=== PATIENT | female | born 1965 | race Caucasian/White ===

== ENCOUNTER 2017-05-11 14:37 | Emergency (ER) | payer OTHER ==
[~2017-05-11] VITALS: Ht 165.1 cm; Wt 56.2 kg
[~2017-05-11 14:37] MED LIST: 100CC Multi-Ad1 EACH; ACET250 PO; ACET325 PO; ACETAZOLAMIDE PO; ALBU3IS INH; ALBU90I INH; ALBU90OI INH; ALBU90OI6 INH; ALBU90OI61 INH; ALBUIS IH; AMOCLA875 PO; AMOX500 PO; ASCO500 PT; AZIT250 PO; BIOTIN-D1 GM PO; BISA10S PR; BUDE.5 NEB; BUDE6HFA; BUDE6HFA INH; BUME2 PO; Bupropion Xl150 MG PO; CALCA400CH PO; CEPH500 PO; CHLORHEXIDINE FL1 ML; CHLORHEXIDINE FL1 ML MC; CHOL10002; CHOL10002 PO; CIPR500 PO; CODGUAEL PO; CULTURELLE1 EACH PT; CYCL10 PO; Cubicin500 MG/VIA IV; DELTASONE20 MG PO; DIAZ5 PO; DOCU100 PO; DOXY100 PO; DULERA 100 MCG/13 GM IH; DULERA 200 MCG/13 GM INH; DULO30 PO; Desyrel50 MG PO; ENOX30I SC; EPOE4000I SC; ETHA400 PO; Esgic Tablet1 EACH PO; FAMO20 PO; FENT25TP TOP; FENT50TP TOP; FLUSAL5005 IH; FURO20 PO; Floxin10 ML; GUAI600T33 PO; HYDACE10B PO; HYDACE5 PO; HYDMOR4 PO; HYDR-86; HYDR-86 PO; HYDR1TAB94; HYDR1TAB94 PO; Heparin 5,5000 U/0.5 IJ; Heparin 5,5000 U/0.5 SC; Hydrocodone-Ap1 EA26 PO; IBUP600 PO; INSLIS75I; Ipratr-Albuterol3 ML INH; Itraconazole100 MG PO; K-Dur 20 meq T20 MEQ PO; K-Dur10 MEQ; LACT10SY PO; LAVAP17G PO; LEVA.63IS INH; LEVFLO250; LEVFLO250 PO; LEVO750 PO; LEVOFLOXACIN750 MG PO; LIDO5TP TOP; LORA.5 PO; MECL12.5 PO; MELO7.5 PO; MEROPENEM1000 MG IV; METO10 PO; METPRE4DP PO; MIRT15 PO; Maxalt Mlt5 MG PO; Micro-K10 MEQ PT; Mirtazapine7.5 MG PO; NICO21TP; NICO21TP TD; Nebcin40 MG/ML; Nebcin40 MG/ML IV; Norco 5-325 Ta1 EACH PO; OMEP20ER PO; ONDA4 PO; OSTERA TABLET1 EACH PO; OXYACE5T PO; OXYC5 PO; Omeprazole20 M1; PANT20 PO; PARO20 PO; POTCHL10ER PO; POTCHL20ER PO; PRED10 PO; PRED20 PO; PRED5 PO; PREG100 PO; PREG50 PO; PREVPAC PO; PROC5 PO; PROM25 PO; Percocet 5-3251 EACH PO; Potassium Chlo10 ME1 PO; Prednisone10 MG PO; Prednisone20 MG PO; Pseudoephedrine30 MG PO; QUET25 PT; RIFA300 PO; ROBITUSSIN COU118 M1 PO; ROFL500T PO; Ropinirole HC0.25 MG PO; Ropinirole HCl0.5 MG PO; Ropinirole HCl1 MG PO; SENN187 PO; SERT100 PO; SODCHL.65S; SPIR25 PO; SPIRIVA; SUMA25 PO; Spironolactone25 MG PO; TETR250 PO; TIOT18 IH; TIOT18 INH; TOBRAMYCIN; TOBRAMYCIN IV; TRAZ50 PO; Tazicef1 G1 IV; VALS80 PO; VANCO-0.9%750 MG/150 IV; VANCOMYCIN750 MG/250 IV; VARE1 PO; VITAMIN D-32000 UNIT PO; Ventolin Soln3 ML INH; Vitamin D2000 UNIT PO; ZINC15 PT; ZINC220 PO; ZOLP10 PO; Zosyn 4.54.5 GM/100 IV; [UNRECOGNIZED DRUG - OTHER]
[2017-05-11] MEDS ORDERED: ASCO500 PO (15:09)
[2017-05-11] MEDS ORDERED: ACYC200 PO (15:10)
[2017-05-11] MEDS ORDERED: BUSP5 PO (15:11)
[2017-05-11] MEDS ORDERED: ROPI.25 PO (15:11)
[2017-05-11] MEDS ORDERED: ACET500 PO (15:13)
[2017-05-11] MEDS ORDERED: PREG100 PO (15:13)
[2017-05-11] MEDS ORDERED: MIRT15ST MM (15:14)
[2017-05-11] MEDS ORDERED: GUAI600T33 PO (15:15)
[2017-05-11 15:32] LABS: Base Excess Venous 8.7 mmol/L; Bicarbonate Venous 30.8 mmol/L (24.0-30.0); PCO2 Venous 59.4 mmHg (38-42); PO2 Venous 175 mmHg (38-42); pH Blood Venous 7.37 (7.34-7.37)
[2017-05-11 15:46] LABS: BASOPHILS ABSOLUTE AUTO 0.03 K/mm3 (0.00-0.23); BASOPHILS PERCENT AUTO 0 % (0-2); EOSINOPHILS ABSOLUTE AUTO 0.09 K/mm3 (0.00-0.68); EOSINOPHILS PERCENT AUTO 1 % (0-6); Hematocrit 38.4 % (33.0-51.0); Hemoglobin 11.3 g/dL (11.5-16.0); IMMATURE GRAN ABSOLUTE AUTO 0.02 K/mm3 (0.00-0.10); IMMATURE GRAN PERCENT AUTO 0 % (0-1); LYMPHOCYTES ABSOLUTE AUTO 0.69 K/mm3 (0.84-5.20); LYMPHOCYTES PERCENT AUTO 6 % (21-46); MONOCYTES ABSOLUTE AUTO 0.46 K/mm3 (0.16-1.47); MONOCYTES PERCENT AUTO 4 % (4-13); Mean Corpuscular HGB 25.4 pg (26.0-34.0); Mean Corpuscular HGB Conc 29.4 g/dL (31.5-36.5); Mean Corpuscular Volume 86 fL (80-100); Mean Platelet Volume 10.1 fL (9.1-12.4); NEUTROPHILS ABSOLUTE AUTO 10.95 K/mm3 (1.96-9.15); NEUTROPHILS PERCENT AUTO 90 % (41-73); Platelet Count 248 K/mm3 (150-400); RDW Coefficient Variation 16.4 % (11.7-14.2); RDW Standard Deviation 52.7 fL (35.1-46.3); Red Blood Cell Count 4.45 M/mm3 (3.80-5.20); White Blood Cell Count 12.24 K/mm3 (4.00-11.30)
[2017-05-11 15:48] LABS: Influenza A Negative (NEGATIVE); Influenza B Negative (NEGATIVE)
[2017-05-11 16:00] LABS: Alanine Aminotransfer (ALT/SGP 13 U/L (12-78); Albumin, Blood 3.1 g/dL (3.4-5.0); Albumin/Globulin Ratio 0.6 (0.8-1.8); Alk Phos 172 U/L (50-136); Anion Gap 5 mmol/L (6-16); Aspartate Aminotrans (AST/SGOT 11 U/L (12-37); Bilirubin, Total 0.5 mg/dL (0.1-1.0); Blood Urea Nitrogen 16 mg/dL (8-24); Bun/Creatinine Ratio 19.4 (12.0-20.0); CO2, Blood 33 mmol/L (21-32); Calcium, Blood 9.7 mg/dL (8.5-10.1); Chloride, Blood 103 mmol/L (98-108); Creatinine, Blood 0.83 mg/dL (0.40-1.00); Glomerular Filtration Rate >60 (60-); Glucose, Blood 123 mg/dL (70-99); Potassium, Blood 3.9 mmol/L (3.5-5.5); Sodium, Blood 141 mmol/L (136-145); Total Protein, Blood 8.1 g/dL (6.4-8.2)
[2017-05-11] MEDS ORDERED: Cleocin HCl300 MG PO (17:46)
[2017-05-11] MEDS ORDERED: LEVO750 PO (17:46)
[2018-03-14] MEDS ORDERED: TRAZ150T57 (17:48)
[2018-03-14] MEDS ORDERED: Zanaflex2 M1 PO (17:48)
[2018-03-14] MEDS ORDERED: PANT40 PO (17:48)
[2018-03-14] MEDS ORDERED: IRON150C PO (17:49)
[2018-03-14] MEDS ORDERED: Vitamin C100 M1 PO (17:49)
[2018-03-14] MEDS ORDERED: STIOLTO RESPIMAT4 GM INH (20:40)
[2018-03-17] MEDS ORDERED: PRED10 PO (10:36)
== END 2017-05-11 18:45 | disposition home or self-care (01) ==
LOC: ER 14:37
PROVIDERS: Physician Assistant
DX: J18.9 Pneumonia, unspecified organism (principal); Z79.899 Other long term (current) drug therapy; Z79.52 Long term (current) use of systemic steroids; F41.9 Anxiety disorder, unspecified; I10 Essential (primary) hypertension; J44.9 Chronic obstructive pulmonary disease, unspecified; Z87.891 Personal history of nicotine dependence
CPT/HCPCS: 31720; 36415; 71046; 80053; 82803; 83605; 83880; 84484; 85025; 87040; 87804; 93005; 93010; 94640; 96365; 96375; 99284; J1170; J2405

== ENCOUNTER 2017-05-24 14:51 | Emergency (ER) | payer OTHER ==
[~2017-05-24] VITALS: Ht 165.1 cm; Wt 56.2 kg
[~2017-05-24 14:51] MED LIST changes: +ACET500 PO; +ACYC200 PO; +ASCO500 PO; +BUSP5 PO; +Cleocin HCl300 MG PO; +MIRT15ST MM; +ROPI.25 PO
[2017-05-24 16:35] LABS: BASOPHILS ABSOLUTE AUTO 0.07 K/mm3 (0.00-0.23); BASOPHILS PERCENT AUTO 1 % (0-2); EOSINOPHILS ABSOLUTE AUTO 0.17 K/mm3 (0.00-0.68); EOSINOPHILS PERCENT AUTO 2 % (0-6); Hemoglobin 11.6 g/dL (11.5-16.0); IMMATURE GRAN ABSOLUTE AUTO 0.04 K/mm3 (0.00-0.10); IMMATURE GRAN PERCENT AUTO 0 % (0-1); LYMPHOCYTES ABSOLUTE AUTO 0.93 K/mm3 (0.84-5.20); LYMPHOCYTES PERCENT AUTO 9 % (21-46); MONOCYTES ABSOLUTE AUTO 0.27 K/mm3 (0.16-1.47); MONOCYTES PERCENT AUTO 3 % (4-13); Mean Corpuscular HGB 25.2 pg (26.0-34.0); Mean Corpuscular Volume 87 fL (80-100); NEUTROPHILS ABSOLUTE AUTO 8.69 K/mm3 (1.96-9.15); NEUTROPHILS PERCENT AUTO 85 % (41-73); Platelet Count 249 K/mm3 (150-400); RDW Coefficient Variation 16.8 % (11.7-14.2); RDW Standard Deviation 53.5 fL (35.1-46.3); White Blood Cell Count 10.17 K/mm3 (4.00-11.30)
[2017-05-24 16:45] LABS: Alanine Aminotransfer (ALT/SGP 15 U/L (12-78); Albumin, Blood 3.2 g/dL (3.4-5.0); Albumin/Globulin Ratio 0.8 (0.8-1.8); Alk Phos 142 U/L (50-136); Anion Gap 2 mmol/L (6-16); Aspartate Aminotrans (AST/SGOT 15 U/L (12-37); Bilirubin, Total 0.2 mg/dL (0.1-1.0); Blood Urea Nitrogen 18 mg/dL (8-24); Bun/Creatinine Ratio 21.8 (12.0-20.0); CO2, Blood 40 mmol/L (21-32); Calcium, Blood 8.9 mg/dL (8.5-10.1); Chloride, Blood 99 mmol/L (98-108); Creatinine, Blood 0.83 mg/dL (0.40-1.00); Globulin, Blood 4.2 g/dL (2.2-4.0); Glomerular Filtration Rate >60 (60-); Glucose, Blood 132 mg/dL (70-99); Potassium, Blood 3.5 mmol/L (3.5-5.5); Sodium, Blood 141 mmol/L (136-145); Total Protein, Blood 7.4 g/dL (6.4-8.2)
[2017-05-24 16:57] LABS: Source, Urine Clean Catch
[2017-05-24 17:02] LABS: Bilirubin, Urine Neg (Neg); Blood, Urine 1+ (Neg); Glucose Qualitative, Urine Neg (Neg); Ketones, Urine Neg (Neg); Leukocyte Esterase, Urine Neg (Neg); Nitrite, Urine Neg (Neg); Protein, Urine Neg (Neg); Specific Gravity, Urine 1.015 (1.003-1.022); Urobilinogen, Urine NORM (Normal)
[2017-05-24 17:07] LABS: Appearance, Urine Clear (Clear); Color, Urine Yellow (P-Yellow)
[2017-05-24 17:08] LABS: Bacteria Rare /hpf; Squamous Epithelial Cells Few /hpf (Few); White Blood Cells, Urine 0-2 /hpf (0-5)
[2017-05-25] MEDS ORDERED: Prednisone20 MG PO (23:47)
[2018-03-14] MEDS ORDERED: PANT40 PO (17:48)
[2018-03-14] MEDS ORDERED: Zanaflex2 M1 PO (17:48)
[2018-03-14] MEDS ORDERED: TRAZ150T57 (17:48)
[2018-03-14] MEDS ORDERED: Vitamin C100 M1 PO (17:49)
[2018-03-14] MEDS ORDERED: IRON150C PO (17:49)
[2018-03-14] MEDS ORDERED: STIOLTO RESPIMAT4 GM INH (20:40)
[2018-03-17] MEDS ORDERED: PRED10 PO (10:36)
== END 2017-05-24 18:22 | disposition home or self-care (01) ==
LOC: ER 14:51
PROVIDERS: Physician Assistant
DX: J44.9 Chronic obstructive pulmonary disease, unspecified (principal); F41.9 Anxiety disorder, unspecified; I10 Essential (primary) hypertension; Z79.899 Other long term (current) drug therapy; Z79.52 Long term (current) use of systemic steroids; Z79.2 Long term (current) use of antibiotics; Z87.891 Personal history of nicotine dependence
CPT/HCPCS: 36415; 71046; 80053; 81001; 85025; 94640; 96361; 96374; 96375; 99283; J1170; J2405; J7030

== ENCOUNTER 2017-05-25 21:14 | Emergency (ER) | payer OTHER ==
[~2017-05-25] VITALS: Ht 175.3 cm; Wt 54.4 kg
[2017-05-25 21:45] LABS: BASOPHILS ABSOLUTE AUTO 0.07 K/mm3 (0.00-0.23); BASOPHILS PERCENT AUTO 1 % (0-2); EOSINOPHILS ABSOLUTE AUTO 0.14 K/mm3 (0.00-0.68); EOSINOPHILS PERCENT AUTO 1 % (0-6); Hematocrit 40.5 % (33.0-51.0); Hemoglobin 11.4 g/dL (11.5-16.0); IMMATURE GRAN ABSOLUTE AUTO 0.04 K/mm3 (0.00-0.10); IMMATURE GRAN PERCENT AUTO 0 % (0-1); LYMPHOCYTES ABSOLUTE AUTO 1.82 K/mm3 (0.84-5.20); LYMPHOCYTES PERCENT AUTO 17 % (21-46); MONOCYTES ABSOLUTE AUTO 0.39 K/mm3 (0.16-1.47); MONOCYTES PERCENT AUTO 4 % (4-13); Mean Corpuscular HGB 25.4 pg (26.0-34.0); Mean Corpuscular HGB Conc 28.1 g/dL (31.5-36.5); NEUTROPHILS ABSOLUTE AUTO 8.07 K/mm3 (1.96-9.15); NEUTROPHILS PERCENT AUTO 77 % (41-73); Platelet Count 246 K/mm3 (150-400); RDW Coefficient Variation 16.6 % (11.7-14.2); RDW Standard Deviation 54.9 fL (35.1-46.3); Red Blood Cell Count 4.49 M/mm3 (3.80-5.20); White Blood Cell Count 10.53 K/mm3 (4.00-11.30)
[2017-05-25 21:46] LABS: Mean Corpuscular Volume 90 fL (80-100)
[2017-05-25 22:03] LABS: Alanine Aminotransfer (ALT/SGP 17 U/L (12-78); Albumin, Blood 3.3 g/dL (3.4-5.0); Albumin/Globulin Ratio 0.8 (0.8-1.8); Alk Phos 157 U/L (50-136); Anion Gap 4 mmol/L (6-16); Aspartate Aminotrans (AST/SGOT 18 U/L (12-37); Bilirubin, Total 0.2 mg/dL (0.1-1.0); Blood Urea Nitrogen 13 mg/dL (8-24); Bun/Creatinine Ratio 18.1 (12.0-20.0); CO2, Blood 35 mmol/L (21-32); Calcium, Blood 8.9 mg/dL (8.5-10.1); Chloride, Blood 105 mmol/L (98-108); Creatinine, Blood 0.72 mg/dL (0.40-1.00); Globulin, Blood 4.2 g/dL (2.2-4.0); Glomerular Filtration Rate >60 (60-); Glucose, Blood 114 mg/dL (70-99); Potassium, Blood 3.6 mmol/L (3.5-5.5); Sodium, Blood 144 mmol/L (136-145); Total Protein, Blood 7.5 g/dL (6.4-8.2); Troponin I <0.015 ng/mL (0.000-0.040)
[2017-05-25] MEDS ORDERED: Prednisone20 MG PO (23:47)
[2018-03-14] MEDS ORDERED: TRAZ150T57 (17:48)
[2018-03-14] MEDS ORDERED: Zanaflex2 M1 PO (17:48)
[2018-03-14] MEDS ORDERED: PANT40 PO (17:48)
[2018-03-14] MEDS ORDERED: Vitamin C100 M1 PO (17:49)
[2018-03-14] MEDS ORDERED: IRON150C PO (17:49)
[2018-03-14] MEDS ORDERED: STIOLTO RESPIMAT4 GM INH (20:40)
[2018-03-17] MEDS ORDERED: PRED10 PO (10:36)
== END 2017-05-26 01:06 | disposition home or self-care (01) ==
LOC: ER 21:14
PROVIDERS: Emergency Medicine
DX: J44.1 Chronic obstructive pulmonary disease with (acute) exacerbation (principal); Z79.899 Other long term (current) drug therapy; Z79.52 Long term (current) use of systemic steroids; Z86.711 Personal history of pulmonary embolism; Z90.89 Acquired absence of other organs; Z87.891 Personal history of nicotine dependence
CPT/HCPCS: 31720; 36415; 71045; 80053; 84484; 85025; 85379; 93005; 93010; 94002; 94644; 96374; 96375; 99284; J1170; J1885

== ENCOUNTER 2017-08-26 00:22 | Day surgery (SDC) | payer OTHER ==
[~2017-08-26 00:22] MED LIST changes: +ACET500; -ACET500 PO; -SERT100 PO; +SERT100 PT
== END 2017-08-26 14:56 | disposition home or self-care (01) ==
LOC: ATC 00:22
DX: J15.1 Pneumonia due to Pseudomonas (principal); Z87.891 Personal history of nicotine dependence; J44.9 Chronic obstructive pulmonary disease, unspecified; J01.00 Acute maxillary sinusitis, unspecified; M79.1 Myalgia
CPT/HCPCS: 96365; J1642; J3260

== ENCOUNTER → 2017-08-29 | Outpatient (CLI) | payer OTHER ==
[2017-08-29 15:10] LABS: Alanine Aminotransfer (ALT/SGP 17 U/L (12-78); Albumin, Blood 3.2 g/dL (3.4-5.0); Albumin/Globulin Ratio 0.7 (0.8-1.8); Alk Phos 125 U/L (50-136); Aspartate Aminotrans (AST/SGOT 16 U/L (12-37); Bilirubin, Total 0.4 mg/dL (0.1-1.0); Blood Urea Nitrogen 11 mg/dL (8-24); Bun/Creatinine Ratio 12.1 (12.0-20.0); Calcium, Blood 8.8 mg/dL (8.5-10.1); Chloride, Blood 90 mmol/L (98-108); Creatinine, Blood 0.91 mg/dL (0.40-1.00); Globulin, Blood 4.4 g/dL (2.2-4.0); Glomerular Filtration Rate >60 (60-); Glucose, Blood 100 mg/dL (70-99); Potassium, Blood 3.2 mmol/L (3.5-5.5); Tobramycin, Random 3.9 ug/mL; Total Protein, Blood 7.6 g/dL (6.4-8.2)
[2017-08-29 15:13] LABS: Anion Gap Unable to Calculate mmol/L (6-16)
[2017-08-29 15:18] LABS: Sodium, Blood 138 mmol/L (136-145)
[2017-08-29 15:24] LABS: CO2, Blood >45 mmol/L (21-32)
== END ==
LOC: LAB HH 14:45
PROVIDERS: Registered Nurse
DX: J44.1 Chronic obstructive pulmonary disease with (acute) exacerbation (principal); J15.1 Pneumonia due to Pseudomonas
CPT/HCPCS: 80053; 80200

== ENCOUNTER 2017-09-13 13:04 | Inpatient (IN) | payer OTHER ==
[~2017-09-13] VITALS: Ht 165.1 cm; Wt 59.8 kg
[~2017-09-13 13:04] MED LIST changes: -ACET500; +ACET500 PO; +SERT100 PO; -SERT100 PT
[2017-09-13 14:32] LABS: BASOPHILS ABSOLUTE AUTO 0.04 K/mm3 (0.00-0.23); BASOPHILS PERCENT AUTO 0 % (0-2); EOSINOPHILS ABSOLUTE AUTO 0.12 K/mm3 (0.00-0.68); EOSINOPHILS PERCENT AUTO 1 % (0-6); Hematocrit 39.3 % (33.0-51.0); Hemoglobin 11.8 g/dL (11.5-16.0); IMMATURE GRAN ABSOLUTE AUTO 0.03 K/mm3 (0.00-0.10); IMMATURE GRAN PERCENT AUTO 0 % (0-1); LYMPHOCYTES ABSOLUTE AUTO 0.65 K/mm3 (0.84-5.20); LYMPHOCYTES PERCENT AUTO 5 % (21-46); MONOCYTES ABSOLUTE AUTO 0.49 K/mm3 (0.16-1.47); MONOCYTES PERCENT AUTO 4 % (4-13); Mean Corpuscular Volume 90 fL (80-100); NEUTROPHILS ABSOLUTE AUTO 11.98 K/mm3 (1.96-9.15); NEUTROPHILS PERCENT AUTO 90 % (41-73); Platelet Count 241 K/mm3 (150-400); RDW Coefficient Variation 15.4 % (11.7-14.2); RDW Standard Deviation 51.4 fL (35.1-46.3); Red Blood Cell Count 4.37 M/mm3 (3.80-5.20); White Blood Cell Count 13.31 K/mm3 (4.00-11.30)
[2017-09-13 14:59] LABS: Alanine Aminotransfer (ALT/SGP 13 U/L (12-78); Albumin, Blood 3.1 g/dL (3.4-5.0); Albumin/Globulin Ratio 0.8 (0.8-1.8); Alk Phos 117 U/L (50-136); Anion Gap 3 mmol/L (6-16); Aspartate Aminotrans (AST/SGOT 13 U/L (12-37); Bilirubin, Total 0.3 mg/dL (0.1-1.0); Blood Urea Nitrogen 13 mg/dL (8-24); Bun/Creatinine Ratio 16.1 (12.0-20.0); CO2, Blood 38 mmol/L (21-32); Calcium, Blood 8.5 mg/dL (8.5-10.1); Chloride, Blood 98 mmol/L (98-108); Creatinine, Blood 0.81 mg/dL (0.40-1.00); Glomerular Filtration Rate >60 (60-); Glucose, Blood 117 mg/dL (70-99); Potassium, Blood 3.7 mmol/L (3.5-5.5); Sodium, Blood 139 mmol/L (136-145); Total Protein, Blood 7.1 g/dL (6.4-8.2)
[2017-09-14 04:09] LABS: BASOPHILS PERCENT AUTO 0 % (0-2); EOSINOPHILS PERCENT AUTO 0 % (0-6); Hematocrit 35.9 % (33.0-51.0); Hemoglobin 10.7 g/dL (11.5-16.0); IMMATURE GRAN ABSOLUTE AUTO 0.02 K/mm3 (0.00-0.10); IMMATURE GRAN PERCENT AUTO 0 % (0-1); LYMPHOCYTES PERCENT AUTO 5 % (21-46); MONOCYTES ABSOLUTE AUTO 0.03 K/mm3 (0.16-1.47); MONOCYTES PERCENT AUTO 1 % (4-13); Mean Corpuscular HGB 26.6 pg (26.0-34.0); Mean Corpuscular HGB Conc 29.8 g/dL (31.5-36.5); Mean Corpuscular Volume 89 fL (80-100); NEUTROPHILS ABSOLUTE AUTO 6.24 K/mm3 (1.96-9.15); NEUTROPHILS PERCENT AUTO 95 % (41-73); Platelet Count 198 K/mm3 (150-400); RDW Coefficient Variation 14.9 % (11.7-14.2); RDW Standard Deviation 48.2 fL (35.1-46.3); Red Blood Cell Count 4.03 M/mm3 (3.80-5.20); White Blood Cell Count 6.59 K/mm3 (4.00-11.30)
[2017-09-14 04:40] LABS: Alanine Aminotransfer (ALT/SGP 13 U/L (12-78); Albumin, Blood 2.6 g/dL (3.4-5.0); Albumin/Globulin Ratio 0.6 (0.8-1.8); Alk Phos 98 U/L (50-136); Anion Gap 5 mmol/L (6-16); Aspartate Aminotrans (AST/SGOT 11 U/L (12-37); Bilirubin, Total 0.4 mg/dL (0.1-1.0); Blood Urea Nitrogen 16 mg/dL (8-24); Bun/Creatinine Ratio 22.2 (12.0-20.0); CO2, Blood 35 mmol/L (21-32); Calcium, Blood 7.9 mg/dL (8.5-10.1); Chloride, Blood 101 mmol/L (98-108); Creatinine, Blood 0.72 mg/dL (0.40-1.00); Globulin, Blood 4.2 g/dL (2.2-4.0); Glomerular Filtration Rate >60 (60-); Glucose, Blood 135 mg/dL (70-99); Potassium, Blood 3.9 mmol/L (3.5-5.5); Sodium, Blood 141 mmol/L (136-145); Total Protein, Blood 6.8 g/dL (6.4-8.2)
[2017-09-14 05:33] LABS: PCO2 Arterial 72.4 mmHg (35-45); pH Blood Arterial 7.32 (7.35-7.45)
[2017-09-15 05:06] LABS: BASOPHILS ABSOLUTE AUTO 0.01 K/mm3 (0.00-0.23); BASOPHILS PERCENT AUTO 0 % (0-2); EOSINOPHILS PERCENT AUTO 0 % (0-6); Hematocrit 34.1 % (33.0-51.0); Hemoglobin 10.3 g/dL (11.5-16.0); IMMATURE GRAN ABSOLUTE AUTO 0.03 K/mm3 (0.00-0.10); IMMATURE GRAN PERCENT AUTO 0 % (0-1); LYMPHOCYTES ABSOLUTE AUTO 0.36 K/mm3 (0.84-5.20); LYMPHOCYTES PERCENT AUTO 4 % (21-46); MONOCYTES ABSOLUTE AUTO 0.13 K/mm3 (0.16-1.47); MONOCYTES PERCENT AUTO 1 % (4-13); Mean Corpuscular HGB 26.3 pg (26.0-34.0); Mean Corpuscular HGB Conc 30.2 g/dL (31.5-36.5); Mean Corpuscular Volume 87 fL (80-100); Mean Platelet Volume 11.3 fL (9.1-12.4); NEUTROPHILS ABSOLUTE AUTO 9.28 K/mm3 (1.96-9.15); NEUTROPHILS PERCENT AUTO 95 % (41-73); Platelet Count 212 K/mm3 (150-400); RDW Coefficient Variation 15.5 % (11.7-14.2); RDW Standard Deviation 48.7 fL (35.1-46.3); Red Blood Cell Count 3.92 M/mm3 (3.80-5.20); White Blood Cell Count 9.81 K/mm3 (4.00-11.30)
[2017-09-15 05:24] LABS: Albumin, Blood 2.5 g/dL (3.4-5.0); Anion Gap 6 mmol/L (6-16); Blood Urea Nitrogen 18 mg/dL (8-24); CO2, Blood 34 mmol/L (21-32); Calcium, Blood 7.8 mg/dL (8.5-10.1); Chloride, Blood 104 mmol/L (98-108); Glomerular Filtration Rate >60 (60-); Glucose, Blood 114 mg/dL (70-99); Phosphorus, Blood 1.4 mg/dL (2.5-4.9); Potassium, Blood 3.3 mmol/L (3.5-5.5); Sodium, Blood 144 mmol/L (136-145)
[2017-09-15 08:33] LABS: Influenza A Negative (NEGATIVE); Influenza B Negative (NEGATIVE)
[2017-09-16 05:38] LABS: BASOPHILS ABSOLUTE AUTO 0.01 K/mm3 (0.00-0.23); BASOPHILS PERCENT AUTO 0 % (0-2); EOSINOPHILS PERCENT AUTO 0 % (0-6); Hematocrit 33.9 % (33.0-51.0); Hemoglobin 10.2 g/dL (11.5-16.0); IMMATURE GRAN ABSOLUTE AUTO 0.06 K/mm3 (0.00-0.10); IMMATURE GRAN PERCENT AUTO 1 % (0-1); LYMPHOCYTES ABSOLUTE AUTO 0.59 K/mm3 (0.84-5.20); LYMPHOCYTES PERCENT AUTO 5 % (21-46); MONOCYTES ABSOLUTE AUTO 0.46 K/mm3 (0.16-1.47); MONOCYTES PERCENT AUTO 4 % (4-13); Mean Corpuscular HGB 26.8 pg (26.0-34.0); Mean Corpuscular HGB Conc 30.1 g/dL (31.5-36.5); Mean Corpuscular Volume 89 fL (80-100); Mean Platelet Volume 10.6 fL (9.1-12.4); NEUTROPHILS ABSOLUTE AUTO 10.59 K/mm3 (1.96-9.15); NEUTROPHILS PERCENT AUTO 91 % (41-73); Platelet Count 237 K/mm3 (150-400); RDW Standard Deviation 52.3 fL (35.1-46.3); White Blood Cell Count 11.71 K/mm3 (4.00-11.30)
[2017-09-16 05:58] LABS: Albumin, Blood 2.3 g/dL (3.4-5.0); Anion Gap 4 mmol/L (6-16); Blood Urea Nitrogen 22 mg/dL (8-24); CO2, Blood 33 mmol/L (21-32); Calcium, Blood 7.7 mg/dL (8.5-10.1); Chloride, Blood 109 mmol/L (98-108); Glomerular Filtration Rate >60 (60-); Glucose, Blood 101 mg/dL (70-99); Phosphorus, Blood 1.6 mg/dL (2.5-4.9); Potassium, Blood 3.5 mmol/L (3.5-5.5); Sodium, Blood 146 mmol/L (136-145)
[2017-09-16] MEDS ORDERED: ALBU2.5V5 NEB (12:28)
[2017-09-16] MEDS ORDERED: LEVO750 PO (12:29)
[2017-09-16] MEDS ORDERED: Tazicef1 G1 IV (12:30)
[2017-09-16] MEDS ORDERED: DELTASONE20 MG PO (12:32)
[2017-09-16 20:13] LABS: M PNEUMONIAE IGG ABS 333 U/mL (0-99); M PNEUMONIAE IGM ABS <770 U/mL (0-769)
== END 2017-09-16 13:19 | disposition home or self-care (01) | DRG 177 ==
LOC: ER 13:04 → PCU 16:24
PROVIDERS: Emergency Medicine; Family Medicine; Internal Medicine Critical Care Medicine
DX: J15.1 Pneumonia due to Pseudomonas (principal); J96.21 Acute and chronic respiratory failure with hypoxia; J96.22 Acute and chronic respiratory failure with hypercapnia; J44.0 Chronic obstructive pulmonary disease with (acute) lower respiratory infection; J44.1 Chronic obstructive pulmonary disease with (acute) exacerbation; J15.6 Pneumonia due to other Gram-negative bacteria; Z86.711 Personal history of pulmonary embolism; Z79.01 Long term (current) use of anticoagulants; F41.8 Other specified anxiety disorders; D63.8 Anemia in other chronic diseases classified elsewhere; G89.4 Chronic pain syndrome; K21.9 Gastro-esophageal reflux disease without esophagitis; E87.6 Hypokalemia; E83.39 Other disorders of phosphorus metabolism; Y95 Nosocomial condition
CPT/HCPCS: 31502; 31720; 36415; 36600; 71046; 80053; 80069; 82803; 83605; 85025; 86738; 87040; 87070; 87077; 87186; 87205; 87449; 87804; 94640; 94644; 94762; 96365; 96367; 96375; 99285; C1751; J1650; J1956; J2020; J2060; J2543; J2930; J3010; J7030; J7060

== ENCOUNTER 2017-09-23 11:11 | Day surgery (SDC) | payer OTHER ==
[~2017-09-23] VITALS: Ht 165.1 cm; Wt 57.6 kg
[~2017-09-23 11:11] MED LIST changes: +ALBU2.5V5 NEB
== END 2017-09-23 22:56 | disposition home or self-care (01) ==
LOC: ORSCMMR 11:11 → ORSCSDS 15:15 → ORSCMMR 22:56
DX: R10.9 Unspecified abdominal pain (principal); K62.1 Rectal polyp; D12.2 Benign neoplasm of ascending colon; D12.0 Benign neoplasm of cecum; K64.8 Other hemorrhoids; J44.9 Chronic obstructive pulmonary disease, unspecified; Z87.891 Personal history of nicotine dependence; Z79.899 Other long term (current) drug therapy
CPT/HCPCS: 88305; 88342; J2250; J7120

== ENCOUNTER 2017-10-02 21:05 | Inpatient (IN) | payer OTHER ==
[~2017-10-02] VITALS: Ht 165.1 cm; Wt 60.8 kg
[2017-10-02 21:32] LABS: PCO2 Arterial 70.5 mmHg (35-45); pH Blood Arterial 7.33 (7.35-7.45)
[2017-10-02 21:33] LABS: BASOPHILS ABSOLUTE AUTO 0.06 K/mm3 (0.00-0.23); BASOPHILS PERCENT AUTO 1 % (0-2); EOSINOPHILS ABSOLUTE AUTO 0.12 K/mm3 (0.00-0.68); EOSINOPHILS PERCENT AUTO 1 % (0-6); Hematocrit 39.4 % (33.0-51.0); Hemoglobin 11.5 g/dL (11.5-16.0); IMMATURE GRAN ABSOLUTE AUTO 0.03 K/mm3 (0.00-0.10); IMMATURE GRAN PERCENT AUTO 0 % (0-1); LYMPHOCYTES ABSOLUTE AUTO 1.27 K/mm3 (0.84-5.20); LYMPHOCYTES PERCENT AUTO 11 % (21-46); MONOCYTES ABSOLUTE AUTO 0.55 K/mm3 (0.16-1.47); MONOCYTES PERCENT AUTO 5 % (4-13); Mean Corpuscular HGB 26.8 pg (26.0-34.0); Mean Corpuscular HGB Conc 29.2 g/dL (31.5-36.5); Mean Corpuscular Volume 92 fL (80-100); Mean Platelet Volume 11.3 fL (9.1-12.4); NEUTROPHILS ABSOLUTE AUTO 9.33 K/mm3 (1.96-9.15); NEUTROPHILS PERCENT AUTO 82 % (41-73); Platelet Count 198 K/mm3 (150-400); RDW Coefficient Variation 16.4 % (11.7-14.2); RDW Standard Deviation 54.9 fL (35.1-46.3); Red Blood Cell Count 4.29 M/mm3 (3.80-5.20); White Blood Cell Count 11.36 K/mm3 (4.00-11.30)
[2017-10-02 21:47] LABS: Alanine Aminotransfer (ALT/SGP 20 U/L (12-78); Albumin/Globulin Ratio 0.8 (0.8-1.8); Alk Phos 90 U/L (50-136); Anion Gap 3 mmol/L (6-16); Aspartate Aminotrans (AST/SGOT 15 U/L (12-37); Bilirubin, Total 0.3 mg/dL (0.1-1.0); Blood Urea Nitrogen 13 mg/dL (8-24); CO2, Blood 37 mmol/L (21-32); Calcium, Blood 8.2 mg/dL (8.5-10.1); Chloride, Blood 103 mmol/L (98-108); Creatinine, Blood 0.69 mg/dL (0.40-1.00); Globulin, Blood 3.9 g/dL (2.2-4.0); Glomerular Filtration Rate >60 (60-); Glucose, Blood 95 mg/dL (70-99); Potassium, Blood 4.3 mmol/L (3.5-5.5); Sodium, Blood 143 mmol/L (136-145); Total Protein, Blood 6.9 g/dL (6.4-8.2); Troponin I <0.015 ng/mL (0.000-0.040)
[2017-10-02] MEDS ORDERED: OXYC5 PO (22:33)
[2017-10-03 01:35] LABS: Bilirubin, Urine Neg (Neg); Blood, Urine 1+ (Neg); Glucose Qualitative, Urine Neg (Neg); Ketones, Urine Neg (Neg); Leukocyte Esterase, Urine Neg (Neg); Nitrite, Urine Neg (Neg); Protein, Urine 2+ (Neg); Source, Urine Clean Catch; Specific Gravity, Urine 1.005 (1.003-1.022); Urobilinogen, Urine NORM (Normal)
[2017-10-03 01:37] LABS: Appearance, Urine Clear (Clear); Color, Urine Pale Yellow (P-Yellow)
[2017-10-03 01:47] LABS: U Amphetamine Screen Not Detected; U Barbituate Screen Not Detected; U Benzodiazapine Screen Not Detected; U Buprenorphine Screen Not Detected; U Cannabinoids Screen Not Detected; U Cocaine Screen Not Detected; U Methadone Screen Not Detected; U Methamphetamine Screen Not Detected; U Opiates Screen Not Detected; U Oxycodone Screen DETECTED; U Phencyclidine Screen Not Detected; U Propoxyphene Screen Not Detected
[2017-10-03 01:49] LABS: Bacteria Not Seen /hpf; Mucus Light (0-Heavy); Red Blood Cells, Urine 0-2 /hpf (0-2); Squamous Epithelial Cells Few /hpf (Few); White Blood Cells, Urine Rare /hpf (0-5)
[2017-10-03 03:03] LABS: Hematocrit 34.4 % (33.0-51.0); Hemoglobin 10.1 g/dL (11.5-16.0); Mean Corpuscular HGB 26.6 pg (26.0-34.0); Mean Corpuscular HGB Conc 29.4 g/dL (31.5-36.5); Mean Corpuscular Volume 91 fL (80-100); Mean Platelet Volume 11.1 fL (9.1-12.4); Platelet Count 172 K/mm3 (150-400); RDW Coefficient Variation 16.4 % (11.7-14.2); RDW Standard Deviation 54.4 fL (35.1-46.3); White Blood Cell Count 9.49 K/mm3 (4.00-11.30)
[2017-10-03 03:17] LABS: Alanine Aminotransfer (ALT/SGP 20 U/L (12-78); Albumin, Blood 2.4 g/dL (3.4-5.0); Albumin/Globulin Ratio 0.7 (0.8-1.8); Alk Phos 73 U/L (50-136); Anion Gap 5 mmol/L (6-16); Aspartate Aminotrans (AST/SGOT 17 U/L (12-37); Bilirubin, Total 0.4 mg/dL (0.1-1.0); Blood Urea Nitrogen 13 mg/dL (8-24); Bun/Creatinine Ratio 21.1 (12.0-20.0); CO2, Blood 32 mmol/L (21-32); Calcium, Blood 7.2 mg/dL (8.5-10.1); Chloride, Blood 106 mmol/L (98-108); Creatinine, Blood 0.62 mg/dL (0.40-1.00); Globulin, Blood 3.3 g/dL (2.2-4.0); Glomerular Filtration Rate >60 (60-); Glucose, Blood 95 mg/dL (70-99); Potassium, Blood 4.3 mmol/L (3.5-5.5); Sodium, Blood 143 mmol/L (136-145); Total Protein, Blood 5.7 g/dL (6.4-8.2)
[2017-10-03 05:03] LABS: PCO2 Arterial 65.3 mmHg (35-45); PO2 Arterial 63.6 mmHg (80-100); pH Blood Arterial 7.31 (7.35-7.45)
[2017-10-03] MEDS ORDERED: BACL10 PO (08:00)
[2017-10-03 18:54] LABS: Tobramycin, Random 1.3 ug/mL
[2017-10-04 04:41] LABS: BASOPHILS ABSOLUTE AUTO 0.01 K/mm3 (0.00-0.23); BASOPHILS PERCENT AUTO 0 % (0-2); EOSINOPHILS PERCENT AUTO 0 % (0-6); Hematocrit 33.4 % (33.0-51.0); Hemoglobin 10.2 g/dL (11.5-16.0); IMMATURE GRAN ABSOLUTE AUTO 0.04 K/mm3 (0.00-0.10); IMMATURE GRAN PERCENT AUTO 1 % (0-1); LYMPHOCYTES ABSOLUTE AUTO 0.26 K/mm3 (0.84-5.20); LYMPHOCYTES PERCENT AUTO 3 % (21-46); MONOCYTES ABSOLUTE AUTO 0.07 K/mm3 (0.16-1.47); MONOCYTES PERCENT AUTO 1 % (4-13); Mean Corpuscular HGB 27.1 pg (26.0-34.0); Mean Corpuscular HGB Conc 30.5 g/dL (31.5-36.5); Mean Corpuscular Volume 89 fL (80-100); NEUTROPHILS ABSOLUTE AUTO 7.88 K/mm3 (1.96-9.15); NEUTROPHILS PERCENT AUTO 96 % (41-73); Platelet Count 172 K/mm3 (150-400); RDW Coefficient Variation 16.7 % (11.7-14.2); RDW Standard Deviation 54.1 fL (35.1-46.3); Red Blood Cell Count 3.76 M/mm3 (3.80-5.20); White Blood Cell Count 8.26 K/mm3 (4.00-11.30)
[2017-10-04 04:59] LABS: Albumin, Blood 2.5 g/dL (3.4-5.0); Anion Gap 6 mmol/L (6-16); Blood Urea Nitrogen 19 mg/dL (8-24); Bun/Creatinine Ratio 31.5 (12.0-20.0); CO2, Blood 30 mmol/L (21-32); Calcium, Blood 7.4 mg/dL (8.5-10.1); Chloride, Blood 109 mmol/L (98-108); Glomerular Filtration Rate >60 (60-); Glucose, Blood 110 mg/dL (70-99); Phosphorus, Blood 1.5 mg/dL (2.5-4.9); Potassium, Blood 4.2 mmol/L (3.5-5.5); Sodium, Blood 145 mmol/L (136-145)
[2017-10-04 05:45] LABS: PO2 Arterial 70.1 mmHg (80-100)
[2017-10-04 05:46] LABS: PCO2 Arterial 52.1 mmHg (35-45); pH Blood Arterial 7.36 (7.35-7.45)
== END 2017-10-04 17:01 | disposition home or self-care (01) | DRG 189 ==
LOC: ER 21:05 → ICUW 22:47 → PCU 22:47 → ICUE 22:47 → ICUW 23:36 → ICUE 23:37 → PCU 23:40 → ICUE 10-03 13:14 → PCU 10-03 16:46
PROVIDERS: Emergency Medicine; Family Medicine; Internal Medicine
DX: J96.21 Acute and chronic respiratory failure with hypoxia (principal); S72.012A Unspecified intracapsular fracture of left femur, initial encounter for closed fracture; G92 Toxic encephalopathy; J44.1 Chronic obstructive pulmonary disease with (acute) exacerbation; J96.22 Acute and chronic respiratory failure with hypercapnia; Z99.81 Dependence on supplemental oxygen; T42.8X5A Adverse effect of antiparkinsonism drugs and other central muscle-tone depressants, initial encounter; G89.4 Chronic pain syndrome; D63.8 Anemia in other chronic diseases classified elsewhere; I10 Essential (primary) hypertension; F32.9 Major depressive disorder, single episode, unspecified
CPT/HCPCS: 31720; 36415; 36600; 70450; 71045; 73502; 74177; 80053; 80069; 80200; 81001; 82803; 83605; 83880; 84145; 84484; 85025; 85027; 87070; 87077; 87186; 87205; 93005; 93010; 94640; 94762; 96365; 96375; 99285; J1100; J1642; J1650; J1956; J2310; J2543; J2930; J3010; J3260; J3370; J7030; J7050; J7060; Q9967

== ENCOUNTER 2017-11-02 19:50 | Inpatient (IN) | payer OTHER ==
[~2017-11-02] VITALS: Ht 157.5 cm; Wt 65.2 kg
[~2017-11-02 19:50] MED LIST changes: +BACL10 PO
[2017-11-02 20:32] LABS: BASOPHILS ABSOLUTE AUTO 0.06 K/mm3 (0.00-0.23); BASOPHILS PERCENT AUTO 0 % (0-2); EOSINOPHILS ABSOLUTE AUTO 0.06 K/mm3 (0.00-0.68); EOSINOPHILS PERCENT AUTO 0 % (0-6); IMMATURE GRAN ABSOLUTE AUTO 0.05 K/mm3 (0.00-0.10); IMMATURE GRAN PERCENT AUTO 0 % (0-1); LYMPHOCYTES ABSOLUTE AUTO 1.53 K/mm3 (0.84-5.20); LYMPHOCYTES PERCENT AUTO 8 % (21-46); MONOCYTES ABSOLUTE AUTO 0.92 K/mm3 (0.16-1.47); MONOCYTES PERCENT AUTO 5 % (4-13); Mean Corpuscular HGB 26.3 pg (26.0-34.0); Mean Corpuscular HGB Conc 29.7 g/dL (31.5-36.5); Mean Corpuscular Volume 89 fL (80-100); Mean Platelet Volume 11.8 fL (9.1-12.4); NEUTROPHILS ABSOLUTE AUTO 16.17 K/mm3 (1.96-9.15); NEUTROPHILS PERCENT AUTO 86 % (41-73); Platelet Count 298 K/mm3 (150-400); RDW Coefficient Variation 16.3 % (11.7-14.2); Red Blood Cell Count 4.18 M/mm3 (3.80-5.20); White Blood Cell Count 18.79 K/mm3 (4.00-11.30)
[2017-11-02] MEDS ORDERED: Micro-K10 MEQ PO (20:32)
[2017-11-02] MEDS ORDERED: STIOLTO RESPIMAT4 GM INH (20:33)
[2017-11-02] MEDS ORDERED: FURO20 PO (20:34)
[2017-11-02] MEDS ORDERED: MIRT15 PO (20:34)
[2017-11-02] MEDS ORDERED: ONDA4ODT MM (20:35)
[2017-11-02] MEDS ORDERED: OXYC5 PO (20:35)
[2017-11-02] MEDS ORDERED: ROPI1 PO (20:36)
[2017-11-02] MEDS ORDERED: ANTACID CALCIU215 MG PO (20:37)
[2017-11-02] MEDS ORDERED: PREG75 PO (20:37)
[2017-11-02] MEDS ORDERED: ACET500 PO (20:38)
[2017-11-02] MEDS ORDERED: Ipratr-Albuterol3 ML INH (20:39)
[2017-11-02] MEDS ORDERED: SERT100 PO (20:39)
[2017-11-02] MEDS ORDERED: PRED5 PO (20:40)
[2017-11-02] MEDS ORDERED: Omeprazole20 M1 PO (20:40)
[2017-11-02] MEDS ORDERED: BUSP5 PO (20:40)
[2017-11-02] MEDS ORDERED: LEVA.63IS INH (20:41)
[2017-11-02 20:43] LABS: Alanine Aminotransfer (ALT/SGP 15 U/L (12-78); Albumin, Blood 2.3 g/dL (3.4-5.0); Albumin/Globulin Ratio 0.5 (0.8-1.8); Alk Phos 100 U/L (50-136); Anion Gap 2 mmol/L (6-16); Aspartate Aminotrans (AST/SGOT 15 U/L (12-37); Bilirubin, Total 0.2 mg/dL (0.1-1.0); Blood Urea Nitrogen 13 mg/dL (8-24); Bun/Creatinine Ratio 15.9 (12.0-20.0); CO2, Blood 44 mmol/L (21-32); Chloride, Blood 95 mmol/L (98-108); Creatinine, Blood 0.82 mg/dL (0.40-1.00); Globulin, Blood 5.1 g/dL (2.2-4.0); Glomerular Filtration Rate >60 (60-); Glucose, Blood 105 mg/dL (70-99); Potassium, Blood 4.5 mmol/L (3.5-5.5); Sodium, Blood 141 mmol/L (136-145); Total Protein, Blood 7.4 g/dL (6.4-8.2)
[2017-11-02 20:53] LABS: PCO2 Arterial 104 mmHg (35-45); PO2 Arterial 108 mmHg (80-100); pH Blood Arterial 7.27 (7.35-7.45)
[2017-11-02 22:04] LABS: Magnesium, Blood 1.9 mg/dL (1.6-2.4); Phosphorus, Blood 2.7 mg/dL (2.5-4.9); Troponin I <0.015 ng/mL (0.000-0.040)
[2017-11-02 23:35] LABS: Source, Urine Catheter
[2017-11-02 23:44] LABS: Bilirubin, Urine Neg (Neg); Blood, Urine Neg (Neg); Glucose Qualitative, Urine Neg (Neg); Ketones, Urine Neg (Neg); Leukocyte Esterase, Urine Neg (Neg); Nitrite, Urine Neg (Neg); Protein, Urine 1+ (Neg); Urobilinogen, Urine NORM (Normal)
[2017-11-02 23:58] LABS: Appearance, Urine Hazy (Clear); Color, Urine Yellow (P-Yellow)
[2017-11-02 23:59] LABS: Amorphous Light (0-Heavy); Bacteria Rare /hpf; Mucus Mod (0-Heavy); Red Blood Cells, Urine 0-2 /hpf (0-2); Squamous Epithelial Cells Rare /hpf (Few); White Blood Cells, Urine 0-2 /hpf (0-5)
[2017-11-03] MEDS ORDERED: NIAC500 PO
[2017-11-03 02:21] LABS: PCO2 Arterial 76.2 mmHg (35-45); PO2 Arterial 56.2 mmHg (80-100); pH Blood Arterial 7.35 (7.35-7.45)
[2017-11-03 04:13] LABS: BASOPHILS ABSOLUTE AUTO 0.03 K/mm3 (0.00-0.23); BASOPHILS PERCENT AUTO 0 % (0-2); EOSINOPHILS PERCENT AUTO 0 % (0-6); Hematocrit 32.6 % (33.0-51.0); Hemoglobin 9.5 g/dL (11.5-16.0); IMMATURE GRAN ABSOLUTE AUTO 0.07 K/mm3 (0.00-0.10); IMMATURE GRAN PERCENT AUTO 1 % (0-1); LYMPHOCYTES ABSOLUTE AUTO 0.41 K/mm3 (0.84-5.20); LYMPHOCYTES PERCENT AUTO 3 % (21-46); MONOCYTES PERCENT AUTO 1 % (4-13); Mean Corpuscular HGB 26.4 pg (26.0-34.0); Mean Corpuscular HGB Conc 29.1 g/dL (31.5-36.5); Mean Corpuscular Volume 91 fL (80-100); Mean Platelet Volume 11.1 fL (9.1-12.4); NEUTROPHILS ABSOLUTE AUTO 14.92 K/mm3 (1.96-9.15); NEUTROPHILS PERCENT AUTO 96 % (41-73); Platelet Count 251 K/mm3 (150-400); RDW Coefficient Variation 16.2 % (11.7-14.2); RDW Standard Deviation 54.7 fL (35.1-46.3); White Blood Cell Count 15.53 K/mm3 (4.00-11.30)
[2017-11-03 04:32] LABS: Anion Gap 5 mmol/L (6-16); Blood Urea Nitrogen 16 mg/dL (8-24); Bun/Creatinine Ratio 19.3 (12.0-20.0); CO2, Blood 38 mmol/L (21-32); Chloride, Blood 98 mmol/L (98-108); Creatinine, Blood 0.83 mg/dL (0.40-1.00); Glomerular Filtration Rate >60 (60-); Glucose, Blood 131 mg/dL (70-99); Potassium, Blood 4.8 mmol/L (3.5-5.5); Sodium, Blood 141 mmol/L (136-145)
[2017-11-04 04:08] LABS: BASOPHILS ABSOLUTE AUTO 0.01 K/mm3 (0.00-0.23); BASOPHILS PERCENT AUTO 0 % (0-2); EOSINOPHILS PERCENT AUTO 0 % (0-6); Hematocrit 28.7 % (33.0-51.0); Hemoglobin 8.6 g/dL (11.5-16.0); IMMATURE GRAN ABSOLUTE AUTO 0.06 K/mm3 (0.00-0.10); IMMATURE GRAN PERCENT AUTO 1 % (0-1); LYMPHOCYTES ABSOLUTE AUTO 0.47 K/mm3 (0.84-5.20); LYMPHOCYTES PERCENT AUTO 5 % (21-46); MONOCYTES PERCENT AUTO 1 % (4-13); Mean Corpuscular HGB 26.4 pg (26.0-34.0); Mean Platelet Volume 11.4 fL (9.1-12.4); NEUTROPHILS ABSOLUTE AUTO 9.43 K/mm3 (1.96-9.15); NEUTROPHILS PERCENT AUTO 94 % (41-73); Platelet Count 252 K/mm3 (150-400); RDW Coefficient Variation 16.5 % (11.7-14.2); RDW Standard Deviation 53.4 fL (35.1-46.3); Red Blood Cell Count 3.26 M/mm3 (3.80-5.20); White Blood Cell Count 10.07 K/mm3 (4.00-11.30)
[2017-11-04 04:09] LABS: Mean Corpuscular Volume 88 fL (80-100)
[2017-11-04 04:23] LABS: Anion Gap 6 mmol/L (6-16); Blood Urea Nitrogen 18 mg/dL (8-24); Bun/Creatinine Ratio 29.4 (12.0-20.0); CO2, Blood 32 mmol/L (21-32); Calcium, Blood 6.6 mg/dL (8.5-10.1); Chloride, Blood 104 mmol/L (98-108); Creatinine, Blood 0.61 mg/dL (0.40-1.00); Glomerular Filtration Rate >60 (60-); Glucose, Blood 136 mg/dL (70-99); Potassium, Blood 3.7 mmol/L (3.5-5.5); Sodium, Blood 142 mmol/L (136-145)
[2017-11-04 10:45] LABS: Creatinine, Blood 0.64 mg/dL (0.40-1.00); Vancomycin, Trough 22.3 ug/mL (5.0-10.0)
[2017-11-05 05:15] LABS: Anion Gap 7 mmol/L (6-16); Blood Urea Nitrogen 18 mg/dL (8-24); Bun/Creatinine Ratio 31.5 (12.0-20.0); CO2, Blood 28 mmol/L (21-32); Calcium, Blood 6.7 mg/dL (8.5-10.1); Chloride, Blood 110 mmol/L (98-108); Creatinine, Blood 0.57 mg/dL (0.40-1.00); Glomerular Filtration Rate >60 (60-); Glucose, Blood 115 mg/dL (70-99); Potassium, Blood 4.6 mmol/L (3.5-5.5); Sodium, Blood 145 mmol/L (136-145)
[2017-11-05 05:34] LABS: BASOPHILS ABSOLUTE AUTO 0.01 K/mm3 (0.00-0.23); BASOPHILS PERCENT AUTO 0 % (0-2); EOSINOPHILS PERCENT AUTO 0 % (0-6); IMMATURE GRAN ABSOLUTE AUTO 0.03 K/mm3 (0.00-0.10); IMMATURE GRAN PERCENT AUTO 0 % (0-1); LYMPHOCYTES ABSOLUTE AUTO 0.47 K/mm3 (0.84-5.20); LYMPHOCYTES PERCENT AUTO 6 % (21-46); MONOCYTES ABSOLUTE AUTO 0.11 K/mm3 (0.16-1.47); MONOCYTES PERCENT AUTO 1 % (4-13); Mean Corpuscular HGB 26.7 pg (26.0-34.0); Mean Corpuscular Volume 86 fL (80-100); Mean Platelet Volume 11.2 fL (9.1-12.4); NEUTROPHILS ABSOLUTE AUTO 7.79 K/mm3 (1.96-9.15); NEUTROPHILS PERCENT AUTO 93 % (41-73); Platelet Count 261 K/mm3 (150-400); RDW Coefficient Variation 17.2 % (11.7-14.2); RDW Standard Deviation 54.4 fL (35.1-46.3); Red Blood Cell Count 3.37 M/mm3 (3.80-5.20); White Blood Cell Count 8.41 K/mm3 (4.00-11.30)
[2017-11-05 07:36] LABS: PCO2 Arterial 45.7 mmHg (35-45); PO2 Arterial 89.6 mmHg (80-100); pH Blood Arterial 7.41 (7.35-7.45)
[2017-11-06 00:57] LABS: BASOPHILS PERCENT AUTO 0 % (0-2); EOSINOPHILS PERCENT AUTO 0 % (0-6); Hematocrit 30.6 % (33.0-51.0); Hemoglobin 9.4 g/dL (11.5-16.0); IMMATURE GRAN ABSOLUTE AUTO 0.03 K/mm3 (0.00-0.10); IMMATURE GRAN PERCENT AUTO 0 % (0-1); LYMPHOCYTES ABSOLUTE AUTO 0.55 K/mm3 (0.84-5.20); LYMPHOCYTES PERCENT AUTO 5 % (21-46); MONOCYTES ABSOLUTE AUTO 0.32 K/mm3 (0.16-1.47); MONOCYTES PERCENT AUTO 3 % (4-13); Mean Corpuscular HGB 26.3 pg (26.0-34.0); Mean Corpuscular HGB Conc 30.7 g/dL (31.5-36.5); Mean Corpuscular Volume 86 fL (80-100); Mean Platelet Volume 11.2 fL (9.1-12.4); NEUTROPHILS ABSOLUTE AUTO 9.43 K/mm3 (1.96-9.15); NEUTROPHILS PERCENT AUTO 91 % (41-73); Platelet Count 290 K/mm3 (150-400); RDW Coefficient Variation 17.5 % (11.7-14.2); RDW Standard Deviation 54.4 fL (35.1-46.3); Red Blood Cell Count 3.57 M/mm3 (3.80-5.20); White Blood Cell Count 10.33 K/mm3 (4.00-11.30)
[2017-11-06 01:13] LABS: Anion Gap 6 mmol/L (6-16); Blood Urea Nitrogen 22 mg/dL (8-24); Bun/Creatinine Ratio 38.1 (12.0-20.0); CO2, Blood 29 mmol/L (21-32); Calcium, Blood 6.8 mg/dL (8.5-10.1); Chloride, Blood 112 mmol/L (98-108); Creatinine, Blood 0.58 mg/dL (0.40-1.00); Glomerular Filtration Rate >60 (60-); Glucose, Blood 114 mg/dL (70-99); Potassium, Blood 3.6 mmol/L (3.5-5.5); Sodium, Blood 147 mmol/L (136-145)
[2017-11-06 01:15] LABS: Vancomycin, Trough 13.6 ug/mL (5.0-10.0)
[2017-11-08 05:55] LABS: Anion Gap 4 mmol/L (6-16); Blood Urea Nitrogen 18 mg/dL (8-24); Bun/Creatinine Ratio 27.4 (12.0-20.0); CO2, Blood 30 mmol/L (21-32); Chloride, Blood 111 mmol/L (98-108); Creatinine, Blood 0.66 mg/dL (0.40-1.00); Glomerular Filtration Rate >60 (60-); Glucose, Blood 94 mg/dL (70-99); Potassium, Blood 4.2 mmol/L (3.5-5.5); Sodium, Blood 145 mmol/L (136-145)
[2017-11-08] MEDS ORDERED: GUAI600T33 PO (13:22)
[2017-11-08] MEDS ORDERED: AZTREONAM2 GM IV (13:24)
[2017-11-08] MEDS ORDERED: TOBRAMYCIN300 MG/5 M INH (13:26)
== END 2017-11-08 14:00 | disposition home or self-care (01) | DRG 870 ==
LOC: ER 19:50 → ICUE 21:54 → PCU 21:54 → ICUW 21:54 → ICUE 22:50 → PCU 11-04 14:59
PROVIDERS: Emergency Medicine; Internal Medicine; Internal Medicine Critical Care Medicine; Nurse Practitioner Acute Care
PROC: 5A1955Z Respiratory Ventilation, Greater than 96 Consecutive Hours (ICD-10-PCS; principal; 2017-11-02)
DX: A41.52 Sepsis due to Pseudomonas (principal); J18.9 Pneumonia, unspecified organism; J96.21 Acute and chronic respiratory failure with hypoxia; J96.22 Acute and chronic respiratory failure with hypercapnia; Z99.11 Dependence on respirator [ventilator] status; J44.1 Chronic obstructive pulmonary disease with (acute) exacerbation; J44.0 Chronic obstructive pulmonary disease with (acute) lower respiratory infection; E87.0 Hyperosmolality and hypernatremia; Z51.5 Encounter for palliative care; Z87.891 Personal history of nicotine dependence; Z93.0 Tracheostomy status; Z99.81 Dependence on supplemental oxygen; G89.4 Chronic pain syndrome; G25.81 Restless legs syndrome; I10 Essential (primary) hypertension; Y95 Nosocomial condition; M81.0 Age-related osteoporosis without current pathological fracture; D63.8 Anemia in other chronic diseases classified elsewhere; F41.8 Other specified anxiety disorders; I95.9 Hypotension, unspecified; Z16.24 Resistance to multiple antibiotics
CPT/HCPCS: 31502; 31720; 36415; 36600; 51702; 71045; 71046; 80048; 80053; 80202; 81001; 82565; 82803; 83605; 83735; 84100; 84484; 85025; 87040; 87070; 87077; 87086; 87186; 87205; 93005; 93010; 94002; 94003; 94640; 94664; 94760; 94762; 96374; 96375; 98960; 99285-25; J0696; J1642; J1650; J2185; J2405; J2543; J2920; J2930; J3010; J3370; J7030

== ENCOUNTER 2017-12-21 00:49 | Day surgery (SDC) | payer OTHER ==
[~2017-12-21 00:49] MED LIST changes: +ANTACID CALCIU215 MG PO; +AZTREONAM2 GM IV; +Micro-K10 MEQ PO; +NIAC500 PO; +ONDA4ODT MM; +Omeprazole20 M1 PO; +PREG75 PO; +ROPI1 PO; +STIOLTO RESPIMAT4 GM INH; +TOBRAMYCIN300 MG/5 M INH
== END 2017-12-21 14:43 | disposition home or self-care (01) ==
LOC: ATC 00:49
DX: Z45.2 Encounter for adjustment and management of vascular access device (principal); J96.92 Respiratory failure, unspecified with hypercapnia; Z93.0 Tracheostomy status; Z87.891 Personal history of nicotine dependence
CPT/HCPCS: 96523; J1642

== ENCOUNTER 2018-01-11 10:02 | Day surgery (SDC) | payer OTHER ==
[~2018-01-11] VITALS: Ht 165.1 cm; Wt 59.0 kg
== END 2018-01-11 22:44 | disposition home or self-care (01) ==
LOC: ORSCMMR 10:02 → ORSCSDS 12:00 → ORSCMMR 22:44
PROVIDERS: Internal Medicine Gastroenterology
PROC: 0DBL8ZX Excision of Transverse Colon, Via Natural or Artificial Opening Endoscopic, Diagnostic (ICD-10-PCS; principal; 2018-01-11 11:15)
PROC: 0DBN8ZX Excision of Sigmoid Colon, Via Natural or Artificial Opening Endoscopic, Diagnostic (ICD-10-PCS; principal; 2018-01-11 11:15)
PROC: 0DBK8ZX Excision of Ascending Colon, Via Natural or Artificial Opening Endoscopic, Diagnostic (ICD-10-PCS; principal; 2018-01-11 11:15)
DX: R10.84 Generalized abdominal pain (principal); D12.2 Benign neoplasm of ascending colon; D12.3 Benign neoplasm of transverse colon; K63.5 Polyp of colon; K64.1 Second degree hemorrhoids; J44.9 Chronic obstructive pulmonary disease, unspecified; I10 Essential (primary) hypertension; K21.9 Gastro-esophageal reflux disease without esophagitis; Z99.81 Dependence on supplemental oxygen; Z79.899 Other long term (current) drug therapy
CPT/HCPCS: 87081; 88305; J7120

== ENCOUNTER 2018-01-13 14:33 | Inpatient (IN) | payer OTHER ==
[~2018-01-13] VITALS: Ht 165.1 cm; Wt 64.5 kg
[2018-01-13 16:26] LABS: BASOPHILS ABSOLUTE AUTO 0.04 K/mm3 (0.00-0.23); BASOPHILS PERCENT AUTO 0 % (0-2); EOSINOPHILS ABSOLUTE AUTO 0.12 K/mm3 (0.00-0.68); EOSINOPHILS PERCENT AUTO 1 % (0-6); Hematocrit 36.3 % (33.0-51.0); Hemoglobin 10.5 g/dL (11.5-16.0); IMMATURE GRAN ABSOLUTE AUTO 0.03 K/mm3 (0.00-0.10); IMMATURE GRAN PERCENT AUTO 0 % (0-1); LYMPHOCYTES ABSOLUTE AUTO 0.35 K/mm3 (0.84-5.20); LYMPHOCYTES PERCENT AUTO 3 % (21-46); MONOCYTES ABSOLUTE AUTO 0.28 K/mm3 (0.16-1.47); MONOCYTES PERCENT AUTO 2 % (4-13); Mean Corpuscular HGB Conc 28.9 g/dL (31.5-36.5); Mean Platelet Volume 10.7 fL (9.1-12.4); NEUTROPHILS ABSOLUTE AUTO 11.21 K/mm3 (1.96-9.15); NEUTROPHILS PERCENT AUTO 93 % (41-73); Platelet Count 184 K/mm3 (150-400); RDW Coefficient Variation 15.3 % (11.7-14.2); RDW Standard Deviation 54.9 fL (35.1-46.3); Red Blood Cell Count 3.75 M/mm3 (3.80-5.20); White Blood Cell Count 12.03 K/mm3 (4.00-11.30)
[2018-01-13 16:29] LABS: Base Excess Venous 10.3 mmol/L; Bicarbonate Venous 31.6 mmol/L (24.0-30.0); PCO2 Venous 83.7 mmHg (38-42); PO2 Venous 70.6 mmHg (38-42); pH Blood Venous 7.26 (7.34-7.37)
[2018-01-13 16:30] LABS: Alanine Aminotransfer (ALT/SGP 18 U/L (12-78); Albumin, Blood 2.7 g/dL (3.4-5.0); Albumin/Globulin Ratio 0.7 (0.8-1.8); Alk Phos 79 U/L (50-136); Anion Gap 2 mmol/L (6-16); Aspartate Aminotrans (AST/SGOT 12 U/L (12-37); Bilirubin, Total 0.2 mg/dL (0.1-1.0); Blood Urea Nitrogen 9 mg/dL (8-24); Bun/Creatinine Ratio 10.6 (12.0-20.0); CO2, Blood 38 mmol/L (21-32); Calcium, Blood 8.4 mg/dL (8.5-10.1); Chloride, Blood 105 mmol/L (98-108); Creatinine, Blood 0.85 mg/dL (0.40-1.00); Globulin, Blood 4.1 g/dL (2.2-4.0); Glomerular Filtration Rate >60 (60-); Glucose, Blood 136 mg/dL (70-99); Potassium, Blood 4.2 mmol/L (3.5-5.5); Sodium, Blood 145 mmol/L (136-145); Total Protein, Blood 6.8 g/dL (6.4-8.2)
[2018-01-13 16:34] LABS: Mean Corpuscular Volume 97 fL (80-100)
[2018-01-14 05:58] LABS: BASOPHILS ABSOLUTE AUTO 0.03 K/mm3 (0.00-0.23); BASOPHILS PERCENT AUTO 0 % (0-2); EOSINOPHILS ABSOLUTE AUTO 0.28 K/mm3 (0.00-0.68); EOSINOPHILS PERCENT AUTO 2 % (0-6); Hematocrit 37.9 % (33.0-51.0); IMMATURE GRAN ABSOLUTE AUTO 0.07 K/mm3 (0.00-0.10); IMMATURE GRAN PERCENT AUTO 1 % (0-1); LYMPHOCYTES ABSOLUTE AUTO 1.11 K/mm3 (0.84-5.20); LYMPHOCYTES PERCENT AUTO 9 % (21-46); MONOCYTES ABSOLUTE AUTO 0.82 K/mm3 (0.16-1.47); MONOCYTES PERCENT AUTO 7 % (4-13); Mean Corpuscular HGB 27.5 pg (26.0-34.0); Mean Corpuscular Volume 95 fL (80-100); Mean Platelet Volume 10.7 fL (9.1-12.4); NEUTROPHILS ABSOLUTE AUTO 9.94 K/mm3 (1.96-9.15); NEUTROPHILS PERCENT AUTO 81 % (41-73); Platelet Count 165 K/mm3 (150-400); RDW Coefficient Variation 15.1 % (11.7-14.2); White Blood Cell Count 12.25 K/mm3 (4.00-11.30)
[2018-01-14 06:13] LABS: Anion Gap 4 mmol/L (6-16); Blood Urea Nitrogen 9 mg/dL (8-24); Bun/Creatinine Ratio 12.3 (12.0-20.0); CO2, Blood 32 mmol/L (21-32); Chloride, Blood 107 mmol/L (98-108); Creatinine, Blood 0.73 mg/dL (0.40-1.00); Glomerular Filtration Rate >60 (60-); Glucose, Blood 80 mg/dL (70-99); Potassium, Blood 3.7 mmol/L (3.5-5.5); Sodium, Blood 143 mmol/L (136-145)
[2018-01-14 10:30] LABS: Vancomycin, Trough 10.2 ug/mL (5.0-10.0)
[2018-01-16 05:09] LABS: BASOPHILS ABSOLUTE AUTO 0.04 K/mm3 (0.00-0.23); BASOPHILS PERCENT AUTO 1 % (0-2); EOSINOPHILS ABSOLUTE AUTO 0.25 K/mm3 (0.00-0.68); EOSINOPHILS PERCENT AUTO 3 % (0-6); Hematocrit 31.3 % (33.0-51.0); Hemoglobin 9.4 g/dL (11.5-16.0); IMMATURE GRAN ABSOLUTE AUTO 0.02 K/mm3 (0.00-0.10); IMMATURE GRAN PERCENT AUTO 0 % (0-1); LYMPHOCYTES ABSOLUTE AUTO 1.09 K/mm3 (0.84-5.20); LYMPHOCYTES PERCENT AUTO 14 % (21-46); MONOCYTES ABSOLUTE AUTO 0.47 K/mm3 (0.16-1.47); MONOCYTES PERCENT AUTO 6 % (4-13); Mean Corpuscular HGB 27.8 pg (26.0-34.0); Mean Corpuscular Volume 93 fL (80-100); Mean Platelet Volume 10.9 fL (9.1-12.4); NEUTROPHILS ABSOLUTE AUTO 5.71 K/mm3 (1.96-9.15); NEUTROPHILS PERCENT AUTO 75 % (41-73); Platelet Count 171 K/mm3 (150-400); RDW Coefficient Variation 15.2 % (11.7-14.2); RDW Standard Deviation 51.5 fL (35.1-46.3); Red Blood Cell Count 3.38 M/mm3 (3.80-5.20); White Blood Cell Count 7.58 K/mm3 (4.00-11.30)
[2018-01-16 05:24] LABS: Vancomycin, Trough 19.4 ug/mL (5.0-10.0)
[2018-01-16 05:27] LABS: Albumin, Blood 2.2 g/dL (3.4-5.0); Anion Gap 6 mmol/L (6-16); Blood Urea Nitrogen 8 mg/dL (8-24); Bun/Creatinine Ratio 11.3 (12.0-20.0); CO2, Blood 35 mmol/L (21-32); Calcium, Blood 7.6 mg/dL (8.5-10.1); Chloride, Blood 106 mmol/L (98-108); Creatinine, Blood 0.71 mg/dL (0.40-1.00); Glomerular Filtration Rate >60 (60-); Glucose, Blood 81 mg/dL (70-99); Phosphorus, Blood 1.1 mg/dL (2.5-4.9); Potassium, Blood 3.1 mmol/L (3.5-5.5); Sodium, Blood 147 mmol/L (136-145)
[2018-01-17 04:53] LABS: BASOPHILS ABSOLUTE AUTO 0.02 K/mm3 (0.00-0.23); BASOPHILS PERCENT AUTO 0 % (0-2); EOSINOPHILS ABSOLUTE AUTO 0.27 K/mm3 (0.00-0.68); EOSINOPHILS PERCENT AUTO 5 % (0-6); Hematocrit 30.8 % (33.0-51.0); Hemoglobin 9.1 g/dL (11.5-16.0); IMMATURE GRAN ABSOLUTE AUTO 0.01 K/mm3 (0.00-0.10); IMMATURE GRAN PERCENT AUTO 0 % (0-1); LYMPHOCYTES ABSOLUTE AUTO 1.07 K/mm3 (0.84-5.20); LYMPHOCYTES PERCENT AUTO 21 % (21-46); MONOCYTES ABSOLUTE AUTO 0.35 K/mm3 (0.16-1.47); MONOCYTES PERCENT AUTO 7 % (4-13); Mean Corpuscular HGB 27.6 pg (26.0-34.0); Mean Corpuscular HGB Conc 29.5 g/dL (31.5-36.5); Mean Corpuscular Volume 93 fL (80-100); Mean Platelet Volume 11.1 fL (9.1-12.4); NEUTROPHILS ABSOLUTE AUTO 3.49 K/mm3 (1.96-9.15); NEUTROPHILS PERCENT AUTO 67 % (41-73); Platelet Count 176 K/mm3 (150-400); RDW Coefficient Variation 15.3 % (11.7-14.2); RDW Standard Deviation 52.8 fL (35.1-46.3); White Blood Cell Count 5.21 K/mm3 (4.00-11.30)
[2018-01-17 05:21] LABS: Anion Gap 4 mmol/L (6-16); Blood Urea Nitrogen 8 mg/dL (8-24); Bun/Creatinine Ratio 10.7 (12.0-20.0); CO2, Blood 37 mmol/L (21-32); Calcium, Blood 7.3 mg/dL (8.5-10.1); Chloride, Blood 106 mmol/L (98-108); Creatinine, Blood 0.75 mg/dL (0.40-1.00); Glomerular Filtration Rate >60 (60-); Glucose, Blood 137 mg/dL (70-99); Potassium, Blood 3.1 mmol/L (3.5-5.5); Sodium, Blood 147 mmol/L (136-145)
[2018-01-18 05:19] LABS: BASOPHILS ABSOLUTE AUTO 0.02 K/mm3 (0.00-0.23); BASOPHILS PERCENT AUTO 0 % (0-2); EOSINOPHILS ABSOLUTE AUTO 0.14 K/mm3 (0.00-0.68); EOSINOPHILS PERCENT AUTO 2 % (0-6); Hematocrit 29.4 % (33.0-51.0); Hemoglobin 8.8 g/dL (11.5-16.0); IMMATURE GRAN ABSOLUTE AUTO 0.02 K/mm3 (0.00-0.10); IMMATURE GRAN PERCENT AUTO 0 % (0-1); LYMPHOCYTES ABSOLUTE AUTO 1.25 K/mm3 (0.84-5.20); LYMPHOCYTES PERCENT AUTO 18 % (21-46); MONOCYTES ABSOLUTE AUTO 0.48 K/mm3 (0.16-1.47); MONOCYTES PERCENT AUTO 7 % (4-13); Mean Corpuscular HGB 27.7 pg (26.0-34.0); Mean Corpuscular HGB Conc 29.9 g/dL (31.5-36.5); Mean Corpuscular Volume 93 fL (80-100); Mean Platelet Volume 10.8 fL (9.1-12.4); NEUTROPHILS ABSOLUTE AUTO 4.91 K/mm3 (1.96-9.15); NEUTROPHILS PERCENT AUTO 72 % (41-73); Platelet Count 209 K/mm3 (150-400); RDW Coefficient Variation 15.3 % (11.7-14.2); RDW Standard Deviation 52.2 fL (35.1-46.3); Red Blood Cell Count 3.18 M/mm3 (3.80-5.20); White Blood Cell Count 6.82 K/mm3 (4.00-11.30)
[2018-01-18 05:54] LABS: Anion Gap 4 mmol/L (6-16); Blood Urea Nitrogen 12 mg/dL (8-24); Bun/Creatinine Ratio 15.2 (12.0-20.0); CO2, Blood 37 mmol/L (21-32); Calcium, Blood 7.6 mg/dL (8.5-10.1); Chloride, Blood 103 mmol/L (98-108); Creatinine, Blood 0.79 mg/dL (0.40-1.00); Glomerular Filtration Rate >60 (60-); Glucose, Blood 105 mg/dL (70-99); Potassium, Blood 3.9 mmol/L (3.5-5.5); Sodium, Blood 144 mmol/L (136-145)
[2018-01-18] MEDS ORDERED: Culturelle1 CAP PO (12:26)
[2018-01-18] MEDS ORDERED: VANCOMYCIN750 MG/250 IV (12:28)
[2018-01-18] MEDS ORDERED: Bactrim Ds Tab1 EACH PO (12:32)
== END 2018-01-18 16:07 | disposition home or self-care (01) | DRG 207 ==
LOC: ER 14:33 → PCU 16:19
PROVIDERS: Emergency Medicine; Internal Medicine; Surgery
PROC: 0HBAXZZ Excision of Inguinal Skin, External Approach (ICD-10-PCS; 2018-01-17)
PROC: 5A1955Z Respiratory Ventilation, Greater than 96 Consecutive Hours (ICD-10-PCS; principal; 2018-01-17 12:45)
DX: J15.212 Pneumonia due to Methicillin resistant Staphylococcus aureus (principal); J96.21 Acute and chronic respiratory failure with hypoxia; L03.314 Cellulitis of groin; Z99.11 Dependence on respirator [ventilator] status; J44.0 Chronic obstructive pulmonary disease with (acute) lower respiratory infection; L02.219 Cutaneous abscess of trunk, unspecified; Z86.711 Personal history of pulmonary embolism; Z87.891 Personal history of nicotine dependence; M81.0 Age-related osteoporosis without current pathological fracture; J32.9 Chronic sinusitis, unspecified; K59.00 Constipation, unspecified; L73.9 Follicular disorder, unspecified; E87.6 Hypokalemia; D63.8 Anemia in other chronic diseases classified elsewhere; Z85.41 Personal history of malignant neoplasm of cervix uteri; R26.89 Other abnormalities of gait and mobility; Z16.24 Resistance to multiple antibiotics
CPT/HCPCS: 31720; 36415; 71045; 71046; 80048; 80053; 80069; 80202; 82803; 83605; 85025; 87040; 87070; 87075; 87077; 87147; 87186; 87205; 93005; 93010; 94640; 94762; 96361; 96374; 96375; 99284-25; C1751; J0690; J1100; J1170; J1650; J2185; J2250; J2370; J2405; J2765; J3010; J3370; J7030; J7060; J7120

== ENCOUNTER 2018-01-20 00:16 | Day surgery (SDC) | payer OTHER ==
[~2018-01-20 00:16] MED LIST changes: +Bactrim Ds Tab1 EACH PO; +Culturelle1 CAP PO
== END 2018-01-20 22:51 | disposition home or self-care (01) ==
LOC: ATC 00:16
DX: Z45.2 Encounter for adjustment and management of vascular access device (principal); Z93.0 Tracheostomy status; J43.9 Emphysema, unspecified; J96.92 Respiratory failure, unspecified with hypercapnia

== ENCOUNTER 2018-04-10 18:19 | Inpatient (IN) | payer OTHER ==
[~2018-04-10] VITALS: Ht 165.1 cm; Wt 65.0 kg
[~2018-04-10 18:19] MED LIST changes: +IRON150C PO; +PANT40 PO; +TRAZ150T57; +Vitamin C100 M1 PO; +Zanaflex2 M1 PO
[2018-04-10 19:00] LABS: BASOPHILS ABSOLUTE AUTO 0.04 K/mm3 (0.00-0.23); BASOPHILS PERCENT AUTO 0 % (0-2); EOSINOPHILS ABSOLUTE AUTO 0.04 K/mm3 (0.00-0.68); EOSINOPHILS PERCENT AUTO 0 % (0-6); Hemoglobin 11.9 g/dL (11.5-16.0); IMMATURE GRAN ABSOLUTE AUTO 0.09 K/mm3 (0.00-0.10); IMMATURE GRAN PERCENT AUTO 1 % (0-1); LYMPHOCYTES ABSOLUTE AUTO 0.44 K/mm3 (0.84-5.20); LYMPHOCYTES PERCENT AUTO 2 % (21-46); MONOCYTES ABSOLUTE AUTO 0.44 K/mm3 (0.16-1.47); MONOCYTES PERCENT AUTO 2 % (4-13); Mean Corpuscular HGB 28.1 pg (26.0-34.0); Mean Corpuscular Volume 97 fL (80-100); Mean Platelet Volume 11.5 fL (9.1-12.4); NEUTROPHILS ABSOLUTE AUTO 17.33 K/mm3 (1.96-9.15); NEUTROPHILS PERCENT AUTO 94 % (41-73); Platelet Count 222 K/mm3 (150-400); RDW Coefficient Variation 15.4 % (11.7-14.2); RDW Standard Deviation 55.2 fL (35.1-46.3); Red Blood Cell Count 4.24 M/mm3 (3.80-5.20); White Blood Cell Count 18.38 K/mm3 (4.00-11.30)
[2018-04-10 19:13] LABS: Alanine Aminotransfer (ALT/SGP 14 U/L (12-78); Albumin, Blood 2.5 g/dL (3.4-5.0); Albumin/Globulin Ratio 0.5 (0.8-1.8); Alk Phos 85 U/L (50-136); Anion Gap 5 mmol/L (6-16); Aspartate Aminotrans (AST/SGOT 12 U/L (12-37); Bilirubin, Total 0.2 mg/dL (0.1-1.0); Blood Urea Nitrogen 25 mg/dL (8-24); Bun/Creatinine Ratio 28.2 (12.0-20.0); CO2, Blood 36 mmol/L (21-32); Calcium, Blood 8.9 mg/dL (8.5-10.1); Chloride, Blood 98 mmol/L (98-108); Creatinine, Blood 0.89 mg/dL (0.40-1.00); Globulin, Blood 4.7 g/dL (2.2-4.0); Glomerular Filtration Rate >60 (60-); Glucose, Blood 203 mg/dL (70-99); Potassium, Blood 4.1 mmol/L (3.5-5.5); Sodium, Blood 139 mmol/L (136-145); Total Protein, Blood 7.2 g/dL (6.4-8.2)
[2018-04-10] MEDS ORDERED: ONDA4ODT MM (19:33)
[2018-04-10] MEDS ORDERED: PREG75 PO (19:33)
[2018-04-10] MEDS ORDERED: MIRT15 PO (19:34)
[2018-04-10] MEDS ORDERED: ANTACID CALCIU215 MG PO (19:34)
[2018-04-10] MEDS ORDERED: BUSP5 PO (19:35)
[2018-04-10] MEDS ORDERED: ROPI.25 PO (19:35)
[2018-04-10] MEDS ORDERED: SERT100 PO (19:35)
[2018-04-10] MEDS ORDERED: Omeprazole20 M1 PO (19:35)
[2018-04-10] MEDS ORDERED: Mucus Relief400 MG PO (19:36)
[2018-04-10] MEDS ORDERED: ASCO500 PO (19:36)
[2018-04-10] MEDS ORDERED: PRED10 PO (19:36)
[2018-04-10] MEDS ORDERED: CENTRUM SILVER1 EAC2 PO (19:37)
[2018-04-10] MEDS ORDERED: Iron Chews15 MG PO (19:38)
[2018-04-10] MEDS ORDERED: OXYC5 PO (19:38)
[2018-04-10] MEDS ORDERED: NIACINAMIDE500 MG PO (19:38)
[2018-04-10] MEDS ORDERED: Zanaflex2 M1 PO (19:39)
[2018-04-10] MEDS ORDERED: PANT40 PO (19:39)
[2018-04-10] MEDS ORDERED: TRAZ150T57 PO (19:39)
[2018-04-10] MEDS ORDERED: Ipratropium Bro30 ML UD (19:40)
[2018-04-10] MEDS ORDERED: LEVA.63IS INH (19:40)
[2018-04-10] MEDS ORDERED: Culturelle1 CAP PO (19:40)
[2018-04-10] MEDS ORDERED: ALBU90OI61 INH (19:41)
[2018-04-10] MEDS ORDERED: STIOLTO RESPIMAT4 GM UD (19:41)
[2018-04-10] MEDS ORDERED: FURO40 PO (19:42)
[2018-04-10] MEDS ORDERED: POTCHL10ER PO (19:42)
[2018-04-10 20:21] LABS: Base Excess Venous 13.6 mmol/L; Bicarbonate Venous 35.3 mmol/L (24.0-30.0); PCO2 Venous 53.4 mmHg (38-42); PO2 Venous 46.4 mmHg (38-42); pH Blood Venous 7.46 (7.34-7.37)
[2018-04-11 03:55] LABS: Hematocrit 33.5 % (33.0-51.0); Hemoglobin 9.9 g/dL (11.5-16.0); Mean Corpuscular HGB 27.3 pg (26.0-34.0); Mean Corpuscular HGB Conc 29.6 g/dL (31.5-36.5); Mean Platelet Volume 11.7 fL (9.1-12.4); Platelet Count 210 K/mm3 (150-400); RDW Coefficient Variation 15.7 % (11.7-14.2); RDW Standard Deviation 53.2 fL (35.1-46.3); Red Blood Cell Count 3.62 M/mm3 (3.80-5.20); White Blood Cell Count 17.44 K/mm3 (4.00-11.30)
[2018-04-11 03:56] LABS: Mean Corpuscular Volume 93 fL (80-100)
[2018-04-11 04:14] LABS: Alanine Aminotransfer (ALT/SGP 13 U/L (12-78); Albumin/Globulin Ratio 0.5 (0.8-1.8); Alk Phos 73 U/L (50-136); Anion Gap 5 mmol/L (6-16); Aspartate Aminotrans (AST/SGOT 6 U/L (12-37); Bilirubin, Total 0.5 mg/dL (0.1-1.0); Blood Urea Nitrogen 30 mg/dL (8-24); Bun/Creatinine Ratio 32.2 (12.0-20.0); CO2, Blood 32 mmol/L (21-32); Calcium, Blood 7.9 mg/dL (8.5-10.1); Chloride, Blood 102 mmol/L (98-108); Creatinine, Blood 0.93 mg/dL (0.40-1.00); Globulin, Blood 4.3 g/dL (2.2-4.0); Glomerular Filtration Rate >60 (60-); Glucose, Blood 154 mg/dL (70-99); Potassium, Blood 4.3 mmol/L (3.5-5.5); Sodium, Blood 139 mmol/L (136-145); Total Protein, Blood 6.3 g/dL (6.4-8.2)
[2018-04-11 08:07] LABS: Adenovirus Not Detected (NOT DETECT); Bordetella pertussis Not Detected (NOT DETECT); Chlamydophila pneumoniae Not Detected (NOT DETECT); Coronavirus 229E Not Detected (NOT DETECT); Coronavirus HKU1 Not Detected (NOT DETECT); Coronavirus NL63 Not Detected (NOT DETECT); Coronavirus OC43 Not Detected (NOT DETECT); Human Metapneumovirus Not Detected (NOT DETECT); Human Rhinovirus/Enterovirus Not Detected (NOT DETECT); Influenza A/2009-H1 Not Detected (NOT DETECT); Influenza A/H1 Not Detected (NOT DETECT); Influenza A/H3 Not Detected (NOT DETECT); Influenza B Not Detected (NOT DETECT); Mycoplasma pneumoniae Not Detected (NOT DETECT); Parainfluenza Virus 1 Not Detected (NOT DETECT); Parainfluenza Virus 2 Not Detected (NOT DETECT); Parainfluenza Virus 3 Not Detected (NOT DETECT); Parainfluenza Virus 4 Not Detected (NOT DETECT); Respiratory Syncytial Virus Not Detected (NOT DETECT)
[2018-04-11 08:24] LABS: pH Blood Arterial 7.31 (7.35-7.45)
[2018-04-11 08:25] LABS: PCO2 Arterial 73.7 mmHg (35-45)
[2018-04-11 09:30] LABS: Influenza A Not Detected (NOT DETECT)
[2018-04-11 16:33] LABS: Tobramycin, Random 3.4 ug/mL
[2018-04-12 03:21] LABS: BASOPHILS ABSOLUTE AUTO 0.02 K/mm3 (0.00-0.23); BASOPHILS PERCENT AUTO 0 % (0-2); EOSINOPHILS ABSOLUTE AUTO 0.06 K/mm3 (0.00-0.68); EOSINOPHILS PERCENT AUTO 1 % (0-6); Hematocrit 30.5 % (33.0-51.0); Hemoglobin 8.9 g/dL (11.5-16.0); IMMATURE GRAN ABSOLUTE AUTO 0.06 K/mm3 (0.00-0.10); IMMATURE GRAN PERCENT AUTO 1 % (0-1); LYMPHOCYTES ABSOLUTE AUTO 0.97 K/mm3 (0.84-5.20); LYMPHOCYTES PERCENT AUTO 9 % (21-46); MONOCYTES PERCENT AUTO 4 % (4-13); Mean Corpuscular HGB 27.6 pg (26.0-34.0); Mean Corpuscular HGB Conc 29.2 g/dL (31.5-36.5); Mean Corpuscular Volume 94 fL (80-100); Mean Platelet Volume 11.5 fL (9.1-12.4); NEUTROPHILS ABSOLUTE AUTO 9.05 K/mm3 (1.96-9.15); NEUTROPHILS PERCENT AUTO 86 % (41-73); Platelet Count 198 K/mm3 (150-400); RDW Coefficient Variation 16.1 % (11.7-14.2); RDW Standard Deviation 56.4 fL (35.1-46.3); Red Blood Cell Count 3.23 M/mm3 (3.80-5.20); White Blood Cell Count 10.56 K/mm3 (4.00-11.30)
[2018-04-12 03:41] LABS: Alanine Aminotransfer (ALT/SGP 12 U/L (12-78); Albumin, Blood 1.8 g/dL (3.4-5.0); Albumin/Globulin Ratio 0.5 (0.8-1.8); Alk Phos 75 U/L (50-136); Anion Gap 7 mmol/L (6-16); Aspartate Aminotrans (AST/SGOT 9 U/L (12-37); Bilirubin, Total 0.2 mg/dL (0.1-1.0); Blood Urea Nitrogen 27 mg/dL (8-24); Bun/Creatinine Ratio 33.1 (12.0-20.0); CO2, Blood 28 mmol/L (21-32); Calcium, Blood 7.1 mg/dL (8.5-10.1); Chloride, Blood 110 mmol/L (98-108); Creatinine, Blood 0.82 mg/dL (0.40-1.00); Globulin, Blood 3.6 g/dL (2.2-4.0); Glomerular Filtration Rate >60 (60-); Glucose, Blood 73 mg/dL (70-99); Potassium, Blood 3.8 mmol/L (3.5-5.5); Sodium, Blood 145 mmol/L (136-145); Tobramycin, Random 1.2 ug/mL; Total Protein, Blood 5.4 g/dL (6.4-8.2)
[2018-04-12 05:43] LABS: PCO2 Arterial 62.6 mmHg (35-45); PO2 Arterial 76.5 mmHg (80-100); pH Blood Arterial 7.31 (7.35-7.45)
[2018-04-12 08:53] LABS: Vancomycin, Trough 17.3 ug/mL (5.0-10.0)
[2018-04-13 03:27] LABS: BASOPHILS ABSOLUTE AUTO 0.01 K/mm3 (0.00-0.23); BASOPHILS PERCENT AUTO 0 % (0-2); EOSINOPHILS PERCENT AUTO 0 % (0-6); Hematocrit 31.7 % (33.0-51.0); Hemoglobin 9.3 g/dL (11.5-16.0); IMMATURE GRAN ABSOLUTE AUTO 0.07 K/mm3 (0.00-0.10); IMMATURE GRAN PERCENT AUTO 1 % (0-1); LYMPHOCYTES PERCENT AUTO 2 % (21-46); MONOCYTES ABSOLUTE AUTO 0.02 K/mm3 (0.16-1.47); MONOCYTES PERCENT AUTO 0 % (4-13); Mean Corpuscular HGB 27.8 pg (26.0-34.0); Mean Corpuscular HGB Conc 29.3 g/dL (31.5-36.5); Mean Corpuscular Volume 95 fL (80-100); Mean Platelet Volume 11.5 fL (9.1-12.4); NEUTROPHILS ABSOLUTE AUTO 12.13 K/mm3 (1.96-9.15); NEUTROPHILS PERCENT AUTO 98 % (41-73); Platelet Count 235 K/mm3 (150-400); RDW Coefficient Variation 16.4 % (11.7-14.2); RDW Standard Deviation 57.1 fL (35.1-46.3); Red Blood Cell Count 3.34 M/mm3 (3.80-5.20); White Blood Cell Count 12.43 K/mm3 (4.00-11.30)
[2018-04-13 03:49] LABS: Anion Gap 7 mmol/L (6-16); Blood Urea Nitrogen 21 mg/dL (8-24); Bun/Creatinine Ratio 28.4 (12.0-20.0); CO2, Blood 28 mmol/L (21-32); Calcium, Blood 7.2 mg/dL (8.5-10.1); Chloride, Blood 108 mmol/L (98-108); Creatinine, Blood 0.74 mg/dL (0.40-1.00); Glomerular Filtration Rate >60 (60-); Glucose, Blood 197 mg/dL (70-99); Phosphorus, Blood 1.8 mg/dL (2.5-4.9); Potassium, Blood 4.3 mmol/L (3.5-5.5); Sodium, Blood 143 mmol/L (136-145)
[2018-04-13 05:03] LABS: PCO2 Arterial 46.6 mmHg (35-45); PO2 Arterial 73.3 mmHg (80-100); pH Blood Arterial 7.42 (7.35-7.45)
[2018-04-13 23:29] LABS: Tobramycin, Trough 0.4 ug/mL (0.0-1.9)
[2018-04-14 03:35] LABS: BASOPHILS ABSOLUTE AUTO 0.01 K/mm3 (0.00-0.23); BASOPHILS PERCENT AUTO 0 % (0-2); EOSINOPHILS PERCENT AUTO 0 % (0-6); Hematocrit 31.4 % (33.0-51.0); Hemoglobin 9.3 g/dL (11.5-16.0); IMMATURE GRAN ABSOLUTE AUTO 0.07 K/mm3 (0.00-0.10); IMMATURE GRAN PERCENT AUTO 1 % (0-1); LYMPHOCYTES ABSOLUTE AUTO 0.33 K/mm3 (0.84-5.20); LYMPHOCYTES PERCENT AUTO 3 % (21-46); MONOCYTES ABSOLUTE AUTO 0.11 K/mm3 (0.16-1.47); MONOCYTES PERCENT AUTO 1 % (4-13); Mean Corpuscular HGB 27.3 pg (26.0-34.0); Mean Corpuscular HGB Conc 29.6 g/dL (31.5-36.5); Mean Platelet Volume 11.5 fL (9.1-12.4); NEUTROPHILS PERCENT AUTO 95 % (41-73); Platelet Count 219 K/mm3 (150-400); RDW Coefficient Variation 16.4 % (11.7-14.2); RDW Standard Deviation 56.1 fL (35.1-46.3); Red Blood Cell Count 3.41 M/mm3 (3.80-5.20); White Blood Cell Count 11.52 K/mm3 (4.00-11.30)
[2018-04-14 03:38] LABS: Mean Corpuscular Volume 92 fL (80-100)
[2018-04-14 03:52] LABS: Albumin, Blood 1.9 g/dL (3.4-5.0); Anion Gap 6 mmol/L (6-16); Blood Urea Nitrogen 16 mg/dL (8-24); Bun/Creatinine Ratio 23.5 (12.0-20.0); CO2, Blood 30 mmol/L (21-32); Calcium, Blood 7.4 mg/dL (8.5-10.1); Chloride, Blood 109 mmol/L (98-108); Creatinine, Blood 0.68 mg/dL (0.40-1.00); Glomerular Filtration Rate >60 (60-); Glucose, Blood 186 mg/dL (70-99); Magnesium, Blood 2.2 mg/dL (1.6-2.4); Phosphorus, Blood 2.1 mg/dL (2.5-4.9); Potassium, Blood 4.8 mmol/L (3.5-5.5); Sodium, Blood 145 mmol/L (136-145)
[2018-04-14 08:28] LABS: Vancomycin, Trough 21.9 ug/mL (5.0-10.0)
[2018-04-15 04:06] LABS: BASOPHILS ABSOLUTE AUTO 0.01 K/mm3 (0.00-0.23); BASOPHILS PERCENT AUTO 0 % (0-2); EOSINOPHILS ABSOLUTE AUTO 0.01 K/mm3 (0.00-0.68); EOSINOPHILS PERCENT AUTO 0 % (0-6); Hematocrit 31.2 % (33.0-51.0); Hemoglobin 9.3 g/dL (11.5-16.0); IMMATURE GRAN ABSOLUTE AUTO 0.24 K/mm3 (0.00-0.10); IMMATURE GRAN PERCENT AUTO 2 % (0-1); LYMPHOCYTES ABSOLUTE AUTO 0.47 K/mm3 (0.84-5.20); LYMPHOCYTES PERCENT AUTO 5 % (21-46); MONOCYTES ABSOLUTE AUTO 0.17 K/mm3 (0.16-1.47); MONOCYTES PERCENT AUTO 2 % (4-13); Mean Corpuscular HGB 27.5 pg (26.0-34.0); Mean Corpuscular HGB Conc 29.8 g/dL (31.5-36.5); Mean Corpuscular Volume 92 fL (80-100); Mean Platelet Volume 11.7 fL (9.1-12.4); NEUTROPHILS ABSOLUTE AUTO 8.91 K/mm3 (1.96-9.15); NEUTROPHILS PERCENT AUTO 91 % (41-73); Platelet Count 211 K/mm3 (150-400); RDW Standard Deviation 57.5 fL (35.1-46.3); Red Blood Cell Count 3.38 M/mm3 (3.80-5.20); White Blood Cell Count 9.81 K/mm3 (4.00-11.30)
[2018-04-15 04:23] LABS: Albumin, Blood 1.9 g/dL (3.4-5.0); Anion Gap 6 mmol/L (6-16); Blood Urea Nitrogen 16 mg/dL (8-24); CO2, Blood 31 mmol/L (21-32); Calcium, Blood 8.1 mg/dL (8.5-10.1); Chloride, Blood 108 mmol/L (98-108); Creatinine, Blood 0.67 mg/dL (0.40-1.00); Glomerular Filtration Rate >60 (60-); Glucose, Blood 154 mg/dL (70-99); Phosphorus, Blood 2.9 mg/dL (2.5-4.9); Potassium, Blood 5.4 mmol/L (3.5-5.5); Sodium, Blood 145 mmol/L (136-145)
[2018-04-16 03:58] LABS: BASOPHILS ABSOLUTE AUTO 0.02 K/mm3 (0.00-0.23); BASOPHILS PERCENT AUTO 0 % (0-2); EOSINOPHILS ABSOLUTE AUTO 0.06 K/mm3 (0.00-0.68); EOSINOPHILS PERCENT AUTO 1 % (0-6); Hematocrit 33.5 % (33.0-51.0); Hemoglobin 10.2 g/dL (11.5-16.0); IMMATURE GRAN ABSOLUTE AUTO 0.44 K/mm3 (0.00-0.10); IMMATURE GRAN PERCENT AUTO 4 % (0-1); LYMPHOCYTES PERCENT AUTO 5 % (21-46); MONOCYTES ABSOLUTE AUTO 0.25 K/mm3 (0.16-1.47); MONOCYTES PERCENT AUTO 2 % (4-13); Mean Corpuscular HGB 28.5 pg (26.0-34.0); Mean Corpuscular HGB Conc 30.4 g/dL (31.5-36.5); Mean Corpuscular Volume 94 fL (80-100); Mean Platelet Volume 11.6 fL (9.1-12.4); NEUTROPHILS ABSOLUTE AUTO 9.85 K/mm3 (1.96-9.15); NEUTROPHILS PERCENT AUTO 88 % (41-73); Platelet Count 230 K/mm3 (150-400); RDW Standard Deviation 58.3 fL (35.1-46.3); Red Blood Cell Count 3.58 M/mm3 (3.80-5.20); White Blood Cell Count 11.22 K/mm3 (4.00-11.30)
[2018-04-16 04:14] LABS: Anion Gap 5 mmol/L (6-16); Blood Urea Nitrogen 22 mg/dL (8-24); Bun/Creatinine Ratio 30.4 (12.0-20.0); CO2, Blood 32 mmol/L (21-32); Calcium, Blood 8.3 mg/dL (8.5-10.1); Chloride, Blood 105 mmol/L (98-108); Creatinine, Blood 0.72 mg/dL (0.40-1.00); Glomerular Filtration Rate >60 (60-); Glucose, Blood 151 mg/dL (70-99); Magnesium, Blood 2.1 mg/dL (1.6-2.4); Phosphorus, Blood 3.3 mg/dL (2.5-4.9); Potassium, Blood 5.4 mmol/L (3.5-5.5); Sodium, Blood 142 mmol/L (136-145)
[2018-04-16 04:57] LABS: PCO2 Arterial 53.1 mmHg (35-45); PO2 Arterial 75.5 mmHg (80-100)
[2018-04-17 04:00] LABS: BASOPHILS ABSOLUTE AUTO 0.01 K/mm3 (0.00-0.23); BASOPHILS PERCENT AUTO 0 % (0-2); EOSINOPHILS ABSOLUTE AUTO 0.06 K/mm3 (0.00-0.68); EOSINOPHILS PERCENT AUTO 1 % (0-6); Hematocrit 32.5 % (33.0-51.0); Hemoglobin 9.7 g/dL (11.5-16.0); IMMATURE GRAN ABSOLUTE AUTO 0.38 K/mm3 (0.00-0.10); IMMATURE GRAN PERCENT AUTO 4 % (0-1); LYMPHOCYTES ABSOLUTE AUTO 1.04 K/mm3 (0.84-5.20); LYMPHOCYTES PERCENT AUTO 10 % (21-46); MONOCYTES ABSOLUTE AUTO 0.27 K/mm3 (0.16-1.47); MONOCYTES PERCENT AUTO 3 % (4-13); Mean Corpuscular HGB Conc 29.8 g/dL (31.5-36.5); Mean Corpuscular Volume 94 fL (80-100); Mean Platelet Volume 10.7 fL (9.1-12.4); NEUTROPHILS PERCENT AUTO 83 % (41-73); Platelet Count 223 K/mm3 (150-400); RDW Coefficient Variation 16.9 % (11.7-14.2); RDW Standard Deviation 57.1 fL (35.1-46.3); Red Blood Cell Count 3.47 M/mm3 (3.80-5.20); White Blood Cell Count 10.46 K/mm3 (4.00-11.30)
[2018-04-17 04:17] LABS: Anion Gap 4 mmol/L (6-16); Blood Urea Nitrogen 23 mg/dL (8-24); Bun/Creatinine Ratio 26.9 (12.0-20.0); CO2, Blood 35 mmol/L (21-32); Chloride, Blood 103 mmol/L (98-108); Creatinine, Blood 0.86 mg/dL (0.40-1.00); Glomerular Filtration Rate >60 (60-); Glucose, Blood 108 mg/dL (70-99); Phosphorus, Blood 3.2 mg/dL (2.5-4.9); Potassium, Blood 4.7 mmol/L (3.5-5.5); Sodium, Blood 142 mmol/L (136-145)
[2018-04-17 21:55] LABS: PCO2 Arterial 68.6 mmHg (35-45); PO2 Arterial 61.6 mmHg (80-100); pH Blood Arterial 7.34 (7.35-7.45)
[2018-04-18 03:38] LABS: BASOPHILS ABSOLUTE AUTO 0.02 K/mm3 (0.00-0.23); BASOPHILS PERCENT AUTO 0 % (0-2); EOSINOPHILS ABSOLUTE AUTO 0.18 K/mm3 (0.00-0.68); EOSINOPHILS PERCENT AUTO 2 % (0-6); Hematocrit 31.3 % (33.0-51.0); Hemoglobin 9.3 g/dL (11.5-16.0); IMMATURE GRAN ABSOLUTE AUTO 0.33 K/mm3 (0.00-0.10); IMMATURE GRAN PERCENT AUTO 3 % (0-1); LYMPHOCYTES ABSOLUTE AUTO 1.21 K/mm3 (0.84-5.20); LYMPHOCYTES PERCENT AUTO 12 % (21-46); MONOCYTES PERCENT AUTO 4 % (4-13); Mean Corpuscular HGB 28.4 pg (26.0-34.0); Mean Corpuscular HGB Conc 29.7 g/dL (31.5-36.5); Mean Corpuscular Volume 95 fL (80-100); NEUTROPHILS ABSOLUTE AUTO 8.36 K/mm3 (1.96-9.15); NEUTROPHILS PERCENT AUTO 80 % (41-73); Platelet Count 213 K/mm3 (150-400); RDW Coefficient Variation 16.7 % (11.7-14.2); RDW Standard Deviation 58.3 fL (35.1-46.3); Red Blood Cell Count 3.28 M/mm3 (3.80-5.20)
[2018-04-18 04:01] LABS: Alanine Aminotransfer (ALT/SGP 7 U/L (12-78); Albumin, Blood 2.1 g/dL (3.4-5.0); Albumin/Globulin Ratio 0.6 (0.8-1.8); Alk Phos 67 U/L (50-136); Anion Gap 5 mmol/L (6-16); Aspartate Aminotrans (AST/SGOT 9 U/L (12-37); Bilirubin, Total 0.2 mg/dL (0.1-1.0); Blood Urea Nitrogen 23 mg/dL (8-24); Bun/Creatinine Ratio 27.1 (12.0-20.0); CO2, Blood 35 mmol/L (21-32); Calcium, Blood 7.8 mg/dL (8.5-10.1); Chloride, Blood 103 mmol/L (98-108); Creatinine, Blood 0.85 mg/dL (0.40-1.00); Globulin, Blood 3.5 g/dL (2.2-4.0); Glomerular Filtration Rate >60 (60-); Glucose, Blood 96 mg/dL (70-99); Magnesium, Blood 1.9 mg/dL (1.6-2.4); Phosphorus, Blood 3.3 mg/dL (2.5-4.9); Potassium, Blood 4.1 mmol/L (3.5-5.5); Sodium, Blood 143 mmol/L (136-145); Total Protein, Blood 5.6 g/dL (6.4-8.2)
[2018-04-18 04:38] LABS: Base Excess Venous 12.4 mmol/L; Bicarbonate Venous 33.8 mmol/L (24.0-30.0); PCO2 Venous 66.9 mmHg (38-42); PO2 Venous 37.3 mmHg (38-42); pH Blood Venous 7.36 (7.34-7.37)
[2018-04-19 04:10] LABS: BASOPHILS ABSOLUTE AUTO 0.03 K/mm3 (0.00-0.23); BASOPHILS PERCENT AUTO 0 % (0-2); EOSINOPHILS ABSOLUTE AUTO 0.24 K/mm3 (0.00-0.68); EOSINOPHILS PERCENT AUTO 2 % (0-6); Hematocrit 30.5 % (33.0-51.0); IMMATURE GRAN ABSOLUTE AUTO 0.17 K/mm3 (0.00-0.10); IMMATURE GRAN PERCENT AUTO 2 % (0-1); LYMPHOCYTES ABSOLUTE AUTO 1.54 K/mm3 (0.84-5.20); LYMPHOCYTES PERCENT AUTO 14 % (21-46); MONOCYTES ABSOLUTE AUTO 0.34 K/mm3 (0.16-1.47); MONOCYTES PERCENT AUTO 3 % (4-13); Mean Corpuscular HGB Conc 29.5 g/dL (31.5-36.5); Mean Corpuscular Volume 95 fL (80-100); Mean Platelet Volume 11.1 fL (9.1-12.4); NEUTROPHILS ABSOLUTE AUTO 8.48 K/mm3 (1.96-9.15); NEUTROPHILS PERCENT AUTO 79 % (41-73); Platelet Count 220 K/mm3 (150-400); RDW Coefficient Variation 16.6 % (11.7-14.2); RDW Standard Deviation 56.9 fL (35.1-46.3); Red Blood Cell Count 3.21 M/mm3 (3.80-5.20)
[2018-04-19 04:31] LABS: Alanine Aminotransfer (ALT/SGP <6 U/L (12-78); Albumin, Blood 2.3 g/dL (3.4-5.0); Albumin/Globulin Ratio 0.6 (0.8-1.8); Alk Phos 70 U/L (50-136); Anion Gap 7 mmol/L (6-16); Aspartate Aminotrans (AST/SGOT 8 U/L (12-37); Bilirubin, Total 0.2 mg/dL (0.1-1.0); Blood Urea Nitrogen 18 mg/dL (8-24); Bun/Creatinine Ratio 19.4 (12.0-20.0); CO2, Blood 37 mmol/L (21-32); Calcium, Blood 7.8 mg/dL (8.5-10.1); Chloride, Blood 98 mmol/L (98-108); Creatinine, Blood 0.93 mg/dL (0.40-1.00); Globulin, Blood 3.7 g/dL (2.2-4.0); Glomerular Filtration Rate >60 (60-); Glucose, Blood 90 mg/dL (70-99); Potassium, Blood 3.3 mmol/L (3.5-5.5); Sodium, Blood 142 mmol/L (136-145)
[2018-04-20 04:30] LABS: BASOPHILS ABSOLUTE AUTO 0.04 K/mm3 (0.00-0.23); BASOPHILS PERCENT AUTO 0 % (0-2); EOSINOPHILS ABSOLUTE AUTO 0.21 K/mm3 (0.00-0.68); EOSINOPHILS PERCENT AUTO 2 % (0-6); Hematocrit 29.4 % (33.0-51.0); Hemoglobin 8.8 g/dL (11.5-16.0); IMMATURE GRAN ABSOLUTE AUTO 0.19 K/mm3 (0.00-0.10); IMMATURE GRAN PERCENT AUTO 2 % (0-1); LYMPHOCYTES ABSOLUTE AUTO 1.61 K/mm3 (0.84-5.20); LYMPHOCYTES PERCENT AUTO 16 % (21-46); MONOCYTES ABSOLUTE AUTO 0.34 K/mm3 (0.16-1.47); MONOCYTES PERCENT AUTO 4 % (4-13); Mean Corpuscular HGB 28.7 pg (26.0-34.0); Mean Corpuscular HGB Conc 29.9 g/dL (31.5-36.5); Mean Corpuscular Volume 96 fL (80-100); Mean Platelet Volume 11.4 fL (9.1-12.4); NEUTROPHILS PERCENT AUTO 76 % (41-73); Platelet Count 215 K/mm3 (150-400); RDW Coefficient Variation 16.7 % (11.7-14.2); RDW Standard Deviation 58.3 fL (35.1-46.3); Red Blood Cell Count 3.07 M/mm3 (3.80-5.20); White Blood Cell Count 9.79 K/mm3 (4.00-11.30)
[2018-04-20 04:46] LABS: Anion Gap 7 mmol/L (6-16); Blood Urea Nitrogen 15 mg/dL (8-24); Bun/Creatinine Ratio 19.3 (12.0-20.0); CO2, Blood 34 mmol/L (21-32); Calcium, Blood 7.6 mg/dL (8.5-10.1); Chloride, Blood 98 mmol/L (98-108); Creatinine, Blood 0.78 mg/dL (0.40-1.00); Glomerular Filtration Rate >60 (60-); Glucose, Blood 121 mg/dL (70-99); Sodium, Blood 139 mmol/L (136-145)
== END 2018-04-20 14:36 | disposition home or self-care (01) | DRG 870 ==
LOC: ER 18:19 → ICUW 21:24 → ICUE 21:24 → EDBEDREQSVC 21:46 → EDBEDREQ 21:46 → EDBEDREQTM 21:46 → ICUE 22:07
PROVIDERS: Emergency Medicine; Family Medicine; Hospitalist; Internal Medicine; Internal Medicine Critical Care Medicine; Internal Medicine Pulmonary Disease; Pharmacist
PROC: 5A1955Z Respiratory Ventilation, Greater than 96 Consecutive Hours (ICD-10-PCS; principal; 2018-04-10)
DX: A40.3 Sepsis due to Streptococcus pneumoniae (principal); J96.21 Acute and chronic respiratory failure with hypoxia; G93.41 Metabolic encephalopathy; J13 Pneumonia due to Streptococcus pneumoniae; J96.22 Acute and chronic respiratory failure with hypercapnia; J44.1 Chronic obstructive pulmonary disease with (acute) exacerbation; J44.0 Chronic obstructive pulmonary disease with (acute) lower respiratory infection; Z87.891 Personal history of nicotine dependence; F41.8 Other specified anxiety disorders; M81.0 Age-related osteoporosis without current pathological fracture; G89.29 Other chronic pain; D63.8 Anemia in other chronic diseases classified elsewhere; Z93.0 Tracheostomy status; I10 Essential (primary) hypertension
CPT/HCPCS: 31720; 36415; 36569; 36600; 51702; 71045; 80048; 80053; 80069; 80200; 80202; 82803; 82947; 83605; 83735; 84100; 85025; 85027; 87040; 87070; 87077; 87186; 87205; 87449; 87486; 87581; 87633; 87798; 92610; 93005; 93010; 94002; 94003; 94640; 96365; 96367; 97110; 97163; 97166; 97530; 99285-25; C1751; C1894; C9113; G8978; G8979; G8987; G8988; G8996; G8997; G8998; J0278; J0690; J0713; J1650; J1940; J2060; J2185; J2920; J3010; J3260; J3370; J3480; J7030; J7040; J7050; J7060; J7120

== ENCOUNTER 2018-05-16 00:13 | Day surgery (SDC) | payer OTHER ==
[~2018-05-16 00:13] MED LIST changes: +CENTRUM SILVER1 EAC2 PO; +FURO40 PO; +Ipratropium Bro30 ML UD; +Iron Chews15 MG PO; +Mucus Relief400 MG PO; +NIACINAMIDE500 MG PO; +STIOLTO RESPIMAT4 GM UD; +TRAZ150T57 PO
== END 2018-05-16 14:45 | disposition home or self-care (01) ==
LOC: ATC 00:13
DX: Z78.9 Other specified health status (principal)
CPT/HCPCS: 96523; J1642

== ENCOUNTER 2018-05-21 04:11 | Inpatient (IN) | payer OTHER ==
[~2018-05-21] VITALS: Ht 165.1 cm; Wt 61.9 kg
[2018-05-21 04:20] LABS: PCO2 Arterial 87.8 mmHg (35-45); PO2 Arterial 72.9 mmHg (80-100); pH Blood Arterial 7.21 (7.35-7.45)
[2018-05-21 04:42] LABS: BASOPHILS ABSOLUTE AUTO 0.08 K/mm3 (0.00-0.23); BASOPHILS PERCENT AUTO 1 % (0-2); EOSINOPHILS ABSOLUTE AUTO 0.21 K/mm3 (0.00-0.68); EOSINOPHILS PERCENT AUTO 2 % (0-6); Hemoglobin 11.2 g/dL (11.5-16.0); IMMATURE GRAN ABSOLUTE AUTO 0.04 K/mm3 (0.00-0.10); IMMATURE GRAN PERCENT AUTO 0 % (0-1); LYMPHOCYTES PERCENT AUTO 20 % (21-46); MONOCYTES ABSOLUTE AUTO 0.54 K/mm3 (0.16-1.47); MONOCYTES PERCENT AUTO 5 % (4-13); Mean Corpuscular HGB 27.9 pg (26.0-34.0); Mean Corpuscular HGB Conc 28.7 g/dL (31.5-36.5); Mean Corpuscular Volume 97 fL (80-100); Mean Platelet Volume 11.2 fL (9.1-12.4); NEUTROPHILS ABSOLUTE AUTO 7.35 K/mm3 (1.96-9.15); NEUTROPHILS PERCENT AUTO 72 % (41-73); Platelet Count 261 K/mm3 (150-400); RDW Coefficient Variation 15.8 % (11.7-14.2); RDW Standard Deviation 56.6 fL (35.1-46.3); Red Blood Cell Count 4.01 M/mm3 (3.80-5.20); White Blood Cell Count 10.22 K/mm3 (4.00-11.30)
[2018-05-21 04:57] LABS: Alanine Aminotransfer (ALT/SGP 12 U/L (12-78); Albumin/Globulin Ratio 0.6 (0.8-1.8); Alk Phos 105 U/L (50-136); Anion Gap 4 mmol/L (6-16); Aspartate Aminotrans (AST/SGOT 19 U/L (12-37); Bilirubin, Total 0.2 mg/dL (0.1-1.0); Blood Urea Nitrogen 12 mg/dL (8-24); CO2, Blood 34 mmol/L (21-32); Calcium, Blood 9.2 mg/dL (8.5-10.1); Chloride, Blood 103 mmol/L (98-108); Creatinine, Blood 0.75 mg/dL (0.40-1.00); Globulin, Blood 4.8 g/dL (2.2-4.0); Glomerular Filtration Rate >60 (60-); Glucose, Blood 105 mg/dL (70-99); International Normalized Ratio 0.97; Potassium, Blood 4.3 mmol/L (3.5-5.5); Sodium, Blood 141 mmol/L (136-145); Total Protein, Blood 7.8 g/dL (6.4-8.2)
[2018-05-21 05:06] LABS: Influenza A Negative (NEGATIVE); Influenza B Negative (NEGATIVE)
[2018-05-21] MEDS ORDERED: PANT40 PO (05:16)
[2018-05-21] MEDS ORDERED: Atrovent Inha12.9 GM INH ×2 (05:17→10:38)
[2018-05-21] MEDS ORDERED: STIOLTO RESPIMAT4 GM UD (05:18)
[2018-05-21] MEDS ORDERED: PRED10 PO (05:23)
[2018-05-21] MEDS ORDERED: STIOLTO RESPIMAT4 GM INH (10:24)
[2018-05-21] MEDS ORDERED: PREG75 PO (10:33)
[2018-05-21 10:40] LABS: PCO2 Arterial 43.4 mmHg (35-45); PO2 Arterial 57.8 mmHg (80-100); pH Blood Arterial 7.42 (7.35-7.45)
--- NOTE | 2018-05-21 11:32 | NUR ---
0915-RECEIVED THIS PT FROM ER WITH CHIEF COMPLAINT OF FEVER AND DIFFICULTY BREATHING. PT IS SOMEWHAT DROWSY BUT OPENS EYES TO VOICE. ANSWERING QUESTIONS APPROPRIATELY. FOLLOWING DIRECTIONS. PT WAS MEDICATED WITH ATIVAN IN THE ER PRIOR TO COMING TO THE UNIT. INFORMED PT THAT URINE SAMPLE IS NEEDED FOR [facility]. 1755-DR. CHANEL WAS NOTIFIED REGARDING PT'S ADMIT.
--- NOTE | 2018-05-21 13:23 | NUR ---
REC'D REPORT FROM LYMY AND NOW RE-ASSUMING CARE OF PT.
--- NOTE | 2018-05-21 15:40 | NUR ---
PT UPDATE: PT IS MORE ALERT THAN PRIOR ASSESSMENT, HOWEVER, REMAINS SOMEWHAT DROWSY. PT REPORTS HEADACHE PAIN. PT NOT QUITE DUE FOR FENTANYL AND PT DECLINES WANTING TYLENOL. PT WITH INCREASED PEAK PRESSURES AT THIS TIME. PT CONTINUES TO HAVE THICK SPUTUM OUT. RT AT BEDSIDE TO MANAGE VENT AND ASSESS AIRWAY. PT DECLINED CPT AT THIS TIME R/T HEADACHE. WILL ATTEMPT AGAIN AFTER NEXT PAIN MEDICATION ADMINISTRATION.
--- NOTE | 2018-05-21 19:00 | NUR ---
SHIFT SUMMARY: PT MORE ALERT THAN IN COMPARISON TO EARLIER THIS SHIFT. ORIENTED AND ABLE TO ANSWER QUESTIONS APPROPRIATELY AND FOLLOW COMMANDS. PT'S BIGGEST C/O IS OF A PERSISTENT DAS THAT WAS NOT RELIEVED WITH FENTANYL IV. PT ABLE TO REPOSITION SELF IN BED AND WILL CALL IF SHE NEEDS ASSIST. PT'S DAD REMAINS AT BEDSIDE AND ASSISTS PT WITH NEEDS. LUNGS REMAIN CLEAR IN UPPER LOBES BUT DIMINISHED IN RML/RLL/LLL, WITH WHEEZES HEARD IN BILATERAL BASES. VENT SETTINGS UNCHANGED T/O SHIFT AND 02 SATS REMAIN >90%. PT'S HOME VENT AT BEDSIDE. HR SR WITH CONTROLLED RATE. LR @ 125ML/HR. NO VOID THIS SHIFT AND REPORTED THAT OFF TO PIERCE RAM WHOM IS ASSUMING CARE OF THIS PT. NO BM THIS SHIFT. -FULL CODE -CONTACT/DROPLET ISOLATION -MONITOR/TX PAIN PER ORDERS.
--- NOTE | 2018-05-21 19:15 | NUR ---
ASSUMED PT CARE PT RESTING IN BED WITH FATHER AT BEDSIDE. VENT SETTINGS : AC 18; TV 500; PEEP 5; FIO2 30%. LR INFUSING AT 125MLS/HR. PT IS ALERT AND ORIENTED; ABLE TO COMMUNICATE NEEDS. PT C/O MIGRAINE HEADACHE THAT HAS BEEN OFF AND ON FOR ABOUT A WEEK; MEDICATED WITH PRN FENTANYL 25MCG AND 2.5MG OXYCODONE, WHICH HAVE GIVEN NO RELIEF. REPORTING OFF RN STATED THAT PT IS NPO STATUS, BUT HAS MEDS SCHEDULED TO BE GIVEN PO WITH NO PEG TUBE IN PLACE. THEREFORE, HOSPITALIST TO BE CALLED TO CLARIFY MED ADMINISTRATION. PT IS COMFORTABLE AT THIS TIME; LIGHTS DIMMED TO HELP WITH HEADACHE.
--- NOTE | 2018-05-21 19:30 | NUR ---
DR. JOHNSON CALLED TO CLARIFY MEDICATION ADMINSTRATION PT IS NPO STATUS WITH NO PLAN FOR SURGERY TO RIGHT FOOT SECONDARY TO FX. PT HAS A FENESTRATED TRACH AND NORMALLY TAKES MEDS WHOLE PO AT HOME. DR. JOHNSON OKAY'D MEDS TO BE GIVEN PO PT TOLERATES. ALSO INFORMED DR. JOHNSON REGARDING MIGRAINE WITH NO RELIEF FROM FENTANYL OR OXYCODONE.
--- NOTE | 2018-05-21 20:00 | NUR ---
NO VOID IT WAS REPORTED TO THIS RN THAT PT WAS A NO VOID DURING DAY SHIFT. WHEN PT WAS ASKED IF SHE NEEDED TO USE THE RESTROOM SHE STATED SHE WAS AFRAID TO GET OUT OF BED BECAUSE IT WOULD "HURT TOO BAD". WHEN BEDPAN WAS OFFERED PT STATED SHE WAS TOO ANXIOUS AND COULDN'T BREATHE. PT WAS EDUCATED ABOUT RISKS OF NOT VOIDING. NONETHELESS, PT WAS ALSO GIVEN HER SCHEDULED MEDICATIONS, WHICH INCLUDED ANTI-ANXIETY MEDICATIONS. INFORMED PT THAT SHE COULD HAVE AN HOUR TO TRY AND RELAX AFTER THE ADMINSTRATION OF MEDICATIONS AND THEN WE WOULD NEED TO USE THE BEDPAN.
[2018-05-22 04:26] LABS: BASOPHILS ABSOLUTE AUTO 0.01 K/mm3 (0.00-0.23); BASOPHILS PERCENT AUTO 0 % (0-2); EOSINOPHILS PERCENT AUTO 0 % (0-6); Hematocrit 30.3 % (33.0-51.0); IMMATURE GRAN ABSOLUTE AUTO 0.04 K/mm3 (0.00-0.10); IMMATURE GRAN PERCENT AUTO 0 % (0-1); LYMPHOCYTES ABSOLUTE AUTO 0.39 K/mm3 (0.84-5.20); LYMPHOCYTES PERCENT AUTO 3 % (21-46); MONOCYTES ABSOLUTE AUTO 0.08 K/mm3 (0.16-1.47); MONOCYTES PERCENT AUTO 1 % (4-13); Mean Corpuscular HGB 27.6 pg (26.0-34.0); Mean Corpuscular HGB Conc 29.7 g/dL (31.5-36.5); Mean Platelet Volume 11.2 fL (9.1-12.4); NEUTROPHILS ABSOLUTE AUTO 12.57 K/mm3 (1.96-9.15); NEUTROPHILS PERCENT AUTO 96 % (41-73); Platelet Count 193 K/mm3 (150-400); RDW Coefficient Variation 16.1 % (11.7-14.2); RDW Standard Deviation 54.4 fL (35.1-46.3); Red Blood Cell Count 3.26 M/mm3 (3.80-5.20); White Blood Cell Count 13.09 K/mm3 (4.00-11.30)
[2018-05-22 04:33] LABS: Mean Corpuscular Volume 93 fL (80-100)
[2018-05-22 04:43] LABS: Anion Gap 10 mmol/L (6-16); Blood Urea Nitrogen 16 mg/dL (8-24); Bun/Creatinine Ratio 22.8 (12.0-20.0); CO2, Blood 27 mmol/L (21-32); Chloride, Blood 102 mmol/L (98-108); Glomerular Filtration Rate >60 (60-); Glucose, Blood 112 mg/dL (70-99); Potassium, Blood 4.1 mmol/L (3.5-5.5); Sodium, Blood 139 mmol/L (136-145)
[2018-05-22 04:45] LABS: PCO2 Arterial 40.1 mmHg (35-45); pH Blood Arterial 7.47 (7.35-7.45)
--- NOTE | 2018-05-22 06:31 | NUR ---
END OF SHIFT SUMMARY PT HAS REMAINED ON HOSPITAL VENT WITH SETTINGS: AC 18; TV 500; PEEP 5; FIO2 30%. PT IS ALERT AND ORIENTED; ABLE TO FOLLOW COMMANDS. MEDICATIONS ADMINSTERED PO AND PT TOLERATED WELL. FREQUENT REQUESTS FOR PRN PAIN MEDICATION; MEDICATED WITH TYLENOL X1; FENTANYL 25MCG X3; AND OYCODONE 2.5MG X1; PT CLAIMS ALL ARE UNEFFECTIVE AND NEEDS DOSE INCREASED. INFORMED PT THAT AT THE BEGINNING OF SHIFT; DR. CHANEL WAS TALKED TO ABOUT HER PAIN AND ANXIETY; NO NEW ORDERS WERE GIVEN. PT WOULD LIKE TO SPEAK WITH INTENSIVEST TODAY REGARDING PAIN. PT NEEDED FREQUENT SUCTIONING T/O NIGHT; COPIOUS AMOUNTS OF THICK, PURULENT, YELLOW/EMERSON SECRETIONS SUCTIONED. PT VOIDED X2 USING BEDPAN. PT C/O FREQUENT ANXIETY D/T THE INABILITY TO BREATHE; EDUCATED PT ON BODY POSITIONING AND ENCOURAGED MORE FLUID INTAKE TO HELP THIN SECRETIONS; PT IS ALSO TAKING MUCINEX AND PT WAS EDUCATED REGARDING THE EFFECTS OF MUCINEX. PT APPEARS COMFORTABLE AT THIS TIME; FINALLY SLEEPING. DECLINED REPOSITIONING T/O NIGHT. PREFERS TO SLEEP ON HER LEFT SIDE. DR. CHANEL ENTERED ORDERS THAT PT IS OKAY TO HAVE MECHANICAL SOFT DIET, BUT CUFF NEEDS DEFLATED DURING MEALS AND REINFLATED AFTER MEALS. NONETHELESS, DR. CHANEL STATED PT COULD GO BACK ON HOME VENT PENDING ABG RESULTS THIS AM.
--- NOTE | 2018-05-22 07:30 | NUR ---
ASSUMED CARE ASSUMED CARE OF PATIENT. PATIENT CURRENTLY ON OUR VENT. PATIENT AWAKE AND INTERACTING IN BEDSIDE REPORT. CONTINUES TO VERBALIZE CONCERNS ABOUT NOT FEELING LIKE SHE IS BREATHING AT TIMES. CONTINUES TO HAVE PAIN IN R FOOT. PLAN TO CONTINUE TO MONITOR RESPITORY STATUS, WILL ATTEMPT TRIAL ON HOME VENT. WILL CONTINUE TO MEDICATE FOR PAIN. WILL ENCOURAGE PATIENT TO AMBULATE PER DR FITZGERALD ORDERS. WILL OBTAIN ORTHO BOOT PER ORDERS. WILL NOTIFY PHYSICIANS OF ANY CHANGES.
--- NOTE | 2018-05-22 10:58 | NUR ---
PATIENT VERY RESTLESS THIS AM. HAVING TROUBLES VOIDING IN BEDPAN. FEELING LIKE SHE IS NOT BREATHING. PATIENT REQUESTING PAIN MEDS AND SOMETHING FOR ANXIETY. PATIENT MEDICATED FOR PAIN. VENT SETTINGS CHANGED AND PATIENT STATES MORE COMFORTABLE. PATIENT ASSISTED UP TO BEDSIDE COMMODE AND WAS ABLE TO VOID. PATIENT ABLE TO TRANSFER WITH HEEL TOUCH AND WALKER TO COMMODE. VISITORS IN ROOM. BED BATH GIVEN WHILE UP TO COMMODE.
--- NOTE | 2018-05-22 17:06 | NUR ---
Permission to access Patient gave this student nurse permission to access chart and care for her
--- NOTE | 2018-05-22 17:41 | NUR ---
SUMMARY PATIENT CONTINUES TO BE ON OUR VENT. PATIENT UP TO COMMODE MULTIPLE TIMES TODAY WITH MINIMAL ASSIST WITH TRANSFER. PATIENT CONTINUES TO HAVE PAIN IN R FOOT. SWELLING OF R FOOT CONTINUES TO BE PRESENT. ORTHO SHOE ON. PATIENT CONTINUES TO HAVE CHRONIC GENERAL PAIN. NO DESIRE TO EAT TODAY BUT STATES THAT SHE WILL EAT TOMORROW. WILL GIVE REPORT TO ONCOMING SHIFT WHEN AVAILABLE.
--- NOTE | 2018-05-22 20:36 | NUR ---
ASSUMING CARE RECEIVED PT REPORT FROM PIERCE KESSLER. PT IS ALERT AND ORIENTED AT THE TIME OF SHIFT REPORT. PT IN ON VENT VIA TRACH AT THIS TIME. PT VENT IS CURRENTLY ON SIMV SETTING AT 12, TV 500, FIO2 30% , AND PEEP 5. PT IS MAINTAINING SPO2 IN THE MID TO HIGH 90'S AT THIS TIME. PT HAS A RT FOOT FX, RELATED TO KICKING A BEDSIDE COMMODE AT HOME PER REPORT. PT HAS A POST OP SHOE FOR RT FOOT THAT IS APPLIED FOR TRANSFERS. PT IS ABLE TO ASSIST WITH TRANSFERS AND IS ABLE TO REPOSITION SELF IN BED WITHOUT DIFFICULTY. PT IS RECEIVING LR 125ML/HR AT THIS TIME. PT HAS AN IV IN THE RT WRIST AND RT AC. ASSUMING CARE OF PT AT THE TIME OF SHIFT REPORT. WILL CONTINUE TO MONITOR PT.
--- NOTE | 2018-05-23 06:29 | NUR ---
SHIFT SUMMARY NOTE PT HAS REMAINED ALERT AND ORIENTED THROUGH THE [facility] WHILE AWAKE. PT REMAINS VENTED VIA TRACH. PT VENT SETTINGS HAVE REMAINED UNCHANGED THROUGH THE NIGHT. PT SPO2 HAS MAINTAINED IN THE MID TO HIGH 90'S WITHOUT ANY NOTED DESATURATIONS. PT HAS REQUESTED FREQUENT PAIN MEDICATIONS THROUGH THE NIGHT, AND REQUESTED XANAX. REFER TO EMAR FOR MEDICATION ADMINISTRATION DETAILS. PT REMAINS ON LR AT 125ML/HR. PT HAS REMAINED ABLE TO REPOSITION SELF IN BED WITHOUT ASSISTANCE. PT HAS BEEN ABLE TO TRANSFER WITH MINIMAL ASSISTANCE WITH ORTHO BOOT IN PLACE. PT HAS BEEN UP FREQUENTLY THROUGH THE NIGHT TO USE BEDSIDE COMMODE. PT HAS VOIDED CLEAR LIGHT YELLOW URINE THROUGH THE NIGHT. WILL REPORT OFF TO ONCOMING DAY SHIFT NURSE.
--- NOTE | 2018-05-23 08:00 | NUR ---
INITIAL ASSESSMENT PATIENT RESTING QUIETLY UPON ENTERING ROOM. PATIENT GIVEN PRN PAIN MEDICATION SHORT TIME AGO FOR COMPLAINT OF PAIN IN R FOOT THAT IS FRACTURED. PATIENT INTUBATED INTO TRACH. PATIENT ALERT AND ORIENTED X 4, ANXIOUS AT TIMES. PATIENT STATES THAT NEW PRN ORDER FOR XANAX IS HELPING WITH ANXIETY. PATIENT FOLLOWING DIRECTIONS. PATIENT REPOSITIONING SELF IN BED AND IS 1 PERSON TRANSFER TO [facility] BOOT IN PLACE TO R FOOT. PATIENT ON SIMV 12, PS 10, PEEP 5, 30% FIO2. LUNGS ARE DIMINISHED AND WHEEZY THROUGHOUT. PATIENT HAS OCCASIONAL COUGH- SMALL AMOUNT OF THICK, YELLOW SPUTUM BEING SUCTIONED THROUGH TRACH. PATIENT IN NSR, HR 60S TO 90S. BP STABLE. STOOL LOOSE AND SOFT THIS AM. WNL. PATIENT HAS SCATTERED BRUISES AND SCARS T/O BODY. ABRASION NOTED TO R ANKLE. R FOOT SWOLLEN. LR INFUSING AT 125 MLS/ HOUR. BED LOW, CALL LIGHT IN REACH. WILL CONTINUE TO MONITOR PATIENT FREQUENTLY THROUGHOUT SHIFT.
--- NOTE | 2018-05-23 10:45 | NUR ---
CALLED AND SPOKE TO [facility] INFORMING THEM THAT DR. CULVER WOULD LIKE FOR THEM TO COME IN AND CHANGE THE PATIENT'S HOME VENTILATOR TO THE SAME SETTINGS THE HOSPITAL VENTILATOR. ORDER ALSO FAXED TO THEM. SELVIN STATED SOMEONE WOULD BE IN THIS AFTERNOON TO CHANGE SETTINGS.
--- NOTE | 2018-05-23 12:11 | NUR ---
PATIENT ASSISTED TO BSC. PATIENT TOLERATED WELL. PATIENT BACK IN BED WITH NO COMPLAINTS. PATIENT AFEBRILE. PATIENT VITAL SIGNS STABLE. NO ACUTE CHANGES TO NOTE ON AT THIS TIME. BED LOW, CALL LIGHT IN REACH. WILL CONTINUE TO MONITOR.
--- NOTE | 2018-05-23 16:16 | NUR ---
[facility] CAME IN AND CHANGED HOME VENTILATOR SETTINGS TO ORDERED VENT SETTINGS OF SIMV 12, PS 10, PEEP 5, 30% FIO2. RT IN WITH PATIENT AND PATIENT'S FATHER TO CHANGE PATIENT OVER FROM HOSPITAL VENT TO HOME VENT.
--- NOTE | 2018-05-23 16:40 | NUR ---
PATIENT SITTING ON SIDE OF BED. FATHER IN ROOM VISITING. PATIENT REMAINS ON HOSPITAL VENT AT THIS TIME. RT TO CALL [facility] TO CHANGE SOME OF THE BACK UP SETTINGS THAT WERE NOT CORRECTED. PATIENT REMAINS IN SR, HR IN THE 80S. BP STABLE. PATIENT GIVEN PRN PAIN MEDICATION FOR COMPLAINT OF PAIN IN R FRACTURED FOOT. PATIENT REFUSES BED BATH AND ORAL CARE AT THIS TIME. WILL CONTINUE TO MONITOR.
--- NOTE | 2018-05-23 18:03 | NUR ---
SHIFT SUMMARY PATIENT NAPPED ON AND OFF THROUGHOUT SHIFT. PATIENT REMAINED ALERT AND ORIENTED X 4. PATIENT COOPERATIVE, ANXIOUS AT TIMES. PATIENT WEAK BUT ABLE TO REPOSITION SELF IN BED AND TRANSFER TO [facility] WITH ASSIST OF ONE PERSON AND BOOT CAST TO R FRACTURED FOOT. PATIENT REMAINED AFEBRILE. PATIENT GIVEN PRN ANXIOLYTIC AND PRN PAIN MEDICATIONS THROUGHOUT SHIFT REQUESTED. PATIENT SWITCHED OVER FROM HOSPITAL VENT TO HOME VENT. [facility] CAME IN AND ADJUSTED SETTINGS WITH ICU RT PRESENT. PATIENT REMAINS ON SIMV 12, PS 10, PEEP 5, 30% FIO2. LUNGS REMAIN DIMINISHED AND WHEEZY THROUGHOUT. TRACH SITE REMAINS WNL. PATIENT HAS OCCASIONAL COUGH WITH SMALL AMOUNT OF THICK, YELLOW SPUTUM BEING SUCTIONED FROM TRACH TUBE. PATIENT HAS REMAINED IN SR TO ST, HR 60S TO LOW 100S. BP REMAINED STABLE. PATIENT HAVING LIQUID STOOL TODAY. PATIENT HAS POOR APPETITE- ALL PATIENT ATE TODAY WAS 1 BANANA AND 1 TACO. WNL. NO CHANGE TO SKIN. LR INFUSING AT 75 MLS/ HOUR. PATIENT REFUSED BED BATH AND ORAL CARE TODAY. FATHER IN AND OUT THROUGHOUT DAY. PATIENT HAS NO COMPLAINTS AT THIS TIME. BED LOW, CALL LIGHT IN REACH. WILL CONTINUE TO MONITOR FREQUENTLY UNTIL REPORT GIVEN TO ONCOMING GEOGRAPHIC INFORMATION SYSTEM SURVEYOR NURSE SHORTLY.
--- NOTE | 2018-05-23 19:50 | NUR ---
ASSUMED CARE BEDSIDE REPORT RECIEVED. PT IS SITTING UP AT THE SIDE OF THE BED. PT WITH TRACH AND HOME VENT AT THIS TIME. SETTINGS SIMV 12, TV 500, PS 10, PEEP 5, 3L O2 BLEED IN. PT IS ALERT, ORIENTED, AND MOUTHS WORDS TO COMMUNICATE. LR INFUSING AT 75 ML/HR. VITAL SIGNS STABLE. PT REQUESTING SOUP AT THIS TIME. PT WITH RIGHT FOOT FRACTURES, RIGHT FOOT SWOLLEN AND BRUISED. WILL CONTINUE TO MONITOR.
[2018-05-24 04:14] LABS: BASOPHILS ABSOLUTE AUTO 0.02 K/mm3 (0.00-0.23); BASOPHILS PERCENT AUTO 0 % (0-2); EOSINOPHILS ABSOLUTE AUTO 0.07 K/mm3 (0.00-0.68); EOSINOPHILS PERCENT AUTO 1 % (0-6); Hematocrit 30.7 % (33.0-51.0); Hemoglobin 9.3 g/dL (11.5-16.0); IMMATURE GRAN ABSOLUTE AUTO 0.03 K/mm3 (0.00-0.10); IMMATURE GRAN PERCENT AUTO 0 % (0-1); LYMPHOCYTES ABSOLUTE AUTO 1.38 K/mm3 (0.84-5.20); LYMPHOCYTES PERCENT AUTO 16 % (21-46); MONOCYTES ABSOLUTE AUTO 0.54 K/mm3 (0.16-1.47); MONOCYTES PERCENT AUTO 6 % (4-13); Mean Corpuscular HGB 28.1 pg (26.0-34.0); Mean Corpuscular HGB Conc 30.3 g/dL (31.5-36.5); Mean Corpuscular Volume 93 fL (80-100); Mean Platelet Volume 11.7 fL (9.1-12.4); NEUTROPHILS ABSOLUTE AUTO 6.81 K/mm3 (1.96-9.15); NEUTROPHILS PERCENT AUTO 77 % (41-73); Platelet Count 146 K/mm3 (150-400); RDW Coefficient Variation 17.2 % (11.7-14.2); RDW Standard Deviation 58.1 fL (35.1-46.3); Red Blood Cell Count 3.31 M/mm3 (3.80-5.20); White Blood Cell Count 8.85 K/mm3 (4.00-11.30)
[2018-05-24 04:59] LABS: Albumin, Blood 2.2 g/dL (3.4-5.0); Anion Gap 7 mmol/L (6-16); Blood Urea Nitrogen 11 mg/dL (8-24); Bun/Creatinine Ratio 15.7 (12.0-20.0); CO2, Blood 29 mmol/L (21-32); Calcium, Blood 7.8 mg/dL (8.5-10.1); Chloride, Blood 108 mmol/L (98-108); Glomerular Filtration Rate >60 (60-); Glucose, Blood 85 mg/dL (70-99); Phosphorus, Blood 1.7 mg/dL (2.5-4.9); Potassium, Blood 3.7 mmol/L (3.5-5.5); Sodium, Blood 144 mmol/L (136-145)
--- NOTE | 2018-05-24 06:00 | NUR ---
SHIFT SUMMARY NO ACUTE CHANGES THIS SHIFT. PT REMAINED ON HOME VENT THROUGHOUT THE NIGHT. PT WITH THICK YELLOW SECRETIONS WITH TRACH SUCTION. PT SLEPT THROUGHOUT MOST OF THE SHIFT. WHEN AWAKE PT IS ALERT AND ORIENTED. PT MED WITH FENTANYL PRN FOR PAIN TO RIGHT FOOT. RIGHT FOOT REMAINS SWOLLEN AND BRUISED. PT TRANSFERED TO BSC WELL WITH BOOT ON RIGHT FOOT. PT TOLERATING PO FLUIDS WELL. WITH WITH GOOD URINARY OUTPUT THIS SHIFT. LR REMAINS AT 75 ML/HR. VITAL SIGNS HAVE REMAINED STABLE. WILL CONTINUE TO MONITOR AND REPORT OFF TO ONCOMING RN.
--- NOTE | 2018-05-24 07:16 | NUR ---
Recieved report from Tomás PELAYO. Patient sleeping on left side and on her home vent and sats mid 90%'s. Will allow her to sleep. HR in the 60-70's and systolic 118 with MAP >65. Father has not arrived as of yet..
--- NOTE | 2018-05-24 09:47 | NUR ---
Patient awakened and was able to communicate clearly and requested to be suctioned. She states she was not very hungry and want breakfast left on table and she will try later. She continues on her home vent setting now for almost 24 hours and has sats 99% currently with systolic 128 and HR 68, and tolerating well. She has thick creamy umanzor secretion small amount through trach. She has 20ga IV RFA dressing intact and site WNL and is infusing LR at 75ml/hr.
--- NOTE | 2018-05-24 11:20 | NUR ---
Patient continues to rest. She was up to bedside cammode with minimal assist, just with equipment and transfered very well with pivot transfer. Sats continue to be good her home vent and is currently 99%, VSS. Medicated for pain earlier and states feeling slightly better. Father has not been by as of yet. She has been doing her own trach suctioning, still small amounts of creamy light umanzor secreations. She tolerated her PO meds well with water.
--- NOTE | 2018-05-24 13:59 | NUR ---
Patient medicated for pain prior to going home. Pulled both IV's intact, suctioned her, and RT reduced cuff 1cc air. She got dress without assist and PCT's got in Wheelchair and RT going out to escort to car. She recieved written discharge instructions and knodded that she understood information. She was a little anxious when leaving and needed to suction and RT modified hose to help her. It took few more minuts and breathing tratment and wheeled her to car and waited for her to be settled in car and they stated they were ok.
== END 2018-05-24 14:39 | disposition home or self-care (01) | DRG 871 ==
LOC: ER 04:11 → ICUW 06:05 → ICUE 06:05
PROVIDERS: Emergency Medicine; Internal Medicine Critical Care Medicine; ADMIT Family Medicine
DX: A41.9 Sepsis, unspecified organism (principal); J96.22 Acute and chronic respiratory failure with hypercapnia; J44.1 Chronic obstructive pulmonary disease with (acute) exacerbation; I50.22 Chronic systolic (congestive) heart failure; R65.20 Severe sepsis without septic shock; Z99.81 Dependence on supplemental oxygen; G89.29 Other chronic pain; D63.8 Anemia in other chronic diseases classified elsewhere; Z93.0 Tracheostomy status; I10 Essential (primary) hypertension; I11.0 Hypertensive heart disease with heart failure; R53.81 Other malaise; S92.311A Displaced fracture of first metatarsal bone, right foot, initial encounter for closed fracture; S92.321A Displaced fracture of second metatarsal bone, right foot, initial encounter for closed fracture; S92.331A Displaced fracture of third metatarsal bone, right foot, initial encounter for closed fracture; X58.XXXA Exposure to other specified factors, initial encounter; I95.9 Hypotension, unspecified; K21.9 Gastro-esophageal reflux disease without esophagitis
CPT/HCPCS: 31720; 36415; 36600; 71045; 73620; 80048; 80053; 80069; 82803; 83605; 84145; 85025; 85610; 85730; 87040; 87070; 87077; 87147; 87186; 87205; 87804; 93005; 93010; 94002; 94003; 94640; 94667; 94668; 96361; 96365; 96367; 96375; 99285-25; J1650; J2060; J2405; J2543; J2930; J3010; J3260; J3370; J7120

== ENCOUNTER 2018-06-16 00:12 | Day surgery (SDC) | payer OTHER ==
[~2018-06-16 00:12] MED LIST changes: +Atrovent Inha12.9 GM INH
== END 2018-06-16 13:15 | disposition home or self-care (01) ==
LOC: ATC 00:12
DX: Z78.9 Other specified health status (principal); Z87.891 Personal history of nicotine dependence
CPT/HCPCS: 36591; J1642

== ENCOUNTER 2018-07-30 03:34 | Inpatient (IN) | payer OTHER ==
[~2018-07-30] VITALS: Ht 165.1 cm; Wt 73.0 kg
[2018-07-30 03:52] LABS: BASOPHILS ABSOLUTE AUTO 0.04 K/mm3 (0.00-0.23); BASOPHILS PERCENT AUTO 0 % (0-2); EOSINOPHILS ABSOLUTE AUTO 0.24 K/mm3 (0.00-0.68); EOSINOPHILS PERCENT AUTO 2 % (0-6); Hematocrit 41.4 % (33.0-51.0); Hemoglobin 11.7 g/dL (11.5-16.0); IMMATURE GRAN ABSOLUTE AUTO 0.02 K/mm3 (0.00-0.10); IMMATURE GRAN PERCENT AUTO 0 % (0-1); LYMPHOCYTES PERCENT AUTO 18 % (21-46); MONOCYTES ABSOLUTE AUTO 0.57 K/mm3 (0.16-1.47); MONOCYTES PERCENT AUTO 6 % (4-13); Mean Corpuscular HGB 28.1 pg (26.0-34.0); Mean Corpuscular HGB Conc 28.3 g/dL (31.5-36.5); Mean Corpuscular Volume 100 fL (80-100); Mean Platelet Volume 10.9 fL (9.1-12.4); NEUTROPHILS ABSOLUTE AUTO 7.24 K/mm3 (1.96-9.15); NEUTROPHILS PERCENT AUTO 73 % (41-73); Platelet Count 224 K/mm3 (150-400); RDW Coefficient Variation 14.9 % (11.7-14.2); RDW Standard Deviation 54.9 fL (35.1-46.3); Red Blood Cell Count 4.16 M/mm3 (3.80-5.20); White Blood Cell Count 9.91 K/mm3 (4.00-11.30)
[2018-07-30 03:57] LABS: PCO2 Arterial 99.4 mmHg (35-45); PO2 Arterial 53.1 mmHg (80-100); pH Blood Arterial 7.26 (7.35-7.45)
[2018-07-30] MEDS ORDERED: TUMS500 MG PO (04:02)
[2018-07-30] MEDS ORDERED: FOLI1 PO (04:05)
[2018-07-30] MEDS ORDERED: ASCO500 PO (04:06)
[2018-07-30] MEDS ORDERED: NIAC500 PO (04:09)
[2018-07-30] MEDS ORDERED: BACL10 PO (04:09)
[2018-07-30 04:11] LABS: Alanine Aminotransfer (ALT/SGP 15 U/L (12-78); Albumin, Blood 3.4 g/dL (3.4-5.0); Albumin/Globulin Ratio 0.8 (0.8-1.8); Alk Phos 96 U/L (50-136); Anion Gap 3 mmol/L (6-16); Aspartate Aminotrans (AST/SGOT 13 U/L (12-37); Bilirubin, Total 0.2 mg/dL (0.1-1.0); Blood Urea Nitrogen 14 mg/dL (8-24); Bun/Creatinine Ratio 12.8 (12.0-20.0); CO2, Blood 41 mmol/L (21-32); Calcium, Blood 9.3 mg/dL (8.5-10.1); Chloride, Blood 100 mmol/L (98-108); Creatinine, Blood 1.09 mg/dL (0.40-1.00); Globulin, Blood 4.3 g/dL (2.2-4.0); Glomerular Filtration Rate 56 (60-); Glucose, Blood 99 mg/dL (70-99); Magnesium, Blood 2.4 mg/dL (1.6-2.4); Sodium, Blood 144 mmol/L (136-145); Total Protein, Blood 7.7 g/dL (6.4-8.2); Troponin I <0.015 ng/mL (0.000-0.040)
[2018-07-30] MEDS ORDERED: CENTRUM ADULTS1 EACH PO (04:12)
[2018-07-30] MEDS ORDERED: CHOL10002 PO (04:17)
[2018-07-30 05:21] LABS: PO2 Arterial 93.1 mmHg (80-100); pH Blood Arterial 7.32 (7.35-7.45)
[2018-07-30 05:23] LABS: PCO2 Arterial 86.8 mmHg (35-45)
--- NOTE | 2018-07-30 05:52 | NUR ---
PT REPORT RECEIVED VIA TELEPHONE WITH OFFGOING NURSE, ROSANA PELAYO. WAITING FOR PT TRANSFER FROM ED TO ICU AT THIS TIME.
--- NOTE | 2018-07-30 06:39 | NUR ---
PT TRANSFER / ASSUMING CARE PT TRANSFERRED FROM ED TO ICU AT 0603 THIS AM. PT ANXIOUS, RESPONDS TO VERBAL STIMULI, SPONT OPEN EYES, FOLLOWING COMMANDS, NOT NODDING HEAD Y/N TO QUESTIONS, DEC LOC. PT LINTON. WEAKNESS NOTED. PT TURNS SELF IN BED. LUNGS SLIGHTLY COARSE. PT TRANSFERRED ON HOME VENT. VENT SETTINGS: AC 12, TV 500, PEEP 5, 4L UPON ARRIVAL TO ICU. TITRATE OXYGEN TO 8L NC D/T OXY SAT <90%. CURRENTLY OXY SAT >90%. RR 20'S. SPUTUM SAMPLE SENT. SX VIA TRACH: LARGE AMOUNTS OF THICK YELLOW SECRETIONS. CHRONIC TRACH AND VENT AT HOME. AFEBRILE. NSR TO ST. HYPERTENSIVE UPON TRANSFER TO ICU. INCREASED HR AND BP NOTED WITH ANXIETY. CURRENTLY BP STABLE - SEE VS FS. PIV X1. SECOND PIV IN LEFT HAND D/C D/T NOT PATENT. PIERCE RAM ATTEMPTING TO INSERT SECOND PIV AT THIS TIME. SCD'S APPLIED. PT'S FATHER, DEWYE, JUST WALKED INTO ICU AT THIS TIME. 1L NS BOLUS INFUSING AT THIS TIME. CALL LIGHT WITHIN PT REACH. WILL CONT TO MONITOR PT AND WILL PROVIDE BEDSIDE REPORT TO ONCOMING NURSE THIS AM.
--- NOTE | 2018-07-30 07:39 | NUR ---
Recieved report from Trini PELAYO. Patient supine in bed with HOB. She arouses very little and with pain and opens eye occassionally to voice. She is on her home vent with setting AC 12, TV 500, peep 5, was at 8L blled in and RT just turned down to 3L as at home and she is tolerating well. She has 20ga RH and is infusing bolus from ER. She was hypotensive in the 90's systolic and once in t he 80 and MAP has been >62. She has bilateral SCD's in place. Father has arrived and is at bedside. Table Machine Operator consult call in by Trini PELAYO.
--- NOTE | 2018-07-30 09:53 | NUR ---
Patient being placed on hospital vent. Dr Savage has been by to see patient and will let Dr Garcia see patient first. Sent influenza swab in on patient. she is starting to open eyes better. Still holding PO meds until more awake. Systolic 90-100 and HR 60-70's and sats 90-100 on current settings.
[2018-07-30 10:07] LABS: Influenza A Negative (NEGATIVE); Influenza B Negative (NEGATIVE)
--- NOTE | 2018-07-30 11:10 | NUR ---
Hospital vent settings are AC18, TV 460, Fio2 40%, PEEP 5.0 and sast mid 90%'s. Dr Resendiz by to see her and ordered bolus and then will look at maintanance fluids and VBG. She awakens and then falls back to sleep. Family at bedside. systolic 80's with MAP >65.
[2018-07-30 11:21] LABS: Base Excess Venous 15.3 mmol/L; Bicarbonate Venous 37.2 mmol/L (24.0-30.0); PO2 Venous 62.6 mmHg (38-42); pH Blood Venous 7.47 (7.34-7.37)
--- NOTE | 2018-07-30 13:13 | NUR ---
Patient finished bolus and will start another one, it was not success. Started on Levophed after accesseing mediprt right chest with 1.0 inch morocho neddle. Levophed at 5mcg/hr. Systolic was 68 when starting Levophed and is currently 128, HR 50's. She was able to take her PO bills slowly with cranberry juice and tolerated well, Father still at bedside
--- NOTE | 2018-07-30 15:19 | NUR ---
Patient has been resting. After 3rd bolus, i was able to decrease Levophed to 2mcg and systolic low 100's, HR 50-60's Occassional thick secretions after she coughs. No other significant changes with patient.
--- NOTE | 2018-07-30 17:30 | NUR ---
Patient has been resting in bed. She remains on Levophed 2mcg and systolics >120. Trach care done and she still has thick secretions when you can get her to cough. It takes quiet abit to arouse her and the she is wide awake. VSS. No changes on vent settings and she sats mid 90%'s. She had over 2000 ml in and her attends is dry.
--- NOTE | 2018-07-30 19:16 | NUR ---
father not at bedside review of this admissionwith nursing will review labs and pulmonary plan of care for patient.
--- NOTE | 2018-07-30 21:27 | NUR ---
PATIENT RESTING QUIETLY, AWAKENS TO VERBAL STIMULI. TRACH MIDLINE WITH DRESSING CD&I. VENT SET AT AC18 TV 460 PEEP 5 FIO2 30% LUNG SOUNDS CLEAR AFTER STRONG COUGH WITH THICK WHITE SPUTUM. LEVOPHED TITRATED TO 1 MCG, DOCTOR YARI PROVIDING NEW ORDERS AND NS STARTED 125/HR FOR 1 LITER AND WILL ATTEMPT TO GET LEVOPHED OFF. ZENDEJAS PLACED TO KEEP CLOSE EYE ON I&O DUE TO OCCASIONAL INCONTINENCE.
[2018-07-31 01:17] LABS: Source, Urine Catheter
[2018-07-31 01:19] LABS: Bilirubin, Urine Neg (Neg); Blood, Urine Neg (Neg); Glucose Qualitative, Urine Neg (Neg); Ketones, Urine Neg (Neg); Leukocyte Esterase, Urine 1+ (Neg); Nitrite, Urine Neg (Neg); Protein, Urine Neg (Neg); Specific Gravity, Urine 1.005 (1.003-1.022); Urobilinogen, Urine NORM (Normal)
[2018-07-31 01:25] LABS: Appearance, Urine Clear (Clear); Color, Urine Yellow (P-Yellow)
[2018-07-31 01:26] LABS: Bacteria Mod /hpf; Red Blood Cells, Urine 0-2 /hpf (0-2); Squamous Epithelial Cells Not Seen /hpf (Few); White Blood Cells, Urine 0-2 /hpf (0-5)
[2018-07-31 04:44] LABS: Base Excess Venous 8.7 mmol/L; Bicarbonate Venous 31.3 mmol/L (24.0-30.0); PCO2 Venous 49.2 mmHg (38-42); PO2 Venous 51.6 mmHg (38-42); pH Blood Venous 7.43 (7.34-7.37)
[2018-07-31 04:51] LABS: BASOPHILS ABSOLUTE AUTO 0.01 K/mm3 (0.00-0.23); BASOPHILS PERCENT AUTO 0 % (0-2); EOSINOPHILS PERCENT AUTO 0 % (0-6); Hematocrit 32.8 % (33.0-51.0); Hemoglobin 9.7 g/dL (11.5-16.0); IMMATURE GRAN ABSOLUTE AUTO 0.03 K/mm3 (0.00-0.10); IMMATURE GRAN PERCENT AUTO 0 % (0-1); LYMPHOCYTES ABSOLUTE AUTO 0.57 K/mm3 (0.84-5.20); LYMPHOCYTES PERCENT AUTO 6 % (21-46); MONOCYTES PERCENT AUTO 1 % (4-13); Mean Corpuscular HGB 27.6 pg (26.0-34.0); Mean Corpuscular HGB Conc 29.6 g/dL (31.5-36.5); Mean Platelet Volume 11.3 fL (9.1-12.4); NEUTROPHILS PERCENT AUTO 92 % (41-73); Platelet Count 187 K/mm3 (150-400); RDW Coefficient Variation 15.4 % (11.7-14.2); RDW Standard Deviation 52.5 fL (35.1-46.3); Red Blood Cell Count 3.51 M/mm3 (3.80-5.20); White Blood Cell Count 9.11 K/mm3 (4.00-11.30)
[2018-07-31 04:52] LABS: Mean Corpuscular Volume 93 fL (80-100)
[2018-07-31 05:11] LABS: Alanine Aminotransfer (ALT/SGP 9 U/L (12-78); Albumin, Blood 2.5 g/dL (3.4-5.0); Albumin/Globulin Ratio 0.7 (0.8-1.8); Alk Phos 75 U/L (50-136); Anion Gap 5 mmol/L (6-16); Aspartate Aminotrans (AST/SGOT 6 U/L (12-37); Bilirubin, Total 0.3 mg/dL (0.1-1.0); Blood Urea Nitrogen 21 mg/dL (8-24); Bun/Creatinine Ratio 30.5 (12.0-20.0); CO2, Blood 32 mmol/L (21-32); Calcium, Blood 8.2 mg/dL (8.5-10.1); Chloride, Blood 109 mmol/L (98-108); Creatinine, Blood 0.69 mg/dL (0.40-1.00); Globulin, Blood 3.4 g/dL (2.2-4.0); Glomerular Filtration Rate >60 (60-); Glucose, Blood 134 mg/dL (70-99); Magnesium, Blood 2.1 mg/dL (1.6-2.4); Potassium, Blood 4.1 mmol/L (3.5-5.5); Sodium, Blood 146 mmol/L (136-145); Total Protein, Blood 5.9 g/dL (6.4-8.2); Vancomycin, Trough 11.9 ug/mL (5.0-10.0)
--- NOTE | 2018-07-31 07:02 | NUR ---
PATIENT SLEEPING OFF AND ON T/O NIGHT. REPOSITIONING SELF IN BED FOR COMFORT. TRACH MIDLINE WITH VENT AT AC18, TV460, PEEP5, FIO2 35% BIOX 88-94% PATIENT ABLE TO TAKE PO WITHOUT DIFFICULTY. ONLY TAKING SIPS WITH HER PILLS. LEVOPHED DRIP OFF SEE FLOW SHEET FOR TITRATIONS.
--- NOTE | 2018-07-31 07:47 | NUR ---
Both IV's dressings intact and flushed and SL. She has newly placed taylor draining to gravitysmall amount yellow urine. She is able to communuicate her needs. She was medicated prior to this shift with 25 mcg Fentanyl. She MAEW. She has bilateral SCD's in place. She remains off levophed from klast night and systolic 119 and HR 80's. She stated that she wanted to wait a little while before taking am meds.
--- NOTE | 2018-07-31 07:53 | NUR ---
Recieved report from Alma Rosa PELAYO. Patient laying in bed on left side with HOB at 30 degrees. She has Shiley 6.0 XL distal trach and will be changed tomorrow. Her vent settings are AC18, TV 460, FiO2 35% and PEEP 5.0 with stats 97%. She has mediport right upper chest accessed, dressing intacft and site WNL's and is infusing NS TKO and vanco. She also has 20ga IV in RH and another 20ga IV in CIARA both dressings intact and sites WNL's and were flushed and SL'd. She has newly placed taylor last night draining to gravity small amounts of yeloow urine. She is able to communicate her needs. She was medicated just prior to my shift and is resting currently. She has bilateral SCD's in place. She remains off levophed since last night and systolic 119 and HR 80's. She has stated that she wants to wait on taking her am meds until later.
--- NOTE | 2018-07-31 10:34 | NUR ---
Patient awake and dad has arrived. Repositioned patient and set up breakfast and she tolerated am meds one at a time. Turned hr down to 30% and she asked to have cuff deflated and doing well. She called me back in as she stated she was plugged up. I levaged her trach and suctioned several times still not working. Called RT and they levaged some more and then bagged for a little bit. Placed on nasal cannula teporarily at 6L. recieved 1mg Ativan order from Dr Burgos and now she has been placed back on hospital vent at original am settings and is getting more relaxed, sats 93%. Keeping close monitor.
--- NOTE | 2018-07-31 11:50 | NUR ---
Patient has been resting and ativan has worked well. her RR down 16-18 and sats 97% . Dr Burgos was just in room and no new orders. Father went home to get new circuit for home vent and they will want to transition her back to her vent. Her systolic 126 and HR 80-90's.
--- NOTE | 2018-07-31 11:54 | NUR ---
Dr Burgos has placed on spontaneous at 1142 02/10
--- NOTE | 2018-07-31 19:30 | NUR ---
PATIENT AWAKE EATING A SMALL AMT OF HER DINNER. TRACH MIDLINE WITH HOME VENT IN PLACE WITH OXYGEN AT 10L/ BLEED IN, OXYGEN TITRATED TO 8L. SUCTIONING MOD AMT THICK WHITE SPUTUM. PATIENT VERBALIZED THAT SHE IS FEELING BLOATED, ABD ROUND AND SOFT, HAD A LARGE BM EARLIER TODAY. PATIENT C/O BACK AND NECK PAIN AND REQUESTING A "PAIN SHOT". PATIENT MEDICATED WITH ATIVAN PO AND FENTANYL FOR ANXIETY AND PAIN. PATIENT ABLE TO ASSIST WITH REPOSITIONING UP IN BED AND IS ABLE TO REPOSITION SELF IN BED FOR COMFORT.
--- NOTE | 2018-07-31 19:46 | NUR ---
ASSUMED CARE OF PT AT 1200. PT SLEPT MOST OF SHIFT. PT'S FATHER AT BEDSIDE OFF AND ON T/O SHIFT. PT WAS MEDICATED FOR PAIN 8 TO BACK AND NECK WITH FENT 50MCG X1. PT STATED THE PAIN MED HELPED. PT PLACED ON HOME VENT PER ORDERS BY RT AT 1430. HOME VENT SETTINGS:SIMV, RATE 12, TV 500, W 3L O2 BLEED IN. PT ASSISTED LATER UP TO COMMODE/SBA. PT HAD EXPRESSED INCREASED ANXIETY WITH EXERTION AND ASKED THAT SHE WEAR N/C ALONG WITH HOME VENT. PT PASSED XLARGE SOFT FORMED BM. PT ASSISTED BACK TO BED, DECLINED OFFER TO SIT UP IN CHAIR. PT DECLINED LUNCH WELL BUT ASKED TO EAT DINNER. DR SOLIS CALLED; PT REQUESTED PRN MED FOR ANXIETY. NEW ORDER FOR PO ATIVAN.
[2018-08-01 05:15] LABS: BASOPHILS ABSOLUTE AUTO 0.01 K/mm3 (0.00-0.23); BASOPHILS PERCENT AUTO 0 % (0-2); EOSINOPHILS PERCENT AUTO 0 % (0-6); Hematocrit 36.4 % (33.0-51.0); Hemoglobin 10.6 g/dL (11.5-16.0); IMMATURE GRAN ABSOLUTE AUTO 0.04 K/mm3 (0.00-0.10); IMMATURE GRAN PERCENT AUTO 0 % (0-1); LYMPHOCYTES PERCENT AUTO 5 % (21-46); MONOCYTES ABSOLUTE AUTO 0.14 K/mm3 (0.16-1.47); MONOCYTES PERCENT AUTO 1 % (4-13); Mean Corpuscular HGB Conc 29.1 g/dL (31.5-36.5); Mean Corpuscular Volume 96 fL (80-100); Mean Platelet Volume 11.2 fL (9.1-12.4); NEUTROPHILS ABSOLUTE AUTO 9.75 K/mm3 (1.96-9.15); NEUTROPHILS PERCENT AUTO 93 % (41-73); Platelet Count 191 K/mm3 (150-400); RDW Coefficient Variation 15.9 % (11.7-14.2); RDW Standard Deviation 56.1 fL (35.1-46.3); Red Blood Cell Count 3.78 M/mm3 (3.80-5.20); White Blood Cell Count 10.44 K/mm3 (4.00-11.30)
[2018-08-01 05:32] LABS: Anion Gap 2 mmol/L (6-16); Blood Urea Nitrogen 22 mg/dL (8-24); Bun/Creatinine Ratio 27.6 (12.0-20.0); CO2, Blood 34 mmol/L (21-32); Calcium, Blood 8.5 mg/dL (8.5-10.1); Chloride, Blood 110 mmol/L (98-108); Glomerular Filtration Rate >60 (60-); Glucose, Blood 122 mg/dL (70-99); Magnesium, Blood 2.3 mg/dL (1.6-2.4); Phosphorus, Blood 2.8 mg/dL (2.5-4.9); Potassium, Blood 4.2 mmol/L (3.5-5.5); Sodium, Blood 146 mmol/L (136-145); Vancomycin, Trough 17.1 ug/mL (5.0-10.0)
--- NOTE | 2018-08-01 06:49 | NUR ---
SUMMARY PATIENT SLEEPING OFF AND ON T/O NIGHT. REMAINS ON HOME VENT SUCTIONING SEVERAL TIMES OBTAINING THICK WHITE SPUTUM. TRACH IN PLACE AND MIDLINE. PATIENT REPOSITIONING SELF IN BED FOR COMFORT. ASKING FOR PAIN MEDICATION FREQUENTLY FOR CHRONIC BACK AND NECK PAIN. PATIENT ALSO GIVEN ATIVAN PO FOR ANXIETY. PATIENT BARBARA PO WITHOUT DIFFICULTY.
--- NOTE | 2018-08-01 11:35 | NUR ---
PT SLEEPING SOUNDLY THIS AM AT 0730. PT C/O CHRONIC PAIN TO BACK AND NECK 12/16. FENT GIVEN LATER IN AM WHEN PT WAS AWAKE AND SATS WERE STABLE. PT SATS UP IN BED LEANING TO LEFT SIDE FOR AM MEDS AND BREAKFAST. PT ENCOURAGED TO GET OOB INTO CHAIR; PT DECLINED STATING SHE IS UNABLE TO SIT IN A CHAIR D/T PAIN AND SITS IN BED AT AN ANGLE AT HOME. SATS DROPPED SLIGHTLY AFTER BREAKFAST PT WAS ASLEEP. PT HESITANT TO INFLATE CUFF, ENCOURAGED BY RT, CUFF THEN INFLATED WHICH IMPROVED SATS >93%. AROUND 1100 PT C/O ITCHING TO ARMS, NO RASH NOTED. DR SOLIS NOTIFIED; BENADRYL ORDERED. DR SOLIS IN TO SEE PT AT 1130; PT NOW PCU STATUS.
--- NOTE | 2018-08-01 15:06 | NUR ---
PT TRANSFERED TO PCU 5 WITH HOME VENT ON 3L O2 BLEED IN. LEFT HAND IV DC'D; NOT PATENT. CIARA IV PATENT AND FLUSHED. URINE EMPTIED AND CHARTED. PT GIVEN ATIVAN 1MG PO IN ATICIPATION OF INNER CANNULA CHANGE TO BE DONE BY RT SHORTLY. REPORT GIVEN TO ETTA PELAYO
--- NOTE | 2018-08-01 18:12 | NUR ---
DAIJA SAT HERSELF UP AND ATE HALF OF HER DINNER AND IS WORKING ON A [employer]. HER FATHER WAS IN TO SEE HER. SHE WAS ABLE TO SET HERSELF UP AND EAT AND TURN HERSELF OVER ON HER OTHER SIDE, SHE STATES SHE IS DOING OK. CALL LIGHT IN REACH.
--- NOTE | 2018-08-02 01:34 | NUR ---
ASSUMED CARE OF PATIENT AT APPROXIMATELY 1910 FROM ETTA Younger RN. PATIENT ALERT AND ORIENTED X4; DROWSY AT TIMES. PATIENT REPORTS PAIN IN HER LOWER BACK AND RIGHT SIDE; REPORTS SHE MAY HAVE A PINCHED NERVE; REFUSED TYLENOL; MEDICATED PER EMAR; K-PAD APPLIED; REPOSISTIONED AND WARM BLANKETS APPLIED. REPORTED PATIENT IS MAX ASSIST OUT OF BED; PATIENT STOOD AT SIDE OF BED WHILE THIS RN REMOVED EXTRA BEDDING; STEADY. PATIENT ANXIOUS AT TIMES; REQUESTED PRN AXIETY MEDICATION. PATIENT DENIES NUMBNESS, TINGLING, DIZZINESS AND NAUSEA. PATIENT ON HOME VENT TRACH; 3-4 LPM BLEED IN; INLINE SUCTION USED. PATIENT HAD CALLED TO REPORT SHE WOKE UP WITH SUCTION LINE IN HER HAND AND UNPLUGGED. MEDIPORT ACCESSED AND INFUSING NS TKO BEFORE SHIFT CHANGE. URINARY CATHETER DRAINING CLEAR YELLOW URINE. SCDS IN PLACE. PATIENT CURRENTLY SLEEPING IN BED; CALL LIGHT IN REACH; BED IN LOWEST POSISTION; BED ALARM ON; WILL CONTINUE TO MONITOR AND ASSESS UNTIL END OF SHIFT.
--- NOTE | 2018-08-02 03:15 | NUR ---
ASSUMED CARE OF PATIENT AT APPROXIMATELY 1905 FROM ETTA Younger RN. PATIENT ALERT AND ORIENTED X4; SBA TO BEDSIDE COMMODE. PATIENT REPORTS PAIN IN HER BACK, NECK AND HEAD; MEDICATED PER EMAR; REPORT PAIN MANAGED. NSR ON TELE; OXYGEN SATURATION ABOVE 90% ON 3-4LPM VIA NC OR BIPAP. PATIENT HAS BEEN ON BIPAP MOST OF THE NIGHT. PATIENT DENIES NUMBNESS, TINGLING, DIZZINESS AND NAUSEA. PATIENT ANXIOUS AT TIMES; DYSPNEA WITH AMBULATION AND AT REST AT TIMETS. 2X PIV S/L. PATIENT CURRENTLY SLEEPING IN BED; CALL LIGHT IN REACH; BED IN LOWEST POSISTION; BED ALARM ON; WILL CONTINUE TO MONITOR AND ASSESS UNTIL END OF SHIFT.
[2018-08-02 04:00] LABS: BASOPHILS PERCENT AUTO 0 % (0-2); EOSINOPHILS PERCENT AUTO 0 % (0-6); Hemoglobin 10.7 g/dL (11.5-16.0); IMMATURE GRAN ABSOLUTE AUTO 0.02 K/mm3 (0.00-0.10); IMMATURE GRAN PERCENT AUTO 0 % (0-1); LYMPHOCYTES ABSOLUTE AUTO 0.39 K/mm3 (0.84-5.20); LYMPHOCYTES PERCENT AUTO 4 % (21-46); MONOCYTES ABSOLUTE AUTO 0.15 K/mm3 (0.16-1.47); MONOCYTES PERCENT AUTO 2 % (4-13); Mean Corpuscular HGB 27.9 pg (26.0-34.0); Mean Corpuscular HGB Conc 28.9 g/dL (31.5-36.5); Mean Corpuscular Volume 97 fL (80-100); Mean Platelet Volume 11.3 fL (9.1-12.4); NEUTROPHILS PERCENT AUTO 94 % (41-73); Platelet Count 197 K/mm3 (150-400); RDW Coefficient Variation 15.7 % (11.7-14.2); RDW Standard Deviation 55.8 fL (35.1-46.3); Red Blood Cell Count 3.83 M/mm3 (3.80-5.20); White Blood Cell Count 9.26 K/mm3 (4.00-11.30)
[2018-08-02 04:18] LABS: Anion Gap 3 mmol/L (6-16); Blood Urea Nitrogen 23 mg/dL (8-24); Bun/Creatinine Ratio 27.4 (12.0-20.0); CO2, Blood 34 mmol/L (21-32); Calcium, Blood 8.3 mg/dL (8.5-10.1); Chloride, Blood 109 mmol/L (98-108); Creatinine, Blood 0.84 mg/dL (0.40-1.00); Glomerular Filtration Rate >60 (60-); Glucose, Blood 129 mg/dL (70-99); Sodium, Blood 146 mmol/L (136-145)
--- NOTE | 2018-08-02 10:02 | NUR ---
BEGINNING OF SHIFT Assumed care of pt at 0700. Bedside report recieved from Estefani PELAYO. Pt on home ventilator with 3 LPM NC. Able to vocalize needs, however can only speak 2-3 words at a time. Pt's pain control discussed with Dr Savage. This RN spoke to patient, educating her on the need to minimize IV pain medication. Pt protested. Will continue to reinforce. Pt forgetful at times, often repeating requests that have already been addressed. Bed in lowest position. Call light in reach. Pt denies need at this time.
--- NOTE | 2018-08-02 17:20 | NUR ---
SHIFT SUMMARY No acute changes t/o shift. Pt did not require suctioning by this RN this shift. Pt verbalizes concern that Niacin is causing her to get itchy. Itching resolved with one dose of benadryl. Pt verbalizes discontent about fentanyl being discontinued and pleads "Please give me one more dose". This RN reinforces that fentanyl was discontinued as pt's pain is chronic and pt stated she does not take medications for pain management at home. This RN told the pt that the pt's concerns would be discussed with Dr Savage. Call placed to Dr Savage. No new orders given. Pt updated. Will continue to monitor until care handoff and bedside report with oncoming RN.
--- NOTE | 2018-08-02 23:32 | NUR ---
PM NOTE. ASSUMED CARE OF PT APROX 1900, PT IS A&Ox4, PT WAS ADMITTED DUE TO ACUTE ON CHRONIC RESP FAILURE, PT HAS HOME VENT WITH 3L BLEED IN. PT WAS VERY AGITATED THAT THE PROVIDER HAD STOPPED THE IV FENTANYL, SHE STATED THAT "OXY DOSEN'T WORK FOR ME, IT HURTS MY FEELING THEY JUST WANT ME TO SUFFER IN PAIN." THIS RN ASKED THE PT WHAT SHE DOES AT HOME FOR THIS ISSUE, PT MENTIONED THAT HER DAD WILL GIVE HER BACK RUBS AND USE HEATING PADS, THE PT ALREADY HAD A HEATING PAD, THIS RN OFFERED AND GAVE PT A BACK RUB. TELE INTACT, NSR IN THE 80'S PER ASSEMBLER HANDBAGS, PT'S BP 134/71, TRACE EDEMA NOTED TO THE PT'S BLLE. PT'S L/S DIM T/O, PT SELF SUCTIONS HER TRACH AND MONITORS HER HOME VENT. BT PRESENT AND HYPERACTIVE, ABD IS SOFT AND NONTENDER TO PALP. CALL LIGHT IN REACH, BED IS LOCKED AND LOW WILL CONTINUE TO MONITOR.
--- NOTE | 2018-08-03 05:46 | NUR ---
SHIFT SUMMARY. NO ACUTE CHANGES NOTED THIS SHIFT. PT'S VS HAVE BEEN STABLE. PT C/O OF "UNCONTROLLED PAIN." PT HAS BEEN MEDICATED PER EMAR, PROVIDED WITH BACK RUBS MULTIPLE TIMES THIS SHIFT. PT IS ANXIOUS TO GO HOME TODAY. CALL LIGHT IN REACH, BED IS LOCKED AND LOW WILL CONTINUE TO MONITOR UNTIL REPORT IS GIVEN TO ONCOMING RN.
[2018-08-03 08:33] LABS: Vancomycin, Random 18.3 ug/mL
--- NOTE | 2018-08-03 16:48 | NUR ---
SHIFT SUMMARY Assumed care of pt at 0845. Report received from Noreen PELAYO. Pt on home ventilator. When this RN entered pt's room to give AM meds, pt became anxious and short of breath. Pt sat up in bed, mouthing "help". Pt demanded this RN increases her O2. SpO2 90-95%. Pt also requested suctioning. No secretions were produced. This RN notified RT Oralia. RT reinforces that pt's O2 saturations are acceptable. Attempts made to redirect pt and ease anxiety. Pt states she wants ativan. This RN states plan to give PO ativan. Pt mouths "No, give me the shot." This RN educates pt that only PO is ordered and IV cannot be given until an order is obtained from the provider, it would be most efficient to utilze the already ordered medication. Pt agitated. Pt then mouthed "take this off" and pointed to ventilator circiut connected to her trach. This RN refused to fulfill the pt's request, as the pt was claiming to be in respiratory distress. The pt had her father remove the ventilator circiut from her trach. Pt's SpO2 dropped to 72%, but pt's anxiety descalated. Pt's father then reattached the ventilator circuit to the pt's trach. Pt's O2 saturations recovered in less than one minute. Pt has had no additional episodes of anxiety or respiratory distress. RT Oralia has verbalized concern several times regarding pt's trach cuff being found deflated. When Dr Savage when in room to discuss plan of care with pt, pt became agitated and demanded IV fentanyl. Several attempts made by this RN and Dr Savage to educate on chronic pain management. This RN educated pt that not giving fentanyl is part of the plan for pt's imminent discharge home. Pt verbalizes understanding that fentanyl is not being given as she will not be taking it home and pt repeatedly mouths "But I'm in the hospital, so why can't I get it while I'm here." Pt had two visitors in the room at this time, neither contributed to the discussion. Will continue to closely monitor until care handoff and bedside report with oncoming RN.
--- NOTE | 2018-08-03 19:55 | NUR ---
ASSESSMENT PT SITTING UP IN BED PLAYING GAMES ON PHONE. PT MOVING SELF AROUND AND SITTING ON EDGE OF THE BED. LUNGS DECREASED THROUGHOUT ON HOME VENT AT 3 LITERS. HEART RATE REGULAR. BP STABLE. PT C/O PAIN TO NECK AND BACK. NOT TIME FOR PAIN MEDS YET. PT REQUESTED ATIVAN-GIVEN. MEDIPORT TO RIGHT CHEST WALL WITH NS AT TKO, SITE CLEAR. IV LEFT UPPER ARM SALINE LOCKED, FLUSHED WITHOUT DIFFICULTY. WAITING FOR PT TO VOID AFTER ZENDEJAS CATH DC'D.
--- NOTE | 2018-08-03 20:15 | NUR ---
HS MEDS PT SITTING ON BSC. HS MEDS GIVEN AND IV ANTIBIOTIC STARTED. PT GETTING SELF TO AND FROM BSC.
--- NOTE | 2018-08-03 21:52 | NUR ---
REPORT GIVEN TO SORIN PELAYO
--- NOTE | 2018-08-03 21:55 | NUR ---
Assumed care of pateint at approx 2150, report recieved from Chary PELAYO.
--- NOTE | 2018-08-04 05:56 | NUR ---
SHIFT SUMMARY: PATIENT COMPLIANT THIS SHIFT, TURNING SELF IN BED, VSS, NO ANXIETY OR ANGER ABOUT THE TIMING OF HER PAIN OR ANXIETY MEDICATIONS. PATIENT USING CALL LIGHT APPROPRIATLY AND USING BSC. MONITORING CLOSELY, BED LOW AND LOCKED, CALL LIGHT WITHIN REACH.
[2018-08-04 06:10] LABS: BASOPHILS ABSOLUTE AUTO 0.02 K/mm3 (0.00-0.23); BASOPHILS PERCENT AUTO 0 % (0-2); EOSINOPHILS ABSOLUTE AUTO 0.46 K/mm3 (0.00-0.68); EOSINOPHILS PERCENT AUTO 3 % (0-6); Hematocrit 39.2 % (33.0-51.0); Hemoglobin 11.2 g/dL (11.5-16.0); IMMATURE GRAN ABSOLUTE AUTO 0.03 K/mm3 (0.00-0.10); IMMATURE GRAN PERCENT AUTO 0 % (0-1); LYMPHOCYTES ABSOLUTE AUTO 1.39 K/mm3 (0.84-5.20); LYMPHOCYTES PERCENT AUTO 10 % (21-46); MONOCYTES PERCENT AUTO 6 % (4-13); Mean Corpuscular HGB Conc 28.6 g/dL (31.5-36.5); Mean Corpuscular Volume 98 fL (80-100); Mean Platelet Volume 11.2 fL (9.1-12.4); NEUTROPHILS ABSOLUTE AUTO 11.54 K/mm3 (1.96-9.15); NEUTROPHILS PERCENT AUTO 81 % (41-73); Platelet Count 181 K/mm3 (150-400); RDW Coefficient Variation 15.8 % (11.7-14.2); RDW Standard Deviation 57.2 fL (35.1-46.3); White Blood Cell Count 14.24 K/mm3 (4.00-11.30)
[2018-08-04 06:23] LABS: Anion Gap 0 mmol/L (6-16); Blood Urea Nitrogen 14 mg/dL (8-24); Bun/Creatinine Ratio 17.2 (12.0-20.0); CO2, Blood 36 mmol/L (21-32); Calcium, Blood 8.5 mg/dL (8.5-10.1); Chloride, Blood 109 mmol/L (98-108); Creatinine, Blood 0.81 mg/dL (0.40-1.00); Glomerular Filtration Rate >60 (60-); Glucose, Blood 78 mg/dL (70-99); Potassium, Blood 3.8 mmol/L (3.5-5.5); Sodium, Blood 145 mmol/L (136-145)
--- NOTE | 2018-08-04 10:17 | NUR ---
Assumed Care: Assumed care of pt at approx 0700. VSS. In no apparent sign of distress. Pt is A&Ox4. Calls appropriately and repositions self. C/o chronic back, neck and abd pain, but is not due for pain medications at this time. Pt has trach that is hooked up to home vent SIMV mode, PEEP 5 with BUR of 12. and is also wearing 3L O2 via NC. Denies any SOB or cough. C/o some mild nausea. See shift assessment for detailed assessment. Pt transfers to bedside commode independently. Pt states that she is feeling much better and is looking forward to going home today. Pt is currently resting in bed with call light within reach. Denies any further questions, complaints or requests at this time. Will continue to monitor.
--- NOTE | 2018-08-04 17:30 | NUR ---
Shift Summary: No acute changes since initial shift assessment. VSS. In no apparent sign of distress. Pt is A&Ox4. Pt signed release of responsibility form regarding pt and pt father inflating and deflating trach cuff against RT recommendations and titrating oxygen against RT and RN recommendations. Pt at one time found to have O2 saturations in the 80's and was titrating oxygen from 3L-6L and inflating/deflating/removing trach. Pt self suctions trach and refuses instruction on how to manage resp status/trach, refuses oral care and other trach care. Pt has not experienced any significant changes today. Denies any acute complaints or events t/o the shift. Called order for "high risk for readmission program" to RT Abdiaziz and per RT Abdiaziz, they will call pt at home to enroll in program. Per [place] senior program planner Zoie Ramos RN, pt will have needed abx delivered overnight, which will delay her discharge home until tomorrow morning. No acute changes on tele. Pt currently on same home vent settings w/3L bleed in. Pt currently resting in bed with call light within reach. Denies any further questions, complaints or requests at this time. Will continue to monitor until report is given to stacy PELAYO.
[2018-08-04 22:07] LABS: Vancomycin, Trough 21.1 ug/mL (5.0-10.0)
--- NOTE | 2018-08-05 06:43 | NUR ---
shift summary: no new changes with patient, still inflating and deflating cuff at will. Troponins high, amount adjusted by pharmacy. vss, call light within reach, bed low and locked
--- NOTE | 2018-08-05 07:52 | NUR ---
Assumed Care: Assumed care of pt at approx 0700. VSS. In no apparent sign of distress. Pt is A&Ox4. See shift assessment for detailed assessment. Plan is for pt to DC home today once AM ABX complete. Pt self suctions and managing trach. Pt cleansed around trach this AM and already received breathing treatment. See shift assessment for detailed assessment. Pt is feeling good about going home today. Denies oral care/AM care of bed bath this AM. Currently resting in bed with call light within reach. Denies any further questions, complaints or requests at this time. Will continue to monitor until DC.
[2018-08-05] MEDS ORDERED: FOLI1 PO (08:56)
[2018-08-05] MEDS ORDERED: LACTOBACILLUS PO (09:04)
[2018-08-05] MEDS ORDERED: MIRALAX17 GM PO (09:05)
[2018-08-05] MEDS ORDERED: CEFTAZIDIME IV (09:07)
[2018-08-05] MEDS ORDERED: VANCOMYCIN IV (09:08)
--- NOTE | 2018-08-05 15:58 | NUR ---
Shift Summary No acute changes since initial shift assessment. In no apparent sign of distress. No changes made to HM vent settings. Called prescription to [facility] in [place] and faxed change in iv vancomycin prescription to home delivery program set up with DC planning. No acute changes or events on tele. Pt denies any acute events or changes t/o the shift. Discharged via wheelchair and accompanied by VISCOSE CELLAR WORKER and father. Pt sent home with all belongings. Flushed heparin with 50 units of heparin and changed cap - sent pt home with this documentation for HH. Pt denies further questions, complaints or requests at time of discharge.
--- NOTE | 2018-08-05 16:10 | NUR ---
DC home at approx 1130.
== END 2018-08-05 12:05 | disposition home or self-care (01) | DRG 207 ==
LOC: ER 03:34 → ICUW 04:51 → PCU 08-01 14:45
PROVIDERS: Emergency Medicine; Internal Medicine; Internal Medicine Critical Care Medicine; Internal Medicine Pulmonary Disease; ADMIT Hospitalist
PROC: 5A1955Z Respiratory Ventilation, Greater than 96 Consecutive Hours (ICD-10-PCS; principal; 2018-07-30)
PROC: 3E033XZ Introduction of Vasopressor into Peripheral Vein, Percutaneous Approach (ICD-10-PCS; 2018-07-30)
DX: J15.212 Pneumonia due to Methicillin resistant Staphylococcus aureus (principal); J96.22 Acute and chronic respiratory failure with hypercapnia; G92 Toxic encephalopathy; J96.21 Acute and chronic respiratory failure with hypoxia; J44.1 Chronic obstructive pulmonary disease with (acute) exacerbation; J44.0 Chronic obstructive pulmonary disease with (acute) lower respiratory infection; Z93.0 Tracheostomy status; M81.0 Age-related osteoporosis without current pathological fracture; D63.8 Anemia in other chronic diseases classified elsewhere; I10 Essential (primary) hypertension; Z87.891 Personal history of nicotine dependence; G25.81 Restless legs syndrome; Z79.891 Long term (current) use of opiate analgesic; F41.8 Other specified anxiety disorders; G89.29 Other chronic pain; Z86.14 Personal history of Methicillin resistant Staphylococcus aureus infection; Z76.5 Malingerer [conscious simulation]
CPT/HCPCS: 31720; 36415; 36600; 51702; 71045; 80048; 80053; 80202; 81001; 82330; 82803; 83735; 83880; 84100; 84145; 84484; 85025; 87070; 87077; 87086; 87186; 87205; 87804; 93005; 93010; 94002; 94003; 94640; 94762; 96374; 99285-25; J0713; J1642; J1650; J2060; J2920; J2930; J3010; J3370; J7030; J7040; J7050; J7060; Q0163

== ENCOUNTER → 2018-08-09 | Outpatient (CLI) | payer OTHER ==
[~2018-08-09] MED LIST changes: +CEFTAZIDIME IV; +CENTRUM ADULTS1 EACH PO; +FOLI1 PO; +LACTOBACILLUS PO; +MIRALAX17 GM PO; +TUMS500 MG PO; +VANCOMYCIN IV
[2018-08-09 13:38] LABS: Hematocrit 38.9 % (33.0-51.0); Hemoglobin 10.9 g/dL (11.5-16.0); Mean Corpuscular HGB 27.3 pg (26.0-34.0); Mean Corpuscular Volume 98 fL (80-100); Mean Platelet Volume 11.9 fL (9.1-12.4); Platelet Count 228 K/mm3 (150-400); RDW Coefficient Variation 15.3 % (11.7-14.2); RDW Standard Deviation 54.9 fL (35.1-46.3); Red Blood Cell Count 3.99 M/mm3 (3.80-5.20); White Blood Cell Count 12.68 K/mm3 (4.00-11.30)
[2018-08-09 13:55] LABS: Anion Gap 2 mmol/L (6-16); Blood Urea Nitrogen 13 mg/dL (8-24); Bun/Creatinine Ratio 13.9 (12.0-20.0); CO2, Blood 43 mmol/L (21-32); Calcium, Blood 9.6 mg/dL (8.5-10.1); Chloride, Blood 99 mmol/L (98-108); Creatinine, Blood 0.93 mg/dL (0.40-1.00); Glomerular Filtration Rate >60 (60-); Glucose, Blood 106 mg/dL (70-99); Potassium, Blood 3.9 mmol/L (3.5-5.5); Sodium, Blood 144 mmol/L (136-145)
[2018-08-09 13:56] LABS: Vancomycin, Trough 15.8 ug/mL (5.0-10.0)
== END | disposition home or self-care (01) ==
LOC: LAB HH 13:22 → LAB 13:22
PROVIDERS: Family Medicine
DX: B96.5 Pseudomonas (aeruginosa) (mallei) (pseudomallei) as the cause of diseases classified elsewhere (principal)
CPT/HCPCS: 80048; 80202; 85027

== ENCOUNTER → 2018-08-14 | Outpatient (CLI) | payer OTHER ==
[2018-08-14 18:14] LABS: BASOPHILS ABSOLUTE AUTO 0.05 K/mm3 (0.00-0.23); BASOPHILS PERCENT AUTO 1 % (0-2); EOSINOPHILS ABSOLUTE AUTO 0.36 K/mm3 (0.00-0.68); EOSINOPHILS PERCENT AUTO 3 % (0-6); Hematocrit 39.1 % (33.0-51.0); IMMATURE GRAN ABSOLUTE AUTO 0.05 K/mm3 (0.00-0.10); IMMATURE GRAN PERCENT AUTO 1 % (0-1); LYMPHOCYTES ABSOLUTE AUTO 1.35 K/mm3 (0.84-5.20); LYMPHOCYTES PERCENT AUTO 13 % (21-46); MONOCYTES ABSOLUTE AUTO 0.43 K/mm3 (0.16-1.47); MONOCYTES PERCENT AUTO 4 % (4-13); Mean Corpuscular HGB 27.4 pg (26.0-34.0); Mean Corpuscular HGB Conc 28.1 g/dL (31.5-36.5); Mean Corpuscular Volume 98 fL (80-100); Mean Platelet Volume 11.2 fL (9.1-12.4); NEUTROPHILS ABSOLUTE AUTO 8.31 K/mm3 (1.96-9.15); NEUTROPHILS PERCENT AUTO 79 % (41-73); Platelet Count 193 K/mm3 (150-400); RDW Coefficient Variation 15.2 % (11.7-14.2); RDW Standard Deviation 54.6 fL (35.1-46.3); Red Blood Cell Count 4.01 M/mm3 (3.80-5.20); White Blood Cell Count 10.55 K/mm3 (4.00-11.30)
[2018-08-14 18:37] LABS: Anion Gap 1 mmol/L (6-16); Blood Urea Nitrogen 16 mg/dL (8-24); Bun/Creatinine Ratio 20.5 (12.0-20.0); CO2, Blood 42 mmol/L (21-32); Calcium, Blood 9.2 mg/dL (8.5-10.1); Chloride, Blood 97 mmol/L (98-108); Creatinine, Blood 0.78 mg/dL (0.40-1.00); Glomerular Filtration Rate >60 (60-); Glucose, Blood 106 mg/dL (70-99); Potassium, Blood 3.8 mmol/L (3.5-5.5); Sodium, Blood 140 mmol/L (136-145)
== END ==
LOC: LAB HH 17:44
PROVIDERS: Family Medicine
DX: J18.9 Pneumonia, unspecified organism (principal); Z79.2 Long term (current) use of antibiotics
CPT/HCPCS: 80048; 85025

== ENCOUNTER 2018-08-28 08:19 | Inpatient (IN) | payer OTHER ==
[~2018-08-28] VITALS: Ht 157.5 cm; Wt 70.2 kg
[2018-08-28 09:09] LABS: PCO2 Arterial 66 mmHg (35-45); PO2 Arterial 139 mmHg (80-100); pH Blood Arterial 7.37 (7.35-7.45)
[2018-08-28 09:33] LABS: BASOPHILS PERCENT AUTO 1 % (0-2); EOSINOPHILS PERCENT AUTO 2 % (0-6); Hematocrit 44.1 % (33.0-51.0); Hemoglobin 12.6 g/dL (11.5-16.0); IMMATURE GRAN ABSOLUTE AUTO 0.11 K/mm3 (0.00-0.10); IMMATURE GRAN PERCENT AUTO 1 % (0-1); LYMPHOCYTES ABSOLUTE AUTO 1.13 K/mm3 (0.84-5.20); LYMPHOCYTES PERCENT AUTO 7 % (21-46); MONOCYTES ABSOLUTE AUTO 0.92 K/mm3 (0.16-1.47); MONOCYTES PERCENT AUTO 6 % (4-13); Mean Corpuscular HGB 27.5 pg (26.0-34.0); Mean Corpuscular HGB Conc 28.6 g/dL (31.5-36.5); Mean Corpuscular Volume 96 fL (80-100); Mean Platelet Volume 10.6 fL (9.1-12.4); NEUTROPHILS ABSOLUTE AUTO 13.02 K/mm3 (1.96-9.15); NEUTROPHILS PERCENT AUTO 84 % (41-73); NRBC ABSOLUTE 0.02 K/mm3 (0.00-0.02); NRBC Auto 0.1 /100 WBC (0.0-0.2); Platelet Count 346 K/mm3 (150-400); RDW Standard Deviation 53.1 fL (35.1-46.3); Red Blood Cell Count 4.58 M/mm3 (3.80-5.20); White Blood Cell Count 15.58 K/mm3 (4.00-11.30)
[2018-08-28 09:48] LABS: Alanine Aminotransfer (ALT/SGP 13 U/L (12-78); Albumin, Blood 2.6 g/dL (3.4-5.0); Albumin/Globulin Ratio 0.6 (0.8-1.8); Alk Phos 104 U/L (50-136); Anion Gap 2 mmol/L (6-16); Aspartate Aminotrans (AST/SGOT 17 U/L (12-37); Bilirubin, Total 0.8 mg/dL (0.1-1.0); Blood Urea Nitrogen 23 mg/dL (8-24); Bun/Creatinine Ratio 25.6 (12.0-20.0); CO2, Blood 37 mmol/L (21-32); Calcium, Blood 10.3 mg/dL (8.5-10.1); Chloride, Blood 101 mmol/L (98-108); Globulin, Blood 4.4 g/dL (2.2-4.0); Glomerular Filtration Rate >60 (60-); Glucose, Blood 124 mg/dL (70-99); Sodium, Blood 140 mmol/L (136-145)
[2018-08-28 10:12] LABS: Source, Urine Catheter
[2018-08-28 10:17] LABS: Blood, Urine 1+ (Neg); Glucose Qualitative, Urine Neg (Neg); Ketones, Urine 1+ (Neg); Leukocyte Esterase, Urine 1+ (Neg); Nitrite, Urine Neg (Neg); Protein, Urine 2+ (Neg); Specific Gravity, Urine 1.025 (1.003-1.022); Urobilinogen, Urine 2+ (Normal)
[2018-08-28 10:25] LABS: Appearance, Urine Clear (Clear); Bilirubin, Urine 1+ (Neg); Color, Urine Amber (P-Yellow)
[2018-08-28 10:28] LABS: Bacteria Rare /hpf; Mucus Light (0-Heavy); Red Blood Cells, Urine 0-2 /hpf (0-2); Squamous Epithelial Cells Not Seen /hpf (Few); White Blood Cells, Urine 0-2 /hpf (0-5)
--- NOTE | 2018-08-28 12:00 | NUR ---
ARRIVAL TO ICU 1130 - PT ARRIVED TO ICU FROM ED. SHE IS AWAKE AND ORIENTED TO PERSON AND PLACE. DURING THE PROCESS OF SWITCHING PT FROM TRANSPORT VENTILATOR TO STATIONARY VENTILATOR, SHE BECAME DIFFICULT TO OXYGENATE. ATTEMPTED BAGGING PT BUT RT WAS UNSUCCESSFUL. SUCTIONED YELLOW, THICK SECRETIONS FROM TRACH AND BAGGED FOR AWHILE LONGER. PT BECAME UNRESPONSIVE AND HR DROPPED TO 40S AND SHE WAS CYANOTIC. CODE BLUE CALLED DUE TO RESPIRATORY DISTRESS. DR. SOLIS AT BEDSIDE SHORTLY AFTER, PT SUCTIONED AGAIN, AND WAS THEN ABLE TO BAG. PT COLORING RETURNED TO PINK AND HR IN 90S. TRACH THEN ATTACHED TO STATIONARY VENTILATOR AND PT AWOKE TO PAINFUL STIMULATION. DURING EPISODE, PT HAD LARGE, RUNNY BOWEL MOVEMENT. RECTAL TUBE INSERTED AND PT CLEANED, AND LINENS CHANGED. LEVOPHED GTT STARTED AFTER RESPIRATORY STABILIZED; NOW INFUSING AT 15 MCG/MIN AND WILL TITRATE DOWN. FAMILY AT BEDSIDE. WILL CONTINUE TO MONITOR. PT RECEIVED 2 LR BOLUSES IN ICU AND IS NOW RECEIVING LR MIV AT 100 ML/HR.
[2018-08-28 16:12] LABS: PCO2 Arterial 59.6 mmHg (35-45); PO2 Arterial 75.6 mmHg (80-100); pH Blood Arterial 7.37 (7.35-7.45)
--- NOTE | 2018-08-28 18:12 | NUR ---
SHIFT SUMMARY SEE NOTE FROM PT ARRIVAL TO ICU. SINCE THEN, PT HAS SLEPT ESCEPT WHEN STIMULATED. NO SEDATION. LEVOPHED GTT NOW TITRATED OFF. LR MIV INFUSING AT 100 ML/HR. MAP 80-90. FAMILY BEDSIDE. AFEBRILE. PT HAD 800 ML OUT FROM RECTAL TUBE. URINE IS ORANGE, TEA COLOR BUT FATHER STATES SHE HAS BEEN TAKING IRON SUPPLEMENTS. ORAL CARE DONE PRN AND PT TURNED Q2H AND HOB ELEVATED. NSR, HR 90S. WILL GIVE BEDSIDE, HANDOFF REPORT TO SEGUN RN.
--- NOTE | 2018-08-28 20:18 | NUR ---
ASSUMED CARE OF PT PT ON TRACH VENT SETTINGS AC 14/400/10/35% DIM LUNG SOUNDS THROUGHOUT WITH THICK YELLOW SECRETIONS SUCTIONED. PT RESPONDS MINIMALLY TO VERBAL STIMULI BUT IS RESPONSIVE TO PAINFUL STIMULUS. TEMP ZENDEJAS PATENT AND DRAINING SCANT AMOUNT OF DARK TEA COLORED URINE. RECTAL TUBE PATENT AND DRAINING. LR RUNNING AT 100 ML/HR. PT'S FATHER AND FRIEND AT BEDSIDE. SEE FULL SHIFT ASSESSMENT.
[2018-08-29 03:36] LABS: Hematocrit 38.2 % (33.0-51.0); Hemoglobin 11.3 g/dL (11.5-16.0); Mean Corpuscular HGB 27.8 pg (26.0-34.0); Mean Corpuscular HGB Conc 29.6 g/dL (31.5-36.5); Mean Corpuscular Volume 94 fL (80-100); Mean Platelet Volume 11.1 fL (9.1-12.4); Platelet Count 240 K/mm3 (150-400); RDW Coefficient Variation 15.5 % (11.7-14.2); RDW Standard Deviation 53.4 fL (35.1-46.3); Red Blood Cell Count 4.07 M/mm3 (3.80-5.20); White Blood Cell Count 14.78 K/mm3 (4.00-11.30)
[2018-08-29 03:55] LABS: Bun/Creatinine Ratio 27.6 (12.0-20.0); Calcium, Blood 9.1 mg/dL (8.5-10.1); Creatinine, Blood 1.05 mg/dL (0.40-1.00)
[2018-08-29 05:16] LABS: PCO2 Arterial 57.1 mmHg (35-45); PO2 Arterial 68.4 mmHg (80-100); pH Blood Arterial 7.39 (7.35-7.45)
--- NOTE | 2018-08-29 05:40 | NUR ---
SHIFT SUMMARY PT ALERT, ORIENTED AND FOLLOWING COMMANDS. VENT SETTINGS AC 16/400/10/35%. PT CONTINUES TO HAVE COPIOUS AMOUNTS OF THICK, YELLOW SECRETIONS. PT HAS HAD PEAK PRESSURES OF 50'S REQUIRING RT INTERVENTION FOR LAVAGE. PT ABLE TO COUGH TO ASSIST DISLODGING MUCOUS FOR ORAL OR TRACHEAL SUCTIONING. ZENDEJAS TEMP PATENT AND DRAINING DARK, TEA COLORED URINE. 300 ML URINARY OUTPUT THIS SHIFT. RECTAL TUBE PATENT AND DRAINING WATERY STOOL. 500 ML OUTPUT. TMAX 100.6, SBP 130-140'S, HR 90'S, NSR. WILL REPORT TO DAYSHIFT NURSE.
--- NOTE | 2018-08-29 07:15 | NUR ---
START OF SHIFT NOTE: RECEIVED REPORT FROM ANGEL MORIN RN, ASSUMED CARE, PATIENT APPEARS TO BE SLEEPING, AROUSES TO VOICE, OPENS EYES SPONTANEOUSLY AND ABLE TO FOLLOW SOME COMMANDS, PATIENT HAS A TRACH IN PLACE, ATTACHED TO VENTILATOR, SETTINGS ARE 16/5/400/FiO2 35 %, PATIENT HAS AN ACCESSED MEDIPORT ON RIGHT UPPER CHEST, LUNG SOUNDS ARE COARSE AND RHONCHI NOTED AT TIMES, BOWEL TONES ARE HYPOACTIVE IN ALL FOUR QUADRANTS, RECTAL TUBE IN PLACE, DRAINING BLACK WATERY STOOLS, RECEIVED DOUBLE DOSE OF MIRALAX AT HOME PER PATIENT'S FATHER, PEDAL PULSES ARE PRESENT BUT FAINT AND THREADY, PATIENT'S FATHER IN TO SEE PATIENT, RT IN TO SEE PATIENT, LR AT 100 CC/HR INFUSING, ZENDEJAS CATHETER IN PLACE DRAINING [place] COLORED URINE, SKIN SHOWS MULTIPLE SKIN TEARS THAT WERE PRESENT ON ARRIVAL, ALSO MOTTLING NOTED, CALL LIGHT IN PLACE, WILL CONTINUE TO MONITOR.
--- NOTE | 2018-08-29 08:01 | NUR ---
PATIENT RECEIVED 50 MCG OF FENTANYL FOR 9/10 ABDOMINAL PAIN, FATHER AT BEDSIDE, CALL LIGHT IN REACH, WILL CONTINUE TO MONITOR.
--- NOTE | 2018-08-29 08:47 | NUR ---
CALLED RADIOLOGY TO INQUIRE ABOUT ORDERED XRAY, PER [facility] X-RAY ELVIRA, CHEST XRAY WAS DONE AT 04;01 THIS AM.
--- NOTE | 2018-08-29 09:14 | NUR ---
PATIENT IS RESTING COMFORTABLY WITH EYES CLOSED, PATIENT'S FATHER AT BEDSIDE, WATCHING TV, CALL LIGHT IN REACH, WILL CONTINUE TO MONITOR.
--- NOTE | 2018-08-29 09:50 | NUR ---
ZENDEJAS CATHETER WAS INSERTED IN ED ON 08-28-18.
--- NOTE | 2018-08-29 10:32 | NUR ---
RT NOTIFIED, PATIENT CONTINUES TO COUGH AND MUCUS PLUG NOTED, UNABLE TO SUCTION OUT, RT IN TO SEE PATIENT.
--- NOTE | 2018-08-29 11:47 | NUR ---
DR. SOLIS IN TO SEE PATIENT, PATIENT'S FATHER HOME TO GET PATIENT'S HOME VENT, ONCE SWITCHED TO HOME VENT POSSIBLY FEED PATIENT AND SEE IF SHE WILL EAT, CONTINUES TO HAVE ABDOMINAL CRAMPS, RECEIVED ANOTHER 50 MCG OF FENTANYL FOR PAIN, BUT PATIENT WAS ADVISED THAT PAIN MEDICATION WILL CAUSE CONSTIPATION, CALL LIGHT IN REACH, WILL CONTINUE TO MONITOR.
--- NOTE | 2018-08-29 13:11 | NUR ---
PATIENT RESTING COMFORTABLY WITH EYES CLOSED AT THIS TIME, CALL LIGHT IN REACH, WILL CONTINUE TO MONITOR.
--- NOTE | 2018-08-29 17:55 | NUR ---
SHIFT SUMMARY NOTE: PATIENT IS ALERT AND ORIENTED AT THIS TIME, ABLE TO MAKE NEEDS KNOWN, USES CALL LIGHT APPROPRIATELY, ON HOME VENT AT THIS TIME, WITH HOME SETTINGS, CONTINUES TO HAVE THICK YELLOW SECRETIONS AT TIMES, WAS MEDICATED FOR ABDOMINAL PAIN MULTIPLE TIMES, AND ALSO RECEIVED 2 MG ATIVAN FOR EXTREME ANXIETY, NSR/ST, BLOOD PRESSURES IN 130'S TO 140'S, ABDOMEN MODERATELY EXTENDED, RECTAL TUBE IN PLACE DRAINING BROWN WATERY STOOL, ZENDEJAS CATHETER ALSO IN PLACE WITH INCREASED URINE OUTPUT, URINE MUCH CLEARER AND [employer] AIRCREW[employer] HELICOPTER IN APPEARANCE, FATHER AND FRIEND AT BEDSIDE, CALL LIGHT IN REACH, FOR DETAILS SEE SHIFT ASSESSMENT DOCUMENTATION AND NURSES NOTES, CALL LIGHT IN REACH, WILL CONTINUE TO MONITOR AND GIVE REPORT TO ONCOMING FIRST RESPONDER.
--- NOTE | 2018-08-29 21:25 | NUR ---
CARE ASSUMED REPORT RECEIVED, CARE ASSUMED FROM PIERCE WILSON AT 1900. PT ON HOME VENT, RESTING QUIETLY AT SHIFT CHANGE. VITALS STABLE. SEE SHIFT ASSESSMENT. SINCE ASSUMPTION OF CARE, PT ANXIOUS, STATING VIA LIP TALKING, "I CAN'T BREATH." RR ELEVATED, BP ELEVATED, HR ELEVATED, O2 SAT HIGH 80'S. PROVIDED WITH SUCTION. MEDICATED WITH FENTANYL. RESP RATE IMPROVED, 02 SAT TO LOW 90'S. PT LEFT WITH BED IN LOWEST POSITION, CALL LIGHT IN HAND. AGREES TO CALL FOR NEEDS.
[2018-08-29 23:30] LABS: Vancomycin, Trough 14.1 ug/mL (5.0-10.0)
--- NOTE | 2018-08-30 00:23 | NUR ---
ANXIETY/RESP STATUS PT ANXIOUS, RR INCREASED, HR INCREASED, BP INCREASED. 02 SAT MID 80'S. SUCTIONED, UNABLE TO VERBALLY REDIRECT. MEDICATED WITH ATIVAN, PT RELAXED SLIGHTLY BUT CONTINUES TO BE ANXIOUS WITH FIDGETING ARMS/LEGS AND INCREASED RR. WILL CONTINUE TO MONITOR/REASSESS.
[2018-08-30 03:59] LABS: BASOPHILS ABSOLUTE AUTO 0.01 K/mm3 (0.00-0.23); BASOPHILS PERCENT AUTO 0 % (0-2); EOSINOPHILS PERCENT AUTO 0 % (0-6); Hematocrit 35.9 % (33.0-51.0); Hemoglobin 10.6 g/dL (11.5-16.0); IMMATURE GRAN ABSOLUTE AUTO 0.05 K/mm3 (0.00-0.10); IMMATURE GRAN PERCENT AUTO 0 % (0-1); LYMPHOCYTES ABSOLUTE AUTO 0.49 K/mm3 (0.84-5.20); LYMPHOCYTES PERCENT AUTO 4 % (21-46); MONOCYTES ABSOLUTE AUTO 0.25 K/mm3 (0.16-1.47); MONOCYTES PERCENT AUTO 2 % (4-13); Mean Corpuscular HGB 27.3 pg (26.0-34.0); Mean Corpuscular HGB Conc 29.5 g/dL (31.5-36.5); Mean Corpuscular Volume 93 fL (80-100); Mean Platelet Volume 11.6 fL (9.1-12.4); NEUTROPHILS ABSOLUTE AUTO 11.41 K/mm3 (1.96-9.15); NEUTROPHILS PERCENT AUTO 94 % (41-73); Platelet Count 225 K/mm3 (150-400); RDW Coefficient Variation 15.9 % (11.7-14.2); RDW Standard Deviation 53.8 fL (35.1-46.3); Red Blood Cell Count 3.88 M/mm3 (3.80-5.20); White Blood Cell Count 12.21 K/mm3 (4.00-11.30)
[2018-08-30 04:17] LABS: Alanine Aminotransfer (ALT/SGP 14 U/L (12-78); Albumin/Globulin Ratio 0.5 (0.8-1.8); Alk Phos 80 U/L (50-136); Anion Gap 2 mmol/L (6-16); Aspartate Aminotrans (AST/SGOT 9 U/L (12-37); Bilirubin, Total 0.4 mg/dL (0.1-1.0); Blood Urea Nitrogen 29 mg/dL (8-24); Bun/Creatinine Ratio 33.5 (12.0-20.0); CO2, Blood 35 mmol/L (21-32); Chloride, Blood 107 mmol/L (98-108); Creatinine, Blood 0.87 mg/dL (0.40-1.00); Globulin, Blood 4.3 g/dL (2.2-4.0); Glomerular Filtration Rate >60 (60-); Glucose, Blood 111 mg/dL (70-99); Magnesium, Blood 2.6 mg/dL (1.6-2.4); Phosphorus, Blood 3.6 mg/dL (2.5-4.9); Potassium, Blood 4.3 mmol/L (3.5-5.5); Sodium, Blood 144 mmol/L (136-145); Total Protein, Blood 6.3 g/dL (6.4-8.2)
--- NOTE | 2018-08-30 06:27 | NUR ---
SUMMARY VITALS STABLE THROUGHOUT NIGHT WITH EXCEPTION OF BP/HR/RR WITH ANXIETY. MEDICATED FOR PAIN/ANXIETY, SEE EMAR. OTHERWISE PT HAS RESTED QUIETLY. PT MOST ANXIOUS WHEN ATTEMPTING ADL'S PT BECOMES SHORT OF BREATH QUICKLY. RECTAL TUBE CONTINUES TO DRAIN LIQUID STOOL, ABD TENDER INTERMITTENLY THROUGHOUT NIGHT AND APPEARS MORE DISTENDED THIS MORNING. WILL DISCUSS WITH DAY SHIFT RN FOR MD ASSESSMENT. UPON ATTEMPTING TO DO CATH CARE, CATHETER FOUND TO BE OUT OF PATIENT, BALLOON FILLED WITH ZERO ML'S UPON ASSESSMENT. PT HAS ALLOWED MINIMAL ADL'S INCLUDING ORAL CARE THROUGHOUT NIGHT. PT EDUCATED. OTHERWISE, NO CHANGES.
--- NOTE | 2018-08-30 07:15 | NUR ---
RECEIVED REPORT FROM PIERCE MORENO, AND ASSUMED CARE OF PT.
--- NOTE | 2018-08-30 07:16 | NUR ---
REPORT TO PIERCE KAMINSKI TO ASSUME CARE
--- NOTE | 2018-08-30 13:00 | NUR ---
PATIENT VERY ANXIOUS, HR 150'S, BLOOD PRESSURE ELEVATED, RR 40'S, SATS REMAINING 89-93% ON VENTILATOR SETTINGS, INCREASED OXYGEN FLOW WHEN DESAT TO 88% SUSTAINED, SATS INCREASED TO 93%. SUCTIONED, NO OUTPUT, DENIES COUGHING. MEDICATED WITH ATIVAN, EDUCATED REGARDING RELAXATION. IT TOOK PATIENT APPROXIMATELY 1 HOUR TO CALM DOWN AND RETURN TO BASELINE.
--- NOTE | 2018-08-30 13:46 | NUR ---
DR. SOLIS AT BEDSIDE FOR EVALUATION.
--- NOTE | 2018-08-30 16:31 | NUR ---
NURSING SUMMARY ALERT, ORIENTED, VERY ANXIOUIS THROUGHOUT THE DAY. WHEN ANXIOUS, BP/HR/RR INCREASE, WORKS TO INCREASE OXYGEN FLOW AND TALK WITH PT TO HELP CALM HER DOWN, GIVING ATIVAN 2 MG IV EVERY 4 HOURS, PT ASKS FOR IT MORE OFTEN. C/O ABDOMINAL PAIN, CAN HAVE FENTANYL EVERY 2 HOURS, PT ASKS FOR IT MORE OFTEN WELL. LUNGS VERY DIMINISHED THROUGHOUT, HOME VENTILATOR TO TRACH, SETTINGS 16/400/10/35%,SATS REMAIN 90% AND HIGHER, OCCASSIONALLY DROPS TO 88% DURING PERIODS OF ANXIETY. SUCTIONING PRN, SCANT WHITE SPUTUM, DRY COUGH. NSR - ST ON MONITOR, HR 80'S AND INCREASES TO 150'S DURING ANXIETY. RECTAL TUBE IN PLACE WITH LIQUID STOOL. ABDOMEN DISTENDED, SOFT, MILD TENDERNESS ON PALPATION. VOIDS PER BEDSIDE COMMODE AND HAS BEEN INCONTINENT AT TIMES. FRAGILE SKINS WITH MULTIPLED HEALED SCARS THROUGHOUT BODY. ACCESSED MEDIPORT TO RIGHT CHEST INFUSING LR AT 100 ML/HR. DROPLET AND CONTACT ISOLATION FOR MRSA IN SPUTUM AND MDRO IN SPUTUM, THROAT AND RECTUM PER HOSPITAL NOTES.
--- NOTE | 2018-08-31 05:42 | NUR ---
END OF SHIFT SUMMARY ASSUMED CARE OF PT @1900. PATIENT ALERT TO STAFF AND ORIENTED. APPEARS TO BE DRWOSY THOUGH. PATIENT FOLLOWING COMMANDS AND IS ABLE TO EXPRESS NEEDS VIA POINTING AND MOUTHING WORDS. PT ON HOME VENT INTO TRACH. TRACH CARE COMPLETED THIS SHIFT. VENT SETTINGS: AC 16, TV500, PEEP 10, FI02 35%. WHEN CALM, SATS >92%. When anxious, sats decrease and hr increases. BLEED IN O2 TO VENT INCREASED AT THESE TIMES TO COMBAT ANXIETY ATTACKS ALONG WITH ATIVAN 2MG Q2. PATIENTS ABDOMEN DISTENDED AND SLIGHTLY TENDER TO TOUCH. RECTAL TUBE IS IN PLACE. UPON SHIFT CHANGE, RECTAL TUBE NOTED TO BE OUT OF RECTUM. PT CLEANED AND TUBE REINSERTED. PT HAS BEEN INCONTINENT OF URINE 2XS THIS SHIFT. PT HAS APPEARED TO SLEEP T/O SHIFT. PT HAS RECEIVED A TOTAL OF 50MCGS FENTANYL IV. TOLERATED WELL. LR 100MLS/HR INFUSING INTO MEDIPORT. WILL CONTINUE TO MONITOR PT UNTIL SHIFT CHANGE.
--- NOTE | 2018-08-31 07:15 | NUR ---
RECEIVED REPORT FROM PIERCE DENNEY, AND ASSUMED CARE OF PT.
[2018-08-31 11:22] LABS: Vancomycin, Trough 14.7 ug/mL (5.0-10.0)
--- NOTE | 2018-08-31 18:00 | NUR ---
NURSING SUMMARY ALERT AND ORIENTED X4, VERY ANXIOUS AT TIMES, ATIVAN Q4H. C/O ABDOMINAL PAIN, ABDOMINAL XRAY DONE TODAY, STOOL FOR C-DIFF SENT TO LAB. HOME VENTILATOR VIA TRACH AT ALL TIMES, SUCTIONING SCANT WHITE SPUTUM, RR INCREASES TO 40'S WITH ANXIETY, ALONG WITH INCREASES IN BLOOD PRESSURE AND HR. ST ON MONITOR, HR 110'S, INCREASES TO 130'S - 150'S WITH ANXIETY. RECTAL TUBE IN PLACE DRAINING LIQUID STOOL, ABDOMEN DISTENDED, SOFT, TENDER TO PALPATION. VOIDS PER BEDPAN, INCONTINENT OF URINE AT TIMES, ATTENDS. FRAGILE SKIN WITH SKIN TEARS AND HEALED SCARS. MEDIPORT TO RIGHT CHEST ACCESSED AND INFUSING LR AT 100 ML/HR AND ANTIBIOTICS. FATHER AT BEDSIDE MOS OF THE DAY. ASSISTED PT OUT OF BED TODAY TO THE CHAIR, STAYED IN THE CHAIR FOR APPROX. 3 -4 HOURS AND ASSISTED BACK TO BED, MAX 2 PERSON ASSIST.
--- NOTE | 2018-09-01 04:07 | NUR ---
SHIFT SUMMARY: PATIENT ANCIETY INCREASING THIS SHIFT, PATIENT ASKING FOR ATIVAN APPROX 10-15 MINUTES AFTER RECIEVING ATIVAN. PATEINT DOES NOT WANT TO LAY DOWN, SIT UP OR BE TURNED/TOUCHED UNTIL SHE HAS HAD HER ATIVAN, PATIENT CLEANED ONLY ONCE EVERY 3-4 HOURS D/T PATIENT REFUSALS. PATIENT HR AND BP INCREASE WHENEVER PATIENT AGGITATED, PATIENT STATES SHE CANNOT BREATH WITH O2 SATURATIONS AT 92% TO 98%. AFTER ATIVAN PATIENTS VSS. CALL LIGHT WITHIN REACH, BED LOW AND LOCKED.
--- NOTE | 2018-09-01 08:28 | NUR ---
ASSUMED CARE OF PT AT APPROX 0700. VSS. PT ASLEEP AT TIME OF SHIFT CHANGE. DR IBRAHIM IN THIS AM WITH PT. RECTAL TUBE CAN DC UPON NURS JUDGMENT PER DR IBRAHIM. FENT D/C AND OXYCODONE THERAPY PO BEGAN PER DR IBRAHIM. NO FUTHER CHANGES IN PLAN OF CARE AT THIS TIME. PT PCU STATUS IN ICU 11.
--- NOTE | 2018-09-01 18:41 | NUR ---
SHIFT SUMMARY NO ACUTE CHANGES THIS SHIFT. PT WITH ANXIETY THROUGHOUT THE SHIFT. PT RESPONDS WELL TO [facility] THERAPY INITIATED AT 1600. PT RESTING COMFORTABLY THROUGHOUT AFTERNOON. INTERMITTENT INLINE SUCTION PERFORMED WITH PT RELIEF STATED. VSS. PT IN NO APPARENT SIGN OF DISTRESS. A&OX4. PT PRIMARY CONCERN THIS SHIFT IS ANXIETY. PT DID NOT EAT THIS SHIFT. BED IN LOW POSITION, CALL LIGHT IN REACH, PT CALLS APPROPRIATELY. WILL CONTINUE TO MONITOR
[2018-09-02 04:33] LABS: BASOPHILS ABSOLUTE AUTO 0.01 K/mm3 (0.00-0.23); BASOPHILS PERCENT AUTO 0 % (0-2); EOSINOPHILS ABSOLUTE AUTO 0.03 K/mm3 (0.00-0.68); EOSINOPHILS PERCENT AUTO 1 % (0-6); Hematocrit 32.6 % (33.0-51.0); Hemoglobin 9.3 g/dL (11.5-16.0); IMMATURE GRAN ABSOLUTE AUTO 0.09 K/mm3 (0.00-0.10); IMMATURE GRAN PERCENT AUTO 1 % (0-1); LYMPHOCYTES ABSOLUTE AUTO 0.95 K/mm3 (0.84-5.20); LYMPHOCYTES PERCENT AUTO 15 % (21-46); MONOCYTES ABSOLUTE AUTO 0.46 K/mm3 (0.16-1.47); MONOCYTES PERCENT AUTO 7 % (4-13); Mean Corpuscular HGB Conc 28.5 g/dL (31.5-36.5); Mean Corpuscular Volume 95 fL (80-100); Mean Platelet Volume 11.7 fL (9.1-12.4); NEUTROPHILS ABSOLUTE AUTO 4.88 K/mm3 (1.96-9.15); NEUTROPHILS PERCENT AUTO 76 % (41-73); Platelet Count 159 K/mm3 (150-400); RDW Coefficient Variation 15.2 % (11.7-14.2); RDW Standard Deviation 52.4 fL (35.1-46.3); Red Blood Cell Count 3.45 M/mm3 (3.80-5.20); White Blood Cell Count 6.42 K/mm3 (4.00-11.30)
[2018-09-02 04:56] LABS: Anion Gap 4 mmol/L (6-16); Blood Urea Nitrogen 27 mg/dL (8-24); Bun/Creatinine Ratio 37.2 (12.0-20.0); CO2, Blood 35 mmol/L (21-32); Calcium, Blood 8.6 mg/dL (8.5-10.1); Chloride, Blood 107 mmol/L (98-108); Creatinine, Blood 0.73 mg/dL (0.40-1.00); Glomerular Filtration Rate >60 (60-); Glucose, Blood 66 mg/dL (70-99); Sodium, Blood 146 mmol/L (136-145)
--- NOTE | 2018-09-02 06:38 | NUR ---
SUMMARY PT RESTING IN BED. TRACH TO HOME VENT. HAD TO TURN O2 UP TO 5L DUE TO SATING 88%. SUCTIONING MOD AMT OF THICK EMERSON SPUTUM. LS COARSE. PT MOUTHS WORDS TO MAKE NEEDS KNOWN. GAVE OXYCODONE AND ATIVAN THROUGH THE NIGHT FOR PAIN AND ANXIETY. ANXIETY SEEMED BETTER THROUGH THE NIGHT THAN WHAT WAS REPORTED DURING THE DAY. ENCOURAGED TO REPOSITION BUT PT WILL TURN SELF RIGHT BACK TO HER L SIDE. WAS INCONT OF URINE AT TIMES BUT WAS ABLE TO ASK FOR AND USE THE BEDPAN THIS AM. NO SIGN OF DISTRESS. CALL LIGHT IN REACH AND PT CAN USE IT APPROPRIATELY.
--- NOTE | 2018-09-02 08:10 | NUR ---
AM NOTE ASSUMED CARE OF PT APROX 0700. PT WAS ADMITTED DUE TO SEPSIS. HEART MONITOR INTACT, NSR IN THE 90'S. PT'S BP 147/78. PT HAS 1+ EDEMA TO HER BILAT HANDS, AND GENDERALIZED EDEMA EVERYWHERE ELSE. L/S COARSE W/RHONCHI T/O AND DIM, PT IS ON HOME VENT, ON HER HOME SETTINGS. BT PRESENT AND HYPOACTIVE, ABD IS VERY DISTENDED, FIRM AND TENDER TO PALP. PT HAS RECTAL TUBE IN DUE TO SEVERE DIARRHEA. PT HAS HAD INCONT EPISODES AND HAS ATTENDS IN PLACE. PT IS VERY DROWSY, SHE RESPONDS TO VERBAL/TOUCH STIMULI BUT IS UNABLE TO KEEP HER EYES OPEN W/O CONSTANT TOUCH/STIMULI. PT KEEPS REQUESTING PAIN MEDICATION AND/OR HER ATIVAN DURING THIS TIME. PT'S FATHER AT THE BEDSIDE THIS AM. CALL LIGHT IN REACH, BED IS LOCKED AND LOW WILL CONTINUE TO MONITOR.
--- NOTE | 2018-09-02 14:32 | NUR ---
late entry, pt seen yesterday to assist nursing with symptom management. review of home medications if they were continued, suggested pharmacy review of meds. consulted with Respitory therapy on ways to thin secretions, review monitoring I/O for good hydration. Visited with patient. palliatve care has been mostly supportive as they have wanted full treament. Spoke with patient gently about considering hospice so she can have more symptom managment as the secretions get thicker. Will review with pt's primary router setter prognosis and plan of care. Repeat admissions and more difficult symptom managment. Patient may only listen to pulmonology. Best if she makes decission as her father may have difficulty letting go also this facility has a long realtionship with this family. Pt father getting more elderly and frail need to assess his ability to care for her.
[2018-09-02 17:41] LABS: Adenovirus F 40/41 Not Detected (NOT DETECT); Astrovirus Not Detected (NOT DETECT); Campylobacter Sp Not Detected (NOT DETECT); Cryptosporidium Not Detected (NOT DETECT); Cyclospora Cayetanensis Not Detected (NOT DETECT); E. Coli O157 Not Detected (NOT DETECT); Entamoeba Histolytica Not Detected (NOT DETECT); Enteroaggregative E. coli-EAEC Not Detected (NOT DETECT); Enteropathogenic E. coli-EPEC Not Detected (NOT DETECT); Enterotoxigenic E. coli-ETEC Not Detected (NOT DETECT); Giardia Lamblia Not Detected (NOT DETECT); Norovirus GI/GII Not Detected (NOT DETECT); Plesiomonas Shigelloides Not Detected (NOT DETECT); Rotavirus A Not Detected (NOT DETECT); Salmonella Sp Not Detected (NOT DETECT); Sapovirus Not Detected (NOT DETECT); Shiga Toxin-prod E. coli-STEC Not Detected (NOT DETECT); Shigella/Enteroin E. coli-EIEC Not Detected (NOT DETECT); Vibrio Cholerae Not Detected (NOT DETECT); Vibrio Sp Not Detected (NOT DETECT); Yersinia Enterocolitica Not Detected (NOT DETECT)
--- NOTE | 2018-09-02 18:24 | NUR ---
SHIFT SUMMARY. NO ACUTE CHANGES NOTED THIS SHIFT. PT'S VS HAVE BEEN STABLE. PT DENIES ANY CHEST PAIN/PRESSURE, N/V OR ABNORMAL SOB. PT HAS BEEN ON HER HOME VENT. PT'S STOOLS WERE NEGATIVE PER GI PCR. PT HAS NOT HAD VERY MUCH STOOL OUTPUT IN THE RECTAL TUBE. PT'S APPITITE HAS INCREASED TODAY PER THE PT'S FATHER. CALL LIGHT IN REACH, BED IS LOCKED AND LOW WILL CONTINUE TO MONITOR UNTIL REPORT IS GIVEN TO ONCOMING RN.
--- NOTE | 2018-09-02 20:49 | NUR ---
PT RESTING IN BED. C/O ANXIETY. MEDICATED WITH PRN AND SCHEDULED MEDS. TRACH TO HOME VENT. DECLINES TO BE REPOSITIONED. WILL CONTINUE TO ENCOURAGE MOVEMENT. NO SIGN OF DISTRESS.
--- NOTE | 2018-09-03 06:00 | NUR ---
SUMMARY PT RESTING IN BED. TRACH TO HOME VENT. O2 WAS TITRATED DOWN TO 4L. PT CAN MOVE HERSELF IN BED BUT LIKES TO LAY ON HER L SIDE AND NOT MOVE. WHEN PLACED ON HER R SIDE SHE WILL SCOOT BACK TO L. CONSISTANTLY ASKING FOR PAIN MEDS OR ATIVAN AND IS DROWSY. SOMETIMES SHE WILL ASK FOR MEDICATION BUT IS SOUND ASLEEP BY THE TIME RN RETURNS TO THE ROOM WITH MEDS. NO ACUTE CHANGES. NO SIGN OF DISTRESS.
[2018-09-03 09:27] LABS: PCO2 Arterial 90 mmHg (35-45); PO2 Arterial 87.3 mmHg (80-100); pH Blood Arterial 7.25 (7.35-7.45)
[2018-09-03 11:17] LABS: PCO2 Arterial 55.7 mmHg (35-45); PO2 Arterial 58.6 mmHg (80-100); pH Blood Arterial 7.44 (7.35-7.45)
[2018-09-03 12:49] LABS: Vancomycin, Trough 25.4 ug/mL (5.0-10.0)
[2018-09-03 12:51] LABS: Sodium, Blood 146 mmol/L (136-145)
--- NOTE | 2018-09-03 12:51 | NUR ---
CALLED DR. GREENBERG [facility] WAS UNABLE TO DRAW LACTIC ACID, PT IS STILL HYPOTENSIVE.UNABLE TO DRAW BLOOD FROM MEDIPORT. PT'S FATHER HAS STATED THAT MEDI PORT HAS NOT BEEN DRAWING BLOOD FOR OVER A YEAR. DR. GREENBERG ORDERED TO GO AHEAD AND GIVE NS BOLUS. INFORMED HER OF PT'S HR HAD STARTED TO DROP DOWN INTO MID 50s.
[2018-09-03 12:52] LABS: Anion Gap 6 mmol/L (6-16); Blood Urea Nitrogen 22 mg/dL (8-24); Bun/Creatinine Ratio 29.7 (12.0-20.0); CO2, Blood 35 mmol/L (21-32); Calcium, Blood 8.5 mg/dL (8.5-10.1); Chloride, Blood 105 mmol/L (98-108); Creatinine, Blood 0.74 mg/dL (0.40-1.00); Glomerular Filtration Rate >60 (60-); Glucose, Blood 79 mg/dL (70-99)
[2018-09-03 13:17] LABS: BASOPHILS ABSOLUTE AUTO 0.05 K/mm3 (0.00-0.23); BASOPHILS PERCENT AUTO 0 % (0-2); EOSINOPHILS ABSOLUTE AUTO 0.17 K/mm3 (0.00-0.68); EOSINOPHILS PERCENT AUTO 1 % (0-6); Hematocrit 38.3 % (33.0-51.0); Hemoglobin 11.5 g/dL (11.5-16.0); IMMATURE GRAN ABSOLUTE AUTO 0.27 K/mm3 (0.00-0.10); IMMATURE GRAN PERCENT AUTO 1 % (0-1); LYMPHOCYTES ABSOLUTE AUTO 1.01 K/mm3 (0.84-5.20); LYMPHOCYTES PERCENT AUTO 4 % (21-46); MONOCYTES ABSOLUTE AUTO 0.98 K/mm3 (0.16-1.47); MONOCYTES PERCENT AUTO 4 % (4-13); Mean Corpuscular HGB 27.6 pg (26.0-34.0); NEUTROPHILS ABSOLUTE AUTO 22.01 K/mm3 (1.96-9.15); NEUTROPHILS PERCENT AUTO 90 % (41-73); NRBC ABSOLUTE 0.02 K/mm3 (0.00-0.02); NRBC Auto 0.1 /100 WBC (0.0-0.2); RDW Standard Deviation 50.7 fL (35.1-46.3); Red Blood Cell Count 4.17 M/mm3 (3.80-5.20); White Blood Cell Count 24.49 K/mm3 (4.00-11.30)
[2018-09-03 13:34] LABS: Mean Corpuscular Volume 92 fL (80-100); Mean Platelet Volume 11.6 fL (9.1-12.4); Platelet Count 146 K/mm3 (150-400)
[2018-09-03 14:39] LABS: PCO2 Arterial 47.4 mmHg (35-45); PO2 Arterial 110 mmHg (80-100); pH Blood Arterial 7.47 (7.35-7.45)
--- NOTE | 2018-09-03 15:55 | NUR ---
0800 PT RESTLESS AND REQUIRING CLEAN UP FROM INCONT. VOID. PT VS NOTED AND WILL FOLLOW. PT IS ON HOME VENT WITH 6L BLEED IN. PT REMAINS COARSE T.O. LR DEC TO 50ML PER DR IBRAHIM.
--- NOTE | 2018-09-03 17:36 | NUR ---
PT BP NOTED AND LEVOPHED GTT D/C FOR NOW AND WILL FOLLOW. PT HAS BEEN NAPPING THIS PM AND THUS FAR HAS HAD MINIMAL PRN MEDS NOTED. PT TIS AFEBRILE, SATS HAVE BEEN GOOD ON AC 16-500-35%-5 PEEP, AND ABG HAD IMPORVED NOTED.
--- NOTE | 2018-09-03 22:30 | NUR ---
PATIENT RESTING QUIETLY. TRACH IN PLACE AND MIDLINE WITH VENT SET AT AC 16, TV 500, PEEP 5, FIO2 35%. SUCTIONING THICK WHITE SPUTUM. PATIENT BARBARA PO WITHOUT DIFFICULTY. WHEN AWAKE C/O PAIN TO HER BACK AND ABD, MEDICATED WITH PO ROXICODONE. WHEN PATIENT SLEEPING SBP DOWN TO 70'S LEVOPHED RESTARTED. LEVOPHED NOW AT 1 MCG.
[2018-09-04 04:31] LABS: BASOPHILS ABSOLUTE AUTO 0.02 K/mm3 (0.00-0.23); BASOPHILS PERCENT AUTO 0 % (0-2); EOSINOPHILS ABSOLUTE AUTO 0.11 K/mm3 (0.00-0.68); EOSINOPHILS PERCENT AUTO 1 % (0-6); Hematocrit 32.8 % (33.0-51.0); Hemoglobin 9.8 g/dL (11.5-16.0); IMMATURE GRAN ABSOLUTE AUTO 0.14 K/mm3 (0.00-0.10); IMMATURE GRAN PERCENT AUTO 1 % (0-1); LYMPHOCYTES ABSOLUTE AUTO 1.65 K/mm3 (0.84-5.20); LYMPHOCYTES PERCENT AUTO 13 % (21-46); MONOCYTES ABSOLUTE AUTO 0.47 K/mm3 (0.16-1.47); MONOCYTES PERCENT AUTO 4 % (4-13); Mean Corpuscular HGB 26.8 pg (26.0-34.0); Mean Corpuscular HGB Conc 29.9 g/dL (31.5-36.5); Mean Corpuscular Volume 90 fL (80-100); Mean Platelet Volume 11.7 fL (9.1-12.4); NEUTROPHILS ABSOLUTE AUTO 10.57 K/mm3 (1.96-9.15); NEUTROPHILS PERCENT AUTO 82 % (41-73); Platelet Count 196 K/mm3 (150-400); Red Blood Cell Count 3.65 M/mm3 (3.80-5.20); White Blood Cell Count 12.96 K/mm3 (4.00-11.30)
[2018-09-04 04:50] LABS: Anion Gap 5 mmol/L (6-16); Blood Urea Nitrogen 18 mg/dL (8-24); Bun/Creatinine Ratio 25.5 (12.0-20.0); CO2, Blood 34 mmol/L (21-32); Calcium, Blood 7.8 mg/dL (8.5-10.1); Chloride, Blood 105 mmol/L (98-108); Creatinine, Blood 0.71 mg/dL (0.40-1.00); Glomerular Filtration Rate >60 (60-); Glucose, Blood 98 mg/dL (70-99); Sodium, Blood 144 mmol/L (136-145); Vancomycin, Random 15.3 ug/mL
--- NOTE | 2018-09-04 05:30 | NUR ---
SUMMARY PATIENT SLEEPING OFF AND ON T/O THE NIGHT NO CHANGE TO VENT TO TRACH T/O NIGHT. LEVOPHED TITRATING DOWN TO 0.5MCG, BP APPEARS TO DROP WHILE PATIENT SLEEPING. PATIENT AWAKENS TO SLIGHT STIMULI T/O NIGHT. FREQUENT REQUEST FOR PAIN MEDICATIONS DUE TO BACK PAIN.
--- NOTE | 2018-09-04 07:35 | NUR ---
RECEIVED REPORT FROM PIERCE ABBOTT, AND ASSUMED CARE OF PT.
--- NOTE | 2018-09-04 11:00 | NUR ---
NURSING SUMMARY ALERT AND ORIENTED X 4, SLEEPING OFF AND ON, WAKES EASILY TO VOICE. ANXIOUS AT TIMES, ASKS FOR ATIVAN MORE FREQUENTLY THAN IT IS AVAILABLE TO GIVE, OFTEN ASKS WITHIN 10 MINUTES OF RECEIVING ATIVAN. LUNGS COARSE THROUGHOUT, ON VENTILATOR SETTINGS 16/400/30%/5 VIA TRACH, SATS MID 90%'S. SR ON MONITOR, HR 80'S, HYPOTENSIVE, SBP 80'S AND 90'S MOST OF THE TIME, ON LEVOPHED AT 0.5 MCG/MIN. TOLERATES PO, TAKES HER PILLS WHOLE, TOLERATING REGULAR DIET, POOR APPETITE. CALLS FOR ASSISTANCE ONTO THE BEDPAN OR BEDSIDE COMMODE, HAS BEEN INCONTINENT AT TIMES, ATTENDS IN PLACE. SKIN WITH BRUISES AND SMALL HEALING SCABS THROUGHOUT. NADER POWERGLIDE AND RIGHT CHEST MEDIPORT. BOWEL SOUNDS X 4, DISTENDED, MIDLY TENDER TO PALPATION. PATIENT IS MAXIMUM 2 PERSON ASSIST WITH TRANSFERS.
--- NOTE | 2018-09-04 15:49 | NUR ---
DR. CULVER AT BEDSIDE FOR EVALUATION. WANTS TO KEEP PT ON HOSPITAL VENTILATOR FOR ANOTHER DAY.
--- NOTE | 2018-09-04 20:57 | NUR ---
PATIENT RESTING QUIETLY IN BED. TRACH IN PLACE MIDLINE WITH VENT SET AT AC 16, TV 500, PEEP 5, FIO2 30% RESP EVEN AND UNLABORED. VERBALIZED BACK PAIN, MEDICATED AT 1600 FOR PAIN BY DAY SHIFT. REPOSITIONING SELF IN BED FOR COMFORT.
[2018-09-05 04:39] LABS: BASOPHILS ABSOLUTE AUTO 0.01 K/mm3 (0.00-0.23); BASOPHILS PERCENT AUTO 0 % (0-2); EOSINOPHILS ABSOLUTE AUTO 0.25 K/mm3 (0.00-0.68); EOSINOPHILS PERCENT AUTO 3 % (0-6); Hemoglobin 8.4 g/dL (11.5-16.0); IMMATURE GRAN PERCENT AUTO 1 % (0-1); LYMPHOCYTES ABSOLUTE AUTO 1.35 K/mm3 (0.84-5.20); LYMPHOCYTES PERCENT AUTO 17 % (21-46); MONOCYTES ABSOLUTE AUTO 0.33 K/mm3 (0.16-1.47); MONOCYTES PERCENT AUTO 4 % (4-13); Mean Corpuscular HGB 27.5 pg (26.0-34.0); Mean Corpuscular Volume 92 fL (80-100); Mean Platelet Volume 12.3 fL (9.1-12.4); NEUTROPHILS ABSOLUTE AUTO 5.97 K/mm3 (1.96-9.15); NEUTROPHILS PERCENT AUTO 75 % (41-73); Platelet Count 167 K/mm3 (150-400); RDW Coefficient Variation 15.9 % (11.7-14.2); RDW Standard Deviation 52.9 fL (35.1-46.3); Red Blood Cell Count 3.05 M/mm3 (3.80-5.20); White Blood Cell Count 8.01 K/mm3 (4.00-11.30)
[2018-09-05 04:58] LABS: Anion Gap 4 mmol/L (6-16); Blood Urea Nitrogen 14 mg/dL (8-24); Bun/Creatinine Ratio 16.6 (12.0-20.0); CO2, Blood 34 mmol/L (21-32); Calcium, Blood 8.2 mg/dL (8.5-10.1); Chloride, Blood 109 mmol/L (98-108); Creatinine, Blood 0.84 mg/dL (0.40-1.00); Glomerular Filtration Rate >60 (60-); Glucose, Blood 89 mg/dL (70-99); Potassium, Blood 3.8 mmol/L (3.5-5.5); Sodium, Blood 147 mmol/L (136-145); Vancomycin, Random 16.8 ug/mL
--- NOTE | 2018-09-05 06:11 | NUR ---
SUMMARY PATIENT RESTING QUIETLY. TRACH MIDLINE, WITH VENT SET AT AC 16, TV 500, PEEP 5 FIO2 30%, SUCTIONING CLEAR TO WHITE SPUTUM. PATIENT C/O RIGHT HIP, GROIN, BACK PAIN T/O NIGHT. HEATING PAD PLACED TO AREA, AND PATIENT MEDICATED WITH PRN MEDICATIONS. LEVOPHED DRIP REMAINS OFF T/O NIGHT.
--- NOTE | 2018-09-05 07:50 | NUR ---
ASSUMED CARE: PT RESTING IN BED. ON HOSPITAL VENT AT AC 16/500/30%/5. DR IBRAHIM CAME TO SEE PT. PT ASKING FOR PAIN MEDS AND MADE AWARE WHEN THEY ARE DUE AGAIN. NO FURTHER NEEDS AT THIS TIME.
--- NOTE | 2018-09-05 13:48 | NUR ---
PT STATED THIS AM THAT SHE WANTED TO GET UP INTO CHAIR LATER TODAY. OFFERED AT THIS TIME AND PT STATED "NOT RIGHT NOW." OFFERED BATH AND LINEN CHANGE. PT AGAIN SAID "NOT RIGHT NOW." PT DID ALLOW TRACH CARE WITH NEW DRESSING APPLIED BENEATH TRACH COLLAR. DR CULVER CAME IN TO SEE PT AND ORDERED TITRATION OF FIO2 TO CHANGE PT TO HOME VENT THIS AFTERNOON. PT AWARE THAT THE PLAN IS NOT TO DC HER TODAY BUT THE GOAL IS TO GET HER BACK ON HER HOME VENT SOON. RT STATES SHE IS ON HOME SETTINGS. SETTINGS AT AC 12/500/5/65%. FATHER AT BEDSIDE. NO FURTHER NEEDS AT THIS TIME
--- NOTE | 2018-09-05 18:26 | NUR ---
SHIFT SUMMARY: PT HAS BEEN SWITCHED TO HOME VENT AND HOME VENT SETTINGS. ADMINISTERING OXYCODONE AND ATIVAN FOR COMFORT. PT VERY ANXIOUS AT TIMES. POSSIBLE DC IN NEXT FEW DAYS. FATHER AT BEDSIDE T/O SHIFT. NO ACUTE NEEDS OR CONCERNS AT THIS TIME.
[2018-09-05 19:20] LABS: PCO2 Arterial 74.2 mmHg (35-45); PO2 Arterial 69.6 mmHg (80-100); pH Blood Arterial 7.34 (7.35-7.45)
--- NOTE | 2018-09-05 20:20 | NUR ---
DOCTOR PALOMO NOTIFIED OF ABG, PLAN TO KEEP ON HOME VENT TONIGHT AT CURRENT SETTINGS AND RECHECK ABG IN AM.
--- NOTE | 2018-09-05 22:16 | NUR ---
PATIENT RESTLESS, C/O LOW ABD/ RIGHT HIP PAIN REFUSING HEATING PAD. MEDICATED FOR PAIN ORDERED. TRACH MID LINE WITH HOME VENT WITH 4L BLEED IN. SUCTIONING THIN CLEAR TO WHITE SPUTUM. PATIENT REPOSITIONING SELF IN BED FOR COMFORT. PATIENT BARBARA PO WITHOUT DIFFICULTY.
[2018-09-06 04:03] LABS: BASOPHILS ABSOLUTE AUTO 0.01 K/mm3 (0.00-0.23); BASOPHILS PERCENT AUTO 0 % (0-2); EOSINOPHILS ABSOLUTE AUTO 0.35 K/mm3 (0.00-0.68); EOSINOPHILS PERCENT AUTO 3 % (0-6); Hematocrit 36.9 % (33.0-51.0); Hemoglobin 10.5 g/dL (11.5-16.0); IMMATURE GRAN ABSOLUTE AUTO 0.15 K/mm3 (0.00-0.10); IMMATURE GRAN PERCENT AUTO 1 % (0-1); LYMPHOCYTES ABSOLUTE AUTO 1.33 K/mm3 (0.84-5.20); LYMPHOCYTES PERCENT AUTO 12 % (21-46); MONOCYTES ABSOLUTE AUTO 0.63 K/mm3 (0.16-1.47); MONOCYTES PERCENT AUTO 6 % (4-13); Mean Corpuscular HGB 27.6 pg (26.0-34.0); Mean Corpuscular HGB Conc 28.5 g/dL (31.5-36.5); Mean Platelet Volume 11.3 fL (9.1-12.4); NEUTROPHILS PERCENT AUTO 78 % (41-73); Platelet Count 236 K/mm3 (150-400); RDW Coefficient Variation 16.2 % (11.7-14.2); RDW Standard Deviation 57.8 fL (35.1-46.3); White Blood Cell Count 11.17 K/mm3 (4.00-11.30)
[2018-09-06 04:10] LABS: Mean Corpuscular Volume 97 fL (80-100)
[2018-09-06 04:21] LABS: Anion Gap 1 mmol/L (6-16); Blood Urea Nitrogen 9 mg/dL (8-24); Bun/Creatinine Ratio 11.4 (12.0-20.0); CO2, Blood 41 mmol/L (21-32); Calcium, Blood 9.1 mg/dL (8.5-10.1); Chloride, Blood 106 mmol/L (98-108); Creatinine, Blood 0.79 mg/dL (0.40-1.00); Glomerular Filtration Rate >60 (60-); Glucose, Blood 82 mg/dL (70-99); Magnesium, Blood 2.1 mg/dL (1.6-2.4); Potassium, Blood 3.9 mmol/L (3.5-5.5); Sodium, Blood 148 mmol/L (136-145)
[2018-09-06 04:43] LABS: PCO2 Arterial 86.4 mmHg (35-45); PO2 Arterial 70.6 mmHg (80-100)
--- NOTE | 2018-09-06 04:59 | NUR ---
PATIENT MORE RESTLESS AND INCREASED CONFUSION. SEE ABG RESULTS, PATIENT PLACED BACK TO HOSPITAL VENT WITH SETTINGS AT SIMV 16 TV 500 PEEP5 PS 12 FIO2 30% PER RT.
--- NOTE | 2018-09-06 05:40 | NUR ---
SUMMARY PATIENT RESTLESS T/O NIGHT. CONTINUES TO C/O PAIN TO RIGHT HIP LOW ABD AREA. APPEARS MORE CONFUSED AND FORGETFUL THIS MORNING. DUE TO ABG RESULT PATIENT PLACED BACK TO HOSPITAL VENT FROM HER HOME VENT. VENT SET AT SIMV 12, TV 500, PEEP 5, PS 12, FIO2 30%. PATIENT APPEARS MORE RELAXED WITH VENT CHANGES. POWER GLIDE TO RIGHT UPPER ARM FLUSHES EASILY, BUT ONLY ABLE TO DRAW BACK 1 CC OF BLOOD AND UNABLE TO GET ENOUGH BLOOD FOR LAB DRAW, LAB WAS ABLE TO OBTAIN SPECIMEN
--- NOTE | 2018-09-06 07:30 | NUR ---
ASSUMED CARE: PT ON HOSPITAL VENT, AC 16/500/5/35%. BLOOD PRESSURES IN 70S-80S SYSTOLIC. LEVOPHED RESTARTED AT 2 MCG/MIN. DR IBRAHIM AT BEDSIDE AND AWARE. REPOSITIONED AND ATTENDS CHANGED. NO FURTHER NEEDS AT THIS TIME.
[2018-09-06 08:49] LABS: PCO2 Arterial 59.5 mmHg (35-45); PO2 Arterial 65.6 mmHg (80-100); pH Blood Arterial 7.43 (7.35-7.45)
--- NOTE | 2018-09-06 19:00 | NUR ---
[place] of Care: Patient sleeping, easily roused via verbal stimuli. On home vent per trach, settings to SIMV 12/400, pressure support of 10 with 4L/O2 bleed in. Denies dyspnea or SOB, O2-92-94%, VSS. Request pain medication at shift change, but willing to wait for allotted time given per EMAR, sleeping when not stimulated by staff, appears comfortable. Medi-port to rt upper chest patent and intact, infusing LR at 50ml/hr. Power-glide to NADER patent and intact, SL. Voiding in bed via bedpan without difficulty. Call light in reach, makes needs known. Will continue to monitor for pain, safety, comfort.
--- NOTE | 2018-09-06 19:20 | NUR ---
SHIFT SUMMARY: RT FROM [facility] [place] WAS HERE AND SWITCHED HOME VENT AND CHANGED OUT CONNECTIONS AND CIRCUITS WELL MACHINE TO SEE IF PT TOLERATES. DR CULVER STATES ABG TOMORROW AM. PORT AND PG DRESSINGS CHANGED THIS SHIFT. PT TOLERATED CHAIR FOR A COUPLE HOURS WITH 2 ASSIST. FATHER AT BEDSIDE MOST OF SHIFT. NO FURTHER NEEDS OR CONCERNS
--- NOTE | 2018-09-07 06:02 | NUR ---
Shift Summary: Patient slept well throughout shift. No changes to home vent throughout shift, O2-92-94%, denies dyspnea/SOB. Moderate amount of thick yellow secretions from trach tube. Patient intermittently alarmed for low minute ventilation when sleeping. Remains easy to rouse, alert and oriented, calm and cooperative with staff. Unable to draw blood from med-port or power-glide IV access sites, all labs combined with 0800 Vancomycin lab value. Some low blood pressures noted, but betty to normal limits when woken up for cares. Order obtained for Levophed gtt per Dr. Holland, but medication never infused. Tolerating PO fluids and food without difficulty. Will continue to monitor until report to day shift RN.
[2018-09-07 08:04] LABS: BASOPHILS ABSOLUTE AUTO 0.01 K/mm3 (0.00-0.23); BASOPHILS PERCENT AUTO 0 % (0-2); EOSINOPHILS ABSOLUTE AUTO 0.25 K/mm3 (0.00-0.68); EOSINOPHILS PERCENT AUTO 3 % (0-6); Hematocrit 30.5 % (33.0-51.0); Hemoglobin 8.9 g/dL (11.5-16.0); IMMATURE GRAN ABSOLUTE AUTO 0.06 K/mm3 (0.00-0.10); IMMATURE GRAN PERCENT AUTO 1 % (0-1); LYMPHOCYTES ABSOLUTE AUTO 1.26 K/mm3 (0.84-5.20); LYMPHOCYTES PERCENT AUTO 14 % (21-46); MONOCYTES ABSOLUTE AUTO 0.38 K/mm3 (0.16-1.47); MONOCYTES PERCENT AUTO 4 % (4-13); Mean Corpuscular HGB 27.6 pg (26.0-34.0); Mean Corpuscular HGB Conc 29.2 g/dL (31.5-36.5); Mean Corpuscular Volume 95 fL (80-100); Mean Platelet Volume 11.1 fL (9.1-12.4); NEUTROPHILS ABSOLUTE AUTO 7.26 K/mm3 (1.96-9.15); NEUTROPHILS PERCENT AUTO 79 % (41-73); Platelet Count 192 K/mm3 (150-400); RDW Standard Deviation 55.6 fL (35.1-46.3); Red Blood Cell Count 3.22 M/mm3 (3.80-5.20); White Blood Cell Count 9.22 K/mm3 (4.00-11.30)
[2018-09-07 08:19] LABS: Anion Gap 2 mmol/L (6-16); Blood Urea Nitrogen 13 mg/dL (8-24); CO2, Blood 36 mmol/L (21-32); Calcium, Blood 8.7 mg/dL (8.5-10.1); Chloride, Blood 105 mmol/L (98-108); Creatinine, Blood 0.87 mg/dL (0.40-1.00); Glomerular Filtration Rate >60 (60-); Glucose, Blood 76 mg/dL (70-99); Potassium, Blood 3.9 mmol/L (3.5-5.5); Sodium, Blood 143 mmol/L (136-145)
[2018-09-07 08:24] LABS: Vancomycin, Trough 15.6 ug/mL (5.0-10.0)
--- NOTE | 2018-09-07 09:37 | NUR ---
PT DOZING OFF AND ON, AWAKENS TO VOICE. C/O PAIN 8/10 TO RIGHT HIP AND ABD. OXY PO GIVEN ORDERED. PT C/O OF ANXIETY AND REQUEST ATIVAN, 0.5MG GIVEN IV. LUNGS CLEAR BUT VERY DIMINISHED T/O. PT ON HOME VENT, TOLERATING WELL. SBA TO BEDSIDE COMMODE FOR VOID. VERY WEAK. GOOD APPETITE. BP STABLE, LEVOPHED WAS NOT RESTARTED LAST NIGHT. DR IBRAHIM IN TO SEE PT THIS AM. PT'S FATHER AT BEDSIDE
--- NOTE | 2018-09-07 12:25 | NUR ---
SELVIN IN TO MAKE TO FOLLOWING CHANGES TO PT'S HOME VENT: RESP RATE INCREASED FROM 12 TO 16, PS INCREASED FROM [address] IBRAHIM AND DR SOLIS STATE PT IS OKAY TO BE DC'D HOME; BUT PT NEED OUT OF HOSP IV ANTIBIOTICS. CLINICAL BUSINESS MANAGER IS WORKING ON THIS; SHE MAY NOT BE DC'D HOME UNTIL TOMORROW.
--- NOTE | 2018-09-07 13:49 | NUR ---
PT TO BE TRANSFERED TO PCU 5, REPORT GIVEN TO TOAN PELAYO.
--- NOTE | 2018-09-07 14:30 | NUR ---
pt arrived to pcu 5 via bed, report from Vania PELAYO. Fatuma is settled in bed laying on her side watching tv and having a snack. vs stable. call light in reach.
--- NOTE | 2018-09-07 18:51 | NUR ---
pt sat up a bit and ate some dinner her dad brought her, she was medicated for pain and anxiety. no acute changes this shift. call light in reach.
--- NOTE | 2018-09-08 06:00 | NUR ---
PCU NOC SHIFT SUMMARY PATIENT ALERT AND ORIENTED X4. RESP E/U AT REST ON HOME VENT. PATIENT REPORTS ONGOING CHRONIC PAIN IN HER BACK AND HIPS T/O SHIFT THE SHE IS ORDERS NARCOTICS FOR - PATIENT REPORTS THAT SHE DOES NOT TAKE NOR IS SHE PRESCRIBED NARCOTIICS AT HOME. PATIENT USES BEDSIDE COMMODE, TOLERATES MODERATELY WELL. PATIENT REMAIN IN SINUS RHYTHM T/O SHIFT WITH NO CARDIAC EVENTS. PATIENT HAS TRACHEOSTOMY WITH HOME VENT USED - INLINE SUCTION IN PLACE USED BY PATIENT AND RESPIRTORY THERAPY. PATIENT ANXIOUS AT TIMES RELIEVED WITH MEDICATIONS. NO ACUTE EVENTS NOTED. PATIENT DOING WELL AND CLOSE TO IF NOT AT BASELINE. WILL CONTINUE TO MONITOR AND GIVE REPORT TO DAYSHIFT RN; CALL LIGHT W/I REACH.
--- NOTE | 2018-09-08 08:30 | NUR ---
PT IS A LITTLE ANXIOUS, BUT RESTING COMFORTABLY, SHE IS ABLE TO STAND AND TRANSFER TO THE BSC TO USE RESTROOM. PT ABLE TO EXPRESS NEEDS APPROPRIATELY BY MOUTHING THE WORDS. PT USING HOME VENT AT THIS TIME, O2 SAT >94% THROUGHOUT MORNING. FATHER AT BEDSIDE. WILL CONTINUE TO MONITOR AND ADMINISTER MEDS ORDERED.
--- NOTE | 2018-09-08 10:17 | NUR ---
Fatuma is sleeping soundly, on her left side, respirations even and unlabored. spo2 95 % and she does not awaken to my presence in the room, nor to my scanning of her ID bracelet.
--- NOTE | 2018-09-08 14:42 | NUR ---
TRANSFER OF CARE TO PIERCE CARTER: GAVE REPORT, DISCHARGE ORDERS RECEIVED AND WILL BE PROCESSED TO D/C PATIENT.
== END 2018-09-08 18:02 | disposition home or self-care (01) | DRG 4 ==
LOC: ER 08:19 → ICUW 10:36 → PCU 09-07 14:10
PROVIDERS: Emergency Medicine; Hospitalist; Internal Medicine Critical Care Medicine; Internal Medicine Pulmonary Disease; ADMIT Internal Medicine
PROC: 5A1945Z Respiratory Ventilation, 24-96 Consecutive Hours (ICD-10-PCS; principal; 2018-08-28)
PROC: 0B113F4 Bypass Trachea to Cutaneous with Tracheostomy Device, Percutaneous Approach (ICD-10-PCS; 2018-08-28)
PROC: 3E033XZ Introduction of Vasopressor into Peripheral Vein, Percutaneous Approach (ICD-10-PCS; 2018-08-28)
DX: A41.52 Sepsis due to Pseudomonas (principal); J96.21 Acute and chronic respiratory failure with hypoxia; G93.41 Metabolic encephalopathy; J96.22 Acute and chronic respiratory failure with hypercapnia; J69.0 Pneumonitis due to inhalation of food and vomit; J44.1 Chronic obstructive pulmonary disease with (acute) exacerbation; A41.02 Sepsis due to Methicillin resistant Staphylococcus aureus; R65.20 Severe sepsis without septic shock; K52.9 Noninfective gastroenteritis and colitis, unspecified; G89.29 Other chronic pain; F41.8 Other specified anxiety disorders; D63.8 Anemia in other chronic diseases classified elsewhere; Z93.0 Tracheostomy status; Z87.891 Personal history of nicotine dependence; M81.0 Age-related osteoporosis without current pathological fracture; K59.00 Constipation, unspecified
CPT/HCPCS: 31720; 36415; 36600; 51702; 70486; 71045; 74018; 80048; 80053; 80202; 81001; 82803; 83605; 83735; 84100; 84145; 85025; 85027; 87040; 87070; 87077; 87086; 87147; 87186; 87205; 87493; 87507; 93005; 93010; 94002; 94003; 94640; 94762; 96361-59; 96365-59; 96375-59; 99285-25; C1751; C9113; J0713; J1642; J1650; J2060; J2543; J2930; J3010; J3370; J7030; J7050; J7060; J7120; J7512; P9046

== ENCOUNTER 2018-09-30 11:41 | Inpatient (IN) | payer OTHER ==
[~2018-09-30] VITALS: Ht 165.1 cm; Wt 74.7 kg
[~2018-09-30 11:41] MED LIST changes: +LACT PO; -LACTOBACILLUS PO; +MUCUS RELIEF600 MG PO; -Mucus Relief400 MG PO
[2018-09-30 12:01] LABS: BASOPHILS ABSOLUTE AUTO 0.03 K/mm3 (0.00-0.23); BASOPHILS PERCENT AUTO 0 % (0-2); EOSINOPHILS ABSOLUTE AUTO 0.16 K/mm3 (0.00-0.68); EOSINOPHILS PERCENT AUTO 2 % (0-6); Hematocrit 35.1 % (33.0-51.0); Hemoglobin 10.2 g/dL (11.5-16.0); IMMATURE GRAN ABSOLUTE AUTO 0.03 K/mm3 (0.00-0.10); IMMATURE GRAN PERCENT AUTO 0 % (0-1); LYMPHOCYTES ABSOLUTE AUTO 0.86 K/mm3 (0.84-5.20); LYMPHOCYTES PERCENT AUTO 9 % (21-46); MONOCYTES ABSOLUTE AUTO 0.75 K/mm3 (0.16-1.47); MONOCYTES PERCENT AUTO 8 % (4-13); Mean Corpuscular HGB 27.6 pg (26.0-34.0); Mean Corpuscular HGB Conc 29.1 g/dL (31.5-36.5); Mean Corpuscular Volume 95 fL (80-100); Mean Platelet Volume 11.2 fL (9.1-12.4); NEUTROPHILS ABSOLUTE AUTO 7.89 K/mm3 (1.96-9.15); NEUTROPHILS PERCENT AUTO 81 % (41-73); Platelet Count 194 K/mm3 (150-400); RDW Coefficient Variation 16.6 % (11.7-14.2); RDW Standard Deviation 58.8 fL (35.1-46.3); Red Blood Cell Count 3.69 M/mm3 (3.80-5.20); White Blood Cell Count 9.72 K/mm3 (4.00-11.30)
[2018-09-30] MEDS ORDERED: PRED5 PO (12:02)
[2018-09-30 12:16] LABS: International Normalized Ratio 0.93; Prothrombin Time Results 9.8 Sec (9.7-11.5)
[2018-09-30 12:22] LABS: Albumin/Globulin Ratio 0.7 (0.8-1.8); Bilirubin, Total 0.3 mg/dL (0.1-1.0); Bun/Creatinine Ratio 14.2 (12.0-20.0); Calcium, Blood 9.1 mg/dL (8.5-10.1); Creatinine, Blood 1.06 mg/dL (0.40-1.00); Globulin, Blood 4.1 g/dL (2.2-4.0); Potassium, Blood 3.5 mmol/L (3.5-5.5); Total Protein, Blood 7.1 g/dL (6.4-8.2)
[2018-09-30 12:48] LABS: Source, Urine Catheter
[2018-09-30 12:57] LABS: Bilirubin, Urine Neg (Neg); Blood, Urine 2+ (Neg); Glucose Qualitative, Urine Neg (Neg); Ketones, Urine Neg (Neg); Leukocyte Esterase, Urine 2+ (Neg); Nitrite, Urine Pos (Neg); Protein, Urine 1+ (Neg); Specific Gravity, Urine 1.015 (1.003-1.022); Urobilinogen, Urine NORM (Normal)
[2018-09-30 13:30] LABS: Appearance, Urine Clear (Clear); Color, Urine Yellow (P-Yellow)
[2018-09-30 13:38] LABS: Bacteria Many /hpf; Red Blood Cells, Urine 0-2 /hpf (0-2)
[2018-09-30 13:41] LABS: Squamous Epithelial Cells Rare /hpf (Few)
[2018-09-30] MEDS ORDERED: TRAZ150T57 PO (14:09)
[2018-09-30] MEDS ORDERED: SALINE WOUND W210 ML PT (14:17)
[2018-09-30 16:03] LABS: PCO2 Arterial 55.9 mmHg (35-45); PO2 Arterial 71.6 mmHg (80-100)
--- NOTE | 2018-09-30 17:30 | NUR ---
REPORT RECIEVED FROM ZOHAIB YAO RN. PT ARRIVED VIA STRETCHER. PT IS SOMULENT, AWAKENS TO VERBAL STIMULI. PT WAS SLID TO BED. EXTRA LINEN REMOVED. PT GOES BACK TO SLEEP WITHOUT STIMULI. PT REPORTS SHE IS HAVING PAIN IN HER RIGHT HIP, SHE DOESN'T STAY AWAKE LONG ENOUGH TO RATE HER PAIN. HRR. LS DIM IN THE LEFT, EXP WHEEZING IN THE RIGHT SIDE. BIOX WNL ON HOME VENT, PT HAS CHRONIC TRACH. VENT MODE SIMV, TV 500, PEEP 5, PRESSURE SUPPORT 12, BI-PAP BACK UP RATE 6. BIOX WNL WITH 6L VIA BLEED IN. BT+. ABD DISTENDED, NON-TENDER TO PALPATION. PPP. PT HAS SCATTERED CUTS ON HER UPPER AND LOWER EXTREMITIES, PTS DAD STATES IT IS FROM HER DOGS. PT IS RESTING WITH EYES CLOSED. RESP THERAPY AT BEDSIDE GETTING HUMIDIFICATION SET UP. CALL LIGHT IN REACH, WILL CONTINUE TO MONITOR.
--- NOTE | 2018-09-30 19:00 | NUR ---
REPORT GIVEN TO VICKI PELAYO. PULM CONSULT CALLED INTO [facility]. PT CONTINUES TO REST WITH EYES CLOSED. DAD AT BEDSIDE.
--- NOTE | 2018-09-30 21:07 | NUR ---
Assumed care of pt at approx 1900. Pt laying in bed with eyes closed, responds to verbal. unable to state name or date of , appears very lethargic. per day RN, lethergy is consistant with previous per assessment nurse. Pt hypotensive at 88/60, pt laying on right side at time of BP assessment, attempted to move pt to supine with little success for BP. MAP>65. o2>90% with home vent settings with 6L bleed in. No events on tele. Father at bedside with pt. Call light in reach, instructed pt on using call light, continue to reinforce. Attempted to give PO medications, pt too lethargic to take at this time. Will reassess and update. Bed in lowest and locked position. Bynum patent and draining. Pt with scattered scratches and scabs throughout all extremities, per pt's father the scratches and scabs are from pt's dog at home. See shift assessment for detailed assessment. Will continue to monitor and update as needed.
[2018-10-01 04:20] LABS: BASOPHILS ABSOLUTE AUTO 0.01 K/mm3 (0.00-0.23); BASOPHILS PERCENT AUTO 0 % (0-2); EOSINOPHILS ABSOLUTE AUTO 0.01 K/mm3 (0.00-0.68); EOSINOPHILS PERCENT AUTO 0 % (0-6); Hematocrit 30.8 % (33.0-51.0); Hemoglobin 9.4 g/dL (11.5-16.0); Mean Corpuscular HGB 27.8 pg (26.0-34.0); Mean Corpuscular HGB Conc 30.5 g/dL (31.5-36.5); Mean Platelet Volume 11.2 fL (9.1-12.4); Platelet Count 165 K/mm3 (150-400); RDW Coefficient Variation 16.3 % (11.7-14.2); RDW Standard Deviation 54.8 fL (35.1-46.3); Red Blood Cell Count 3.38 M/mm3 (3.80-5.20); White Blood Cell Count 9.33 K/mm3 (4.00-11.30)
[2018-10-01 04:28] LABS: IMMATURE GRAN ABSOLUTE AUTO 0.04 K/mm3 (0.00-0.10); IMMATURE GRAN PERCENT AUTO 0 % (0-1); LYMPHOCYTES ABSOLUTE AUTO 0.47 K/mm3 (0.84-5.20); LYMPHOCYTES PERCENT AUTO 5 % (21-46); MONOCYTES ABSOLUTE AUTO 0.06 K/mm3 (0.16-1.47); MONOCYTES PERCENT AUTO 1 % (4-13); Mean Corpuscular Volume 91 fL (80-100); NEUTROPHILS ABSOLUTE AUTO 8.74 K/mm3 (1.96-9.15); NEUTROPHILS PERCENT AUTO 94 % (41-73)
[2018-10-01 04:34] LABS: Anion Gap 4 mmol/L (6-16); Blood Urea Nitrogen 16 mg/dL (8-24); CO2, Blood 36 mmol/L (21-32); Calcium, Blood 8.2 mg/dL (8.5-10.1); Chloride, Blood 101 mmol/L (98-108); Creatinine, Blood 0.89 mg/dL (0.40-1.00); Glomerular Filtration Rate >60 (60-); Glucose, Blood 135 mg/dL (70-99); Potassium, Blood 3.4 mmol/L (3.5-5.5); Sodium, Blood 141 mmol/L (136-145)
--- NOTE | 2018-10-01 05:16 | NUR ---
SHIFT SUMMARY: PATIENT DISLOGED TUBING FROM VENT THIS SHIFT AND BECAME VERY ANXIOUS, TUBING FIXED AND MD MADE AWARE WITH ORDERS RECIEVED. PRN MEDICATION ADMINISTERED, VSS, CALL LIGHT WITHIN REACH BUT NOT ALWAYS USED APPROPRIATLY, BED LOW AND LOCKED, FREQUENT OBSERVATION AND ROUNDING OBSERVED.
[2018-10-01 09:04] LABS: U Amphetamine Screen Not Detected; U Barbituate Screen Not Detected; U Benzodiazapine Screen DETECTED; U Buprenorphine Screen Not Detected; U Cannabinoids Screen Not Detected; U Cocaine Screen Not Detected; U Methadone Screen Not Detected; U Methamphetamine Screen Not Detected; U Opiates Screen DETECTED; U Oxycodone Screen Not Detected; U Phencyclidine Screen Not Detected; U Propoxyphene Screen Not Detected
--- NOTE | 2018-10-01 17:46 | NUR ---
PT RESTING IN BED. 5L O2 ON VENT. VSS T/O SHIFT. PT ABLE TO MOVE SELF IN AND DIRECTILY AROUND BED. DONE WELL UP TO BEDSIDE COMMODE. DR CULVER CONSULTED TODAY. MED ADJUSTMENTS MADE. DAD IN RM FOR MOST OF THE DAY. PT WITH LITTLE APPETITE, REFUSES DINNER, DINNER LEFT IN RM, DAD WILL ENCOURAGE LATER. NO OTHER ACUTE CHANGES THIS SHIFT. CONT TO MONITOR AND REPORT OFF TO PM RN.
--- NOTE | 2018-10-01 23:10 | NUR ---
Assumed care of pt at approx 1915, VSS, pt sleeping at time of arrival. Breathing via trach with home vent. O2 saturations >90% on current vent settings with 7L bleed in. Suctioned trach with inline suction, pt stated relief. Pt states pain 11/15, [place] and lyrica given per JUL with no stated effectiveness, ativan given per jul for anxiety, pt able to sleep after ativan given. See shift assessment for detailed assessment. Pt in no apparent sign of distress, able to make needs known, uses call light appropriately, call light within reach, bed in lowest and locked position. Will continue to monitor
[2018-10-02 04:12] LABS: BASOPHILS ABSOLUTE AUTO 0.01 K/mm3 (0.00-0.23); BASOPHILS PERCENT AUTO 0 % (0-2); EOSINOPHILS ABSOLUTE AUTO 0.02 K/mm3 (0.00-0.68); EOSINOPHILS PERCENT AUTO 0 % (0-6); Hematocrit 29.3 % (33.0-51.0); Hemoglobin 9.1 g/dL (11.5-16.0); IMMATURE GRAN ABSOLUTE AUTO 0.04 K/mm3 (0.00-0.10); IMMATURE GRAN PERCENT AUTO 1 % (0-1); LYMPHOCYTES ABSOLUTE AUTO 1.21 K/mm3 (0.84-5.20); LYMPHOCYTES PERCENT AUTO 15 % (21-46); MONOCYTES ABSOLUTE AUTO 0.46 K/mm3 (0.16-1.47); MONOCYTES PERCENT AUTO 6 % (4-13); Mean Corpuscular HGB 27.7 pg (26.0-34.0); Mean Corpuscular HGB Conc 31.1 g/dL (31.5-36.5); Mean Corpuscular Volume 89 fL (80-100); Mean Platelet Volume 11.3 fL (9.1-12.4); NEUTROPHILS ABSOLUTE AUTO 6.29 K/mm3 (1.96-9.15); NEUTROPHILS PERCENT AUTO 78 % (41-73); Platelet Count 173 K/mm3 (150-400); RDW Coefficient Variation 16.9 % (11.7-14.2); RDW Standard Deviation 55.7 fL (35.1-46.3); Red Blood Cell Count 3.28 M/mm3 (3.80-5.20); White Blood Cell Count 8.03 K/mm3 (4.00-11.30)
[2018-10-02 04:28] LABS: Albumin, Blood 2.5 g/dL (3.4-5.0); Anion Gap 7 mmol/L (6-16); Blood Urea Nitrogen 19 mg/dL (8-24); Bun/Creatinine Ratio 20.7 (12.0-20.0); CO2, Blood 31 mmol/L (21-32); Calcium, Blood 8.7 mg/dL (8.5-10.1); Chloride, Blood 107 mmol/L (98-108); Creatinine, Blood 0.92 mg/dL (0.40-1.00); Glomerular Filtration Rate >60 (60-); Glucose, Blood 98 mg/dL (70-99); Magnesium, Blood 2.2 mg/dL (1.6-2.4); Phosphorus, Blood 2.1 mg/dL (2.5-4.9); Sodium, Blood 145 mmol/L (136-145)
--- NOTE | 2018-10-02 05:19 | NUR ---
Shift Summary No acute changes this shift. VSS. Pt denies SOB. Pt slept throughout the shift. Pt uses call light appropriatly, call light in reach, bed in lowest and locked position. Pt remains alert and oriented, no changes since initial assessment at begining of shift. Pt without complaints at this time. Will continue to monitor and update as needed.
--- NOTE | 2018-10-02 15:14 | NUR ---
RECEIVED REPORT AT AM SHIFT CHANGE AND ASSUMED CARE OF PATIENT. SHE IS AWAKE AND EXPRESSES THAT SHE IS HAVING PAIN, ADMINISTERED MEDICATIONS PER EMAR AND WILL CONTINUE TO MONITOR. PT USING HOME VENT SET UP WITH 7 L O2 BLEED IN. PT ABLE TO EXPRESS NEEDS APPROPRIATELY, BED IS LOCKED AND LOW, CALL LIGHT WITHIN EASY REACH. WILL CONTINUE TO MONITOR AND FOLLOW ORDERS.
--- NOTE | 2018-10-02 18:27 | NUR ---
SUMMARY: PT HAD A GOOD DAY, SHE HAS BEEN UP AND DOWN TO BSC WHEN NEEDED, WELL WORKED WITH PT TODAY. PT TOLERATED WELL. SHE CONTINUES TO USE HOME TRACH WITH A 4-7 LPM O2 BLEED IN. PT HAS C/O PAIN DURING THE SHIFT OFF AND ON - MEDICATED PER EMAR. WILL CONTINUE TO MONITOR AND GIVE REPORT TO NOC RN. BED LOCKED AND LOW, CALL LIGHT WITHIN EASY REACH.
--- NOTE | 2018-10-03 00:37 | NUR ---
Assumed care of pt at approx 1910. VSS. Pt in no apparent sign of distress. No events on tele, breathing easy and unlabored. Pt denies need for suction, pt denies SOB. To [facility] this shift to void, tolorates well as at baseline. Pt complaint of pain 7-9/10 unrelieved by multiple pain relief medications. Alternative forms of pain mangement offered to pt.Pt is alert and oriented, makes needs known, uses call light appropriately, bed in lowest and locked position. See shift assessment for detailed assessment. Will continue to monitor and update as needed.
[2018-10-03 03:52] LABS: BASOPHILS ABSOLUTE AUTO 0.02 K/mm3 (0.00-0.23); BASOPHILS PERCENT AUTO 0 % (0-2); EOSINOPHILS ABSOLUTE AUTO 0.08 K/mm3 (0.00-0.68); EOSINOPHILS PERCENT AUTO 1 % (0-6); Hematocrit 30.2 % (33.0-51.0); Hemoglobin 9.1 g/dL (11.5-16.0); IMMATURE GRAN ABSOLUTE AUTO 0.03 K/mm3 (0.00-0.10); IMMATURE GRAN PERCENT AUTO 0 % (0-1); LYMPHOCYTES ABSOLUTE AUTO 1.55 K/mm3 (0.84-5.20); LYMPHOCYTES PERCENT AUTO 21 % (21-46); MONOCYTES ABSOLUTE AUTO 0.41 K/mm3 (0.16-1.47); MONOCYTES PERCENT AUTO 6 % (4-13); Mean Corpuscular HGB 27.5 pg (26.0-34.0); Mean Corpuscular HGB Conc 30.1 g/dL (31.5-36.5); Mean Corpuscular Volume 91 fL (80-100); Mean Platelet Volume 10.6 fL (9.1-12.4); NEUTROPHILS ABSOLUTE AUTO 5.14 K/mm3 (1.96-9.15); NEUTROPHILS PERCENT AUTO 71 % (41-73); Platelet Count 170 K/mm3 (150-400); RDW Coefficient Variation 17.4 % (11.7-14.2); RDW Standard Deviation 58.2 fL (35.1-46.3); Red Blood Cell Count 3.31 M/mm3 (3.80-5.20); White Blood Cell Count 7.23 K/mm3 (4.00-11.30)
[2018-10-03 04:07] LABS: Albumin, Blood 2.4 g/dL (3.4-5.0); Anion Gap 5 mmol/L (6-16); Blood Urea Nitrogen 22 mg/dL (8-24); Bun/Creatinine Ratio 18.3 (12.0-20.0); CO2, Blood 32 mmol/L (21-32); Calcium, Blood 8.4 mg/dL (8.5-10.1); Chloride, Blood 111 mmol/L (98-108); Glomerular Filtration Rate 50 (60-); Glucose, Blood 96 mg/dL (70-99); Phosphorus, Blood 3.1 mg/dL (2.5-4.9); Potassium, Blood 3.3 mmol/L (3.5-5.5); Sodium, Blood 148 mmol/L (136-145)
--- NOTE | 2018-10-03 05:32 | NUR ---
Shift Summary No acute changes. VSS. no events on tele. Breathing remains easy and unlabored, denies SOB, continues to c/o 7-9/10 pain and medicated per emar. This RN attempted multiple times to supply alternative forms of pain relief this shift such as heat therapy, distration, relaxation methods, and education. Pt continues to recieve IV pain relief with little effectiveness stated by pt. Plan is for possible D/C today. Pt remains alert and oriented, calls appropriately, makes needs known, bed in lowest and locked position, SBA to BS for voiding. Will continue to monitor and update. Pt currently sleeping with call light in reach.
--- NOTE | 2018-10-03 12:58 | NUR ---
RECEIVED REPORT AND ASSUMED CARE OF PATIENT. SHE IS ALERT AND ABLE TO EXPRESS HER NEEDS APPROPRIATELY. PT ANXIOUS AND EXPRESSES CONCERN AND FRUSTRATION WITH NOT GOING HOME RIGHT AWAY THIS MORNING. ADMINISTERED K+ AND FLUIDS AND WILL AWAIT LAB RECHECK THIS AFTERNOON PER DR. DEAN. PAIN MANAGEMENT HAS BEEN A CONTINUUM OVER THE LAST COUPLE OF DAYS, PT ASKS FOR PAIN MEDICATION NEARLY ONCE EACH HOUR. EDUCATED PATIENT ON ORDERS FOR Q4 PRN COVERAGE, EXPLAINED PAIN BOARD IN ROOM FOR TIME OF PAIN MEDICATION AVAILABILITY. FOLLOWING ORDERS PER EMAR AND WILL CONTINUE TO MONITOR AND ASSESS PAIN WHEN PT ASKS FOR PAIN MEDICATION.
[2018-10-03 17:39] LABS: Albumin, Blood 2.4 g/dL (3.4-5.0); Anion Gap 6 mmol/L (6-16); Blood Urea Nitrogen 15 mg/dL (8-24); Bun/Creatinine Ratio 13.4 (12.0-20.0); CO2, Blood 28 mmol/L (21-32); Calcium, Blood 7.9 mg/dL (8.5-10.1); Chloride, Blood 105 mmol/L (98-108); Creatinine, Blood 1.12 mg/dL (0.40-1.00); Glomerular Filtration Rate 54 (60-); Glucose, Blood 396 mg/dL (70-99); Phosphorus, Blood 3.3 mg/dL (2.5-4.9); Sodium, Blood 139 mmol/L (136-145)
--- NOTE | 2018-10-03 18:45 | NUR ---
SPOKE WITH DR. DEAN SHE IS DISCHARGING PATIENT HOME. PERSCRIPTIONS BEING SENT TO [facility] IN [place]. PT FATHER AT BEDSIDE AND BOTH ARE ANXIOUS TO GO HOME. PT HAS CONTINUE TO HAVE A GOOD DAY, SHE HAS USED PAIN MEDICATIONS Q4 HOURS TO TREAT CHRONIC PAIN. WILL CONTINUE TO MONITOR AND COMPLETE DISCHARGE FOR PATIENT. BED LOCKED AND LOW AND CALL LIGHT WITHIN EASY REACH.
[2018-10-03] MEDS ORDERED: SODIUM CHLORIDE10 ML INH (18:55)
[2018-10-03] MEDS ORDERED: Augmentin 875-1 EACH PO (18:56)
== END 2018-10-03 19:25 | disposition home or self-care (01) | DRG 871 ==
LOC: ER 11:41 → PCU 16:13
PROVIDERS: Emergency Medicine; ADMIT Internal Medicine
DX: A41.51 Sepsis due to Escherichia coli [E. coli] (principal); J96.21 Acute and chronic respiratory failure with hypoxia; J96.22 Acute and chronic respiratory failure with hypercapnia; G92 Toxic encephalopathy; N39.0 Urinary tract infection, site not specified; Z93.0 Tracheostomy status; R65.20 Severe sepsis without septic shock; F41.8 Other specified anxiety disorders; G89.4 Chronic pain syndrome; G25.81 Restless legs syndrome; I10 Essential (primary) hypertension; M81.0 Age-related osteoporosis without current pathological fracture; Z87.891 Personal history of nicotine dependence; E87.6 Hypokalemia; J43.9 Emphysema, unspecified; E83.39 Other disorders of phosphorus metabolism
CPT/HCPCS: 31720; 36415; 36600; 51702; 71045; 80048; 80053; 80069; 81001; 82803; 83605; 83735; 83880; 84145; 85025; 85610; 85730; 87077; 87086; 87186; 93005; 93010; 93971; 94640; 94762; 96361-59; 96365-59; 96366-59; 96367-59; 97163; 97166; 97530; 99285-25; J0456; J1650; J1956; J2543; J2930; J3010; J7030; J7050; J7060; J7070; J7120; J7512

== ENCOUNTER 2018-10-15 18:16 | Observation (INO) | payer OTHER ==
[~2018-10-15] VITALS: Ht 160 cm; Wt 64.5 kg
[~2018-10-15 18:16] MED LIST changes: +Augmentin 875-1 EACH PO; +SALINE WOUND W210 ML PT; +SODIUM CHLORIDE10 ML INH
[2018-10-15 19:11] LABS: BASOPHILS ABSOLUTE AUTO 0.06 K/mm3 (0.00-0.23); BASOPHILS PERCENT AUTO 1 % (0-2); EOSINOPHILS ABSOLUTE AUTO 0.05 K/mm3 (0.00-0.68); EOSINOPHILS PERCENT AUTO 1 % (0-6); Hematocrit 35.2 % (33.0-51.0); Hemoglobin 10.2 g/dL (11.5-16.0); IMMATURE GRAN ABSOLUTE AUTO 0.03 K/mm3 (0.00-0.10); IMMATURE GRAN PERCENT AUTO 0 % (0-1); LYMPHOCYTES ABSOLUTE AUTO 1.09 K/mm3 (0.84-5.20); LYMPHOCYTES PERCENT AUTO 11 % (21-46); MONOCYTES ABSOLUTE AUTO 0.36 K/mm3 (0.16-1.47); MONOCYTES PERCENT AUTO 4 % (4-13); Mean Corpuscular HGB 27.5 pg (26.0-34.0); Mean Platelet Volume 11.4 fL (9.1-12.4); NEUTROPHILS PERCENT AUTO 84 % (41-73); Platelet Count 209 K/mm3 (150-400); RDW Coefficient Variation 15.6 % (11.7-14.2); RDW Standard Deviation 54.1 fL (35.1-46.3); Red Blood Cell Count 3.71 M/mm3 (3.80-5.20); White Blood Cell Count 9.99 K/mm3 (4.00-11.30)
[2018-10-15 19:15] LABS: PCO2 Arterial 64.7 mmHg (35-45); PO2 Arterial 51.1 mmHg (80-100); pH Blood Arterial 7.45 (7.35-7.45)
[2018-10-15 19:15] LABS: Mean Corpuscular Volume 95 fL (80-100)
[2018-10-15 19:34] LABS: Alanine Aminotransfer (ALT/SGP 15 U/L (12-78); Albumin/Globulin Ratio 0.8 (0.8-1.8); Alk Phos 86 U/L (50-136); Anion Gap 3 mmol/L (6-16); Aspartate Aminotrans (AST/SGOT 17 U/L (12-37); Bilirubin, Total 0.2 mg/dL (0.1-1.0); Blood Urea Nitrogen 10 mg/dL (8-24); Bun/Creatinine Ratio 12.2 (12.0-20.0); CO2, Blood 39 mmol/L (21-32); Calcium, Blood 9.5 mg/dL (8.5-10.1); Chloride, Blood 101 mmol/L (98-108); Creatinine, Blood 0.82 mg/dL (0.40-1.00); Glomerular Filtration Rate >60 (60-); Glucose, Blood 122 mg/dL (70-99); Potassium, Blood 4.5 mmol/L (3.5-5.5); Sodium, Blood 143 mmol/L (136-145)
[2018-10-15 21:02] LABS: Source, Urine Clean Catch
[2018-10-15 21:04] LABS: Bilirubin, Urine Neg (Neg); Blood, Urine Neg (Neg); Glucose Qualitative, Urine Neg (Neg); Ketones, Urine Neg (Neg); Leukocyte Esterase, Urine 1+ (Neg); Nitrite, Urine Neg (Neg); Protein, Urine 3+ (Neg); Urobilinogen, Urine NORM (Normal)
[2018-10-15 21:11] LABS: Appearance, Urine Clear (Clear); Color, Urine Yellow (P-Yellow)
[2018-10-15 21:17] LABS: Squamous Epithelial Cells Rare /hpf (Few); White Blood Cells, Urine 0-2 /hpf (0-5)
[2018-10-15 21:18] LABS: Red Blood Cells, Urine Rare /hpf (0-2)
[2018-10-15 21:23] LABS: Bacteria Few /hpf
[2018-10-15 21:24] LABS: Amorphous Light (0-Heavy); Calcium Oxalate Crystals Few /hpf
--- NOTE | 2018-10-16 02:42 | NUR ---
AT 0200 PATIENT ARRIVED TO ICU FROM ED VIA GURNEY, PATIENT TRANSFERRED TO BED USING SLIDER SHEET AND PLACED ON ICU MONITORS. TRACH MIDLINE WITH HOME VENT IN PLACE WITH 2L OXYGEN BLEED IN. PATIENT ABLE TO MOUTH WORDS TO MAKE NEEDS KNOWN. PATIENT REQUESTING A "SHOT" PATIENT VERBALIZED HAVING PAIN TO LEFT FOOT, AND FEELING ANXIOUS. PATIENT NOW RESTING QUIETLY WITH HOME VENT IN PLACE.
[2018-10-16 03:13] LABS: Adenovirus Not Detected (NOT DETECT); Bordetella pertussis Not Detected (NOT DETECT); Chlamydophila pneumoniae Not Detected (NOT DETECT); Coronavirus 229E Not Detected (NOT DETECT); Coronavirus HKU1 Not Detected (NOT DETECT); Coronavirus NL63 Not Detected (NOT DETECT); Coronavirus OC43 Not Detected (NOT DETECT); Human Metapneumovirus Not Detected (NOT DETECT); Human Rhinovirus/Enterovirus Not Detected (NOT DETECT); Influenza A Not Detected (NOT DETECT); Influenza A/2009-H1 Not Detected (NOT DETECT); Influenza A/H1 Not Detected (NOT DETECT); Influenza A/H3 Not Detected (NOT DETECT); Influenza B Not Detected (NOT DETECT); Mycoplasma pneumoniae Not Detected (NOT DETECT); Parainfluenza Virus 1 Not Detected (NOT DETECT); Parainfluenza Virus 2 Not Detected (NOT DETECT); Parainfluenza Virus 3 Not Detected (NOT DETECT); Parainfluenza Virus 4 Not Detected (NOT DETECT); Respiratory Syncytial Virus Not Detected (NOT DETECT)
[2018-10-16 04:18] LABS: Hematocrit 33.5 % (33.0-51.0); Mean Corpuscular HGB Conc 29.9 g/dL (31.5-36.5); Mean Corpuscular Volume 94 fL (80-100); Mean Platelet Volume 11.2 fL (9.1-12.4); Platelet Count 202 K/mm3 (150-400); RDW Coefficient Variation 15.2 % (11.7-14.2); RDW Standard Deviation 52.5 fL (35.1-46.3); Red Blood Cell Count 3.57 M/mm3 (3.80-5.20); White Blood Cell Count 9.17 K/mm3 (4.00-11.30)
[2018-10-16 04:37] LABS: Alanine Aminotransfer (ALT/SGP 14 U/L (12-78); Albumin, Blood 2.9 g/dL (3.4-5.0); Albumin/Globulin Ratio 0.8 (0.8-1.8); Alk Phos 85 U/L (50-136); Anion Gap 4 mmol/L (6-16); Aspartate Aminotrans (AST/SGOT 9 U/L (12-37); Bilirubin, Total 0.4 mg/dL (0.1-1.0); Blood Urea Nitrogen 18 mg/dL (8-24); Bun/Creatinine Ratio 24.8 (12.0-20.0); CO2, Blood 36 mmol/L (21-32); Calcium, Blood 9.6 mg/dL (8.5-10.1); Chloride, Blood 102 mmol/L (98-108); Creatinine, Blood 0.73 mg/dL (0.40-1.00); Globulin, Blood 3.8 g/dL (2.2-4.0); Glomerular Filtration Rate >60 (60-); Glucose, Blood 141 mg/dL (70-99); Potassium, Blood 3.6 mmol/L (3.5-5.5); Sodium, Blood 142 mmol/L (136-145); Total Protein, Blood 6.7 g/dL (6.4-8.2)
--- NOTE | 2018-10-16 05:48 | NUR ---
SUMMARY PATIENT RESTING QUIETLY APPEARS TO BE SLEEPING WITH HOME VENT IN PLACE TO TRACH. SUCTIONING SMALL AMT OF WHITE SPUTUM. WHEN AWAKE PATIENT C/O FEELING ANXIOUS. VSS
--- NOTE | 2018-10-16 09:40 | NUR ---
0800: ASSESSMENT COMPLETED. PT RESTING IN BED, DENIES C/O AT THIS TIME, LS CLEAR, DIMINISHED IN BASES, VSS. SPO2 LOW 90'S ON 2L PER VENT, HOME VENT SETTINGS SIMV Vt 500, PEEP 5, RATE 16. TRACH INSERTION SITE WELL HEALED WITH NO BLEEDING OR S/SX INFECTION NOTED. SMALL AMOUNT OF WHITE SECRETIONS FROM T TUBE. NS 75ML/HR PER ORDERS. DR. IBRAHIM AT BEDSIDE TO ASSESS. 0900: SPO2 88-90%, OXYGEN INCEREASED TO 4L/VENT, SPO2 INCREASED TO 93%. 0945: PT TOLERATED PO MEDICATIONS WELL WITH JUICE. REPORTS AT THIS TIME THAT SHE IS HAVING DIFFICULTY BREATHING, FINE EXPIRATORY WHEEZES AUSCULTATED T/O, RT NOTIFIED FOR NEB TREATMENT. O2 UP TO 5L AT THIS TIME FOR COMFORT, SPO2 95-97%. PT STATES 5L IS HER BASELINE O2 LEVEL AT HOME.
--- NOTE | 2018-10-16 10:03 | NUR ---
PT ANXIOUS, STATES SHE IS HAVING DIFFICULTY BREATHING. SPO2 97%, LS HAVE CLEARED AFTER NEB TREATMENT, HR 110'S, DR. IBRAHIM NOTIFIED, NEW ORDER RECEIVED. WILL MEDICATE SOON ATIVAN IS AVAILABLE.
--- NOTE | 2018-10-16 10:43 | NUR ---
PT SLEEPING AT THIS TIME, HR 90'S, SPO2 96% 5L/VENT. SELVIN AT BEDSIDE TO CHECK PT'S HOME VENTILLATOR.
--- NOTE | 2018-10-16 11:42 | NUR ---
PT CONTINUES TO SLEEP, HR 70'S NSR, SPO2 97%. SELVIN CHECKED PT'S HOME VENT, NO SETTING CHANGES MADE, DR. CULVER APPROVED PT'S DISCHARGE TO HOME AT THIS TIME, DR. IBRAHIM NOTIFIED, ATTEMPTING TO ARRANGE PT'S RIDE HOME.
--- NOTE | 2018-10-16 12:51 | NUR ---
1200: PT REASSESSED, VSS AT THIS TIME, LS DIM BUT CLEAR. HR 70'S NSR, PT DENIES C/O AT THIS TIME. PREPARING FOR DC TO HOME. 1235: PT'S FATHER AT BEDSIDE, DC INSTRUCTIONS GIVEN TO PT AND FATHER, BOTH VERBALIZE UNDERSTANDING. IV DC'D WITH TIP INTACT, PRESSURE DRESSING APPLIED, MONITOR DC'D. PT DRESSED, DC TO HOME AT THIS TIME ON HOME VENT, SETTINGS SIMV Vt 500, PEEP 5, BACKUP RATE 16, 5L OXYGEN BLEED IN. LS REMAIN CLEAR BUT DIMINISHED, NO WHEEZES NOTED, SPO2 96%. PT TO HOME WITH FATHER TO DRIVE, ASSISTED TO CAR VIA WC BY STAFF, HOME VENT IN WORKING ORDER WITH HOME OXYGEN BLEED IN.
== END 2018-10-16 12:36 | disposition home or self-care (01) ==
LOC: ER 18:16 → ERHOLD 18:17 → ICUW 18:17 → ER 21:48 → ERHOLD 21:48 → ICUW 21:48 → ERHOLD 10-16 01:19 → ICUW 10-16 02:19
PROVIDERS: Emergency Medicine; ADMIT Internal Medicine
DX: J96.22 Acute and chronic respiratory failure with hypercapnia (principal); J44.1 Chronic obstructive pulmonary disease with (acute) exacerbation; F41.9 Anxiety disorder, unspecified; G89.29 Other chronic pain; I10 Essential (primary) hypertension; M81.0 Age-related osteoporosis without current pathological fracture; C53.9 Malignant neoplasm of cervix uteri, unspecified; Z79.899 Other long term (current) drug therapy
CPT/HCPCS: 31720; 36415; 36600; 71045; 80053; 81001; 82803; 83605; 84145; 84484; 85025; 85027; 87070; 87077; 87086; 87186; 87205; 87486; 87581; 87633; 87798; 93005; 93010; 94640; 96365; 96372-59; 96375; 99285-25; G0378; J0692; J1650; J2060; J2310; J2930; J7030; P9612

== ENCOUNTER 2018-11-14 20:23 | Inpatient (IN) | payer OTHER ==
[~2018-11-14] VITALS: Ht 162.6 cm; Wt 67.4 kg
[2018-11-14 21:02] LABS: BASOPHILS ABSOLUTE AUTO 0.06 K/mm3 (0.00-0.23); BASOPHILS PERCENT AUTO 1 % (0-2); EOSINOPHILS ABSOLUTE AUTO 0.07 K/mm3 (0.00-0.68); EOSINOPHILS PERCENT AUTO 1 % (0-6); Hematocrit 34.3 % (33.0-51.0); Hemoglobin 10.3 g/dL (11.5-16.0); IMMATURE GRAN ABSOLUTE AUTO 0.03 K/mm3 (0.00-0.10); IMMATURE GRAN PERCENT AUTO 0 % (0-1); LYMPHOCYTES ABSOLUTE AUTO 1.02 K/mm3 (0.84-5.20); LYMPHOCYTES PERCENT AUTO 9 % (21-46); MONOCYTES ABSOLUTE AUTO 0.48 K/mm3 (0.16-1.47); MONOCYTES PERCENT AUTO 4 % (4-13); Mean Corpuscular HGB 28.7 pg (26.0-34.0); Mean Corpuscular Volume 96 fL (80-100); Mean Platelet Volume 11.2 fL (9.1-12.4); NEUTROPHILS ABSOLUTE AUTO 9.71 K/mm3 (1.96-9.15); NEUTROPHILS PERCENT AUTO 85 % (41-73); Platelet Count 190 K/mm3 (150-400); RDW Coefficient Variation 14.5 % (11.7-14.2); RDW Standard Deviation 50.5 fL (35.1-46.3); Red Blood Cell Count 3.59 M/mm3 (3.80-5.20); White Blood Cell Count 11.37 K/mm3 (4.00-11.30)
[2018-11-14 21:05] LABS: PO2 Arterial 57.4 mmHg (80-100); pH Blood Arterial 7.38 (7.35-7.45)
[2018-11-14 21:06] LABS: PCO2 Arterial 85.9 mmHg (35-45)
[2018-11-14 21:19] LABS: Magnesium, Blood 2.2 mg/dL (1.6-2.4); Troponin I <0.015 ng/mL (0.000-0.040)
[2018-11-14 21:20] LABS: Alanine Aminotransfer (ALT/SGP 12 U/L (12-78); Albumin, Blood 2.9 g/dL (3.4-5.0); Albumin/Globulin Ratio 0.7 (0.8-1.8); Alk Phos 90 U/L (50-136); Aspartate Aminotrans (AST/SGOT 11 U/L (12-37); Bilirubin, Total 0.3 mg/dL (0.1-1.0); Blood Urea Nitrogen 21 mg/dL (8-24); Bun/Creatinine Ratio 19.3 (12.0-20.0); Calcium, Blood 9.5 mg/dL (8.5-10.1); Chloride, Blood 91 mmol/L (98-108); Creatinine, Blood 1.09 mg/dL (0.40-1.00); Globulin, Blood 4.1 g/dL (2.2-4.0); Glomerular Filtration Rate 56 (60-); Glucose, Blood 117 mg/dL (70-99); Potassium, Blood 3.2 mmol/L (3.5-5.5); Sodium, Blood 138 mmol/L (136-145)
[2018-11-14 21:35] LABS: Anion Gap Unable to Calculate mmol/L (6-16)
[2018-11-14 21:36] LABS: Source, Urine Catheter
[2018-11-14 21:39] LABS: CO2, Blood >45 mmol/L (21-32)
[2018-11-14 21:43] LABS: Bilirubin, Urine Neg (Neg); Blood, Urine Neg (Neg); Glucose Qualitative, Urine Neg (Neg); Ketones, Urine Neg (Neg); Leukocyte Esterase, Urine Neg (Neg); Nitrite, Urine Neg (Neg); Protein, Urine 1+ (Neg); Urobilinogen, Urine NORM (Normal)
[2018-11-14] MEDS ORDERED: STIOLTO RESPIMAT4 GM INH (21:54)
[2018-11-14 22:00] LABS: Appearance, Urine Hazy (Clear); Color, Urine Yellow (P-Yellow)
[2018-11-14 22:01] LABS: Bacteria Few /hpf; Red Blood Cells, Urine 0-2 /hpf (0-2); Squamous Epithelial Cells Not Seen /hpf (Few); White Blood Cells, Urine 0-2 /hpf (0-5)
[2018-11-14 22:14] LABS: Calcium Oxalate Crystals Mod /hpf
--- NOTE | 2018-11-14 23:55 | NUR ---
ADMIT PT ARRIVES VIA STRETCHER ON HOME VENT FROM ER. PT WAKES UP TO VOICE AND REQUESTS "SOMETHING FOR ANXIETY AND PAIN," BEFORE BEING ABLE TO MOVE PT TO BED. PT ANXIOUS AND AGITATED, O2 SATS DROPPING TO MID 80'S, HOME VENT MAKING A BLOWING NOISE. RT CALLED, BAGGED FOR < FIVE MINUTES WHILE [facility] VENT SET UP. TRACH INNER CANNULA CHANGED OUT AND DR DRAKE CALLED, UPDATED ON PT STATUS AND REQUEST FOR FENTANYL AND ATIVAN. DR DRAKE ORDERED PRECEDEX. ONCE ATTACHED TO [facility] VENT, TRACH CUFF NOTED TO BE COMPLETELY DEFLATED, REINFLATE BY RT WITH BETTER VOLUMES AND O2 SATS. PT REMAINS ANXIOUS, PUSHING AIR AROUND INFLATED TRACH CUFF.
--- NOTE | 2018-11-15 01:40 | NUR ---
PT'S DAD DEWEY ARRIVAL DEWEY ARRIVES, REPORTS ENTIRE TRACH "FELL OUT" YESTERDAY AND HE PLACED IT BACK IN THE TRACH STOMA, HE ALSO REPORTS THIS REQUIED SOME FORCE AND IT WAS NOT EASY TO GET BACK IN. HE ALSO REPORTS THAT PT HAS AN ABSCESS ON RT ELBOW THAT THEY LANCED AND DRAINED AT HOME AND IT HAD A LARGE AMOUNT OF DRAINAGE. RT ELBOW IS RED AND WARM TO TOUCH WITH SCAB IN PLACE. PICTURES OBTAINED AFTER VERBALLY AUTHORIZATION WITH DEWEY.
--- NOTE | 2018-11-15 02:00 | NUR ---
CALL TO DR DRAKE BP LOW, MAP <60. ORER OBTAINED FOR 1L NS.
[2018-11-15 02:28] LABS: PCO2 Arterial 62.3 mmHg (35-45); PO2 Arterial 70 mmHg (80-100); pH Blood Arterial 7.46 (7.35-7.45)
--- NOTE | 2018-11-15 02:43 | NUR ---
CALL TO DR DRAKE BP REMAINS LOW DESPITE BOLUS. ORDER OBTAINED FOR DOPAMINE.
[2018-11-15 03:29] LABS: BASOPHILS ABSOLUTE AUTO 0.03 K/mm3 (0.00-0.23); BASOPHILS PERCENT AUTO 0 % (0-2); EOSINOPHILS ABSOLUTE AUTO 0.18 K/mm3 (0.00-0.68); EOSINOPHILS PERCENT AUTO 2 % (0-6); Hematocrit 31.9 % (33.0-51.0); Hemoglobin 9.5 g/dL (11.5-16.0); IMMATURE GRAN ABSOLUTE AUTO 0.03 K/mm3 (0.00-0.10); IMMATURE GRAN PERCENT AUTO 0 % (0-1); LYMPHOCYTES ABSOLUTE AUTO 1.31 K/mm3 (0.84-5.20); LYMPHOCYTES PERCENT AUTO 16 % (21-46); MONOCYTES ABSOLUTE AUTO 0.48 K/mm3 (0.16-1.47); MONOCYTES PERCENT AUTO 6 % (4-13); Mean Corpuscular HGB 28.4 pg (26.0-34.0); Mean Corpuscular HGB Conc 29.8 g/dL (31.5-36.5); Mean Corpuscular Volume 95 fL (80-100); Mean Platelet Volume 11.3 fL (9.1-12.4); NEUTROPHILS ABSOLUTE AUTO 6.14 K/mm3 (1.96-9.15); NEUTROPHILS PERCENT AUTO 75 % (41-73); Platelet Count 179 K/mm3 (150-400); RDW Coefficient Variation 14.7 % (11.7-14.2); RDW Standard Deviation 51.2 fL (35.1-46.3); Red Blood Cell Count 3.35 M/mm3 (3.80-5.20); White Blood Cell Count 8.17 K/mm3 (4.00-11.30)
[2018-11-15 05:27] LABS: PCO2 Arterial 58.3 mmHg (35-45); PO2 Arterial 60.3 mmHg (80-100); pH Blood Arterial 7.47 (7.35-7.45)
--- NOTE | 2018-11-15 06:17 | NUR ---
SHIFT SUMMARY PT REMAINS INTUBATED ON AC22 W/ PC 18, PEEP OF 8 AND FIO2 50%. WITH ANY DOWNWARD TITRATION OF PROPOFOL, VT'S DROP TO 100-250'S W/ DROP IN O2 SATS TO LOW 90'S AND INCREASED HR >120 AND PROPOFOL HAS REMAINED BETWEEN 50-60MCG/KG/MIN FOR SHIFT. TF AT GOAL OF 20ML/HR-NO RESIDUALS FOR SHIFT. VSS, ECG HAS BEEN ST FOR SHFIT 110-120. FAMILY HAS REMAINED IN ROOM OVERNIGHT.
--- NOTE | 2018-11-15 06:31 | NUR ---
SHIFT SUMMARY PT REMAINS ON VENT VIA 6.0 SHILEY XLT TRACH ON AC 16/400/40% AND PEEP 5. BP LABILE AND DOPAMINE STARTED OVERNIGHT TO MAINTAIN MAP >60 AND IS CURRENTLY AT 5MCG/KG/MIN WITH NS AT 200ML/HR. ECG SHOWS SR AND O2 SATS >90%. PRECEDEX INITIALLY STARTED BUT OFF FOR MAJORITY OF SHIFT UNTIL THIS AM PT WANTED "SOMETHING FOR ANXIETY" PRECEDEX RESTARTED AT 0.1MCG/KG/HR. PT HAS HAD TWO INCONTINENT VOIDS AND HAS REFUSED BEDPAN. PT CURRENTLY USING ORAL SUCTION ON HER OWN AND HAS CALL LIGHT IN REACH.
--- NOTE | 2018-11-15 07:30 | NUR ---
ASSUMED CARE: RT AT BEDSIDE. PT CURRENTLY ON VENT THROUGH TRACH, AC 16/400/40%/5. DOPAMINE GTT AT 5MCG/KG/MIN, PRECEDEX GTT AT 0.1 MCG/KG/MIN. DR RUIZ HERE TO SEE PT. RT REPORTS THAT IN STORE REPRESENTATIVE REPORTED TO THEM THAT PT WAS HAVING PROBLEMS WITH HOME VENT. DR RUIZ AWARE OF THIS. ORAL MEDICATIONS ORDERED BUT [employer] ADVISED TO WAIT TO ADMINISTER THESE UNTIL SPEAKING WITH DR GREENBERG. ASSISTED WITH BEDPAN THIS AM. PT ABLE TO PARTICIPATE IN BED MOBILITY. NO FURTHER NEEDS AT THIS TIME.
--- NOTE | 2018-11-15 09:38 | NUR ---
PT'S FATHER CAME IN AND SPOKE WITH WHEEL TUNER, SEVEN. FATHER STATES THAT SELVIN IS TO COME TO HOUSE TO CHECK HOME VENT SETTINGS TOMORROW. SEVEN STATES SHE WILL CALL [facility] TO SEE IF SOMEONE CAN COME CHECK PORTABLE VENT SETTINGS WELL. PT NPO RIGHT NOW PER DR GREENBERG'S SUGGESTION. PRECEDEX AND DOPAMINE OFF AT THIS TIME.
--- NOTE | 2018-11-15 11:18 | NUR ---
DISCUSSED PT' CASE WIH DR GREENBERG. PT CURRENTLY NPO UNTIL SPEECH CAN EVALUATE. TITRATING DOPAMINE. DISCUSSED POSSIBLE BLOOD CULTURES WITH MD, STATES SHE WILL EVALUATE.
--- NOTE | 2018-11-15 14:10 | NUR ---
PRECEDEX RESTARTED AT 0.1 MCG/KG/MIN PER INSTRUCTIONS BY DR GREENBERG WHILE ON HOSPITAL VENT DUE TO PT'S ANXIETY. PT REQUESTED SOMETHING FOR PAIN AND AXIETY BUT DUE TO BP'S DR INSTRUCTED PRECEDEX. PT ALSO REQUESTED CUFF DEFLATED AND RT STATES THAT ONCE SHE IS RETURNED TO HOME VENT THEY CAN DO A TRIAL WITH CUFF DOWN BUT FOR NOW SHE NEEDS TO MAINTAIN CURRENT SETTINGS DUE TO INCREASED CO2 WITH ADMISSION. AWAITING LINCARE. CALL TO DISCHARGE [employer] TO DOUBLE CHECK IF THEY ARE COMING TODAY.
--- NOTE | 2018-11-15 17:12 | NUR ---
BRITTANYK WITH REP ARA MONTALVO WHO STATED PORTABLE VENT OK TO US. DR GREENBERG INFORMED LUMBER CHECKER THAT I O TO USE, THEN SWITCH TO HOME VENT AND HOME SETTINGS WITH VBG TO BE DRAWN IN AM. RT MADE AWARE
--- NOTE | 2018-11-15 18:36 | NUR ---
SHIFT SUMMARY: PT ON HOME VENT WITH SETTINGS SIV16, TV 500, PS 12, PEEP 5. PRECEDEX AT 0.3MCG/KG/MIN AND DOPAMINE AT 3MCG/KG/MIN. FATHER AT BEDSIDE THROUGHOUT MOST OF DAY. VBG IN AM TO DETERMINE HOW PT IS TOLERATING HOME VENT
--- NOTE | 2018-11-15 20:21 | NUR ---
ASSUMED CARE OF PT, REPORT RCV'D FROM PIERCE ESPINAL. PT SLEEPING COMFORTABLY WITH FATHER AT BEDSIDE. PT RECENTLY MOVED TO HOME VENT, SETTINGS: SIV 16, TV 500, PS 12, PEEP 5, 3L O2 BLEED IN. GTT: PRECEDEX 0.3 MCG/KG/HR, DOPAMINE 3 MCG/KG/HR, NS TKO. SEE FULL SHIFT ASSESSMENT.
--- NOTE | 2018-11-15 22:03 | NUR ---
PHONE CALL TO DR. GREENBERG REGARDING PT'S CONTINUED ANXIETY AND NPO STATUS PENDING SWALLOW EVAL. PER DR. GREENBERG, NO SWALLOW EVAL PT IS CHRONICALLY NON-COMPLIANT. PT OKAY TO HAVE HOME PO MEDS WITH APPLESAUCE. PRECEDEX TO BE PLACED ON STANDBY UNLESS PT'S ANXIETY CONTINUES.
--- NOTE | 2018-11-15 22:17 | NUR ---
GAVE 2000,2100 MEDS PREVIOUSLY HELD FOR NPO
--- NOTE | 2018-11-15 22:37 | NUR ---
PT MEDICATED WITH 0.5 XANAX PER ORDER. PT STATES THAT SHE "DOESN'T WANT XANAX" AND THAT SHE "WANTS A SHOT OF ATIVAN". DISCUSSED WITH PT THAT XANAX IS ON HER HOME MED LIST AND THAT SHE DOESN'T TAKE ATIVAN, AND THAT SHE IS BEING TREATED FOR HYPOTENSION. PT CONTINUES TO BE AGITATED.
--- NOTE | 2018-11-16 03:30 | NUR ---
ASSUMED CARE ASSUMED CARE OF PATIENT. REMAINS ON HOME VENT WITH PREVIOUS SETTINGS. FIO2 40%. RESPIRATIONS UNLABORED AT THIS TIME. FREQUENT HIGH PEAK PRESSURE ALARMS. PT RESTING QUIETLY AT THIS TIME WITH PRECEDEX INFUSING @ 0.4MCG/KG/HR. OPENS EYES TO STIMULI. FOLLOW SIMPLE COMMANDS. NO ANXIETY NOTED AT THIS TIME. MONITOR SHOWS SB-SR, RATE 55-60s. BP STABLE. DOPAMINE REMAINS OFF. ATTENDS IN PLACE.
[2018-11-16 04:30] LABS: BASOPHILS ABSOLUTE AUTO 0.04 K/mm3 (0.00-0.23); BASOPHILS PERCENT AUTO 1 % (0-2); EOSINOPHILS ABSOLUTE AUTO 0.09 K/mm3 (0.00-0.68); EOSINOPHILS PERCENT AUTO 1 % (0-6); Hematocrit 28.2 % (33.0-51.0); Hemoglobin 8.8 g/dL (11.5-16.0); IMMATURE GRAN ABSOLUTE AUTO 0.02 K/mm3 (0.00-0.10); IMMATURE GRAN PERCENT AUTO 0 % (0-1); LYMPHOCYTES ABSOLUTE AUTO 0.85 K/mm3 (0.84-5.20); LYMPHOCYTES PERCENT AUTO 10 % (21-46); MONOCYTES ABSOLUTE AUTO 0.53 K/mm3 (0.16-1.47); MONOCYTES PERCENT AUTO 6 % (4-13); Mean Corpuscular HGB 28.5 pg (26.0-34.0); Mean Corpuscular HGB Conc 31.2 g/dL (31.5-36.5); Mean Platelet Volume 10.9 fL (9.1-12.4); NEUTROPHILS PERCENT AUTO 83 % (41-73); Platelet Count 184 K/mm3 (150-400); RDW Coefficient Variation 14.7 % (11.7-14.2); RDW Standard Deviation 49.2 fL (35.1-46.3); Red Blood Cell Count 3.09 M/mm3 (3.80-5.20); White Blood Cell Count 8.83 K/mm3 (4.00-11.30)
[2018-11-16 04:35] LABS: Bicarbonate Venous 34.3 mmol/L (24.0-30.0); PCO2 Venous 52.7 mmHg (38-42); PO2 Venous 59.2 mmHg (38-42); pH Blood Venous 7.44 (7.34-7.37)
[2018-11-16 04:36] LABS: Mean Corpuscular Volume 91 fL (80-100)
[2018-11-16 04:52] LABS: Anion Gap 6 mmol/L (6-16); Blood Urea Nitrogen 17 mg/dL (8-24); Bun/Creatinine Ratio 19.7 (12.0-20.0); CO2, Blood 35 mmol/L (21-32); Calcium, Blood 8.6 mg/dL (8.5-10.1); Chloride, Blood 102 mmol/L (98-108); Creatinine, Blood 0.86 mg/dL (0.40-1.00); Glomerular Filtration Rate >60 (60-); Glucose, Blood 81 mg/dL (70-99); Magnesium, Blood 1.7 mg/dL (1.6-2.4); Phosphorus, Blood 2.6 mg/dL (2.5-4.9); Sodium, Blood 143 mmol/L (136-145)
--- NOTE | 2018-11-16 06:23 | NUR ---
SHIFT SUMMARY NO ACUTE CHANGES. REMAINS ON HOME VENT. SEDATED WITH PRECEDEX OFF AND ON DURING SHIFT- NOW INFUSING @ 0.4MCG/KG/HR. RESPONDS EASILY TO STIMULI. DOES NOT APPEAR ANXIOUS AT THIS TIME. DOPAMINE HAS BEEN OFF SINCE APPROXIMATELY 0100- VSS. INCONTINENT OF URINE- ATTENDS IN PLACE. REMAINS IN DROPLET ISOLATION. WILL REPORT TO DAY SHIFT RN WHEN AVAILABLE.
--- NOTE | 2018-11-16 07:15 | NUR ---
START OF SHIFT NOTE: RECEIVED REPORT FROM KONG CORCORAN, RN, ASSUMED CARE, PATIENT IS IN ISOLATION FOR DROPLET MRSA, SLIGHTLY SEDATED WITH PRECEDEX 0.4 MCG/KG/MIN, ON HOME VENT WITH TRACH, DOPAMINE OFF SINCE 99 LAST NIGHT,LUNG SOUNDS ARE DIMINISHED BUT MOSTLY CLEAR, NSR, BOWEL TONES PRESENT, PEDAL PULSES STRONG, PATIENT HAS NT VOIDED DURING NOC SHIFT PER NOC RN, RT IN TO CHECK ON VENT AND SETTINGS, HR IN 90'S, BLOOD PRESSURES IN 70'S AND 80'S, PRECEDEX DECREASED TO 0.3 MCG/KG/MIN, AFEBRILE, DENIES PAIN AND DISCOMFORT AT THIS TIME, CALL LIGHT IN REACH, WILL CONTINUE TO MONITOR.
--- NOTE | 2018-11-16 08:00 | NUR ---
DR. MARIE IN TO SEE PATIENT, LOW POTASSIUM LEVELS AND DECREASED URINE OUTPUT DISCUSSED, NEW ORDERS RECEIVED.
--- NOTE | 2018-11-16 09:09 | NUR ---
PATIENT SWALLOWED ALL AM PILLS WITH APPLE SAUCE, ONE TO TWO AT A TIME, NO PROBLEMS, PATIENT ABLE TO MOUTH WORDS, O2 SATS IN LOW TO MID 80'S, RT NOTIFIED, IN TO SEE PATIENT.
--- NOTE | 2018-11-16 09:53 | NUR ---
DR. GREENBERG IN TO SEE PATIENT, NEW ORDERS RECEIVED, DR. SIFUENTES ALSO NOTIFIED ABOUT PATIENT NOT URINATING ALL NIGHT, BLADDER SCANNER AT BEDSIDE, PATIENT MOUTHED THAT "SHE IS READY FOR BEDPAN", PLACED ON BEDPAN, PATIENT STARTED TO HYPERVENTILATE AND PANIC, WAS SUCTIONED BY THIS RN, SMALL AMOUNT OF SPUTUM NOTED, PRECEDEX RESTARTED AT 0.2 MCG/KG/MIN, RT IN TO SEE PATIENT, DR. GREENBERG NOTIFIED, CALL LIGHT IN REACH, WILL CONTINUE TO MONITOR.
--- NOTE | 2018-11-16 10:00 | NUR ---
PATIENT REFUSED BLADDER SCAN BUT VOIDED 1200 CC IN BEDPAN.
--- NOTE | 2018-11-16 10:48 | NUR ---
PATIENT'S FATHER IN TO SEE PATIENT.
--- NOTE | 2018-11-16 11:24 | NUR ---
PATIENT REFUSED TO HAVE BED BATH AND SHEETS CHANGED AT THIS TIME, STATED "I AM COMFORTABLE RIGHT NOW", WILL ATTEMPT LATER TODAY.
--- NOTE | 2018-11-16 12:40 | NUR ---
PATIENT REFUSED LUNCH TRAY, DOES NOT LIKE PUREED DIET, CONTINUES TO SLEEP, VSS AT THIS TIME, PRECEDEX AND DOPAMINE OFF, FATHER AT BEDSIDE, CALL LIGHT IN REACH, WILL CONTINUE TO MONITOR.
--- NOTE | 2018-11-16 16:06 | NUR ---
PATIENT C/O BACK PAIN, ASKED FOR A FENTANYL SHOT, PATIENT MAY ONLY HAVE TYLENOL, AGREED TO IT, RECEIVED 2 TYLENOL 325 MG PO EACH, FOR A TOTAL OF 650 MG TYLENOL FOR BACK PAIN, ALSO RECEIVED ONE XANAX 0.25 MG PO, CALL LIGHT IN REACH, WILL CONTINUE TO MONITOR.
--- NOTE | 2018-11-16 17:16 | NUR ---
FATHER RETURNED TO BEDSIDE AND STARTED GIVING PATIENT BACKRUBS, THIS INCREASED PATIENTS RESPIRATORY RATE, ASKED TO STOP BACKRUBS BY RT AND THIS RN, PATIENT RETURNED TO LOWER RATE OF 20, FATHER VERBALIZED UNDERSTANDING, CALL LIGHT IN REACH, WILL CONTINUE TO MONITOR.
--- NOTE | 2018-11-16 17:22 | NUR ---
FATHER ASSISTING PATIENT WITH DINNER, STATED "SHE NEVER CHOKED AT HOME, I DON'T KNOW WHY THEY HAVE HER ON THIS TYPE OF DIET", DISCUSSED WITH FATHER THAT SPEECH THERAPY FEELS THE PATIENT HAS IN INCREASED ASPIRATION RISK AND WAS PLACED ON THE PUREED DIET.
--- NOTE | 2018-11-16 17:29 | NUR ---
SHIFT SUMMARY NOTE: NO ACUTE EVENTS DURING DAY SHIFT, PATIENT WAS SLEEPING MOST OF THE TIME, ON HOME VENT, ATE 20 % OF BREAKFAST, REFUSED LUNCH, BUT IS EATING SOME DINNER, WITH HER FATHER'S ASSISTANCE, VSS, AFEBRILE, RECEIVED TYLENOL 650 MG PO FOR BACK PAIN ONCE, AND 0.25 MG XANAX FOR ANXIETY, VOIDED WITHOUT ANY PROBLEMS, DOPAMINE OFF SINCE 0100 AM LAST NIGHT, PRECEDEX WAS TURNED ON AND OFF DURING FIRST FOUR HOURS OF SHIFT, BUT HAS BEEN OFF SINCE BEFORE NOON, PATIENT RESTING WELL, RECEIVING ZOSYN, FOR DETAILS SEE SHIFT ASSESSMENT DOCUMENTATION AND NURSES NOTES, CALL LIGHT IN REACH, WILL CONTINUE TO MONITOR AND GIVE REPORT TO ONCOMING CUSHION MAKER.
--- NOTE | 2018-11-16 20:00 | NUR ---
ASSUMED CARE OF PT AT 1915. REPORT RECEIVED. PT PRESENTS IN BED. SLEEPING AT THIS TIME. PT ON HOME VENT. IN NO APPARENT DISTRESS. WILL ALLOW PT TO REST AT THIS TIME. VSS. WILL REVIEW CHART AND PLAN OF CARE FOR THIS PT.
--- NOTE | 2018-11-16 22:15 | NUR ---
PT USES HER CALL LIGHT AND REQUESTS TO HAVE THIS RN CALL MD TO ASK FOR FENTANYL FOR PAIN. TEACHING DONE ON HER ORDERED MEDS, AND THAT MD HAD ORDERED HER HOME MEDICATIONS TO BE GIVEN. DISCUSSED THAT CAUTION WAS BEING USED WITH HER JUST COMING OFF PRESSORS EARLIER IN DAY. PT'S FATHER HAS LEFT FOR THE NIGHT.
--- NOTE | 2018-11-17 01:00 | NUR ---
PT MEDICATED WITH TYLENOL PER PRN EMAR. HAS VOIDED PER BEDPAN Q.S. NO COMPLAINTS OF DYSURIA. HAS BEEN ABLE TO REST SOME THIS EVENING/MORNING.
--- NOTE | 2018-11-17 02:52 | NUR ---
PT CURRENTLY AWAKE AND USING HER CELLPHONE. PT IN NO DISTRESS AT THIS TIME. CONTINUES ON HER HOME VENT. NO S/S RESPIRATORY DISTRESS.
[2018-11-17 04:17] LABS: BASOPHILS ABSOLUTE AUTO 0.03 K/mm3 (0.00-0.23); BASOPHILS PERCENT AUTO 0 % (0-2); EOSINOPHILS ABSOLUTE AUTO 0.11 K/mm3 (0.00-0.68); EOSINOPHILS PERCENT AUTO 1 % (0-6); Hematocrit 28.8 % (33.0-51.0); Hemoglobin 8.8 g/dL (11.5-16.0); IMMATURE GRAN ABSOLUTE AUTO 0.03 K/mm3 (0.00-0.10); IMMATURE GRAN PERCENT AUTO 0 % (0-1); LYMPHOCYTES ABSOLUTE AUTO 1.46 K/mm3 (0.84-5.20); LYMPHOCYTES PERCENT AUTO 16 % (21-46); MONOCYTES ABSOLUTE AUTO 0.44 K/mm3 (0.16-1.47); MONOCYTES PERCENT AUTO 5 % (4-13); Mean Corpuscular HGB 27.8 pg (26.0-34.0); Mean Corpuscular HGB Conc 30.6 g/dL (31.5-36.5); Mean Corpuscular Volume 91 fL (80-100); Mean Platelet Volume 11.2 fL (9.1-12.4); NEUTROPHILS ABSOLUTE AUTO 6.87 K/mm3 (1.96-9.15); NEUTROPHILS PERCENT AUTO 77 % (41-73); Platelet Count 195 K/mm3 (150-400); RDW Coefficient Variation 15.3 % (11.7-14.2); RDW Standard Deviation 50.8 fL (35.1-46.3); Red Blood Cell Count 3.16 M/mm3 (3.80-5.20); White Blood Cell Count 8.94 K/mm3 (4.00-11.30)
[2018-11-17 04:38] LABS: Albumin, Blood 2.5 g/dL (3.4-5.0); Anion Gap 5 mmol/L (6-16); Blood Urea Nitrogen 18 mg/dL (8-24); Bun/Creatinine Ratio 15.4 (12.0-20.0); CO2, Blood 33 mmol/L (21-32); Calcium, Blood 8.9 mg/dL (8.5-10.1); Chloride, Blood 107 mmol/L (98-108); Creatinine, Blood 1.17 mg/dL (0.40-1.00); Glomerular Filtration Rate 51 (60-); Glucose, Blood 96 mg/dL (70-99); Potassium, Blood 2.8 mmol/L (3.5-5.5); Sodium, Blood 145 mmol/L (136-145)
--- NOTE | 2018-11-17 06:52 | NUR ---
PT HAS BEEN UP TO BEDSIDE COMMODE WITH ONE PERSON ASSIST. IS ABLE TO HAVE BM. PT DOES BECOME DYSPNEIC WITH EXERTION. INCREASED O2 BLEED-IN TO 6 L/M. CURRENTLY BACK TO 4 L/M. ON HOME VENT. PT HAS NO COMPLAINTS AT THIS TIME. REPORT GIVEN TO PIERCE ABEL.
--- NOTE | 2018-11-17 07:19 | NUR ---
ASSUMED CARE: RECEIVED REPORT FROM NOC RN CELIA Younger REVIEWED ORDERS AND LABS. PT APPEARS TO BE SLEEPING AT THIS TIME WITH EVEN CHEST RISE AND FALL. NO ACUTE DISTRESS NOTED. WILL CONTINUE TO MONITOR AND ASSESS FURTHER.
--- NOTE | 2018-11-17 10:13 | NUR ---
TRANSFER PCU ORDER: PRECEDEX HAS BEEN OFF FOR OVER 12 HOURS. RECEIVED VERBAL ORDER FOR PCU TRANSFER.
--- NOTE | 2018-11-17 10:38 | NUR ---
DR AT BEDSIDE: DR CHANEL IS CURRENTLY AT BEDSIDE DISCUSSING NEED FOR PT STAY FOR IV ANTIBIOTICS. THIS RN MADE AWARE OF PT CONCERNS OF PUREE FOOD, NO IV PAIN MEDS, AND QUESTIONS REGUARDING ASPIRATION.
--- NOTE | 2018-11-17 10:54 | NUR ---
PLAN OF CARE: REDUCE THE NUMBER OF WIRES TO ASSIST PT IN RETURNING TO BASELINE OF ACTIVITY WHILE IN THE HOSPITAL SO TO REDUCE PAIN AND REDUCE NEED FOR PAIN MEDICATIONS.
--- NOTE | 2018-11-17 16:47 | NUR ---
SHIFT SUMMARY: PT HAS BEEN CALM AND COOPERATIVE T/O THE DAY. NO DISTRESS NOTED T/O THE DAY. PATIENT WORKED WITH PT AND ST TODAY. LOTS OF EDUCATION DONE IN REGUARDS TO CURRENT CONDITION, ASPIRATION RISK/PERCAUTIONS, PAIN MANAGEMENT AND SO ON. PT HAS APPEARED TO BE RECEPTIVE, BUT IS NOTED TO BE FLAT AND WITHDRAWN AT TIMES. POTASSIUM WAS REPLACED TODAY COMING UP TO 3.8 FROM 2.8. PT STATUS CHANGED TO PCU STATUS AND IS INCOURAGED TO MOVE AROUND WITH SBA MUCH POSSIBLE TO REDUCE HER PAIN. PT REFUSED STOOL SOFTENERS TODAY, BUT HAD 2 VERY LARGE BOWEL MOVEMENTS IN BSC. WILL CONTINUE TO MONITOR AND REPORT TO ONCOMING RN. CALL LIGHT IN REACH BED IN LOWEST POSSITION.
--- NOTE | 2018-11-17 19:50 | NUR ---
ASSUMED CARE RECIEVED REPORT FROM CARRIE. PT IS ALERT AND ORIENTED X 4. ON HOME VENT, THROUGH TRACH (LEY XLT 6.0); ON HOME VENT SETTINGS WELL: SIMV 16/500/5/35%. REPORTS NO PAIN, DISCOMFORT, OR ANXIETY AT THIS TIME. PT REMAINS IN DROPLET ISOLATION PRECAUTIONS. BED LOW AND LOCKED. CALL LIGHT WITHIN REACH.
--- NOTE | 2018-11-17 21:12 | NUR ---
ASSISTED WITH PT GIVING 2100 MEDICATIONS. PT REMEMBERING OUR LONG AGO CONVERSATIONS AND UPDATED ABOUT HER HOME LIFE. PT PLEASANT AND MOUTHED CONVERSATION APPROPRIATELY. PT USING CELL PHONE AND WATCHING TV. PT IN NO DISTRESS AT THIS TIME. CALL LIGHT IN HAND. VSS.
[2018-11-18 04:40] LABS: BASOPHILS ABSOLUTE AUTO 0.03 K/mm3 (0.00-0.23); BASOPHILS PERCENT AUTO 0 % (0-2); EOSINOPHILS ABSOLUTE AUTO 0.13 K/mm3 (0.00-0.68); EOSINOPHILS PERCENT AUTO 2 % (0-6); Hematocrit 27.6 % (33.0-51.0); Hemoglobin 8.3 g/dL (11.5-16.0); IMMATURE GRAN ABSOLUTE AUTO 0.04 K/mm3 (0.00-0.10); IMMATURE GRAN PERCENT AUTO 1 % (0-1); LYMPHOCYTES PERCENT AUTO 21 % (21-46); MONOCYTES ABSOLUTE AUTO 0.43 K/mm3 (0.16-1.47); MONOCYTES PERCENT AUTO 5 % (4-13); Mean Corpuscular HGB 27.7 pg (26.0-34.0); Mean Corpuscular HGB Conc 30.1 g/dL (31.5-36.5); Mean Corpuscular Volume 92 fL (80-100); Mean Platelet Volume 11.1 fL (9.1-12.4); NEUTROPHILS ABSOLUTE AUTO 5.96 K/mm3 (1.96-9.15); NEUTROPHILS PERCENT AUTO 72 % (41-73); Platelet Count 185 K/mm3 (150-400); RDW Coefficient Variation 15.8 % (11.7-14.2); RDW Standard Deviation 52.9 fL (35.1-46.3); White Blood Cell Count 8.29 K/mm3 (4.00-11.30)
[2018-11-18 04:55] LABS: Albumin, Blood 2.3 g/dL (3.4-5.0); Anion Gap 6 mmol/L (6-16); Blood Urea Nitrogen 13 mg/dL (8-24); Bun/Creatinine Ratio 10.9 (12.0-20.0); CO2, Blood 31 mmol/L (21-32); Calcium, Blood 8.4 mg/dL (8.5-10.1); Chloride, Blood 109 mmol/L (98-108); Creatinine, Blood 1.19 mg/dL (0.40-1.00); Glomerular Filtration Rate 50 (60-); Glucose, Blood 91 mg/dL (70-99); Phosphorus, Blood 3.2 mg/dL (2.5-4.9); Potassium, Blood 3.3 mmol/L (3.5-5.5); Sodium, Blood 146 mmol/L (136-145)
--- NOTE | 2018-11-18 07:36 | NUR ---
SHIFT SUMMARY PT IS ALERT AND ORIENTED, AND IS AT BASELINE. PT IS ON HOME VENT, WITH THE SAME SETTINGS: SIMV16/500/5/35%. PT ABLE TO SUCTION HERSELF. VENT IS CONNECTED TO OXYGEN, AND SHE REQUIRES MORE LPM WHEN SHE GETS UP TO THE BEDSIDE COMMODE. DUE TO DYSPNEA UPON EXERTION. PT COMMUNICATES BY MOUTHING WORDS, AND WRITING. PT COMPLAINS OF PAIN IN HER SIDE AND LEG, POSSIBLY DUE TO SCIATICA. MEDICATED WITH TRAMADOL AND TYLENOL, WORKS WELL (PER PATIENT) FOR A FEW HOURS. NO ACUTE EVENTS OVERNIGHT; PT IS FAIRLY INDEPENDENT DESPITE RECEIVING MECHANICAL VENTILATION. VITALS HAVE BEEN STABLE. weendy PATENT. UOP: ~600ML. BED IS LOW AND LOCKED, CALL LIGHT WITHIN REACH.
--- NOTE | 2018-11-18 13:30 | NUR ---
SHOWER: PT UP TO SHOWER WITH ASSISTANCE FROM THIS RN AND RT TO MANAGE VENT WITH TRANSFER TO SHOWER ROOM. PT TOLLERATED WELL, HAD MOMENTS OF SOB, BUT PT WOULD SIT AND FOCUS ON BREATHING FOR AWHILE UNTIL SHE WAS ABLE TO BREATH EVENLY. ASSISSTED PT WITH WASHING HAIR, PT WASHED THE REST OF HERSELF INDEPENDENTLY. O2 BLEED IN WAS TURNED UP TO 10L WHEN SOB. VSS UPON RETURNING TO ROOM.
--- NOTE | 2018-11-18 18:06 | NUR ---
SHIFT SUMMARY: NO ACUTE DISTRESS NOTED T/O THE DAY. PT WAS ABLE TO GET UP TO THE SHOWER TODAY WITH MINIMAL EXERSION. VSS T/O THE DAY. PT APPEARED IN GOOD SPIRITS TODAY WITH LITTLE TO NO ANXIETY. ALTHOUGH PT WAS NOTED TO BE SHAKING POSSIBLY D/T THE STEROIDS. PT HAS BEEN WORKING WITH PHYSICAL THERAPY AND PAIN SEEMS TO BE MANAGED TO PT TOLLERANCE. WILL CONTINUE TO MONITOR AND REPORT TO ONCOMING RN. BED IN LOWEST POSSITION AND CALL LIGHT WITHIN REACH.
[2018-11-19 04:20] LABS: Calcium, Blood 8.1 mg/dL (8.5-10.1); Creatinine, Blood 1.13 mg/dL (0.40-1.00); Potassium, Blood 3.3 mmol/L (3.5-5.5)
--- NOTE | 2018-11-19 04:32 | NUR ---
PT WATCHING TV. REQUESTED TWO CANS OF SOUP AND CRACKERS.
--- NOTE | 2018-11-19 15:20 | NUR ---
TRANSFER TO PCU 12: REPORT GIVEN TO JOHN Alejo RN. PT TRANSFERED BY WHEELCHAIR BY THIS RN AND PCT TETE Weber C/O SOME DISTRESS FROM PT FEELING LIKE SHE "CAN'T BREATH" O2 WAS TITRATED UP. VERAFIED VENT WAS WORKING PROPERLY. RT NOTIFIED OF TRANSFER. EXTRA INTERCANULAS AND TRACH KIT TRANSFERED WITH PATINENT. RT NOTIFIED OF TUBING DICONECTING EASILY FROM VENT. NS TKO RUNNING THROUGH MEDIPORT PER ORDERS.
--- NOTE | 2018-11-19 18:10 | NUR ---
END OF SHIFT; PT ARRIVED TO PCU LATE THIS AFTERNOON. SHE IS ON A HOME VENT WITH A TRACH. PT SPEAKS IN WHISPER. SHE IS ABLE TO MAKE HER NEEDS KNOWN. PT ASKS FOR PAIN MEDICATION ON ARRIVAL TO PCU. ULTRAM 50MG PO IS PROVIDED. PT'S FATHER IS AT BEDSIDE. PER RT PATIENT HAS REPLACEMENT INNER CANNULA IN BAG IN ROOM. IF HER TRACH BECOMES DISLODGED REPLACE IT WITH ONE OF THESE IN HER BAG OR CLEAN OFF HER CURRENT INNER CANNULA AND PUT IT BACK IN PLACE. IT DOES NOT HAVE TO BE A STERILE PROCEDURE PER RT. PER REPORT FROM TEN PELAYO PT WILL MORE THAN LIKELY GO HOME TOMORROW AND HAVE OUTPATIENT ANTIBIOTIC THERAPY. SHE HAS A MEDIPORT THAT IS CURRENTLY ACCESSED WITH FLUIDS INFUSING TO KEEP PATENT AT 15ML/HR. HER LUNGS ARE COARSE THROUGHOUT. WILL CONTINUE TO MONITOR THIS PATIENT UNTIL REPORT AND HAND OFF TO NOC SHIFT RN.
--- NOTE | 2018-11-19 22:25 | NUR ---
PCU NOC SHIFT - ASSUMED CARE PATIENT ALERT AND ORIENTED X4 - MOUTHS WORDS DUE TO TRACH IN PLACE PATIENT REPORTS THAT SHE FEELS WELL AT THIS TIME AND DENIES ANY NEED FOR PAIN MEDICATION. PATIENT HAS 5 LPM BLEED IN TO HOME VENT - TOLERATING WELL WITH CONTINUED BIOX IN PLACE AT 95% - LUNG SOUNDS WHEEZE TO CLEAR - PATIENT HAS INLINE SUCTION WITH YELLOW THICK SPUTUM NOTED. PATIENT VERBALIZES THAT SHE DOES GOODE WITH DEPRESSION AND WILL CONTINUE TO FIGHT TO GET ON LUNG TRANSPLANT LIST EVEN WITH HER POOR LUNG HEALTH AND DENAL OF LIST AT THIS TIME. PATIENTS SPIRITS ARE HIGH. PATIENT TRANSFERS SELF TO BEDSIDE COMMDOE INDEPENDANTLY AND USES CALL LIGHT APPROPRIATLY. PATIENT JEANETTE ANY NEEDS AT THIS TIME. WILL CONTINUE TO MONITOR, CALL LIGHT W/I REACH.
--- NOTE | 2018-11-20 00:38 | NUR ---
PATIENT REPORTS LOW BACK AND HIP PAIN PATIENT MEDICATED PER EMAR AND GIVEN KPAD FOR COMFORT. PATIENT DENIES ANY FURTHER NEEDS AT THIS TIME.
--- NOTE | 2018-11-20 03:44 | NUR ---
PCU NOC SHIFT SUMMARY PATIENT REMAINS ALERT AND ORIENTED X4 T/O SHIFT. PATIENT REMAINS ON HOME VENT - MANAGED WITH RESPIRTORY THERAPY. PATIENT SUCTIONS SELF WITH INLINE SUCTION T/O SHIFT. PATIENT SELF TRANSFERS TO BEDSIDE COMMODE WELL. PATIENT REMAINS IN NSR IN THE 55-60'S T/O SHIFT WITH NO EVENTS NOTED. CALL LIGHT REMAINS W/I REACH. PATIENT DENIES ANY NEEDS AT THIS TIME.
[2018-11-20 04:30] LABS: Albumin, Blood 2.3 g/dL (3.4-5.0); Anion Gap 3 mmol/L (6-16); Blood Urea Nitrogen 8 mg/dL (8-24); Bun/Creatinine Ratio 8.3 (12.0-20.0); CO2, Blood 32 mmol/L (21-32); Calcium, Blood 8.6 mg/dL (8.5-10.1); Chloride, Blood 111 mmol/L (98-108); Creatinine, Blood 0.96 mg/dL (0.40-1.00); Glomerular Filtration Rate >60 (60-); Glucose, Blood 93 mg/dL (70-99); Phosphorus, Blood 1.9 mg/dL (2.5-4.9); Potassium, Blood 3.8 mmol/L (3.5-5.5); Sodium, Blood 146 mmol/L (136-145)
--- NOTE | 2018-11-20 09:54 | NUR ---
PT C/O DIARRHEA. DR. MARIE NOTIFIED OF SOFT LOOSE STOOLS, WILL REVIEW MEDS. RN WILL WATCH FOR WATERY STOOLS AND NOTIFY PHYSICIAN IF STOOLS BECOME WATERY.
--- NOTE | 2018-11-20 18:25 | NUR ---
SHIFT SUMMARY PT RESTING IN BED THROUGHOUT THE DAY. UP TO BEDSIDE COMMODE INDEPENDENTLY. C/O HAVING LOOSE LIQUID BROWN STOOLS TODAY, AWARE, WILL MONITOR. ALERT AND ORIENTED X3. C/O 6-8/10 BACK / HIP PAIN, MEDICATED WITH PRN PAIN MEDS AND PT IS USING A KPAD FOR COMFORT. LUNG SOUNDS EXPIRATORY WHEEZES AND DIMINISHED THROUGHOUT. PT's TRACH IS INTACT, CONNECTED TO HOME VENT, PT SEEMS TO BE TOLERATING WELL. OXYGEN SATURATIONS MID 90s THROUGHOUT THE DAY. RIGHT CHEST MEDIPORT ACCESSED, NS INFUSING AT KVO, DRSG CDI. PT AWAITING HOME IV ANTIBIOTICS, DISCUSSED THIS WITH DR. CHANEL AND KATY MAHARAJ IN DISCHARGE PLANNING. AWAITING THE ANTIBIOTICS TO ARRIVE. PT VERY ANXIOUS TO GO HOME, PT UNDERSTANDS THE NEED FOR ANTIBIOTICS, BUT WANTS TO GO HOME. INFORMED PT OF THE WAIT FOR ANTIBIOTICS. PT FRUSTRATED, BUT COOPERATIVE. XANAX X1 GIVEN DURING THIS SHIFT. WILL CONTINUE TO MONITOR.
--- NOTE | 2018-11-21 06:38 | NUR ---
PCU NOC SHIFT SUMMARY PATIENT RESTED WELL T/O SHIFT. REMAINED ALERT AND ORIENTED X4. HOME VENT IN PLACE VIA TRACH C/ TRACH COLLAR. PATIENT HAS CHRONIC ONGOING PAIN - PATIENT REPORTS THAT SHE DOESN'T TAKE ANYTHING FOR PAIN AT HOME. HEATING PAD IN PLACE AND PATIENT EDUCATED PER EMAR. HR REMAINS IN SINUS RHYTHM IN THE 60-70'S - NO EVENTS PER [facility] TECH. WILL CONTINUE TO MONITOR AND GIVE REPORT TO DAYSHIFT RN. WILL CONTINUE TO MONITOR.
--- NOTE | 2018-11-21 16:30 | NUR ---
1625 SPOKE WITH RESPIRATORY THERAPIST D/T PT C/O TROUBLE BREATHING. PER RT, PT HAS BEEN SUCTIONED, TRACH INNER CANNULA CHANGED, VENT TUBING CHANGED, SATURATIONS ARE MID 90s AND ABOVE. APPEARS TO BE ANXIETY PER RT. 1630 PT RESTING IN BED, RESPIRATIONS REGULAR AND UNLABORED. PT PREVIOUSLY RECEIVED PRN XANAX FOR ANXIETY, WILL CONTINUE TO MONITOR PT.
--- NOTE | 2018-11-21 17:38 | NUR ---
SHIFT SUMMARY PT RESTING IN BED THROUGHOUT THE DAY. VSS. OXYGEN SATURATIONS 95-96% ALL DAY. PT C/O OF FEELING LIKE SHE CANNOT BREATH. RT IN ROOM THROUGHOUT THE DAY, ASSISTING WITH TRACH MANAGEMENT, PT CONTINUES TO FEEL LIKE SHE CANNOT BREATH. MEDICATED WITH PRN XANAX WHICH HELPED PT RELAX AND REST FOR A BIT THIS AFTERNOON. LUNG SOUNDS EXPIRATORY WHEEZES, DIMINISHED THROUGHOUT. ALERT AND ORIENTED X3. NSR RATE 70s ON TELEMETRY. RIGHT MEDIPORT ACCESS CDI, NS AT TKO. PT UP TO BEDSIDE COMMODE INDEPENDENTLY, CONTINUES TO HAVE SOME LOOSE STOOL, BUT PT STATES IT IS IMPROVING. PRN TRAMADOL ADMINISTERED FOR PAIN, SEE EMAR. FATHER AT BEDSIDE A PORTION OF THE DAY. WILL CONTINUE TO MONITOR.
--- NOTE | 2018-11-22 04:40 | NUR ---
SHIFT SUMMARY: PATIENT VSS, REQUESTING XANAX FREQUENTLY. NO OTHER ISSUES NOTED, BED LOW AND LOCKED, CALL LIGHT WITHIN REACH.
--- NOTE | 2018-11-22 08:19 | NUR ---
NURSING PCU DAYSHIFT: Assumed care of pt at approx 0700. A/O, plesant, cooperative w/care. C/O chronic 6/10 low back/hip pain, treating w/meds and independent repositioning. Skin is fragile w/several scattered scabs to ext's. Chronic numbness/tingling of all ext's. Tele in place, NSR w/PAC's, no c/o CP/pressure, SBP mid 90's, trace BLE edema. L/S fairly cta t/o w/coarse RLL, denies dyspnea at rest, trach w/home vent in place, uses additional 4L NC, O2 sat mid 90's, continuous bedside O2 monitoring, occ moist cough, states noted improvement in respiratory status since previous day. Abd moderately distended which pt says is baseline, BT+, denies nausea, voiding w/o difficulty. Mediport present in RCW w/NS TKO. No s/s of acute distress at this time. Pt currently sitting on edge of bed having breakfast, denies any current needs or questions regarding plan of care though is anticipating discharge home soon. RT at bedside for assessment and treatment. Awaiting rounding from PMD, call light in reach, cont to monitor for any changes.
--- NOTE | 2018-11-22 17:49 | NUR ---
NURSING PCU DAYSHIFT SUMMARY: No acute changes noted t/o the shift. VS remained stable, O2 adjusted per pt request, remained on home vent w/5-7L O2 bleed in and NC 2-4L. Continuous biox remains in place. RT at bedside intermittently t/o shift for assessment, tx's, and CPT. Pt denies and questions/needs at this time. Anticipating discharge home tomorrow after final dose of abx. Call light remains in reach, cont to monitor until rpt is given to NOC RN.
--- NOTE | 2018-11-23 01:26 | NUR ---
DR DRAKE UPDATED DR DRAKE CALLED AND UPDATED OF PATIENT'S REPEAT LACTIC VALUE OF 5.6. AN ADITIONAL BOLUS OF 1L OF NORMAL SALINE ORDERED AND A REPEAT LACTIC AT APPROX 0400 WAS ORDERED WELL.
--- NOTE | 2018-11-23 07:25 | NUR ---
NURSING PCU DAYSHIFT: Assumed care of pt at approx 0700. A/O, pleasant, cooperative w/care, mildly anxious. C/O 7/10 chronic pain, treating w/meds as ordered and positioning. Mild general weakness, chronic numbness/tingling of ext's. Scattered scabs t/o all ext's in different stages of healing. Tele in place, NSR, no c/o CP/pressure, BP stable, no noted edema. L/S w/exp wheezes t/o, mild dyspnea w/exertion, chronic trach w/home vent and 5L bleed in, 1.5L NC, O2 sat mid 90's, continuous bedside O2 monitoring, moist cough, independently suctions w/inline setup. Abd moderately distended which pt states is normal, BT+, voiding w/o difficulty. Mediport present in RCW, NS TKO w/abx as schedule. Pt denies any current questions/needs though is anticipating discharge home after abx tx. RT at bedside for breathing tx and CPT, tolerated well. Awaiting rounding from PMD, call light in reach, cont to monitor for changes.
--- NOTE | 2018-11-23 07:36 | NUR ---
SHIFT SUMMARY PATIENT PLEASENT AND COOPERATIVE THROUGHOUT THE NIGHT. PATIENT PROVIDED WITH PAIN AND ANXIETY MEDICATIONS PER EMAR. PATIENT APPEARED TO SLEEP WELL THROUGHOUT MOST OF THE NIGHT. PATIENT REMAINED ON HER HOME VENT, RT MANAGING SETTINGS. PATIENT SUCTIONING SELF APPROPRIATELY. IV ABX GIVEN PER ORDERS. VITAL SIGNS CHARTED. REPORT GIVEN TO ONCOMING RN.
--- NOTE | 2018-11-23 12:12 | NUR ---
PCU TRANSFER OF CARE: No acute changes noted t/o the a.m. Seen by Renetat, tolerated fairly well. Respiratory and cardiac status unchanged. Seen by PMD, plan to discharge home after 1600 abx. Family currently at bedside, no s/s of acute distress, rpt provided to accepting RN.
[2018-11-23] MEDS ORDERED: ACET325 PO (17:10)
[2018-11-23] MEDS ORDERED: LEVO750 PO (17:11)
[2018-11-23] MEDS ORDERED: Anti-Diarrheal2 MG PO (17:15)
[2018-11-23] MEDS ORDERED: LIDO700A20 TOP (17:15)
[2018-11-23] MEDS ORDERED: Florastor250 MG PO (17:16)
[2018-11-23] MEDS ORDERED: DEEP SEA44 ML INH (17:17)
--- NOTE | 2018-11-23 18:35 | NUR ---
END OF SHIFT; PT CAME TO PCU FROM MED FLOOR TODAY FOR HTN. HE IS NOTED TO BE CONSTIPATED AND FLEET ENEMA AND MAG CITRATE ARE ADMIN PER ORDER. MINIMAL RESULT. 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 PT HAD 11 BEAT RUN OF VTACH AT 635 TONIGHT HE IS ASYMPTOMATIC AT THIS TIME. PICS ARE TAKEN OF PATIENT SKIN CONDITION WHICH SHOWS MUCH SCABS AND SCARING ON BACK, ABDOMEN, BILATERAL LEGS AND FACE. PT EXPRESSES THAT HE WANTS TO QUIT METH AND THAT HE HAS BEEN USING IT DAILY FOR 3 YEARS. PT IS NOTED TO BE GUPPY BREATHING BY MD AND SHE EXPRESSES TO HIM THAT HE IS AT RISK FOR SUDDEN . PT VERBALIZED UNDERSRTANDING.
== END 2018-11-23 18:10 | disposition home or self-care (01) | DRG 207 ==
LOC: ER 20:23 → ICUW 20:24 → ICUE 20:24 → PCU 11-19 15:00
PROVIDERS: Emergency Medicine; Family Medicine; Internal Medicine Critical Care Medicine; Internal Medicine Pulmonary Disease; ADMIT Hospitalist
PROC: 5A1955Z Respiratory Ventilation, Greater than 96 Consecutive Hours (ICD-10-PCS; principal; 2018-11-14)
PROC: 3E033XZ Introduction of Vasopressor into Peripheral Vein, Percutaneous Approach (ICD-10-PCS; 2018-11-15)
DX: J15.1 Pneumonia due to Pseudomonas (principal); J96.22 Acute and chronic respiratory failure with hypercapnia; G92 Toxic encephalopathy; J96.21 Acute and chronic respiratory failure with hypoxia; J43.9 Emphysema, unspecified; I10 Essential (primary) hypertension; G25.81 Restless legs syndrome; M81.0 Age-related osteoporosis without current pathological fracture; M40.209 Unspecified kyphosis, site unspecified; G89.29 Other chronic pain; Z86.14 Personal history of Methicillin resistant Staphylococcus aureus infection; T42.4X5A Adverse effect of benzodiazepines, initial encounter; Y92.9 Unspecified place or not applicable; R91.1 Solitary pulmonary nodule; F41.8 Other specified anxiety disorders; E87.6 Hypokalemia; T88.7XXA Unspecified adverse effect of drug or medicament, initial encounter; T42.6X5A Adverse effect of other antiepileptic and sedative-hypnotic drugs, initial encounter; I95.2 Hypotension due to drugs; G47.00 Insomnia, unspecified; E83.39 Other disorders of phosphorus metabolism
CPT/HCPCS: 31720; 36415; 36600; 70450; 71045; 80048; 80053; 80069; 81001; 82803; 83605; 83735; 84100; 84132; 84145; 84484; 85025; 87040; 87070; 87077; 87186; 87205; 92610; 93005; 93010; 94002; 94003; 94640; 94667; 94760; 94762; 96365; 96367; 96372; 96375; 97110; 97162; 97530; 99285-25; A9270; C9113; G0378; J1265; J1642; J1650; J1956; J2060; J2543; J2920; J3370; J7030; J7040; J7060; J7512; P9612

== ENCOUNTER 2018-11-28 17:08 | Emergency (ER) | payer OTHER ==
[~2018-11-28] VITALS: Ht 162.6 cm; Wt 68.0 kg
[~2018-11-28 17:08] MED LIST changes: +Anti-Diarrheal2 MG PO; +DEEP SEA44 ML INH; +Florastor250 MG PO; +LIDO700A20 TOP
[2018-11-28 17:23] LABS: PO2 Arterial 73.6 mmHg (80-100); pH Blood Arterial 7.34 (7.35-7.45)
[2018-11-28 17:24] LABS: PCO2 Arterial 71.9 mmHg (35-45)
[2018-11-28 17:34] LABS: BASOPHILS ABSOLUTE AUTO 0.04 K/mm3 (0.00-0.23); BASOPHILS PERCENT AUTO 0 % (0-2); EOSINOPHILS ABSOLUTE AUTO 0.16 K/mm3 (0.00-0.68); EOSINOPHILS PERCENT AUTO 2 % (0-6); Hematocrit 35.3 % (33.0-51.0); Hemoglobin 10.3 g/dL (11.5-16.0); IMMATURE GRAN ABSOLUTE AUTO 0.14 K/mm3 (0.00-0.10); IMMATURE GRAN PERCENT AUTO 1 % (0-1); LYMPHOCYTES ABSOLUTE AUTO 0.99 K/mm3 (0.84-5.20); LYMPHOCYTES PERCENT AUTO 10 % (21-46); MONOCYTES ABSOLUTE AUTO 0.43 K/mm3 (0.16-1.47); MONOCYTES PERCENT AUTO 4 % (4-13); Mean Corpuscular HGB Conc 29.2 g/dL (31.5-36.5); Mean Platelet Volume 10.3 fL (9.1-12.4); NEUTROPHILS ABSOLUTE AUTO 8.27 K/mm3 (1.96-9.15); NEUTROPHILS PERCENT AUTO 82 % (41-73); Platelet Count 218 K/mm3 (150-400); RDW Coefficient Variation 15.2 % (11.7-14.2); RDW Standard Deviation 53.1 fL (35.1-46.3); Red Blood Cell Count 3.68 M/mm3 (3.80-5.20); White Blood Cell Count 10.03 K/mm3 (4.00-11.30)
[2018-11-28 17:35] LABS: Mean Corpuscular Volume 96 fL (80-100)
[2018-11-28 18:02] LABS: Source, Urine Catheter
[2018-11-28 18:11] LABS: Bilirubin, Urine Neg (Neg); Blood, Urine 2+ (Neg); Glucose Qualitative, Urine Neg (Neg); Ketones, Urine Neg (Neg); Leukocyte Esterase, Urine Neg (Neg); Nitrite, Urine Neg (Neg); Protein, Urine 2+ (Neg); Specific Gravity, Urine 1.025 (1.003-1.022); Urobilinogen, Urine NORM (Normal)
[2018-11-28 18:14] LABS: Alanine Aminotransfer (ALT/SGP 13 U/L (12-78); Albumin, Blood 2.9 g/dL (3.4-5.0); Albumin/Globulin Ratio 0.7 (0.8-1.8); Alk Phos 86 U/L (50-136); Anion Gap 2 mmol/L (6-16); Aspartate Aminotrans (AST/SGOT 11 U/L (12-37); Bilirubin, Total 0.2 mg/dL (0.1-1.0); Blood Urea Nitrogen 13 mg/dL (8-24); Bun/Creatinine Ratio 13.4 (12.0-20.0); CO2, Blood 36 mmol/L (21-32); Calcium, Blood 9.1 mg/dL (8.5-10.1); Chloride, Blood 104 mmol/L (98-108); Creatinine, Blood 0.97 mg/dL (0.40-1.00); Globulin, Blood 4.2 g/dL (2.2-4.0); Glomerular Filtration Rate >60 (60-); Glucose, Blood 101 mg/dL (70-99); Potassium, Blood 4.2 mmol/L (3.5-5.5); Sodium, Blood 142 mmol/L (136-145); Total Protein, Blood 7.1 g/dL (6.4-8.2)
[2018-11-28 18:24] LABS: Appearance, Urine Clear (Clear); Color, Urine Yellow (P-Yellow); U Amphetamine Screen Not Detected; U Barbituate Screen Not Detected; U Benzodiazapine Screen Not Detected; U Buprenorphine Screen Not Detected; U Cannabinoids Screen Not Detected; U Cocaine Screen Not Detected; U Methadone Screen Not Detected; U Methamphetamine Screen Not Detected; U Opiates Screen Not Detected; U Oxycodone Screen Not Detected; U Phencyclidine Screen Not Detected; U Propoxyphene Screen Not Detected
[2018-11-28 18:25] LABS: White Blood Cells, Urine 0-2 /hpf (0-5)
[2018-11-28 18:26] LABS: Bacteria Few /hpf; Hyaline Casts 0-2 /lpf (0-2); Squamous Epithelial Cells Rare /hpf (Few)
[2018-11-28 19:02] LABS: PCO2 Arterial 58.6 mmHg (35-45); PO2 Arterial 49.6 mmHg (80-100); pH Blood Arterial 7.43 (7.35-7.45)
== END 2018-11-28 20:16 | disposition home or self-care (01) ==
LOC: ER 17:08
PROVIDERS: Emergency Medicine
DX: J96.12 Chronic respiratory failure with hypercapnia (principal); J44.9 Chronic obstructive pulmonary disease, unspecified; Z79.52 Long term (current) use of systemic steroids; Z79.899 Other long term (current) drug therapy; Z87.891 Personal history of nicotine dependence
CPT/HCPCS: 31720; 36600; 70450; 71045; 80053; 81001; 82803; 85025; 93005; 93010; 94640; 96361; 96374; 96375; 99285-25; J2310; J2930; J7030; P9612

== ENCOUNTER 2018-12-11 07:05 | Inpatient (IN) | payer OTHER ==
[~2018-12-11] VITALS: Ht 167.6 cm; Wt 70.1 kg
[2018-12-11] MEDS ORDERED: ANTACID CALCIU215 MG PO (07:24)
[2018-12-11 08:00] LABS: BASOPHILS ABSOLUTE AUTO 0.04 K/mm3 (0.00-0.23); BASOPHILS PERCENT AUTO 0 % (0-2); EOSINOPHILS PERCENT AUTO 2 % (0-6); Hematocrit 34.2 % (33.0-51.0); Hemoglobin 10.3 g/dL (11.5-16.0); IMMATURE GRAN ABSOLUTE AUTO 0.03 K/mm3 (0.00-0.10); IMMATURE GRAN PERCENT AUTO 0 % (0-1); LYMPHOCYTES ABSOLUTE AUTO 1.14 K/mm3 (0.84-5.20); LYMPHOCYTES PERCENT AUTO 12 % (21-46); MONOCYTES PERCENT AUTO 7 % (4-13); Mean Corpuscular HGB 27.5 pg (26.0-34.0); Mean Corpuscular HGB Conc 30.1 g/dL (31.5-36.5); Mean Platelet Volume 11.6 fL (9.1-12.4); NEUTROPHILS ABSOLUTE AUTO 7.79 K/mm3 (1.96-9.15); NEUTROPHILS PERCENT AUTO 79 % (41-73); Platelet Count 244 K/mm3 (150-400); RDW Coefficient Variation 14.1 % (11.7-14.2); RDW Standard Deviation 47.4 fL (35.1-46.3); Red Blood Cell Count 3.75 M/mm3 (3.80-5.20)
[2018-12-11 08:05] LABS: Alanine Aminotransfer (ALT/SGP 8 U/L (12-78); Albumin, Blood 2.8 g/dL (3.4-5.0); Albumin/Globulin Ratio 0.6 (0.8-1.8); Alk Phos 99 U/L (50-136); Anion Gap 2 mmol/L (6-16); Aspartate Aminotrans (AST/SGOT 8 U/L (12-37); Bilirubin, Total 0.6 mg/dL (0.1-1.0); Blood Urea Nitrogen 13 mg/dL (8-24); Bun/Creatinine Ratio 14.3 (12.0-20.0); CO2, Blood 39 mmol/L (21-32); Calcium, Blood 9.5 mg/dL (8.5-10.1); Chloride, Blood 102 mmol/L (98-108); Creatinine, Blood 0.91 mg/dL (0.40-1.00); Globulin, Blood 4.5 g/dL (2.2-4.0); Glomerular Filtration Rate >60 (60-); Glucose, Blood 108 mg/dL (70-99); Potassium, Blood 3.6 mmol/L (3.5-5.5); Sodium, Blood 143 mmol/L (136-145); Total Protein, Blood 7.3 g/dL (6.4-8.2)
[2018-12-11 08:07] LABS: Mean Corpuscular Volume 91 fL (80-100)
[2018-12-11 08:15] LABS: International Normalized Ratio 0.97; Prothrombin Time Results 10.3 Sec (9.7-11.5)
--- NOTE | 2018-12-11 14:50 | NUR ---
LEVOPHED GTT PLACED ON STAND BY AT THIS TIME
--- NOTE | 2018-12-11 18:04 | NUR ---
SHIFT SUMMARY PT. ALERT AND ORIENTED. SLEEPING MOST OF SHIFT. LEVOPHED GTT OFF SHORTLY AFTER ARRIVAL. PT. VSS REMAIN STABLE. PT ABLE TO REPOSITION SELF IN BED NEEDED. SPUTUM SAMPLE SENT THIS SHIFT VIA TRACH SUCTION. FAMILY AT BEDSIDE T/O DAY. NADN. REPORT TO ONCOMING RN.
[2018-12-11 19:26] LABS: Source, Urine Catheter
--- NOTE | 2018-12-11 19:30 | NUR ---
ASSUMED CARE PT CURRENTLY RESTING IN BED WITH FAMILY AT BEDSIDE. PT IS CURRENTLY AOX4 AND VSS. HOME VENT CONNECTED TO TRACH WITH 4L O2 BLEED IN. NASAL CANNULA IN PLACE WITH NO CURRENT O2 FLOW BEING ADMINISTERED THROUGH IT. PT IS REPORTING SOME ANXIETY AND REQUESTING MEDICATION. O2 SATS CURRENTLY 95% ON HOME VENT WITH 4L O2 BLEED IN. WILL CONTINUE WITH ASSESSMENT AND MONITORING, BED IN LOW POSITION, CALL LIGHT IN REACH.
[2018-12-11 19:36] LABS: Adenovirus Not Detected (NOT DETECT); Bordetella pertussis Not Detected (NOT DETECT); Chlamydophila pneumoniae Not Detected (NOT DETECT); Coronavirus 229E Not Detected (NOT DETECT); Coronavirus HKU1 Not Detected (NOT DETECT); Coronavirus NL63 Not Detected (NOT DETECT); Coronavirus OC43 Not Detected (NOT DETECT); Human Metapneumovirus Not Detected (NOT DETECT); Human Rhinovirus/Enterovirus Not Detected (NOT DETECT); Influenza A Not Detected (NOT DETECT); Influenza A/2009-H1 Not Detected (NOT DETECT); Influenza A/H1 Not Detected (NOT DETECT); Influenza A/H3 Not Detected (NOT DETECT); Influenza B Not Detected (NOT DETECT); Mycoplasma pneumoniae Not Detected (NOT DETECT); Parainfluenza Virus 1 Not Detected (NOT DETECT); Parainfluenza Virus 2 Not Detected (NOT DETECT); Parainfluenza Virus 3 Not Detected (NOT DETECT); Parainfluenza Virus 4 Not Detected (NOT DETECT); Respiratory Syncytial Virus Not Detected (NOT DETECT)
[2018-12-11 19:50] LABS: Bilirubin, Urine Neg (Neg); Blood, Urine Neg (Neg); Glucose Qualitative, Urine Neg (Neg); Ketones, Urine 2+ (Neg); Leukocyte Esterase, Urine Neg (Neg); Nitrite, Urine Neg (Neg); Protein, Urine Neg (Neg); Specific Gravity, Urine 1.005 (1.003-1.022); Urobilinogen, Urine NORM (Normal)
[2018-12-11 20:00] LABS: Appearance, Urine Clear (Clear); Color, Urine Yellow (P-Yellow)
[2018-12-11 20:01] LABS: U Amphetamine Screen Not Detected; U Barbituate Screen Not Detected; U Benzodiazapine Screen DETECTED; U Buprenorphine Screen Not Detected; U Cannabinoids Screen Not Detected; U Cocaine Screen Not Detected; U Methadone Screen Not Detected; U Methamphetamine Screen Not Detected; U Opiates Screen Not Detected; U Oxycodone Screen Not Detected; U Phencyclidine Screen Not Detected; U Propoxyphene Screen Not Detected
--- NOTE | 2018-12-12 02:30 | NUR ---
ANXIETY AND RT REQUEST PT REPORTING DIFFICULTY BREATHING. UPON ASSESSMENT, PT FOUND TO BE HYPERVENTILATING AND FIGHTING VENT. O2 SATS CURRENTLY 94% ON HOME VENT WITH 4L O2 BLEED IN. LUNG SOUNDS REMAIN UNCHANGED FROM INITIAL ASSESSMENT AND PATIENT CONTINUES TO LAY ON L SIDE. PT "STATES" THAT SHE IS ANXIOUS AND REQUESTING ANXIETY MEDICATION IN HER IV. PT INFORMED THAT ANXIETY MEDICATION HAD ALREADY BEEN ADMINISTERED PER ORDERS AND ENCOURAGED TO UTILIZE ALTERNATIVE/ NONPHARMACOLOGIC INTERVENTIONS FOR ANXIETY RELIEF. PT GROWING MORE AGITATED AND WAVING ARMS IN THE AIR MOUTHING THAT SHE CAN'T BREATH. RT CALLED AND ASKED TO ASSESS PT. UPON ARRIVAL OF RT, PRASAD, PT REQUESTING TO BE BAGGED. PT CURRENTLY REFUSING TO SHIFT IN BED OFF OF L SIDE TO ENSURE TRACH IS IN PLACE AND TO PROVIDE BAGGING, IF NECESSARY. RESPIRATORY RATE CONTINUES TO INCREASE AND PT CLAMPS DOWN, DECREASING O2 SATS TO 80'S PT ANXIETY EXCALATES. AMBU BAG SET UP AND PT BAGGED BY RT PER REQEST- RESPIRATORY RATE DECREASED TO LOW 20'S, SATS >90%, AND PATIENT ANXIETY DECREASED AFTER APPROXIMATELY 2 MINUTES OF BAGGING. HOME VENT REPLACED BY RT AND SUCTION PERFORMED, PRODUCING MODERATE AMOUNT OF THICK SPUTUM THAT WAS WHITE IN COLOR. PT INSISTANT ON BEING BAGGED AGAIN DESPITE O2 SATS >90% ON HOME O2 USAGE AND TIDAL VOLUMES >500ML- PT EDUCATED ON APPROPRIATE USE OF AMBU BAG AND ALTERNATE ANXIETY RELIEF METHODS AGAIN, BUT CONTINUES TO ESCALATE AND INSIST UPON BEING BAGGED. CONTINUES TO FRANTICALLY WAVE ARMS, HIT CALL LIGHT ON BED, AND SWING HANDS AT STAFF MEMBERS, HITTING THIS RN. PT BAGGED TOTAL OF THREE TIMES FOR A TOTAL OF APPROXIMATELY 10 MINUTES BY RT, RESULTING IN IMPROVED RESPIRATORY RATE AND INCREASE IN O2 SATURATIONS TO >90%. PT CONTINUES TO BE FRUSTRATED WITH STAFF, BUT RESPIRATORY STATUS IS STABLE. CALL LIGHT PLACED IN REACH. WILL CONTINUE WITH MONITORING.
[2018-12-12 04:37] LABS: Hematocrit 28.3 % (33.0-51.0); Hemoglobin 8.6 g/dL (11.5-16.0); Mean Corpuscular HGB 27.7 pg (26.0-34.0); Mean Corpuscular HGB Conc 30.4 g/dL (31.5-36.5); Mean Corpuscular Volume 91 fL (80-100); Mean Platelet Volume 11.1 fL (9.1-12.4); Platelet Count 187 K/mm3 (150-400); RDW Standard Deviation 46.5 fL (35.1-46.3); White Blood Cell Count 13.26 K/mm3 (4.00-11.30)
[2018-12-12 04:55] LABS: Alanine Aminotransfer (ALT/SGP 13 U/L (12-78); Albumin, Blood 3.1 g/dL (3.4-5.0); Albumin/Globulin Ratio 0.8 (0.8-1.8); Alk Phos 87 U/L (50-136); Anion Gap 4 mmol/L (6-16); Aspartate Aminotrans (AST/SGOT 9 U/L (12-37); Bilirubin, Total 0.5 mg/dL (0.1-1.0); Blood Urea Nitrogen 16 mg/dL (8-24); Bun/Creatinine Ratio 22.1 (12.0-20.0); CO2, Blood 34 mmol/L (21-32); Calcium, Blood 8.7 mg/dL (8.5-10.1); Chloride, Blood 106 mmol/L (98-108); Creatinine, Blood 0.73 mg/dL (0.40-1.00); Globulin, Blood 3.7 g/dL (2.2-4.0); Glomerular Filtration Rate >60 (60-); Glucose, Blood 126 mg/dL (70-99); Sodium, Blood 144 mmol/L (136-145); Total Protein, Blood 6.8 g/dL (6.4-8.2)
--- NOTE | 2018-12-12 05:23 | NUR ---
SHIFT SUMMARY PT HAS REMAINED AOX4 THROUGHOUT SHIFT. VSS. PT CONTINUES TO FREQUENTLY REQUEST INCREASE IN OXYGEN DESPITE O2 SATS BEING IN THE MID TO HIGH 90'S. PT EDUCATED ON POTENTIAL CO2 RETENTION AND KEEPING SATURATIONS IN THE 90-95% RANGE IDEALLY. PT CONTINUES TO REQUEST INCREASE IN OXYGEN FLOW. CURRENT O2 SATS OF 95% ON HOME VENT WITH 5L O2 BLEED IN. PT TOLERATING WELL AND RESTING WITH EYES CLOSED. PT MEDICATED TWICE FOR ANXIETY THAT DECREASES WITH ORDERED MEDICATIONS. PT PROVIDED WITH K-PAD FOR CHRONIC BACK PAIN RELIEF- PT REFUSING TYLENOL FOR PAIN CONTROL THROUGHOUT THE NIGHT. PT REFUSING TO TURN FROM L SIDE THROUGHOUT SHIFT. NO OTHER CHANGES NOTED FROM INITIAL ASSESSMENT. WILL CONTINUE TO MONITOR AND REPORT TO ONCOMING SHIFT RN. BED IN LOW POSITION, CALL LIGHT IN REACH.
--- NOTE | 2018-12-12 06:13 | NUR ---
PT HAS CALLED FOR ASSISTANCEx2, MOUTHS THAT SHE CAN'T BREATHE. PT SATS NOTED TO BE 94-96%, W RR 21-23, VT 480-560, W 5L O2 BLEED IN, VENT IS NOT ALARMING. PT GESTURES THAT SHE WANTS O2 TURNED UP. PT IS POSITIONED TO HER LEFT SIDE. EXPLAINED THAT I CAN'T JUST TURN UP HER O2, SHAKES HER HEAD AND ASKS WHY. PT SXN CATH PASSED TWICE FOR THICK WHITE SECRETIONS. MAINTAINED SAT >90% EVEN AFTER SXN. PT REFUSED TO REPOSTION MORE CENTERED IN BED. PT MOUTHS, "IS THIS THE WAY IT'S GOING TO BE? I FEEL LIKE I'M GOING TO ". AGAIN, ATTEMPTED TO REASSURE DAIJA THAT SHE IS NOT DESATURATING, RESP RATE IS NOT INCREASED, VENT IS NOT ALARMING. ON SECOND CALL, FOUND VENT CIRCIUT DISCONNECTED AT TRACH & IN CIRCIUT. THIS TIME, SATS ONLY DECREASED TO 90%. OFFERED TO TURN ROOM TEMP DOWN, TO UTILIZE FAN, AND TO REPOSITION. PT REFUSES. CONT TO MONITOR, CALL LIGHT IN HAND.
--- NOTE | 2018-12-12 06:15 | NUR ---
PROVIDER CONTACTED PT WITH POSITIVE BLOOD CULTURE RESULTS OF GRAM POSITIVE COCCI IN CLUSTERS. DR PARK CONTACTED AND NO NEW ORDERS RECEIVED, PT CURRENTLY ON APPROPRIATE ABX REGIMEN.
--- NOTE | 2018-12-12 12:10 | NUR ---
PT TO TRANSFER TO PCU 3. RPEORT GIVEN TO PIERCE MCMAHAN. PT TRANSFERRED VIA BED WITH RT. PT TRIED TO REFUSE GETTING THE WET LINENS OUT FROM UNDER HER EVENWITH SWITCHING BEDS, BUT PT FINALLY COOPERATED AND ATTENDS PLACED ON HER AT THIS TIME WELL. PT'S FATHER HERE AT TIME OF TRANSFER AND WENT WITH HER TO PCU.
--- NOTE | 2018-12-12 17:40 | NUR ---
TRANSFER NOTE/SHIFT SUMMARY RECEIVED REPORT FROM JAIDEN PATEL RN IN ICU. PT TO ROOM AT 1200. 4 PERSON TRANSFERS WITH SLIDER SHEET. PT BED WET WHEN GOT TO ROOM. PT ALLOWED STAFF CHANGES AND PLACE ATTENDS UNDER HER. DURING TRANSFER PT REQUESTING TO BE BAGGED, RT AT BEDSIDE ASSISTS WITH BAGGING. PT OREINTED TO ROOM AND CALL LIGHT. PT A&Ox4. ANXIOUS AND RESISTANT TO CARE. PT DECLINING TO ALLOW STAFF TO CLEAN HER UP AFTER INCONTIENT EPISODES. REFUSING MULTIPLES TIMES UNTIL PT GOT UP TO BSC WITH SBA, LINEN CHANGES AND PT CLEANED UP. MEDICATED x1 WITH XANAX AND ONE TIMES DOSE OF IV ATIVAN PER ORDERS. PT REPORTS FEELING LIKE SHE IS UNABLE TO GET A BREATHIN IN AND REQUESTING TO BE BAGGED, PT O2 SATURATION AT 94-99% ON HOME VENTALTOR IN TRACH WITH 7L O2 BLEED IN. RESP RATE 18-24. THICK WHITE/EMERSON MUCUS SUCTIONS AT TIMES. PT CALLS WHEN VENT DISCONNECTS FROM TRACH. PT DENIES PAIN AND NAUSEA. PT RECEIVING IV STEROIDS AND ANTIBIOTICS. VSS. NO OTHER ACUTE CHANGES NOTED DURING SHIFT. WILL CONTINUE TO MONITOR UNTIL REPORT GIVEN TO ONCOMING RN.
[2018-12-13 03:36] LABS: BASOPHILS ABSOLUTE AUTO 0.01 K/mm3 (0.00-0.23); BASOPHILS PERCENT AUTO 0 % (0-2); EOSINOPHILS ABSOLUTE AUTO 0.01 K/mm3 (0.00-0.68); EOSINOPHILS PERCENT AUTO 0 % (0-6); Hematocrit 27.9 % (33.0-51.0); Hemoglobin 8.5 g/dL (11.5-16.0); IMMATURE GRAN ABSOLUTE AUTO 0.05 K/mm3 (0.00-0.10); IMMATURE GRAN PERCENT AUTO 1 % (0-1); LYMPHOCYTES ABSOLUTE AUTO 0.41 K/mm3 (0.84-5.20); LYMPHOCYTES PERCENT AUTO 4 % (21-46); MONOCYTES ABSOLUTE AUTO 0.19 K/mm3 (0.16-1.47); MONOCYTES PERCENT AUTO 2 % (4-13); Mean Corpuscular HGB 27.2 pg (26.0-34.0); Mean Corpuscular HGB Conc 30.5 g/dL (31.5-36.5); Mean Corpuscular Volume 89 fL (80-100); NEUTROPHILS ABSOLUTE AUTO 8.98 K/mm3 (1.96-9.15); NEUTROPHILS PERCENT AUTO 93 % (41-73); Platelet Count 196 K/mm3 (150-400); RDW Coefficient Variation 14.3 % (11.7-14.2); RDW Standard Deviation 46.6 fL (35.1-46.3); Red Blood Cell Count 3.13 M/mm3 (3.80-5.20); White Blood Cell Count 9.65 K/mm3 (4.00-11.30)
[2018-12-13 03:54] LABS: Alanine Aminotransfer (ALT/SGP 12 U/L (12-78); Albumin, Blood 2.8 g/dL (3.4-5.0); Albumin/Globulin Ratio 0.7 (0.8-1.8); Alk Phos 81 U/L (50-136); Anion Gap 6 mmol/L (6-16); Aspartate Aminotrans (AST/SGOT 6 U/L (12-37); Bilirubin, Total 0.4 mg/dL (0.1-1.0); Blood Urea Nitrogen 20 mg/dL (8-24); Bun/Creatinine Ratio 28.9 (12.0-20.0); CO2, Blood 32 mmol/L (21-32); Calcium, Blood 8.8 mg/dL (8.5-10.1); Chloride, Blood 105 mmol/L (98-108); Creatinine, Blood 0.69 mg/dL (0.40-1.00); Globulin, Blood 3.8 g/dL (2.2-4.0); Glomerular Filtration Rate >60 (60-); Glucose, Blood 107 mg/dL (70-99); Potassium, Blood 3.6 mmol/L (3.5-5.5); Sodium, Blood 143 mmol/L (136-145); Total Protein, Blood 6.6 g/dL (6.4-8.2)
--- NOTE | 2018-12-13 05:37 | NUR ---
SHIFT SUMMARY PT SLEEPING IN ROOM CFOMROTABLY AT THIS TIME. PT HAD NO ACUTE CHANGES T.O NIGHT. PT SLEPT IN SMALL BURSTS AND USED CALL LIGHT ,ULTIPLWE TIMES TO CALL STAFF TO ROM TO INCREASE O2 AND SUCTION TRACH. PT ON HOME VENT W/ 7-9L BLEED IN. PT CALL ED STAFF TO ROOM ONCE DURING NIGHT TO URINATE, PT REFUSED GOING TO [facility], REPORTED WAS TOO WEAK AND NEEDED BEDPAN. PT ALSO INITIALLY REFUSED TO GET ON BACK TO USE BEDPAN. PT EDUCATED IT WAS NOT POSSIBLE TO USE BEDPAN WHILE ON SIDE, AND THAT PT WOULD SOAK LINEN AND REQUIRED LINEN CHANGE. PT SONSENTED TO TURN TO BACK TO USE BED HOUSE. PT THEN BECAME VERY ANXIOUS AND REQUESTED STAFF TO BAG PT MANUALLY. O2 BLEED IN INCREASED AND PT COACHED TO SLOW BREATHING RATE DOWN AND BREATH W/ VENT, PT RECOVERED SATS >92% IN LESS THAN 1 MIN W/ O2 INCREASE. PT BACK TO L SIDE TO REST. PT WAS MEDICATED ONCE DURING NIGHT FOR HEADACHE. CALL LIGHT IN REACH. BED ALARM ON FOR SAFETY.
--- NOTE | 2018-12-13 14:28 | NUR ---
LATE ENTRY- THROUGHOUT SHIFT PT HAS BEEN ANXIOUS, STATES SHE IS SHORT OF BREATH REQUESTING O2 TO BE INCREASED AND ASKING TO BE BAGGED. O2 SATURATIONS HAVE BEEN >94% ON VENTILATOR/TRACH AND 5L O2 BLEED IN. PT MEDICATED x1 WITH XANAX AND x1 WITH ATIVAN. ATIVAN REASSESSMENT 1430. PT RESTING IN BED, APPEARS TO BE SLEEPING. O2 BLEED IN AT 10L, TITRARTED DOWN TO 7L O2, O2 SATURATIONS AT 99-100. PT APPEARS TO BE LESS ANXIOUS AND APPEARS TO BE SLEEPING. WILL CONTINUE TO MONITOR.
--- NOTE | 2018-12-13 14:45 | NUR ---
THIS RN RESPONDED TO PTS CALL LIGHT. PT STATES SHE URINATED IN HER ATTENDS. I STATED WE COULD CLEAN HER UP WE WOULD JUST HAVE TO ROLL IN THE BED AND I ALSO OFFERED THE BSC. PT THEN REQUESTED HER OXYGEN BE TURNED UP. I THEN TOLD THE PATIENT THAT I WOULD NOT INCREASE HER OXYGEN BECAUSE HER OXYGEN SATURATIONS WERE 97%. PT WAS EDUCATED OF THE EFFECTS OF OVER OXYGENATION. PT THEN STATED "NEVERMIND, I DON'T WANT TO BE CHANGED."
--- NOTE | 2018-12-13 17:38 | NUR ---
SHIFT SUMMARY PT A&Ox4. INCREASED ANXIETY T/O SHIFT, MEDICATED X1 WITH XANAX AND x1 WITH ATIVAN PER ORDERS. PT RESTING IN BED DURING SHIFT. UP TO [facility] WITH PIVOT TRANSFERS. PT REPORTS GENERALIZED PAIN. SOB AT REST, O2 SATURATION 94-100% ON HOME VENT TO TRACH, WITH 4-7L BLEED IN. PT CONTINUES TO REQUEST INCREASED ON O2 AND TO BE BAGGED, LS REMAIN UNCHANGED FROM PREVIOUS ASSESSMENTS. RT TO ROOM TO ASSIST PT WITH SUCTIONING T/O SHIFT AND BREATHING TREATMENTS PER RT. PT DENIES NAUSEA, REFUSING MEALS DUE TO POOR APPETITE. PT RECEIVING IV STEROIDS AND ANTIBIOTICS. PT HAS BEEN INCONTINENT DURING SHIFT AND REFUSING CARE AT TIMES. OTHER VSS. NO OTHER ACUTE CHANGES NOTED. WILL CONTINUE TO MONITOR. UNTIL REPORT GIVEN TO ONCOMING RN.
--- NOTE | 2018-12-13 22:31 | NUR ---
ASSUMED CARE OF PATIENT AT APPROXIMATELY 1905 FROM MARTIR Alan RN. PATIENT ALERT AND ORIENTED X4; PATIENT DID NOT COMPLAIN OF PAIN; REPORTS SHE FEELS LIKE SHE CANT CATCH HER BREATH; RT IN ROOM GIVING PATIENT BREATHING TREATMENT. PATIENT ALSO COMPLAINING OF ANXIETY; REQUESTING IV ATIVAN TO MULTIPLE STAFF MEMBERS; MEDICATED PER EMAR WITH XANAX; PATIENT REPORTS SHE DOESNT TAKE ANYTHING AT HOME FOR ANXIETY. PATIENT REPORTS SHE RECENTLY LOST HER BEST FRIEND; REFUSED VISIT FROM SPIRITUAL CARE. PATIENT DENIES NUMBNESS, TINGLING, DIZZINESS AND NAUSEA. SB/NSR ON TELE; OXYGEN SATURATION ABOVE 90% ON HOME TRACH W/ 4-5LPM BLEED IN. PATIENT HAS BEEN INCONTINENT OF URINE TODAY; ABLE TO TRANSFER TO BEDSIDE COMMODE W/ SBA PER REPORT. REFUSES TO ALLOW STAFF TO CHANGE BEDDING OR ATTENDS. TKO NS INTO MEDIPORT. 2X PIV S/L. PATIENT CURRENTLY RESTING IN BED; CALL LIGHT IN REACH; BED IN LOWEST POSISTION; BED ALARM ON; WILL CONTINUE TO MONITOR AND ASSESS UNTIL END OF SHIFT.
--- NOTE | 2018-12-14 02:50 | NUR ---
PATIENT CALLED STAFF TO ROOM AND POINTS AT TRACH; TUBING NOT ATTACHED TO TRACH; TUBING HELD TO PATIENT'S TRACH; RT CALLED; DANIEL Ramos RT REPORTED TO ROOM AND FOUND PATIENT HAD REMOVED INNER CANNULA; PATIENT WAS HOLDING IT IN HER HAND; NEW INNUER CANNULA PLACED BY RT. PATIENT DENIES MEMORY OF REVOMING HERSELF. DR. PARK WAS INFORMED OF PATIENT'S COMPLAINT OF FEELING ANXIOUS AFTER XANAX; REPORTS XANAX NOT WORKING; ORDERS RECIEVED FOR ONE TIME DOSE DOSE OF ATIVAN PO; NO OTHER ACUTE CHANGES TO REPORT.
[2018-12-14 04:00] LABS: BASOPHILS ABSOLUTE AUTO 0.02 K/mm3 (0.00-0.23); BASOPHILS PERCENT AUTO 0 % (0-2); EOSINOPHILS ABSOLUTE AUTO 0.07 K/mm3 (0.00-0.68); EOSINOPHILS PERCENT AUTO 1 % (0-6); Hematocrit 28.8 % (33.0-51.0); Hemoglobin 8.9 g/dL (11.5-16.0); IMMATURE GRAN ABSOLUTE AUTO 0.04 K/mm3 (0.00-0.10); IMMATURE GRAN PERCENT AUTO 0 % (0-1); LYMPHOCYTES ABSOLUTE AUTO 1.11 K/mm3 (0.84-5.20); LYMPHOCYTES PERCENT AUTO 11 % (21-46); MONOCYTES ABSOLUTE AUTO 0.58 K/mm3 (0.16-1.47); MONOCYTES PERCENT AUTO 6 % (4-13); Mean Corpuscular HGB 26.7 pg (26.0-34.0); Mean Corpuscular HGB Conc 30.9 g/dL (31.5-36.5); Mean Corpuscular Volume 87 fL (80-100); Mean Platelet Volume 11.3 fL (9.1-12.4); NEUTROPHILS ABSOLUTE AUTO 8.19 K/mm3 (1.96-9.15); NEUTROPHILS PERCENT AUTO 82 % (41-73); Platelet Count 227 K/mm3 (150-400); RDW Coefficient Variation 14.6 % (11.7-14.2); RDW Standard Deviation 46.5 fL (35.1-46.3); Red Blood Cell Count 3.33 M/mm3 (3.80-5.20); White Blood Cell Count 10.01 K/mm3 (4.00-11.30)
[2018-12-14 04:20] LABS: Alanine Aminotransfer (ALT/SGP 9 U/L (12-78); Albumin, Blood 2.8 g/dL (3.4-5.0); Albumin/Globulin Ratio 0.7 (0.8-1.8); Alk Phos 79 U/L (50-136); Anion Gap 7 mmol/L (6-16); Aspartate Aminotrans (AST/SGOT 4 U/L (12-37); Bilirubin, Total 0.4 mg/dL (0.1-1.0); Blood Urea Nitrogen 19 mg/dL (8-24); Bun/Creatinine Ratio 25.1 (12.0-20.0); CO2, Blood 32 mmol/L (21-32); Calcium, Blood 8.9 mg/dL (8.5-10.1); Chloride, Blood 106 mmol/L (98-108); Creatinine, Blood 0.76 mg/dL (0.40-1.00); Globulin, Blood 3.8 g/dL (2.2-4.0); Glomerular Filtration Rate >60 (60-); Glucose, Blood 75 mg/dL (70-99); Sodium, Blood 145 mmol/L (136-145); Total Protein, Blood 6.6 g/dL (6.4-8.2)
--- NOTE | 2018-12-14 06:45 | NUR ---
PATIENT CALLED MULTIPLE TIMES EACH HOUR FOR BREATHING TREATMENTS, SUCTIONING AND TYLENOL. VSS. PATIENT SLEPT ABOUT FOUR HOURS LAST NIGHT. WILL CONTINUE TO MONITOR AND ASSESS UNTIL END OF SHIFT.
--- NOTE | 2018-12-14 08:21 | NUR ---
INITIAL ASSESSMENT PATIENT RESTING QUIETLY IN BED UPON ENTERING ROOM. PATIENT A AND O X 4, AFEBRILE. PATIENT ANXIOUS AT TIMES, WITHDRAWN, FLAT AFFECT. PATIENT HAS NO COMPLAINTS OF PAIN AT THIS TIME. PATIENT REPOSITIONING SELF IN BED. PATIENT SBA PIVOT TRANSFER TO CHAIR/ BSC, HOWEVER HAS BEEN REFUSING TO LET STAFF HELP WITH TOILETING/ CHANGING ATTENDS. PATIENT INCOMPLIANT WITH CARE IN GENERAL, PER INFRASTRUCTURE ENGINEER REPORT. PATIENT ON HOME VENT AND TRACH. 4 L O2 BLEED IN TO VENT. PATIENT COUGHING UP LARGE AMOUNTS OF THICK, SHIPMAN/ YELLOW PHLEGM. LUNGS CLEAR IN RUL, DIMINISHED IN RML AND RLL. INSPIRATORY WHEEZES NOTED IN LEFT LUNGS LOBES. PATIENT IN SB TO SR, HR 50S TO 60S. BP STABLE. ABDOMEN MODERATELY DISTENDED ( PATIENT STATES NORMAL FOR HER), SOFT, NONTENDER, WITH NORMOACTIVE BS NOTED. LAST BM ON THE 6TH. ATTENDS ON FOR INCONTINENCE OF URINE. SKIN FRAGILE. SCATTERED BRUISES AND SCABS NOTED T/O BODY. NAILS CLUBBED/ DUSKY. PATIENT HAS GENERALIZED, NONPITTING EDEMA. NS TKO INTO MEDIPORT. BED LOW, CALL LIGHT IN REACH. WILL CONTINUE TO MONITOR PATIENT FREQUENTLY THROUGHOUT SHIFT.
--- NOTE | 2018-12-14 11:55 | NUR ---
PATIENT RESTING QUIETLY IN BED. AFEBRILE. VITAL SIGNS REMAIN STABLE. NO COMPLAINTS OF PAIN. PATIENT FATHER AT BEDSIDE. NO ACUTE CHANGES TO NOTE ON AT THIS TIME. WILL CONTINUE TO MONITOR.
--- NOTE | 2018-12-14 12:29 | NUR ---
RECEIVED REPORT FROM ALIVIA ROBLERO RN, ASSUMED CARE, PATIENT IS LYING IN BED WITH EYES CLOSED, POTASSIUM IV INFUSING AT THIS TIME, DISCHARGE ORDERS IN PLACE, PATIENT WILL BE DISCHARGED LATER TODAY AFTER ANTIBIOTIC IS GIVEN.
[2018-12-14] MEDS ORDERED: Nebcin40 MG/ML IV (12:38)
--- NOTE | 2018-12-14 12:52 | NUR ---
RT CALLED TO ROOM TO SUCTION PATIENT.
--- NOTE | 2018-12-14 13:27 | NUR ---
PATRICK,RT, IN TO SUCTION PATIENT, PATIENT ASKED FOR MORE ATIVAN AND FENTANYL, STATED TO RT "THEN JUST LET ME IF I CAN'T HAVE IT", HOWEVER, WHEN PATIENT WAS ASKED IF SHE WANTED COMFORT CARE, SHE DENIED.
[2018-12-14 15:03] LABS: Tobramycin, Trough <0.3 ug/mL (0.0-1.9)
--- NOTE | 2018-12-14 15:36 | NUR ---
PATIENT RECEIVED XANAX 0.25 X2 TABLETS FOR ANXIETY, SWALLOWED PILLS WELL, CALL LIGHT IN REACH, WILL CONTINUE TO MONITOR.
--- NOTE | 2018-12-14 16:18 | NUR ---
PATIENT DISCHARGED TO HOME, PATIENT AND FATHER WERE GIVEN DISCHARGE INSTRUCTIONS WRITTEN AND VERBAL, BOTH VERBALIZED UNDERSTANDING, FATHER SIGNED DISCHARGE PAPERWORK, AWAITING ANTIBIOTIC TO FINISHE, WILL REMOVED PIV'S AND DISCONNECT PORT, CALL LIGHT IN REACH, WILL CONTINUE TO MONITOR.
--- NOTE | 2018-12-14 16:45 | NUR ---
PATIENT [facility]CHAR[facility] TO HOME[facility] INFUSING FML SYRINGE OF HEPARIN WITH 500 UNITS OF HEPARIN, 100 UNITS/ML, PIV'S REMOVED, PATIENT TOLERATED WELL, PATIENT LEFT PCU AND HOSPITAL VIA WHEELCHAIR, FATHER PROVIDED RIDE HOME VIA PRIVATE CAR.
== END 2018-12-14 17:00 | disposition home or self-care (01) | DRG 871 ==
LOC: ER 07:05 → ICUW 11:03 → ICUE 11:03 → PCU 11:03 → ICUE 11:10 → PCU 12-12 11:47
PROVIDERS: Emergency Medicine; Pharmacist; ADMIT Internal Medicine
DX: A41.52 Sepsis due to Pseudomonas (principal); R65.21 Severe sepsis with septic shock; J18.9 Pneumonia, unspecified organism; J96.21 Acute and chronic respiratory failure with hypoxia; J44.1 Chronic obstructive pulmonary disease with (acute) exacerbation; J44.0 Chronic obstructive pulmonary disease with (acute) lower respiratory infection; Z99.11 Dependence on respirator [ventilator] status; M80.88XA Other osteoporosis with current pathological fracture, vertebra(e), initial encounter for fracture; A41.9 Sepsis, unspecified organism; I10 Essential (primary) hypertension; I95.9 Hypotension, unspecified; D63.8 Anemia in other chronic diseases classified elsewhere; G89.4 Chronic pain syndrome; F41.9 Anxiety disorder, unspecified; Z79.52 Long term (current) use of systemic steroids; Z79.899 Other long term (current) drug therapy; Z87.891 Personal history of nicotine dependence; Z93.0 Tracheostomy status
CPT/HCPCS: 0099U; 31720; 36415; 71045; 80053; 80200; 81003; 83605; 85025; 85027; 85610; 85730; 87040; 87070; 87077; 87102; 87106; 87186; 87205; 93005; 93010; 94640; 94762; 96365-59; 96367-59; 96375-59; 99285-25; A9270; J0456; J0696; J0713; J1642; J1650; J2060; J2920; J2930; J3260; J3370; J3480; J7030; J7050; J7060; J7120; J7512; P9046

== ENCOUNTER 2018-12-15 16:33 | Day surgery (SDC) | payer OTHER | END 2018-12-15 23:24 | disposition home or self-care (01) | LOC: ATC 16:33 | DX: A41.52 Sepsis due to Pseudomonas (principal); R65.21 Severe sepsis with septic shock; J15.1 Pneumonia due to Pseudomonas; J44.9 Chronic obstructive pulmonary disease, unspecified; J96.10 Chronic respiratory failure, unspecified whether with hypoxia or hypercapnia; F41.9 Anxiety disorder, unspecified | CPT/HCPCS: 96523; J1642 ==

== ENCOUNTER → 2018-12-19 | Outpatient (CLI) | payer OTHER ==
[~2018-12-19] MED LIST changes: +DEEP SEA44 ML; +DORN1IH NEB; +LORA1 PO; +Norco 7.5-3251 EACH PO; +TYLENOL325 MG PO; +VITAMIN D32000 UNI1 PO
[2018-12-19 07:02] LABS: Creatinine, Blood 0.92 mg/dL (0.40-1.00); Glomerular Filtration Rate >60 (60-); Tobramycin, Trough 0.4 ug/mL (0.0-1.9)
== END | disposition home or self-care (01) ==
LOC: LAB SHORT 06:33 → LAB 06:33
PROVIDERS: Family Medicine
DX: A41.9 Sepsis, unspecified organism (principal); J44.1 Chronic obstructive pulmonary disease with (acute) exacerbation
CPT/HCPCS: 80200; 82565

== ENCOUNTER 2018-12-25 15:32 | Inpatient (IN) | payer OTHER ==
[~2018-12-25] VITALS: Ht 157.5 cm; Wt 72.4 kg
[~2018-12-25 15:32] MED LIST changes: -DEEP SEA44 ML; -DORN1IH NEB; -LORA1 PO; -Norco 7.5-3251 EACH PO; -TYLENOL325 MG PO; -VITAMIN D32000 UNI1 PO
[2018-12-25 16:09] LABS: Base Excess Venous 15.1 mmol/L; Bicarbonate Venous 36.7 mmol/L (24.0-30.0); PCO2 Venous 65.1 mmHg (38-42); PO2 Venous 109 mmHg (38-42)
[2018-12-25 16:14] LABS: BASOPHILS ABSOLUTE AUTO 0.06 K/mm3 (0.00-0.23); BASOPHILS PERCENT AUTO 0 % (0-2); EOSINOPHILS ABSOLUTE AUTO 0.02 K/mm3 (0.00-0.68); EOSINOPHILS PERCENT AUTO 0 % (0-6); Hematocrit 35.3 % (33.0-51.0); Hemoglobin 10.1 g/dL (11.5-16.0); IMMATURE GRAN ABSOLUTE AUTO 0.13 K/mm3 (0.00-0.10); IMMATURE GRAN PERCENT AUTO 1 % (0-1); LYMPHOCYTES ABSOLUTE AUTO 0.46 K/mm3 (0.84-5.20); LYMPHOCYTES PERCENT AUTO 3 % (21-46); MONOCYTES ABSOLUTE AUTO 0.44 K/mm3 (0.16-1.47); MONOCYTES PERCENT AUTO 3 % (4-13); Mean Corpuscular HGB 25.8 pg (26.0-34.0); Mean Corpuscular HGB Conc 28.6 g/dL (31.5-36.5); Mean Corpuscular Volume 90 fL (80-100); Mean Platelet Volume 11.7 fL (9.1-12.4); NEUTROPHILS ABSOLUTE AUTO 12.84 K/mm3 (1.96-9.15); NEUTROPHILS PERCENT AUTO 92 % (41-73); Platelet Count 277 K/mm3 (150-400); RDW Coefficient Variation 14.7 % (11.7-14.2); RDW Standard Deviation 48.6 fL (35.1-46.3); Red Blood Cell Count 3.91 M/mm3 (3.80-5.20); White Blood Cell Count 13.95 K/mm3 (4.00-11.30)
[2018-12-25 16:27] LABS: Alanine Aminotransfer (ALT/SGP 13 U/L (12-78); Albumin, Blood 2.9 g/dL (3.4-5.0); Albumin/Globulin Ratio 0.5 (0.8-1.8); Alk Phos 108 U/L (50-136); Anion Gap 4 mmol/L (6-16); Aspartate Aminotrans (AST/SGOT 7 U/L (12-37); Bilirubin, Total 0.3 mg/dL (0.1-1.0); Blood Urea Nitrogen 12 mg/dL (8-24); Bun/Creatinine Ratio 15.2 (12.0-20.0); CO2, Blood 38 mmol/L (21-32); Calcium, Blood 9.8 mg/dL (8.5-10.1); Chloride, Blood 99 mmol/L (98-108); Creatinine, Blood 0.79 mg/dL (0.40-1.00); Globulin, Blood 5.6 g/dL (2.2-4.0); Glomerular Filtration Rate >60 (60-); Glucose, Blood 139 mg/dL (70-99); Potassium, Blood 4.3 mmol/L (3.5-5.5); Sodium, Blood 141 mmol/L (136-145); Total Protein, Blood 8.5 g/dL (6.4-8.2); Troponin I <0.015 ng/mL (0.000-0.040)
[2018-12-25] MEDS ORDERED: SERT100 PO (17:48)
[2018-12-25] MEDS ORDERED: MIRT15 PO (17:50)
[2018-12-25] MEDS ORDERED: PANT40 PO (17:50)
[2018-12-25] MEDS ORDERED: BUSP5 PO (17:50)
[2018-12-25] MEDS ORDERED: Prednisone10 MG PO (17:50)
[2018-12-25] MEDS ORDERED: PREG75 PO (17:50)
[2018-12-25] MEDS ORDERED: FOLI1 PO (17:52)
[2018-12-25] MEDS ORDERED: TRAZ150T57 PO (17:53)
[2018-12-25] MEDS ORDERED: ASCO500 PO (17:53)
[2018-12-25] MEDS ORDERED: NIAC500 PO (17:54)
[2018-12-25] MEDS ORDERED: BACL10 PO (17:54)
[2018-12-25] MEDS ORDERED: GUAI600T33 PO (17:55)
[2018-12-25] MEDS ORDERED: VITAMIN D32000 UNI1 PO (17:55)
[2018-12-25] MEDS ORDERED: CENTRUM SILVER1 EAC2 PO (17:55)
[2018-12-25] MEDS ORDERED: ALBU90OI61 INH (17:56)
[2018-12-25] MEDS ORDERED: STIOLTO RESPIMAT4 GM INH (17:57)
[2018-12-25] MEDS ORDERED: ROFL500T PO (17:59)
[2018-12-25] MEDS ORDERED: AZIT250 PO (18:00)
[2018-12-25] MEDS ORDERED: DORN1IH NEB (18:07)
[2018-12-25] MEDS ORDERED: DEEP SEA44 ML (18:08)
[2018-12-25 19:07] LABS: Magnesium, Blood 2.3 mg/dL (1.6-2.4); Phosphorus, Blood 4.1 mg/dL (2.5-4.9)
--- NOTE | 2018-12-25 20:55 | NUR ---
PATIENT ARRIVED TO ICU 11 VIA GURNEY FROM ED WITH RT AND HOME VENT IN PLACE. PATIENT AWAKENS TO VERBAL STIMULI. TRANSFER TO BED USING SLIDER SHEET, AND PLACED ON ICU MONITOR. TRACH MIDLINE WITH HOME VENT IN PLACE SET AT SIMV PS 12 TV 500 PEEP 5, 5L/ BLEED IN. WHEN AWAKE PATIENT REQUESTING ATIVAN FOR ANXIETY. MEDIPORT EASY TO FLUSH BUT NOT ABLE TO GET ANY BLOOD RETURN, MEDIPORT DEACCESSED, REACCESSED WITH 1 INCH NEEDLE AND CONTINUED TO NOT GET BLOOD RETURN. SITE LEFT DEACCESSED.
[2018-12-25 21:58] LABS: PCO2 Arterial 53.5 mmHg (35-45); PO2 Arterial 73.9 mmHg (80-100); pH Blood Arterial 7.42 (7.35-7.45)
--- NOTE | 2018-12-26 01:49 | NUR ---
PATIENT BECOMING ANXIOUS AND SOB WITH TRACH CARE, ORDER OBTAINED FOR ATIVAN X1 TO HELP PATIENT RELAX. PATIENT NOW RESTING QUIETLY AND ABLE TO TITRATE TITRATING OXYGEN BACK DOWN. RT ASSISTING WITH HOME VENT.
[2018-12-26 04:01] LABS: BASOPHILS ABSOLUTE AUTO 0.02 K/mm3 (0.00-0.23); BASOPHILS PERCENT AUTO 0 % (0-2); EOSINOPHILS PERCENT AUTO 0 % (0-6); Hematocrit 28.7 % (33.0-51.0); Hemoglobin 8.4 g/dL (11.5-16.0); Mean Corpuscular HGB 26.5 pg (26.0-34.0); Mean Corpuscular HGB Conc 29.3 g/dL (31.5-36.5); Mean Corpuscular Volume 91 fL (80-100); Mean Platelet Volume 11.7 fL (9.1-12.4); Platelet Count 213 K/mm3 (150-400); RDW Coefficient Variation 14.5 % (11.7-14.2); RDW Standard Deviation 48.8 fL (35.1-46.3); Red Blood Cell Count 3.17 M/mm3 (3.80-5.20); White Blood Cell Count 10.51 K/mm3 (4.00-11.30)
[2018-12-26 04:03] LABS: IMMATURE GRAN ABSOLUTE AUTO 0.06 K/mm3 (0.00-0.10); IMMATURE GRAN PERCENT AUTO 1 % (0-1); LYMPHOCYTES ABSOLUTE AUTO 0.47 K/mm3 (0.84-5.20); LYMPHOCYTES PERCENT AUTO 5 % (21-46); MONOCYTES ABSOLUTE AUTO 0.05 K/mm3 (0.16-1.47); MONOCYTES PERCENT AUTO 1 % (4-13); NEUTROPHILS ABSOLUTE AUTO 9.91 K/mm3 (1.96-9.15); NEUTROPHILS PERCENT AUTO 94 % (41-73)
[2018-12-26 04:17] LABS: Anion Gap 7 mmol/L (6-16); Blood Urea Nitrogen 18 mg/dL (8-24); Bun/Creatinine Ratio 25.8 (12.0-20.0); CO2, Blood 32 mmol/L (21-32); Calcium, Blood 8.5 mg/dL (8.5-10.1); Chloride, Blood 107 mmol/L (98-108); Glomerular Filtration Rate >60 (60-); Glucose, Blood 128 mg/dL (70-99); Potassium, Blood 4.1 mmol/L (3.5-5.5); Sodium, Blood 146 mmol/L (136-145)
--- NOTE | 2018-12-26 05:50 | NUR ---
SUMMARY PATIENT SLEEPING OFF AND ON T/O NIGHT. TRACH MIDLINE WITH HOME VENT SET AT SIMV 16, TV 500, PS 12, PEEP 5, OXYGEN 5L/BLEED IN. SUCTIONING THICK LIGHT YELLOW SPUTUM. PATIENT VERBALIZED FEELING ANXIOUS AND SOB AT TIMES. PATIENT REQUIRING FREQUENT REASSURANCE. PATIENT VERBALIZED NO URGE TO URINATE AT THIS TIME. VSS T/O NIGHT, NO FURTHER HYPOTENSION.
--- NOTE | 2018-12-26 08:30 | NUR ---
ASSESSMENT- PT AWAKENS EASILY, C/O NOT BREATHING WELL. OXYGEN SATURATIONS STABLE. REQUESTS TO BE BAGGED-DONE BUT DID NOT IMPROVE SATURATIONS. EXPLAINED PLAN OF CARE, REASSURANCE GIVEN. ASSISTED TO REPOSITION FOR COMFORT. LUNGS WITH WHEEZES T/O, IV STEROIDS. ON HOME VENT-SEE SETTINGS. NSR. BP STABLE. PIV INTACT WITH LR AT 75 CC/HR. SKIN FRAGILE. DENIES NEED TO VOID. ABLE TO USE CALL LIGHT. MOUTHS WORDS TO MAKE NEEDS KNOWN.
--- NOTE | 2018-12-26 09:55 | NUR ---
PT ANXIOUS, THICK CREAM SECRETIONS SUCTIONED, HUMIDIFIER CHANGED. DOING BETTER NOW. PT'S DAD HERE-UPDATED.
[2018-12-26 10:29] LABS: Source, Urine Catheter
[2018-12-26 10:40] LABS: Bilirubin, Urine Neg (Neg); Blood, Urine Neg (Neg); Glucose Qualitative, Urine Neg (Neg); Ketones, Urine 1+ (Neg); Leukocyte Esterase, Urine Neg (Neg); Nitrite, Urine Neg (Neg); Protein, Urine Neg (Neg); Specific Gravity, Urine 1.015 (1.003-1.022); Urobilinogen, Urine NORM (Normal)
[2018-12-26 10:44] LABS: Appearance, Urine Clear (Clear); Color, Urine Yellow (P-Yellow)
--- NOTE | 2018-12-26 13:47 | NUR ---
PT HAS BEEN RESTING WITHOUT COMPLAINTS. HIGH LACTATE CALLED TO PYSICIAN. NS TO START.
[2018-12-26 14:20] LABS: Source, Urine Catheter
[2018-12-26 14:24] LABS: Bilirubin, Urine Neg (Neg); Blood, Urine Neg (Neg); Glucose Qualitative, Urine Neg (Neg); Ketones, Urine Neg (Neg); Leukocyte Esterase, Urine Neg (Neg); Nitrite, Urine Neg (Neg); Protein, Urine Neg (Neg); Urobilinogen, Urine NORM (Normal)
[2018-12-26 14:33] LABS: Appearance, Urine Clear (Clear); Color, Urine Yellow (P-Yellow)
--- NOTE | 2018-12-26 15:54 | NUR ---
PT HAS BEEN ABLE TO REST.RECEIVING FLUID BOLUS. REQUESTING ATIVAN FOR ANXIETY. C/O ANXIETY WHENEVER AWAKE. EXPLAINED PLAN OF CARE, ATTEMPT TO REPOSITION BUT MOST COMFORTABLE ON SIDE. RX GIVEN NSR. LUNGS CLEAR, TOLERATING HOME VENT
--- NOTE | 2018-12-26 17:49 | NUR ---
MEDIPORT INTACT, BLOOD RETURN CHECKED-GOOD BLOOD RETURN. FLUID BOLUS 2100 CC INFUSED AND NS AT 125 CC/HR NOW. ANASARCA. REPOSITIONED SELF WITH MUCH ENCOURAGEMENT. TOLERATING VENT. REFUSES FOOD. VSS.
--- NOTE | 2018-12-26 19:17 | NUR ---
PT EATING DINNER THAT DAD BROUGHT IN WITHOUT PROBLEMS. DR. POSTTRATE HERE-UPDATED. TOLERATING VENT. TAKES FREQUENT BREAKS WITH EATING FOR REST. NO S/S ASPIRATION
--- NOTE | 2018-12-26 19:30 | NUR ---
PATIENT RESTING IN BED VISITING WITH HER FATHER. EATING SMALL AMT OF FOOD HE BROUGHT IN FOR HER. DOCTOR ISTRATE IN, AND NOTIFIED OF POOR URINE OUTPUT. SEE NEW ORDERS. TRACH REMAINS IN PLACE MIDLINE WITH HOME VENT SET AT SIMV 16, TV 55, PEEP 5, PS 12, OXYGEN 5L. SUCTIONING THICK LIGHT YELLOW SPUTUM VIA TRACH.
--- NOTE | 2018-12-26 22:39 | NUR ---
PATIENT RESTING QUIETLY WITH HOME VENT TO TRACH. PATIENT BARBARA PO MEDICATIONS WELL, OXYGEN INCREASED TO 7L WHILE TAKING MEDICATIONS AND PREPARING FOR BED. OXYGEN IS NOW BACK TO 5L. ZENDEJAS REMAINS IN PLACE DRAINING LARGE AMT OF CLEAR YELLOW URINE POST LASIX, NO NEED FOR 2ND 10MG OF LASIX.
[2018-12-26 22:43] LABS: Adenovirus Not Detected (NOT DETECT); Bordetella pertussis Not Detected (NOT DETECT); Chlamydophila pneumoniae Not Detected (NOT DETECT); Coronavirus 229E Not Detected (NOT DETECT); Coronavirus HKU1 Not Detected (NOT DETECT); Coronavirus NL63 Not Detected (NOT DETECT); Coronavirus OC43 Not Detected (NOT DETECT); Human Metapneumovirus Not Detected (NOT DETECT); Human Rhinovirus/Enterovirus Not Detected (NOT DETECT); Influenza A Not Detected (NOT DETECT); Influenza A/2009-H1 Not Detected (NOT DETECT); Influenza A/H1 Not Detected (NOT DETECT); Influenza A/H3 Not Detected (NOT DETECT); Influenza B Not Detected (NOT DETECT); Mycoplasma pneumoniae Not Detected (NOT DETECT); Parainfluenza Virus 1 Not Detected (NOT DETECT); Parainfluenza Virus 2 Not Detected (NOT DETECT); Parainfluenza Virus 3 Not Detected (NOT DETECT); Parainfluenza Virus 4 Not Detected (NOT DETECT); Respiratory Syncytial Virus Not Detected (NOT DETECT)
--- NOTE | 2018-12-27 05:55 | NUR ---
SUMMARY PATIENT SLEEPING OFF AND ON T/O NIGHT WITH HOME VENT TO TRACH. VENT SET AT SIMV 16, TV 500, PEEP 5, PS 12, WITH 5L OXYGEN. CONTINUE TO SUCTION THICK WHITE TO YELLOW SPUTUM. PATIENT HAVING FEELING OF SOB WITH SLIGHT ACTIVITY. ATIVAN IV GIVEN X2 DUE TO PATIENT VERBALIZING FEELING ANXIOUS. PATIENT REPOSITIONING SELF FOR COMFORT T/O NIGHT. PATIENT HAVING GOOD URINE OUTPUT AFTER IV LASIX GIVEN, ZENDEJAS CATH REMAINS IN PLACE.
--- NOTE | 2018-12-27 07:15 | NUR ---
BEGINNING OF SHIFT Assumed care at 0700 with Vania PELAYO. Bedside report received from Alma Rosa PELAYO. Pt on home venilator with 5 LPM. Pt laying in bed. Unable to vocalize due to trach. Pt mouths words to make needs known. Pt asks when next ativan is available. Pt updated.
[2018-12-27 07:20] LABS: Vancomycin, Trough 25.1 ug/mL (5.0-10.0)
[2018-12-27 08:54] LABS: BASOPHILS PERCENT AUTO 0 % (0-2); EOSINOPHILS PERCENT AUTO 0 % (0-6); Hematocrit 25.7 % (33.0-51.0); Hemoglobin 7.8 g/dL (11.5-16.0); IMMATURE GRAN ABSOLUTE AUTO 0.06 K/mm3 (0.00-0.10); IMMATURE GRAN PERCENT AUTO 1 % (0-1); LYMPHOCYTES ABSOLUTE AUTO 0.37 K/mm3 (0.84-5.20); LYMPHOCYTES PERCENT AUTO 4 % (21-46); MONOCYTES ABSOLUTE AUTO 0.08 K/mm3 (0.16-1.47); MONOCYTES PERCENT AUTO 1 % (4-13); Mean Corpuscular HGB 27.3 pg (26.0-34.0); Mean Corpuscular HGB Conc 30.4 g/dL (31.5-36.5); Mean Corpuscular Volume 90 fL (80-100); Mean Platelet Volume 12.2 fL (9.1-12.4); NEUTROPHILS ABSOLUTE AUTO 9.88 K/mm3 (1.96-9.15); NEUTROPHILS PERCENT AUTO 95 % (41-73); Platelet Count 220 K/mm3 (150-400); RDW Coefficient Variation 14.7 % (11.7-14.2); Red Blood Cell Count 2.86 M/mm3 (3.80-5.20); White Blood Cell Count 10.39 K/mm3 (4.00-11.30)
[2018-12-27 09:15] LABS: Alanine Aminotransfer (ALT/SGP 8 U/L (12-78); Albumin/Globulin Ratio 0.5 (0.8-1.8); Alk Phos 69 U/L (50-136); Anion Gap 10 mmol/L (6-16); Aspartate Aminotrans (AST/SGOT 6 U/L (12-37); Bilirubin, Total 0.2 mg/dL (0.1-1.0); Blood Urea Nitrogen 17 mg/dL (8-24); Bun/Creatinine Ratio 22.4 (12.0-20.0); CO2, Blood 26 mmol/L (21-32); Calcium, Blood 7.9 mg/dL (8.5-10.1); Chloride, Blood 113 mmol/L (98-108); Creatinine, Blood 0.76 mg/dL (0.40-1.00); Glomerular Filtration Rate >60 (60-); Glucose, Blood 146 mg/dL (70-99); Potassium, Blood 3.3 mmol/L (3.5-5.5); Sodium, Blood 149 mmol/L (136-145)
--- NOTE | 2018-12-27 10:58 | NUR ---
DR BRISCOE IN TO SEE PT Provider at bedside 1030. States plan to keep pt in ICU for one more day. [facility] pt is not appropriate for PCU transfer at this time. Pt's father states pt has appointment at Dr Carrasquillo's office on 12/[address] Briscoe aware. This RN placed call to Dr Carrasquillo's office to notify that pt is currently inpatient and cannot make appointment on 12/28.
--- NOTE | 2018-12-27 16:04 | NUR ---
UPDATE FROM DR STANTON'S SUPPLY CHAIN VICE PRESIDENT to call office on date of discharge and provider will change pt's trach.
--- NOTE | 2018-12-27 18:02 | NUR ---
SUMMARY No acute changes since beginning of shift. Pt anxious, often asks when next ativan is due. Pt often states she cannot breathe. During these episodes, SpO2 94% or greater and tidal volumes greater than 400 mL per ventilator. Pt unrecptive to education, communicating "the numbers don't matter". Pt repositions in bed independently. Neck roll and fan provided for comfort. Pt requested pain meds, stating discomfort to back. Tylenol provided. No additional complaint of pain. Will continue to closely monitor until care handoff and bedside report with oncoming RN.
--- NOTE | 2018-12-27 20:05 | NUR ---
ASSUMED CARE OF PT AT 1915. REPORT RECEIVED. PT PRESENTS IN BED. HAS REMOVED HER BLOOD PRESSURE CUFF AND HER OXIMETER. REPLACED THOSE. PT MAINTAINS > 90 PERCENT ON HOME VENT WITH 3 LITER BLEED IN OXYGEN. PT PLEASANT AND COOPERATIVE WITH CARE AND ASSESSMENT. HAS NO COMPLAINTS OF PAIN. PT'S DAD, DEWEY COMES IN TO SEE PT. HE SUCTIONS PT PER HER TRACH. PT THEN REQUESTS FOR HER OXYGEN TO BE TURNED UPWARDS TO SUPPLEMENT DYSPNEA WITH SUCTIONING. THIS DONE. RT HAS SUBSEQUENTLY PUT LITER FLOW BACK FOLLOWING PT'S RECOVERY. WILL REVIEW CHART AND PLAN OF CARE FOR THIS PT.
--- NOTE | 2018-12-28 | NUR ---
PT ABLE TO MOVE HERSELF ABOUT IN BED. PT CONTINUES WITH HOME VENT. OCCASSIONAL IN-LINE SUCTIONING DONE OF TRACH WITH RETURN OF THICK YELLOW SECRETIONS. PT MAINTAINS > 90 PERCENT SATURATIONS WITH ESTABILISHED SETTINGS. WILL CONTINUE TO MONITOR PT.
[2018-12-28 04:20] LABS: BASOPHILS ABSOLUTE AUTO 0.01 K/mm3 (0.00-0.23); BASOPHILS PERCENT AUTO 0 % (0-2); EOSINOPHILS PERCENT AUTO 0 % (0-6); Hematocrit 27.4 % (33.0-51.0); Hemoglobin 8.1 g/dL (11.5-16.0); IMMATURE GRAN ABSOLUTE AUTO 0.07 K/mm3 (0.00-0.10); IMMATURE GRAN PERCENT AUTO 1 % (0-1); LYMPHOCYTES PERCENT AUTO 4 % (21-46); MONOCYTES PERCENT AUTO 1 % (4-13); Mean Corpuscular HGB 26.1 pg (26.0-34.0); Mean Corpuscular HGB Conc 29.6 g/dL (31.5-36.5); Mean Corpuscular Volume 88 fL (80-100); Mean Platelet Volume 11.7 fL (9.1-12.4); NEUTROPHILS ABSOLUTE AUTO 8.84 K/mm3 (1.96-9.15); NEUTROPHILS PERCENT AUTO 94 % (41-73); Platelet Count 218 K/mm3 (150-400); White Blood Cell Count 9.42 K/mm3 (4.00-11.30)
[2018-12-28 04:42] LABS: Anion Gap 7 mmol/L (6-16); Blood Urea Nitrogen 16 mg/dL (8-24); CO2, Blood 28 mmol/L (21-32); Calcium, Blood 8.1 mg/dL (8.5-10.1); Chloride, Blood 117 mmol/L (98-108); Glomerular Filtration Rate >60 (60-); Glucose, Blood 125 mg/dL (70-99); Potassium, Blood 3.6 mmol/L (3.5-5.5); Sodium, Blood 152 mmol/L (136-145)
--- NOTE | 2018-12-28 06:49 | NUR ---
PT BEGINS TO REQUEST HER ATIVAN AT ABOUT 4 HOURS AFTER DOSE GIVEN. HAVE EXPLAINED TO PT THAT ATIVAN IS ORDERED NEEDED EVERY 6 HOURS. PT ACKNOWLEDGES THIS. CONTINUES ON 4 LITER BLEED IN OXYGEN PER HER HOME VENT. PT DOES BECOME DYSPNEIC WITH SUCTIONING OR EXERTION. REQUESTS HER OXYGEN TO BE INCREASED WITH EACH EPISODE. PT'S DAD DOES NOT STAY THE NIGHT TONIGHT. WILL CONTINUE TO MONITOR PT, AND WILL REPORT OFF TO ONCOMING RN.
--- NOTE | 2018-12-28 10:55 | NUR ---
0836.. PT RESP STATUS STABLE DISPITE PT ANXIETY. PT NOTED SOME LOW BACK PAIN AND LEG PAIN AND WILL ADDRESS WITH . YAIMA NOTED AND STABLE. SOME YELLOW SECREATIONS NOTED WITH SX AND PT ON 5L BLEED IN TO HOME VENT. VSS. [id number] DR STANTON OFFICE CALLED RE CONSULT FOR TRACH EXCHANGE.
--- NOTE | 2018-12-28 11:09 | NUR ---
PT FAMILY IN AND PT CALM CURRENTLY.
--- NOTE | 2018-12-28 12:06 | NUR ---
DR. MAXIMINO STANTON AT BEDSIDE FOR TRACH CHANGE. ASSIST BY RT MONY. PT MED WITH 2MG IV VERSED PRIOR.
--- NOTE | 2018-12-28 12:30 | NUR ---
PT STATUS REPORT GIVEN TO JG MOE AND PT TO BE TO PCU-5 VIA BED WITH RT IN ATTENDANCE FOR VENT TRANSPORT. PT HAS BEEN SLEEPING ON VERSED AND EARLIER ATIVAN W/O DISTRESS.
--- NOTE | 2018-12-28 14:31 | NUR ---
NOTE PT ARRIVED TO UNIT FROM ICU VIA BED. PEER STAFF WERE ABLE TO GET PT SETTLED INTO ROOM, WHILE I WAS AT LUNCH. UPON RETURN FROM LUNCH WAS ABLE TO ASSESS PT AND NOTE THAT ASSESSMENT FINDINGS FROM MRDANE WERE UNCHANGED. PT VITAL SIGNS STABLE. AND PT DENIES ANY NEEDS AT THIS TIME. FAMILY AT BEDSDIE. BED IN LOW POSIITOIN, CALL LIGHT IN REACH AND PT DENIES ANY NEEDS AT THIS TIME.
--- NOTE | 2018-12-28 19:27 | NUR ---
SHIFT SUMMARY PT REMAINS A&OX. ASSESSMENT FINDINGS REMAIN UNCHANGED SINCE ARRIVAL TO UNIT. PT ABLE TO REST FOR MOST OF SHIFT. OXYGEN BLEED IN REMAINS UNCHANGE WITH OXYGEN SAT SIN 94-97%. ZENDEJAS REMAINS IN [place], PATENT AND DRAINING. WAS ABLE TO MAKE USE OF SOME CONVERSATION TO HELP CONTROL PT ANXIETY AT TIMES. OTHERWISE SUED PRN MEDICATION NEEDED. FAMILY AT BEDSIDE INTERMITTENTLY. BED IN LOW POSITION, CALL LIGHT IN REACH AND PT DENIES ANY NEEDS. WILL CONTINUE TO MONITOR UNTIL HANDOFF TO NIGHTSHIFT RN.
--- NOTE | 2018-12-28 20:22 | NUR ---
CARE ASSUMPTION PT A&O X4. VSS. SPO2 > 92% WITH 11L O2 VIA TRACH. PT REQUESTING OXYGEN BE TURNED UP. O2 NOT INCREASED AND TIME SPENT EDUCATIIONG REASONING W/ PT BY RT AND RN. PT NOT PLEASED. PT REQUESTING PAIN MEDICATION. PT INFORMED IT IS TOO SOON FOR PAIN MEDICATION TX PER EMAR. PT REQUESTING ATIVAN, ATIVAN PROVIDED PER EMAR. PAIN MEDICATION AND ATIVAN TIMES DISCUSSED W/ PT AND TIMES WRITTEN ON PT'S WHITE BOARD FOR VISUAL REMINDER OF TIME ALLOWANCES. WILL CONTINUE TO MONITOR AND PROVIDE CARE.
--- NOTE | 2018-12-29 05:21 | NUR ---
SHIFT SUMMARY PT A&O X4. NONVERBAL W/ TRACH. PT ABLE TO COMMUNICATE NEEDS BY MOUTHING WORDS, GESTURING, &/OR WRITING. SPO2 > 92% W/ 11L BLEED IN O2 UPON CARE ASSUMPTION, NOW TITRRATED TO 5L O2. PT STATES FRUSTRATION W/ STAFF FOR NOT INCREASING O2 WHEN SPO2 > 92% AND PT NOT LABORING TO BREATHE (SEE PREVIOUS CARE ASSUMPTION NOTE). PT BREATHING COMFORTABLY AT THIS TIME ON 5L VIA TRACH. PT REQUESTING ATIVAN AND PAIN MEDICATION REGULARLY. PT C/O LOWER BACK PAIN, MEDICATING PER EMAR. PT SLEEPING MUCH OF THE NIGHT. ZENDEJAS CATH PATENT AND DRAINING. SCRATCHES, SCABS, AND BRUISING NOTE TO BE SCATTERED T/O PT'S EXTREMITIES. WILL PT IN BED W/ CALL LIGHT IN REACH. WILL CONTINUE TO MONITOR AND PROVIDE CARE UNTIL REPORT OFF TO DAY SHIFT RN.
[2018-12-29 08:58] LABS: BASOPHILS ABSOLUTE AUTO 0.02 K/mm3 (0.00-0.23); BASOPHILS PERCENT AUTO 0 % (0-2); EOSINOPHILS PERCENT AUTO 0 % (0-6); Hematocrit 31.7 % (33.0-51.0); IMMATURE GRAN ABSOLUTE AUTO 0.21 K/mm3 (0.00-0.10); IMMATURE GRAN PERCENT AUTO 2 % (0-1); LYMPHOCYTES ABSOLUTE AUTO 0.51 K/mm3 (0.84-5.20); LYMPHOCYTES PERCENT AUTO 5 % (21-46); MONOCYTES ABSOLUTE AUTO 0.11 K/mm3 (0.16-1.47); MONOCYTES PERCENT AUTO 1 % (4-13); Mean Corpuscular HGB 25.9 pg (26.0-34.0); Mean Corpuscular HGB Conc 28.4 g/dL (31.5-36.5); NEUTROPHILS ABSOLUTE AUTO 8.72 K/mm3 (1.96-9.15); NEUTROPHILS PERCENT AUTO 91 % (41-73); NRBC ABSOLUTE 0.02 K/mm3 (0.00-0.02); NRBC Auto 0.2 /100 WBC (0.0-0.2); RDW Coefficient Variation 15.2 % (11.7-14.2); RDW Standard Deviation 50.8 fL (35.1-46.3); Red Blood Cell Count 3.47 M/mm3 (3.80-5.20); White Blood Cell Count 9.57 K/mm3 (4.00-11.30)
[2018-12-29 09:04] LABS: Mean Corpuscular Volume 91 fL (80-100); Mean Platelet Volume 11.7 fL (9.1-12.4); Platelet Count 202 K/mm3 (150-400)
[2018-12-29 09:08] LABS: Anion Gap 8 mmol/L (6-16); Blood Urea Nitrogen 19 mg/dL (8-24); CO2, Blood 25 mmol/L (21-32); Calcium, Blood 8.9 mg/dL (8.5-10.1); Chloride, Blood 113 mmol/L (98-108); Creatinine, Blood 0.83 mg/dL (0.40-1.00); Glomerular Filtration Rate >60 (60-); Glucose, Blood 145 mg/dL (70-99); Potassium, Blood 3.7 mmol/L (3.5-5.5); Sodium, Blood 146 mmol/L (136-145)
--- NOTE | 2018-12-29 09:31 | NUR ---
PCU DAYSHIFT ASSUMED CARE OF PT APPROX. 0700. PT A&OX4. VITAL SIGNS STABLE. ASSESSMENT COMPLETED. PT HAS 9L OXYGEN GOING IN TRACH. TRACH REMAINS INTACT AND SECURE. BRUISING AND SCABS ON SKIN REMAIN UNCHANGED FROM PREVIOUS DAY. PT HAS ZENDEJAS IN PLACE, PATENT AND DRAINING AT THIS TIME. [email or web address] CONTINUES TO HAVE N.S. RUNNING AT THIS TIME. PT REPORTS FEELING BETTER THIS MORNING THAN SHE HAS. SHE REPORTS SHE FEELS HER DEPRESSION MADE HER FEEL WORSE BEFORE AND THAT THIS HAS IMPROVED THIS MORNING. PHYSICIAN IN TO SEE PT THIS MORNING AND REPROT HE WILL SEND PT HOME TDOAY WITH ORAL ANTIBIOTICS. PT AWARE AND OKAY WITH THIS. BED IN LOW POSITION, CALL LIGHT IN REACH AND PT DENIES ANY NEEDS AT THIS TIME.
[2018-12-29] MEDS ORDERED: TYLENOL325 MG PO (11:33)
[2018-12-29] MEDS ORDERED: Norco 7.5-3251 EACH PO (11:34)
[2018-12-29] MEDS ORDERED: LORA1 PO (11:35)
[2018-12-29] MEDS ORDERED: ONDA4ODT MM (11:37)
[2018-12-29] MEDS ORDERED: Augmentin 875-1 EACH PO (11:37)
[2018-12-29] MEDS ORDERED: Florastor250 MG PO (11:38)
--- NOTE | 2018-12-29 11:46 | NUR ---
NOTE AASHISH TOVAR REMOVED BY PEER STAFF MEMBER APPROX. 1040.
--- NOTE | 2018-12-29 13:50 | NUR ---
NOTE PT GOT UP TO BEDSIDE COMMODE WITH ASSISTANCE OF RAllyssaT. PT REPORTS URINATED IN COMMODE ALONG WITH HAVING LOOSE BROWN STOOL WITH THIS. THIS WAS APPROX. 1300
--- NOTE | 2018-12-29 14:18 | NUR ---
DISCHARGE RECIEVED DISCHARGE ORDERS FROM PMD. DISCHARGE PROCESS COMPLETED. MEDICATIONS FAXED TO [facility]. RECIEVED WRITTEN PRESCRIPTION FOR A COUPLE OF MEDICATIONS. THIS WAS PROVIDED TO PT UPON DEPARTING UNIT. DISCHARGE PAPER DISCUSSED WITH PT AND FAMILY. PT THEN ESCORT BY MYSELF AND A APEER STAFF MEMBER VIA WHEELCHAIR TO AUTOMOBILE. STAFF STAYED WITH PT UNIT PT WAS COMPLETLY IN CAR AND READY TO TAKE OFF. NO S/SX OF ACUTE DISTRESS AT TIME OF DEPARTING UNIT
== END 2018-12-29 14:06 | disposition home or self-care (01) | DRG 871 ==
LOC: ER 15:32 → ICUW 18:50 → PCU 12-28 12:44
PROVIDERS: Emergency Medicine; Family Medicine; Nurse Practitioner Acute Care; ADMIT Hospitalist
PROC: 5A1945Z Respiratory Ventilation, 24-96 Consecutive Hours (ICD-10-PCS; principal; 2018-12-25)
DX: A41.52 Sepsis due to Pseudomonas (principal); J96.21 Acute and chronic respiratory failure with hypoxia; G93.41 Metabolic encephalopathy; J96.22 Acute and chronic respiratory failure with hypercapnia; J15.1 Pneumonia due to Pseudomonas; Z93.0 Tracheostomy status; J43.9 Emphysema, unspecified; Z87.891 Personal history of nicotine dependence; Z90.2 Acquired absence of lung [part of]; M81.0 Age-related osteoporosis without current pathological fracture; I10 Essential (primary) hypertension; F41.9 Anxiety disorder, unspecified; G89.4 Chronic pain syndrome
CPT/HCPCS: 0099U; 31720; 36415; 36600; 51702; 71045; 80048; 80053; 80202; 81003; 82803; 82947; 83605; 83735; 83880; 84100; 84145; 84484; 85025; 87040; 87070; 87077; 87186; 87205; 93005; 93010; 94640; 94762; 96361-59; 96365-59; 96367-59; 96375-59; 97110; 97163; 99285-25; A9270; J1642; J1650; J1940; J2060; J2250; J2310; J2543; J2930; J3370; J7030; J7040; J7120

== ENCOUNTER 2019-02-02 01:11 | Day surgery (SDC) | payer OTHER ==
[~2019-02-02 01:11] MED LIST changes: +DEEP SEA44 ML; +DORN1IH NEB; +LORA1 PO; +Norco 7.5-3251 EACH PO; +TYLENOL325 MG PO; +VITAMIN D32000 UNI1 PO
== END 2019-02-02 17:05 | disposition home or self-care (01) ==
LOC: ATC 01:11
DX: J01.00 Acute maxillary sinusitis, unspecified (principal); M79.10 Myalgia, unspecified site; R23.2 Flushing; J44.9 Chronic obstructive pulmonary disease, unspecified; Z79.899 Other long term (current) drug therapy; Z87.891 Personal history of nicotine dependence; Z79.51 Long term (current) use of inhaled steroids
CPT/HCPCS: 96523; 99211; J1642

== ENCOUNTER 2019-03-09 00:25 | Day surgery (SDC) | payer OTHER | END 2019-03-09 15:28 | disposition home or self-care (01) | LOC: ATC 00:25 | DX: Z45.2 Encounter for adjustment and management of vascular access device (principal); J44.9 Chronic obstructive pulmonary disease, unspecified; Z87.891 Personal history of nicotine dependence; Z88.8 Allergy status to other drugs, medicaments and biological substances | CPT/HCPCS: J1642 ==

== ENCOUNTER 2019-04-29 12:31 | Inpatient (IN) | payer OTHER ==
[~2019-04-29] VITALS: Ht 165.1 cm; Wt 70.7 kg
[2019-04-29 12:57] LABS: Bicarbonate Venous 28.8 mmol/L (24.0-30.0); PCO2 Venous 58.3 mmHg (38-42); PO2 Venous 56.5 mmHg (38-42); pH Blood Venous 7.35 (7.34-7.37)
[2019-04-29 13:03] LABS: BASOPHILS ABSOLUTE AUTO 0.07 K/mm3 (0.00-0.23); BASOPHILS PERCENT AUTO 1 % (0-2); EOSINOPHILS ABSOLUTE AUTO 0.09 K/mm3 (0.00-0.68); EOSINOPHILS PERCENT AUTO 1 % (0-6); Hematocrit 32.2 % (33.0-51.0); Hemoglobin 9.4 g/dL (11.5-16.0); IMMATURE GRAN ABSOLUTE AUTO 0.05 K/mm3 (0.00-0.10); IMMATURE GRAN PERCENT AUTO 0 % (0-1); LYMPHOCYTES ABSOLUTE AUTO 0.95 K/mm3 (0.84-5.20); LYMPHOCYTES PERCENT AUTO 8 % (21-46); MONOCYTES ABSOLUTE AUTO 0.73 K/mm3 (0.16-1.47); MONOCYTES PERCENT AUTO 6 % (4-13); Mean Corpuscular HGB 26.3 pg (26.0-34.0); Mean Corpuscular HGB Conc 29.2 g/dL (31.5-36.5); Mean Corpuscular Volume 90 fL (80-100); Mean Platelet Volume 11.1 fL (9.1-12.4); NEUTROPHILS PERCENT AUTO 85 % (41-73); Platelet Count 267 K/mm3 (150-400); RDW Coefficient Variation 15.4 % (11.7-14.2); RDW Standard Deviation 50.8 fL (35.1-46.3); Red Blood Cell Count 3.58 M/mm3 (3.80-5.20); White Blood Cell Count 12.49 K/mm3 (4.00-11.30)
[2019-04-29 13:16] LABS: International Normalized Ratio 1.02; Prothrombin Time Results 10.8 Sec (9.7-11.5)
[2019-04-29 13:21] LABS: Alanine Aminotransfer (ALT/SGP 13 U/L (12-78); Albumin, Blood 2.6 g/dL (3.4-5.0); Albumin/Globulin Ratio 0.7 (0.8-1.8); Alk Phos 98 U/L (50-136); Anion Gap 2 mmol/L (6-16); Aspartate Aminotrans (AST/SGOT 11 U/L (12-37); Bilirubin, Total 0.2 mg/dL (0.1-1.0); Blood Urea Nitrogen 13 mg/dL (8-24); Bun/Creatinine Ratio 15.2 (12.0-20.0); CO2, Blood 33 mmol/L (21-32); Calcium, Blood 8.5 mg/dL (8.5-10.1); Chloride, Blood 108 mmol/L (98-108); Creatinine, Blood 0.86 mg/dL (0.40-1.00); Globulin, Blood 3.9 g/dL (2.2-4.0); Glomerular Filtration Rate >60 (60-); Glucose, Blood 97 mg/dL (70-99); Potassium, Blood 3.5 mmol/L (3.5-5.5); Sodium, Blood 143 mmol/L (136-145); Total Protein, Blood 6.5 g/dL (6.4-8.2)
[2019-04-29] MEDS ORDERED: TUMS500 MG PO (15:24)
[2019-04-29 17:14] LABS: Source, Urine Catheter
[2019-04-29 17:19] LABS: Appearance, Urine Clear (Clear); Bilirubin, Urine Neg (Neg); Blood, Urine 1+ (Neg); Color, Urine Yellow (P-Yellow); Glucose Qualitative, Urine Neg (Neg); Ketones, Urine Neg (Neg); Leukocyte Esterase, Urine Neg (Neg); Nitrite, Urine Neg (Neg); Protein, Urine Neg (Neg); Specific Gravity, Urine 1.005 (1.003-1.022); Urobilinogen, Urine NORM (Normal)
[2019-04-29 17:27] LABS: Bacteria Few /hpf; Red Blood Cells, Urine 0-2 /hpf (0-2); Squamous Epithelial Cells Rare /hpf (Few); White Blood Cells, Urine 0-2 /hpf (0-5)
[2019-04-29 18:13] LABS: PCO2 Arterial 50.2 mmHg (35-45); PO2 Arterial 60.9 mmHg (80-100); pH Blood Arterial 7.42 (7.35-7.45)
--- NOTE | 2019-04-29 20:01 | NUR ---
SHIFT SUMMARY: RECEIVED PT FROM ED AT 1555. TACHYCARDIC IN 160'S, VERY ANXIOUS, BP STABLE. ON HOME TRILOGY VENTILATOR WITH O2 @ 7 L/MIN BLED IN, TRACHEOSTOMY IN PLACE. C/O DAS AND CHRONIC PAIN, IS REQUESTING ATIVAN FOR ANXIETY. RECEIVED TELEPHONE ORDER FROM DR. DRAKE FOR ATIVAN X 1, GIVEN. ABLE TO SWALLOW PILLS WITH WATER, BUT IS NPO FOR NOW. IS NOW RESTING COMFORTABLY, HR 120'S, BP 90'S/50'S WITH MAP > 65; O2 DECREASED TO 5 L/MIN WITH O2 SAT 90% (HAS HX OF CO2 RETENTION).
--- NOTE | 2019-04-29 20:03 | NUR ---
ASSUMPTION OF CARE ASSUMED CARE OF PT AT 1900, PT RESTING IN BED, HOME VENT PER TRACH SET TO 16/500/5/5L O2 FLOW IN, LS COARSE T/O DIMINISHED IN THE BASES, PT TACHYPNEIC WITH RR OF 20-25, O2 SATURATIONS 90-93%, LARGE AMOUNT OF THICK EMERSON SPUTUM SUCTIONED FROM TRACH. MONITOR SHOWS SINUS TACH, RATE 105-120'S. PT A&O x3, UNSURE OF DATE. BOWEL TONES NORMAL, UNSURE OF LAST BM. PER REPORT FROM JOHN PELAYO, PT CONTINENT OF URINE, HX OF STRESS INCONTINENCE. PERIPHERAL IVx2, LA IV INFUSING NS @ 75ml/hr.
--- NOTE | 2019-04-29 20:54 | NUR ---
CALL TO DR PARK, NOTIFIED MED REC WAS UPDATED, NO NEW ORDERS AT THIS TIME.
[2019-04-30 00:30] LABS: Adenovirus Not Detected (NOT DETECT); Bordetella pertussis Not Detected (NOT DETECT); Chlamydophila pneumoniae Not Detected (NOT DETECT); Coronavirus 229E Not Detected (NOT DETECT); Coronavirus HKU1 Not Detected (NOT DETECT); Coronavirus NL63 Not Detected (NOT DETECT); Coronavirus OC43 Not Detected (NOT DETECT); Human Metapneumovirus Not Detected (NOT DETECT); Human Rhinovirus/Enterovirus Not Detected (NOT DETECT); Influenza A Not Detected (NOT DETECT); Influenza A/2009-H1 Not Detected (NOT DETECT); Influenza A/H1 Not Detected (NOT DETECT); Influenza A/H3 Not Detected (NOT DETECT); Influenza B Not Detected (NOT DETECT); Mycoplasma pneumoniae Not Detected (NOT DETECT); Parainfluenza Virus 1 Not Detected (NOT DETECT); Parainfluenza Virus 2 Not Detected (NOT DETECT); Parainfluenza Virus 3 Not Detected (NOT DETECT); Parainfluenza Virus 4 Not Detected (NOT DETECT); Respiratory Syncytial Virus Not Detected (NOT DETECT)
[2019-04-30 03:43] LABS: BASOPHILS ABSOLUTE AUTO 0.03 K/mm3 (0.00-0.23); BASOPHILS PERCENT AUTO 0 % (0-2); EOSINOPHILS PERCENT AUTO 0 % (0-6); Hemoglobin 8.9 g/dL (11.5-16.0); IMMATURE GRAN ABSOLUTE AUTO 0.06 K/mm3 (0.00-0.10); IMMATURE GRAN PERCENT AUTO 0 % (0-1); LYMPHOCYTES ABSOLUTE AUTO 0.51 K/mm3 (0.84-5.20); LYMPHOCYTES PERCENT AUTO 3 % (21-46); MONOCYTES ABSOLUTE AUTO 0.25 K/mm3 (0.16-1.47); MONOCYTES PERCENT AUTO 2 % (4-13); Mean Corpuscular HGB Conc 29.7 g/dL (31.5-36.5); Mean Corpuscular Volume 88 fL (80-100); Mean Platelet Volume 11.5 fL (9.1-12.4); NEUTROPHILS ABSOLUTE AUTO 14.17 K/mm3 (1.96-9.15); NEUTROPHILS PERCENT AUTO 94 % (41-73); Platelet Count 258 K/mm3 (150-400); RDW Coefficient Variation 15.5 % (11.7-14.2); RDW Standard Deviation 50.2 fL (35.1-46.3); Red Blood Cell Count 3.42 M/mm3 (3.80-5.20); White Blood Cell Count 15.02 K/mm3 (4.00-11.30)
[2019-04-30 04:04] LABS: Alanine Aminotransfer (ALT/SGP 12 U/L (12-78); Albumin, Blood 2.2 g/dL (3.4-5.0); Albumin/Globulin Ratio 0.6 (0.8-1.8); Alk Phos 91 U/L (50-136); Anion Gap 6 mmol/L (6-16); Aspartate Aminotrans (AST/SGOT 8 U/L (12-37); Bilirubin, Total 0.4 mg/dL (0.1-1.0); Blood Urea Nitrogen 17 mg/dL (8-24); CO2, Blood 29 mmol/L (21-32); Calcium, Blood 8.9 mg/dL (8.5-10.1); Chloride, Blood 110 mmol/L (98-108); Creatinine, Blood 0.71 mg/dL (0.40-1.00); Glomerular Filtration Rate >60 (60-); Glucose, Blood 150 mg/dL (70-99); Magnesium, Blood 1.7 mg/dL (1.6-2.4); Potassium, Blood 3.9 mmol/L (3.5-5.5); Sodium, Blood 145 mmol/L (136-145); Total Protein, Blood 6.2 g/dL (6.4-8.2)
--- NOTE | 2019-04-30 07:31 | NUR ---
ASSUMED CARE REPORT FROM PIERCE DONNELLY. PATIENT REQUESTED PAIN MED FOR DAS. TYLENOL OFFERED AND REFUSED. PATIENT COMMUNICATES BY MOUTHING WORDS. WHEN ASKED ABOUT HER PAIN MEDS AT HOME, SHE IS VERY EMPHATIC THAT SHE HAS NOT BEEN TAKING HER NORCO. ASKED FOR "PAIN SHOT" FOR HER DAS. COOL CLOTH PROVIDED OVER HER EYES AND LIGHTS TURNED OFF UNTIL MD CAN BE CONTACTED. AFEBRILE, ON HOME VENT, HR 73. BIOX 95% BP STABLE.
--- NOTE | 2019-04-30 07:43 | NUR ---
SHIFT SUMMARY PT REMAINED STABLE T/O SHIFT, VS IMPROVED, HR 70'S-80'S, BP MAP>65, RR 16-18, PT AROUSABLE WITH NURSING CARE, A&O x4. TRILOGY VENT SET TO 16/500/5/5L O2 IN FLOW. LS REMAIN COARSE, OCCASSIONAL WHEEZE, OVERALL IMPROVED FROM BEGINNING OF SHIFT. MONITOR SHOWS NSR, SBP 120'S. PT SLEPT T/O SHIFT, COMPLAINS OF PAIN WHILE AWAKE, ONE TIME DOSE OF NORCO HELPED WITH PAIN. LITTLE URINE OUTPUT THIS SHIFT, INCONTINENT OF URINE, ATTENDS IN PLACE CHANGED X2 THIS SHIFT.
--- NOTE | 2019-04-30 08:01 | NUR ---
NOTIFIED DR. DRAKE OF PT REQUEST FOR PAIN MED FOR DAS
--- NOTE | 2019-04-30 08:14 | NUR ---
MD VISIT DR. DRAKE IN. ORDER FOR ONE TIME DOSE OF 0.5 DILAUDID FOR DAS AND TRANSFER TO PCU STATUS
--- NOTE | 2019-04-30 11:53 | NUR ---
PATIENT C/O BEING ANXIOUS AFTER RT VISIT. SHE IS REQ ATIVAN "SHOT" DR. DRAKE CONSULTED AND REC ORDER FOR 0.5 MG ATIVAN
--- NOTE | 2019-04-30 12:30 | NUR ---
PATIENT REQUESTED MORE ATIVAN. THEN SHE REQUESTED CATHETER BECAUSE SHE COULDN'T MOVE. ADVISED IT WAS NOT TIME FOR ATIVAN AGAIN AND WOULD PROVIDE A BEDPAN. REFUSED BEDPAN. SHE HAS ATTENDS ON.
--- NOTE | 2019-04-30 14:25 | NUR ---
PATIENT ASKING TO HAVE O2 TURNED UP AND MORE ATIVAN. HR TO 150. CONSULTED DR. DRAKE. ATIVAN INCREASED TO 1-2 MG IV Q4 PRN.
--- NOTE | 2019-04-30 16:25 | NUR ---
PT REQUESTING "DILAUDID" FOR BACK PAIN, STS THAT SHE TAKE OXYCODONE AT HOME FOR PAIN STS "IT DON'T WORK" PT EDCUATED THAT THERE IS NO DILAUDID RODERED FOR HER VISIT, EDUCATED FURTHER THAT MD WILL NEED TO BE CALLED FOR HER REQUEST. PT NOT LONG AGO WAS REQUESTING ATIVAN STATING SHE HAD NOT RECIEVED ANY AND WAS EDUCATED THAT SHE HAD BEEN GIVEN ATIVAN X2 HOURS AGO IN ICU
--- NOTE | 2019-04-30 16:33 | NUR ---
PT NOW STS THAT THE ONLY THING THAT WILL HELP WITH NEW ONSET OF "NOT BREATHING" IS "DILAUDID" WILL CALL
--- NOTE | 2019-04-30 16:41 | NUR ---
DR DRAKE CALLED AT THIS TIME AND ALERTED TO REQUEST FOR IV DILAUDID SHE STS THAT SHE NEEDS IT FOR HER "BACK PAIN AND TO HELP BREATHING" . NEW TELEPHONE ORDER OBTAINED TO RESTART PT'S HOME DOSE OF OCYCODONE
--- NOTE | 2019-04-30 16:44 | NUR ---
CORRECTION PT TAKES HYDROCODONE AT HOME NOT OXYCODONE
--- NOTE | 2019-04-30 17:23 | NUR ---
PT MEDICATED PER ORDERS, PT STS "YOU GUYS ARE GOING TO LET ME " PT ASKED WHY SHE FEELS THAT SHE IS GOING TO STS "BECAUSE YOU WON'T HELP ME BRATHE" PT ASKED WHAT SHE REQUIRES TO HELP HER BREATHE PT STS "THAT'S WHAT THE ATIVAN AND DILAUDID ARE FOR" PT IS EDUCATED THAT ATIVAN IS DUE IN APPROX 1 HR, THAT IT CAN NOT BE GIVEN EARLY, AND THAT DR DRAKE WAS SPECIFIC WITH HIS ORDERS TO RESUME HOME PAIN MEDICATION DOSE THAT NO IV MEDICATIONS WILL BE GIVEN AT THIS TIME FOR PAIN. PT EXPRESSED ANNOYANCE. PT REASSURED THAT ONCE ATIVAN IS DUE IT WILL BE BROUGHT TO HER. OFFERED TO ASSIST PT TO CHAIR STAFF HAS REPORTED THAT REPOSITIONING TO CHAIR HAS HELPED HER IN THE PAST, PT REFUSED
--- NOTE | 2019-04-30 17:41 | NUR ---
[facility] NOTE PT HAS COMPLAINED FOR 10/10 PAIN SINCE ARRIVING TO UNIT, STS THAT SHE IS NOT ABLE TO BREATHE. ALSO STS THAT PAIN OR INABILITY TO BREATHE ARE NEW STATING THAT THEY BEGAN YESTERDAY. PT ALERT, SHOUTING AND CURSING AT RT WHEN RT ENTERS ROOM. PT DOES NOT APPEAR TO BE IN WORSENING RESPIRATORY DISTRESS STATED, PT DOES HOWEVER GET UP TO BEDSIDE ACTING IF SHE IS ATTEMPTING TO EXIT BED AND IS VERBALLY REDIRECTD BY FATHER TO REMAIN IN BED WHICH PT COMPLIES WITH FATHER'S REQUEST
--- NOTE | 2019-04-30 23:29 | NUR ---
PATIENT IS WET, BEDCLOTHES ARE WET, PATIENT IS TRYING TO REFUSE CARE. REFUSES ORAL MOUTHWASH SCHEDULED FOR THIS TIME. ASKS FOR A FEW MINUTES TO CATCH HER BREATH. WILL RETURN IN 5-10
--- NOTE | 2019-05-01 08:00 | NUR ---
REPORT REC'D PT LYING ON LEFT SIDE. HOME VENT IN PLACE WITH O2 BLEED IN. ASSESSMENT NOTED. REQUESTING ATIVAN. INCONT BREIFS IN PLACE. IVF INFUSING. IV PATENT. CALL LIGTH IN REACH.
--- NOTE | 2019-05-01 08:12 | NUR ---
SHIFT SUMMARY ASSUMED CARE OF PATIENT AT 1900, PATIENT LYING ON SIDE IN BED, FLAT AFFECT, EYES CLOSED. PATIENT AROUSES TO VOICE, BUT NOT MUCH. PATIENT EDUCATION WAS REINFORCED TO RATIONALE FOR MAINTAINING PAIN MEDICATION AND OXYGEN DELIVERY AT MD ORDERED LEVELS. PATIENT SHOWED ANXIETY ABOUT HER BREATHING STATUS, BUT ONLY RARELY DID SHE HAVE O2 SATURATION BELOW 88%. MOST OFTEN AT 92-93%, AND CONSISTENT EVEN DURING EPISODES OF ANXIETY. PATIENT WAS TREATED AND MEDICATED PER MD ORDER AND UNIT PROTOCOL. PATIENT WAS INCONTINENT OF BOTH URINE AND BOWEL AND INTIALLY REFUSED CARE, ASSUMABLY BECAUSE SHE WAS ANXIOUS ABOUT BEING ABLE TO BREATHE THROUGH IT. TRUE TO UNIT PROTOCOL, HOWEVER, PATIENT WAS KEPT DRY AND CLEAN; ALL SOILED PRODUCTS AND LINENS REMOVED, SKIN CLEANED, PATIENT EDUCATED AND COUNSELED TO PARTICIPATE TO THE BEST OF HER ABILITY. PASSED CARE AND REPORT TO ONCOMING SHIFT AT 0700, PATIENT LYING ON SIDE, EYES CLOSED, BREATHING WITHOUT EFFORT, CALL LIGHT W/IN REACH
--- NOTE | 2019-05-01 19:25 | NUR ---
PT SLEEPING. REPORT GIVEN TO FRANCISCA. PT REQUESTED IV PAIN MEDICATION EVERY TIME SHE BECAME SHORT OF BREATH. PT REFUSED TO BE CHANGED T/O THE DAY. THE STILL CLEANER TUBE AND I FINALLY JUST STARTED CHANGING HER. SHE DID NOT HAVE TO EXERT ANY EFFORT. WE ROLLED HER ONTO HER BACK FOR WHICH TOOK LESS THAN A MINUTE. PT INSISTED WE "BAG HER" SEVERAL TIMES T/O THE DAY WHENEVER SHE DESATTED. PT HAS VERY POOR COPING SKILLS. HER FOCUS HAS BEEN ON "IV PAIN MEDS" NUMEROUS TIMES TODAY. SCAR Johnson IN RT WAS EXTREMELY ATTENTIVE, AVAILABLE AND SUPPORTIVE WHEN PT WAS EXPERIENCING DISTRESS WHETHER IS WAS SELF INFLICTED OR REAL. WHEN PT WAS FINALLY CHANGED FOR INCONTINENCE, ENTIRE BEDDING WAS CHANGED AND A PUDDLE OF URINE WAS IN THE BED. SKIN WAS CLEAR, SCARS BUT NO NEW SORES. PT RESTING QUIETLY AT THIS TIME. FATHR AT BEDSIDE. RT TO ROOM. CALL LIGHT IN REACH.
--- NOTE | 2019-05-02 03:17 | NUR ---
Refusing care called to patient room where patient is found to have wet linens do to urinary incontinence. offered to change linens and offered to assist with toileting. Patient continues to refuse care at this time, and allow staff to clean soiled linens or change soiled briefs. RN notified.
--- NOTE | 2019-05-02 07:52 | NUR ---
END OF SHIFT SUMMARY PT HAS BEEN VERY DEFIANT AND REFUSIVE OF CARE AND HAS DISPLAYED MANIPULATIVE BEHAVIOR TO STAFF MEMBERS. PT IS AXO. LUNGS ARE CLEAR T/O / DIM. BP STAble, VSS. PT HAS BEEN REFUSING BEING CLEANED SINCE AFTERNOON DAY SHIFT. EVERY TIME STAFF HAS GONE INTO ROOM, CLEANING HAS BEEN OFFERED TO WHICH PT HAS DENIED AND REFUSED DESPITE BEING SOAKED IN URINE. PT CONSTANTLY STATES "NOT BEING ABLE TO BREATHE". THIS RN WOULD GO IN TO ASSESS AND LUNG SOUNDS CLEAR, SPO2>95%, PT WOULD DENY SUCTIONING, WHEN ASKED IF SHE WANTED AN RT TO COME AND ASSESS/ADMINISTER AN RT TREATMENT PT WOULD REFUSE. WHEN ASKED WHAT THIS RN COULD DO TO HELP, THE PATIENT WOULD ALWAYS SAY "I NEED ATIVAN". ORDERS ARE VERY CLEAR THAT ATIVAN AND PAIN MEDICATIONS WERE TO STAY ORDERED AND TO NOT CALL REGAQrding this matter. PT OULD BE TOLD THIS AND THEN WOULD START PRESENTING ANXIOUS. WHEN NOT IN ROOM, PT THROWS CALL LIGHT TO GROUND, THROWS FAN ACROSS ROOM, PT WILL EVEN DISCONNECT SPO2 MONITOR AND DISCONNECT VENT FROM TRACH TO MAKE STAFF COME INTO ROOM. DESPITE SP02 >95 %, PT DEMANDS TO BE "BAGGHED" AND DEMANDS 02 NASALLY AND INCREAQSED BLEED IN. DEMAQNDS ATIVAN. THESE ALL HAVE BEEN DENIED AND ORDERS FOR MEDICATIONS HAVE BEEN FOLLOWED. TO TRY AND MANIPULATE STAFF TO DO THIS, PT WILL STATE NEEDING O2 AND WHEN DENIED, WILL PULL VENT OFF TRACH AND HOLD IT IN HAND UNTIL SHE ACTUALLY DESATS INTO 70'S TO WHICH STAFF HAVE GRABBED IT OUT OF HER HAND AND PLACED IT BACK. PT RREGAINS SATS >95% QUICKLY. PT HAS DENIED OTHER MEDICATIONS IN EMAR. STATES SHE IS GOING TO REPORT CHARGE NURSE FOR REFUSING MEDICATYIONS. AT ONE POINT, NURSING SHIRT TRIMMER ROSA CALLED REGARDING PATIENTS BEHAVIOR. PT HAS DENIED REPOSITIONING WELL. THIS RN HAS BEEN IN CONSTANT CONTACT WITH RT. PT APPEARS TO SOMETIMES HOLD BREATH TO DESAT AND CAUSE PRESSURE PEAKS IN HOME VENT. WHEN CONFRONTED ABOUIT THIS PT BECOMES DEFENSIVE. STAFF HAVE TRIED TO ACCOMMODATE PT'S NEEDS BUT PT CONTINUES TO BE VERY UNCOOPERATIVE AND IS FIXATED ON HAVING ATIVAN/IV PAIN MEDICATIONS. REPORT GIVEN TO ONCOMING RN.
--- NOTE | 2019-05-02 13:05 | NUR ---
RECEIVED BRIEF TELEPHONE REPORT FROM PIERCE PALMA, PCU, ON DAIJA LOCKETT, WILL HAVE IN DEPTH BEDSIDE REPORT WHEN PATIENT IS TRANSFERRED.
--- NOTE | 2019-05-02 13:19 | NUR ---
PATIENT ARRIVED IN ROOM ICU 14 FROM PCU 11 AT 1319, PATIENT WAS BAGGED MANUALLY BY FRANCISCO BANEGAS, RT, THEN PLACED ON VENT IN ROOM, PATIENT HAS A TRACH, PLACED IN RESTRAINTS D/T PATIENT PULLING OFF TRACH/VENT CONNECTION, LAB IN TO DRAW ORDERED BLOOD SAMPLES, ATTEMPTED TO CALL DR. COREAS, HOSPITALIST FOLLOWING THIS PATIENT, LEFT MESSAGE, DR. SOLIS WAS CONSULTED BUT HAS NOT SEEN THE PATIENT YET, PATIENT APPEARS EXTREMELY ANXIOUS WITH ELEVATED BLOOD PRESSURE AND HR IN 120'S, VENT SETTINGS ARE 16/5/500 Vt/FiO2 60 %, DR. COREAS CALLED BACK AND ORDER FOR RESTRAINTS AND ZENDEJAS CATHETER PLACED, PATIENT'S FATHER AT BEDSIDE, CALL LIGHT IN REACH, WILL CONTINUE TO MONITOR.
--- NOTE | 2019-05-02 13:51 | NUR ---
NOTE PT HAS BEEN REFUSING ADL CARE. HER BED, GOWN AND LINENES ARE SATURATED WITH URINE. SHE IS SHAKING FROM BEING COLD AND WET. TALKED WITH PT. DECIDED TO CLEAN HER UP AFTER HER 1230 ATIVAN DOSE. AT 1130 SHE STARTS GETTING ANXIOUS. BREATHING TREATMENT GIVEN X1. ATIVAN 2MG GIVEN X1 AT 1215. PT CONTINUES TO ESCALATE. SHE DEMANDS TO BE MANUALLY BAGGRD. HER DAD TRIED TO TALK HER DOWN. HR 160+. NOT ON TELE. HAD CALLED A CONSULT TO DR SOLIS PER ORDER EARLIER. STARTED TO MANUALLY BAG PT AT 3L. SAT 99%. WITH BAGGING HER HR DROP INTO THE 90-100 RANGE. WHEN R/T WOULD CHANGE HR BACK TO HER HOME VENT SHE WOULD IMMEDIATELY PANIC AND HER HR WOULD SHOOT TO 160+. CALLED DR SOLIS. ORDERS RECEIVED TO TRANSFER BACK TO ICU AND CHANGE TO THE HOUSE VENT. PT REPORT CALLED TO ICU. PT TRANSFERED TO ICU 14 WHILE BEING MANUALLY BAGGED. PT DAD AWARE OF TRANSFER. CONTINUE POT. TO
--- NOTE | 2019-05-02 14:33 | NUR ---
DR. SOLIS IN TO SEE PATIENT, NO NEW ORDERS RECEIVED, PATIENT MAY EAT AND DRINK, DR. SOLIS DOES NOT WANT ZENDEJAS CATHETER PLACED, AGREED WITH RESTRAINTS, FATHER AT BEDSIDE, PATIENT AND FATHER BOTH SLEEPING AT THIS TIME, CALL LIGHT IN REACH, WILL CONTINUE TO MONITOR.
[2019-05-02 15:32] LABS: BASOPHILS ABSOLUTE AUTO 0.01 K/mm3 (0.00-0.23); BASOPHILS PERCENT AUTO 0 % (0-2); EOSINOPHILS PERCENT AUTO 0 % (0-6); Hemoglobin 10.5 g/dL (11.5-16.0); IMMATURE GRAN ABSOLUTE AUTO 0.09 K/mm3 (0.00-0.10); IMMATURE GRAN PERCENT AUTO 1 % (0-1); LYMPHOCYTES ABSOLUTE AUTO 0.36 K/mm3 (0.84-5.20); LYMPHOCYTES PERCENT AUTO 3 % (21-46); MONOCYTES ABSOLUTE AUTO 0.12 K/mm3 (0.16-1.47); MONOCYTES PERCENT AUTO 1 % (4-13); Mean Corpuscular HGB 26.3 pg (26.0-34.0); Mean Corpuscular Volume 88 fL (80-100); NEUTROPHILS ABSOLUTE AUTO 12.31 K/mm3 (1.96-9.15); NEUTROPHILS PERCENT AUTO 96 % (41-73); Platelet Count 282 K/mm3 (150-400); RDW Coefficient Variation 16.1 % (11.7-14.2); RDW Standard Deviation 52.1 fL (35.1-46.3); Red Blood Cell Count 3.99 M/mm3 (3.80-5.20); White Blood Cell Count 12.89 K/mm3 (4.00-11.30)
[2019-05-02 15:47] LABS: Albumin, Blood 2.4 g/dL (3.4-5.0); Anion Gap 8 mmol/L (6-16); Blood Urea Nitrogen 31 mg/dL (8-24); Bun/Creatinine Ratio 38.6 (12.0-20.0); CO2, Blood 28 mmol/L (21-32); Calcium, Blood 9.6 mg/dL (8.5-10.1); Chloride, Blood 109 mmol/L (98-108); Glomerular Filtration Rate >60 (60-); Glucose, Blood 86 mg/dL (70-99); Phosphorus, Blood 2.8 mg/dL (2.5-4.9); Potassium, Blood 4.2 mmol/L (3.5-5.5); Sodium, Blood 145 mmol/L (136-145)
[2019-05-02 16:14] LABS: PO2 Arterial 77.5 mmHg (80-100); pH Blood Arterial 7.37 (7.35-7.45)
--- NOTE | 2019-05-02 16:51 | NUR ---
PATIENT IS RESTING COMFORTABLY, CONTINUES ON HOSPITAL VENT, FAMILY AT BEDSIDE, CALL LIGHT IN REACH, WILL CONTINUE TO MONITOR.
--- NOTE | 2019-05-02 17:39 | NUR ---
PATIENT CONTINUES TO ASK FOR PAIN MEDICATION, INSTRUCTED THAT SHE CAN HAVE SOME NORCO AT 18:30, RECEIVED 2 MG ATIVAN IV EARLIER, CALL LIGHT IN REACH, WILL CONTINUE TO MONITOR.
--- NOTE | 2019-05-02 17:44 | NUR ---
SHIFT SUMMARY REPORT: PATIENT WAS BROUGHT TO ICU FROM PCU WITH APPARENT EXTREME ANXIETY, RT WAS BAGGING PATIENT DURING TRANSPORT, PLACED ON HOSPITAL VENT, SETTINGS AT THIS TIME ARE 16/5/500Vt/FiO2M 30 %, PATIENT IS MOSTLY SLEEPING, PATIENT WAS BRIEFLY IN RESTRAINTS D/T PULLING TRACH TUBE, AGREED TO LEAVE TUBING ALONE, RESTRAINTS REMOVED AND D/C'D, PER DR. SOLIS MAY EAT AND DRINK, IS ON A REGULAR DIET, ATTENDS IN PLACE, PATIENT REFUSED TO HAVE ATTENDS CHANGED AND REMOVED IN PCU EARLIER TODAY BUT IS NOW AGREEABLE, CONTINUES TO ASK FOR PAIN MEDICATION AND ATIVAN, PATIENT IS AFEBRILE, VSS, FOR DETAILS SEE SHIFT ASSESSMENT DOCUMENTATION AND NURSES NOTES, CALL LIGHT IN REACH, WILL CONTINUE TO MONITOR AND GIVE REPORT TO ONCOMING TRADE ECONOMIST.
--- NOTE | 2019-05-02 19:15 | NUR ---
ASSUMED CARE OF PT, BEDSIDE REPORT RECEIVED. PT RESTING QUIETLY RECLINING IN BED, APPEARS TO BE SLEEPING, ROUSES TO VERBAL STIMULI HOWEVER EYES CLOSE AND PT APPEARS TO RETURN TO SLEEP WITHIN 60 SECONDS. LUNGS ARE CLEAR BILAT UPPER, DIM MID TO BASES. TRACH COLLAR NOTED IN PLACE, HOSPITAL VENT SETTINGS AC 16, TV 500, PEEP 5.0, FIO2 30%, PT RESP RATE LOW 20S, SATS MID 90S WITH CURRENT SETTINGS, NO INCREASED WORK OF BREATHING IS NOTED AT THIS TIME, FACIAL EXPRESSION IS RELAXED, NO GRIMACING. HRR, SINUS RHYTHM, RATE 70S, PRESSURE MAINTAINING, PULSES FULL X 4 EXTREMITIES, SKIN PWN, BRISK CAP REFILL. ABD, SOFT, ACTIVE BOWEL TONES X 4. ATTENDS IN PLACE, DRY AT THIS TIME. EXTENDED DWELL TO LEFT UPPER ARM SL AT THIS TIME, DRESSING CDI.
--- NOTE | 2019-05-03 | NUR ---
PT CALLED THIS RN TO ROOM AND MOUTHS WORDS REQUESTING ATIVAN AND NORCO, DISCUSSED NEXT AVAILABLE DOSES OUTLINED ON THE PT'S COMMUNICATION BOARD AT 0030 FOR BOTH ATIVAN AND NORCO. PT MOUTHS "I CAN'T BREATH" PT RESP RATE NOTED HIGH 20S TO LOW 30S, SATS 99% WITH VENT SETTINGS UNCHANGED. DISCUSSED CURRENT RESPIRATORY STATUS WITH PT, SHE IS NOTED TO HOLD HER BREATH AT THIS TIME UNTIL VENT ALARM SOUNDS AND THEN RESUMES BREATHING.
--- NOTE | 2019-05-03 00:30 | NUR ---
AT 0024 PT IS NOTED TO HAVE RESP RATE OF 40S, SATS MID 90S, HEART RATE 140-150S, REQUESTS ATIVAN AND NORCO "OR I'M GOING TO " TRACH CUFF ADJUSTED, COACHED PT ON BREATHING, HEART RATE IMPROVES TO 130S WITH STAFF AT BEDSIDE, ATIVAN AND NORCO ADMIN, PT'S HEART RATE IMPROVES TO LOW 120S, SHE MOUTHS "HOW LONG DOES IT TAKE TO WORK" DISCUSSED ONSET AND PEAK TIMES OF NORCO AND ATIVAN. PT REQUESTS INCREASED DOSE OF ATIVAN AT THIS TIME. PT REQUESTS CALL PLACED TO .
--- NOTE | 2019-05-03 00:45 | NUR ---
DR SOLIS PAGED REGARDING PT REQUEST FOR INCREASED ATIVAN DOSAGE, PT HEART RATE HAS RETURNED TO 140S, SATS 99% TIDAL VOLUMES NEAR 600, RESP RATE NEAR 40, PT MOUTHS "I'M GOING TO " PT IS INFORMED THAT CALL IS PLACED TO DR SOLIS TO REQUEST MEDICATION DOSAGE CHANGE. HEART RATE IS NOTED TO IMPROVE TO 120-130S AND RESP RATE TO LOW TO MID 30S.
--- NOTE | 2019-05-03 00:50 | NUR ---
SPOKE WITH DR SOLIS REGARDING PT REQUEST FOR INCREASED DOSE OF ATIVAN, HEART RATE, RESP RATE, AND PT REPORT OF "I'M GOING TO " ORDERS FOR PRECEDEX GTT RECEIVED. DR SOLIS DOES CLARIFY CURRENT ATIVAN ORDER OF 2 MG Q4H PRN AND STATES TO LEAVE THAT ORDER UNCHANGED. PT INFORMED OF ORDERS FOR PRECEDEX GTT AND THAT PHARMACY HAS TO SEND THE MEDICATION TO THE ICU. SHE MOUTHS "I CAN'T WAIT, I'M GOING TO " AND AGAIN REQUESTS MORE ATIVAN. DISCUSSED DR SOLIS'S ORDER TO SPECIFICALLY LEAVE ATIVAN ORDER UNCHANGED.
--- NOTE | 2019-05-03 01:15 | NUR ---
PRECEDEX ARRIVES FROM PHARMACY AND INITIATED, GTT VERIFIED WITH UNDER CUTTING MACHINE OPERATOR, WILL MONITOR.
[2019-05-03 03:39] LABS: BASOPHILS ABSOLUTE AUTO 0.01 K/mm3 (0.00-0.23); BASOPHILS PERCENT AUTO 0 % (0-2); EOSINOPHILS ABSOLUTE AUTO 0.01 K/mm3 (0.00-0.68); EOSINOPHILS PERCENT AUTO 0 % (0-6); Hematocrit 31.9 % (33.0-51.0); Hemoglobin 9.7 g/dL (11.5-16.0); IMMATURE GRAN ABSOLUTE AUTO 0.06 K/mm3 (0.00-0.10); IMMATURE GRAN PERCENT AUTO 1 % (0-1); LYMPHOCYTES ABSOLUTE AUTO 0.93 K/mm3 (0.84-5.20); LYMPHOCYTES PERCENT AUTO 9 % (21-46); MONOCYTES ABSOLUTE AUTO 0.45 K/mm3 (0.16-1.47); MONOCYTES PERCENT AUTO 4 % (4-13); Mean Corpuscular HGB 26.4 pg (26.0-34.0); Mean Corpuscular HGB Conc 30.4 g/dL (31.5-36.5); Mean Corpuscular Volume 87 fL (80-100); Mean Platelet Volume 10.7 fL (9.1-12.4); NEUTROPHILS ABSOLUTE AUTO 9.53 K/mm3 (1.96-9.15); NEUTROPHILS PERCENT AUTO 87 % (41-73); Platelet Count 250 K/mm3 (150-400); RDW Standard Deviation 50.7 fL (35.1-46.3); Red Blood Cell Count 3.68 M/mm3 (3.80-5.20); White Blood Cell Count 10.99 K/mm3 (4.00-11.30)
[2019-05-03 03:54] LABS: Albumin, Blood 2.3 g/dL (3.4-5.0); Anion Gap 7 mmol/L (6-16); Blood Urea Nitrogen 37 mg/dL (8-24); Bun/Creatinine Ratio 43.4 (12.0-20.0); CO2, Blood 30 mmol/L (21-32); Calcium, Blood 9.5 mg/dL (8.5-10.1); Chloride, Blood 107 mmol/L (98-108); Creatinine, Blood 0.85 mg/dL (0.40-1.00); Glomerular Filtration Rate >60 (60-); Glucose, Blood 76 mg/dL (70-99); Phosphorus, Blood 2.8 mg/dL (2.5-4.9); Potassium, Blood 4.1 mmol/L (3.5-5.5); Sodium, Blood 144 mmol/L (136-145)
--- NOTE | 2019-05-03 06:35 | NUR ---
PT RESTING QUIETLY AT THIS TIME, ATIVAN 2 MG IV ADMIN AT 2030 AND 0030, PT COMPLAINED OF HIGH LEVELS OF ANXIETY CONTINUING AFTER 0030 DOSE AT WHICH TIME SHE MOUTHED THE WORDS "I'M GOING TO " IF THIS RN DID NOT PROVIDE AND EXTRA DOSE OF ATIVAN, DR SOLIS WAS CONTACTED REGARDING PT REQUEST, PRECEDEX GTT WAS ORDERED AND INITIATED, PRECEDEX GTT CURRENTLY AT 0.2 MCG/KG/HR, PT HAS BEEN AROUSABLE EASILY TO VERBAL STIMULI SINCE INITIATION OF PRECEDEX GTT, PRESSURES HAVE BEEN MAINTAINING WELL, HEART RATE DID INCREASE TO 150 WITH PERIOD OF REPORTED HIGH LEVEL OF ANXIETY HOWEVER PRIOR TO PRECEDEX INITIATION HEART RATE WAS NOTED 70S WITH REST, OF THIS TIME, HEART RATE IS MID 50S. LUNGS CONTINUE DIM THROUGHOUT, SATS MAINTAINING HIGH 90S, RESP RATE HIGH TEENS LOW 20S AND TIDAL VOLUMES NEAR 500 ML. OF THIS AM PT NODS HEAD YES WHEN ASKED IF SHE IS COMFORTABLE.
--- NOTE | 2019-05-03 07:15 | NUR ---
START OF SHIFT NOTE: RECEIVED REPORT FROM PIERCE FOWLER, ASSUMED CARE, PATIENT IS SLEEPING ON LEFT SIDE BUT AROUSEABLE, ON PRECEDEX GTT AT 0.2 MCG AT THIS TIME, ALERT AND ORIENTED, ON MECHANICAL VENTILATION VIA HER TRACH SETTINGS ARE 16/5/500/FiO2 30 %, SATING AT 96 %, LUNG SOUNDS DIMINISHED, BOWEL TONES HYPOACTIVE, PATIENT HAS ATTENDS ON, COMPLIANT AND COOPERATIVE WITH ORAL CARE AND ATTENDS CHANGE AT THIS TIME, CALL LIGHT IN REACH, WILL CONTINUE TO MONITOR.
--- NOTE | 2019-05-03 08:24 | NUR ---
PATIENT AWAKE AND BANGING ON SIDE RAIL, ASKING FOR ATIVAN AND NORCO, APPEARS TO BE IN RESPIRATORY DISTRESS BUT ALSO HAS O2 SATS OF 99 %, PATIENT IS TRYING TO DISCONNECT HER TRACH TUBING, TOLD TO NOT TOUCH IT, SUCTIONED, NO SECRETIONS NOTED, RT CALLED, DR. SOLIS AWARE, PATIENT RECEIVED 2 MG ATIVAN AND NORCO, DR. SOLIS IN TO SEE PATIENT, ORDERED PROPOFOL TO PUT PATIENT ASLEEP.
--- NOTE | 2019-05-03 10:37 | NUR ---
PER DR. SOLIS, PRECEDEX AT 0.7 MCG AT THIS TIME, PATIENT APPEARS TO BE CALMER, FATHER AT BEDSIDE, HOWEVER, WAS ASKING FOR MORE ATIVAN AND NORCO AT 1030 AGAIN, INSTRUCTED THAT SHE MAY HAVE MORE AROUND NOON, ALSO IF ABOVE MENTIONED MEDICATIONS WILL NOT REDUCE ANXIETY DR. SOLIS ORDERED PROPOFOL A LAST RESORT.
--- NOTE | 2019-05-03 12:35 | NUR ---
PATIENT IS RESTING COMFORTABLY WITH FAMILY MEMBERS AT BEDSIDE, PATIENT WAS AWOKEN TO ADMINISTER ORDERED PAXIL AND LUNCH, PATIENT ADAMENTLY REFUSED TO EAT LUNCH BUT TOOK PAXIL AND IMMEDIATELY ASKED FOR ATIVAN, 2 MG IV GIVEN ORDERED, CALL LIGHT IN REACH, WILL CONTINUE TO MONITOR.
--- NOTE | 2019-05-03 13:56 | NUR ---
PATIENT HEALTH SAFETY ENGINEER LIGHT, STATED THAT "ROOM IS TOO HOT", THERMOSTAT LOWERED AND BEDSIDE FAN PLACED, PATIENT ALSO ASKED FOR MORE ATIVAN, WAS INSTRUCTED THAT SHE COULD NOT HAVE MORE ATIVAN UNTIL AFTER 1600 HOURS, BUT WOULD BE ABLE TO GET A NORCO AT ABOUT 1430 HOURS, PATIENT VERBALIZED UNDERSTANDING, FATHER AT BEDSIDE, CALL LIGHT IN REACH, WILL CONTINUE TO MONITOR.
--- NOTE | 2019-05-03 15:13 | NUR ---
SILVIA FRIED DIRECTOR OF CONVENTION SERVICES IN TO CHECK OUT PATIENT'S HOME VENT, VENT WORKS FINE AND THERE IS NOTHING WRONG WITH IT PER SILVIA FRIED, HOME SETTINGS ARE SLIGHTLY DIFFERENT THAN HOSPITAL VENT, BUT WERE LEFT SET FOR NOW, SILVIA FRIED WILL ADJUST WHEN NEEDED.
--- NOTE | 2019-05-03 17:55 | NUR ---
SHIFT SUMMARY NOTE: NO ACUTE EVENTS, PATIENT BECAME EXTREMELY ANXIOUS THIS AM WHEN ASKING FOR MORE ATIVAN AND MEDICATIONS, TRIED TO DISCONNECT TRACH FROM VENT, CONTINUES ON HOSPITAL VENT, SETTINGS 21/09//30 %, DR. SOLIS IN, EXPLAINED TO PATIENT THAT SHE CANNOT HAVE MORE ATIVAN OR NORCO, PRECEDEX INCREASED TO MAX OF 0.7 MCG, ALSO PROPOFOL AVAILABLE IF NEEDED, HOWEVER, PATIENT APPEARS TO HAVE CALMED DOWN, AND DID NOT HAVE ANOTHER ANXIETY PERIOD, RECEIVED ATIVAN THREE TIMES TODAY WELL NORCO TWICE, SLEPT MOST OF THE DAY, REFUSED BREAKFAST, LUNCH, AND DINNER, DRINKS WATER OCCASIONALLY, DIETARY WAS IN TO SPEAK WITH PATIENT, FAMILY AT BEDSIDE, FOR DETAILS SEE SHIFT ASSESSMENT DOCUMENTATION AND NURSES NOTES, CALL LIGHT IN REACH, WILL CONTINUE TO MONITOR.
--- NOTE | 2019-05-03 19:15 | NUR ---
ASSUMED CARE OF PT, SHE IS NOTED RESTING QUIETLY AT THIS TIME LYING ON LEFT SIDE IN BED, FATHER AT BEDSIDE. PRECEDEX GTT NOTED AT 0.7 MCG/KG/HR AT THIS TIME, SATS MID 90S, HEART RATE 70S, SINUS RHYTHM, HOSPITAL VENT, ON SPONTANEOUS, RATE HIGH TEENS LOW 20S. PT AROUSES AND REQUESTS TO KNOW WHEN NEXT PAIN MEDICATION AND ATIVAN ARE AVAILABLE, NODS HEAD WHEN TIMES EXPLAINED. WILL MONITOR.
--- NOTE | 2019-05-03 20:30 | NUR ---
PT CONT RESTING QUIETLY, IS EASILY AROUSABLE TO VERBAL STIMULI AND DOES AROUSE SPONTANEOUSLY FREQUENTLY. USES CALL LIGHT APPROPRIATELY AT THIS TIME. SHE C/O FEELING ANXIOUS, ATIVAN ADMIN, PT TOLERATED WELL. LUNGS CLEAR BILAT UPPER LOBES, DIMIN BILAT BASES, DYSPNEA IS NOTED WITH INCREASES IN ACTIVITY. PT IS COMPLIANT WITH ASSESSMENT AND ORAL CARE AT THIS TIME, HOWEVER REFUSES TO REPOSITION, RISK OF SKIN BREAKDOWN DISCUSSED AND PT CONT TO DECLINE TO TURN, WILL CONT TO ENCOURAGE POSITION CHANGES. SHE DENIES NEED FOR ATTENDS CHANGE AT THIS TIME WELL. INQUIRES REGARDING THE NEXT AVAILABLE NORCO. PT REQUESTS FURTHER MEDICATIONS WHEN NEXT AVAILABLE TIME IS EXPLAINED. DISCUSSED THAT THERE ARE NO FURTHER PAIN MEDICATIONS ORDERED AT THIS TIME, AGAIN DISCUSSED POSITION CHANGE AND AGAIN DECLINED, ACCEPTS MATTRESS PRESSURE DECREASE PT REPORTS THAT SHE SLEEPS ON A SOFT MATRESS AT HOME, WARM BLANKETS PROVIDED, PT IS NOTED TO BE LISTENING TO POLITICAL DISCUSSION ON TV, SHE STATES THAT YES WHE WOULD LIKE THE CHANNEL CHANGED TO ANIMAL PLANET AT THIS TIME, WILL MONITOR.
[2019-05-04 05:16] LABS: BASOPHILS PERCENT AUTO 0 % (0-2); EOSINOPHILS ABSOLUTE AUTO 0.07 K/mm3 (0.00-0.68); EOSINOPHILS PERCENT AUTO 1 % (0-6); Hematocrit 32.9 % (33.0-51.0); IMMATURE GRAN ABSOLUTE AUTO 0.09 K/mm3 (0.00-0.10); IMMATURE GRAN PERCENT AUTO 1 % (0-1); LYMPHOCYTES PERCENT AUTO 10 % (21-46); MONOCYTES ABSOLUTE AUTO 0.51 K/mm3 (0.16-1.47); MONOCYTES PERCENT AUTO 5 % (4-13); Mean Corpuscular HGB 25.6 pg (26.0-34.0); Mean Corpuscular HGB Conc 30.4 g/dL (31.5-36.5); Mean Platelet Volume 10.9 fL (9.1-12.4); NEUTROPHILS ABSOLUTE AUTO 8.55 K/mm3 (1.96-9.15); NEUTROPHILS PERCENT AUTO 84 % (41-73); Platelet Count 237 K/mm3 (150-400); RDW Coefficient Variation 15.6 % (11.7-14.2); RDW Standard Deviation 47.6 fL (35.1-46.3); Red Blood Cell Count 3.91 M/mm3 (3.80-5.20); White Blood Cell Count 10.22 K/mm3 (4.00-11.30)
[2019-05-04 05:28] LABS: Mean Corpuscular Volume 84 fL (80-100)
[2019-05-04 05:43] LABS: Magnesium, Blood 1.7 mg/dL (1.6-2.4)
[2019-05-04 05:46] LABS: Anion Gap 11 mmol/L (6-16); Blood Urea Nitrogen 30 mg/dL (8-24); Bun/Creatinine Ratio 41.4 (12.0-20.0); CO2, Blood 28 mmol/L (21-32); Chloride, Blood 102 mmol/L (98-108); Creatinine, Blood 0.72 mg/dL (0.40-1.00); Glomerular Filtration Rate >60 (60-); Glucose, Blood 84 mg/dL (70-99); Phosphorus, Blood 2.2 mg/dL (2.5-4.9); Potassium, Blood 3.4 mmol/L (3.5-5.5); Sodium, Blood 141 mmol/L (136-145)
--- NOTE | 2019-05-04 05:55 | NUR ---
PT RESTS QUIETLY THROUGHOUT SHIFT, COMPLIANT WITH ORAL CARE AND TRACH CARE, REFUSED TURNS, STATES THIS AM THAT HER ATTENDS REMAIN DRY AND THAT SHE DOES NOT FEEL THE NEED TO VOID AT THIS TIME, PULLS BLANKETS UP TO CHIN AND APPEARS TO RETURN TO SLEEP. PRECEDEX CONTINUES INFUSING AT 0.7 MCG/KG/HR, PT REMAINS EASILY AROUSABLE TO VERBAL STIMULI AND INTERMITTENTLY SPONTANEOUSLY AROUSABLE, USES CALL LIGHT APPROPRIATELY THROUGHOUT SHIFT TO MAKE NEEDS KNOW. HAS REQUESTED ATIVAN FREQUENTLY WELL PAIN MEDICATION. HAS TOLERATED ORDERED INTERVAL FOR PRN MEDICATIONS. LUNGS REMAIN DIM MID TO BASES BILAT, SATS MID 90S, VENT REMAINS ON SPONT, TV 500, FIO2 30%, PEEP 10. LOW PO INTAKE HAS BEEN NOTED THROUGHOUT SHIFT, PT HAS BEEN ENCOURAGED TO IMPROVE PO INTAKE. PRESSURES MAINTAINING, TRACE GENERALIZED EDEMA IS NOTED, SINUS RHYTHM CONTINUS RATE 60-90S.
--- NOTE | 2019-05-04 07:45 | NUR ---
ASSUMED CARE RECEIVED REPORT FROM PIERCE CONTI. PT ON VENTILATOR VIA TRACH, SPONTANEOUS MODE, PEEP OF 10 WITH 30% FIO2. SHE IS LYING DOWN, ASLEEP. VITALS STABLE. BED IS LOW AND LOCKED.
--- NOTE | 2019-05-04 17:03 | NUR ---
UPDATE ALL DAY THIS PATIENT HAS BEEN STRUGGLING. SHE HAS BEEN COMPLAINING THAT SHE CAN'T BREATHE. ALTHOUGH, HER SAT'S ARE MID TO HIGH 90'S. HER RR IS 15-24, AND ALSO APPEARS TO BE IN NO RESPIRATORY DISTRESS. SHE HAS BEEN SUCTIONED AND ONLY SOMETIMES WILL WE GET ANY SECRETIONS. IT APPEARS TO BE ANXIETY RELATED. SHE HAS BEEN GETTING IV ATIVAN, WHICH HAS ONLY BEEN A SHORT TERM SOLUTION. MARIAN HAS SWITCHED HER TO PO VALIUM, INSTEAD OF IV ATIVAN. THE PT DID NOT LIKE THIS, AND HAS BEEN PANIC-ING EVER SINCE. ANOTHER DOSE OF ATIVAN WAS GIVEN, INCREASED FREQUENCY OF VALIUM DONE, A DOSE OF MORPHINE (SHE ALSO COMPLAINS OF PAIN THAT IS GENERAL, AND HAS BEEN ASKING FOR PAIN MEDS), AND EVEN HAVE INCREASED HER PRECEDEX DOSE TO 1.4MCG/KG/HR. CONSIDERATION INTO ALTERNATIVE WAYS TO TREAT HER ANXIETY MAY NEED TO BE DISCUSSED.
--- NOTE | 2019-05-04 19:18 | NUR ---
SHIFT SUMMARY PT IS CURRENTLY ON THE ICU'S VENTILATOR ON SPONTANEOUS MODE, PEEP 5, TV OF 400-500, FIO2 30%. AFTER THE LAST SWITCH FROM HER VENT TO THE ICU VENT - SHE HAS ALREADY SHOWN IMPROVEMENT. TODAY HAS BEEN A STRUGGLE FOR HER, HIGH ANXIETY AND PAIN, AND FEELINGS OF NOT BEING ABLE TO BREATHE. IV ATIVAN BEING DC'D, FOR PO DIAZEPAM WAS A BIG ISSUE FOR HER. MORPHINE DIDN'T SEEM TO HELP EITHER. CURRENTLY THE PLAN TO HELP HER IS PRECEDEX UP TO 1.4MCG/KG/HR, PROPOFOL (IF NEEDED), ATIVAN IV (REORDERED), DIAZEPAM PO, AND NORCO (HOME MED). SHE HAS HAD SEVERAL INCONTINENT VOIDS IN HER ATTENDS WHEN SHE FAILED TO NOTIFY US PRIOR. SHE REFUSED TO BE CLEANED UP FOR OVER AN HOUR WHEN SHE WAS UPSET ABOUT NOT RECEIVING IV ATIVAN. EVENTUALLY WE GOT HER CLEANED UP. SHE HAS BEEN A&O THE WHOLE DAY BUT AT THE END OF MY SHIFT, AFTER BEING SWITCHED BACK TO THE ICU VENT, AND HAVING HER INNER CANULA CHANGED, SHE ASKED "WHERE AM I?" AND "WHY AM I HERE?" WHICH WAS ODD, BECAUSE THIS WAS NOT NORMAL. OTHER THAN THAT SHE WAS DOING A LOT BETTER, VERY CALM. BED IS LOW AND LCOKED. VITALS STABLE. CALL LIGHT WITHIN REACH.
--- NOTE | 2019-05-04 21:38 | NUR ---
ASSUME CARE PT ALERT. DAD AT BEDSIDE. LUNGS CLEAR WITH DIMINISHED LOWER LOBES. PATIENT HR 60S. BP ELEVATED WITH SBP [id number]. AFEBRILE. PATIENT ON VENT 30% 02, VT 500. PRESSURE SUPPORT 12. PULSES STRONG THROUGHOUT. PATIENT ANXIOUS, BUT REDIRECTABLE. WILL COTNINUE TO MONITOR.
--- NOTE | 2019-05-05 03:08 | NUR ---
BP ISSUES PATIENT WITH SBP IN 180S, SUSTAINED. PATIENT ASYMPTOMATIC OTHERWISE. REDUCING SALON ATTENDANT NOTIFIED, AMLODIPINE ONE TIME ORDERED. LABETOLOL ORDERED FOR SBP ABOVE 190. NO OTHER ORDERS AT THIS TIME. WILL CONTINUE TO MONTIOR.
[2019-05-05 04:45] LABS: Albumin, Blood 2.4 g/dL (3.4-5.0); Anion Gap 8 mmol/L (6-16); Blood Urea Nitrogen 17 mg/dL (8-24); Bun/Creatinine Ratio 27.3 (12.0-20.0); CO2, Blood 33 mmol/L (21-32); Calcium, Blood 8.9 mg/dL (8.5-10.1); Chloride, Blood 102 mmol/L (98-108); Creatinine, Blood 0.62 mg/dL (0.40-1.00); Glomerular Filtration Rate >60 (60-); Glucose, Blood 100 mg/dL (70-99); Phosphorus, Blood 2.6 mg/dL (2.5-4.9); Potassium, Blood 3.9 mmol/L (3.5-5.5); Sodium, Blood 143 mmol/L (136-145)
--- NOTE | 2019-05-05 05:57 | NUR ---
SHIFT SUMMARY PATIENT REMAINS ON VC/AC VT 400/PEEP 5/ 40%/R 12. SINCE BEIGN CHANGED OVER, PATIENT SEEMS MORE COMFORTABLE, LESS ANXIOUS. PATIENT REQUESTED ATIVAN TWICE THROUGH SHIFT. PATIENT ON 1.4 PRECEDEX AND 20 PROPOFOL AND COMFORTABLE. PATIENT HYPERTENSION RESOLVED WITH ONE TIME DOSE OF AMLODIPINE. LEFT LUNG UPPER LOBE COARSE, RIGHT UPPER LOBE CLEAR, LOWER LOBES DIMINISHED. HYPOACTIVE BOWEL TONES. AFEBRILE THROUGH SHIFT. NO OTHER ISSUES OVERNIGHT. WILL CONTINUE TO MONITOR UNTIL REPORT GIVEN TO DAY SHIFT RN.
--- NOTE | 2019-05-05 08:08 | NUR ---
ASSUMED CARE: REPORT RECEIVED FROM NIRMALA Mai RN. ASSUMED CARE OF THIS PT AT APPROX 0700. ON ASSESSMENT, THE PT IS SEDATED W/ PRECEDEX & PROPOFOL, TITRATION IN FLOWSHEET. LS COARSE ON L SIDE, DIM ON R SIDE, PT ON HOSPITAL VENTILATOR W/ SETTINGS: AC 12, TV 400, PEEP 5 & FIO2 30%. TOLERATING WELL W/ O2 SATS > 90% ON AVG, OCCASIONAL DESATS TO 88% NOTED. MONITOR SHOWS SR W/ HR 80s, BP STABLE. ATTENDS IN PLACE FOR URINARY INCONTINENCE. PT CURRENTLY NPO. PT's FATHER IS SLEEPING IN RECLINER AT BEDSIDE. WILL CONTINUE TO MONITOR & UPDATE NEEDED.
--- NOTE | 2019-05-05 11:32 | NUR ---
DR FONSECA / UPDATE: PROVIDER HAS BEEN AT BEDSIDE TO WM LEW. OPTIONS ARE DISCUSSED REGARDING FURTHER TREATMENT VS HOSPICE & PAIN MANAGEMENT. THE PT's FATHER STS THAT HOSPICE IS NOT AN OPTION. PAIN & ANXIETY MANAGEMENTARE DISCUSSED & THE PT IS INFORMED THAT SHE CANNOT CONTINUE W/ IV PAIN/ANXIETY MEDS IF SHE PLANS TO GO HOME. THE PT IS AGREEABLE TO THIS BUT CONTINUES TO REQUEST "ONE MORE" DOSE OF IV PAIN MEDS. THE PT EXPRESSES TO THIS RN THAT SHE IS UNWILLING TO GO ON HOSPICE BECAUSE OF HER DOG. SHE DOESN'T WANT TO LEAVE THE DOG & FEELS GUILTY OVER THIS. SHE ALSO FEELS THAT ONE NURSE IN PARTICULAR, NAME UNKNOWN, PRESSURES HER INTO HOSPICE EVERY TIME SHE IS HOSPITALIZED. THIS RN REINFORCED THAT ALL OF THE NURSING & MEDICAL STAFF WANT HER TO KNOW HER OPTIONS HER PULMONARY DISEASE PROGRESSES. IT IS REINFORCED THAT THIS IS HER DECISION, NOT THE NURSES, DOCTORS OR HER FATHER's DECISION. WILL CONTINUE TO MONITOR & UPDATE NEEDED.
--- NOTE | 2019-05-05 13:30 | NUR ---
ASSUMED CARE OF PT. PT RESTING IN BED, REQUESTING MEDICATION FOR ANXIETY AND PAIN. NOTHING AVAILABLE FOR ANXIETY YET BUT PAIN MEDICATION GIVEN PER ORDERS. NO OTHER REQUESTS FROM PT. FAMILY AT THE BEDSIDE.
--- NOTE | 2019-05-05 16:14 | NUR ---
SHIFT SUMMARY: PT HAS BEEN RESTING QUIETLY IN BED. SHE IS STILL ANXIOUS BUT HASN'T HAD ANY PANIC ATTACKS.LUNGS ARE CLEAR, DIM IN THE BASES. REMAINS ON HOSPITAL VENTILATOR. SUCTIONING OUT THICK WHITE SPUTUM, LARGE AMT. ST IN 110S SINCE PRECEDEX TURNED OFF, BP STABLE. GENERALIZED EDEMA. CONTINENT OF VOID THIS AFTERNOON, BUT STILL HAS SOME INCONTINENCE PAD IN ATTENDS WAS WET. PT'S FATHER AND BROTHER HAVE BEEN AT THE BEDSIDE THIS AFTERNOON. CONTINUING TO MONITOR.
--- NOTE | 2019-05-05 20:22 | NUR ---
ASSUMED CARE OF PT, REPORT RCV'D FROM MELVI Garcia RN. PT ALERT AND ORIENTED LAYING IN BED. PT REPORTS BEING VERY ANXIOUS AND FEELING LIKE SHE "CAN'T BREATH". PER PT AND PT FAMILY, PT HAS CHRONIC ANXIETY AND REQUIRES MEDICATION MANAGEMENT. PT MEDICATED PER EMAR AND ENCOURAGED TO PRACTICE RELAXATION TECHNIQUE. PT TRACHED AND VENTED ON HOSPITAL VENT. VENT SETTINGS AC 12/400/5/30%, SATS IN THE LOW 90'S. LUNG SOUNDS CLEAR T/O WITH DIM BASES. OCCASIONAL THICK GREEN SPUTUM SUCTIONED, PT'S FATHER (AT BEDSIDE) AND PT SUCTION NEEDED. PT REPORTS 7/10 PAIN "ALL OVER", REPOSITIONED, GIVEN WARM BLANKET, AND MEDICATED PER EMAR. HR 100-140'S. PT OCCASIONALLY INCONTINENT, ATTENDS IN PLACE. SEE FULL SHIFT ASSESSMENT
--- NOTE | 2019-05-06 06:26 | NUR ---
SHIFT SUMMARY NO ACUTE CHANGES OVERNIGHT. PT REMAINS VERY ANXIOUS AND IS OCCASIONALLY CONFUSED. PT STATES SHE "DOESN'T WANT TO " AND THAT HER FAMILY "KNOWS SHE IS GOING TO " AND THAT SHE "FEELS BAD THAT HER DAD HAS TO TAKE CARE OF HER". DISCUSSED HOSPICE OPTIONS WITH HER AND EMPHASIZED THAT HOSPICE IS GEARED TOWARD PT COMFORT. PT MEDICATED WITH ANXIETY AND PAIN MEDICATION CONSISTENTLY PER EMAR. PT OFTEN ASKED FOR MEDICATION BETWEEN DOSAGE TIMES AND SOMETIMES ONLY MINUTES AFTER RECEIVING MEDICATION. VENT SETTINGS REMAIN 12/400/5/40%, EFFORTS TO TITRATE FIO2 TO 30% RESULTED IN PT STATING SHE "COULDN'T BREATHE" DESPITE SATS>90%. COPIOUS AMOUNTS OF THICK WHITE SPUTUM SUCTIONED. PT'S LAST BM WAS PRIOR TO ADMISSION TO HOSPITAL, WILL PASS ON TO DAYSHIFT NURSE NEED TO START BOWEL CARE. PT'S FAMILY REMAINS AT BEDSIDE. WILL REPORT TO DAYSHIFT NURSE.
--- NOTE | 2019-05-06 08:05 | NUR ---
ASSUMED CARE: REPORT RECEIVED FROM ANGEL Mai RN. ASSUMED CARE OF THIS PT AT APPROX 0700. ON ASSESSMENT, THE PT IS A&O, PLEASANT & COOPERATIVE. SHE STS FEELING "BETTER" TODAY & STS SHE "WANTS TO GO HOME." IT IS EXPLAINED TO HER THAT SHE MUST WORK W/ PHYSICAL THERAPY, ANXIETY/ PAIN MUST BE MANAGED BETTER, & HOME VENT MUST BE RESUMED. SHE IS AGREEABLE TO ALL OF THESE THINGS & MAINTAINS THAT SHE WOULD LIKE TO GO HOME. LS ARE CLEAR IN UPPERS, DIM IN LOWERS, PT REMAINS ON HOSPITAL VENT AT THIS TIME W/ SETTINGS: AC 12, TV 400, PEEP 5 & FIO2 40%. MONITOR SHOWS SR-ST W/ HR 80-100s. BP STABLE. PT HAS NO GI COMPLAINTS & IS TOLERATING PO INTAKE WELL. OCCASIONAL URINARY INCONTINENCE, ATTENDS IN PLACE, OTHERWISE CALLS FOR BEDPAN. SKIN OVERALL FRAGILE BUT INTACT. WILL CONTINUE TO MONITOR & UPDATE NEEDED.
--- NOTE | 2019-05-06 10:00 | NUR ---
DR FONSECA: PROVIDER AT BEDSIDE TO WM PT. HE IS AGREEABLE THAT IF PT IS ABLE TO WORK W/ THERAPY & TOLERATE TRANSITION TO HOME VENT, SHE MAY BE PCU STATUS THIS AFTERNOON & POSSIBLY D/C HOME TOMORROW. PT HAS BEEN NOTIFIED OF THIS & IS ALSO AGREEABLE. PHYSICAL THERAPY CURRENTLY WORKING W/ PT. WILL CONTINUE TO MONITOR & UPDATE NEEDED.
--- NOTE | 2019-05-06 13:28 | NUR ---
HOME VENT: PT TRANSITIONED FROM HOSPITAL VENT TO HOME VENT W/ HOME SETTINGS IN USE, 12L O2 BLEED-IN. PT TOLERATING WELL W/ MINIMAL ANXIETY, WILL TITRATE O2 DOWN ABLE.
--- NOTE | 2019-05-06 17:38 | NUR ---
SHIFT SUMMARY: NO ACUTE CHANGES THIS SHIFT. PT REMAINS A&O, W/ PERIODS OF FORGETFULNESS; OCCASIONALLY BELIEVES THAT SHE IS AT HOME INSTEAD OF IN THE HOSPITAL. PT HAS NOT FULLY SLEPT MUCH IN THE LAST 24 HRS. LS NOW COARSE ON R SIDE W/ MOD AMNTS OF THICK EMERSON SPUTUM SUCTIONED THROUGH TRACH. INNTER CANNULA CHANGED TODAY BY RT. PT CONTINUES ON HOME VENT W/ SIMV SETTINGS: PS 12, TV 500, PEEP 5 & 10L O2 BLEED-IN. MONITOR SHOWS SR-ST W/ HR 90-100s. BP STABLE. PT HAS NO GI COMPLAINTS & IS VOIDING W/O DIFFICULTY VIA BEDPAN. WILL CONTINUE TO MONITOR & REPORT OFF TO ONCOMING RN.
--- NOTE | 2019-05-06 20:43 | NUR ---
ASSUMED CARE OF PT, REPORT RCV'D FROM MELVI Wilburn RN. PT LAYING IN BED IN POSITION SLEEPING COMFORTABLY. PT IS ON HOME VENT WITH SETTINGS SIMV 12/500/5, 10L BLEED IN (HOME SETTING 5L BLEED IN). ALL VITAL SIGNS STABLE. PT'S BROTHER AT BEDSIDE. SEE FULL SHIFT ASSESSMENT.
--- NOTE | 2019-05-06 21:07 | NUR ---
PT CHANGED TO PCU STATUS PER DR. OGDEN WITH GOAL TO DISCHARGE PT HOME IN NEXT 24-48 HRS.
--- NOTE | 2019-05-07 06:25 | NUR ---
SHIFT SUMMARY PT REMAINS ON HOME VENT SIMV WITH 13L BLEED IN. PT HAS HAD COPIOUS AMOUNTS OF THICK SECRETION SUCTION FROM TRACH AND BLEED IN HAS NEEDED TO BE INCREASED FROM 10L TO 13L PER PT REQUEST AND TO MAINTAIN O2 SATS>90%. LUNG SOUNDS COARSE T/O. PT REMAINS ALERT AND MOSTLY ORIENTED WITH OCCASIONAL MOMENTS OF CONFUSION/FORGETFULNESS. PT VERY DROWSY AND SLEPT A MAJORITY OF THIS SHIFT. PT ALERT TO VERBAL STIMULI, PARTICIPATES IN CARE BUT QUICKLY FALLS BACK TO SLEEP. PT DID NOT REQUEST ATIVAN T/O SHIFT AND WAS TREATED ONLY 1 TIME FOR BREAKTHROUGH PAIN AT 0500. PT COMPLAINS THIS MORNING ABOUT "STOMACH PAIN", PT DESCRIBES PAIN "GAS CRAMPS". PT REMINDED THAT SHE HASN'T HAD A BM SINCE ADMISSION AND THAT SHE WAS GIVEN DOCUSATE LAST NIGHT. BT MUCH MORE ACTIVE THIS MORNING, NO PAIN ON PALPATION. PT DENIED NEED TO USE THE BEDPAN. PT DID NOT HAVE ANY URINARY OUTPUT THIS SHIFT. PT DENIED NEED TO USE BEDPAN WHEN ASKED AND DENIED NEED TO CHANGE ATTENDS T/O SHIFT. PT'S BROTHER REMAINS AT BEDSIDE. WILL REPORT TO DAYSHIFT NURSE.
--- NOTE | 2019-05-07 08:10 | NUR ---
ASSUMED CARE: REPORT RECEIVED FROM ANGEL Mai RN. ASSUMED CARE OF THIS PT AT APPROX 0700. ON ASSESSMENT, THE PT IS VERY DROWSY. SHE STS HAVING A "TERRIBLE HEADACHE" BUT THEN QUICKLY RESUMES SLEEPING. LS ARE COARSE T/O, MORE SO ON R SIDE. O2 SATS > 90% W/ HOME VENT SETTINGS SIMV PS 12, TV 500, PEEP 5 & 12L O2 BLEED-IN. MONITOR SHOWS ST, HR 120-130s. BP STABLE. NO GI/ COMPLAINTS. WILL CONTINUE TO MONITOR & UPDATE NEEDED.
--- NOTE | 2019-05-07 10:08 | NUR ---
DR COREAS: PROVIDER HAS BEEN AT BEDSIDE TO EVAL PT. INFORMED PROVIDER OF PT's INCREASED O2 REQUIREMENTS & SOMNOLENCE T/O MEDIA THEORIST AND AUTHOR OF, BUT THAT PT IS CURRENTLY AWAKE, A&O, & REQUESTING TO GO HOME TODAY. NO CHANGES AT THIS TIME. WILL CONTINUE OT MONITOR & UPDATE NEEDED.
--- NOTE | 2019-05-07 16:00 | NUR ---
REPORT FROM SUDHIR PLEAYO. ASSUMED PT CARE. PT SLEEPING. RESP EVEN VIA HOME VENT. PT DAD AT BEDSIDE SLEEPING. WILL CONT TO MONITOR.
--- NOTE | 2019-05-07 17:44 | NUR ---
VSS. PT MEDICATED WITH PRN OXY FOR C/O JAW PAIN. ORAL CARE COMPLETE. FAMILY AT BEDSIDE. MEAL TRAY PROVIDED.
--- NOTE | 2019-05-07 18:24 | NUR ---
PT APPEARS TO BE SLEEPING IN POSITION OF COMFORT. RESP EVEN PER HOME VENT. FAMILY AT BEDSIDE. WILL REPORT TO ONCOMING SHIFT.
--- NOTE | 2019-05-07 23:10 | NUR ---
ASSUMED CARE OF PT, REPORT RCV'D FROM PIERCE HUNT. PT ALERT AND ORIENTED, OCCASIONAL PERIODS OF CONFUSION BUT IS QUICKLY REORIENTED. PT APPEARS MUCH MORE AWAKE AND LESS ANXIOUS TODAY. PT ON HOME VENT SIMV 500/5 WITH 13L BLEED IN, ATTEMPTS TO DECREASE BLEED IN RESULT IN PT COMPLAINING OF SOB AND SATS<88%. COPIOUS AMOUNTS OF THICK EMERSON SPUTUM SUCTIONED. PT HAS STRONG COUGH AND IS ABLE TO BRING MUCOUS UP. BOWEL SOUNDS MUCH MORE ACTIVE, PT COMPLAINS OF SLIGHT TENDERNESS WITH PALPATION. PT REPORTS NEW ONSET RASH IN GIOVANNA AREA, GIOVANNA CARE PERFORMED AND BARRIER CREAM APPLIED. PTS FAMILY AT BEDSIDE. PT EXPRESSES CONCERN REGARDING HER FATHER WHO IS TO STAY OVERNIGHT. PER PT AND PT'S FAMILY, FATHER RECENTLY BEGAN "COUGHING UP BLOOD CLOTS", PT'S FATHER SITTING IN CHAIR SHIVERING. ENCOURAGED FATHER TO GO TO EMERGENCY DEPARTMENT TO GET ASSESSED. OFFERED TO GET WHEELCHAIR TO ASSIST WITH TRANSPORTATION. PT'S FATHER DECLINED. CHARGE NURSE SPOKE WITH PT'S FATHER AND FAMILY WELL. SEE FULL SHIFT ASSESSMENT. BED IN LOW LOCKED POSITION, CALL LIGHT WITHIN REACH.
--- NOTE | 2019-05-08 05:30 | NUR ---
AT 0400 PT'S HR INCREASED FROM 120'S TO 140'S AND PT'S OXYGEN NEEDS INCREASED. RT CALLED, PT REPOSITIONED, SUCTIONED, HOME VENT CIRCUITS CHANGED, INNER CANNULA CHANGED AND BLEED IN INCREASED TO 15 L. PT STILL UNABLE TO MAINTAIN SATS GREATER THAT 88%. PLACED CALL TO YARI, ORDER TO SWITCH PT TO HOSPITAL VENT. VENT SETTINGS AC 16/500/5/70%. PT CHANGED TO ICU STATUS.
[2019-05-08 05:35] LABS: BASOPHILS ABSOLUTE AUTO 0.07 K/mm3 (0.00-0.23); BASOPHILS PERCENT AUTO 0 % (0-2); EOSINOPHILS ABSOLUTE AUTO 0.37 K/mm3 (0.00-0.68); EOSINOPHILS PERCENT AUTO 2 % (0-6); Hematocrit 39.3 % (33.0-51.0); Hemoglobin 11.5 g/dL (11.5-16.0); IMMATURE GRAN ABSOLUTE AUTO 0.18 K/mm3 (0.00-0.10); IMMATURE GRAN PERCENT AUTO 1 % (0-1); LYMPHOCYTES ABSOLUTE AUTO 0.93 K/mm3 (0.84-5.20); LYMPHOCYTES PERCENT AUTO 4 % (21-46); MONOCYTES ABSOLUTE AUTO 0.78 K/mm3 (0.16-1.47); MONOCYTES PERCENT AUTO 3 % (4-13); Mean Corpuscular HGB 25.8 pg (26.0-34.0); Mean Corpuscular HGB Conc 29.3 g/dL (31.5-36.5); Mean Platelet Volume 11.5 fL (9.1-12.4); NEUTROPHILS ABSOLUTE AUTO 21.86 K/mm3 (1.96-9.15); NEUTROPHILS PERCENT AUTO 91 % (41-73); Platelet Count 298 K/mm3 (150-400); RDW Coefficient Variation 16.9 % (11.7-14.2); RDW Standard Deviation 53.7 fL (35.1-46.3); Red Blood Cell Count 4.46 M/mm3 (3.80-5.20); White Blood Cell Count 24.19 K/mm3 (4.00-11.30)
[2019-05-08 05:39] LABS: Mean Corpuscular Volume 88 fL (80-100)
[2019-05-08 05:53] LABS: Albumin, Blood 2.2 g/dL (3.4-5.0); Anion Gap 6 mmol/L (6-16); Blood Urea Nitrogen 14 mg/dL (8-24); Bun/Creatinine Ratio 13.7 (12.0-20.0); CO2, Blood 37 mmol/L (21-32); Chloride, Blood 94 mmol/L (98-108); Creatinine, Blood 1.02 mg/dL (0.40-1.00); Glomerular Filtration Rate >60 (60-); Glucose, Blood 114 mg/dL (70-99); Phosphorus, Blood 3.4 mg/dL (2.5-4.9); Potassium, Blood 3.7 mmol/L (3.5-5.5); Sodium, Blood 137 mmol/L (136-145)
--- NOTE | 2019-05-08 06:35 | NUR ---
SHIFT SUMMARY PT REMAINS ON HOSPITAL VENT WITH SETTINGS AC 16/500/5/70%. HR REMAINS IN THE 140'S. PT FEBRILE WITH TMAX 100.9. PT MEDICATED Q4 FOR PAIN AND ANXIETY. PT SLEEPY BUT EASILY AROUSES TO VERBAL STIMULUS. PLEASE SEE PREVIOUS NOTE REGARDING CHANGE IN PT CONDITION. WILL REPORT TO DAYSHIFT NURSE.
--- NOTE | 2019-05-08 09:15 | NUR ---
INITIAL ASSESSMENT PATIENT SLEEPING WHEN ASSUMED CARE OF PATIENT THIS AM. PATIENT CURRENTLY AWAKE AND COMMUNICATING WITH FATHER. FATHER IS SUCTIONING. PATIENT ALERT AND ORIENTED X 4. PATIENT HAS TRACH; WHISPERS AND MOUTHS WORDS. PATIENT CAN BE ANXIOUS AT TIMES. PATIENT WEAK BUT ABLE TO MOVE ALL EXTREMITIES AND REPOSITION SELF. PATIENT COMPLAINS OF PAIN IN GROIN, HIPS AND BACK. PAIN MEDS BEING GIVEN PER EMAR. PATIENT HAS TEMP OF 100.9 DEGREES FAHRENHEIT. PATIENT ON HOSPITAL VENT- SIMV 16, TV 500, P 5, PS 12, 70% FIO2. LUNGS CLEAR IN UPPER LOBES, DIMINISHED IN LOWER LOBES. SOB WITH EXERTION. MODERATE AMOUNT OF THICK, EMERSON SECRETIONS BEING SUCTIONED FROM ETT. PATIENT IN ST, HR IN THE 140S. BP STABLE. ABDOMEN MODERATELY DISTENDED, SOFT, TENDER, WITH HYPOACTIVE BS NOTED. PATIENT HAS NOT HAD BM SINCE THE . PRN MOM GIVEN. ATTENDS IN PLACE FOR OCCASIONAL INCONTINENCE. URINE YELLOW IN COLOR. SKIN IS FRAGILE. SCATTERED SCARS NOTED. SCATTERED BRUISES NOTED TO BUES. LACERATION TO R CALF. RASH TO GIOVANNA AREA- CALAZIME CREAM APPLIED. 1+ EDEMA NOTED TO EXTREMITIES. GENERALIZED EDEMA NOTED. PG TO R UA- FLUSHED AND SALINE LOCKED. BED LOW, CALL LIGHT IN REACH. WILL CONTINUE TO MONITOR PATIENT FREQUENTLY THROUGHOUT SHIFT.
--- NOTE | 2019-05-08 13:00 | NUR ---
PATIENT RESTING QUIETLY IN BED. FATHER AT BEDSIDE. PATIENT AFEBRILE. HR IN THE 130S. SBP IN THE 90S. PATIENT SATTING 90% AND GREATER ON SPONTANEOUS PRESSURE SUPPORT OF 12/5, 60% FIO2. NO COMPLAINTS AT THIS TIME. NO OTHER ACUTE CHANGES TO NOTE ON AT THIS TIME. WILL CONTINUE TO MONITOR.
--- NOTE | 2019-05-08 16:30 | NUR ---
PATIENT RESTING QUIETLY IN BED. PATIENT RECEIVED COMPLETE BED BATH. PATIENT HAS TEMP OF 99.0 DEGREES FAHRENHEIT. SPUTUM NOW EMERSON AND BLOODY. HR IN THE 120S. SBP IN THE 90S. NO OTHER CHANGES TO NOTE ON AT THIS TIME. PATIENT HAS NO COMPLAINTS AT THIS TIME. WILL CONTINUE TO MONITOR.
--- NOTE | 2019-05-08 18:34 | NUR ---
SHIFT SUMMARY PATIENT NAPPED ON AND OFF THROUGHOUT SHIFT. PATIENT REMAINED ALERT AND ORIENTED X 4. PATIENT HAD TMAX OF 100.9 DEGREES FAHRENHEIT. PATIENT WEAK BUT ABLE TO MOVE ALL EXTREMITIES AND REPOSITION SELF IN BED. PATIENT GIVEN PRN PAIN MEDICATION FOR COMPLAINT OF BACK, GROIN, AND HIP PAIN. PATIENT REMAINED ON VENT. PATIENT ON SIMV 16, TV 500, PEEP 5, PS 12, AND 70% FIO2 IN THE MORNING. PATIENT THEN CHANGED TO SPONTANEOUS PRESSURE SUPPORT 12/5 AND 70% FOR REST OF SHIFT. LUNGS REMAINED CLEAR IN UPPER LOBES AND DIMINISHED IN LOWER LOBES. PATIENT HAD MODERATE AMOUNT OF THICK, EMERSON AND BLOODY SECRETIONS BEING SUCTIONED FROM ETT. PATIENT REMAINED IN ST, HR 1-TEENS TO 140S. SBP MOSTLY IN THE 90S. HR IMPROVED WITH 2 L NS BOLUS'. PATIENT DID NOT HAVE BM THIS SHIFT. PATIENT GIVEN PRN MOM. PATIENT OCCASIONALLY INCONTINENT OF URINE. NO CHANGE IN SKIN. CALAZIME CREAM BEING APPLIED TO REDDENED GROIN AND BUTTOCKS. IV SALINE LOCKED. PATIENT STARTED ON ANTIBIOTICS THIS SHIFT HAS NEW LLL PNA PER DR. GREENBERG. SPUTUM CULTURE SENT TO LAB. PATIENT RECEIVED COMPLETE BED BATH THIS SHIFT. PATIENT HAD FAMILY IN ROOM MOST OF THE DAY. BED LOW, CALL LIGHT IN REACH. WILL CONTINUE TO MONITOR FREQUENTLY UNTIL REPORT GIVEN TO ONCOMING CREW TRAINER NURSE SHORTLY.
--- NOTE | 2019-05-08 20:00 | NUR ---
ASSUMED CARE OF PT AT 1915. REPORT RECEIVED AT BEDSIDE. PT PRESENTS IN BED. SLEEPING. ON HOSPITAL VENT PS 12, Tv 500, FIO2 60 %, PEEP 5. PT TOLERATING THIS WELL. DISCUSSED WITH RT PLAN OF CARE. NOTED PT DOES HAVE SOME LEAKING AROUND CUFF. REQUIRED 1ML AIR INFLATION TO CUFF. LEAK CEASED. WILL REVIEW CHART AND PLAN OF CARE FOR THIS PT.
--- NOTE | 2019-05-08 22:26 | NUR ---
PT AWAKENS AND IS ABLE TO TAKE HER PO MEDICATIONS. NO COUGH NOTED WITH SWALLOW. PT HAS BEEN INCONTINENT TO URINE. ATTENDS CHANGE AND GIOVANNA CARE DONE. PT DOES HER OWN ORAL CARE THOUGH IS NOT THOROUGH. ASSISTED HER WITH THE ORAL CARE. PT HAS BEEN SUCTIONED PER TRACH WITH RETURN OF EMERSON COLORED SECRETION. NO BLOOD TINGING NOTED AT THIS TIME. WILL CONTINUE TO MONITOR PT.
--- NOTE | 2019-05-09 01:32 | NUR ---
PT CURRENTLY SLEEPING WITHOU S/S DISTRESS. MANTAINS> 90 PERCENT ON HOSPITAL VENT. WILL CONTINUE TO MONITOR
[2019-05-09 06:11] LABS: BASOPHILS ABSOLUTE AUTO 0.07 K/mm3 (0.00-0.23); BASOPHILS PERCENT AUTO 0 % (0-2); EOSINOPHILS ABSOLUTE AUTO 0.37 K/mm3 (0.00-0.68); EOSINOPHILS PERCENT AUTO 2 % (0-6); Hemoglobin 10.1 g/dL (11.5-16.0); IMMATURE GRAN ABSOLUTE AUTO 0.16 K/mm3 (0.00-0.10); IMMATURE GRAN PERCENT AUTO 1 % (0-1); LYMPHOCYTES ABSOLUTE AUTO 0.67 K/mm3 (0.84-5.20); LYMPHOCYTES PERCENT AUTO 3 % (21-46); MONOCYTES ABSOLUTE AUTO 0.73 K/mm3 (0.16-1.47); MONOCYTES PERCENT AUTO 3 % (4-13); Mean Corpuscular HGB 25.9 pg (26.0-34.0); Mean Corpuscular HGB Conc 28.9 g/dL (31.5-36.5); Mean Corpuscular Volume 90 fL (80-100); Mean Platelet Volume 10.6 fL (9.1-12.4); NEUTROPHILS ABSOLUTE AUTO 23.29 K/mm3 (1.96-9.15); NEUTROPHILS PERCENT AUTO 92 % (41-73); Platelet Count 248 K/mm3 (150-400); RDW Coefficient Variation 16.6 % (11.7-14.2); RDW Standard Deviation 54.5 fL (35.1-46.3); White Blood Cell Count 25.29 K/mm3 (4.00-11.30)
[2019-05-09 06:26] LABS: Albumin, Blood 2.1 g/dL (3.4-5.0); Anion Gap 6 mmol/L (6-16); Blood Urea Nitrogen 16 mg/dL (8-24); CO2, Blood 34 mmol/L (21-32); Calcium, Blood 8.9 mg/dL (8.5-10.1); Chloride, Blood 102 mmol/L (98-108); Creatinine, Blood 1.23 mg/dL (0.40-1.00); Glomerular Filtration Rate 48 (60-); Glucose, Blood 93 mg/dL (70-99); Phosphorus, Blood 3.3 mg/dL (2.5-4.9); Potassium, Blood 3.8 mmol/L (3.5-5.5); Sodium, Blood 142 mmol/L (136-145)
--- NOTE | 2019-05-09 06:26 | NUR ---
ATTEMPTED TO DRAW LABS FROM POWERGLIDE, AND WAS UNSUCESSFUL. PT REMAINS WITH TRACH TO HOSPITAL VENT. HAS BEEN SUCTIONED MULTIPLE TIMES THIS NIGHT WITH CREAM COLORED SECRETIONS WITH OCCASSIONAL LIGHT BLOOD STREAKS. PT'S FATHER, DEWEY, REMAINS AT BEDSIDE. PT HAS BEEN INCONTINENT SEVERAL TIMES THIS NIGHT. HAS BEEN ABLE TO REQUEST BEDPAN ONCE AND SUCCESSFULLY VOIDED. WILL CONTINUE TO MONITOR PT, AND WILL REPORT OFF TO ONCOMING RN.
--- NOTE | 2019-05-09 09:36 | NUR ---
CARE ASSUMED CARE AND REPORT ASSUMED FROM JAYCEE PELAYO. PT SLEEPING BUT EASILY AROUSABLE. A/O X3, ANSWERING QUESTIONS APPROPRIATELY AND JOKING WITH STAFF. FATHER AT BEDSIDE. ATTENDS CHANGED. C/O GENERAL PAIN; REPOSITIONED AND SCHEDULED PAIN MEDS ADMINISTERED. ABLE TO TOLERATE DRINKING FLUIDS AND TAKING PILLS WIHOUT ANY SIGNS OF ASPIRATION OR CHOKING. TRACH SECURED. ON HOSPITAL VENT, PS 12/5, FIO2 60%. LUNG SOUNDS CLEAR THIS AM. ANBX INFUSING. SINUSTACH, HR 120S. BP WNL. TEMP 99.2. WILL CONTINUE TO MONITOR.
--- NOTE | 2019-05-09 11:36 | NUR ---
REASSESSMENT PT CONFUSED AND HAVING DIFFICULTY STAYING AWAKE WHEN TALKING TO HER. FAMILY AT BEDSIDE. REMAINS TACHYCARDIC, HR 120S. BP LOW, 90S/60S. MD AWARE. INFUSING 500 ML BOLUS AT THIS TIME; THEN WILL START MIV AT 100 ML/HR PER ORDER. TEMP 99.4. WILL CONTINUE TO MONITOR.
--- NOTE | 2019-05-09 17:42 | NUR ---
SHIFT SUMMARY PT RECIEVED BEDBATH AND LINEN CHANGE. SAT ON EDGE OF BED 2X TODAY WITH ASSISTANCE; ONCE WITH PT AND ONCE DURING BATH. VERY WEAK AND SPO2 DROPS WITH EXERTION. CURRENTLY ON HOSPITAL VENT PS 10/5, FIO2 60%. FAMILY IN/OUT ENTIRE SHIFT. PT RECIEVED NS BOLUS 500 ML AND NOW HAS MIV INFUSING AT 100 ML/HR. HR IMPROVED SLIGHTLY TO 115. REFUSED TO EAT TODAY. ASSISTED WITH TURNING. TMAX 99.4. WILL GIVE BEDSIDE, HANDOFF REPORT TO SEGUN RN.
--- NOTE | 2019-05-09 20:00 | NUR ---
ASSUMED CARE OF PT AT 1915. REPORT RECEVIED. PT PRESENTS IN BED. ALERT AND COOPERATIVE WITH CARE AND ASSESSMENT. PT'S FATHER TO ROOM IN FOR THE NIGHT. WILL REVIEW CHART AND PLAN OF CARE FOR THIS PT.
[2019-05-10 03:22] LABS: BASOPHILS ABSOLUTE AUTO 0.03 K/mm3 (0.00-0.23); BASOPHILS PERCENT AUTO 0 % (0-2); EOSINOPHILS ABSOLUTE AUTO 0.27 K/mm3 (0.00-0.68); EOSINOPHILS PERCENT AUTO 2 % (0-6); Hematocrit 31.3 % (33.0-51.0); Hemoglobin 9.1 g/dL (11.5-16.0); IMMATURE GRAN ABSOLUTE AUTO 0.09 K/mm3 (0.00-0.10); IMMATURE GRAN PERCENT AUTO 1 % (0-1); LYMPHOCYTES ABSOLUTE AUTO 0.58 K/mm3 (0.84-5.20); LYMPHOCYTES PERCENT AUTO 3 % (21-46); MONOCYTES ABSOLUTE AUTO 0.95 K/mm3 (0.16-1.47); MONOCYTES PERCENT AUTO 5 % (4-13); Mean Corpuscular HGB 26.3 pg (26.0-34.0); Mean Corpuscular HGB Conc 29.1 g/dL (31.5-36.5); Mean Corpuscular Volume 91 fL (80-100); Mean Platelet Volume 11.9 fL (9.1-12.4); NEUTROPHILS ABSOLUTE AUTO 15.58 K/mm3 (1.96-9.15); NEUTROPHILS PERCENT AUTO 89 % (41-73); Platelet Count 220 K/mm3 (150-400); RDW Coefficient Variation 16.6 % (11.7-14.2); RDW Standard Deviation 54.3 fL (35.1-46.3); Red Blood Cell Count 3.46 M/mm3 (3.80-5.20)
[2019-05-10 03:39] LABS: Anion Gap 3 mmol/L (6-16); Blood Urea Nitrogen 9 mg/dL (8-24); Bun/Creatinine Ratio 8.5 (12.0-20.0); CO2, Blood 34 mmol/L (21-32); Calcium, Blood 8.1 mg/dL (8.5-10.1); Chloride, Blood 104 mmol/L (98-108); Creatinine, Blood 1.06 mg/dL (0.40-1.00); Glomerular Filtration Rate 58 (60-); Glucose, Blood 117 mg/dL (70-99); Potassium, Blood 3.2 mmol/L (3.5-5.5); Sodium, Blood 141 mmol/L (136-145); Vancomycin, Trough 19.5 ug/mL (5.0-10.0)
--- NOTE | 2019-05-10 06:30 | NUR ---
PT HAS BEEN ABLE TO REST SOME THIS NIGHT. HAS HAD ISSUES WITH CUFF LEAK. PRESSURES CHECKED AT APPROX Q 1-2 HOURS. NO S/S ADVERSE REACTIONS TO ANTIBIOTIC THERAPY. HAVE SUCTIONED PT PER TRACH WITH RETURN OF LARGE AMOUNT OF EMERSON/CREAM COLOR SECRETIONS. WILL CONTINUE TO MONITOR PT, AND WILL REPORT OFF TO ONCOMING RN.
--- NOTE | 2019-05-10 09:34 | NUR ---
CARE ASSUMED CARE AND REPORT ASSUMED FROM JAYCEE PELAYO. PT SLEEPING BUT EASILY AROUSES. ATTENDS CHANGED AT START OF SHIFT DUE TO COMPLETELY BEING SOILED AND LINENS SOAKED IN URINE. PT INCONTINENT. GIOVANNA AREA IS EXCORIATED, PEELING, AND REDDEDED. BARRIER CREAM APPLIED TO GIOVANNA AREA AND MD COREAS AWARE, BUT DENIED NEED FOR ZENDEJAS CATH AT THIS TIME. LUNG SOUNDS CLEAR. PT CONTINUES TO HAVE LARGE AMOUNTS OF THICK, EMERSON SECRETIONS. FAMILY AT BEDSIDE. REFUSING TO EAT BREAKFAST BUT DID TAKE A FEW BITES OF PUDDING TO TAKE POTASSIUM PILLS. ABX INFUSING. REMAINS ON HOSPITAL VENT, PS 10/5, FIO2 50%. BEDBATH AND LINEN CHANGE GIVEN THIS AM. AFEBRILE. BP WNL. [place], HR 115-130. WILL CONTINUE TO MONITOR.
--- NOTE | 2019-05-10 12:05 | NUR ---
REASSESSMENT PT SLEEPING AND AWAKENS TO VERBAL STIMULI. HAS DIFFICULTY REMAINING AWAKE. REFUSING TO EAT LUNCH BUT WILLING TO DRINK SOME ENSURE. REMAINS S[place]USTACH, HR 120-130S. CONTINUING TO SUCTION LARGE AMOUNTS OF THICK, EMERSON SECRETIONS FROM TRACH IN LINE AND AROUND TRACH. FAMILY REMAINS BEDSIDE. CONTINUES TO HAVE FLUCTUATING SPO2 RANGING FROM 86% AT TIMES, UP TO 92%. WILL CONTINUE TO MONITOR.
[2019-05-10 13:31] LABS: PCO2 Arterial 72.7 mmHg (35-45); PO2 Arterial 55.6 mmHg (80-100)
--- NOTE | 2019-05-10 15:49 | NUR ---
PT. IS VENT DEPENDANT. PT. IS ON OUR VENT AT THIS TIME. PT'S HOME VENT IS IN THE ROOM.
[2019-05-10 17:00] LABS: Source, Urine Catheter
--- NOTE | 2019-05-10 17:02 | NUR ---
SHIFT SUMMARY TRACH AND COLLAR CHANGED TODAY. ABG COMPLETED AND FOLLOWING RESULTS, VENT CHANGED TO SIMV MODE. VENT CURRENTLY AT SIMV 450, 10/5, FIO2 50%. CONTINUES TO HAVE LARGE AMOUNTS OF SECRETIONS. ZENDEJAS CATH INSERTED PER MD ORDER AND UA SENT TO LAB. ATIVAN 1 MG IVP GIVEN DURING TRACH CHANGE PER PT REQUEST. TOBRAMYCIN ANBX CHANGED TO IV ADMINISTRATION; CURRENTLY INFUSING. POTASSIUM REPLACED ORALLY THIS AM. PT REFUSED TO EAT MUCH DURING SHIFT. HAS BEEN CALM AND COOPERATIVE AND SLEPT MOST OF DAY. RECIEVED LINEN CHANGE AND BEDBATH AT START OF SHIFT. HANDOFF REPORT GIVEN TO MANDO PELAYO AT THIS TIME.
[2019-05-10 17:05] LABS: Bilirubin, Urine Neg (Neg); Blood, Urine 2+ (Neg); Glucose Qualitative, Urine Neg (Neg); Ketones, Urine Neg (Neg); Leukocyte Esterase, Urine 1+ (Neg); Nitrite, Urine Neg (Neg); Protein, Urine 2+ (Neg); Urobilinogen, Urine NORM (Normal)
[2019-05-10 17:11] LABS: Appearance, Urine Clear (Clear); Color, Urine Yellow (P-Yellow)
[2019-05-10 17:12] LABS: White Blood Cells, Urine 0-2 /hpf (0-5)
--- NOTE | 2019-05-10 17:13 | NUR ---
Will continue supportive visits with her father and family as needed. NOt appropriate for us interviene at this time pt has been clear in her wishes. Our goal is to maintain a realtionship with pt and family for support.
[2019-05-10 17:14] LABS: Amorphous Light (0-Heavy); Bacteria Few /hpf; Squamous Epithelial Cells Not Seen /hpf (Few)
--- NOTE | 2019-05-10 17:56 | NUR ---
UPDATE Assumed care of pt at 1700 from Leelee PELAYO. Pt lethargic. Awakens to gentle touch and verbal stimulus. Stays awake for less than a minute. On ventilator through trach, SIMV 450/10/5 FiO2 50%. Pt's daughter at bedside. Sinus tachycardia per monitor.
--- NOTE | 2019-05-10 20:05 | NUR ---
ASSUMED CARE OF PT AT 1915. REPORT RECEIVED. PT PRESENTS IN BED. SOMNOLENT, TRACH TO HOSPITAL VENT. PT MAINTAINS O2 SATURATIONS > 90 PERCENT. PT'S FATHER, DEWEY AT BEDSIDE. OTHER FAMILY IN FOR VISIT. DISCUSSED PLAN OF CARE FOR PT. WILL REVIEW CHART AND PLAN OF CARE FOR THIS PT.
--- NOTE | 2019-05-11 00:30 | NUR ---
CALL MADE TO DR CHANEL CONCERNING PT'S TEMPERATURE WITH MAX 103.1 PER TEMP PROBE. HEART RATE IN 140'S WITH BLOOD PRESURES WITH SBP 70'S TO 80'S. ORDER RECEIVED FOR NS BOLUS, AND BLOOD CULTURES. TYLENOL TO BE GIVEN.
--- NOTE | 2019-05-11 01:21 | NUR ---
RELIEVED PT RN, JAYCEE FOR LUNCH. PT C/ 102.9 TEMP BUT NOT AWAKE ENOUGH TO TAKE PO. CHANGED PO ORDER FOR TYLENOL TO [place]. CLINICAL TRIALS ASSISTANT RONY AWARE AND BROUGHT ICE PACKS. ICE PACK APPLIED TO [place] AND [place] [facility]. WILL ADMINISTER TYLENOL [place] WHEN AVAILALE. WILL UPDATE PT RN.
--- NOTE | 2019-05-11 04:00 | NUR ---
PT'S TEMPERATURE HAS BEEN CORRECTING AFTER TYLENOL GIVEN. HAVE UPDATED PT AND HER FATHER ON PT BEING FEBRILE. PT HAS BEEN SUCTIONED PER TRACH AT APPROX Q 1 1/2 HOUR TO 2 HOURS WITH RETURN OF LARGE AMOUNT OF THICK PROGRESSING TO THINNER CREAM TO EMERSON COLORED SECRETION. PT TOLERATES THIS WELL. WILL CONTINUE TO MONITOR.
[2019-05-11 04:16] LABS: BASOPHILS ABSOLUTE AUTO 0.03 K/mm3 (0.00-0.23); BASOPHILS PERCENT AUTO 0 % (0-2); EOSINOPHILS ABSOLUTE AUTO 0.19 K/mm3 (0.00-0.68); EOSINOPHILS PERCENT AUTO 1 % (0-6); Hematocrit 27.9 % (33.0-51.0); Hemoglobin 8.2 g/dL (11.5-16.0); IMMATURE GRAN ABSOLUTE AUTO 0.06 K/mm3 (0.00-0.10); IMMATURE GRAN PERCENT AUTO 0 % (0-1); LYMPHOCYTES ABSOLUTE AUTO 0.56 K/mm3 (0.84-5.20); LYMPHOCYTES PERCENT AUTO 4 % (21-46); MONOCYTES ABSOLUTE AUTO 0.97 K/mm3 (0.16-1.47); MONOCYTES PERCENT AUTO 7 % (4-13); Mean Corpuscular HGB 26.4 pg (26.0-34.0); Mean Corpuscular HGB Conc 29.4 g/dL (31.5-36.5); Mean Corpuscular Volume 90 fL (80-100); Mean Platelet Volume 11.9 fL (9.1-12.4); NEUTROPHILS ABSOLUTE AUTO 12.74 K/mm3 (1.96-9.15); NEUTROPHILS PERCENT AUTO 88 % (41-73); Platelet Count 217 K/mm3 (150-400); RDW Coefficient Variation 16.7 % (11.7-14.2); RDW Standard Deviation 54.4 fL (35.1-46.3); Red Blood Cell Count 3.11 M/mm3 (3.80-5.20); White Blood Cell Count 14.55 K/mm3 (4.00-11.30)
[2019-05-11 04:38] LABS: Albumin, Blood 1.6 g/dL (3.4-5.0); Anion Gap 6 mmol/L (6-16); Blood Urea Nitrogen 9 mg/dL (8-24); Bun/Creatinine Ratio 7.9 (12.0-20.0); CO2, Blood 31 mmol/L (21-32); Chloride, Blood 106 mmol/L (98-108); Creatinine, Blood 1.14 mg/dL (0.40-1.00); Glomerular Filtration Rate 53 (60-); Glucose, Blood 80 mg/dL (70-99); Magnesium, Blood 1.8 mg/dL (1.6-2.4); Phosphorus, Blood 1.9 mg/dL (2.5-4.9); Potassium, Blood 3.5 mmol/L (3.5-5.5); Sodium, Blood 143 mmol/L (136-145)
--- NOTE | 2019-05-11 06:31 | NUR ---
PT HAS HAD TEMP MAX THIS NIGHT OF 103.1 PER ZENDEJAS TEMP PROBE. PT MEDICATED WITH TYLENOL PER SUPPOSITORY X 1 WITH GOOD RESULTS. PT'S HEART RATE HAS BEEN HIGH 140'S WITH BLOOD PRESSURE DROP. SPOKE WITH DR CHANEL ON PHONE WHEREAS ORDERS RECEVIED. PT RESPONDS TO FLUID BOLUS. ACCESSED MEDIPORT THIS SHIFT. BLOOD CULTURE SET DRAWN FROM PORT. WILL CONTINUE TO MONITOR PT, AND WILL REPORT OFF TO ONCOMING RN.
--- NOTE | 2019-05-11 07:30 | NUR ---
BEGINNING OF SHIFT Assumed care of pt at 0700 from Jelani RN. Pt alert. Mouths answers to questions. Pt nods head in understanding when this RN discusses plan of care. Pt on ventilator through trach. Ventilator in SIMV mode. vT 450 and rate of 16. FiO2 55%. Productive cough. Thick umanzor sputum suctioned from trach. Afebrile. Sinus tachycardia, rate 104 per monitor. BP stable. Bed in lowest position. Call light in reach. Pt denies need at this time.
--- NOTE | 2019-05-11 10:30 | NUR ---
UPDATE PT and OT in to see pt. This RN requested therapy visits this afternoon. Pt alert enough to take meds PO. Offered meds with ensure, however, pt refused Ensure and wanted to take meds with water instead. Pt did not eat breakfast this AM. Pt requested bedpan, however was unable to have bowel movement.
[2019-05-11 10:46] LABS: PCO2 Arterial 54.3 mmHg (35-45); PO2 Arterial 62.8 mmHg (80-100); pH Blood Arterial 7.38 (7.35-7.45)
--- NOTE | 2019-05-11 12:25 | NUR ---
FEVER AND TACHYCARDIA Temperature 100.8 per temp probe taylor. HR 150s. Pt lethargic. Awakens to gentle verbal stimulus but stays awake for less than one minute. Tylenol suppository administered. Blankets removed. Fan turned on. Will continue to reassess.
--- NOTE | 2019-05-11 12:50 | NUR ---
CASE DISCUSSED WITH DR CHANEL This RN notified provider that pt was febrile; fever was not improving after tylenol suppository. Also notified provider that pt was tachycardic with HR in 150s. BP stable. Dicussed that blood cultures were taken from mediport during previous shift, however peripheral specimen was not obtained. Provider states plan to place orders for blood cultures.
--- NOTE | 2019-05-11 12:55 | NUR ---
ASSUMED CARE OF PATIENT; DISCUSSION WITH DR. CHANEL (BY PIERCE GILMORE) RE: IF 2ND BLOOD CULTURE SHOULD BE DRAWN; ONLY 1 SET DURING NIGHT D/T POOR IV ACCESS, ETC. LAB CAME BY AND HAD RN DRAW CULTURE SPECIMEN FROM [facility]; RN AIDE SPECIMEN PER PROTOCOL.
--- NOTE | 2019-05-11 13:00 | NUR ---
TRANSFER OF CARE This RN reported to Agustina PELAYO, who is assuming care of patient for remainder of shift.
--- NOTE | 2019-05-11 13:06 | NUR ---
TRANSFERRED FROM ICU 14 TO ICU 10 VIA BED; "BAGGED" BY RESP. THERAPIST; RECONNECTED TO VENT. (PER SIMV SETTINGS: TV 450, P/S 10, PEEP 5 AND SIMV RATE OF 16; UPON ARRIVAL TO NEW ROOM. FATHER PRESENT DURING TRANSFER PROCESS AND THEN LEFT ICU FOR AWHILE (FOOD, ?REST, ETC). DR. CHANEL WANTING TO CHECK PATIENTS' DAD AND SEE IF HE REQUIRES NEED OF MEDICAL CARE (DAD IS DR. CHANEL'S PATIENT, ROUTINELY). LUNGS COARSE AND DIMINISHED IN BASES. MONITOR REMAINS ST WITH RATE 130'S TO 140'S. SBP RUNNING LOW; MAP OVER 60.
--- NOTE | 2019-05-11 13:30 | NUR ---
DR. CHANEL ORDER K-PHOS RIDER TO BE GIVEN TO PATIENT.
--- NOTE | 2019-05-11 13:59 | NUR ---
Ask favio Ace to have visit with patients father for supportive time.
--- NOTE | 2019-05-11 14:02 | NUR ---
LR TO INFUSE AT 100/HR; PATIENT DEHYDRATED AND FEBRILE; MEDICATED WITH TYLENOL SUPP. EARLIER AND FEVER NOT INCREASING.
--- NOTE | 2019-05-11 15:41 | NUR ---
Patient is lying in bed and minimally responsive. Family members are bedside. Patient's father, Paulo, is talkative and shares his life story from age 12 to present. Intertwined in the stories patient would tell about his 's wolfe with the same medical issues that the patient struggles with and then he shared about his 's 9 years ago. Paulo discussed how he wants heroic measures but he also understands where the patient's health issues are headed. He is at peace with her passing but because he saw his come back from dire medical events over and over, he believes his daughter can too. We talk about his spiritual journey and the family that support the patient. I listen empathically, normalize the family's experience, provide companionship, pastoral cousel and prayer. Paulo and the family voice appreciation for the time and prayer. I will continue to remain available to patient and family.
--- NOTE | 2019-05-11 17:15 | NUR ---
SBP 60'S AND MAP IN 50'S; RN INFORMED DR. CHANEL; ORDERED LEVOPHED DRIP WELL AND NS (2L) BOLUS' TO BE GIVEN THEN RESUME LR AT 100/HR.
--- NOTE | 2019-05-11 17:32 | NUR ---
LEVOPHED DRIP STARTED AT 5MCG/MIN.
--- NOTE | 2019-05-11 17:34 | NUR ---
1ST LITER OF NS STARTED (INFUSING AT 999ML/HR); TO FOLLOW WITH 2ND LITER AND THEN RETURN TO LR AT 100/HR. ZENDEJAS OUTPUT 400ML OF KWAKU URINE. PATIENT REMAINS SLEEPY BUT ROUSES TO VERBAL OR TACTILE STIMULI. WILL REPORT TO ONCOMING RN.
--- NOTE | 2019-05-11 20:51 | NUR ---
[place] of Care: Care assumed at 1900hr. Patient sleeping, but rouses easily to verbal stimuli, appears drowsy. C/o pain 7/10 to back, routine oxycontin given. Tolerated PO fluids with pills whole without difficulty. On vent to trach appliance, vent set to SIMV 16/450/5/45%, O2-93-95%, tolerating vent without difficulty. Moderate amount of thin, yellow tinged secretions suctioned from trach tube/appliance. VSS, HR-80's, MAP-65-80's. Levophed gtt at 5mcg/min at shift change, decreased to 3mcg/min, BP remains stable. Power-glide to NADER patent and intact, infusing fluids without difficulty. Medi-port accessed to rt upper chest, patent and intact, infusing Levophed and NS TKO without difficulty. Bynum cath patent and intact, draining clear yellow urine. Appears calm and comfortable at this time. Will continue to monitor for pain, safety, comfort.
[2019-05-12 02:42] LABS: BASOPHILS ABSOLUTE AUTO 0.03 K/mm3 (0.00-0.23); BASOPHILS PERCENT AUTO 0 % (0-2); EOSINOPHILS PERCENT AUTO 0 % (0-6); Hematocrit 26.7 % (33.0-51.0); Hemoglobin 7.9 g/dL (11.5-16.0); IMMATURE GRAN ABSOLUTE AUTO 0.08 K/mm3 (0.00-0.10); IMMATURE GRAN PERCENT AUTO 1 % (0-1); LYMPHOCYTES PERCENT AUTO 2 % (21-46); MONOCYTES ABSOLUTE AUTO 0.39 K/mm3 (0.16-1.47); MONOCYTES PERCENT AUTO 2 % (4-13); Mean Corpuscular HGB 26.2 pg (26.0-34.0); Mean Corpuscular HGB Conc 29.6 g/dL (31.5-36.5); Mean Corpuscular Volume 89 fL (80-100); Mean Platelet Volume 11.4 fL (9.1-12.4); NEUTROPHILS ABSOLUTE AUTO 16.18 K/mm3 (1.96-9.15); NEUTROPHILS PERCENT AUTO 95 % (41-73); Platelet Count 235 K/mm3 (150-400); RDW Coefficient Variation 17.2 % (11.7-14.2); RDW Standard Deviation 55.4 fL (35.1-46.3); Red Blood Cell Count 3.01 M/mm3 (3.80-5.20); White Blood Cell Count 16.98 K/mm3 (4.00-11.30)
[2019-05-12 03:09] LABS: Albumin, Blood 1.4 g/dL (3.4-5.0); Anion Gap 4 mmol/L (6-16); Blood Urea Nitrogen 10 mg/dL (8-24); Bun/Creatinine Ratio 10.4 (12.0-20.0); CO2, Blood 31 mmol/L (21-32); Calcium, Blood 7.8 mg/dL (8.5-10.1); Chloride, Blood 110 mmol/L (98-108); Creatinine, Blood 0.96 mg/dL (0.40-1.00); Glomerular Filtration Rate >60 (60-); Glucose, Blood 144 mg/dL (70-99); Magnesium, Blood 1.7 mg/dL (1.6-2.4); Phosphorus, Blood 3.7 mg/dL (2.5-4.9); Potassium, Blood 3.9 mmol/L (3.5-5.5); Sodium, Blood 145 mmol/L (136-145); Tobramycin, Trough <0.3 ug/mL (0.0-1.9)
[2019-05-12 04:37] LABS: PCO2 Arterial 50.9 mmHg (35-45); pH Blood Arterial 7.39 (7.35-7.45)
--- NOTE | 2019-05-12 05:43 | NUR ---
Shift Summary: Patient slept well throughout shift. Continues to rouse easily to verbal stimuli. No further c/o pain following routine oxycontin given early in shift. Vent remained on SIMV throughout shift, FiO2 decreased from 45% to 40%, tolerated vent without difficulty throughout shift. Levophed gtt decreased from 5mcg/min to 2mcg/min throughout shift, BP remains stable. Power-glide to NADER remains patent and intact. Medi-port to rt upper chest remains patent and intact. Bynum drained 1,600ml of light yellow urine throughout shift. Appears calm and comfortable at this time. Will continue to monitor until report to day shift RN.
--- NOTE | 2019-05-12 07:30 | NUR ---
ASSUMED CARE OF PATIENT; SEE ASSESSMENT CHARTING FOR DETAILS. VENT. SETTINGS REMAIN UNCHANGED: SIMV 16, TV 450; PEEP 5 AND P/S 10 WITH FIO2 OF 40%. EPISODES OF LOOSE COUGH; PRODUCTIVE OF SEMI-THICK CLEAR/YELLOW MUCUS; SUCTIONED VIA ETT BY RN; SCANT ORAL SECRETIONS. ZENDEJAS DRAINING FAIR AMOUNT OF MED. YELLOW URINE. ABD ROTUND BUT SOFT; ACTIVE BOWEL TONES; PASSING FLATUS BUT NO BM. MONITOR REMAINS NSR TO ST WITH RARE ECTOPY. REMAINS ON LEVOPHED DRIP AT 2MCG/MIN.; SBP LOW 100'S. TEMP. ABOUT 98.9 VIA ZENDEJAS TEMP. PROBE. PATIENT REMAINS SLEEPY BUT ROUSES TO VERBAL STIMULI; STAYING AWAKE FOR LONGER INTERVALS AND USING PAPER/PENCIL TO COMMUNICATE ( WELL MOUTHING WORDS). LR INFUSING AT 100ML/HR (MAINT.). MEDIPORT, TO R CHEST, WELL POWERGLIDE TO NADER INTACT.
--- NOTE | 2019-05-12 10:30 | NUR ---
LEVOPHED GTT PUT ON STANDBY; SBP STABILIZED. LR REMAINS AT 100ML/HR.
--- NOTE | 2019-05-12 10:50 | NUR ---
DR. COREAS HERE; RN UPDATED, HER, ON PATIENTS' CURRENT STATUS.
--- NOTE | 2019-05-12 12:49 | NUR ---
DR. CHANEL MADE ROUNDS; PLEASED WITH PATIENTS' PROGRESS AND STATES SHE LOOKS BETTER TODAY THAN ANY DAY DURING THIS HOSPITAL STAY. SEE ORDERS FOR ANY CHANGES, ETC.
--- NOTE | 2019-05-12 18:00 | NUR ---
SUMMARY: OVERALL STABLE T/O DAY; REMAINS OFF LEVOPHED. VSS AND LOW GRADE FEVER. NO NEED FOR TYLENOL SUPP. SINCE NOON YESTERDAY. DOSE OF PO ATIVAN GIVEN EARLY IN DAY, PER PATIENT REQUEST; C/O OF INCREASING ANXIETY. NO VENT CHANGES; INNERCANNULA TO TRACH. CHANGED BY R.T. TODAY. APPETITE POOR BUT STAYING AWAKE FOR LONGER PERIODS; ASSISTED WITH FLUIDS AND MEDS. FATHER REMAINS IN/OUT; STAYS T/O NIGHT USUALLY. WILL REPORT TO ONCOMING RN.
--- NOTE | 2019-05-12 22:48 | NUR ---
[place] of Care: Care assumed at 1900hr. Patient alert/oriented x4, sitting up in bed watching TV and visiting with her father at bedside. C/o pain effectively managed with routine scheduled oxycontin. C/o anxiety/fear, effectively managed with x1 prn PO Ativan. Vent per trach appliance continues on SIMV 16/450/5/45%, O2-96-98%, tolerating vent mode without difficulty. Moderate/large amount of thick yellow secretions suctioned from trach tube. BP remains stable, levophed gtt turned off on day shift. Tolerating PO fluids and pills without difficulty. Medi-port to rt upper chest, and Power-glide to NADER remain patent and intact, infusing without difficulty. Bynum cath patent and intact, draining clear yellow urine. Will continue to monitor.
[2019-05-13 04:27] LABS: BASOPHILS ABSOLUTE AUTO 0.01 K/mm3 (0.00-0.23); BASOPHILS PERCENT AUTO 0 % (0-2); EOSINOPHILS PERCENT AUTO 0 % (0-6); Hematocrit 24.6 % (33.0-51.0); Hemoglobin 7.2 g/dL (11.5-16.0); IMMATURE GRAN ABSOLUTE AUTO 0.03 K/mm3 (0.00-0.10); IMMATURE GRAN PERCENT AUTO 0 % (0-1); LYMPHOCYTES ABSOLUTE AUTO 0.36 K/mm3 (0.84-5.20); LYMPHOCYTES PERCENT AUTO 5 % (21-46); MONOCYTES ABSOLUTE AUTO 0.21 K/mm3 (0.16-1.47); MONOCYTES PERCENT AUTO 3 % (4-13); Mean Corpuscular HGB Conc 29.3 g/dL (31.5-36.5); Mean Corpuscular Volume 89 fL (80-100); Mean Platelet Volume 11.2 fL (9.1-12.4); NEUTROPHILS ABSOLUTE AUTO 6.43 K/mm3 (1.96-9.15); NEUTROPHILS PERCENT AUTO 91 % (41-73); Platelet Count 188 K/mm3 (150-400); RDW Coefficient Variation 17.2 % (11.7-14.2); RDW Standard Deviation 55.3 fL (35.1-46.3); Red Blood Cell Count 2.77 M/mm3 (3.80-5.20); White Blood Cell Count 7.04 K/mm3 (4.00-11.30)
[2019-05-13 04:41] LABS: Anion Gap 6 mmol/L (6-16); Blood Urea Nitrogen 12 mg/dL (8-24); CO2, Blood 31 mmol/L (21-32); Calcium, Blood 8.4 mg/dL (8.5-10.1); Chloride, Blood 109 mmol/L (98-108); Creatinine, Blood 0.86 mg/dL (0.40-1.00); Glomerular Filtration Rate >60 (60-); Glucose, Blood 114 mg/dL (70-99); Magnesium, Blood 1.8 mg/dL (1.6-2.4); Phosphorus, Blood 3.2 mg/dL (2.5-4.9); Potassium, Blood 3.3 mmol/L (3.5-5.5); Sodium, Blood 146 mmol/L (136-145)
--- NOTE | 2019-05-13 06:40 | NUR ---
Shift Summary: Patient slept well throughout shift, continues to rouse easily to verbal stimuli. No further c/o pain, routine oxycontin given early in shift. No further c/o anxiety following x1 prn PO ativan given early in shift. No changes to vent settings throughout shift, remains on SIMV 16/450/5/45%, O2-93-98%, VSS. Bynum cath remains patent and intact, draining slightly cloudy yellow urine. Morning labs showed K+ of 3.3, Hgb of 7.2, no s/s of bleeding throughout shift. Call placed to Dr. Paredes, received orders for KCl 40meq IV x1, stool guaic, and for repeat H+H at 1200. Appears calm and comfortable at this time. Report given to day shift RN.
--- NOTE | 2019-05-13 07:30 | NUR ---
ASSUMED CARE OF PATIENT; SEE ASSESSMENT CHARTING FOR DETAILS. PATIENT AWAKE; ROUSES EASILY. C/O BACK (CHRONIC) PAIN (12/16); WILL MEDICATE WITH PO PAIN MEDS. PASSING FLATUS BUT NO STOOL; ORDER FOR STOOL SPEC. TO CHECK FOR OCCULT BLOOD; TO HAVE REPEAT H&H @ NOON. CONT. TO RECEIVE LR AT 100ML/HR. REMAINS WITH LOWGRADE TO NO FEVER; DENIES CHILLS, ETC.
--- NOTE | 2019-05-13 09:30 | NUR ---
DR. COREAS HERE; SEE ORDERS.
--- NOTE | 2019-05-13 12:10 | NUR ---
RN COLLECTED LAB SPECIMEN FROM PATIENTS' MEDIPORT WITHOUT DIFFICULTY; GIVEN TO GUIDE ALPINE. TO SEND TO LAB.
--- NOTE | 2019-05-13 12:20 | NUR ---
EXTRA PAIN MED. GIVEN FOR BACK PAIN (8/10).
[2019-05-13 12:25] LABS: Hematocrit 27.2 % (33.0-51.0)
--- NOTE | 2019-05-13 13:45 | NUR ---
H&H RESULTS IMPROVED (8 AND 27.2); RN INFORMED DR. CHANEL; NO NEW ORDERS.
--- NOTE | 2019-05-13 18:00 | NUR ---
SUMMARY: NO ACUTE CHANGES T/O DAY; TRACH REMAINS CONNECTED TO VENT.; NO VENT CHANGES T/O THE DAY. LUNGS REMAINS COARSE WITH CRACKLES; SUCTIONING COPIOUS AMOUNTS OF SECRETIONS. HR AND TEMP. WNL'S; BP MOD. ELEVATED WHEN PATIENT ANXIOUS OR PAINFUL; ATIVAN PO GIVEN WELL EXTRA PAIN MED. T/O DAY. PATIENTS' FATHER IN/OUT OF ROOM; VISITS FOR A FEW HOURS AND THEN LEAVES A FEW HOURS.
--- NOTE | 2019-05-13 20:41 | NUR ---
ASSUMPTION OF CARE ASSUMED CARE OF PT @ 1900, PT RESTING IN BED, AROUSABLE, GESTURES AND MOUTHS WORDS, ANSWERING QUESTIONS APPROPRIATELY. PT COMPLAINNG OF 7/10 BACK/GENERALIZED PAIN, SCHEDULED PAIN MEDICATION PROVIDED. LS COARSE WITH MILD INSPIRATORY WHEEZES. MODERATE AMOUNT OF THICK WHITE TO YELLOW SECRETIONS FROM TRACH, PT ABLE TO VERBALIZE WHEN SUCTIONING IS NEEDED. MONITOR SHOWS NSR, HR 80'S, MAPS > 70. ABDOMEN MILDLY DISTEND, PT DENIES ABD PN, TOLERATING PO FLUIDS, SWALLOWING PO MEDICATIONS WHOLE. PT ABLE TO ASSIST IN ORAL CARE, APPLIED MOUTH MOISTURIZER DESIRED. ZENDEJAS IN PLACE DRAINING CLEAR YELLOW URINE. PG TO NADER INFUISNG LR @ 100ml/hr, MEDIPORT TKO.
[2019-05-14 03:23] LABS: Hematocrit 24.5 % (33.0-51.0); Hemoglobin 7.2 g/dL (11.5-16.0); Mean Corpuscular HGB 26.2 pg (26.0-34.0); Mean Corpuscular HGB Conc 29.4 g/dL (31.5-36.5); Mean Corpuscular Volume 89 fL (80-100); Mean Platelet Volume 12.1 fL (9.1-12.4); Platelet Count 207 K/mm3 (150-400); RDW Coefficient Variation 17.2 % (11.7-14.2); Red Blood Cell Count 2.75 M/mm3 (3.80-5.20); White Blood Cell Count 5.75 K/mm3 (4.00-11.30)
[2019-05-14 03:38] LABS: Albumin, Blood 1.6 g/dL (3.4-5.0); Anion Gap 3 mmol/L (6-16); Blood Urea Nitrogen 13 mg/dL (8-24); Bun/Creatinine Ratio 15.9 (12.0-20.0); CO2, Blood 33 mmol/L (21-32); Calcium, Blood 8.5 mg/dL (8.5-10.1); Chloride, Blood 108 mmol/L (98-108); Creatinine, Blood 0.82 mg/dL (0.40-1.00); Glomerular Filtration Rate >60 (60-); Glucose, Blood 81 mg/dL (70-99); Phosphorus, Blood 2.1 mg/dL (2.5-4.9); Sodium, Blood 144 mmol/L (136-145)
--- NOTE | 2019-05-14 04:11 | NUR ---
CALL TO DR GLASS REGARDING MORNING LABS (K- 3.0, PHOS- 2.1, HGB- 7.2) ORDER FOR 30mmol K-PHOS IV x1.
--- NOTE | 2019-05-14 06:04 | NUR ---
SHIFT SUMMARY NO ACUTE CHANGES OVERNIGHT, PT SLEPT WELL THROUGH SHIFT, REMAINS ON VENT PER TRACH SET TO SIMV 16/450 PS 10/5 FIO2 40%, O2 SATURATIONS REMAINED ABOVE 90% T/O SHIFT, LS COARSE T/O. MONITOR SHOWS NSR, HR 70'S-80'S. PT AFEBRILE T/O SHIFT. BOWEL TONES HYPOACTIVE, TEQUILA BM THIS SHIFT, PT TOLERATED PO INTAKE AND SWALLOWED PM MEDICATIONS WHOLE. COMPLAINTS OF BACK/GENERAL PAIN AT BEGINNING OF SHIFT, SCHEDULED PAIN MEDICATION ADEQUATE FOR MANAGEMENT. ZENDEJAS IN PLACE, GOOD URINE OUTPUT THIS SHIFT. ELECTROLYTE REPLACEMENT PER MORNING LABS, 30mmol K-PHOS CURRENTLY INFUSING.
--- NOTE | 2019-05-14 07:15 | NUR ---
ASSUMED CARE AT 0700. REPORT FROM CONY PELAYO. PT RESTING IN BED. WAKES c VERBAL STIMULI. TRACH, VENT SETTINGS SIMV 16/450/5/40%. LUNGS COARSE THROUGHOUT, DIMINISHED IN BASES. PT MOUTHING THAT SHE IS SOB, RT AT BEDSIDE FOR BREATHING TX. RR HIGH 30'S. ABD ROUND, DISTENDED. BT X 4. PT c POOR APPETITE. REFUSING BREAKFAST. ZENDEJAS PATENT AND DRAINING TO GRAVITY. MEDIPORT AND POWERGLIDE PATENT AND INFUSING. WILL CONTINUE TO MONITOR.
--- NOTE | 2019-05-14 12:09 | NUR ---
DR GREENBERG AT BEDSIDE. PLAN FOR PLACING PT ON HOME VENT THIS AFTERNOON FOR A COUPLE HOURS.
--- NOTE | 2019-05-14 16:51 | NUR ---
SHIFT SUMMARY PT REMAINS ON HOSPITAL VENT, SIMV 16/450/5/45%. SHORT TRIAL ON HOME VENT. HIGH PEAK PRESSURE ALARMS. PLACED BACK ON HOSPITAL VENT BY RT. LUNGS COARSE, MODERATE, THICK WHITE/EMERSON SPUTUM. PT c POOR APPETITE TODAY, REFUSED TRAYS. DIETARY CONSULT, PT AGREES TO TRY CHOCOLATE SHAKES FOR DINNER. PT PARTICIPATED IN PT/OT TODAY. DANGLED AT BEDSIDE. ZENDEJAS PATENT AND DRAINING TO GRAVITY. NO BM TODAY. PERIAREA EXCORIATED. CLEANED. CREAM APPLIED. VSS. REPORT TO ONCOMING NURSE.
--- NOTE | 2019-05-14 20:55 | NUR ---
ASSUME CARE ASSUMED CARE OF PATIENT AT 1950. PATIENT IN BED, EYES CLOSED. SATS IN MID 90S ON OUR VENT. PATIENT ALERT WITH VERBAL STIMULI. LUNGS COARSE WITH DIMINISHED LUNG SOUNDS THROUGHOUT. PRODUCTIVE COUGH WITH WHITE/EMERSON THICK SPUTUM. AFEBRILE 97.8. RADIAL PULSES STRONG. PATIENT'S DAD BROUGHT HER FOOD THAT SHE IS EATING WELL 75% OF DINNER GONE. PATIENT'S ZENDEJAS DRAINING AND PATENT. HYPOACTIVE BOWEL TONES. WILL CONTINUE TO MONITOR.
[2019-05-15 01:25] LABS: Tobramycin, Trough 0.4 ug/mL (0.0-1.9)
[2019-05-15 05:15] LABS: BASOPHILS ABSOLUTE AUTO 0.02 K/mm3 (0.00-0.23); BASOPHILS PERCENT AUTO 0 % (0-2); EOSINOPHILS PERCENT AUTO 2 % (0-6); Hemoglobin 7.3 g/dL (11.5-16.0); IMMATURE GRAN ABSOLUTE AUTO 0.02 K/mm3 (0.00-0.10); IMMATURE GRAN PERCENT AUTO 0 % (0-1); LYMPHOCYTES ABSOLUTE AUTO 0.78 K/mm3 (0.84-5.20); LYMPHOCYTES PERCENT AUTO 14 % (21-46); MONOCYTES ABSOLUTE AUTO 0.22 K/mm3 (0.16-1.47); MONOCYTES PERCENT AUTO 4 % (4-13); Mean Corpuscular HGB 26.4 pg (26.0-34.0); Mean Corpuscular HGB Conc 29.2 g/dL (31.5-36.5); Mean Corpuscular Volume 90 fL (80-100); Mean Platelet Volume 12.2 fL (9.1-12.4); NEUTROPHILS PERCENT AUTO 79 % (41-73); Platelet Count 225 K/mm3 (150-400); RDW Coefficient Variation 17.4 % (11.7-14.2); RDW Standard Deviation 56.5 fL (35.1-46.3); Red Blood Cell Count 2.77 M/mm3 (3.80-5.20); White Blood Cell Count 5.54 K/mm3 (4.00-11.30)
[2019-05-15 05:36] LABS: Alanine Aminotransfer (ALT/SGP 8 U/L (12-78); Albumin, Blood 1.6 g/dL (3.4-5.0); Albumin/Globulin Ratio 0.5 (0.8-1.8); Alk Phos 61 U/L (50-136); Anion Gap 4 mmol/L (6-16); Aspartate Aminotrans (AST/SGOT 6 U/L (12-37); Bilirubin, Total 0.3 mg/dL (0.1-1.0); Blood Urea Nitrogen 9 mg/dL (8-24); Bun/Creatinine Ratio 12.1 (12.0-20.0); CO2, Blood 32 mmol/L (21-32); Calcium, Blood 8.2 mg/dL (8.5-10.1); Chloride, Blood 107 mmol/L (98-108); Creatinine, Blood 0.75 mg/dL (0.40-1.00); Globulin, Blood 3.4 g/dL (2.2-4.0); Glomerular Filtration Rate >60 (60-); Glucose, Blood 85 mg/dL (70-99); Phosphorus, Blood 2.6 mg/dL (2.5-4.9); Sodium, Blood 143 mmol/L (136-145)
--- NOTE | 2019-05-15 06:05 | NUR ---
SHIFT SUMMARY PATIENT REMAINS ALERT AND ORIENTED. SLEPT WELL THROUGHOUT NIGHT. PT REQUIRED SUCTIONING EVERY TWO HOURS AT LEAST. THICK WHITE SECRETIONS PRODUCED WITH COUGH. FI02 INCREASED TO 50% DUE TO DESATS. PATIENT STATES SHE FEELS "NOT GOOD". VSS. AFEBRILE. LUNGS COARSE THROUGHOUT. WILL CONTINUE TO MONITOR.
--- NOTE | 2019-05-15 08:59 | NUR ---
CARE ASSUMED CARE AND REPORT ASSUMED FROM NIRMALA PELAYO. PT SLEEPING BUT EASILY AWAKENED. CURRENTLY ON HOSPITAL VENT, SIMV, TV 450, PEEP 5, FIO2 50%. LUNG SOUNDS COARSE THROUGHOUT ALL SALDIVAR. PT NOW SITTING UP EATING BREAKFAST AND TAKING PILLS WITHOUT ASSISTANCE. PO POTASSIUM REPLACEMENT GIVEN. LR INFUSING AT 100 ML/HR PER ORDER. ZENDEJAS CATH REMAINS SECURED AND PATENT. GIOVANNA AREA IS EXCORIATED WITH SLUFFING SKIN. WILL MONITOR CLOSELY.
--- NOTE | 2019-05-15 11:25 | NUR ---
REASSESSMENT PT SLEEPING AT THIS TIME. ATE 60% OF HER BREAKFAST THIS AM WITHOUT PROMPTING AND TOLERATED TAKING HER MEDS. PT WAS PUT BACK ON HER HOME VENT FOR TRIAL AND WAS UNABLE TO MAINTAIN ADEQUATE O2 SATURATION SO SHE IS NOW ON THE HOSPITAL VENTILATOR. REMAINS ON SIMV, TV 450, PEEP 5, FIO2 50%. LUNG SOUNDS REMAIN COARSE. PT REFUSING TO HAVE BEDBATH AND LINEN CHANGE AT THIS TIME. WILL ENCOURAGE PT TO RECIEVE BEDBATH THIS AFTERNOON. WILL CONTINUE TO MONITOR.
--- NOTE | 2019-05-15 16:21 | NUR ---
REASSESSMENT PT BACK ON HOME VENT AND TOLERATING WELL WITH 11L BLEED IN. VSS. NSR, HR 90S. PT TOLERATED EATING 2 CUPS SOUP THIS AFTERNOON. BEDBATH AND LINEN CHANGE COMPLETED. WORKED WITH PT. WILL CONTINUE TO MONITOR.
--- NOTE | 2019-05-15 17:20 | NUR ---
SHIFT SUMMARY PT ON HOME VENT SINCE THIS AFTERNOON WITH 10L BLEED IN. MIV LR DISCONTINUED. PT ATE 60% BREAKFAST AND HAD 2 CUPS OF SOUP TODAY. BEDBATH AND LINEN CHANGE COMPLETED. PT SLEEPING NOW. CONTINUES TO HAVE LARGE AMOUNTS OF SECRETIONS FROM TRACH. TRACH DRESSING CHANGED TODAY. VSS ENTIRE SHIFT WITH NSR, HR 90S AND BP WNL. AFEBRILE. WORKED WITH PT AND WAS ABLE TO DANGLE AT SIDE OF BED. WILL GIVE BEDSIDE, HANDOFF TO AMANDA PELAYO.
--- NOTE | 2019-05-15 20:00 | NUR ---
ASSUMPTION OF CARE ASSUMED CARE OF PT @ 1900, PT AWAKE IN BED VISITING AND INTERACTING WITH FAMILY/VISITORS, ORIENTED TO SELF, MONTH, FAMILY AND FOLLOWING DIRECTIONS, ANSWERING QUESTIONS APPROPRIATELY. LS CLEAR IN THE UPPER LOBES, COARSE TO DIM IN THE LOWER LOBES. PT ON VENTILATOR PER TRACH, VENT SET TO SIMV 16/450 PS 12 PEEP 5 FIOW 50%, MODERATE AMOUNT OF THICK WHITE/YELLOW SECRETIONS, SOME RED STREAKS NOTED. MONITOR SHOWS NSR, HR 70'S-80'S. DISTENTION NOTED IN THE ABDOMEN, BOWEL TONES HYPOACTIVE, PT TOLERATING PO INTAKE, SWALLOWS PILLS WHOLE AND EATS INDEPENDENTLY. SCHEDULED PAIN MEDICATION PROVIDED FOR COMPLAINTS BACK PAIN.
--- NOTE | 2019-05-16 06:17 | NUR ---
SHIFT SUMMARY NO ACUTE CHANGES OVERNIGHT, PT REMAINS ON VENT, SIMV 16/450 PS 12 PEEP 5 FIO2 50%, MODERATE AMOUNT OF SECRETIONS FROM TRACH. PT SLEPT WELL T/O SHIFT, AROUSABLE, BECAME SLIGHTLY AGITATED WITH SOME NURSING CARE DURING NIGHT. LS CLEAR TO COARSE. PT REMAINS IN NSR. IMPROVED PO INTAKE THIS SHIFT. PT COMPLAINED OF SOME PAIN DURING SHIFT, STS SHE WANTS THE "PAIN SHOT". INFORMED PT ONLY ORAL PAIN MEDICATION WAS ORDERED, PT WAS OKAY WITH TRYING ORAL MEDICATION AND RE-EVALUATING AFTER 1 HOUR, PT SLEEPING UPON RE-EVALUATION.
--- NOTE | 2019-05-16 08:50 | NUR ---
DR. PIERSON AT BEDSIDE. THIS AUTHOR REQUESTED ONE TIME ORDER FOR DILAUDID IV TO GET PAIN UNDER SONTROL SO DAIJA CAN PARTICIPATE IN THERAPY; VERBAL ORDER RECEIVED. LABS ORDERED FOR TOMORROW MORNING.
--- NOTE | 2019-05-16 12:13 | NUR ---
SUCTIONED TRACH FOR SMALL AMT BLOOD TINGED SPUTUM. O2 SAT 93% ON 50% FIO2. PT IS PULLING TV > 400.
--- NOTE | 2019-05-16 13:53 | NUR ---
CHANGED DRESSING ON R POSTERIOR BACK: CLEANSED WITH ALCOHOL SWAB, ALLOWED TO AIR DRY. APPLIED 3M BARRIER, ALLOWED TO AIR DRY. COVERED INSERTION SITE WITH 2 STERILE 4X4 GAUZE FOLDED AND COVERED WITH LARGE TEGADERM TRANSPARENT DRESSING. PT TOLERATED WELL.
--- NOTE | 2019-05-16 16:26 | NUR ---
PATIENT HAS REFUSED ORAL CARE ALL DURING THIS SHIFT, STATING THAT PEROXIDE SOLUTION "HURTS MY MOUTH." OFFERED ALTERNATIVES LIKE MOUTHWASH OR REGUALR TOOTHPASTE, BUT SHE DECLINED EACH OFFERING. ALSO STATED SHE WAS TOO TIRED FOR BED BATH TODAY.
--- NOTE | 2019-05-16 17:39 | NUR ---
SHIFT SUMMARY: A&O X 3, PLEASANT. C/O CONSTANT 5-7/10 PAIN IN L FLANK AND SIDE, MANAGED WITH PRN OXYCODONE. WAS REQUESTING "A PAIN SHOT", BUT DR. GREENBERG DECLINED CITING LABILE BP. SWITCHED FROM HOSPITAL VENT TO HOME VENT WITH CONCURRING DROP IN O2 SAT TO 88-89%, REQUIRING HIGHER O2 FLOW TO 7-9 L/MIN. ABD DISTENDED, STATED IS PASSING FLATUS BUT NO BM SINCE 05/08, AND STATED THIS IS NORMAL FOR HER. ABLE TO CHANGE POSITION IN BED INDEPENDENTLY. SINUS RHYTHM WITH HR 80-105, AFEBRILE. IS HOPING FOR STATUS CHANGE IN PREPARATION FOR D/C HOME SOON.
--- NOTE | 2019-05-16 18:39 | NUR ---
SPOKE WITH DR. GREENBERG BY TELEPHONE TO REPORT THAT PATIENT IS REQUIRING 8-9 L/MIN OF O2 TO MAINTAIN SATS AT 90%; VERBALIZED UNDERSTANDING. ALSO PATIENT REQUESTING TO HAVE ZENDEJAS REMOVED; PROVIDER STATED OK TO ORDER TO D/C ZENDEJAS.
--- NOTE | 2019-05-16 19:07 | NUR ---
D/C'D ZENDEJAS CATHETER WITHOUT INCIDENT, PT TOLERATED WELL. HAD TO IMMEDIATELY USE THE BEDPAN AND PROCEEDED TO VOID 700 ML CLEAR, YELLOW URINE. REQUIRED COMPLETE LINEN CHANGE. ALSO HAD TO SUCTION TRACH X 2, WITH MODERATE AMOUNT OF PINK-TINGED SPUTUM, WITH RESULTING O2 SAT 92% ON 11 L/MIN. REDUCED O2 BACK TO 9 L/MIN, O2 SAT STAYED AT 90%.
--- NOTE | 2019-05-16 21:00 | NUR ---
ASSUMPTION OF CARE ASSUMED CARE OF PT @ 1900. PT O2 SATURATIONS DECREASING TO 85-87%, PT ON HOME VENT, VCS 16/450 PS 12 PEEP 5 WITH O2 FLOW IN @ 10L, LS COARSE WITH CRACKLES IN THE BASES. RT ADMINISTERED BREATHING TREATMENT, INCREASED O2 FLOW IN TO 15L, PT STS HAS SOB AT BASELINE, DENIES ANY INCREASE IN SOB. O2 SATURATIONS INCREASED TO 92-93%. CALL PLACED TO JERONIMO CHAPA TO PLACE PT ON HOSPITAL VENTILATOR IF O2 SATURAIONS CONTINUE TO DETERIORATE. PT A&O x4, ANSWERING QUESTIONS APPROPRIATELY, ASSISTS IN NURSING CARE. COMPLAINS OF ABD/FLANK/BACK PAIN, ONE TIME DOES OF FENTANYL PROVIDED, EXPLAINED NEED TO AVOID USE OF IV PAIN MEDICATION AND IMPORTANCE OF CONTROLING PAIN WITH PO MEDICATIONS. PT HAS GOOD PO INTAKE, ABD DISTENDED AND FIRM, SCHEDULED AND PRN BOWEL CARE PROVIDED, PT DECLINED SUPPOSITORY, STS SHE WILL HAVE BM TOMORROW.
--- NOTE | 2019-05-17 01:00 | NUR ---
PTS O2 SATURATIONS DECREASING TO 88-89%, HOME VENTALITOR ALARMING FOR HIGH PEAK PRESSURES, PT SUCTIONED, SUCTION TUBING CHANGED WITH NO IMPROVEMENT. RT TO ROOM, PLACED PT ON HOSPITAL VENT 16/450 PS 12 PEEP 5 FIO2 55%, PTS O2 SATURATIONS INCREASED TO 91%. DR GREENBERG ON THE UNIT AND NOTIFIED OF CHANGE TO HOSPITAL VENT.
[2019-05-17 03:56] LABS: BASOPHILS ABSOLUTE AUTO 0.01 K/mm3 (0.00-0.23); BASOPHILS PERCENT AUTO 0 % (0-2); EOSINOPHILS ABSOLUTE AUTO 0.22 K/mm3 (0.00-0.68); EOSINOPHILS PERCENT AUTO 3 % (0-6); Hematocrit 25.5 % (33.0-51.0); Hemoglobin 7.4 g/dL (11.5-16.0); IMMATURE GRAN ABSOLUTE AUTO 0.03 K/mm3 (0.00-0.10); IMMATURE GRAN PERCENT AUTO 0 % (0-1); LYMPHOCYTES PERCENT AUTO 13 % (21-46); MONOCYTES ABSOLUTE AUTO 0.27 K/mm3 (0.16-1.47); MONOCYTES PERCENT AUTO 4 % (4-13); Mean Corpuscular Volume 90 fL (80-100); Mean Platelet Volume 11.9 fL (9.1-12.4); NEUTROPHILS ABSOLUTE AUTO 5.79 K/mm3 (1.96-9.15); NEUTROPHILS PERCENT AUTO 80 % (41-73); Platelet Count 270 K/mm3 (150-400); RDW Coefficient Variation 17.2 % (11.7-14.2); RDW Standard Deviation 55.9 fL (35.1-46.3); Red Blood Cell Count 2.85 M/mm3 (3.80-5.20); White Blood Cell Count 7.22 K/mm3 (4.00-11.30)
[2019-05-17 04:12] LABS: Alanine Aminotransfer (ALT/SGP 9 U/L (12-78); Albumin, Blood 1.8 g/dL (3.4-5.0); Albumin/Globulin Ratio 0.5 (0.8-1.8); Alk Phos 62 U/L (50-136); Anion Gap 1 mmol/L (6-16); Aspartate Aminotrans (AST/SGOT 11 U/L (12-37); Bilirubin, Total 0.2 mg/dL (0.1-1.0); Blood Urea Nitrogen 6 mg/dL (8-24); Bun/Creatinine Ratio 6.8 (12.0-20.0); CO2, Blood 41 mmol/L (21-32); Calcium, Blood 8.4 mg/dL (8.5-10.1); Chloride, Blood 104 mmol/L (98-108); Creatinine, Blood 0.88 mg/dL (0.40-1.00); Globulin, Blood 3.6 g/dL (2.2-4.0); Glomerular Filtration Rate >60 (60-); Glucose, Blood 85 mg/dL (70-99); Potassium, Blood 3.2 mmol/L (3.5-5.5); Sodium, Blood 146 mmol/L (136-145); Total Protein, Blood 5.4 g/dL (6.4-8.2)
[2019-05-17 04:21] LABS: Percent Saturation 23.9 % (15.0-50.0)
--- NOTE | 2019-05-17 06:22 | NUR ---
SHIFT SUMMARY PT TRANSITIONED TO HOSPITAL VENT (SEE NURSES NOTE), VENT SET TO SIMV 16/450 PS 12 PEEP 5 FIO2 INCREASED TO 65% TO MAINTAIN OXYGEN SATURATIONS ABOVE 90%. LS ARE COARSE WITH CRACKLES TO THE BASES. MONITOR SHOWS SINUS RHYTHM, SOME OCCASIONAL TACHYCARDIA DURING SHIFT, HR 90'S-105. GOOD PO INTAKE, NO BM THIS SHIFT. PT COMPLAINS OF PAIN IN ABD/FLANK/BACK, REPOSITIONED TOLERATED TO INCREASE COMFORT, PRN PAIN MEDICATION PROVIDED. MORNING LABS SHOWED LOW POTASSIUM, KCL 40 MEQ IV ORDERED, FIRST BAG INFUSING AT THIS TIME.
--- NOTE | 2019-05-17 07:22 | NUR ---
ASSUMED CARE OF PATIENT. IS LYING IN BED, HOB < 30 DEGREES. HOSPITAL VENTILATOR IN USE WITH SETTINGS OF 16/450/65%/PEEP 5. PER PREVIOUS RN, PT WAS REQUIRING 15 L/MIN O2 BLEED IN AND WAS UNABLE TO MAINTAIN SATURATIONS > 86% ON HER HOME VENT. CURRENT O2 SAT IS 98% ON 65%; REDUCED O2 TO 60% AND WILL CONTINUE TO TITRATE DOWN PT TOLERATES. SUCTIONED TRACH X 2 WITH THICK EMERSON SECRETIONS.
--- NOTE | 2019-05-17 07:37 | NUR ---
SPOKE TO Araceli LOGAN RT, REQUESTED THAT PT BE PLACED ON HER HOME VENT SOMETIME THIS MORNING; VERBALIZED UNDERSTANDING.
--- NOTE | 2019-05-17 07:58 | NUR ---
O2 SAT 96% ON 60% FIO2. DECREASED O2 TO 50% WITH RESULTING SATURATION AT 93%.
--- NOTE | 2019-05-17 09:57 | NUR ---
PT REMAINS ON HOSPTIAL VENTILATOR WITH SETTINGS SIMV 16/450/50% FIO2/5 PEEP. FREQUENTLY DESATS TO 88%. SUCTIONED PT X 2 VIA TRACH WITH RETURN OF THICK YELLOW/EMERSON SECRETIONS. TOLERATED WELL.
--- NOTE | 2019-05-17 11:24 | NUR ---
DR. GREENBERG AT BEDSIDE. WILL CONTINUE TO WATCH FOR FEVERS. ASKED THAT WE KEEP HER ON HOSPITAL VENT FOR NOW. WILL START IVF.
--- NOTE | 2019-05-17 13:17 | NUR ---
SPOKE TO DR. GREENBERG BY PHONE, REPORTED TEMP OF 101.1 AND TACHYCARDIA IN 140'S. BP FINE AT THIS TIME. RECEIVED VERBAL ORDER FOR FLU SWAB AND OK TO CHANGE TYLENOL FROM ID TO PO.
--- NOTE | 2019-05-17 13:39 | NUR ---
INCREASED O2 TO 60% FIO2 PT SATS STAYING 87-88%.
[2019-05-17 14:12] LABS: Influenza A Negative (NEGATIVE); Influenza B Negative (NEGATIVE)
--- NOTE | 2019-05-17 16:50 | NUR ---
FEVER AND TACHYCARDIA RESOLVED, HR NOW HIGH 90'S, TEMP 97.8 AFTER TYLENOL. FLU SWAB NEGATIVE. FIO2 INCREASED TO 60% AND PT'S O2 SAT IS NOW STEADILY 95%. PT RESTING COMFORTABLY IN BED.
--- NOTE | 2019-05-17 17:35 | NUR ---
SPOKE TO DR. GREENBERG BY PHONE REGARDING PT'S LABILE BP, CURRENTLY 83/46, HR 106. RECEIVED TELEPHONE ORDER FOR ONE LITER NS BOLUS.
--- NOTE | 2019-05-17 18:17 | NUR ---
SHIFT SUMMARY: HYPOTENSIVE 80'S/40-50'S, HR 80-100; NS BOLUS INFUSING. ABLE TO EAT SMALL AMNT DINNER, SLEEPY AT TIMES. VENT SETTINGS: SIMV 16/450/PS 12/50% FIO2/PEEP 5; RR 15-22, DENIES SOB AND DIFFICULTY BREATHING. THINKS SHE MAY NEED TO HAVE A BM TONIGHT. VOIDING USING BEDPAN WITH ASSIST. MEDIPORT NEEDLE, CAP, AND DRESSING CHANGED TODAY. AFEBRILE AT THIS TIME. RESTING COMFORTABLY.
--- NOTE | 2019-05-17 21:00 | NUR ---
ASSUMPTION OF CARE ASSUMED CARE OF PT @ 1900. PT SLEEPING IN BED, AROUSABLE TO VERBAL STIMULI BUT VERY DROWSY. ANSWERING QUESTIONS APPROPRIATELY, [place]. PT AFEBRILE. LS COARSE WITH INSPIRATORY WHEEZE IN UPPER LOBS, CRACKLES IN THE BASES. MONITOR SHOWS NSR TO SINUS TACH, PT HYPOTENSIVE. PT TO BED HOUSE, ATTEMPTED BM BUT STS UNABLE, BOWEL CARE PROVIDED. PT TOLERATING PO INTAKE. CALL PLACED TO DR GREENBERG REGARDING PTS LOW BP, ORDER FOR 1L NS BOLUS IV ONE TIME. IF BP NOT IMPROVED WITH LITER BOLUS, LEVOPHED IS TO BE STARTED.
[2019-05-18 03:33] LABS: Base Excess Venous 14.7 mmol/L; Bicarbonate Venous 36.9 mmol/L (24.0-30.0); PCO2 Venous 58.3 mmHg (38-42); PO2 Venous 42 mmHg (38-42); pH Blood Venous 7.43 (7.34-7.37)
[2019-05-18 03:41] LABS: BASOPHILS ABSOLUTE AUTO 0.03 K/mm3 (0.00-0.23); BASOPHILS PERCENT AUTO 0 % (0-2); EOSINOPHILS ABSOLUTE AUTO 0.22 K/mm3 (0.00-0.68); EOSINOPHILS PERCENT AUTO 3 % (0-6); Hematocrit 22.2 % (33.0-51.0); Hemoglobin 6.3 g/dL (11.5-16.0); IMMATURE GRAN ABSOLUTE AUTO 0.05 K/mm3 (0.00-0.10); IMMATURE GRAN PERCENT AUTO 1 % (0-1); LYMPHOCYTES ABSOLUTE AUTO 0.76 K/mm3 (0.84-5.20); LYMPHOCYTES PERCENT AUTO 9 % (21-46); MONOCYTES ABSOLUTE AUTO 0.31 K/mm3 (0.16-1.47); MONOCYTES PERCENT AUTO 4 % (4-13); Mean Corpuscular HGB 25.9 pg (26.0-34.0); Mean Corpuscular HGB Conc 28.4 g/dL (31.5-36.5); Mean Corpuscular Volume 91 fL (80-100); Mean Platelet Volume 12.4 fL (9.1-12.4); NEUTROPHILS PERCENT AUTO 85 % (41-73); Platelet Count 243 K/mm3 (150-400); RDW Coefficient Variation 17.4 % (11.7-14.2); RDW Standard Deviation 58.1 fL (35.1-46.3); Red Blood Cell Count 2.43 M/mm3 (3.80-5.20); White Blood Cell Count 8.87 K/mm3 (4.00-11.30)
[2019-05-18 04:02] LABS: Anion Gap 1 mmol/L (6-16); Blood Urea Nitrogen 7 mg/dL (8-24); Bun/Creatinine Ratio 9.2 (12.0-20.0); CO2, Blood 38 mmol/L (21-32); Calcium, Blood 7.9 mg/dL (8.5-10.1); Chloride, Blood 107 mmol/L (98-108); Creatinine, Blood 0.76 mg/dL (0.40-1.00); Glomerular Filtration Rate >60 (60-); Glucose, Blood 83 mg/dL (70-99); Potassium, Blood 3.9 mmol/L (3.5-5.5); Sodium, Blood 146 mmol/L (136-145)
[2019-05-18 04:20] LABS: Stool Occult Blood Guaiac 1 Neg (Neg)
--- NOTE | 2019-05-18 06:34 | NUR ---
SHIFT SUMMARY PT SLEPT WELL THROUGH THE NIGHT, ALERT AND ORIENTED, COMPLAINTS OF NOT FEELING WELL/GENERAL MALAISE. PT HAS EXERTIONAL SOB WITH INCREASED HR WITH GETTING TO BED HOUSE AND REPOSITIONING IN BED, REQUIRING INCREASE OF FIO2, SLOW RECOVERY. PT HYPOTENSIVE AT BEGINNING OF SHIFT, 1L NS BOLUS INFUSTED, BP IMPROVED AND MAINTAINED THROUGH MOST OF SHIFT. ABDOMEN REMAINS DISTENDED, PT HAD ONE SMALL BOWEL MOVEMENT AT BEGINNING OF SHIFT, PASSING FLATUS. DR GREENBERG CALLED REGARDING MORNING LABS (HGB 6.3, OCCULT BLOOD STOOL NEGATIVE) ORDERS TO TRANSFUSE ONE UNITE OF PRBC, CURRENTLY INFUSING, BP IMPROVING.
--- NOTE | 2019-05-18 07:20 | NUR ---
ASSUMED CARE OF PT AT 0700. REPORT FROM CONY PELAYO. PT RESTING IN BED. WAKES c VERBAL STIMULI. A&OX 3. VENT SETTINGS SIMV 16/450/12/50%. ATTEMPTED TO DECREASE FIO12, PT C/O SOB AND O2 SATS DECREASED TO 88%. WILL CONTINUE AT 50% AT THIS TIME. O2 SATS HIGH 90'S. PT TACHYCARDIC AND TACHYPNEIC c EXERTION, ALSO C/O SOB c EXERTION. LUNGS COARSE THROUGHOUT c RHONCI. THICK WHITE/EMERSON SPUTUM SUCTIONED THROUGH TRACH. PRBCS INFUSING VIA MEDIPORT. WILL CONTINUE TO MONITOR.
--- NOTE | 2019-05-18 09:52 | NUR ---
DR PIERSON AT BEDSIDE FOR ASSESSMENT. PLAN FOR REPEAT H&H AND BMP. MONITOR FOR NEED FOR TRANSFUSION. PROOF PRESS OPERATOR COORDINATING em [place] IN [place]. WILL CONTINUE TO MONITOR.
[2019-05-18 10:57] LABS: Hematocrit 26.9 % (33.0-51.0); Hemoglobin 7.9 g/dL (11.5-16.0)
[2019-05-18 11:07] LABS: Anion Gap 2 mmol/L (6-16); Blood Urea Nitrogen 6 mg/dL (8-24); Bun/Creatinine Ratio 7.4 (12.0-20.0); CO2, Blood 36 mmol/L (21-32); Chloride, Blood 107 mmol/L (98-108); Creatinine, Blood 0.81 mg/dL (0.40-1.00); Glomerular Filtration Rate >60 (60-); Glucose, Blood 89 mg/dL (70-99); Sodium, Blood 145 mmol/L (136-145)
--- NOTE | 2019-05-18 12:35 | NUR ---
Spiritual care visit conducted. Patient is resting but awakens to her name. I sit down with patient's fahter, Paulo, and check in with him. He expresses that he is doing ok but worn out and ready for patient to come home. He states that the patient is slowly getting back to herself. I encourage self-care for Paulo and talk about care-golf professional burn out. He tells me that he just doesn't trust others to take as good of care of patient as he does and so he prefers to do it himself. I listen empathically and provide prayer for patient and Paulo. They both voice appreciation for the visit.
--- NOTE | 2019-05-18 13:56 | NUR ---
PHYSICAL THERAPY AT BEDSIDE WORKING WITH PATIENT.
--- NOTE | 2019-05-18 17:02 | NUR ---
SHIFT SUMMARY PT REMAINS ON HOSPITAL VENT SIMV 16/450/12/50%. UNABLE TO TITRATE FIO2 DOWN THIS SHIFT D/T PT SOB AND O2 SATS. O2 SATS REMAIN >95% AT THIS TIME. PT c MODERATE THICK WHITE, EMERSON SECRETIONS. LUNGS COARSE c RHONCHI THROUGHOUT. PT c INCREASED APPETITE TODAY, ATE PARTIAL MEAL THAT FATHER BROUGHT FOR HER. CONTINUED TO ENCOURAGE PO FLUIDS, POOR INTAKE. PT WORKED c PT TODAY, DANGLED AT SIDE OF BED. ASSEMBLY MECHANIC CONTINUED TO MAKE CONNECTIONS c GENEVIEVE IN [place]. REPORT TO ONCOMING NURSE.
--- NOTE | 2019-05-18 21:21 | NUR ---
START OF SHIFT: BEDSIDE REPORT FROM ERNA PELAYO. PT SLEEPING SOUNDLY. VSS. FATHER WAS SLEEPING ALSO IN CHAIR AT BEDSIDE. PT ON HOSPITAL VENT SET ON SIMV: 16/450/PS 12/PEEP 5.0/FiO2 50%. PT AWAKENED EASILY DURING INITIAL ASSESSMENT AND WAS VERY CONVERSIVE USING LIP READING AND ALSO WRITING ON PAPER. PT SHOWED PICTURES ON HER PHONE OF HER YOUNGER YEARS AND WAS GIVEN TIME TO TALK (CONVERSE). PT REQUIRED SUCTIONING OF COPIUOUS AMOUNT OF LIGHT YELLOW/TANISH SPUTUM. PT ASSISTED ONTO BEDPAN AND WAS PROVIDED FRESH MAKI AND PAJAMA CHANGE. PT CURRNELTY LYING ON LEFT SIDE SLEEPING. WILL CONTINUE TO MONITOR.
--- NOTE | 2019-05-18 23:25 | NUR ---
INNER CANNULA CHANGED BY RT, TRACH CARE AND GAUZE CHANGED.
--- NOTE | 2019-05-19 02:55 | NUR ---
UPDATE: PT AWAKENED AT 0150. PT DENIED NEEDS AND REFUSED ORAL CARE. PT SLEEPING WELL THIS NOC. VSS. CALL LIGHT WITHIN REACH. PT'S FATHER REMAINS IN ROOM IN CHAIR-BED.
[2019-05-19 04:37] LABS: BASOPHILS ABSOLUTE AUTO 0.02 K/mm3 (0.00-0.23); BASOPHILS PERCENT AUTO 0 % (0-2); EOSINOPHILS ABSOLUTE AUTO 0.23 K/mm3 (0.00-0.68); EOSINOPHILS PERCENT AUTO 3 % (0-6); Hematocrit 25.8 % (33.0-51.0); Hemoglobin 7.5 g/dL (11.5-16.0); IMMATURE GRAN ABSOLUTE AUTO 0.03 K/mm3 (0.00-0.10); IMMATURE GRAN PERCENT AUTO 0 % (0-1); LYMPHOCYTES ABSOLUTE AUTO 0.83 K/mm3 (0.84-5.20); LYMPHOCYTES PERCENT AUTO 11 % (21-46); MONOCYTES ABSOLUTE AUTO 0.33 K/mm3 (0.16-1.47); MONOCYTES PERCENT AUTO 5 % (4-13); Mean Corpuscular HGB 25.9 pg (26.0-34.0); Mean Corpuscular HGB Conc 29.1 g/dL (31.5-36.5); Mean Corpuscular Volume 89 fL (80-100); NEUTROPHILS ABSOLUTE AUTO 5.87 K/mm3 (1.96-9.15); NEUTROPHILS PERCENT AUTO 80 % (41-73); Platelet Count 248 K/mm3 (150-400); RDW Coefficient Variation 18.2 % (11.7-14.2); RDW Standard Deviation 59.2 fL (35.1-46.3); White Blood Cell Count 7.31 K/mm3 (4.00-11.30)
[2019-05-19 04:56] LABS: Alanine Aminotransfer (ALT/SGP 7 U/L (12-78); Albumin, Blood 1.7 g/dL (3.4-5.0); Albumin/Globulin Ratio 0.5 (0.8-1.8); Alk Phos 64 U/L (50-136); Anion Gap 1 mmol/L (6-16); Aspartate Aminotrans (AST/SGOT 9 U/L (12-37); Bilirubin, Total 0.3 mg/dL (0.1-1.0); Blood Urea Nitrogen 7 mg/dL (8-24); Bun/Creatinine Ratio 8.2 (12.0-20.0); CO2, Blood 37 mmol/L (21-32); Calcium, Blood 8.2 mg/dL (8.5-10.1); Chloride, Blood 106 mmol/L (98-108); Creatinine, Blood 0.85 mg/dL (0.40-1.00); Globulin, Blood 3.5 g/dL (2.2-4.0); Glomerular Filtration Rate >60 (60-); Glucose, Blood 85 mg/dL (70-99); Potassium, Blood 3.7 mmol/L (3.5-5.5); Sodium, Blood 144 mmol/L (136-145); Total Protein, Blood 5.2 g/dL (6.4-8.2)
[2019-05-19 13:41] LABS: Tobramycin, Trough <0.3 ug/mL (0.0-1.9)
--- NOTE | 2019-05-19 15:00 | NUR ---
DR SOLIS: PROVIDER AT BEDSIDE TO WM PT. HE WOULD LIKE TO TRY HER HOME VENT THIS EVENING, RT WANDA AWARE. NYSTATIN ORDERED FOR C/O "YEAST & ITCHING" TO GIOVANNA AREA. WILL CONTINUE TO MONITOR & UPDATE NEEDED.
--- NOTE | 2019-05-19 17:58 | NUR ---
SHIFT SUMMARY: PT CONTINUES ON HOME VENT, SETTINGS SIMV 16/450/5 & 10L O2 BLEED-IN. LS ARE COARSE T/O. PT CURRENTLY HAVING ANXIETY R/T HOME VENTILATOR. SHE IS ENCOURAGED TO RELAX & UNDERSTAND THAT HER NUMBERS ARE THE SAME ON THE HOSPITAL VENT. SHE RESPONDS WELL TO THIS & PRN ATIVAN IS GIVEN PER EMAR. MONITOR SHOWS SR-ST W/ HR 80-110s. BP STABLE, SLIGHT HYPOTENSION THIS SHIFT IMPROVED W/ INCREASED PO FLUID INTAKE & REPOSITIONING OF BP CUFF. NO GI/ COMPLAINTS. WILL CONTINUE TO MONITOR & REPORT OFF TO ONCOMING RN.
--- NOTE | 2019-05-19 19:00 | NUR ---
REPORT BEDSIDE REPORT RECEIVED FROM PIERCE OGDEN. PT RESTING IN BED, FAMILY AT BEDSIDE. PT ON HOME VENT WITH SETTINGS 16/450/5/10L 02 BLEED-IN. VS STABLE; B/P 92/52 WITH MAP 65, HR 108, RR 30, TEMP 98.1, SAT 92%. MONITOR IN PLACE WITH ST. PT C/O PAIN AT 9/10 TO LT SIDE, RN STATES WILL GIVE PAIN MEDICATION WHEN ABLE. PT REPOSITIONS SELF IN BED WITH MIN ASSIST. NS INFUSING @ 100CC/HR VIA RT CHEST MEDIPORT. PT INFORMED THIS RN WILL RETURN AFTER REVIEWING CHART/MEDS/ORDERS. BEDSIDE TABLE & CALL LIGHT IN REACH, WILL CONTINUE TO MONITOR PT THIS SHIFT.
--- NOTE | 2019-05-19 20:45 | NUR ---
PT RESTING IN BED, VISITORS AT BEDSIDE. PT PLEASANT, ANXIOUS ONLY WITH CARES. ASSESSMENT COMPLETED; HHR @ 100, NSR/ST, LUNGS COARSE THROUGHOUT, DIMINISHED IN BASES, PT ON HOME VENT WITH SETTINGS 16/450/5/50%, OXYGEN UP TO 15L/NC WITH CARES/TURNS THEN BACK TO 10L BLEED-IN, BOWEL SOUNDS PRESENT, ABDOMEN OBESE, SL FIRM, NONTENDER. MEDS GIVEN PO WITHOUT DIFFICULTY. PT DID OWN ORAL CARES WITH SET-UP ASSIST. PT USES BEDPAN WITH ASSIST, URINE YELLOW. NS @ 100cc/HR INFUSING VIA RT CHEST MEDIPORT. SKIN WITH SCATTERED BRUISING, REDNESS AND ITCHING TO GIOVANNA AREA AND BUTTOCKS PEELING, NYSTATIN CREAM APPLIED. BEDSIDE TABLE AND CALL LIGHT WITHIN REACH. WILL CONTINUE TO MONITOR PT THIS SHIFT.
--- NOTE | 2019-05-20 01:19 | NUR ---
RT IN ROOM FOR ROUTINE ROUNDS.
--- NOTE | 2019-05-20 02:00 | NUR ---
VENT ALARM R/T HIGH PEAK PRESSURE PT CONTINUES TO REST IN BED, ASLEEP AT THIS TIME. PT REMAINS ON HOME VENT WITH SAME SETTINGS OF 16/450/5/ 12L O2. VENT HAS FREQUENT ALARM R/T HIGH PEAK PRESSURE >50 AND AIR LEAK NOTED AROUND ET TUBE. RT MONY AWARE. PT SUCTIONED, HEAD/NECK REPOSITIONED, AND AIR ADDED BY MONY RT. AIR LEAK IMPROVED BUT PT CONTINUES TO ALARM HIGH PEAK PRESSURE AT TIMES. WILL CONTINUE TO MONITOR PT THROUGHTOUT THIS SHIFT. TABLE & CALL LIGHT WITHIN PT REACH.
[2019-05-20 03:49] LABS: BASOPHILS ABSOLUTE AUTO 0.03 K/mm3 (0.00-0.23); BASOPHILS PERCENT AUTO 0 % (0-2); EOSINOPHILS PERCENT AUTO 3 % (0-6); Hematocrit 25.5 % (33.0-51.0); Hemoglobin 7.4 g/dL (11.5-16.0); IMMATURE GRAN ABSOLUTE AUTO 0.04 K/mm3 (0.00-0.10); IMMATURE GRAN PERCENT AUTO 1 % (0-1); LYMPHOCYTES ABSOLUTE AUTO 0.97 K/mm3 (0.84-5.20); LYMPHOCYTES PERCENT AUTO 14 % (21-46); MONOCYTES PERCENT AUTO 6 % (4-13); Mean Corpuscular Volume 90 fL (80-100); Mean Platelet Volume 11.9 fL (9.1-12.4); NEUTROPHILS ABSOLUTE AUTO 5.55 K/mm3 (1.96-9.15); NEUTROPHILS PERCENT AUTO 77 % (41-73); Platelet Count 273 K/mm3 (150-400); RDW Coefficient Variation 17.6 % (11.7-14.2); RDW Standard Deviation 57.3 fL (35.1-46.3); Red Blood Cell Count 2.85 M/mm3 (3.80-5.20); White Blood Cell Count 7.19 K/mm3 (4.00-11.30)
[2019-05-20 04:04] LABS: Anion Gap 3 mmol/L (6-16); Blood Urea Nitrogen 7 mg/dL (8-24); Bun/Creatinine Ratio 8.3 (12.0-20.0); CO2, Blood 35 mmol/L (21-32); Calcium, Blood 8.3 mg/dL (8.5-10.1); Chloride, Blood 106 mmol/L (98-108); Creatinine, Blood 0.85 mg/dL (0.40-1.00); Glomerular Filtration Rate >60 (60-); Glucose, Blood 74 mg/dL (70-99); Magnesium, Blood 2.1 mg/dL (1.6-2.4); Phosphorus, Blood 2.4 mg/dL (2.5-4.9); Potassium, Blood 3.3 mmol/L (3.5-5.5); Sodium, Blood 144 mmol/L (136-145)
--- NOTE | 2019-05-20 05:00 | NUR ---
DR SOLIS NOTIFY/ORDERS SPOKE WITH DR SOLIS R/T PT ON HOME VENT, FREQ. ALARM FOR HIGH INSPIRATORY PRESSURES >500, NEED FOR SS CONS R/T FATHER ADMITTED TO HOSPITAL LAST NIGHT, AND LOW POTASSIUM & LOW PHOS. ORDERS RECEIVED AND REPEATED TO TURN HIGH INSP PRESSURE ALARM OFF, GIVE K-PHOS 20 mm PIGGYBACK, AND WORRY ABOUT SS CONSULT DURING THE DAY. ORDERS PLACED IN COMPUTER, RT NOTIFIED OF ORDER & VENT SETTINGS CHANGED BY RT LARISSA, AND WILL INFORM DAY SHIFT OF SS CONS NEED.
--- NOTE | 2019-05-20 06:01 | NUR ---
SHIFT SUMMARY PT REMAINED IN BED THIS SHIFT, REPOSITIONED BACK TO LEFT SIDE WITH MIN ASSIST FOR PT COMFORT. (PT REFUSED TURN TO RT SIDE.) PT REMAINS A&O X4, C/O PAIN TO LEFT SIDE AND SCHEDULED PAIN MED GIVEN. HEART REMAINS NSR/ST WITH RATE OF 80-110. SBP 92-133 THIS SHIFT. LUNGS REMAIN COARSE THROUGHOUT, SATS 91-96% ON 10L BLEED INTO HOME VENTILATOR. VENT SETTINGS REMAIN RATE 16/TIDAL VOL 450/ PEEP 5/ PRESSURE SUPPORT 12. PT REQUIRED FREQUENT SUCTIONING OF THICK YELLOW SPUTUM. PT ALSO HAD FREQ HIGH INSPIRATORY PRESSURE ALARM- RT NOTIFIED AND AFTER ADJUSTMENTS MADE THERE WAS NO IMPROVEMENT. DR SOLIS NOTIFIED AND ORDER RECEIVED TO TURN HIGH INSP PRESSURE ALARM OFF. RT NOTIFIED OF ORDER AND TURNED IT TO 80 FROM PREVIOUS SETTINGS OF 45. BOWEL SOUNDS HYPOACTIVE, PT USES BEDPAN WITH ASSIST X1-2, LAST BM 05/17, ABDOMEN DISTENDED, FIRM, TENDER. SKIN HAD LITTLE CHANGES ALTHOUGH NYSTATIN CREAM WAS STARTED ON DAY SHIFT 05/19. PT REMAINS IN DROPLET PRECAUTIONS R/T MRSA+. BEDSIDE TABLE AND CALL LIGHT REMAIN WITHIN REACH. PT PHONE PLACED ON HER BEDSIDE TABLE, LOWER DENTURE IN CUP AT SINKSIDE, BED LOW THIS SHIFT. LABS DRAWN FROM MEDIPORT THIS AM AND ABNORMAL POTASSIUM AND PHOS REPORTED TO DR SOLIS- ORDER RECEIVED AND REPEATED FOR K-PHOS 20mm PIGGYBACK AND IVPB STARTED THIS AM. NS CONTINUES TO INFUSE VIA RT CHEST WALL GENE, MEIR C/D/I. WILL CONTINUE TO MONITOR PT THIS SHIFT.
--- NOTE | 2019-05-20 09:00 | NUR ---
ASSUMED CARE / DR PIERSON: REPORT RECEIVED FROM SENAIT Mai, RN & SCAR Lovell RN. ASSUMED CARE OF THIS PT AT APPROX 0700. ON ASSESSMENT, THE PT IS A&O. SHE EXPRESSES CONCERN R/T HER FATHER's CURRENT STATUS, WHO IS ALSO IN THE HOSPITAL NOW. REASSURANCE PROVIDED & THE PT BECOMES LESS ANXIOUS. SHE CONTINUES ON HOME VENT, SETTINGS: SIMV 12/450/5 & 10L BLEED-IN. LS ARE COARSE T/O, COPIOUS AMNTS THICK EMERSON SPUTUM SUCTIONED VIA TRACH. MONITOR SHOWS SR-ST W/ HR 90-100s, BP STABLE. PT TOLERATING PO INTAKE WELL, VOIDING URINE W/O DIFFICULTY. PROVIDER AT BEDSIDE TO WM PT. INFORMED HER THAT PT HAS BEEN ON HOME VENT SINCE APPROX 1500 YESTERDAY (05/19/19). NO CHANGES AT THIS TIME. WILL CONTINUE TO MONITOR & UPDATE NEEDED.
--- NOTE | 2019-05-20 10:30 | NUR ---
DR SOLIS: PROVIDER AT BEDSIDE TO SEE PT. SHE IS REQUESTING A "PAIN SHOT" FROM HIM BUT QUICKLY RESUMES SLEEPING & IS RESTING COMFORTABLY. NO NEW ORDERS AT THIS TIME. WILL CONTINUE TO MONITOR & UPDATE NEEDED.
--- NOTE | 2019-05-20 13:29 | NUR ---
INNER CANNULA CHANGE: INNER TRACH CANNULA CHANGED W/ ASSIST FROM RT RASHMI. O2 SATS STABLE DURING THIS TIME & PT HAS NO COMPLAINTS. VENT THERAPY RESUMED. WILL CONTINUE TO MONITOR & UPDATE NEEDED.
--- NOTE | 2019-05-20 17:18 | NUR ---
SHIFT SUMMARY: NO ACUTE CHANGES THIS SHIFT. PT REMAINS A&O, PLEASANT & COOPERATIVE. LS REMAIN COARSE T/O, SOME WHEEZING NOTED W/ INCREASED EXERTION. PT CONTINUES ON HOME VENT W/ SETTINGS: 16/450/5 & 9L BLEED-IN. LARGE AMNTS OF THICK EMERSON SPUTUM BEING SUCTIONED FROM TRACH. MONITOR SHOWS SR-ST, HR 90-100s. BP STABLE W/ LESS HYPOTENSION NOTED THAN YESTERDAY. PT HAS GOOD APPETITE & NO GI COMPLAINTS, VOIDS W/O DIFFICULTY. SKIN OVERALL CDI & NYSTATIN CREAM APPLIED TO RED/ITCHY GIOVANNA AREA. WILL CONTINUE TO MONITOR & REPORT OFF TO ONCOMING RN.
--- NOTE | 2019-05-20 19:00 | NUR ---
SHIFT REPORT BEDSIDE REPORT RECEIVED FROM PIERCE OGDEN. PT RESTING IN BED, NS INFUSING @ 100/HR VIA RT MEDIPORT. PT ON HOME VENT WITH SETTINGS OF 16/450/5/ AND OXYGEN 9L BLEED-IN. NO NEEDS VOICED AT THIS TIME. WILL MONITOR THROUGHOUT THIS SHIFT.
--- NOTE | 2019-05-21 02:00 | NUR ---
[facility] REPORT PT RESTING THIS SHIFT IN BED. PT CONTINUES WITH HR 80-110s, SR/ST. LUNGS REMAIN COARSE THROUGHOUT AND PT ON HOME VENT WITH SETTINGS 16/450/5/9L BLEED IN. RT MONY DECREASED OXYGEN TO 7L BUT PT SATS DROPPED BELOW 88% AND OXYGEN CHANGED BACK TO 9L BLEED-IN. BOWEL SOUNDS PRESENT, PT HAS REFUSED BEDPAN THIS SHIFT. PT TURNS SELF BACK TO LT SIDE, REFUSES OTHER TURNS. PT REQUIRES MORE FREQUENT SUCTIONING THIS SHIFT. SKIN REMAINS WITH REDDENED GIOVANNA AREA AND SKIN TO BUTTOCKS PEELING, NYSTATION CREAM APPLIED TO GIOVANNA AREA PRN. PT USES CALL LIGHT APPROPRIATELY. TABLE AND CALL LIGHT IN REACH, BED IN LOW POSITION. WILL CONTINUE TO MONITOR PT THIS SHIFT.
[2019-05-21 04:30] LABS: BASOPHILS ABSOLUTE AUTO 0.03 K/mm3 (0.00-0.23); BASOPHILS PERCENT AUTO 1 % (0-2); EOSINOPHILS ABSOLUTE AUTO 0.22 K/mm3 (0.00-0.68); EOSINOPHILS PERCENT AUTO 3 % (0-6); Hematocrit 24.5 % (33.0-51.0); Hemoglobin 7.1 g/dL (11.5-16.0); IMMATURE GRAN ABSOLUTE AUTO 0.05 K/mm3 (0.00-0.10); IMMATURE GRAN PERCENT AUTO 1 % (0-1); LYMPHOCYTES ABSOLUTE AUTO 0.95 K/mm3 (0.84-5.20); LYMPHOCYTES PERCENT AUTO 15 % (21-46); MONOCYTES ABSOLUTE AUTO 0.47 K/mm3 (0.16-1.47); MONOCYTES PERCENT AUTO 7 % (4-13); Mean Corpuscular Volume 90 fL (80-100); Mean Platelet Volume 12.5 fL (9.1-12.4); NEUTROPHILS ABSOLUTE AUTO 4.67 K/mm3 (1.96-9.15); NEUTROPHILS PERCENT AUTO 73 % (41-73); Platelet Count 283 K/mm3 (150-400); RDW Coefficient Variation 17.4 % (11.7-14.2); RDW Standard Deviation 56.7 fL (35.1-46.3); Red Blood Cell Count 2.73 M/mm3 (3.80-5.20); White Blood Cell Count 6.39 K/mm3 (4.00-11.30)
[2019-05-21 04:46] LABS: Anion Gap 2 mmol/L (6-16); Blood Urea Nitrogen 7 mg/dL (8-24); Bun/Creatinine Ratio 8.4 (12.0-20.0); CO2, Blood 34 mmol/L (21-32); Calcium, Blood 8.1 mg/dL (8.5-10.1); Chloride, Blood 108 mmol/L (98-108); Creatinine, Blood 0.84 mg/dL (0.40-1.00); Glomerular Filtration Rate >60 (60-); Glucose, Blood 78 mg/dL (70-99); Magnesium, Blood 2.1 mg/dL (1.6-2.4); Phosphorus, Blood 3.5 mg/dL (2.5-4.9); Potassium, Blood 3.2 mmol/L (3.5-5.5); Sodium, Blood 144 mmol/L (136-145)
--- NOTE | 2019-05-21 06:00 | NUR ---
SHIFT SUMMARY PT REMAINS IN BED, RESTING MOST OF SHIFT. PT REPOSITIONS SELF FROM BACK TO LT SIDE. PT C/O PAIN/ANXIETY AND PRN ATIVAN GIVEN X1. HEART RATE 60s-110s, NST/ST. LUNGS COARSE THROUGHOUT WITH HOME VENT SETTINGS SAME AT 16/450/5/ 9L BLEED IN, SUCTIONED THICK YELLOW SPUTUM NEEDED. BOWEL SOUNDS PRESENT, BEDPAN USED PRN. SKIN REMAINS REDDENED IN GIOVANNA AREA/BUTTOCKS PEELING. PT USES CALL LIGHT APPROPRIATELY. BEDSIDE TABLE AND CALL LIGHT IN REACH, BED LOW. WILL CONTINUE TO MONITOR PT THIS SHIFT.
--- NOTE | 2019-05-21 08:00 | NUR ---
ASSUMED CARE OF PATIENT; SEE ASSESSMENT CHARTING FOR DETAILS. PATIENT SLEEPING BUT ROUSES EASILY. ABD. ROTUND AND SL. FIRM; SOME DISCOMFORT TO L SIDE. AM CARE GIVEN AND HOB 90 DEGREES FOR BREAKFAST; ABLE TO FEED SELF; EATS SLOWLY D/T SOBOE BUT ENJOYS HER MEALS. VOIDS ON BEDPAN; ROLLS ONTO SIDE WITH 1 PERSON ASSIST. MONITOR REMAINS NSR AND VSS. REMAINS ON HOME VENT WITH SETTINGS: SIMV-16, TV-450, PEEP-5, AND P/S 12; 9L 02 BLEED-IN. VENT. CONNECTED TO PATIENTS' TRACH SITE.
--- NOTE | 2019-05-21 13:00 | NUR ---
PATIENT CHANGED TO PCU STATUS; ORDER PLACED BY MIXER OPERATOR HELPER HOT METAL (DIPESH QUIROS) PER DR. OGDEN ([place] DECORATOR).
--- NOTE | 2019-05-21 13:22 | NUR ---
PATIENT SLEEPY THIS AFTERNOON; APPETITE REDUCED. VSS AND NO ACUTE DISTRESS.
--- NOTE | 2019-05-21 18:19 | NUR ---
SUMMARY: POTENTIAL DISCHARGE HOME TOMORROW; PATIENTS' FATHER REMAINS PATIENT IN PCU-5 BUT PATIENT HAS BEEN ON HOME VENT OVER 48 HRS AND TOLERATING DIET ETC; VS STABLE AND AFEBRILE. HAS PAID CAREGIVER FOR DAYTIME HOURS AND FAMILY ABLE TO BE AVAILABLE AT NIGHT-TIME. PATIENT FEELS COMFORTABLE TO RETURN HOME. CONT. TO REQUIRE FREQUENT SUCTIONING VIA TRACH. APPETITE FAIR TO GOOD; NO N/V. ABD. OBESE/ROTUND BUT REASONABLY SOFT; C/O DISCOMFORT TO L SIDE OF ABD.; RN INQUIRED IF FEELS NEED TO HAVE BM; STATES NO. VOIDS ON BEDPAN; 1 PERSON ASSIST.; PATIENT ABLE TO ROLL SIDE TO SIDE. IVF OF NS REMAINS AT 100ML/HR.; OVERALL STATUS IMPROVED. WILL REPORT TO ONCOMING RN.
--- NOTE | 2019-05-21 20:16 | NUR ---
[place] of Care: Patient sleeping, easily roused to verbal stimuli, oriented x4. C/o pain to lt ribs, will give routine scheduled oxycontin, no other c/o pain. Denies dyspnea/SOB, VSS, O2-95% on 12LPM bleed in to home vent. Lung sounds course throughout but greatly improved with in-line suctioning of trach. Medi-port accessed to rt upper chest, patent and intact, infusing NS at 100ml/hr without difficulty. Call light in reach, makes needs known. Will continue to monitor for pain, safety, comfort.
[2019-05-22 03:58] LABS: BASOPHILS ABSOLUTE AUTO 0.04 K/mm3 (0.00-0.23); BASOPHILS PERCENT AUTO 1 % (0-2); EOSINOPHILS ABSOLUTE AUTO 0.19 K/mm3 (0.00-0.68); EOSINOPHILS PERCENT AUTO 3 % (0-6); Hematocrit 25.7 % (33.0-51.0); Hemoglobin 7.4 g/dL (11.5-16.0); IMMATURE GRAN ABSOLUTE AUTO 0.08 K/mm3 (0.00-0.10); IMMATURE GRAN PERCENT AUTO 1 % (0-1); LYMPHOCYTES ABSOLUTE AUTO 1.11 K/mm3 (0.84-5.20); LYMPHOCYTES PERCENT AUTO 18 % (21-46); MONOCYTES ABSOLUTE AUTO 0.37 K/mm3 (0.16-1.47); MONOCYTES PERCENT AUTO 6 % (4-13); Mean Corpuscular HGB 25.9 pg (26.0-34.0); Mean Corpuscular HGB Conc 28.8 g/dL (31.5-36.5); Mean Corpuscular Volume 90 fL (80-100); Mean Platelet Volume 11.9 fL (9.1-12.4); NEUTROPHILS ABSOLUTE AUTO 4.25 K/mm3 (1.96-9.15); NEUTROPHILS PERCENT AUTO 70 % (41-73); Platelet Count 290 K/mm3 (150-400); RDW Coefficient Variation 17.3 % (11.7-14.2); Red Blood Cell Count 2.86 M/mm3 (3.80-5.20); White Blood Cell Count 6.04 K/mm3 (4.00-11.30)
[2019-05-22 04:19] LABS: Anion Gap 3 mmol/L (6-16); Blood Urea Nitrogen 8 mg/dL (8-24); Bun/Creatinine Ratio 8.8 (12.0-20.0); CO2, Blood 31 mmol/L (21-32); Calcium, Blood 8.3 mg/dL (8.5-10.1); Chloride, Blood 110 mmol/L (98-108); Creatinine, Blood 0.91 mg/dL (0.40-1.00); Glomerular Filtration Rate >60 (60-); Glucose, Blood 79 mg/dL (70-99); Potassium, Blood 3.9 mmol/L (3.5-5.5); Sodium, Blood 144 mmol/L (136-145)
--- NOTE | 2019-05-22 06:23 | NUR ---
Shift Summary: Patient slept well throughout shift. No further c/o pain following routine medications given at HS. Tolerated home vent well throughout shift, O2 bleed in from 10-15L, O2%- 92-98%. short periods of c/o SOB, easily resolved with suctioning with in-line trach appliance. Suctioning effective for moderate to large amount of thick, yellow tinged secretions. Voiding using bedpan without difficulty. Medi-port to rt upper chest remains patent and intact. Call light in reach, makes needs known. Will continue to monitor until report to day shift RN.
--- NOTE | 2019-05-22 08:00 | NUR ---
INITIAL ASSESMENT PT ALERT, MOUTHING WORDS AND DENIES PAIN. ANXIOUS AT TIMES AND REQUESTS HIGHER O2 SETTING, BUT REORIENTED AND REASSURED WITH ANXIETY RESOLVING. VSS, AFEBRILE AND PALP PULSES T/O WITH NO EDEMA. TOLERATING VENT SETTING AND SMALL YELLOW THICK TRACH SECREATIONS. CLEAR AND DIM BILAT. TOLERATING DIET AND PO PILL PASS WITH ABD SOFT ROUND AND NONTENDER. NO BM. VOIDS VIA BEDPAN WITH CLEAR YELLOW URINE AND INCONTINENT. WILL CONT TO MONITOR
--- NOTE | 2019-05-22 12:00 | NUR ---
PT HOME DISCHARGE UPDATE PT REQUESTING TO GO HOME, AWARE AND SW IN THE LOOP TO ARRANGE HOME CARE GIVEN PT VASCULAR TECHNOLOGIST IS IN PT. VASCULAR TECHNOLOGIST RESITANT TO PT DISCHARGE HOME. CN AWARE AND WILL CONT TO MONITOR
[2019-05-22 13:23] LABS: Tobramycin, Trough 0.5 ug/mL (0.0-1.9)
--- NOTE | 2019-05-22 19:20 | NUR ---
REPORT BEDSIDE REPORT RECEIVED FROM PIERCE WISE. PT PLACED ON BEDPAN, LINENS CHANGED R/T INCONT YELLOW URINE. CREAMS APPLIED. PT RESTING IN BED, HOME VENT WITH SETTINGS 16/450/5/ 9L BLEED IN, SAT >90%. VS STABLE. PT WRITES OR MOUTHS WORDS AND NO C/O OR REQUESTS AT THIS TIME. WILL CONTINUE TO MONITOR PT THIS SHIFT.
--- NOTE | 2019-05-23 06:41 | NUR ---
SHIFT SUMMARY PT RESTING IN BED THIS SHIFT. REPOSITIONS SELF FOR COMFORT, PILLOWS FOR SUPPORT. PT REMAINS A&O X4, CONCERNED WITH FATHER'S HEALTH. NS @ TKO VIA RT GENE, MEIR C/D/I. HEART REMAINS REGULAR, RATE 80-100s. LUNGS COARSE THROUGHOUT, SATS MID 90s, RR 18-24. PT REMAINS ON HOME VENT WITH SETTINGS 16/450/5/PS12, 9L BLEED IN. PT WILL REQUEST ADDITIONAL OXYGEN WITH ACTIVITY, ANXIETY. VERBAL REASSURANCE GIVEN AND PT FOLLOWS DIRECTIONS WELL. BOWEL SOUNDS PRESENT, NO BM SINCE 05/17 AND MOM GIVEN THIS AM. PT VOIDS PER BEDPAN, INCONT AT TIMES, ENCOURAGED TO USE BEDPAN MORE FREQUENTLY. PT LABIA REMAINS SWOLLEN AND REDDENED. BUTTOCKS PINK AND SKIN CONDITION IMPROVED, USING CREAMS PRN. PT REMAINS IN CONTACT ISOLATION FOR HX MRSA. WILL CONTINUE TO MONITOR PT.
--- NOTE | 2019-05-23 21:00 | NUR ---
ASSUMED PT CARE AT 1915 PT RESTING IN BED. HOME VENT SETTINGS PS 12 WITH PEEP 5. OXYGEN FLOW AT 12LPM. PT EASILY AROUSABLE; ABLE TO MAKE HER NEEDS KNOWN. VOIDS APPROPRIATELY UTILIZING BEDPAN. VSS; SINUS TACH WITH HR LOW 100'S. CALL LIGHT WITHIN REACH AND PT IS ABLE TO MAKE NEEDS KNOWN.
--- NOTE | 2019-05-24 04:54 | NUR ---
END OF SHIFT SUMMARY NO SIGNIFICANT CHANGES SINCE LAST ENTRY. PT'S DAD CALLED FOR AN UPDATE. PT REMAINS ON HOME VENT WITH SETTINGS UNCHANGED OTHER THAN OXYGEN INCREASED TO 13LPM PER PT REQUEST. CONTINUE TO SUCTION MODERATE AMOUNTS OF THICK, YELLOW SPUTUM. PT COMPLIANT WITH CARE. C/O PAIN AT BEGINNING OF SHIFT, WHICH OXYCONTIN WAS EFFECTIVE FOR; NO OTHER COMPLAINTS. NO ANXIETY NOTED THIS SHIFT. PT SLEPT T/O MOST OF NIGHT. WILL CONTINUE TO MONITOR UNTIL REPORT IS HANDED OFF TO ONCOMING RN.
--- NOTE | 2019-05-24 11:58 | NUR ---
Spiritual care visit conducted. Patient is so sleepy that she can only focus for a few moments then falls back asleep. Patient tells me that she is feeling better and allows for me to pray. I provide prayer. I will continue to remain available to patient and family.
--- NOTE | 2019-05-24 12:06 | NUR ---
REASSESSMENT: PT HAS BEEN RESTING THROUGHOUT THE MORNING. HER DAD CAME BY AND THEY VISITED WITH EACH AND WITH THE CAN STACKER. OTHERWISE PT REQUESTED HER ATIVAN AND THEN JUST WANTED TO SLEEP. LUNGS REMAIN SLIGHTLY COARSE. PT IS ON HER HOME VENT. SUCTIONED ONCE FOR THICK YELLOW SPUTUM. SR, BP STABLE. PT EATING SMALL AMTS OF HER MEALS. NO OTHER REQUESTS AT THIS TIME.
[2019-05-24] MEDS ORDERED: TOBRAMYCIN300 MG/5 M INH (13:47)
--- NOTE | 2019-05-24 14:18 | NUR ---
review of plan of care with staff, brief supportive visit wtih family.
--- NOTE | 2019-05-24 15:52 | NUR ---
DISCHARGE: PT DISCHARGED AT 1510 VIA WC IN PRIVATE VEHICLE. 2 OXYGEN TANKS OBTAINED FROM [facility] FOR HER TRIP HOME. RT CHANGED OUT PT'S INNER CANNULA BEFORE DC. ANXIETY MEDICINE GIVEN BEFORE DC BECAUSE PT STATES SHE ALWAYS GETS ANXIOUS WHEN SHE FIRST GETS DISCHARGED. NEBULIZED ABX CALLED INTO PHARMACY AND PT AWARE. ALL BELONGINGS DC'D WITH PT.
== END 2019-05-24 15:00 | disposition home health service (06) | DRG 870 ==
LOC: ER 12:31 → ICUW 15:21 → ICUE 15:55 → PCU 04-30 15:45 → ICUW 05-02 13:11
PROVIDERS: Emergency Medicine; Internal Medicine; Internal Medicine Critical Care Medicine; Internal Medicine Pulmonary Disease; Nurse Practitioner Acute Care; Pharmacist; ADMIT Hospitalist
PROC: 5A1955Z Respiratory Ventilation, Greater than 96 Consecutive Hours (ICD-10-PCS; principal; 2019-04-29)
DX: A41.52 Sepsis due to Pseudomonas (principal); G92 Toxic encephalopathy; J96.22 Acute and chronic respiratory failure with hypercapnia; J18.9 Pneumonia, unspecified organism; J15.1 Pneumonia due to Pseudomonas; J96.21 Acute and chronic respiratory failure with hypoxia; Z99.11 Dependence on respirator [ventilator] status; J44.1 Chronic obstructive pulmonary disease with (acute) exacerbation; J44.0 Chronic obstructive pulmonary disease with (acute) lower respiratory infection; E87.0 Hyperosmolality and hypernatremia; E27.40 Unspecified adrenocortical insufficiency; Z16.35 Resistance to multiple antimicrobial drugs; Z93.0 Tracheostomy status; M81.0 Age-related osteoporosis without current pathological fracture; Z87.891 Personal history of nicotine dependence; F32.9 Major depressive disorder, single episode, unspecified; R45.1 Restlessness and agitation; E83.39 Other disorders of phosphorus metabolism; E87.6 Hypokalemia; F41.9 Anxiety disorder, unspecified; T38.0X5A Adverse effect of glucocorticoids and synthetic analogues, initial encounter; Y92.239 Unspecified place in hospital as the place of occurrence of the external cause; I12.9 Hypertensive chronic kidney disease with stage 1 through stage 4 chronic kidney disease, or unspecified chronic kidney disease; N18.2 Chronic kidney disease, stage 2 (mild)
CPT/HCPCS: 0099U; 31720; 36415; 36430; 36600; 51702; 71045; 80048; 80053; 80069; 80200; 80202; 81001; 82270; 82728; 82803; 82947; 83540; 83550; 83605; 83735; 83880; 84100; 84145; 85014; 85018; 85025; 85027; 85610; 85730; 86850; 86900; 86901; 86923; 87040; 87070; 87077; 87086; 87186; 87205; 87804; 93005; 93010; 94002; 94003; 94640; 94762; 96361-59; 96365-59; 97110; 97163; 97167; 97530; 99285-25; A9270; A9270-GY; C1751; C9113; J0456; J0713; J1170; J1642; J1644; J1650; J1720; J2060; J2270; J2704; J2920; J3010; J3260; J3370; J3480; J7030; J7040; J7050; J7060; J7120; J7512; P9016

== ENCOUNTER 2019-07-09 00:18 | Day surgery (SDC) | payer OTHER | END 2019-07-09 22:50 | disposition home or self-care (01) | LOC: ATC 00:18 | DX: Z45.2 Encounter for adjustment and management of vascular access device (principal); J43.9 Emphysema, unspecified; Z87.891 Personal history of nicotine dependence; J96.11 Chronic respiratory failure with hypoxia; Z79.52 Long term (current) use of systemic steroids; Z79.51 Long term (current) use of inhaled steroids ==

== ENCOUNTER 2020-01-15 15:39 | Emergency (ER) | payer OTHER ==
[~2020-01-15] VITALS: Ht 160 cm; Wt 54.4 kg
[~2020-01-15 15:39] MED LIST changes: +DORN1IH INH; +PREG150 PO; +STIOLTO RESPIMAT4 G1 INH; +TOBRAMYCIN300 MG/52 NEB; +TRAZ100 PO
[2020-01-15 16:20] LABS: PCO2 Arterial 83.2 mmHg (35-45); PO2 Arterial 80.2 mmHg (80-100); pH Blood Arterial 7.27 (7.35-7.45)
[2020-01-15 16:43] LABS: BASOPHILS ABSOLUTE AUTO 0.09 K/mm3 (0.00-0.23); BASOPHILS PERCENT AUTO 1 % (0-2); EOSINOPHILS ABSOLUTE AUTO 0.19 K/mm3 (0.00-0.68); EOSINOPHILS PERCENT AUTO 1 % (0-6); Hematocrit 39.6 % (33.0-51.0); Hemoglobin 11.2 g/dL (11.5-16.0); IMMATURE GRAN ABSOLUTE AUTO 0.06 K/mm3 (0.00-0.10); IMMATURE GRAN PERCENT AUTO 0 % (0-1); LYMPHOCYTES ABSOLUTE AUTO 1.97 K/mm3 (0.84-5.20); LYMPHOCYTES PERCENT AUTO 13 % (21-46); MONOCYTES ABSOLUTE AUTO 0.64 K/mm3 (0.16-1.47); MONOCYTES PERCENT AUTO 4 % (4-13); Mean Corpuscular HGB Conc 28.3 g/dL (31.5-36.5); Mean Corpuscular Volume 92 fL (80-100); Mean Platelet Volume 12.3 fL (9.1-12.4); NEUTROPHILS ABSOLUTE AUTO 12.03 K/mm3 (1.96-9.15); NEUTROPHILS PERCENT AUTO 80 % (41-73); Platelet Count 256 K/mm3 (150-400); RDW Coefficient Variation 18.1 % (11.7-14.2); RDW Standard Deviation 60.7 fL (35.1-46.3); Red Blood Cell Count 4.31 M/mm3 (3.80-5.20); White Blood Cell Count 14.98 K/mm3 (4.00-11.30)
[2020-01-15 17:03] LABS: Alanine Aminotransfer (ALT/SGP 14 U/L (12-78); Albumin, Blood 3.2 g/dL (3.4-5.0); Albumin/Globulin Ratio 0.7 (0.8-1.8); Alk Phos 98 U/L (50-136); Anion Gap 2 mmol/L (6-16); Aspartate Aminotrans (AST/SGOT 14 U/L (12-37); Bilirubin, Total 0.2 mg/dL (0.1-1.0); Blood Urea Nitrogen 22 mg/dL (8-24); Bun/Creatinine Ratio 28.1 (12.0-20.0); CO2, Blood 37 mmol/L (21-32); Chloride, Blood 101 mmol/L (98-108); Creatinine, Blood 0.78 mg/dL (0.40-1.00); Globulin, Blood 4.5 g/dL (2.2-4.0); Glomerular Filtration Rate >60 (60-); Glucose, Blood 178 mg/dL (70-99); Potassium, Blood 3.9 mmol/L (3.5-5.5); Sodium, Blood 140 mmol/L (136-145); Total Protein, Blood 7.7 g/dL (6.4-8.2); Troponin I <0.015 ng/mL (0.000-0.040)
[2020-01-15 17:54] LABS: PCO2 Arterial 69.7 mmHg (35-45); PO2 Arterial 62.5 mmHg (80-100); pH Blood Arterial 7.35 (7.35-7.45)
== END 2020-01-15 21:36 | disposition home or self-care (01) ==
LOC: ER 15:39
PROVIDERS: Emergency Medicine; Internal Medicine
DX: J96.10 Chronic respiratory failure, unspecified whether with hypoxia or hypercapnia (principal); J95.09 Other tracheostomy complication; J44.9 Chronic obstructive pulmonary disease, unspecified; F41.9 Anxiety disorder, unspecified; F32.9 Major depressive disorder, single episode, unspecified; I10 Essential (primary) hypertension; Z87.891 Personal history of nicotine dependence; Z79.899 Other long term (current) drug therapy
CPT/HCPCS: 31720; 36600; 71260; 80053; 82803; 84484; 85025; 93005; 93010; 96360; 99285-25; J7030; Q9967

== ENCOUNTER 2020-01-17 23:47 | Inpatient (IN) | payer OTHER ==
[~2020-01-17] VITALS: Ht 157.5 cm; Wt 60.0 kg
[2020-01-18 00:24] LABS: BASOPHILS ABSOLUTE AUTO 0.07 K/mm3 (0.00-0.23); BASOPHILS PERCENT AUTO 1 % (0-2); EOSINOPHILS ABSOLUTE AUTO 0.17 K/mm3 (0.00-0.68); EOSINOPHILS PERCENT AUTO 1 % (0-6); Hematocrit 37.8 % (33.0-51.0); Hemoglobin 10.7 g/dL (11.5-16.0); IMMATURE GRAN ABSOLUTE AUTO 0.05 K/mm3 (0.00-0.10); IMMATURE GRAN PERCENT AUTO 0 % (0-1); LYMPHOCYTES ABSOLUTE AUTO 1.15 K/mm3 (0.84-5.20); LYMPHOCYTES PERCENT AUTO 9 % (21-46); MONOCYTES ABSOLUTE AUTO 0.85 K/mm3 (0.16-1.47); MONOCYTES PERCENT AUTO 7 % (4-13); Mean Corpuscular HGB 25.3 pg (26.0-34.0); Mean Corpuscular HGB Conc 28.3 g/dL (31.5-36.5); Mean Corpuscular Volume 89 fL (80-100); Mean Platelet Volume 11.2 fL (9.1-12.4); NEUTROPHILS ABSOLUTE AUTO 10.38 K/mm3 (1.96-9.15); NEUTROPHILS PERCENT AUTO 82 % (41-73); Platelet Count 228 K/mm3 (150-400); RDW Standard Deviation 59.4 fL (35.1-46.3); Red Blood Cell Count 4.23 M/mm3 (3.80-5.20); White Blood Cell Count 12.67 K/mm3 (4.00-11.30)
[2020-01-18 00:43] LABS: Anion Gap 6 mmol/L (6-16); Blood Urea Nitrogen 21 mg/dL (8-24); Bun/Creatinine Ratio 22.1 (12.0-20.0); CO2, Blood 36 mmol/L (21-32); Chloride, Blood 102 mmol/L (98-108); Creatinine, Blood 0.95 mg/dL (0.40-1.00); Glomerular Filtration Rate >60 (60-); Glucose, Blood 102 mg/dL (70-99); Potassium, Blood 3.8 mmol/L (3.5-5.5); Sodium, Blood 144 mmol/L (136-145); Troponin I <0.015 ng/mL (0.000-0.040)
[2020-01-18 01:41] LABS: Base Excess Venous 8.3 mmol/L; Bicarbonate Venous 30.7 mmol/L (24.0-30.0); PCO2 Venous 60.3 mmHg (38-42); PO2 Venous 106 mmHg (38-42); pH Blood Venous 7.36 (7.34-7.37)
[2020-01-18 03:21] LABS: Source, Urine Catheter
[2020-01-18 03:31] LABS: Bilirubin, Urine Neg (Neg); Blood, Urine 3+ (Neg); Glucose Qualitative, Urine Neg (Neg); Ketones, Urine 4+ (Neg); Leukocyte Esterase, Urine 1+ (Neg); Nitrite, Urine Pos (Neg); Protein, Urine 2+ (Neg); Urobilinogen, Urine NORM (Normal)
[2020-01-18 03:32] LABS: Appearance, Urine Clear (Clear); Color, Urine Yellow (P-Yellow)
[2020-01-18 03:38] LABS: Amorphous Light (0-Heavy); Bacteria Many /hpf; Red Blood Cells, Urine 0-2 /hpf (0-2); Squamous Epithelial Cells Not Seen /hpf (Few); White Blood Cells, Urine 25-50 /hpf (0-5)
[2020-01-19 04:05] LABS: BASOPHILS ABSOLUTE AUTO 0.02 K/mm3 (0.00-0.23); BASOPHILS PERCENT AUTO 0 % (0-2); EOSINOPHILS ABSOLUTE AUTO 0.05 K/mm3 (0.00-0.68); EOSINOPHILS PERCENT AUTO 1 % (0-6); Hematocrit 26.1 % (33.0-51.0); Hemoglobin 7.7 g/dL (11.5-16.0); IMMATURE GRAN ABSOLUTE AUTO 0.03 K/mm3 (0.00-0.10); IMMATURE GRAN PERCENT AUTO 0 % (0-1); LYMPHOCYTES ABSOLUTE AUTO 0.84 K/mm3 (0.84-5.20); LYMPHOCYTES PERCENT AUTO 9 % (21-46); MONOCYTES ABSOLUTE AUTO 0.41 K/mm3 (0.16-1.47); MONOCYTES PERCENT AUTO 5 % (4-13); Mean Corpuscular HGB 25.3 pg (26.0-34.0); Mean Corpuscular HGB Conc 29.5 g/dL (31.5-36.5); Mean Corpuscular Volume 86 fL (80-100); Mean Platelet Volume 12.6 fL (9.1-12.4); NEUTROPHILS ABSOLUTE AUTO 7.79 K/mm3 (1.96-9.15); NEUTROPHILS PERCENT AUTO 85 % (41-73); Platelet Count 216 K/mm3 (150-400); RDW Coefficient Variation 17.7 % (11.7-14.2); RDW Standard Deviation 56.2 fL (35.1-46.3); Red Blood Cell Count 3.04 M/mm3 (3.80-5.20); White Blood Cell Count 9.14 K/mm3 (4.00-11.30)
[2020-01-19 04:22] LABS: Anion Gap 8 mmol/L (6-16); Blood Urea Nitrogen 26 mg/dL (8-24); Bun/Creatinine Ratio 32.6 (12.0-20.0); CO2, Blood 32 mmol/L (21-32); Calcium, Blood 8.4 mg/dL (8.5-10.1); Chloride, Blood 107 mmol/L (98-108); Glomerular Filtration Rate >60 (60-); Glucose, Blood 88 mg/dL (70-99); Potassium, Blood 3.1 mmol/L (3.5-5.5); Sodium, Blood 147 mmol/L (136-145)
[2020-01-19 15:09] LABS: Hematocrit 34.5 % (33.0-51.0); Hemoglobin 10.3 g/dL (11.5-16.0); Mean Corpuscular HGB 25.9 pg (26.0-34.0); Mean Corpuscular HGB Conc 29.9 g/dL (31.5-36.5); Mean Corpuscular Volume 87 fL (80-100); Platelet Count 229 K/mm3 (150-400); RDW Coefficient Variation 17.6 % (11.7-14.2); RDW Standard Deviation 56.7 fL (35.1-46.3); Red Blood Cell Count 3.97 M/mm3 (3.80-5.20); White Blood Cell Count 11.07 K/mm3 (4.00-11.30)
[2020-01-20 03:37] LABS: BASOPHILS ABSOLUTE AUTO 0.05 K/mm3 (0.00-0.23); BASOPHILS PERCENT AUTO 1 % (0-2); EOSINOPHILS ABSOLUTE AUTO 0.16 K/mm3 (0.00-0.68); EOSINOPHILS PERCENT AUTO 2 % (0-6); Hematocrit 31.6 % (33.0-51.0); Hemoglobin 9.2 g/dL (11.5-16.0); IMMATURE GRAN ABSOLUTE AUTO 0.01 K/mm3 (0.00-0.10); IMMATURE GRAN PERCENT AUTO 0 % (0-1); LYMPHOCYTES ABSOLUTE AUTO 1.14 K/mm3 (0.84-5.20); LYMPHOCYTES PERCENT AUTO 15 % (21-46); MONOCYTES ABSOLUTE AUTO 0.48 K/mm3 (0.16-1.47); MONOCYTES PERCENT AUTO 6 % (4-13); Mean Corpuscular HGB 25.5 pg (26.0-34.0); Mean Corpuscular HGB Conc 29.1 g/dL (31.5-36.5); Mean Corpuscular Volume 88 fL (80-100); Mean Platelet Volume 12.2 fL (9.1-12.4); NEUTROPHILS ABSOLUTE AUTO 5.74 K/mm3 (1.96-9.15); NEUTROPHILS PERCENT AUTO 76 % (41-73); Platelet Count 218 K/mm3 (150-400); RDW Coefficient Variation 18.2 % (11.7-14.2); RDW Standard Deviation 58.5 fL (35.1-46.3); Red Blood Cell Count 3.61 M/mm3 (3.80-5.20); White Blood Cell Count 7.58 K/mm3 (4.00-11.30)
[2020-01-20 03:52] LABS: Albumin, Blood 2.4 g/dL (3.4-5.0); Anion Gap 2 mmol/L (6-16); Blood Urea Nitrogen 20 mg/dL (8-24); Bun/Creatinine Ratio 19.2 (12.0-20.0); CO2, Blood 36 mmol/L (21-32); Calcium, Blood 9.1 mg/dL (8.5-10.1); Chloride, Blood 109 mmol/L (98-108); Creatinine, Blood 1.04 mg/dL (0.40-1.00); Glomerular Filtration Rate 59 (60-); Glucose, Blood 108 mg/dL (70-99); Magnesium, Blood 1.9 mg/dL (1.6-2.4); Phosphorus, Blood 1.8 mg/dL (2.5-4.9); Potassium, Blood 3.9 mmol/L (3.5-5.5); Sodium, Blood 147 mmol/L (136-145)
[2020-01-21 03:52] LABS: BASOPHILS ABSOLUTE AUTO 0.03 K/mm3 (0.00-0.23); BASOPHILS PERCENT AUTO 1 % (0-2); EOSINOPHILS ABSOLUTE AUTO 0.13 K/mm3 (0.00-0.68); EOSINOPHILS PERCENT AUTO 2 % (0-6); Hemoglobin 8.2 g/dL (11.5-16.0); IMMATURE GRAN ABSOLUTE AUTO 0.03 K/mm3 (0.00-0.10); IMMATURE GRAN PERCENT AUTO 1 % (0-1); LYMPHOCYTES ABSOLUTE AUTO 0.87 K/mm3 (0.84-5.20); LYMPHOCYTES PERCENT AUTO 15 % (21-46); MONOCYTES ABSOLUTE AUTO 0.44 K/mm3 (0.16-1.47); MONOCYTES PERCENT AUTO 8 % (4-13); Mean Corpuscular HGB 26.4 pg (26.0-34.0); Mean Corpuscular HGB Conc 30.4 g/dL (31.5-36.5); Mean Corpuscular Volume 87 fL (80-100); Mean Platelet Volume 11.1 fL (9.1-12.4); NEUTROPHILS ABSOLUTE AUTO 4.38 K/mm3 (1.96-9.15); NEUTROPHILS PERCENT AUTO 75 % (41-73); Platelet Count 158 K/mm3 (150-400); RDW Coefficient Variation 18.3 % (11.7-14.2); RDW Standard Deviation 58.4 fL (35.1-46.3); Red Blood Cell Count 3.11 M/mm3 (3.80-5.20); White Blood Cell Count 5.88 K/mm3 (4.00-11.30)
[2020-01-21 04:08] LABS: Albumin, Blood 3.3 g/dL (3.4-5.0); Anion Gap 5 mmol/L (6-16); Blood Urea Nitrogen 15 mg/dL (8-24); Bun/Creatinine Ratio 14.7 (12.0-20.0); CO2, Blood 33 mmol/L (21-32); Calcium, Blood 8.6 mg/dL (8.5-10.1); Chloride, Blood 107 mmol/L (98-108); Creatinine, Blood 1.02 mg/dL (0.40-1.00); Glomerular Filtration Rate 60 (60-); Glucose, Blood 86 mg/dL (70-99); Phosphorus, Blood 3.8 mg/dL (2.5-4.9); Sodium, Blood 145 mmol/L (136-145)
[2020-01-21] MEDS ORDERED: MULTI VITAMIN1 EACH PO (09:13)
[2020-01-21] MEDS ORDERED: NITR100CA PO (09:13)
[2020-01-21] MEDS ORDERED: VISBIOME PROBIOTIC PO (09:15)
[2020-01-21] MEDS ORDERED: DOXY100 PO (09:24)
[2020-01-23] MEDS ORDERED: ACET325 PO (13:54)
[2020-01-23] MEDS ORDERED: PRED20 PO (13:55)
== END 2020-01-21 14:22 | disposition home health service (06) | DRG 871 ==
LOC: ER 23:47 → ICUW 01-18 05:25 → PCU 01-18 19:13 → ENPENDDIS 01-21 10:19 → PCU 01-21 14:22
PROVIDERS: Family Medicine; Internal Medicine Critical Care Medicine; Student in an Organized Health Care Education/Training Program; ADMIT Internal Medicine
PROC: 06HY33Z Insertion of Infusion Device into Lower Vein, Percutaneous Approach (ICD-10-PCS; principal; 2020-01-17)
PROC: 5A1945Z Respiratory Ventilation, 24-96 Consecutive Hours (ICD-10-PCS; 2020-01-17)
DX: A41.51 Sepsis due to Escherichia coli [E. coli] (principal); E43 Unspecified severe protein-calorie malnutrition; J96.22 Acute and chronic respiratory failure with hypercapnia; S32.010A Wedge compression fracture of first lumbar vertebra, initial encounter for closed fracture; E27.3 Drug-induced adrenocortical insufficiency; R65.20 Severe sepsis without septic shock; Z20.828 Contact with and (suspected) exposure to other viral communicable diseases; G89.4 Chronic pain syndrome; M81.0 Age-related osteoporosis without current pathological fracture; Z93.0 Tracheostomy status; F41.9 Anxiety disorder, unspecified; F32.9 Major depressive disorder, single episode, unspecified; Z90.2 Acquired absence of lung [part of]; Z87.891 Personal history of nicotine dependence; Z96.22 Myringotomy tube(s) status; T38.0X5A Adverse effect of glucocorticoids and synthetic analogues, initial encounter; Y92.9 Unspecified place or not applicable; J44.9 Chronic obstructive pulmonary disease, unspecified; I95.9 Hypotension, unspecified; F41.0 Panic disorder [episodic paroxysmal anxiety]
CPT/HCPCS: 31720; 36415; 36430; 51701; 71045; 80048; 80069; 81001; 82803; 83605; 83735; 84484; 85025; 85027; 86850; 86900; 86901; 86923; 87040; 87077; 87086; 87186; 93005; 93010; 94640; 94644; 94762; 96361; 96365; 96375; 99285-25; A9270; A9270-GY; C1751; J0694; J0696; J1170; J1650; J1940; J2060; J2185; J2270; J7030; J7050; J7060; P9016; P9046

== ENCOUNTER 2020-02-09 00:13 | Emergency (ER) | payer OTHER ==
[~2020-02-09] VITALS: Ht 165.1 cm; Wt 63.5 kg
[~2020-02-09 00:13] MED LIST changes: +MULTI VITAMIN1 EACH PO; +NITR100CA PO; +VISBIOME PROBIOTIC PO
[2020-02-09 00:57] LABS: BASOPHILS ABSOLUTE AUTO 0.05 K/mm3 (0.00-0.23); BASOPHILS PERCENT AUTO 1 % (0-2); EOSINOPHILS ABSOLUTE AUTO 0.17 K/mm3 (0.00-0.68); EOSINOPHILS PERCENT AUTO 2 % (0-6); Hematocrit 36.9 % (33.0-51.0); Hemoglobin 10.5 g/dL (11.5-16.0); IMMATURE GRAN ABSOLUTE AUTO 0.04 K/mm3 (0.00-0.10); IMMATURE GRAN PERCENT AUTO 0 % (0-1); LYMPHOCYTES ABSOLUTE AUTO 0.97 K/mm3 (0.84-5.20); LYMPHOCYTES PERCENT AUTO 10 % (21-46); MONOCYTES ABSOLUTE AUTO 0.68 K/mm3 (0.16-1.47); MONOCYTES PERCENT AUTO 7 % (4-13); Mean Corpuscular HGB 25.4 pg (26.0-34.0); Mean Corpuscular HGB Conc 28.5 g/dL (31.5-36.5); Mean Corpuscular Volume 89 fL (80-100); Mean Platelet Volume 11.6 fL (9.1-12.4); NEUTROPHILS ABSOLUTE AUTO 7.49 K/mm3 (1.96-9.15); NEUTROPHILS PERCENT AUTO 80 % (41-73); Platelet Count 254 K/mm3 (150-400); RDW Coefficient Variation 16.6 % (11.7-14.2); RDW Standard Deviation 54.5 fL (35.1-46.3); Red Blood Cell Count 4.14 M/mm3 (3.80-5.20)
[2020-02-09 01:17] LABS: Alanine Aminotransfer (ALT/SGP 14 U/L (12-78); Albumin/Globulin Ratio 0.6 (0.8-1.8); Alk Phos 104 U/L (50-136); Anion Gap 2 mmol/L (6-16); Aspartate Aminotrans (AST/SGOT 9 U/L (12-37); Bilirubin, Total 0.2 mg/dL (0.1-1.0); Blood Urea Nitrogen 13 mg/dL (8-24); Bun/Creatinine Ratio 18.7 (12.0-20.0); CO2, Blood 38 mmol/L (21-32); Calcium, Blood 9.7 mg/dL (8.5-10.1); Chloride, Blood 101 mmol/L (98-108); Globulin, Blood 4.7 g/dL (2.2-4.0); Glomerular Filtration Rate >60 (60-); Glucose, Blood 110 mg/dL (70-99); Potassium, Blood 3.4 mmol/L (3.5-5.5); Sodium, Blood 141 mmol/L (136-145); Total Protein, Blood 7.7 g/dL (6.4-8.2); Troponin I <0.015 ng/mL (0.000-0.040)
== END 2020-02-09 02:05 | disposition home or self-care (01) ==
LOC: ER 00:13
PROVIDERS: Emergency Medicine
DX: J95.09 Other tracheostomy complication (principal); R51.9 Headache, unspecified; J44.9 Chronic obstructive pulmonary disease, unspecified; F41.9 Anxiety disorder, unspecified; F32.9 Major depressive disorder, single episode, unspecified; I10 Essential (primary) hypertension; Z87.891 Personal history of nicotine dependence; Z79.899 Other long term (current) drug therapy
CPT/HCPCS: 31720; 36415; 71045; 80053; 83605; 83880; 84484; 85025; 93005; 93010; 96374; 96375; 99284-25; J0780; J1885

== ENCOUNTER 2020-02-29 06:36 | Inpatient (IN) | payer OTHER ==
[~2020-02-29] VITALS: Ht 157.5 cm; Wt 59.0 kg
[~2020-02-29 06:36] MED LIST changes: +PREDNISONE10 MG PO
[2020-02-29 07:03] LABS: Base Excess Venous 11.1 mmol/L; Bicarbonate Venous 33.5 mmol/L (24.0-30.0); PCO2 Venous 51.3 mmHg (38-42); PO2 Venous 92.1 mmHg (38-42); pH Blood Venous 7.44 (7.34-7.37)
[2020-02-29 07:07] LABS: BASOPHILS ABSOLUTE AUTO 0.08 K/mm3 (0.00-0.23); BASOPHILS PERCENT AUTO 1 % (0-2); EOSINOPHILS ABSOLUTE AUTO 0.18 K/mm3 (0.00-0.68); EOSINOPHILS PERCENT AUTO 1 % (0-6); Hematocrit 31.8 % (33.0-51.0); Hemoglobin 9.1 g/dL (11.5-16.0); IMMATURE GRAN ABSOLUTE AUTO 0.06 K/mm3 (0.00-0.10); IMMATURE GRAN PERCENT AUTO 0 % (0-1); LYMPHOCYTES ABSOLUTE AUTO 0.69 K/mm3 (0.84-5.20); LYMPHOCYTES PERCENT AUTO 5 % (21-46); MONOCYTES ABSOLUTE AUTO 0.75 K/mm3 (0.16-1.47); MONOCYTES PERCENT AUTO 5 % (4-13); Mean Corpuscular HGB 25.8 pg (26.0-34.0); Mean Corpuscular HGB Conc 28.6 g/dL (31.5-36.5); Mean Corpuscular Volume 90 fL (80-100); Mean Platelet Volume 12.1 fL (9.1-12.4); NEUTROPHILS ABSOLUTE AUTO 12.94 K/mm3 (1.96-9.15); NEUTROPHILS PERCENT AUTO 88 % (41-73); Platelet Count 311 K/mm3 (150-400); RDW Coefficient Variation 17.2 % (11.7-14.2); RDW Standard Deviation 56.8 fL (35.1-46.3); Red Blood Cell Count 3.53 M/mm3 (3.80-5.20)
[2020-02-29 07:31] LABS: Alanine Aminotransfer (ALT/SGP 12 U/L (12-78); Albumin, Blood 2.1 g/dL (3.4-5.0); Albumin/Globulin Ratio 0.4 (0.8-1.8); Alk Phos 109 U/L (50-136); Anion Gap 4 mmol/L (6-16); Aspartate Aminotrans (AST/SGOT 8 U/L (12-37); Bilirubin, Total 0.2 mg/dL (0.1-1.0); Blood Urea Nitrogen 15 mg/dL (8-24); Bun/Creatinine Ratio 22.5 (12.0-20.0); CO2, Blood 34 mmol/L (21-32); Calcium, Blood 9.1 mg/dL (8.5-10.1); Chloride, Blood 103 mmol/L (98-108); Creatinine, Blood 0.67 mg/dL (0.40-1.00); Globulin, Blood 5.1 g/dL (2.2-4.0); Glomerular Filtration Rate >60 (60-); Glucose, Blood 112 mg/dL (70-99); Potassium, Blood 3.6 mmol/L (3.5-5.5); Sodium, Blood 141 mmol/L (136-145); Total Protein, Blood 7.2 g/dL (6.4-8.2); Troponin I <0.015 ng/mL (0.000-0.040)
[2020-02-29 07:49] LABS: Source, Urine Catheter
[2020-02-29 07:53] LABS: Bilirubin, Urine Neg (Neg); Blood, Urine 3+ (Neg); Color, Urine Yellow (P-Yellow); Glucose Qualitative, Urine Neg (Neg); Ketones, Urine Neg (Neg); Leukocyte Esterase, Urine Neg (Neg); Nitrite, Urine Neg (Neg); Protein, Urine 2+ (Neg); Specific Gravity, Urine 1.025 (1.003-1.022); Urobilinogen, Urine NORM (Normal)
[2020-02-29 08:06] LABS: Bacteria Few /hpf; Mucus Heavy (0-Heavy); Squamous Epithelial Cells Not Seen /hpf (Few); White Blood Cells, Urine 0-2 /hpf (0-5)
[2020-02-29 08:07] LABS: Appearance, Urine Hazy (Clear); Hyaline Casts 0-2 /lpf (0-2)
[2020-02-29 08:28] LABS: Influenza A Negative (NEGATIVE); Influenza B Negative (NEGATIVE)
--- NOTE | 2020-02-29 10:00 | NUR ---
ADMIT PT ARRIVES TO ICU 7 AT 0945 VIA ER BED. PT IS AWAKE, ALERT, AND ORIENTED UPON ARRIVAL. PT WITH TRACH IN PLACE ON HOME VENT WITH 5L O2 BLEED IN. PT ABLE TO MOUTH WORDS AND MAKE NEEDS KNOWN. PT WITH COPIOUS SECRETIONS WITH TRACH SUCTIONING. VITAL SIGNS STABLE. MEDIPORT TO RIGHT UPPER CHEST ACCESSED WITH VANCO INFUSING UPON ARRIVAL. ZENDEJAS IN PLACE WITH YELLOW OUTPUT NOTED. PT ASKING FOR ATIVAN AT THIS TIME. PT APPEARS ANXIOUS AND RESTLESS IN BED. NO FAMILY AT BEDSIDE. WILL CONTINUE TO MONITOR AND MEDICATE PER ORDERS.
--- NOTE | 2020-02-29 15:04 | NUR ---
TRANSFER TO PCU REPORT CALLED VIA PHONE. ALL QUESTIONS ANSWERED. PT TAKEN TO ROOM PCU 15 VIA BED WITH ASSISTANCE FROM [employer] AND RT. PT TRANSFERED WITH HOME VENT AND ALL PT BELONGINGS.
--- NOTE | 2020-02-29 18:29 | NUR ---
SHIFT SUMMARY; IN HOUSE TRANSFER FROM ICU. HOME VENT WITH 5L O2. SLEEPY BUT WAKES TO VERBAL STIMULI. VSS, ZENDEJAS CATH IN PLACE DRAINING CLEAR YELLOW URINE, MEDICATED PER ORDERS WITH IV ABX TO MEDIPORT, ATIVAN Q2 PRN AND PAIN MEDS. WILL CONTINUE TO MONITOR AND TREAT UNTIL CHANGE OF SHIFT.
[2020-03-01 05:02] LABS: Hematocrit 27.1 % (33.0-51.0); Hemoglobin 7.7 g/dL (11.5-16.0); Mean Corpuscular HGB 25.4 pg (26.0-34.0); Mean Corpuscular HGB Conc 28.4 g/dL (31.5-36.5); Mean Corpuscular Volume 89 fL (80-100); Mean Platelet Volume 11.9 fL (9.1-12.4); Platelet Count 304 K/mm3 (150-400); RDW Coefficient Variation 16.9 % (11.7-14.2); RDW Standard Deviation 55.7 fL (35.1-46.3); Red Blood Cell Count 3.03 M/mm3 (3.80-5.20); White Blood Cell Count 10.84 K/mm3 (4.00-11.30)
[2020-03-01 05:21] LABS: Anion Gap 3 mmol/L (6-16); Blood Urea Nitrogen 21 mg/dL (8-24); Bun/Creatinine Ratio 30.2 (12.0-20.0); CO2, Blood 36 mmol/L (21-32); Calcium, Blood 9.1 mg/dL (8.5-10.1); Chloride, Blood 105 mmol/L (98-108); Glomerular Filtration Rate >60 (60-); Glucose, Blood 131 mg/dL (70-99); Potassium, Blood 3.7 mmol/L (3.5-5.5); Sodium, Blood 144 mmol/L (136-145)
--- NOTE | 2020-03-01 05:37 | NUR ---
HYPOTENSION PT HAS BEEN HYPOTENSIVE THIS SHIFT. CALLED MADE TO DR. RICHEY AT APPROX [id number] TO NOTIFY OF BP: 86/56. MD RICHEY W/ ORDERS FOR 500 CC BOLUS OF NS. BP REASSESSMENT AFTER BOLUS: 84/48. CALLED MADE TO DR. FLORES AGAIN TO NOTIFY. MD RICHEY WITH ORDERS FOR SECOND 500 CC BOLUS OF NS. WILL CONTINUE TO MONITOR.
--- NOTE | 2020-03-01 06:34 | NUR ---
SHIFT SUMMARY PT A&O X4. SP02>90% ON HOME VENT WITH TRACH W/ INLINE SUCTION. PT SELF SUCTIONS. PT HAD AN EPISODE OF NOT WANTING TO SELF SUCTION. STATED, "I CANT". PT WAS ENCOURAGED TO TRY AND WAS SUCCESSFUL IN SUCTIONING SELF. TELEMETRY READS SR W/ PVCS, HR 80'S-90'S. PT HAS BEEN HYPOTENSIVE THIS SHIFT, SEE PREVIOUS NOTE. PT C/O OF BACK PAIN. PLACED HEATING PAD ON PT'S BACK AND ENCOURAGED REPOSITIONING. IV KVO NS INFUSING THROUGH PT'S MEDIPORT T/O SHIFT. IV ANTIBIOTICS GIVEN PER EMAR. ZENDEJAS CATHETER DRAINING YELLOW, CLEAR URINE. WILL CONTINUE TO MONITOR.
--- NOTE | 2020-03-01 07:04 | NUR ---
MD RICHEY NOTIFIED OF AM HGB LEVEL W/ INSTRUCTION TO CONTINUE TO MONITOR.
--- NOTE | 2020-03-01 18:07 | NUR ---
SHIFT SUMMARY; A/A/OX4 THROUGHOUT SHIFT TODAY. ZENDEJAS CATH IN PLACE DRAINING CLEAR YELLOW URINE. REPOSITIONS SELF IN BED, TRACH IN PLACE WITH HOME VENT. SUCTION AND TRACH CARE BY RT. 5L 02 BLEED IN TO VENT WHICH IS BASELINE FOR PT. BIOX 94-97%. NO ACUTE MEDICAL CHANGES DURING SHIFT, WILL CONTINUE TO MONITOR AND TREAT UNTIL CHANGE OF SHIFT.
--- NOTE | 2020-03-01 23:34 | NUR ---
CARE ASSUMPTION PT A&0X4. CALM AND COOPERATIVE. SP02>90% W/ HOME VENT, TRACH W/ INLINE SUCTION. PT SELF SUCTIONS. TELEMETRY READS SR W/PACS, HR 80'S. NS INFUSING KVO TO PT'S ACCESSED MEDIPORT. ZENDEJAS DRAINING YELLOW URINE. PT C/O OF 910 BACK PAIN. MEDICATED W/ NORCO PER EMAR. HEATING PAD BEHIND BACK. ENCOURAGED REPOSITIONING. CALL LIGHT IN REACH. WILL CONTINUE TO MONITOR.
[2020-03-02 05:34] LABS: Hematocrit 29.2 % (33.0-51.0)
--- NOTE | 2020-03-02 05:36 | NUR ---
SHIFT SUMMARY NO ACUTE CHANGES THIS SHIFT. PT A&OX4, COOPERATIVE. SP02>96% ON HOME VENT W/ TRACH. INLINE SUCTION W/ 5L O2 BLEED IN. PT SELF SUCTIONS. TELEMETRY READS SR W/ PACS, HR 100'S-110'S. ZENDEJAS CATHETER DRAINING YELLOW URINE. PT C/O OF BACK PAIN THIS SHIFT. HEATING PAD PLACED ON BACK, ENCOURAGED REPOSITIONING. MEDICATED PER EMAR. MEDIPORT INFUSING KVO NS T/O SHIFT. PT SLEPT ON AND OFF T/O THE SHIFT. PT STATES: "THINK i MIGHT BE GOING HOME IN THE MORNING." AND STATES SHE IS LOOKING FORWARD TO GOING HOME. CALL LIGHT IN REACH. WILL CONTINUE TO MONITOR.
[2020-03-02 10:30] LABS: Vancomycin, Trough 13.5 ug/mL (5.0-10.0)
--- NOTE | 2020-03-02 16:53 | NUR ---
ALL AIR REMOVED FROM TR BAND BY 1630. RIGHT RADIAL PULSE PALPABLE, MOVES ALL FIVE EXTREMTIES WITHOUT DIFFICULTY. CAP REFILL <3.
--- NOTE | 2020-03-02 17:20 | NUR ---
SHIFT SUMMARY; A/A/OX4 DURING SHIFT. SLEEPS MOST OF DAY BUT EASILY WAKES TO VERBAL STIMULI. REMAINS ON HOME VENT WITH 5L O2. UP TO BEDSIDE COMMODE WITH MINIMAL ASSISTANCE DURING SHIFT. REQUESTS PAIN MEDS AND ATIVAN MULTIPLE TIMES DURING SHIFT. MEDICATED PER ORDERS. HEATING PAD USED FOR COMFORT. NO ACUTE MEDICAL CHANGES, WILL CONTINUE TO TREAT AND MONITOR UNTIL CHANGE OF SHIFT.
[2020-03-03 04:25] LABS: Albumin, Blood 1.9 g/dL (3.4-5.0); Anion Gap 2 mmol/L (6-16); Blood Urea Nitrogen 15 mg/dL (8-24); Bun/Creatinine Ratio 22.1 (12.0-20.0); CO2, Blood 37 mmol/L (21-32); Calcium, Blood 8.8 mg/dL (8.5-10.1); Chloride, Blood 106 mmol/L (98-108); Creatinine, Blood 0.68 mg/dL (0.40-1.00); Glomerular Filtration Rate >60 (60-); Glucose, Blood 98 mg/dL (70-99); Phosphorus, Blood 1.5 mg/dL (2.5-4.9); Potassium, Blood 3.5 mmol/L (3.5-5.5); Sodium, Blood 145 mmol/L (136-145)
--- NOTE | 2020-03-03 05:35 | NUR ---
PATIENT DID WELL SLEEPING. SHE WOKE FOR VSs, INHALED TREATMENTS AND BSC.HER PAIN HAS BEEN UNDERCONTROL, AND SHE HAS HAD 2 DOSES OF IV ATIVAN FOR ANXIETY IN THE PAST 12 HOURS. PATIENT IS PREPARED TO GO HOME THIS AM. CALL LIGHT IN REACH.
--- NOTE | 2020-03-03 15:46 | NUR ---
HEART RATE NOTED TO BE IN 90'S FOR THE LAST 2 HOURS AFTER BEING TOLD WAS NOT LEAVING TODAY. CALM AND COOPERATIVE, SLEEPING IN ROOM NO DISTRESS. NOTIFIED DR. FELIX AND DR. COREAS. WILL PLAN FOR DISCHARGE.
--- NOTE | 2020-03-03 16:30 | NUR ---
ASSUMED CARE RECIEVED REPORT FROM PIERCE HIGHTOWER. PT ON HOME TRACH, WITH HOME TRACH SETTINGS. PT'S VS STABLE. HR IN 90'S. OXYGEN SATURATION MAINTAINED ABOVE 90%. PT REPORTS NO CP OR PRESSURE.
== END 2020-03-03 18:20 | disposition home or self-care (01) | DRG 871 ==
LOC: ER 06:36 → ICUW 08:39 → PCU 08:39 → ICUE 09:29 → PCU 15:07
PROVIDERS: Emergency Medicine; Family Medicine; Internal Medicine; Pharmacist; ADMIT Internal Medicine
PROC: 5A1945Z Respiratory Ventilation, 24-96 Consecutive Hours (ICD-10-PCS; principal; 2020-02-29)
DX: A41.02 Sepsis due to Methicillin resistant Staphylococcus aureus (principal); J96.22 Acute and chronic respiratory failure with hypercapnia; E43 Unspecified severe protein-calorie malnutrition; J96.21 Acute and chronic respiratory failure with hypoxia; J44.1 Chronic obstructive pulmonary disease with (acute) exacerbation; E27.3 Drug-induced adrenocortical insufficiency; Z20.828 Contact with and (suspected) exposure to other viral communicable diseases; M81.0 Age-related osteoporosis without current pathological fracture; Z87.891 Personal history of nicotine dependence; Z93.0 Tracheostomy status; D63.8 Anemia in other chronic diseases classified elsewhere; G89.29 Other chronic pain; F41.9 Anxiety disorder, unspecified; I95.9 Hypotension, unspecified; J20.9 Acute bronchitis, unspecified; Z68.22 Body mass index [BMI] 22.0-22.9, adult
CPT/HCPCS: 31720; 36415; 51702; 71045; 73502; 80048; 80053; 80069; 80202; 81001; 82803; 83605; 84145; 84484; 85014; 85018; 85025; 85027; 87040; 87070; 87077; 87147; 87186; 87205; 87804; 93005; 93010; 94640; 94762; 96361; 96365; 96375; 96376; 99285-25; A9270-GY; J0713; J1642; J1650; J2060; J2930; J3370; J7030; J7040; J7060; J7512; U0003

== ENCOUNTER 2020-03-25 01:41 | Inpatient (IN) | payer OTHER ==
[~2020-03-25] VITALS: Ht 165.1 cm; Wt 79.8 kg
[2020-03-25 02:11] LABS: PCO2 Arterial 95.9 mmHg (35-45); PO2 Arterial 45.5 mmHg (80-100); pH Blood Arterial 7.27 (7.35-7.45)
[2020-03-25 02:50] LABS: BASOPHILS ABSOLUTE AUTO 0.09 K/mm3 (0.00-0.23); BASOPHILS PERCENT AUTO 1 % (0-2); EOSINOPHILS ABSOLUTE AUTO 0.27 K/mm3 (0.00-0.68); EOSINOPHILS PERCENT AUTO 2 % (0-6); Hematocrit 31.7 % (33.0-51.0); Hemoglobin 8.5 g/dL (11.5-16.0); IMMATURE GRAN ABSOLUTE AUTO 0.06 K/mm3 (0.00-0.10); IMMATURE GRAN PERCENT AUTO 1 % (0-1); LYMPHOCYTES ABSOLUTE AUTO 1.47 K/mm3 (0.84-5.20); LYMPHOCYTES PERCENT AUTO 12 % (21-46); MONOCYTES ABSOLUTE AUTO 0.73 K/mm3 (0.16-1.47); MONOCYTES PERCENT AUTO 6 % (4-13); Mean Corpuscular HGB 25.8 pg (26.0-34.0); Mean Corpuscular HGB Conc 26.8 g/dL (31.5-36.5); Mean Corpuscular Volume 96 fL (80-100); Mean Platelet Volume 10.4 fL (9.1-12.4); NEUTROPHILS ABSOLUTE AUTO 9.59 K/mm3 (1.96-9.15); NEUTROPHILS PERCENT AUTO 79 % (41-73); Platelet Count 361 K/mm3 (150-400); RDW Coefficient Variation 17.8 % (11.7-14.2); RDW Standard Deviation 63.2 fL (35.1-46.3); White Blood Cell Count 12.21 K/mm3 (4.00-11.30)
[2020-03-25 03:09] LABS: Alanine Aminotransfer (ALT/SGP 11 U/L (12-78); Albumin/Globulin Ratio 0.5 (0.8-1.8); Alk Phos 105 U/L (50-136); Anion Gap 0 mmol/L (6-16); Aspartate Aminotrans (AST/SGOT 13 U/L (12-37); Bilirubin, Total 0.2 mg/dL (0.1-1.0); Blood Urea Nitrogen 16 mg/dL (8-24); Bun/Creatinine Ratio 25.1 (12.0-20.0); CO2, Blood 43 mmol/L (21-32); Calcium, Blood 9.5 mg/dL (8.5-10.1); Chloride, Blood 100 mmol/L (98-108); Creatinine, Blood 0.64 mg/dL (0.40-1.00); Globulin, Blood 5.7 g/dL (2.2-4.0); Glomerular Filtration Rate >60 (60-); Glucose, Blood 86 mg/dL (70-99); Potassium, Blood 4.2 mmol/L (3.5-5.5); Sodium, Blood 143 mmol/L (136-145); Total Protein, Blood 8.7 g/dL (6.4-8.2); Troponin I <0.015 ng/mL (0.000-0.040)
[2020-03-25 04:08] LABS: Adenovirus Not Detected (NOT DETECT); Bordetella pertussis Not Detected (NOT DETECT); Chlamydophila pneumoniae Not Detected (NOT DETECT); Coronavirus 229E Not Detected (NOT DETECT); Coronavirus HKU1 Not Detected (NOT DETECT); Coronavirus NL63 Not Detected (NOT DETECT); Coronavirus OC43 Not Detected (NOT DETECT); Human Metapneumovirus Not Detected (NOT DETECT); Human Rhinovirus/Enterovirus Not Detected (NOT DETECT); Influenza A/2009-H1 Not Detected (NOT DETECT); Influenza A/H1 Not Detected (NOT DETECT); Influenza A/H3 Not Detected (NOT DETECT); Influenza B Not Detected (NOT DETECT); Mycoplasma pneumoniae Not Detected (NOT DETECT); Parainfluenza Virus 1 Not Detected (NOT DETECT); Parainfluenza Virus 2 Not Detected (NOT DETECT); Parainfluenza Virus 3 Not Detected (NOT DETECT); Parainfluenza Virus 4 Not Detected (NOT DETECT); Respiratory Syncytial Virus Not Detected (NOT DETECT); SARS-Cov-2 (COVID-19), BioFire Not Detected (NOT DETECT)
[2020-03-25 04:08] LABS: PCO2 Arterial 64.3 mmHg (35-45); PO2 Arterial 68.9 mmHg (80-100); pH Blood Arterial 7.42 (7.35-7.45)
--- NOTE | 2020-03-25 06:46 | NUR ---
PT TO ICU 10 FROM ED AT 0615. PT TRANSFERRED TO ICU BED WITH SLIDER SHEET. PT ARRIVES ON HOSPITAL VENT, SETTINGS 16/500/5/50% WITH SATS>90%. PT ALERT/ORIENTED AND ABLE TO FOLLOW COMMANDS. VSS AT THIS TIME. WILL REPORT TO DAYSHIFT NURSE.
--- NOTE | 2020-03-25 09:16 | NUR ---
AM NOTE... ASSUMED CARE OF PT APROX 0700, PT IS A&Ox4 BUT VERY SLEEPY AT THIS TIME. PT IS ON A HOSPTIAL VENT, AT AC:16/500/5/45% WITH O2 SATS>94%. L/S COARSE RHONCHI HEARD T/O. PT IS IN SINUS TACH IN THE 100'S-120'S. BP HYPOTENSIVE WITH SBP IN THE 70'S-90'S PROVIDER IS AWARE, A 500MLS BOLUS WAS GIVEN, PT'S SYSTOLIC PRESSURES IMPROVED SLIGHLTY TO MORE 80'S-90'S. NO EDEMA WAS NOTED ON ASSESSMENT. BT PRESENT AND NORMOACTIVE, ABD IS SOFT AND NONTENDER TO PALP. PT WAKES TO LOUD VERBAL STIMULI AND TOUCH BUT FALLS BACK A SLEEP QUICKLY. BOTH PROVIDERS IN THE ROOM THIS AM AND UPDATED. CALL LIGHT IN REACH WILL CONTINUE TO MONITOR.
--- NOTE | 2020-03-25 14:22 | NUR ---
PT UPDATE.... PT'S HOME VENT SUPPLIER TOOK THE PT'S VENT FOR SERVICING. PT'S VS STABLE AT THIS TIME. PT IS STILL VERY SLEEPY BUT ABLE TO STAY AWAKE A LITTLE LONGER THAN THIS MORNING. PT'S VS STILL STABLE BUT BP'S HAVE BEEN ON THE SOFT SIDE BUT MAPS HAVE BEEN >60. WILL CONTINUE TO MONITOR.
--- NOTE | 2020-03-25 18:05 | NUR ---
SHIFT SUMMARY.... NO ACUTE NEGATIVE CHANGES NOTED THIS SHIFT. PT'S VS HAVE BEEN STABLE T/O SHIFT BUT HER BP CONTINUES TO BE ON THE SOFT SIDE WITH SBP 70'S-90'S. L/S CONTINUE TO HAVE COARSE RHONCHI T/O BUT SECRETIONS ARE MORE THIN THAT THEY WERE THIS MORNING. PT'S HOME VENT IS STILL AT THE SHOP AND WON'T BE BACK IN THE FACILITY UNTIL TOMORROW. VENT SETTINGS ARE AC: 16/500/5/40% FIO2. PT'S HR IMPROVED SHE IS IN THE 90'S-100'S SINUS/SINUS TACH. PT HAS NOT VOIDED ALL SHIFT AND HAS NOT HAD A BM. BLADDER SCAN WAS DONE AND IT FOUND 276MLS OF URINE. PT DENIES HAVING TO VOID AND SAT ON THE BEDPAN FOR APROX 20MINS ATTEMPTING TO VOID. ICU PROVIDER WAS NOTIFIED AND A STANDING ORDER OBTAINED TO INSERT ZENDEJAS IF BLADDER SCAN SHOWS >500MLS. PT WAS MEDICATED FOR PAIN PER EMAR ONCE THIS SHIFT. PT HAS NOT EATEN THIS SHIFT BUT ASKED TO HOLD HER DINNER TRAY BECAUSE SHE MIGHT BE HUNGERY LATER. CALL LIGHT IN REACH WILL CONTINUE TO MONITOR UNTIL REPORT IS GIVEN TO ONCOMING RN.
--- NOTE | 2020-03-25 19:40 | NUR ---
ASSUMED CARE OF PT, REPORT RCV'D FROM PIERCE DELEON. PT ALERT AND ORIENTED LAYING SUPINE ON HOSPITAL VENT. VENT SETTINGS AC 16/500/5/40%. PT COMPLAINS OF BACK PAIN AND ANXIETY, TREATED PER EMAR. PT ABLE TO SWALLOW PILLS WITHOUT DIFFICULTY WITH SIPS OF WATER. BLADDER SCAN SHOS URINE OF 371 ML. WILL CONTINUE TO BLADDER SCAN Q6 PRN. ORDER TO INSERT ZENDEJAS CATH IF URINE>500 ML. SEE FULL SHIFT ASSESSMENT.
[2020-03-26 04:10] LABS: Source, Urine Catheter
[2020-03-26 04:18] LABS: Appearance, Urine Clear (Clear); Bilirubin, Urine Neg (Neg); Blood, Urine 2+ (Neg); Color, Urine Amber (P-Yellow); Glucose Qualitative, Urine Neg (Neg); Ketones, Urine Neg (Neg); Leukocyte Esterase, Urine Neg (Neg); Nitrite, Urine Neg (Neg); Protein, Urine 1+ (Neg); Specific Gravity, Urine 1.005 (1.003-1.022); Urobilinogen, Urine NORM (Normal)
[2020-03-26 04:32] LABS: Amorphous Light (0-Heavy); Bacteria Few /hpf; Hyaline Casts 0-2 /lpf (0-2); Mucus Light (0-Heavy); Squamous Epithelial Cells Not Seen /hpf (Few)
[2020-03-26 04:48] LABS: Anion Gap 4 mmol/L (6-16); Blood Urea Nitrogen 21 mg/dL (8-24); Bun/Creatinine Ratio 28.2 (12.0-20.0); CO2, Blood 32 mmol/L (21-32); Calcium, Blood 8.7 mg/dL (8.5-10.1); Chloride, Blood 106 mmol/L (98-108); Creatinine, Blood 0.75 mg/dL (0.40-1.00); Glomerular Filtration Rate >60 (60-); Glucose, Blood 74 mg/dL (70-99); Potassium, Blood 4.2 mmol/L (3.5-5.5); Sodium, Blood 142 mmol/L (136-145); Vancomycin, Trough 19.1 ug/mL (5.0-10.0)
[2020-03-26 05:03] LABS: BASOPHILS ABSOLUTE AUTO 0.07 K/mm3 (0.00-0.23); BASOPHILS PERCENT AUTO 1 % (0-2); EOSINOPHILS ABSOLUTE AUTO 0.22 K/mm3 (0.00-0.68); EOSINOPHILS PERCENT AUTO 3 % (0-6); Hematocrit 27.2 % (33.0-51.0); Hemoglobin 7.8 g/dL (11.5-16.0); IMMATURE GRAN ABSOLUTE AUTO 0.02 K/mm3 (0.00-0.10); IMMATURE GRAN PERCENT AUTO 0 % (0-1); LYMPHOCYTES ABSOLUTE AUTO 1.21 K/mm3 (0.84-5.20); LYMPHOCYTES PERCENT AUTO 15 % (21-46); MONOCYTES ABSOLUTE AUTO 0.33 K/mm3 (0.16-1.47); MONOCYTES PERCENT AUTO 4 % (4-13); Mean Corpuscular HGB Conc 28.7 g/dL (31.5-36.5); Mean Platelet Volume 10.6 fL (9.1-12.4); NEUTROPHILS ABSOLUTE AUTO 6.17 K/mm3 (1.96-9.15); NEUTROPHILS PERCENT AUTO 77 % (41-73); Platelet Count 224 K/mm3 (150-400); RDW Coefficient Variation 18.6 % (11.7-14.2); RDW Standard Deviation 61.5 fL (35.1-46.3); White Blood Cell Count 8.02 K/mm3 (4.00-11.30)
[2020-03-26 05:04] LABS: Mean Corpuscular Volume 91 fL (80-100)
[2020-03-26 05:15] LABS: PCO2 Arterial 54.7 mmHg (35-45); PO2 Arterial 56.1 mmHg (80-100); pH Blood Arterial 7.44 (7.35-7.45)
--- NOTE | 2020-03-26 05:57 | NUR ---
SHIFT SUMMARY NO ACUTE CHANGES OVERNIGHT. VENT SETTINGS AC 16/500/5/35%. PT'S SAT >90%. MODERATE AMOUNT OF THICK YELLOW/EMERSON SECRETIONS. PT REMAINED ALERT AND ORIENTED OVERNIGHT. PT APPEARS LESS SOMULENT THIS MORNING AND MORE INTERACTIVE WITH STAFF AND PARTICIPATING WITH CARE. MEDICATED PER JUL FOR 2 EPISODES OF ANXIETY FOLLOWING PERIOD OF COUGHING/SUCTIONING. PT HYPOTENSIVE ON OCCASION WITH MAPS 58-72. PT EATING AND DRINKING WITHOUT ISSUE. PT DENIES NEEDS AT THIS TIME. WILL REPORT TO DAYSHIFT NURSE.
--- NOTE | 2020-03-26 07:30 | NUR ---
AM NOTE... ASSUMED CARE OF PT APROX 0700. PT IS A&Ox4 AND MORE AWAKE THIS AM THAN YESTERDAY. PT'S VS STABLE AT THIS TIME. BP CONTINUES TO BE ON THE SOFT SIDE BUT MAPS>60. L/S COARSE T/O VENT SETTINGS ARE AC:16/500/5/35% WITH O2 SATS>90% ZENDEJAS PLACED ON NOC SHIFT D/T RETENTION. NO EDEMA NOTED ON ASSESSMENT. BT PRESENT AND NORMOACITVE ABD IS SLIGHTLY FIRM TO PAlP PT DENIES PAIN. FOELY PATENT AND DRAINING TO GRAVITY. PT IS ON THE HOSPITAL'S VENT AND WHEN SELVIN RETURNS HER HOME VENT RT WILL SWITCH HER AND SEE HOW SHE FEELS WITH HER HOME VENT. CALL LIGHT IN REACH WILL CONTINUE TO MONITOR.
--- NOTE | 2020-03-26 17:22 | NUR ---
SHIFT SUMMARY... NO ACUTE NEGATIVE CHANGES NOTED THIS SHIFT. PT'S VS STABLE T/O SHIFT. PT WAS SWITCHED TO HER NEW VENT ARPOX 1600 SHE HAS BEEN STABLE SINCE THE SWITCH. PT HAS BEEN C/O OF A HEADACHE, PT HAS BEEN MEDICATED PER EMAR BUT PT STATES THAT THIS HAS NOT HELPED. PT IS ON HER HOME DOSE OF PAIN MEDICATIONS. PT CONTINUES TO BE MORE AWAKE AND ALERT THAN SHE WAS YESTERDAY. PT HAS BEEN INDEPENDENT IN THE BED. CALL LIGHT IN REACH WILL CONTINUE TO MONITOR UNTIL REPORT IS GIVEN TO ONCOMING RN.
[2020-03-26 23:34] LABS: Vancomycin, Trough 21.9 ug/mL (5.0-10.0)
[2020-03-27 03:31] LABS: BASOPHILS ABSOLUTE AUTO 0.05 K/mm3 (0.00-0.23); BASOPHILS PERCENT AUTO 1 % (0-2); EOSINOPHILS ABSOLUTE AUTO 0.27 K/mm3 (0.00-0.68); EOSINOPHILS PERCENT AUTO 4 % (0-6); Hematocrit 30.4 % (33.0-51.0); Hemoglobin 8.6 g/dL (11.5-16.0); IMMATURE GRAN ABSOLUTE AUTO 0.02 K/mm3 (0.00-0.10); IMMATURE GRAN PERCENT AUTO 0 % (0-1); LYMPHOCYTES ABSOLUTE AUTO 1.11 K/mm3 (0.84-5.20); LYMPHOCYTES PERCENT AUTO 18 % (21-46); MONOCYTES ABSOLUTE AUTO 0.35 K/mm3 (0.16-1.47); MONOCYTES PERCENT AUTO 6 % (4-13); Mean Corpuscular HGB 26.1 pg (26.0-34.0); Mean Corpuscular HGB Conc 28.3 g/dL (31.5-36.5); Mean Corpuscular Volume 92 fL (80-100); Mean Platelet Volume 10.8 fL (9.1-12.4); NEUTROPHILS ABSOLUTE AUTO 4.44 K/mm3 (1.96-9.15); NEUTROPHILS PERCENT AUTO 71 % (41-73); Platelet Count 248 K/mm3 (150-400); RDW Coefficient Variation 18.5 % (11.7-14.2); RDW Standard Deviation 62.6 fL (35.1-46.3); Red Blood Cell Count 3.29 M/mm3 (3.80-5.20); White Blood Cell Count 6.24 K/mm3 (4.00-11.30)
[2020-03-27 03:46] LABS: Anion Gap 1 mmol/L (6-16); Blood Urea Nitrogen 18 mg/dL (8-24); Bun/Creatinine Ratio 19.2 (12.0-20.0); CO2, Blood 38 mmol/L (21-32); Calcium, Blood 8.7 mg/dL (8.5-10.1); Chloride, Blood 108 mmol/L (98-108); Creatinine, Blood 0.94 mg/dL (0.40-1.00); Glomerular Filtration Rate >60 (60-); Glucose, Blood 109 mg/dL (70-99); Potassium, Blood 3.3 mmol/L (3.5-5.5); Sodium, Blood 147 mmol/L (136-145)
--- NOTE | 2020-03-27 06:43 | NUR ---
SHIFT SUMMARY PATIENT PLEASENT AND COOPERATIVE THROUGHOUT THE NIGHT. PATIENT APPEARED TO SLEEP COMFORTABLY THROUGHOUT MOST OF THE NIGHT. PATIENT MEDICATED FOR ANXIETY PER REQUEST AND PER EMAR. PATIENT CURRENTLY APPEARS TO BE SLEEPING. PATIENT ON HOME VENT, SETTINGS BEING MANAGED BY RESPIRATORY THERAPY. CALL LIGHT IN REACH. WILL CONTINUE TO MONITOR PATIENT AND REPORT TO ONCOMING RN.
--- NOTE | 2020-03-27 18:20 | NUR ---
SHIFT SUMMARY PT ALERT AND ORIENTEDx4 ON HOME VENT SETTINGS VIA TRACH. PT REQUIRED ASSISTANCE MULTIPLE TIMES AFTER HER TRACH WOULD "POP OFF". TRACH CANULA WAS REINSERTED AND RT CHECKED MULTIPLE TIMES FOR ANY PROBLEMS WITH ATTACHMENT. VITALS HAVE BEEN STABLE, MONITOR HAS SHOWN PT TO BE IN SINUS RHYTHM.
--- NOTE | 2020-03-27 20:01 | NUR ---
ASSUMED CARE RECIEVED PT FROM KATY BEDSIDE; PT A&O X3-4; C/O CHRONIC PAIN; HEAT PAD IN PLACE; MEDICATE PER EMAR; VSS; RT AT BEDSIDE TO ASSESS; PT DANGLING AT BEDSIDE, NO DISTRESS NOTED; CALL LIGHT IN PLACE; BED IN LOWEST POSITION; WILL CONTINUE TO MONITOR CLOSELY.
--- NOTE | 2020-03-28 04:46 | NUR ---
SHIFT SUMMARY PT A&O X 3-4; COMPLIANT W/ CARE; VSS; NSR NOTED ON MONITOR; O2 SATS >93 ON HOME VENT W/ 6L BLEED IN; RT TO ASSESS AND ADJUST; PT C/O BACK PAIN T/O SHIFT; HEAT PAD IN PLACE; REPOSITIONING ENCOURAGED; NORCO ADMINISTERED 2 X THIS SHIFT; PO MEDS TAKEN WHOLE W/ NO DIFFICULTY; PO FLUIDS AND SNACKS BROUGHT TO PT PRN; NO DISTRESS NOTED T/O SHIFT; PT CURRENTLY RESTING QUIETLY; CALL LIGHT IN REACH; BED IN LOWEST POSITION; WILL CONTINUE TO MONITOR CLOSELY UNTIL HAND OFF TO DAY SHIFT RN.
--- NOTE | 2020-03-28 08:00 | NUR ---
pt laying in bed with eyes closed, wakes easily, takes po without diff, a/ox3, cooperative with care, follows commands well, states she is doing ok, lungs are course, dim t/o, on home vent with trach, sats in the high 90's, hrr, tele in place running sr to st per monitor, see strip, iv x2, sites are clear and patent, btx4, abd flat soft nontender, taylor cath draining clear yellow urine, skin frail, c/w/d, kamala baker, call light in reach.
[2020-03-28 08:22] LABS: BASOPHILS ABSOLUTE AUTO 0.07 K/mm3 (0.00-0.23); BASOPHILS PERCENT AUTO 1 % (0-2); EOSINOPHILS ABSOLUTE AUTO 0.38 K/mm3 (0.00-0.68); EOSINOPHILS PERCENT AUTO 6 % (0-6); Hematocrit 32.1 % (33.0-51.0); IMMATURE GRAN ABSOLUTE AUTO 0.01 K/mm3 (0.00-0.10); IMMATURE GRAN PERCENT AUTO 0 % (0-1); LYMPHOCYTES ABSOLUTE AUTO 0.97 K/mm3 (0.84-5.20); LYMPHOCYTES PERCENT AUTO 14 % (21-46); MONOCYTES ABSOLUTE AUTO 0.39 K/mm3 (0.16-1.47); MONOCYTES PERCENT AUTO 6 % (4-13); Mean Corpuscular HGB 26.2 pg (26.0-34.0); Mean Corpuscular Volume 94 fL (80-100); Mean Platelet Volume 11.1 fL (9.1-12.4); NEUTROPHILS ABSOLUTE AUTO 5.15 K/mm3 (1.96-9.15); NEUTROPHILS PERCENT AUTO 74 % (41-73); Platelet Count 236 K/mm3 (150-400); RDW Coefficient Variation 18.3 % (11.7-14.2); Red Blood Cell Count 3.43 M/mm3 (3.80-5.20); White Blood Cell Count 6.97 K/mm3 (4.00-11.30)
[2020-03-28 08:37] LABS: Anion Gap 0 mmol/L (6-16); Blood Urea Nitrogen 12 mg/dL (8-24); Bun/Creatinine Ratio 14.6 (12.0-20.0); CO2, Blood 36 mmol/L (21-32); Chloride, Blood 105 mmol/L (98-108); Creatinine, Blood 0.82 mg/dL (0.40-1.00); Glomerular Filtration Rate >60 (60-); Glucose, Blood 82 mg/dL (70-99); Potassium, Blood 4.1 mmol/L (3.5-5.5); Sodium, Blood 141 mmol/L (136-145)
--- NOTE | 2020-03-28 12:21 | NUR ---
Met with Fatuma to review her spymtoms. This write has taken care of her many times. Historically Fatuma has reused palliative help due to anexiety and fear. Review of symptoms, Paulo has a little more difficulty tolerating swallowing. She states she has a headache. She has slightly more airhunger and burning feeling in her lungs. Her main pain in low back and hip pain and tightness with nerve pain radiating from the hip. She is much more anxious and is upset that we can not do much more for her anexiety. She states she is sleeping less due to the pain and gets into a cycle of anexiety and incresed air hunger. We discussed hospice. In the past she would not discuss hospice and her father would get angry if we brought it up. Focused on symtom management and quality of life. She is tired of coming to hospital as she feels it no longer fixes anything or helps her. Stated that on full treatment she is limited in medications for airhunger. Reviewed medications we can give sublingual in low dose and titrate to her comfort. Advised that if improves or does not like hospice she can take herself off hospice. Spoke with doctor Reggie who is her flight attendant inflight services and knows her best she agrees hospice would be good support. Pt has used [facility] in the past and spoke with them regarding maintianing ventilator for comfort on hospice. If that is not possible will ask Dr Glynn and DR. Olmstead if [facility] will mange vent. Information faxed to [employer]. legal support manager Zoie Gomez will see if patient owns her ventilator. [facility] and child care supervisor updated.
[2020-03-28] MEDS ORDERED: Vancomycin1 GM/2501 IV (14:01)
--- NOTE | 2020-03-28 15:39 | NUR ---
PT HAS BEEN DISCHARGED TO HOME, SPOKE WITH HER DAUGHTER, SHE IS AWARE SHE IS COMING HOME, AND ASKED THAT TRANSPORTATION BE ARRANGED, PT INFORMED SHE IS GOING, SHE WANTED HER MEDIPORT ACCESSED PRIOR TO LEAVING FOR HOME HEALTH ANTIBIOTICS, THIS WAS DONE. RIDE WILL BE HERE AT 1600. IV X2 REMOVED INTACT, BEARING PRESS MACHINE OPERATOR GOT HER DRESSED, AND ZENDEJAS CATH REMOVED INTACT. WAITING ON RIDE.
--- NOTE | 2020-03-28 16:19 | NUR ---
PT LEAVING VIA WHEELCHAIR WITH TRANSPORT TO HOME. SHE HAS ALL HER BELONGINGS.
== END 2020-03-28 16:20 | disposition home health service (06) | DRG 871 ==
LOC: ER 01:41 → ICUW 04:11
PROVIDERS: Emergency Medicine; Family Medicine; Internal Medicine Critical Care Medicine; ADMIT Family Medicine
PROC: 5A1945Z Respiratory Ventilation, 24-96 Consecutive Hours (ICD-10-PCS; principal; 2020-03-25)
DX: A41.02 Sepsis due to Methicillin resistant Staphylococcus aureus (principal); J96.21 Acute and chronic respiratory failure with hypoxia; G92 Toxic encephalopathy; J15.1 Pneumonia due to Pseudomonas; J15.29 Pneumonia due to other staphylococcus; J96.22 Acute and chronic respiratory failure with hypercapnia; Z99.11 Dependence on respirator [ventilator] status; E27.3 Drug-induced adrenocortical insufficiency; J98.11 Atelectasis; E87.2 Acidosis; R65.20 Severe sepsis without septic shock; Z93.0 Tracheostomy status; M81.0 Age-related osteoporosis without current pathological fracture; I95.9 Hypotension, unspecified; F32.9 Major depressive disorder, single episode, unspecified; Z20.828 Contact with and (suspected) exposure to other viral communicable diseases; Z87.891 Personal history of nicotine dependence; K21.9 Gastro-esophageal reflux disease without esophagitis; Z90.2 Acquired absence of lung [part of]; T38.0X5A Adverse effect of glucocorticoids and synthetic analogues, initial encounter; Y92.9 Unspecified place or not applicable; F41.8 Other specified anxiety disorders; J44.9 Chronic obstructive pulmonary disease, unspecified; E87.6 Hypokalemia
CPT/HCPCS: 0202U; 31720; 36415; 36600; 51702; 71045; 80048; 80053; 80202; 81001; 82803; 83605; 83880; 84145; 84484; 85025; 87040; 87070; 87077; 87186; 87205; 93005; 93010; 94003; 94640; 94644; 96374; 99285-25; A9270; A9270-GY; J1642; J1650; J2060; J2543; J3370; J7030; J7040; J7050; J7512

== ENCOUNTER 2020-04-01 17:23 | Emergency (ER) | payer OTHER ==
[~2020-04-01] VITALS: Ht 167.6 cm; Wt 56.7 kg
[~2020-04-01 17:23] MED LIST changes: +Vancomycin1 GM/2501 IV
== END 2020-04-01 18:55 | disposition home or self-care (01) ==
LOC: ER 17:23
DX: J95.09 Other tracheostomy complication (principal); J44.9 Chronic obstructive pulmonary disease, unspecified; F41.9 Anxiety disorder, unspecified; I10 Essential (primary) hypertension; F32.9 Major depressive disorder, single episode, unspecified; Z79.52 Long term (current) use of systemic steroids; Z87.891 Personal history of nicotine dependence; Z79.899 Other long term (current) drug therapy
CPT/HCPCS: 31502; 99283-25

== ENCOUNTER 2020-04-15 20:13 | Emergency (ER) | payer OTHER ==
[~2020-04-15] VITALS: Ht 167.6 cm; Wt 49.9 kg
== END 2020-04-16 03:16 | disposition home or self-care (01) ==
LOC: ER 20:13
DX: Z43.0 Encounter for attention to tracheostomy (principal); R06.02 Shortness of breath; I10 Essential (primary) hypertension; J43.9 Emphysema, unspecified; F41.9 Anxiety disorder, unspecified; F32.9 Major depressive disorder, single episode, unspecified; Z79.52 Long term (current) use of systemic steroids; Z87.891 Personal history of nicotine dependence; Z79.899 Other long term (current) drug therapy
CPT/HCPCS: 71045; 94640; 96374; 96376; 99285-25; J3010

== ENCOUNTER 2020-05-31 16:09 | Emergency (ER) | payer OTHER ==
[~2020-05-31] VITALS: Ht 165.1 cm; Wt 61.2 kg
== END 2020-05-31 17:10 | disposition home or self-care (01) ==
LOC: ER 16:09
DX: Z43.0 Encounter for attention to tracheostomy (principal); I10 Essential (primary) hypertension; J43.9 Emphysema, unspecified; Z87.891 Personal history of nicotine dependence; Z79.52 Long term (current) use of systemic steroids; Z79.899 Other long term (current) drug therapy
CPT/HCPCS: 31502; 99282-25

== ENCOUNTER 2020-06-26 00:17 | Day surgery (SDC) | payer OTHER | END 2020-06-26 23:51 | disposition home or self-care (01) | LOC: ATC 00:17 | DX: J44.9 Chronic obstructive pulmonary disease, unspecified (principal); Z99.11 Dependence on respirator [ventilator] status; J96.11 Chronic respiratory failure with hypoxia; N18.9 Chronic kidney disease, unspecified; Z87.891 Personal history of nicotine dependence | CPT/HCPCS: J1642 ==

== ENCOUNTER 2020-07-02 00:17 | Day surgery (SDC) | payer OTHER | END 2020-07-02 15:52 | disposition home or self-care (01) | LOC: ATC 00:17 | DX: J44.9 Chronic obstructive pulmonary disease, unspecified (principal); G47.01 Insomnia due to medical condition; N18.9 Chronic kidney disease, unspecified; Z99.11 Dependence on respirator [ventilator] status; Z87.891 Personal history of nicotine dependence | CPT/HCPCS: 96523; J1642 ==

== ENCOUNTER 2020-07-26 21:44 | Emergency (ER) | payer OTHER ==
[~2020-07-26] VITALS: Ht 165.1 cm; Wt 81.7 kg
== END 2020-07-26 23:27 | disposition home or self-care (01) ==
LOC: ER 21:44
DX: J95.03 Malfunction of tracheostomy stoma (principal); I10 Essential (primary) hypertension; J43.9 Emphysema, unspecified; Z87.891 Personal history of nicotine dependence
CPT/HCPCS: 31502; 31720; 99283-25

== ENCOUNTER 2020-09-28 04:29 | Inpatient (IN) | payer OTHER, MEDICARE ==
[~2020-09-28] VITALS: Ht 165.1 cm; Wt 63.5 kg
[2020-09-28 04:56] LABS: BASOPHILS ABSOLUTE AUTO 0.06 K/mm3 (0.00-0.23); BASOPHILS PERCENT AUTO 1 % (0-2); EOSINOPHILS ABSOLUTE AUTO 0.25 K/mm3 (0.00-0.68); EOSINOPHILS PERCENT AUTO 3 % (0-6); Hematocrit 33.8 % (33.0-51.0); IMMATURE GRAN ABSOLUTE AUTO 0.03 K/mm3 (0.00-0.10); IMMATURE GRAN PERCENT AUTO 0 % (0-1); LYMPHOCYTES ABSOLUTE AUTO 1.24 K/mm3 (0.84-5.20); LYMPHOCYTES PERCENT AUTO 16 % (21-46); MONOCYTES ABSOLUTE AUTO 0.49 K/mm3 (0.16-1.47); MONOCYTES PERCENT AUTO 6 % (4-13); Mean Corpuscular HGB 27.9 pg (26.0-34.0); Mean Corpuscular HGB Conc 29.6 g/dL (31.5-36.5); Mean Corpuscular Volume 94 fL (80-100); Mean Platelet Volume 10.9 fL (9.1-12.4); NEUTROPHILS ABSOLUTE AUTO 5.81 K/mm3 (1.96-9.15); NEUTROPHILS PERCENT AUTO 74 % (41-73); Platelet Count 224 K/mm3 (150-400); RDW Coefficient Variation 14.4 % (11.7-14.2); RDW Standard Deviation 49.7 fL (35.1-46.3); Red Blood Cell Count 3.59 M/mm3 (3.80-5.20); White Blood Cell Count 7.88 K/mm3 (4.00-11.30)
[2020-09-28 05:08] LABS: Alanine Aminotransfer (ALT/SGP 18 U/L (12-78); Albumin, Blood 3.2 g/dL (3.4-5.0); Albumin/Globulin Ratio 0.8 (0.8-1.8); Alk Phos 113 U/L (50-136); Anion Gap 1 mmol/L (6-16); Aspartate Aminotrans (AST/SGOT 15 U/L (12-37); Bilirubin, Total 0.2 mg/dL (0.1-1.0); Blood Urea Nitrogen 18 mg/dL (8-24); Bun/Creatinine Ratio 21.7 (12.0-20.0); CO2, Blood 37 mmol/L (21-32); Calcium, Blood 9.1 mg/dL (8.5-10.1); Chloride, Blood 101 mmol/L (98-108); Creatinine, Blood 0.83 mg/dL (0.40-1.00); Globulin, Blood 4.1 g/dL (2.2-4.0); Glomerular Filtration Rate >60 (60-); Glucose, Blood 106 mg/dL (70-99); Sodium, Blood 139 mmol/L (136-145); Total Protein, Blood 7.3 g/dL (6.4-8.2)
[2020-09-28 06:05] LABS: Troponin I <0.015 ng/mL (0.000-0.040)
[2020-09-28 07:34] LABS: Source, Urine Clean Catch
[2020-09-28 07:40] LABS: Appearance, Urine Clear (Clear); Bilirubin, Urine Neg (Neg); Blood, Urine 1+ (Neg); Color, Urine Yellow (P-Yellow); Glucose Qualitative, Urine Neg (Neg); Ketones, Urine Neg (Neg); Leukocyte Esterase, Urine 1+ (Neg); Nitrite, Urine Neg (Neg); Protein, Urine 1+ (Neg); Urobilinogen, Urine NORM (Normal)
[2020-09-28 07:59] LABS: Bacteria Mod /hpf; Mucus Light (0-Heavy); Renal Epithelial Few /hpf (0-Rare); Squamous Epithelial Cells Rare /hpf (Few)
[2020-09-28 12:45] LABS: SARS-Cov-2 (COVID-19) PCR, MMC NEGATIVE (NEGATIVE)
--- NOTE | 2020-09-28 18:33 | NUR ---
ADMIT PT ARRIVED VIA ER BED TO ICU 8 AT 1745. PT ON HOME VENT SIMV, TV 500, PEEP 5 WITH 8L BLEED IN. PT AWAKE, ALERT, ORIENTED. PT C/O FLANK PAIN, MEDICATED PER EMAR WITH DILAUDID. MEDIPORT TO R UPPER CHEST ACCESSED WITH NS INFUSING AT 50ML/HR. LEVOPHED ON STANDBY AT THIS TIME, VS STABLE. PT AWARE OF PENDING TRANSPORT TO [facility]. WILL CONTINUE TO MONITOR AND WILL REPORT OFF TO ONCOMING RN.
--- NOTE | 2020-09-28 19:55 | NUR ---
Shelby of care Pt resting in bed, complaining of 8/10 flank pain requesting pain medications. On home vent SIMV, TV 500, peep 5 with 8L bleed in, SPO2 100%. VSS, HR SR 70's, SBP 130's. Pt currently receiving NS @ 100 ML/HR to R chest mediport. LAC saline locked. Levophed on standby. Alert & oriented, suctions self as needed, repositions trach as needed for comfort. Call light within reach and uses appropriately.
--- NOTE | 2020-09-28 20:43 | NUR ---
REPORT CALLED AND GIVEN TO SALVATORE PELAYO AT [facility]. ALL QUESTIONS ANSWERED AT THAT TIME, PT TO BE TRANSPORTED VIA GROUND.
--- NOTE | 2020-09-28 21:15 | NUR ---
TRANSPORT ARRIVED TO TAKE PT TO [facility]. PT PLACED ON THEIR MONITOR, HOME VENT HOOKED TO 10L O2 (ACCORDING TO PT SHE IS ON 10L AT HOME). ALL BELONGINGS GATHERED AND TRANSPORTED WITH PATIENT.
== END 2020-09-28 21:15 | disposition short-term general hospital (02) | DRG 871 ==
LOC: ER 04:29 → ICUW 16:08 → ICUE 17:34
PROVIDERS: Emergency Medicine; ADMIT Internal Medicine
PROC: 3E033XZ Introduction of Vasopressor into Peripheral Vein, Percutaneous Approach (ICD-10-PCS; principal; 2020-09-28)
PROC: 5A1935Z Respiratory Ventilation, Less than 24 Consecutive Hours (ICD-10-PCS; 2020-09-28)
DX: A41.9 Sepsis, unspecified organism (principal); R65.21 Severe sepsis with septic shock; N13.2 Hydronephrosis with renal and ureteral calculous obstruction; E27.3 Drug-induced adrenocortical insufficiency; J96.10 Chronic respiratory failure, unspecified whether with hypoxia or hypercapnia; G89.29 Other chronic pain; J44.9 Chronic obstructive pulmonary disease, unspecified; Z20.822 Contact with and (suspected) exposure to COVID-19; M81.0 Age-related osteoporosis without current pathological fracture; T38.0X5A Adverse effect of glucocorticoids and synthetic analogues, initial encounter; I95.9 Hypotension, unspecified; Z86.711 Personal history of pulmonary embolism; Z96.649 Presence of unspecified artificial hip joint; Z98.890 Other specified postprocedural states; Z79.899 Other long term (current) drug therapy; Z87.891 Personal history of nicotine dependence; F41.9 Anxiety disorder, unspecified; F32.9 Major depressive disorder, single episode, unspecified; I10 Essential (primary) hypertension; Z93.0 Tracheostomy status
CPT/HCPCS: 36415; 71045; 74176; 80053; 81001; 83605; 84484; 85025; 87040; 87086; 94640; 96361-59; 96365-59; 96366-59; 96367-59; 96375-59; 96376-59; 99285-25; A9270; J0696; J1170; J1644; J1720; J2270; J3010; J7030; J7060; P9612; U0004

== ENCOUNTER 2020-10-03 18:15 | Emergency (ER) | payer OTHER ==
[~2020-10-03] VITALS: Ht 165.1 cm; Wt 65.8 kg
[2020-10-03 19:50] LABS: Source, Urine Catheter
[2020-10-03 19:53] LABS: Appearance, Urine Cloudy (Clear); Bilirubin, Urine Neg (Neg); Blood, Urine 5+ (Neg); Color, Urine Brown (P-Yellow); Glucose Qualitative, Urine Neg (Neg); Ketones, Urine Neg (Neg); Leukocyte Esterase, Urine 2+ (Neg); Nitrite, Urine Neg (Neg); Protein, Urine 3+ (Neg); Specific Gravity, Urine 1.015 (1.003-1.022); Urobilinogen, Urine NORM (Normal)
[2020-10-03 20:02] LABS: Bacteria Mod /hpf; Red Blood Cells, Urine TNTC /hpf (0-2); Squamous Epithelial Cells Few /hpf (Few)
[2020-10-03 20:35] LABS: BASOPHILS ABSOLUTE AUTO 0.06 K/mm3 (0.00-0.23); BASOPHILS PERCENT AUTO 1 % (0-2); EOSINOPHILS ABSOLUTE AUTO 0.36 K/mm3 (0.00-0.68); EOSINOPHILS PERCENT AUTO 5 % (0-6); Hematocrit 32.4 % (33.0-51.0); Hemoglobin 9.7 g/dL (11.5-16.0); IMMATURE GRAN ABSOLUTE AUTO 0.01 K/mm3 (0.00-0.10); IMMATURE GRAN PERCENT AUTO 0 % (0-1); LYMPHOCYTES ABSOLUTE AUTO 1.15 K/mm3 (0.84-5.20); LYMPHOCYTES PERCENT AUTO 16 % (21-46); MONOCYTES ABSOLUTE AUTO 0.67 K/mm3 (0.16-1.47); MONOCYTES PERCENT AUTO 9 % (4-13); Mean Corpuscular HGB 28.2 pg (26.0-34.0); Mean Corpuscular HGB Conc 29.9 g/dL (31.5-36.5); Mean Corpuscular Volume 94 fL (80-100); Mean Platelet Volume 11.1 fL (9.1-12.4); NEUTROPHILS ABSOLUTE AUTO 4.95 K/mm3 (1.96-9.15); NEUTROPHILS PERCENT AUTO 69 % (41-73); Platelet Count 238 K/mm3 (150-400); RDW Standard Deviation 51.5 fL (35.1-46.3); Red Blood Cell Count 3.44 M/mm3 (3.80-5.20)
[2020-10-03 20:46] LABS: Alanine Aminotransfer (ALT/SGP 26 U/L (12-78); Albumin/Globulin Ratio 0.8 (0.8-1.8); Alk Phos 111 U/L (50-136); Anion Gap 2 mmol/L (6-16); Aspartate Aminotrans (AST/SGOT 13 U/L (12-37); Bilirubin, Total 0.1 mg/dL (0.1-1.0); Blood Urea Nitrogen 20 mg/dL (8-24); Bun/Creatinine Ratio 20.5 (12.0-20.0); CO2, Blood 36 mmol/L (21-32); Calcium, Blood 8.7 mg/dL (8.5-10.1); Chloride, Blood 102 mmol/L (98-108); Creatinine, Blood 0.98 mg/dL (0.40-1.00); Globulin, Blood 3.9 g/dL (2.2-4.0); Glomerular Filtration Rate >60 (60-); Glucose, Blood 122 mg/dL (70-99); Sodium, Blood 140 mmol/L (136-145); Total Protein, Blood 6.9 g/dL (6.4-8.2)
[2020-10-03] MEDS ORDERED: CEFP200 PO (22:08)
== END 2020-10-03 22:45 | disposition home or self-care (01) ==
LOC: ER 18:15
PROVIDERS: Emergency Medicine
DX: N39.0 Urinary tract infection, site not specified (principal); J44.9 Chronic obstructive pulmonary disease, unspecified; I10 Essential (primary) hypertension; Z79.899 Other long term (current) drug therapy
CPT/HCPCS: 31502; 36415; 74176; 80053; 81001; 83690; 85025; 87086; 96374; 96375; 96376; 99284-25; J1170; J2405

== ENCOUNTER 2020-11-18 16:34 | Emergency (ER) | payer OTHER ==
[~2020-11-18] VITALS: Ht 165.1 cm; Wt 63.5 kg
[~2020-11-18 16:34] MED LIST changes: +CEFP200 PO
== END 2020-11-18 17:50 | disposition home or self-care (01) ==
LOC: ER 16:34
DX: J95.00 Unspecified tracheostomy complication (principal); T83.122A Displacement of indwelling ureteral stent, initial encounter; I10 Essential (primary) hypertension; Z79.899 Other long term (current) drug therapy
CPT/HCPCS: 31502; 96372; 99283-25; J1170

== ENCOUNTER 2020-12-03 11:47 | Inpatient (IN) | payer OTHER, MEDICARE ==
[~2020-12-03] VITALS: Ht 162.6 cm; Wt 70.2 kg
[2020-12-03 13:36] LABS: BASOPHILS ABSOLUTE AUTO 0.08 K/mm3 (0.00-0.23); BASOPHILS PERCENT AUTO 1 % (0-2); EOSINOPHILS ABSOLUTE AUTO 0.13 K/mm3 (0.00-0.68); EOSINOPHILS PERCENT AUTO 1 % (0-6); Hematocrit 30.8 % (33.0-51.0); Hemoglobin 8.8 g/dL (11.5-16.0); IMMATURE GRAN ABSOLUTE AUTO 0.07 K/mm3 (0.00-0.10); IMMATURE GRAN PERCENT AUTO 0 % (0-1); LYMPHOCYTES ABSOLUTE AUTO 0.47 K/mm3 (0.84-5.20); LYMPHOCYTES PERCENT AUTO 3 % (21-46); MONOCYTES ABSOLUTE AUTO 0.79 K/mm3 (0.16-1.47); MONOCYTES PERCENT AUTO 5 % (4-13); Mean Corpuscular HGB 27.2 pg (26.0-34.0); Mean Corpuscular HGB Conc 28.6 g/dL (31.5-36.5); Mean Corpuscular Volume 95 fL (80-100); Mean Platelet Volume 12.1 fL (9.1-12.4); NEUTROPHILS ABSOLUTE AUTO 14.29 K/mm3 (1.96-9.15); NEUTROPHILS PERCENT AUTO 90 % (41-73); Platelet Count 248 K/mm3 (150-400); RDW Coefficient Variation 14.3 % (11.7-14.2); RDW Standard Deviation 49.8 fL (35.1-46.3); Red Blood Cell Count 3.24 M/mm3 (3.80-5.20); White Blood Cell Count 15.83 K/mm3 (4.00-11.30)
[2020-12-03 13:40] LABS: SARS-Cov-2 (COVID-19) PCR, MMC NEGATIVE (NEGATIVE)
[2020-12-03 13:40] LABS: Alanine Aminotransfer (ALT/SGP 13 U/L (12-78); Albumin, Blood 2.3 g/dL (3.4-5.0); Albumin/Globulin Ratio 0.5 (0.8-1.8); Alk Phos 127 U/L (50-136); Anion Gap 2 mmol/L (6-16); Aspartate Aminotrans (AST/SGOT 8 U/L (12-37); Bilirubin, Total 0.2 mg/dL (0.1-1.0); Blood Urea Nitrogen 18 mg/dL (8-24); Bun/Creatinine Ratio 19.8 (12.0-20.0); CO2, Blood 38 mmol/L (21-32); Calcium, Blood 8.6 mg/dL (8.5-10.1); Chloride, Blood 103 mmol/L (98-108); Creatinine, Blood 0.91 mg/dL (0.40-1.00); Globulin, Blood 4.4 g/dL (2.2-4.0); Glomerular Filtration Rate >60 (60-); Glucose, Blood 127 mg/dL (70-99); Potassium, Blood 3.3 mmol/L (3.5-5.5); Sodium, Blood 143 mmol/L (136-145); Total Protein, Blood 6.7 g/dL (6.4-8.2); Troponin I <0.015 ng/mL (0.000-0.040)
[2020-12-03 14:02] LABS: PCO2 Arterial 61.1 mmHg (35-45); PO2 Arterial 50.2 mmHg (80-100); pH Blood Arterial 7.43 (7.35-7.45)
[2020-12-03] MEDS ORDERED: BROVANA15 MCG/21 NEB (14:26)
[2020-12-03] MEDS ORDERED: ATROVENT HFA12.9 GM NEB (14:27)
[2020-12-03] MEDS ORDERED: QUETIAPINE FUM200 M6 PO (14:27)
[2020-12-03] MEDS ORDERED: PREGABALIN100 MG PO (14:27)
[2020-12-03] MEDS ORDERED: AZIT250 PO (14:27)
[2020-12-03] MEDS ORDERED: DORN1IH INH (14:28)
[2020-12-03] MEDS ORDERED: HYDROCODONE-AC1 EAC7 PO (14:28)
[2020-12-03] MEDS ORDERED: FOLI1 PO (14:28)
[2020-12-03] MEDS ORDERED: BUSP5 PO (14:28)
[2020-12-03] MEDS ORDERED: REMERON15 M4 PO (14:29)
[2020-12-03] MEDS ORDERED: OXYB5 PO (14:29)
[2020-12-03] MEDS ORDERED: Prednisone10 MG PO (14:29)
[2020-12-03] MEDS ORDERED: PANTOPRAZOLE SO40 M2 PO (14:30)
[2020-12-03] MEDS ORDERED: Hair, Skin & N1 EACH PO (14:30)
[2020-12-03] MEDS ORDERED: TAMSULOSIN HCL0.4 M1 PO (14:30)
[2020-12-03 14:33] LABS: Source, Urine Clean Catch
[2020-12-03 14:47] LABS: Appearance, Urine Clear (Clear); Bilirubin, Urine Neg (Neg); Blood, Urine 2+ (Neg); Color, Urine Yellow (P-Yellow); Glucose Qualitative, Urine Neg (Neg); Ketones, Urine 1+ (Neg); Leukocyte Esterase, Urine 1+ (Neg); Nitrite, Urine Neg (Neg); Protein, Urine 2+ (Neg); Specific Gravity, Urine 1.025 (1.003-1.022); Urobilinogen, Urine NORM (Normal)
[2020-12-03 14:48] LABS: Granular Casts Rare /lpf (0)
[2020-12-03 14:49] LABS: Bacteria Mod /hpf; Mucus Light (0-Heavy); Squamous Epithelial Cells Few /hpf (Few); White Blood Cells, Urine 0-2 /hpf (0-5)
--- NOTE | 2020-12-03 18:22 | NUR ---
ARRIVED TO UNIT FROM ED VIA GURNEY, TRANSFERED BY NURSING STAFF TO BED. PT IS LETHARGIC, BUT ABLE TO ANSWER YES OR NO QUESTIONS AT TIMES BY SHAKING/NODDING HEAD. PT REMAINS ON HOME VENT. ON HOME SETTINGS PER MARIO ALBERTO RT AND MAINTAINING O2 SATURATION >90% . PT HAS BEEN RUNNING HYPOTENSIVE, DR. CHANEL NOTIFIED AND ORDERS FOR 1 L NS BOLUS GIVEN. PT HAS SCABS AND SCRATCHES NOTED ALL OVER BODY, NO CURRENT BLEEDING. SCRATCHES APPEAR AT DIFFERENT STAGES OF HEALING.
[2020-12-04 04:41] LABS: BASOPHILS ABSOLUTE AUTO 0.03 K/mm3 (0.00-0.23); BASOPHILS PERCENT AUTO 0 % (0-2); EOSINOPHILS PERCENT AUTO 0 % (0-6); Hematocrit 27.4 % (33.0-51.0); Hemoglobin 7.8 g/dL (11.5-16.0); IMMATURE GRAN ABSOLUTE AUTO 0.06 K/mm3 (0.00-0.10); IMMATURE GRAN PERCENT AUTO 1 % (0-1); LYMPHOCYTES ABSOLUTE AUTO 0.23 K/mm3 (0.84-5.20); LYMPHOCYTES PERCENT AUTO 2 % (21-46); MONOCYTES ABSOLUTE AUTO 0.05 K/mm3 (0.16-1.47); MONOCYTES PERCENT AUTO 1 % (4-13); Mean Corpuscular HGB 26.4 pg (26.0-34.0); Mean Corpuscular HGB Conc 28.5 g/dL (31.5-36.5); Mean Corpuscular Volume 93 fL (80-100); Mean Platelet Volume 12.2 fL (9.1-12.4); NEUTROPHILS ABSOLUTE AUTO 10.22 K/mm3 (1.96-9.15); NEUTROPHILS PERCENT AUTO 96 % (41-73); Platelet Count 194 K/mm3 (150-400); RDW Coefficient Variation 14.6 % (11.7-14.2); RDW Standard Deviation 49.6 fL (35.1-46.3); Red Blood Cell Count 2.95 M/mm3 (3.80-5.20); White Blood Cell Count 10.59 K/mm3 (4.00-11.30)
[2020-12-04 04:59] LABS: Alanine Aminotransfer (ALT/SGP 9 U/L (12-78); Albumin/Globulin Ratio 0.5 (0.8-1.8); Alk Phos 112 U/L (50-136); Anion Gap 5 mmol/L (6-16); Aspartate Aminotrans (AST/SGOT 5 U/L (12-37); Bilirubin, Total 0.2 mg/dL (0.1-1.0); Blood Urea Nitrogen 21 mg/dL (8-24); Bun/Creatinine Ratio 29.6 (12.0-20.0); CO2, Blood 31 mmol/L (21-32); Calcium, Blood 8.3 mg/dL (8.5-10.1); Chloride, Blood 110 mmol/L (98-108); Creatinine, Blood 0.71 mg/dL (0.40-1.00); Glomerular Filtration Rate >60 (60-); Glucose, Blood 155 mg/dL (70-99); Potassium, Blood 3.4 mmol/L (3.5-5.5); Sodium, Blood 146 mmol/L (136-145)
--- NOTE | 2020-12-04 05:45 | NUR ---
SHIFT SUMMARY PATIENT FOUND TO BE LETHARGIC, FOLLOWING SOME COMMANDS, LINTON, WITH GEN. WEAKNESS. WITH TRACH CAN BE HARD TO TELL HOW ORIENTED PATIENT IS BUT MOUTHS APPROPRIATLY AND SEEMS ORIENTEDX3. COMPLAINTS OF SEVERE PAIN TO BACK/BUTT IN WHICH IV FENT IS HELPING KEEP AT TOLERABLE LEVEL. VENT ON HOME SETTINGS WITH 8L O2 BLEED IN TO TRACH. NO DISTRESS NOTED. TACHYPENIC AT TIMES WITH COARSE BREATH SOUNDS. SR/ST ON THE MONITOR. WITH SOME SOFT BP'S BUT STABLE. PATIENT PASSED BEDSIDE SWALLOW SHE WAS ALERT AT THAT TIME AND ORAL MEDS GIVEN WITHOUT ISSUE. NPO OTHERWISE. ZENDEJAS DRAINING TO GRAVITY WITH DECENT OUPUT. Q2H TURNS IN PLACE. NO ACUTE CONCERNS AT THIS. WILL CONTINUE TO MONITOR UNTIL REPORT GIVEN TO SAGE RN.
[2020-12-04 15:49] LABS: Percent Saturation 8.4 % (15.0-50.0)
--- NOTE | 2020-12-04 18:21 | NUR ---
PT REPORTED PAIN AND RECEIVED ANALGESIA 1X, VSS, PT CAN MOUTHE WORDS, PT ADVANCED TO PUREED DIET WITH THIN LIQUIDS, NO STRAWS, AND WHOLE PILLS, PT REPOSITIONED Q2H, TOLERATED ZENDEJAS CARE WELL, AND RECEIVED ORAL CARE Q4H, PT REPORTED THAT HER DAUGHTER TAKES CARE OF HER TRACH AT HOME, PT REFUSED SUCTIONING TO OBTAIN SPUTUM SPECIMEN, TRACH TIES ADJUSTED AND EXTERIOR OF TRACHEOSTOMY SITE CLEANSED WITH SOAP AND WARM WATER, PT REPORTED NO NAUSEA AND NO APPETITE AND DID NOT WANT ANY LUNCH OR DINNER, ABLE TO TOLERATE SMALL SIPS OF WATER WHEN PROMPTED THROUGHOUT DAY, PT REPORTS THAT NONE OF THE ANALGESICS SHE HAS RECEIVED DURING THIS ADMISSION HAVE HAD ANY EFFECT, PT UNABLE TO REMAIN AWAKE IF NOT STIMULATED CONTINUOUSLY AND FALLS BACK ASLEEP WITHIN 15 SEC OF STIMULATION
--- NOTE | 2020-12-05 05:23 | NUR ---
SHIFT SUMMARY PATIENT IS ALERT AND ORIENTED X4. Q2 HOUR REPOSITIONING. MEPALEX CHANGED ON COCCYX. 02 SATS >95% ON HOME VENT, WHEN I ATTMEPTED TO TITRATE 02 DOWN PT BECOMES VERY AGITATED AND ASKS FOR IT TO BE SET AT 10L EVEN WHEN SATS ARE 100%. SUCTION PROVIDED AND PT SELF SUCTIONS. PAIN MEDICATION PROVIDED, SEE EMAR, FOR BACK PAIN AND LEG PAIN. VSS, NO ACUTE CHANGES. CALL LIGHT IN REACH.
[2020-12-05 05:24] LABS: BASOPHILS ABSOLUTE AUTO 0.03 K/mm3 (0.00-0.23); BASOPHILS PERCENT AUTO 0 % (0-2); EOSINOPHILS PERCENT AUTO 0 % (0-6); Hematocrit 28.2 % (33.0-51.0); Hemoglobin 8.2 g/dL (11.5-16.0); IMMATURE GRAN ABSOLUTE AUTO 0.14 K/mm3 (0.00-0.10); IMMATURE GRAN PERCENT AUTO 1 % (0-1); LYMPHOCYTES ABSOLUTE AUTO 0.38 K/mm3 (0.84-5.20); LYMPHOCYTES PERCENT AUTO 1 % (21-46); MONOCYTES ABSOLUTE AUTO 0.22 K/mm3 (0.16-1.47); MONOCYTES PERCENT AUTO 1 % (4-13); Mean Corpuscular HGB 26.1 pg (26.0-34.0); Mean Corpuscular HGB Conc 29.1 g/dL (31.5-36.5); Mean Corpuscular Volume 90 fL (80-100); NEUTROPHILS ABSOLUTE AUTO 27.29 K/mm3 (1.96-9.15); NEUTROPHILS PERCENT AUTO 97 % (41-73); Platelet Count 233 K/mm3 (150-400); RDW Standard Deviation 49.7 fL (35.1-46.3); Red Blood Cell Count 3.14 M/mm3 (3.80-5.20); White Blood Cell Count 28.06 K/mm3 (4.00-11.30)
[2020-12-05 05:56] LABS: Alanine Aminotransfer (ALT/SGP 10 U/L (12-78); Albumin/Globulin Ratio 0.5 (0.8-1.8); Alk Phos 106 U/L (50-136); Anion Gap 4 mmol/L (6-16); Aspartate Aminotrans (AST/SGOT 8 U/L (12-37); Bilirubin, Total 0.2 mg/dL (0.1-1.0); Blood Urea Nitrogen 21 mg/dL (8-24); Bun/Creatinine Ratio 26.3 (12.0-20.0); CO2, Blood 29 mmol/L (21-32); Calcium, Blood 8.5 mg/dL (8.5-10.1); Chloride, Blood 114 mmol/L (98-108); Globulin, Blood 4.1 g/dL (2.2-4.0); Glomerular Filtration Rate >60 (60-); Glucose, Blood 108 mg/dL (70-99); Potassium, Blood 3.9 mmol/L (3.5-5.5); Sodium, Blood 147 mmol/L (136-145); Total Protein, Blood 6.1 g/dL (6.4-8.2); Vancomycin, Trough 14.5 ug/mL (5.0-10.0)
[2020-12-05 11:35] LABS: U Amphetamine Screen Not Detected; U Barbituate Screen Not Detected; U Buprenorphine Screen Not Detected; U Cannabinoids Screen Not Detected; U Cocaine Screen Not Detected; U Methadone Screen Not Detected; U Methamphetamine Screen Not Detected; U Opiates Screen DETECTED; U Oxycodone Screen Not Detected; U Phencyclidine Screen Not Detected; U Propoxyphene Screen Not Detected
[2020-12-05 11:36] LABS: U Benzodiazapine Screen DETECTED
--- NOTE | 2020-12-05 18:33 | NUR ---
PT HAD A DIFFICULT MORNING WITH SEVERE ANXIETY AND DIFFICULTY BREATHING. RT TO BEDSIDE, ABLE TO REMOVE A LARGE MUCUS PLUG. DR Ashley MCKNIGHT AT BEDSIDE. ORDERS FOR ATIVAN OBTAINED, DR PIERSON LATER AT BEDSIDE FOR FURTHER ORDERS. PT RESTED FOR MOST OF THE AFTERNOON. PT SITTING UP IN BED TO EAT DINNER AT THIS TIME. AWAKE AND ALERT, SWALLOWING WELL. WILL CONTINUE TO MONITOR AND REPORT OFF TO NOC RN.
--- NOTE | 2020-12-05 19:45 | NUR ---
ASSUMED CARE REPORT RECEIVED FROM SCOOTER PELAYO. PT AWAKE IN BED REQUESTING PAIN MEDICATION FOR 8/10 BACK PAIN. PT VENTED VIA TRACH, PER RT PT TO BE PLACED BACK ON HOME VENT. PT ABLE TO SUCTION SELF AND MAKES NEEDS KNOW. VSS, HR 90-100'S ST ON MONITOR, SBP 115'S, SPO2 97%. PT DECLINING TURNS/REPOSITIONING AT THIS TIME. DENIES NEEDS OTHER THAN SOMETHING FOR PAIN.
--- NOTE | 2020-12-06 06:23 | NUR ---
SHIFT SUMMARY PT RESTING IN BED. COMPLAINED OF BACK AND R LEG PAIN T/O SHIFT, MEDICATED WITH PRN NORCO AND FENTANYL PER EMAR. REMAINS ALERT AND ORIENTED. ON HOME VENT VIA TRACH, SUCTIONS SELF NEEDED. ABLE TO MAKE NEEDS KNOWN, CALL LIGHT WITHIN REACH. VITALS REMAINED STABLE T/O SHIFT. PRESSURE ULCER TO COCCYX COVERED WITH FOAM DRESSING, SCRATCHES/SCABS TO BUE AND BLE. ZENDEJAS DRAINING YELLOW URINE TO GRAVITY.
[2020-12-06 08:16] LABS: Hematocrit 28.7 % (33.0-51.0); Hemoglobin 8.6 g/dL (11.5-16.0); Mean Corpuscular HGB 26.3 pg (26.0-34.0); Mean Corpuscular Volume 88 fL (80-100); Platelet Count 201 K/mm3 (150-400); RDW Coefficient Variation 15.3 % (11.7-14.2); RDW Standard Deviation 49.1 fL (35.1-46.3); Red Blood Cell Count 3.27 M/mm3 (3.80-5.20)
[2020-12-06 08:22] LABS: Magnesium, Blood 2.1 mg/dL (1.6-2.4)
[2020-12-06 08:23] LABS: Alanine Aminotransfer (ALT/SGP 12 U/L (12-78); Albumin/Globulin Ratio 0.5 (0.8-1.8); Alk Phos 95 U/L (50-136); Anion Gap 3 mmol/L (6-16); Aspartate Aminotrans (AST/SGOT 10 U/L (12-37); Bilirubin, Total 0.1 mg/dL (0.1-1.0); Blood Urea Nitrogen 21 mg/dL (8-24); Bun/Creatinine Ratio 23.6 (12.0-20.0); CO2, Blood 28 mmol/L (21-32); Calcium, Blood 8.4 mg/dL (8.5-10.1); Chloride, Blood 114 mmol/L (98-108); Creatinine, Blood 0.89 mg/dL (0.40-1.00); Globulin, Blood 3.7 g/dL (2.2-4.0); Glomerular Filtration Rate >60 (60-); Glucose, Blood 141 mg/dL (70-99); Potassium, Blood 4.2 mmol/L (3.5-5.5); Sodium, Blood 145 mmol/L (136-145); Total Protein, Blood 5.7 g/dL (6.4-8.2)
--- NOTE | 2020-12-06 12:53 | NUR ---
REASSESSMENT PT HAS BEEN RESTING IN BED THROUGHOUT THE MORNING. SHE IS ON HER HOME VENT. THIS MORNING SHE REQUESTED HER INNER CANNULA BE CHANGED. OFFERED TO SUCTION PT, BUT SHE REFUSED AND SAID SHE JUST WANTED IT CHANGED SO INNER CANNULA WAS CHANGED. LUNGS ARE CLEAR, DIM IN THE BASES. SR WITH PAC. BP STABLE. PT IS EATING PUREE DIET, BUT DOESN'T LIKE IT. SPOKE WITH SPEECH THERAPY AND THEY SAID THEY PROBABLY WON'T HAVE TIME TO REEVALUATE PT TODAY, BUT WILL TRY. PT INFORMED OF THIS AND UNHAPPY WITH IT, BUT COOPERATIVE. PT IS REFUSING TURNS. SHE SAYS THAT SHE IS ADJUSTING HERSELF. EDUCATED PT ON THE WOUNDS ON HER BOTTOM THAT ARE CAUSED BY NOT MOVING AND THAT THEY WON'T HEAL UNLESS SHE TURNS OFF OF THEM. PT STILL REFUSES ASSISTANCE TURNING, BUT WILL MOVE HIPS AROUND IN THE BED SO STAFF CAN SEE HER MOVING.
--- NOTE | 2020-12-06 17:35 | NUR ---
SHIFT SUMMARY PT TOLERATED BEING ON HER HOME VENT ALL SHIFT. THIS AFTERNOON SHE STARTED TO GET ANXIOUS SAYING SHE COULDN'T BREATHE EVEN THOUGH HER SATS REMAINED ABOVE 98%, BUT HER ANXIETY WAS ABLE TO BE MANAGED WITH A DOSE OF ATIVAN. HER LUNGS ARE CLEAR, DIM IN THE BASES. ST THIS EVENING IN THE LOW 100S. BP STABLE. PT ALLOWED THE PCT TO WASH AND BRUSH HER HAIR, BUT THEN GOT TIRED AND REFUSED THE REST OF HER BATH. PT DOESN'T LIKE THE PUREE DIET BUT IS EATING SOME OF IT. CONTINUING TO MONITOR.
[2020-12-06 17:59] LABS: Vancomycin, Trough 21.4 ug/mL (5.0-10.0)
--- NOTE | 2020-12-06 20:13 | NUR ---
ASSUMED CARE PT RESTING IN BED, COMPLAINING OF BACK AND LOWER EXTREMITY PAIN, DECLINES OFFER TO REPOSITION. PER PT SHE IS ABLE TO SHIFT HER HIPS WHEN NEEDED. PT TOLERATING HOME VENT, SPO2 100%, DECLINES NEED FOR SUCTIONING AT THIS TIME. ZENDEJAS PATENT AND DRAINING TO GRAVITY. PT ALERT AND ORIENTED, ABLE TO MOVE ALL EXTREMITIES. VSS, HR 70'S SR ON MONITOR, SBP 120'S.
--- NOTE | 2020-12-07 04:40 | NUR ---
REPORT CALLED AND GIVEN TO MARTIR PELAYO. PT TRANSPORTED TO PCU 16 VIA BED ON HOME VENT. NO PERSONAL BELONGINGS FOUND IN ROOM, MEDS AND CHART TRANSFERRED WITH PATIENT.
[2020-12-07 06:16] LABS: Hematocrit 31.4 % (33.0-51.0); Hemoglobin 9.1 g/dL (11.5-16.0); Mean Corpuscular HGB 26.1 pg (26.0-34.0); Mean Corpuscular Volume 90 fL (80-100); Mean Platelet Volume 11.5 fL (9.1-12.4); Platelet Count 256 K/mm3 (150-400); RDW Coefficient Variation 15.5 % (11.7-14.2); RDW Standard Deviation 51.1 fL (35.1-46.3); Red Blood Cell Count 3.48 M/mm3 (3.80-5.20); White Blood Cell Count 14.16 K/mm3 (4.00-11.30)
--- NOTE | 2020-12-07 06:25 | NUR ---
CARE ASSUMPTION PT TRANSFERRED FROM ICU TO PCU AT APPROX 0500. PT WAS SLID BY 4 STAFF FROM ICU BED TO PCU BED. PT A&OX4. SP02>90% ON HOMEVENT, RT IN ROOM TO ASSIST TRANSFER. PT REQUESTED TO BE SUCTIONED BY RN. TELEMETRY READS NSR, HR 80'S. PT C/O OF BACK PAIN. C/O OF HUNGER, GIVEN BEEF BROTH, WHICH PT ATE SITTING UP AT SIDE OF BED. FLUIDS INFUSING TO MEDIPORT PER EMAR. PT ORIENTED TO ROOM, CALL LIGHT IN REACH. WILL GIVE REPORT TO ONCOMING NURSE.
[2020-12-07 06:44] LABS: Albumin, Blood 2.3 g/dL (3.4-5.0); Albumin/Globulin Ratio 0.6 (0.8-1.8); Bilirubin, Total 0.1 mg/dL (0.1-1.0); Bun/Creatinine Ratio 16.4 (12.0-20.0); Calcium, Blood 8.7 mg/dL (8.5-10.1); Creatinine, Blood 0.97 mg/dL (0.40-1.00); Globulin, Blood 4.1 g/dL (2.2-4.0); Total Protein, Blood 6.4 g/dL (6.4-8.2)
[2020-12-07] MEDS ORDERED: SULTRIDS PO (12:56)
--- NOTE | 2020-12-07 16:12 | NUR ---
PT DISCHARGED TO HOME TODAY WITH DISCHARGE ORDERS. PT TO CONTINUE ANTIBIOTIC AT HOME. PT HAD NO ISSUES WITH HOME VENT PRIOR AND UPON DISCHARGE 5-8L OF O2 BLEED, PT WITH EPISODES OF PAIN AND ANXIETY. DISCHARGE INSTRUCTIONS DISCLOSED WITH THE PATIENT, PT VERBALIZED UNDERSTANDING. PRESCRIPTION SENT TO [facility] IN [place]. DAUGHTER PROVIDED TRANSPORTATION, ALLL BELONGINGS SENT WITH THE PT, ACCOMPANIED BY THIS RN AND PCT UPON DISCHARGE.
[2021-01-24] MEDS ORDERED: Norco 10-325 T1 EACH PO (21:50)
== END 2020-12-07 15:55 | disposition home or self-care (01) | DRG 208 ==
LOC: ER 11:47 → ERHOLD 14:29 → ICUW 14:29 → PCU 12-07 05:04
PROVIDERS: Emergency Medicine; Internal Medicine Critical Care Medicine; Student in an Organized Health Care Education/Training Program; ADMIT Internal Medicine
PROC: 5A1945Z Respiratory Ventilation, 24-96 Consecutive Hours (ICD-10-PCS; principal; 2020-12-03)
DX: J96.21 Acute and chronic respiratory failure with hypoxia (principal); L89.153 Pressure ulcer of sacral region, stage 3; A41.9 Sepsis, unspecified organism; J18.9 Pneumonia, unspecified organism; E27.40 Unspecified adrenocortical insufficiency; N39.0 Urinary tract infection, site not specified; E46 Unspecified protein-calorie malnutrition; R64 Cachexia; J43.9 Emphysema, unspecified; Z93.0 Tracheostomy status; D63.1 Anemia in chronic kidney disease; J44.9 Chronic obstructive pulmonary disease, unspecified; Z98.890 Other specified postprocedural states; Z90.710 Acquired absence of both cervix and uterus; Z79.899 Other long term (current) drug therapy; E87.6 Hypokalemia; F41.9 Anxiety disorder, unspecified; F32.9 Major depressive disorder, single episode, unspecified; Z87.891 Personal history of nicotine dependence; G89.29 Other chronic pain; D64.9 Anemia, unspecified; Z68.24 Body mass index [BMI] 24.0-24.9, adult
CPT/HCPCS: 31720; 36415; 36600; 51702; 71045; 80053; 80202; 81001; 82728; 82803; 83540; 83550; 83605; 83735; 84484; 85025; 85027; 86140; 87040; 87070; 87077; 87086; 87186; 87205; 92610; 93005; 93010; 94003; 94640; 94762; 96361-59; 96365-59; 99285-25; A9270; C1751; J0696; J1650; J1720; J2060; J3010; J3370; J3480; J7030; J7120; U0004

== ENCOUNTER 2020-12-07 18:45 | Emergency (ER) | payer OTHER ==
[~2020-12-07] VITALS: Ht 162.6 cm; Wt 69.8 kg
[~2020-12-07 18:45] MED LIST changes: +ATROVENT HFA12.9 GM NEB; +BROVANA15 MCG/21 NEB; +HYDROCODONE-AC1 EAC7 PO; +Hair, Skin & N1 EACH PO; +OXYB5 PO; +PANTOPRAZOLE SO40 M2 PO; +PREGABALIN100 MG PO; +QUETIAPINE FUM200 M6 PO; +REMERON15 M4 PO; +SULTRIDS PO; +TAMSULOSIN HCL0.4 M1 PO
== END 2020-12-07 21:10 | disposition home or self-care (01) ==
LOC: ER 18:45
DX: Z43.0 Encounter for attention to tracheostomy (principal); J43.9 Emphysema, unspecified; Z79.899 Other long term (current) drug therapy; Z87.891 Personal history of nicotine dependence
CPT/HCPCS: 36415; 71045; 94002; 94644; 96374; 96376; 99284-25; J1170

== ENCOUNTER 2021-01-17 23:43 | Emergency (ER) | payer OTHER ==
[~2021-01-17] VITALS: Ht 152.4 cm; Wt 52.2 kg
== END 2021-01-18 01:26 | disposition home or self-care (01) ==
LOC: ER 23:43
DX: J95.03 Malfunction of tracheostomy stoma (principal); J43.9 Emphysema, unspecified; Z79.899 Other long term (current) drug therapy; Z86.711 Personal history of pulmonary embolism; Z87.891 Personal history of nicotine dependence
CPT/HCPCS: 31502

== ENCOUNTER 2021-01-19 22:07 | Emergency (ER) | payer OTHER ==
[~2021-01-19] VITALS: Ht 147.3 cm; Wt 40.8 kg
[2021-01-19 22:40] LABS: Source, Urine Catheter
[2021-01-19 22:43] LABS: Bilirubin, Urine Neg (Neg); Blood, Urine 3+ (Neg); Glucose Qualitative, Urine Neg (Neg); Ketones, Urine Neg (Neg); Leukocyte Esterase, Urine Neg (Neg); Nitrite, Urine Neg (Neg); Protein, Urine 1+ (Neg); Urobilinogen, Urine NORM (Normal)
[2021-01-19 22:43] LABS: BASOPHILS ABSOLUTE AUTO 0.06 K/mm3 (0.00-0.23); BASOPHILS PERCENT AUTO 1 % (0-2); EOSINOPHILS ABSOLUTE AUTO 0.13 K/mm3 (0.00-0.68); EOSINOPHILS PERCENT AUTO 2 % (0-6); Hematocrit 33.8 % (33.0-51.0); Hemoglobin 9.8 g/dL (11.5-16.0); IMMATURE GRAN ABSOLUTE AUTO 0.02 K/mm3 (0.00-0.10); IMMATURE GRAN PERCENT AUTO 0 % (0-1); LYMPHOCYTES ABSOLUTE AUTO 0.77 K/mm3 (0.84-5.20); LYMPHOCYTES PERCENT AUTO 9 % (21-46); MONOCYTES ABSOLUTE AUTO 0.61 K/mm3 (0.16-1.47); MONOCYTES PERCENT AUTO 7 % (4-13); Mean Corpuscular HGB 24.9 pg (26.0-34.0); Mean Corpuscular Volume 86 fL (80-100); Mean Platelet Volume 11.8 fL (9.1-12.4); NEUTROPHILS PERCENT AUTO 82 % (41-73); Platelet Count 307 K/mm3 (150-400); RDW Coefficient Variation 15.6 % (11.7-14.2); RDW Standard Deviation 49.1 fL (35.1-46.3); Red Blood Cell Count 3.93 M/mm3 (3.80-5.20); White Blood Cell Count 8.69 K/mm3 (4.00-11.30)
[2021-01-19 22:47] LABS: Appearance, Urine Clear (Clear); Color, Urine Yellow (P-Yellow)
[2021-01-19 22:50] LABS: Bacteria Not Seen /hpf; Red Blood Cells, Urine 0-2 /hpf (0-2); Squamous Epithelial Cells Not Seen /hpf (Few); White Blood Cells, Urine Not Seen /hpf (0-5)
[2021-01-19 23:04] LABS: Anion Gap 1 mmol/L (6-16); Blood Urea Nitrogen 12 mg/dL (8-24); Bun/Creatinine Ratio 14.6 (12.0-20.0); CO2, Blood 34 mmol/L (21-32); Calcium, Blood 9.2 mg/dL (8.5-10.1); Chloride, Blood 103 mmol/L (98-108); Creatinine, Blood 0.82 mg/dL (0.40-1.00); Glomerular Filtration Rate >60 (60-); Glucose, Blood 122 mg/dL (70-99); Potassium, Blood 3.4 mmol/L (3.5-5.5); Sodium, Blood 138 mmol/L (136-145)
[2021-01-20] MEDS ORDERED: SERT100 PO (22:05)
[2021-01-20] MEDS ORDERED: ROFL500T PO (22:06)
[2021-01-20] MEDS ORDERED: Ativan1 MG PO (22:06)
[2021-01-20] MEDS ORDERED: MIRT15ST PO (22:07)
[2021-01-20] MEDS ORDERED: FOLI1 PO (22:07)
[2021-01-20] MEDS ORDERED: BUSPIRONE HCL PO (22:07)
[2021-01-20] MEDS ORDERED: OXYB5 PO (22:08)
[2021-01-20] MEDS ORDERED: PREG100 PO (22:08)
[2021-01-20] MEDS ORDERED: Brovana15 MCG/2 M NEB (22:08)
[2021-01-20] MEDS ORDERED: GUAI600T33 PO (22:10)
== END 2021-01-20 02:47 | disposition home or self-care (01) ==
LOC: ER 22:07
PROVIDERS: Student in an Organized Health Care Education/Training Program
DX: N23 Unspecified renal colic (principal); G89.29 Other chronic pain; M54.9 Dorsalgia, unspecified; R00.0 Tachycardia, unspecified; J44.9 Chronic obstructive pulmonary disease, unspecified; Z79.899 Other long term (current) drug therapy; Z86.711 Personal history of pulmonary embolism; Z87.891 Personal history of nicotine dependence; Z87.442 Personal history of urinary calculi; Z93.0 Tracheostomy status
CPT/HCPCS: 71045; 74176; 80048; 81001; 85025; 93005; 93010; 96374; 96375; 99285-25; A9270; J1885; J2405; J3010

== ENCOUNTER 2021-01-20 20:29 | Inpatient (IN) | payer OTHER ==
[~2021-01-20] VITALS: Ht 162.6 cm; Wt 55.0 kg
[2021-01-20] MEDS ORDERED: SERT100 PO (22:05)
[2021-01-20] MEDS ORDERED: ROFL500T PO (22:06)
[2021-01-20] MEDS ORDERED: Ativan1 MG PO (22:06)
[2021-01-20] MEDS ORDERED: MIRT15ST PO (22:07)
[2021-01-20] MEDS ORDERED: FOLI1 PO (22:07)
[2021-01-20] MEDS ORDERED: BUSPIRONE HCL PO (22:07)
[2021-01-20] MEDS ORDERED: Brovana15 MCG/2 M NEB (22:08)
[2021-01-20] MEDS ORDERED: PREG100 PO (22:08)
[2021-01-20] MEDS ORDERED: OXYB5 PO (22:08)
[2021-01-20] MEDS ORDERED: GUAI600T33 PO (22:10)
[2021-01-20 23:03] LABS: Anion Gap 9 mmol/L (6-16); Blood Urea Nitrogen 16 mg/dL (8-24); CO2, Blood 24 mmol/L (21-32); Calcium, Blood 9.1 mg/dL (8.5-10.1); Chloride, Blood 103 mmol/L (98-108); Creatinine, Blood 0.89 mg/dL (0.40-1.00); Glomerular Filtration Rate >60 (60-); Glucose, Blood 65 mg/dL (70-99); Potassium, Blood 5.2 mmol/L (3.5-5.5); Sodium, Blood 136 mmol/L (136-145)
[2021-01-20 23:28] LABS: Hemoglobin 10.7 g/dL (11.5-16.0); Mean Corpuscular HGB 25.2 pg (26.0-34.0); Mean Corpuscular HGB Conc 28.9 g/dL (31.5-36.5); Mean Corpuscular Volume 87 fL (80-100); Mean Platelet Volume 12.3 fL (9.1-12.4); Platelet Count 303 K/mm3 (150-400); RDW Coefficient Variation 15.9 % (11.7-14.2); RDW Standard Deviation 50.4 fL (35.1-46.3); Red Blood Cell Count 4.24 M/mm3 (3.80-5.20); White Blood Cell Count 10.21 K/mm3 (4.00-11.30)
[2021-01-21 00:10] LABS: SARS-Cov-2 (COVID-19) PCR, MMC NEGATIVE (NEGATIVE)
--- NOTE | 2021-01-21 06:23 | NUR ---
WEIGHT ENGINEER SUMMARY PT HAS MAINTAINED O2 SATS >94% ON HER HOME VENT W 6L BLEED IN. PT WAS AXO X4 WHEN SHE ARRIVED HOWEVER AFTER RECIEVING HER NIGHT-TIME MEDICATIONS SHE BECAME VERY DISORIENTED TRYING TO EXIT THE BED MULTIPLE TIMES WHILE HALF ASLEEP. PT HAD A HR IN THE 160'S SO IV LOPRESSOR GIVEN AND HER HR RESPONDED WELL DROPPING TO 130'S AND EVENTUALLY THE 90'S. BP WNL AND STABLE. PT SUCTIONED SEVERAL TIMES PRODUCING VERY THICK YELLOW SPUTUM. PT REPORTED CP ONCE BUT DESCRIBED IT PLUERITIC PAIN WHICH WAS RELIEVED W IV PAIN MEDICATION. PT ASLEEP W BED ALARM ON AND SIDERAILS UP, CALL LIGHT IS WITHIN REACH. WILL REPORT TO ONCOMING RN.
--- NOTE | 2021-01-21 09:00 | NUR ---
PT VERY SOMULENT AND OBTUNDED THIS AM. RESPONDING TO PAINFUL STIMULI. PUPILS EQUAL AND REACTIVE TO LIGHT. TELE SHOWING SINUS RHYTHM WITH HR 70-80'S. BP SOFT. NO SIGNS OF EDEMA. ON HOME VENT SETTINGS WITH 6L O2 BLEEDING IN. LUNGS SOUNDING SLIGHTLY WHEEZING AND DIM. RR 16. SATING HIGH 90'S-100%. NOT RESPONDING VERBALLY. BOWEL TONES PRESENT. ATTENDS IN PLACE. Q2 REPOSITIOING. Q6 BLOOD SUGARS. PT NPO. SKIN OVERALL FRAGILE AND BRUSINING SCATTERED BILATERAL ARMS.
[2021-01-21 09:58] LABS: Base Excess Venous 5.4 mmol/L; Bicarbonate Venous 27.7 mmol/L (24.0-30.0); PCO2 Venous 69.8 mmHg (38-42); PO2 Venous 55.5 mmHg (38-42); pH Blood Venous 7.27 (7.34-7.37)
--- NOTE | 2021-01-21 11:40 | NUR ---
VBG SHOWING CRITICAL PH. RESPIRATORY IN, PATIENT SWITCHED FROM HOME VENT TO 980 VENT. TRACH SWITCHED TO #6 XLT DISTAL WITH 11ML OF AIR. OBTURATOR AT HEAD OF BED. VENT SETTINGS RR-20, VOLUME-500, FIO2-35%, PEEP-5.0. SATING HIGH 90-100%. DR. DRAKE AWARE AND UPDATED. VBG TO BE DRAWN IN ONE HOUR. BP REAMINS SOFT. WILL CONTINUE TO MONITOR. MEDS HELD THIS MORNING PATIENT US UNABLE TO WAKE TO TAKE THEM.
[2021-01-21 13:11] LABS: Base Excess Venous 5.5 mmol/L; Bicarbonate Venous 28.7 mmol/L (24.0-30.0); PCO2 Venous 44 mmHg (38-42); PO2 Venous 50.7 mmHg (38-42); pH Blood Venous 7.44 (7.34-7.37)
--- NOTE | 2021-01-21 14:54 | NUR ---
UPDATE: SPOKE WITH DR. CARRILLO ON PHONE, UPDATED PT STATUS. 2ND VBG TRENDING IN RIGHT DIRECTION. PATIENT MAINTAINING VENT SETTINGS. SATING ABOUT 94% ON 35% FIO2. TELE SHOWING SINUS TACH WITH HR RANGING FROM 90-110'S. PT WILL OPEN EYES TO TURNING IN BED AND STERNAL RUB. BP REMAINS SOFT MAP MAINTAINING ABOVE 60 AT THIS TIME. Q2 TURNING. WILL CONTINUE TO MONITOR AND ASSESS.
--- NOTE | 2021-01-21 15:25 | NUR ---
SPOKE WITH DR. CARRILLO REGARDING SOFTER BP. WILL NOTIFY DR. CARRILLO IF MAP DROPS BELOW 60. AT THIS TIME MAP REMAINS ABOVE 60. WILL CONTINUE TO MONITOR.
--- NOTE | 2021-01-21 15:57 | NUR ---
UPDATE: PT AWAKES WITH TURNING. ABLE TO ANSWER QUESTIONS AND ALERT AND ORIENTED X3. DOES NOT KNOW DATE. DESCRIBES HAVING CHRONIC BACK PAIN AND PAIN THAT FEELS SIMILAR TO "STARTING A PERIOD". WARM BLANKETS AND REPOSITIONING PROVIDED. VITAL SIGNS STABLE. BP IMPROVING. WILL CONTINUE TO MONITOR.
--- NOTE | 2021-01-21 18:12 | NUR ---
SHIFT SUMMARY: PT REMAINS AWAKE AND ALERT. ALERT AND ORIENTED X3. TELE SHOWING SINUS TACH WITH HR 110-120. BP REMAINS SOFT, BUT MAP ABOVE 60. VENT SETTINGS 35% FIO2. MAINTAINING SATS ABOVE 94%. SUCTIONING PRN. SUCREATIONS THICK AND LIGHT EMERSON/PINK TINGED. AT THIS TIME. PATIENT ABLE TO STATE WHEN SHE NEEDS SUCTIONED. BOWEL TONES REMAIN PRESENT. ATTENDS IN PLACE AND DRY. BED BATH GIVEN. PATIENT COMPLAINS OF BACK PAIN, HEATING PAD IN PLACE. Q2 TURNING AND NEEDED. AT THIS TIME PATIENT EATING SMALL AMOUNT OF ICE CHIPS, NO SIGNS OF SWALLOWING PROBLEMS. SPEECH EVAL ORDERS IN PLACE. REMAIN NPO FOR SPEECH EVAL. WILL CONTINUE TO MONITOR AND REPORT OFF TO ONCOMING RN.
[2021-01-22 04:04] LABS: BASOPHILS ABSOLUTE AUTO 0.04 K/mm3 (0.00-0.23); BASOPHILS PERCENT AUTO 0 % (0-2); EOSINOPHILS PERCENT AUTO 0 % (0-6); Hematocrit 31.3 % (33.0-51.0); Hemoglobin 9.6 g/dL (11.5-16.0); IMMATURE GRAN ABSOLUTE AUTO 0.13 K/mm3 (0.00-0.10); IMMATURE GRAN PERCENT AUTO 1 % (0-1); LYMPHOCYTES ABSOLUTE AUTO 0.49 K/mm3 (0.84-5.20); LYMPHOCYTES PERCENT AUTO 2 % (21-46); MONOCYTES ABSOLUTE AUTO 0.25 K/mm3 (0.16-1.47); MONOCYTES PERCENT AUTO 1 % (4-13); Mean Corpuscular HGB 25.3 pg (26.0-34.0); Mean Corpuscular HGB Conc 30.7 g/dL (31.5-36.5); Mean Corpuscular Volume 83 fL (80-100); Mean Platelet Volume 12.4 fL (9.1-12.4); NEUTROPHILS PERCENT AUTO 96 % (41-73); Platelet Count 340 K/mm3 (150-400); RDW Coefficient Variation 15.9 % (11.7-14.2); RDW Standard Deviation 47.8 fL (35.1-46.3); Red Blood Cell Count 3.79 M/mm3 (3.80-5.20); White Blood Cell Count 21.21 K/mm3 (4.00-11.30)
[2021-01-22 04:32] LABS: Bun/Creatinine Ratio 23.3 (12.0-20.0); Calcium, Blood 9.6 mg/dL (8.5-10.1); Creatinine, Blood 1.2 mg/dL (0.40-1.00); Potassium, Blood 3.5 mmol/L (3.5-5.5)
--- NOTE | 2021-01-22 06:15 | NUR ---
DESIGN VERIFICATION ENGINEER SUMMARY PT MAINTAINED O2 SATS >92% ON THE VENTILATOR W 35% FIO2. PT HAS REMAINED AXO X4 THIS SHIFT. BP REMAINS SOFT BUT HAS REMAINED A MAP >60. PT SUCTIONED SEVERAL TIMES THIS SHFIT RESULTING IN THIN PINK TINGED SECRETIONS. TELE HAS SHOWN SR IN THE 80'S THIS SHIFT. WILL REPORT TO ONCOMING RN.
--- NOTE | 2021-01-22 10:01 | NUR ---
PT ALERT AND ORIENTED X4. NEURO WNL. MOUTHING WORDS DUE TO TRACH. PERRLA. DENIES NUMBNESS/TINGLING. TELE SHOWING SINUS TACH WITH HR 100-110'S. BP REMAINS SOFT. 1L FLUID BOLUS THIS AM. NO SIGNS OF EDEMA. VENT IN PLACE WITH 30% FIO2. LUNGS SOUNDING SLIGHTLY COARSE. SUCTIONING PRN. SPUTUM THIS AM LIGHT EMERSON AND PINK TINGED - MODERATELY THICK. PT COMPLAINS OF BACK PAIN. HEATING PAD IN PLACE AND TURNING NEEDED. BOWEL TONES PRESENT. ATTENDS IN PLACE. PT ABLE TO MOVE SELF IN BED. Q6 BLOOD SUGARS. SKIN OVERALL FRAGILE. BRUISING AND SCABS SCATTERED THROUGHOUT BILATERAL ARMS. CALL LIGHT IN REACH. PATIENT ABLE TO MAKE NEEDS KNOWN. SPEECH EVAL THIS AM. WILL CONTINUE TO MONITOR.
--- NOTE | 2021-01-22 13:00 | NUR ---
UPDATE: SPOKE WITH DR. CARRILLO ON PHONE. WANTING TO TRY PATIENT ON HOME VENT. THIS RN COMMUNICATED WITH RT. WILL ATTEMPT TO TRY PATIENT ON HOME VENT. VITAL SIGNS STABLE. CALL LIGHT IN REACH.
--- NOTE | 2021-01-22 13:49 | NUR ---
PT ON HOME VENT AT THIS TIME. SATING ABOVE 94%. VITAL SIGNS REMAIN STABLE. CALL PLACED TO DR. DRAKE TO UPDATE.
--- NOTE | 2021-01-22 18:08 | NUR ---
SHIFT SUMMARY: VITAL SIGNS REMAIN STABLE. NEURO UNCHANGED. TELE SHOWS SINUS TACH WITH HR 100-110'S. DENIES CHEST PAIN/PRESSURE. BP STABLE. ON HOME VENT AT THIS TIME WITH 10L 02 BLEED IN. PATIENT STATES SHE ALWAYS HAS 10L ON AT HOME. SATING HIGH 90'S. SUCTIONING PRN, SPUTUM REMAINS MODERATELY THICK AND LIGHT EMERSON/PINK TINGED IN NATURE. UP TO BS WITH 1 PERSON ASSIST VOIDING WELL. SPEECH ORDERS IN PLACE. SOFT BITE DIET, TOLERATING WELL. COMPLAINS OF LOWER BACK PAIN THAT RADIATES DOWN HER LEGS. MEDICATED PER EMAR. DENIES NEED FOR HEATING PAD AT THIS TIME. UPDATED DR DRAKE ON HOME VENT STATUS. PLAN FOR POSSIBLE DC TOMORROW. PATIENT UPDATED ON PLAN. HOSPITAL VENT REMAINS AT BEDSIDE. WILL CONTINUE TO MONITOR AND REPORT OFF TO ONCOMING RN.
--- NOTE | 2021-01-22 19:45 | NUR ---
CARE ASSUMPTION PT RESTING IN BED W C/O BEING VERY TIRED AND HAVING BACK PAIN. PT REQUESTED HER 2100 MEDS TO BE GIVEN EARLY SO SHE COULD GO TO SLEEP. PT GIVEN HEAT PACK FOR HER BACK WELL HER NIGHT MEDICATIONS AT THIS TIME. LS ARE COARSE AND O2 SATS ARE >94% ON HOME VENT W 10L BLEED IN. BP WNL AT THIS TME. PT AFEBRILE W TEMP OF 98.0. PT ASSITED TO THE BSC W ONE PERSON ASSIST. PT IS RESTING IN BED DENYING ANY OTHER NEEDS AT THIS TIME.
[2021-01-23 03:31] LABS: BASOPHILS ABSOLUTE AUTO 0.02 K/mm3 (0.00-0.23); BASOPHILS PERCENT AUTO 0 % (0-2); EOSINOPHILS PERCENT AUTO 0 % (0-6); Hematocrit 29.5 % (33.0-51.0); Hemoglobin 8.9 g/dL (11.5-16.0); IMMATURE GRAN ABSOLUTE AUTO 0.08 K/mm3 (0.00-0.10); IMMATURE GRAN PERCENT AUTO 0 % (0-1); LYMPHOCYTES ABSOLUTE AUTO 0.53 K/mm3 (0.84-5.20); LYMPHOCYTES PERCENT AUTO 3 % (21-46); MONOCYTES ABSOLUTE AUTO 0.23 K/mm3 (0.16-1.47); MONOCYTES PERCENT AUTO 1 % (4-13); Mean Corpuscular HGB Conc 30.2 g/dL (31.5-36.5); Mean Corpuscular Volume 83 fL (80-100); Mean Platelet Volume 11.7 fL (9.1-12.4); NEUTROPHILS ABSOLUTE AUTO 18.16 K/mm3 (1.96-9.15); NEUTROPHILS PERCENT AUTO 96 % (41-73); Platelet Count 328 K/mm3 (150-400); RDW Coefficient Variation 16.3 % (11.7-14.2); RDW Standard Deviation 49.8 fL (35.1-46.3); Red Blood Cell Count 3.56 M/mm3 (3.80-5.20); White Blood Cell Count 19.02 K/mm3 (4.00-11.30)
[2021-01-23 03:46] LABS: Bun/Creatinine Ratio 22.6 (12.0-20.0); Calcium, Blood 8.8 mg/dL (8.5-10.1); Creatinine, Blood 1.15 mg/dL (0.40-1.00); Potassium, Blood 3.9 mmol/L (3.5-5.5)
--- NOTE | 2021-01-23 06:21 | NUR ---
CONSULTING SYSTEMS ENGINEER SUMMARY PT HAS REMAINED AXO X4 ALL SHIFT. PT HAS MAINTAINED O2 SATS >94% ON HOME VENT W 10L BLEED IN. BP WNL AND STABLE ALL SHIFT. PT HAD C/O BACK PAIN THROUGHOUT THE SHIFT, TREATED PER EMAR. TELE SHOWING SR IN THE 90'S THIS SHIFT W SR IN THE 60'S WHILE ASLEEP. PT BEING SUCTIONED THROUGHOUT THE SHIFT RESULTING IN PINK TINGED SECRETIONS. WILL REPORT TO ONCOMING RN.
--- NOTE | 2021-01-23 07:15 | NUR ---
[facility] Received report from night nurse. Pt is resting in bed with established trach and home vent with home settings. Her sats are maintaining in the high 90's. RT is working with her. Kerri has KVO fluids infusing. She lives at home with her daughter and the plan is for her to return home today. She is able to make her needs known but can be impulsive when she needs to void.
--- NOTE | 2021-01-23 12:23 | NUR ---
Update Pt is a/o x 4. She is back to her baseline and on her home vent with home settings. Pt continues with chronic pain. Pt has been dcd but we have been unsuccessful in arranging a family member to come and pick her up. The youth care professional is working on transport now and then we will make another attempt to reach out to family. The daughter who lives out of town was sending a message through social media to the brother in law who is currently the patient's caregiver.
--- NOTE | 2021-01-23 15:28 | NUR ---
DC NOTE Pt mediport deaccessed and dc instructions reviewed with the pt who confirms an understanding. Med rec faxed to pharmacy. The pt caregiver called from the screening desk to report that they are here to pick her up and go home. All personal belongings packed and sent with the pt. Pt stable upon dc.
[2021-01-24] MEDS ORDERED: Norco 10-325 T1 EACH PO (21:50)
== END 2021-01-23 15:43 | disposition home or self-care (01) | DRG 208 ==
LOC: ER 20:29 → PCU 22:20
PROVIDERS: Emergency Medicine; Hospitalist; Student in an Organized Health Care Education/Training Program; ADMIT Internal Medicine
PROC: 5A1945Z Respiratory Ventilation, 24-96 Consecutive Hours (ICD-10-PCS; principal; 2021-01-20)
PROC: 0B21XFZ Change Tracheostomy Device in Trachea, External Approach (ICD-10-PCS; 2021-01-20)
DX: J96.21 Acute and chronic respiratory failure with hypoxia (principal); E43 Unspecified severe protein-calorie malnutrition; E27.49 Other adrenocortical insufficiency; R64 Cachexia; N17.9 Acute kidney failure, unspecified; Z68.1 Body mass index [BMI] 19.9 or less, adult; Z20.822 Contact with and (suspected) exposure to COVID-19; J43.9 Emphysema, unspecified; M81.0 Age-related osteoporosis without current pathological fracture; D63.8 Anemia in other chronic diseases classified elsewhere; J96.22 Acute and chronic respiratory failure with hypercapnia; F41.8 Other specified anxiety disorders; G89.4 Chronic pain syndrome; Z90.89 Acquired absence of other organs; Z98.890 Other specified postprocedural states; Z95.828 Presence of other vascular implants and grafts; Z90.2 Acquired absence of lung [part of]; Z90.710 Acquired absence of both cervix and uterus; Z87.09 Personal history of other diseases of the respiratory system; Z93.0 Tracheostomy status; Z79.52 Long term (current) use of systemic steroids; Z79.899 Other long term (current) drug therapy; Z22.322 Carrier or suspected carrier of Methicillin resistant Staphylococcus aureus; Z22.39 Carrier of other specified bacterial diseases; Z86.711 Personal history of pulmonary embolism; Z87.891 Personal history of nicotine dependence
CPT/HCPCS: 31502; 36415; 71045; 80048; 82803; 82947; 85025; 85027; 92610; 94002; 94003; 94640; 94644; 94762; 96374; 96375; 96376; 97161; 99285-25; A9270; C9113; J1642; J1650; J2060; J2930; J3010; J7030; J7050; U0004

== ENCOUNTER 2021-01-31 13:00 | Emergency (ER) | payer OTHER ==
[~2021-01-31] VITALS: Ht 160 cm; Wt 63.5 kg
[~2021-01-31 13:00] MED LIST changes: +Ativan1 MG PO; +BUSPIRONE HCL PO; +Brovana15 MCG/2 M NEB; +MIRT15ST PO; +Norco 10-325 T1 EACH PO
[2021-01-31 14:58] LABS: Alanine Aminotransfer (ALT/SGP 20 U/L (12-78); Albumin, Blood 2.8 g/dL (3.4-5.0); Albumin/Globulin Ratio 0.6 (0.8-1.8); Alk Phos 114 U/L (50-136); Anion Gap 7 mmol/L (6-16); Aspartate Aminotrans (AST/SGOT 18 U/L (12-37); Bilirubin, Total 0.4 mg/dL (0.1-1.0); Blood Urea Nitrogen 21 mg/dL (8-24); Bun/Creatinine Ratio 24.4 (12.0-20.0); CO2, Blood 29 mmol/L (21-32); Calcium, Blood 9.4 mg/dL (8.5-10.1); Chloride, Blood 103 mmol/L (98-108); Creatinine, Blood 0.86 mg/dL (0.40-1.00); Globulin, Blood 4.8 g/dL (2.2-4.0); Glomerular Filtration Rate >60 (60-); Glucose, Blood 79 mg/dL (70-99); Potassium, Blood 3.7 mmol/L (3.5-5.5); Sodium, Blood 139 mmol/L (136-145); Total Protein, Blood 7.6 g/dL (6.4-8.2)
[2021-01-31 15:17] LABS: BASOPHILS ABSOLUTE AUTO 0.05 K/mm3 (0.00-0.23); BASOPHILS PERCENT AUTO 0 % (0-2); EOSINOPHILS ABSOLUTE AUTO 0.13 K/mm3 (0.00-0.68); EOSINOPHILS PERCENT AUTO 1 % (0-6); Hemoglobin 10.8 g/dL (11.5-16.0); IMMATURE GRAN ABSOLUTE AUTO 0.14 K/mm3 (0.00-0.10); IMMATURE GRAN PERCENT AUTO 1 % (0-1); LYMPHOCYTES ABSOLUTE AUTO 1.07 K/mm3 (0.84-5.20); LYMPHOCYTES PERCENT AUTO 8 % (21-46); MONOCYTES ABSOLUTE AUTO 0.63 K/mm3 (0.16-1.47); MONOCYTES PERCENT AUTO 5 % (4-13); Mean Corpuscular HGB 25.2 pg (26.0-34.0); Mean Corpuscular HGB Conc 30.9 g/dL (31.5-36.5); Mean Corpuscular Volume 82 fL (80-100); NEUTROPHILS ABSOLUTE AUTO 11.35 K/mm3 (1.96-9.15); NEUTROPHILS PERCENT AUTO 85 % (41-73); RDW Coefficient Variation 17.2 % (11.7-14.2); RDW Standard Deviation 49.9 fL (35.1-46.3); Red Blood Cell Count 4.28 M/mm3 (3.80-5.20); White Blood Cell Count 13.37 K/mm3 (4.00-11.30)
[2021-01-31 15:47] LABS: SARS-Cov-2 (COVID-19) PCR, MMC NEGATIVE (NEGATIVE)
[2021-01-31 16:19] LABS: Mean Platelet Volume 11.5 fL (9.1-12.4); Platelet Count 284 K/mm3 (150-400)
== END 2021-01-31 19:17 | disposition home or self-care (01) ==
LOC: ER 13:00
PROVIDERS: Emergency Medicine
DX: G89.29 Other chronic pain (principal); R51.9 Headache, unspecified; R11.2 Nausea with vomiting, unspecified; Z91.14 Patient's other noncompliance with medication regimen; J44.9 Chronic obstructive pulmonary disease, unspecified; F17.200 Nicotine dependence, unspecified, uncomplicated; Z20.822 Contact with and (suspected) exposure to COVID-19; Z79.899 Other long term (current) drug therapy; Z93.0 Tracheostomy status
CPT/HCPCS: 36415; 71045; 80053; 85025; 93005; 93010; 96361; 96374; 96375; 99284-25; J1200; J1642; J1885; J2270; J2765; J7120; U0004

== ENCOUNTER 2021-02-03 08:00 | Emergency (ER) | payer OTHER ==
[~2021-02-03] VITALS: Ht 165.1 cm; Wt 59.0 kg
[2021-02-03] MEDS ORDERED: Norco 10-325 T1 EACH PO ×2 (09:34→10:38)
[2021-02-03] MEDS ORDERED: Ativan1 MG PO (09:34)
== END 2021-02-03 16:50 | disposition home or self-care (01) ==
LOC: ER 08:00
DX: F11.23 Opioid dependence with withdrawal (principal); G89.29 Other chronic pain; J44.9 Chronic obstructive pulmonary disease, unspecified; F17.200 Nicotine dependence, unspecified, uncomplicated; Z79.899 Other long term (current) drug therapy; Z86.711 Personal history of pulmonary embolism
CPT/HCPCS: 93005; 93010; 99284-25; A9270

== ENCOUNTER 2021-02-21 13:39 | Emergency (ER) | payer OTHER ==
[~2021-02-21] VITALS: Ht 165.1 cm; Wt 59.0 kg
== END 2021-02-21 18:10 | disposition home or self-care (01) ==
LOC: ER 13:39
DX: Z43.0 Encounter for attention to tracheostomy (principal); F41.9 Anxiety disorder, unspecified; J43.9 Emphysema, unspecified; F17.200 Nicotine dependence, unspecified, uncomplicated; Z79.899 Other long term (current) drug therapy; Z86.711 Personal history of pulmonary embolism
CPT/HCPCS: 31502; 71045; 99284-25; A9270; J1885

== ENCOUNTER 2021-02-26 17:43 | Emergency (ER) | payer OTHER ==
[~2021-02-26] VITALS: Ht 165.1 cm; Wt 59.0 kg
[2021-02-26 18:05] LABS: Bicarbonate Venous 34.5 mmol/L (24.0-30.0); PCO2 Venous 47.9 mmHg (38-42); PO2 Venous 142 mmHg (38-42); pH Blood Venous 7.48 (7.34-7.37)
== END 2021-02-26 21:30 | disposition home or self-care (01) ==
LOC: ER 17:43
PROVIDERS: Emergency Medicine
DX: T17.590A Other foreign object in bronchus causing asphyxiation, initial encounter (principal); M54.9 Dorsalgia, unspecified; J43.9 Emphysema, unspecified; D64.9 Anemia, unspecified; M81.0 Age-related osteoporosis without current pathological fracture; F17.200 Nicotine dependence, unspecified, uncomplicated; Z86.711 Personal history of pulmonary embolism; Z79.52 Long term (current) use of systemic steroids; Z79.899 Other long term (current) drug therapy
CPT/HCPCS: 31502; 31720; 71045; 72100; 82803; 96374; 96375; 96376; 99285-25; J2270; J2405

== ENCOUNTER 2021-04-18 20:09 | Emergency (ER) | payer OTHER ==
[~2021-04-18] VITALS: Ht 165.1 cm; Wt 59.0 kg
== END 2021-04-18 21:56 | disposition home or self-care (01) ==
LOC: ER 20:09
DX: Z43.0 Encounter for attention to tracheostomy (principal); L89.329 Pressure ulcer of left buttock, unspecified stage; L89.319 Pressure ulcer of right buttock, unspecified stage; J43.9 Emphysema, unspecified; F17.200 Nicotine dependence, unspecified, uncomplicated; Z79.52 Long term (current) use of systemic steroids; Z79.899 Other long term (current) drug therapy
CPT/HCPCS: 99283; A9270

== ENCOUNTER 2021-04-21 04:10 | Inpatient (IN) | payer OTHER ==
[~2021-04-21] VITALS: Ht 167.6 cm; Wt 58.8 kg
[2021-04-21 04:56] LABS: BASOPHILS ABSOLUTE AUTO 0.09 K/mm3 (0.00-0.23); BASOPHILS PERCENT AUTO 0 % (0-2); EOSINOPHILS ABSOLUTE AUTO 0.16 K/mm3 (0.00-0.68); EOSINOPHILS PERCENT AUTO 1 % (0-6); Hematocrit 32.8 % (33.0-51.0); Hemoglobin 9.5 g/dL (11.5-16.0); IMMATURE GRAN ABSOLUTE AUTO 0.09 K/mm3 (0.00-0.10); IMMATURE GRAN PERCENT AUTO 0 % (0-1); LYMPHOCYTES ABSOLUTE AUTO 0.77 K/mm3 (0.84-5.20); LYMPHOCYTES PERCENT AUTO 4 % (21-46); MONOCYTES ABSOLUTE AUTO 0.83 K/mm3 (0.16-1.47); MONOCYTES PERCENT AUTO 4 % (4-13); Mean Corpuscular Volume 83 fL (80-100); Mean Platelet Volume 11.8 fL (9.1-12.4); NEUTROPHILS ABSOLUTE AUTO 18.48 K/mm3 (1.96-9.15); NEUTROPHILS PERCENT AUTO 91 % (41-73); Platelet Count 423 K/mm3 (150-400); RDW Coefficient Variation 17.8 % (11.7-14.2); RDW Standard Deviation 53.3 fL (35.1-46.3); Red Blood Cell Count 3.96 M/mm3 (3.80-5.20); White Blood Cell Count 20.42 K/mm3 (4.00-11.30)
[2021-04-21 05:54] LABS: Troponin I <0.015 ng/mL (0.000-0.040)
[2021-04-21 05:55] LABS: Alanine Aminotransfer (ALT/SGP 12 U/L (12-78); Albumin, Blood 2.2 g/dL (3.4-5.0); Albumin/Globulin Ratio 0.5 (0.8-1.8); Alk Phos 133 U/L (50-136); Anion Gap 6 mmol/L (6-16); Aspartate Aminotrans (AST/SGOT 8 U/L (12-37); Bilirubin, Total 0.2 mg/dL (0.1-1.0); Blood Urea Nitrogen 21 mg/dL (8-24); Bun/Creatinine Ratio 19.3 (12.0-20.0); CO2, Blood 37 mmol/L (21-32); Calcium, Blood 8.6 mg/dL (8.5-10.1); Chloride, Blood 100 mmol/L (98-108); Creatinine, Blood 1.09 mg/dL (0.40-1.00); Globulin, Blood 4.5 g/dL (2.2-4.0); Glomerular Filtration Rate 52 (60-); Glucose, Blood 116 mg/dL (70-99); Potassium, Blood 3.8 mmol/L (3.5-5.5); Sodium, Blood 143 mmol/L (136-145); Total Protein, Blood 6.7 g/dL (6.4-8.2)
[2021-04-21 06:29] LABS: Influenza A, PCR NEGATIVE (NEGATIVE); Influenza B, PCR NEGATIVE (NEGATIVE); Resp Syncytial Virus, PCR NEGATIVE (NEGATIVE); SARS-Cov-2 (COVID-19) PCR, MMC NEGATIVE (NEGATIVE)
[2021-04-21 07:35] LABS: Base Excess Venous 12.1 mmol/L; Bicarbonate Venous 34.6 mmol/L (24.0-30.0); PCO2 Venous 49.7 mmHg (38-42); PO2 Venous 170 mmHg (38-42); pH Blood Venous 7.47 (7.34-7.37)
--- NOTE | 2021-04-21 16:47 | NUR ---
PT USING CALL LIGHT APPROPRIATELY, REQUEST ATIVAN FOR ANXIETY. DR NATION AT BEDSIDE. NEW ORDER PLACED FOR ATIVAN IV. DILAUDID CHANGED TO Q2 HR PER DR NATION.
[2021-04-22 05:43] LABS: BASOPHILS ABSOLUTE AUTO 0.03 K/mm3 (0.00-0.23); BASOPHILS PERCENT AUTO 0 % (0-2); EOSINOPHILS ABSOLUTE AUTO 0.03 K/mm3 (0.00-0.68); EOSINOPHILS PERCENT AUTO 0 % (0-6); Hemoglobin 7.3 g/dL (11.5-16.0); IMMATURE GRAN ABSOLUTE AUTO 0.06 K/mm3 (0.00-0.10); IMMATURE GRAN PERCENT AUTO 0 % (0-1); LYMPHOCYTES ABSOLUTE AUTO 0.66 K/mm3 (0.84-5.20); LYMPHOCYTES PERCENT AUTO 4 % (21-46); MONOCYTES ABSOLUTE AUTO 0.42 K/mm3 (0.16-1.47); MONOCYTES PERCENT AUTO 3 % (4-13); Mean Corpuscular HGB 23.6 pg (26.0-34.0); Mean Corpuscular HGB Conc 28.1 g/dL (31.5-36.5); Mean Corpuscular Volume 84 fL (80-100); Mean Platelet Volume 12.7 fL (9.1-12.4); NEUTROPHILS ABSOLUTE AUTO 14.98 K/mm3 (1.96-9.15); NEUTROPHILS PERCENT AUTO 93 % (41-73); Platelet Count 323 K/mm3 (150-400); RDW Coefficient Variation 18.1 % (11.7-14.2); RDW Standard Deviation 55.2 fL (35.1-46.3); Red Blood Cell Count 3.09 M/mm3 (3.80-5.20); White Blood Cell Count 16.18 K/mm3 (4.00-11.30)
[2021-04-22 05:54] LABS: Anion Gap 3 mmol/L (6-16); Blood Urea Nitrogen 21 mg/dL (8-24); Bun/Creatinine Ratio 25.7 (12.0-20.0); CO2, Blood 36 mmol/L (21-32); Chloride, Blood 105 mmol/L (98-108); Creatinine, Blood 0.82 mg/dL (0.40-1.00); Glomerular Filtration Rate >60 (60-); Glucose, Blood 112 mg/dL (70-99); Potassium, Blood 4.1 mmol/L (3.5-5.5); Sodium, Blood 144 mmol/L (136-145)
--- NOTE | 2021-04-22 05:56 | NUR ---
Weaned off of norepi drip through night. Blood pressure drop again with requested dose of dilaudid and ativan. Norepi restarted. pain meds and ativan given as needed through out shift. Pain responds well and will drift off to sleep but becomes hypotensive with doses.
--- NOTE | 2021-04-22 08:47 | NUR ---
AM NOTE... ASSUMED CARE OF PT AT 0700, PT IS VERY SLEEPY/SEDATED, OPENS EYES TO LOUD VERBAL STIMULI BUT THEN FALLS BACK ASLEEP QUICKLY. THE PT IS ON HER HOME VENT WITH HER HOME VENT SETTINGS WITH A 3L BLEED IN KEEPING HER O2 SATS >89%. L/S SCATTERED WHEEZES T/O DIM IN THE BASES, RR IS 18-24. PT IS IN SR IN THE 50'S WHILE SLEEPING AND THE 70'S-80'S WHEN SHE IS AWAKE. THE PT WAS ON LEVOPHED AT 1MCG AT THE START OF THIS SHIFT, THIS WAS PUT ON STAND BY AT 0720, THE PT'S MAPS HAVE BEEN >60 SINCE THEN. NO EDEMA IS NOTED ON ASSESSMENT. BT PRESENT AND HYPOACTIVE, ABD IS SOFT AND NONTENDER TO PALP. THE PT IS LEANING TO THE LEFT TO STAY OFF OF THE PRESSURE ULCER ON THE RIGHT BUTTOCKS, PICTURES IN THE CHART. PROVIDER AT THE BEDSIDE TO ASSESS THE PT, THIS RN SPOKE WITH THE PROVIDER ABOUT A WOUND CARE CONSULT ESPECIALLY WHEN THE PT IS D/C'd HOME. THIS RN ALSO SPOKE WITH THE PROVIDER ABOUT THE PT'S SEDATION AND LOW BPs WHEN SHE IS GIVEN PAIN MEDICATIONS AND ATIVAN IV. CHANGES MADE TO THE PT'S EMAR. CALL LIGHT IN REACH WILL CONTINUE TO MONITOR.
[2021-04-22 12:54] LABS: Hematocrit 26.9 % (33.0-51.0); Hemoglobin 7.7 g/dL (11.5-16.0)
--- NOTE | 2021-04-22 14:22 | NUR ---
PT UPDATE.... THIS RN NOTED THE PT HAD A 10MLS SYRINGE IN HER HAND, THE PT STATED IT WAS "MINE" THE PT THEN DEFLATED HER CUFF SAYING "I CAN'T BREATH" THIS RN ATTEMPTED TO EDUCATE THE PT ON THE IMPORTANCE OF KEEPING THE CUFF INFLATED TO ALLOW THE VENT TO WORK PROPERLY. THE PT NODDED HER UNDERSTANDING. THE PT HAS BEEN SLEEPING MOST OF THIS SHIFT, EVERY TIME STAFF ENTERS THE ROOM SHE OPENS HER EYES JUST A LITTLE BIT ASKS FOR PAIN MEDICATIONS THEN HER EYES CLOSE AND SHE FALLS BACK ASLEEP. WHEN THE PAIN MEDICATION IS NOT AVAILABLE SHE THEN SAYS "WELL GIVE ME SOME ATIVAN THEN." AND FELL BACK ASLEEP. THE PT HAS HAD SEVERAL EPISODES OF URINARY INCONT THIS SHIFT, SHE HAS ATTEMPTED TO USE THE BED HOUSE AT TIMES BUT ONLY IS ABLE TO VOID SMALL AMOUNTS WHEN SHE IS ABLE TO GO. A CONSULT WAS PLACED TO THE [facility]OUND [facility]ARE [facility]ENTER FOR THE WOUND ON HER RIGHT HIP/BUTTOCKS. WILL CONTINUE TO MONITOR.
--- NOTE | 2021-04-22 17:35 | NUR ---
SHIFT SUMMARY... NO ACUTE NEGATIVE CHANGES NOTED THIS SHIFT. THE PT HAS BEEN OFF OF LEVOPHED SINCE 0720 THIS AM WITH SOFT BUT STABLE BPs. THE PT'S OTHER VS HAVE BEEN STABLE. THE PT HAS SLEPT MOST OF THIS SHIFT, WAKING DURING CARE AND ASKING FOR PAIN MEDICATIONS. THE PT HAS BEEN INCONT OF URINE FOR MOST OF THIS SHIFT. THE PT HAS NOT HAD A BM THIS SHIFT. THE PT HAS BEEN UNABLE TO STAY AWAKE LONG ENOUGH TO EAT HER MEALS. THE WOUND ON THE PT'S RIGHT HIP DRESSING WAS CHANGED AND ASSESSED BY A GREEN WARE CASTER, PER THE GREEN WARE CASTER THE DRESSING SHOULD BE CALCIUM ALGINATE COVERED BY A MEPILEX AND CHANGED Q3 DAYS UNLESS THE DRESSING IS >50% SOILED. A MEPILEX WAS PLACED ON THE PT'S LEFT HIP D/T A RED AREA, THIS AREA IS STILL BLANCHABLE. THE PT HAS BEEN TURNED Q2 HRS BUT WILL TURN HERSELF BACK ONTO HER LEFT SIDE WITH IN A MATTER OF MINUTES. PT EDUCATED ON PRESSURE ULCER PREVENTION, VERBALIZED HER UNDERSTANDING BUT STILL CONTINUES TO REFUSE TO STAY OFF THE LEFT SIDE. CALL LIGHT IN REACH WILL CONTINUE TO MONITOR UNTIL REPORT IS GIVEN TO ONCOMING RN.
--- NOTE | 2021-04-22 21:10 | NUR ---
at 1999 O2 sats dropped to 75%, increased oxygen to 10L, suctioned a large amount of thick sputum from trach. at 2029 O2 sats up to 100%- decreased O2 to 5L at 2104 O2 sats 90-91%- increased O2 to 7L
--- NOTE | 2021-04-22 23:30 | NUR ---
At 0- home vent alarming "check circut", unable to trouble shoot problem, RT notified. Circut changed out by RT. Having increased amount of coughing, heart rate increased to 150's. Suctioned large amount of thick sputum from trach at 2300 home vent continues to alarm "check circut", RT is unable to more than already completed with home vent- will need to private branch exchange installer to hospital vent 2314 Dr Lewis notified of needing to private branch exchange installer to hospital vent due to failure of home vent. Status will need to change to ICU if on hospital vent- order recieved to private branch exchange installer to ICU status and change to hospital vent.
--- NOTE | 2021-04-23 00:39 | NUR ---
On hospital vent. Resting at this time. FiO2 increased to 45% due to low O2 sats. Sats improved. decrease in pulse and b/p after ativan given. will monitor
[2021-04-23 02:23] LABS: Source, Urine Catheter
[2021-04-23 02:26] LABS: Bilirubin, Urine Neg (Neg); Blood, Urine Neg (Neg); Glucose Qualitative, Urine Neg (Neg); Ketones, Urine Neg (Neg); Leukocyte Esterase, Urine Neg (Neg); Nitrite, Urine Neg (Neg); Protein, Urine 1+ (Neg); Urobilinogen, Urine NORM (Normal); pH, Urine 6.5 (5.0-8.0)
[2021-04-23 02:57] LABS: Appearance, Urine Clear (Clear); Color, Urine Yellow (P-Yellow)
[2021-04-23 03:33] LABS: BASOPHILS ABSOLUTE AUTO 0.02 K/mm3 (0.00-0.23); BASOPHILS PERCENT AUTO 0 % (0-2); EOSINOPHILS PERCENT AUTO 0 % (0-6); Hematocrit 22.9 % (33.0-51.0); Hemoglobin 6.6 g/dL (11.5-16.0); IMMATURE GRAN ABSOLUTE AUTO 0.04 K/mm3 (0.00-0.10); IMMATURE GRAN PERCENT AUTO 0 % (0-1); LYMPHOCYTES ABSOLUTE AUTO 0.67 K/mm3 (0.84-5.20); LYMPHOCYTES PERCENT AUTO 6 % (21-46); MONOCYTES ABSOLUTE AUTO 0.32 K/mm3 (0.16-1.47); MONOCYTES PERCENT AUTO 3 % (4-13); Mean Corpuscular HGB 23.9 pg (26.0-34.0); Mean Corpuscular HGB Conc 28.8 g/dL (31.5-36.5); Mean Corpuscular Volume 83 fL (80-100); Mean Platelet Volume 12.6 fL (9.1-12.4); NEUTROPHILS ABSOLUTE AUTO 10.22 K/mm3 (1.96-9.15); NEUTROPHILS PERCENT AUTO 91 % (41-73); Platelet Count 334 K/mm3 (150-400); RDW Coefficient Variation 18.4 % (11.7-14.2); RDW Standard Deviation 54.5 fL (35.1-46.3); Red Blood Cell Count 2.76 M/mm3 (3.80-5.20); White Blood Cell Count 11.27 K/mm3 (4.00-11.30)
[2021-04-23 04:15] LABS: Anion Gap 3 mmol/L (6-16); Blood Urea Nitrogen 20 mg/dL (8-24); Bun/Creatinine Ratio 21.6 (12.0-20.0); CO2, Blood 33 mmol/L (21-32); Calcium, Blood 8.3 mg/dL (8.5-10.1); Chloride, Blood 109 mmol/L (98-108); Creatinine, Blood 0.93 mg/dL (0.40-1.00); Glomerular Filtration Rate >60 (60-); Glucose, Blood 111 mg/dL (70-99); Sodium, Blood 145 mmol/L (136-145)
--- NOTE | 2021-04-23 04:20 | NUR ---
Dr Lewis notified of H&H, orders recieved for transfusion.
--- NOTE | 2021-04-23 05:25 | NUR ---
Start of shift was anxious and having alot of coughing with thick sputum. Episode of SVT with rate up to 150. Home vent alarming and unable to fix, changed over to hospital vent by RT with no further issues after changing. Had occurances of incontinence of urine, with bedpan usage only able to urinate 100-400 ml at a time. Taylor placed to protect wound, 1300 ml in bladder after incontinence episode. After vent change and taylor placed, rested comfortably rest of night. Hgb 6.6 this am, advised dr and recieved order to transfuse. consent form signed, awaiting blood product.
--- NOTE | 2021-04-23 10:04 | NUR ---
ASSUMED CARE OF PATIENT: AOX4, LETHARGIC, BLOOD INFUSING, VSS W/ SOME ST 110S, APPEARS COMFORTABLE AT TIMES AND OTHERS ANXIOUS, SELF SUCTINING TACH.
[2021-04-23 10:14] LABS: Hematocrit 26.4 % (33.0-51.0); Hemoglobin 8.1 g/dL (11.5-16.0)
[2021-04-23 13:39] LABS: Hematocrit 28.9 % (33.0-51.0); Hemoglobin 8.8 g/dL (11.5-16.0)
[2021-04-23 14:19] LABS: Vancomycin, Trough 22.7 ug/mL (5.0-10.0)
--- NOTE | 2021-04-23 17:19 | NUR ---
AOX4, COMMUNICATES NONVERBALLY, ANXIOUS, ATIVAN 1MG X2 GIVEN, COMPLAINS OF CHRONIC BACK PAIN, DILAUDID 1MG X2 GIVEN, NSR 60-80S BASELINE BUT ST 130S D/T ANXIETY MD AWARE, ATRAXA 25MG GIVEN, BP WNL, 1 UNIT RBCS FINISHED, H&H UP 8.8 HGB, LUNGS COARSE/EXP WHEEZES, CONTINUES VENT HIGH 50%, COPIOUS AMOUNT OF MODERATE THICK SECRETIONS EMERSON, ZENDEJAS DRAINS KWAKU OUTPUT, AUDIBLE BOWELS NON-TENDER, ATTEMPTED TO START BACK ON HOME VENT BUT DESATURATED ON 15l, TOLERATED MEALS WELL 90%.
--- NOTE | 2021-04-23 19:00 | NUR ---
ASSUME CARE: PT A&0X4, NONVERBAL, TRACH TO HOME VENT. SETTINGS ARE SIMV 16/500/5/50% AND SATING 98%. TRACH IS A SIZE 6 XLT. HOME VENT CONTINUES TO ALARM AND RT IS CURRENTLY CHANGING THE CIRCUT. SHE COMPLAINS OF 8/10 CHRONIC PAIN IN HER BACK. PRN PAIN MEDS GIVEN. HR 120'S AND SBP 90'S W/ MAP OF 70. ZENDEJAS IN PLACE DRAINING YELLOW URINE TO GRAVITY AND PT HAS NOT HAD A BM SINCE ADMISSION. SKIN IS WARM W/ GENERALIZED BRUISING AND SCABS W/ A PRESSURE WOUND TO THE RIGHT HIP/BUTTOCKS. THE DRESSING WAS CHANGED ON 04/22 AND IS C/D/I. SEE SHIFT ASSESSMENT FOR DETAILS.
[2021-04-24 05:15] LABS: BASOPHILS ABSOLUTE AUTO 0.02 K/mm3 (0.00-0.23); BASOPHILS PERCENT AUTO 0 % (0-2); EOSINOPHILS ABSOLUTE AUTO 0.04 K/mm3 (0.00-0.68); EOSINOPHILS PERCENT AUTO 1 % (0-6); Hematocrit 26.9 % (33.0-51.0); Hemoglobin 7.8 g/dL (11.5-16.0); IMMATURE GRAN ABSOLUTE AUTO 0.03 K/mm3 (0.00-0.10); IMMATURE GRAN PERCENT AUTO 0 % (0-1); LYMPHOCYTES ABSOLUTE AUTO 0.78 K/mm3 (0.84-5.20); LYMPHOCYTES PERCENT AUTO 11 % (21-46); MONOCYTES ABSOLUTE AUTO 0.31 K/mm3 (0.16-1.47); MONOCYTES PERCENT AUTO 4 % (4-13); Mean Corpuscular HGB 24.9 pg (26.0-34.0); Mean Corpuscular Volume 86 fL (80-100); Mean Platelet Volume 12.5 fL (9.1-12.4); NEUTROPHILS ABSOLUTE AUTO 6.28 K/mm3 (1.96-9.15); NEUTROPHILS PERCENT AUTO 84 % (41-73); Platelet Count 285 K/mm3 (150-400); RDW Coefficient Variation 18.3 % (11.7-14.2); RDW Standard Deviation 57.1 fL (35.1-46.3); Red Blood Cell Count 3.13 M/mm3 (3.80-5.20); White Blood Cell Count 7.46 K/mm3 (4.00-11.30)
[2021-04-24 06:05] LABS: Bun/Creatinine Ratio 17.8 (12.0-20.0); Calcium, Blood 8.6 mg/dL (8.5-10.1); Creatinine, Blood 1.01 mg/dL (0.40-1.00); Potassium, Blood 3.7 mmol/L (3.5-5.5)
--- NOTE | 2021-04-24 06:14 | NUR ---
SHIFT SUMMARY: NO ACUTE OVERNIGHT EVENTS. PT RESTING QUIETLY IN BED BUT AROUSABLE AND A&OX4. ON HER HOME VENT SHE IS SATING 100%. HR IN 60'S AND BP WNL. ZENDEJAS REMAINS IN PLACE DRAINING YELLOW URINE TO GRAVITY. SHE IS AFEBRILE AND HAS NOT COMPLAINED OF PAIN SINCE AROUND MIDNIGHT. NO BM THIS SHIFT. SKIN IS WARM AND DRY AND DRESSING ON RIGHT BUTTOCK/HIP AND RIGHT FOREARM ARE C/D/I. NS TKO INFUSING TO MEDIPORT ON RIGHT CHEST. WILL REPORT TO ONCOMING RN WHEN AVAILABLE.
--- NOTE | 2021-04-24 08:43 | NUR ---
ASSUMED CARE OF PATIENT: AOX4, ANXIOUS, COMPLAINS OF BACK PAIN 7, GIVEN DILAUDID, ON HOME VENT, VSS, NS TKO TO PORT.
[2021-04-24 14:14] LABS: Hematocrit 30.5 % (33.0-51.0); Hemoglobin 8.9 g/dL (11.5-16.0)
--- NOTE | 2021-04-24 15:52 | NUR ---
SOCIAL CONCERNS: SELVIN REP IN TO ASSESS PT'S HOME VENT ALARMS. HOME VENT ISSUES ADDRESSED. REP THEN OUT OF ROOM AND SHARES CONCERNS REGARDING PT'S HOME CARE WITH THIS RN. SHE STATES THAT IT HAS BECOME INCREASINGLY DIFFICULT TO CONTACT THE PATIENT AT HOME AND THAT WHEN SHE MAKES HOME VISITS TO THE PATIENT, THE PATIENT IS ALWAYS IN HER BACK BEDROOM ALONE AND SEEMS INCREASINGLY DEPRESSED AND WITHDRAWN. ATTEMPT TO CONTACT CARE MANAGEMENT RN ON SHIFT TODAY AND SHE IS UNABLE TO ASSIST WITH THIS PT'S CASE AT THIS TIME. CALL MADE TO PALLIATIVE CARE RN, CASIMIRO. CASIMIRO SUGGESTS HAVING AN RT WHO HAS PREVIOUS RAPPORT WITH THE PT ATTEMPT TO ASSESS PT'S SOCIAL SITUATION, CASIMIRO ALSO REPORTS SHE WILL MAKE A REPORT TO [facility] ON TUESDAY TO SHARE OUR CONCERNS. RT MARIO ALBERTO IN TO PT'S ROOM, HAS DISCUSSION WITH THE PT. PT STATES SHE HAS MULTIPLE PEOPLE LIVING IN HER HOME WHOM SHE IS UNCOMFORTABLE WITH, AND THAT IS THE REASON WHY SHE DOES NOT LEAVE HER BEDROOM OR HER HOME ANYMORE. HER DAUGHTER IS HER PRIMARY SUPPORT PERSON AT HOME BUT SHE WORKS AND IS NOT THERE DURING THE DAYTIME. HER SON IN LAW IS THERE BUT IS UNWILLING TO ASSIST WITH HER CARE. PT STATES SHE WOULD REALLY LIKE TO HAVE HOME HEALTH SERVICES FOR 35 HOURS PER WEEK IF POSSIBLE. PT APPRECIATIVE OF THE CONVERSATION.
--- NOTE | 2021-04-24 18:18 | NUR ---
AOX4, DENIES N/V, COMPLAINS OF CHRONIC BACK PAIN, 1MG DILAUDID X2 GIVEN, 1 NORCO GIVEN, ANXIETY CONTINUES IMPROVED FROM PREVIOUS DAY, 1MG ATIVAN GIVEN, ATARAX X1 GIVEN, HR NST 80/90S HIGH 120S WITH ANXIETY, BP WNL, SATS WNL, ABLE TO SET UP NEW HOME VENT ADJUSTED SETTINGS, HOME VENT DOES NOT FREQUENTLY ALARM NOW, TRACH AND INNER CANNULA CHANGED PER RT, COPIOUS SECRETIONS AMOUNT REQUIRING FREQUENT SUCTIONING, H&H STABLE, LUNGS COARSE WITH SOME EXP WHEEZES, UOP ADEQUATE KWAKU OUTPUT, NO BM SINCE ADMIT, MIRALAX 17 GIVEN, BOWELS AUDIBLE TO HYPERACTIVE.
--- NOTE | 2021-04-24 21:10 | NUR ---
INITIAL ASSESSMENT PATIENT ALERT AND ORIENTED X 4, AFEBRILE. PATIENT WITHDRAWN BUT COOPERATIVE. ANXIOUS AT TIMES. PATIENT BEING GIVEN PRN PAIN MEDICATIONS FOR COMPLAINTS OF PAIN IN CHEST, SHOULDERS AND BACK. SLIGHT TREMORS NOTED. PATIENT WEAK BUT ABLE TO MOVE ALL EXTREMITIES AND REPOSITION SELF IN BED. PATIENT ON HOME VENT. SETTINGS SIMV 16, TV 500, PEEP 5 AND 10 L BLEED IN O2. WHEEZES NOTED THROUGHOUT ALL LUNG LOBES. PATIENT SUCTIONING UP SMALL AMOUNTS OF THICK, EMERSON SPUTUM FROM TRACH. PATIENT IN SR, HR IN THE 60S. SBP IN THE 1-TEENS. HYPOACTIVE BS NOTED. PATIENT ON CARDIAC DIET. DATE OF LAST BM UNKNOWN. ZENDEJAS DRAINING YELLOW COLORED URINE. DRESSING TO WOUND ON R HIP. SCAB TO R FA. SCATTERED SCABS NOTED T/O BODY. COCCYX REDDENED BUT BLANCHEABLE. NS TKO. BED LOW, CALL LIGHT IN REACH. WILL CONTINUE TO MONITOR PATIENT FREQUENTLY THROUGHOUT SHIFT.
--- NOTE | 2021-04-25 00:30 | NUR ---
PATIENT AFEBRILE. HR 70S TO 80S. SBP LOW 100S TO 1-TEENS. NO OTHER ACUTE CHANGES TO NOTE ON AT THIS TIME. WILL CONTINUE TO MONITOR.
[2021-04-25 03:32] LABS: BASOPHILS ABSOLUTE AUTO 0.02 K/mm3 (0.00-0.23); BASOPHILS PERCENT AUTO 0 % (0-2); EOSINOPHILS ABSOLUTE AUTO 0.04 K/mm3 (0.00-0.68); EOSINOPHILS PERCENT AUTO 1 % (0-6); Hematocrit 26.4 % (33.0-51.0); IMMATURE GRAN ABSOLUTE AUTO 0.05 K/mm3 (0.00-0.10); IMMATURE GRAN PERCENT AUTO 1 % (0-1); LYMPHOCYTES ABSOLUTE AUTO 0.69 K/mm3 (0.84-5.20); LYMPHOCYTES PERCENT AUTO 8 % (21-46); MONOCYTES ABSOLUTE AUTO 0.35 K/mm3 (0.16-1.47); MONOCYTES PERCENT AUTO 4 % (4-13); Mean Corpuscular HGB 25.4 pg (26.0-34.0); Mean Corpuscular HGB Conc 30.3 g/dL (31.5-36.5); Mean Corpuscular Volume 84 fL (80-100); NEUTROPHILS ABSOLUTE AUTO 7.58 K/mm3 (1.96-9.15); NEUTROPHILS PERCENT AUTO 87 % (41-73); RDW Coefficient Variation 18.7 % (11.7-14.2); Red Blood Cell Count 3.15 M/mm3 (3.80-5.20); White Blood Cell Count 8.73 K/mm3 (4.00-11.30)
[2021-04-25 03:34] LABS: Mean Platelet Volume 11.6 fL (9.1-12.4); Platelet Count 204 K/mm3 (150-400)
[2021-04-25 03:43] LABS: Bun/Creatinine Ratio 26.5 (12.0-20.0); Calcium, Blood 8.8 mg/dL (8.5-10.1); Creatinine, Blood 0.98 mg/dL (0.40-1.00); Potassium, Blood 4.4 mmol/L (3.5-5.5)
--- NOTE | 2021-04-25 03:47 | NUR ---
PATIENT AFEBRILE. HR IN THE 80S. SBP LOW 100S. PATIENT COMPLAINING OF PAIN AND ANXIETY. PATIENT REQUESTING ATIVAN AND DILAUDID. PATIENT INFORMED SHE IS UNABLE TO HAVE DILAUDID AT THIS TIME AND ASKED IF SHE WOULD LIKE NORCO INSTEAD. PATIENT DENIES NORCO. NO OTHER ACUTE CHANGES TO NOTE ON AT THIS TIME. WILL CONTINUE TO MONITOR.
--- NOTE | 2021-04-25 06:38 | NUR ---
SHIFT SUMMARY PATIENT SLEPT ON AND OFF THROUGHOUT SHIFT. PATIENT REMAINED ALERT AND ORIENTED X 4. PATIENT ANXIOUS AT TIMES. PATIENT REQUESTED FREQUENT PAIN AND ANXIETY MEDICATIONS. PATIENT ENCOURAGED MANY TIMES TO TAKE PO MEDICATIONS BUT CONTINUED TO DEMAND THE IV PAIN AND ANXIETY MEDICATIONS. PATIENT STATED THAT SHE TAKES PO NORCO AT HOME BUT THAT THE DOSE DOES NOT WORK FOR HER ANYMORE. PATIENT INFORMED THAT SHE SHOULD BE TRYING PO MEDICATION BEFORE IV AND THAT SHE SHOULD TRY TO GET BACK ON HER HOME REGIMEN. PATIENT NOT RECEPTIVE. PATIENT REMAINED AFEBRILE. PATIENT CONTINUED TO REPOSITION SELF IN BED. PATIENT REMAINED ON SIMV 16, TV 500, PEEP 5 AND 10 L O2 BLEED IN. PATIENT REMAINED IN SR, HR 60S TO 90S. SBP LOW 100S TO 1-TEENS. PATIENT HAS GOOD APPETITE. NO BM THIS SHIFT. ZENDEJAS DRAINED 1300 MLS OF YELLOW COLORED URINE. NO CHANGES NOTED TO SKIN. NS TKO. NO COMPLAINTS AT THIS TIME. BED LOW, CALL LIGHT IN REACH. WILL BE GIVING REPORT TO ONCOMING DAY SHIFT NURSE SHORTLY.
--- NOTE | 2021-04-25 08:00 | NUR ---
PT A&0X4. PT MOUTHING WORDS AND COMMUNICATING NEEDS WELL. PT REPORTS FEELING ANXIOUS. PT REQUESTING THAT ATIVAN DOSE BE INCREASED-WILL DISCUSS WITH HOSPITALIST. PT REPORTS 7/10 "BUTT" PAIN. PT AWARE THAT PAIN MED LAST GIVEN @ 0631 THIS AM. WILL MEDICATE FOR PAIN PRN-SEE EMAR. DISCUSSED WITH PT THAT IT WOULD BE IDEAL TO SWITCH HER OVER TO PO MEDS WE ARE MOVING TOWARDS DISCHARGE. PT REFUSING PO PAIN MEDS AT THIS TIME. TEMP 99.3. ECG SHOWS SR. SBP 100-110'S. LUNGS TIGHT AND WHEEZY THROUGH OUT. TRACH # 6.0-SITE CLEAR. PT HAS A SYRINGE TO THE TRACH CUFF AND SHE INFLATES AND DEFLATES PRN SHE DOES AT HOME. PT ALSO SUCTIONS TRACH PRN. TRACH SUCTION PRODUCTIVE OF MODERATE AMOUNT OF THICK, EMERSON SECRETIONS. PT ON HOME VENT:SIMV 16, TV 500, 10 LITER 02 BLEED IN.NOT GI DISTRESS. PT REPORTS INCREASED APPETITE DUE TO PREDNISONE. ZENDEJAS TO BSD WITH ADEQUATE AMOUNT OF YELLOW URINE TO BSD. PT REPOSITIONING HERSELF IN THE BED PRN. COCCYX WITH FOAM DRESSING C/D/I. RIGHT HIP/BUTTOCK WITH FOAM DRESSING ALSO C/D/I. WOUND CARE CLINIC CHANGING DRESSING Q3 DAYS AND DRESSING IS TO BE CHANGED TODAY. PT SKIN IS FRAIL AND THIN-SCATTERED SCABS NOTED AND PT BRUISES QUITE EASILY.
--- NOTE | 2021-04-25 08:17 | NUR ---
PT REPORTS ANXIETY-MED WITH ATIVAN 1 MG IVP-SEE EMAR. PT REQUESTED ADDITIONAL ORDER OF SCRAMBLED EGGS-TN SENT TO DIETARY.
--- NOTE | 2021-04-25 09:00 | NUR ---
PT APPEARS TO BE SLEEPING. SCRAMBLED EGGS HELD.
--- NOTE | 2021-04-25 10:30 | NUR ---
PT REPORTS 11/15 RIGHT HIP/BUTTOCK PAIN-MED WITH DILAUDID 1 MG IVP X 1-SEE EMAR. WOUND CARE COMPLETED.
--- NOTE | 2021-04-25 11:23 | NUR ---
PT APPEARS TO BE SLEEPING. SATS 100% ON HOME VENT WITH 8 LITER BLEED IN. NO NOTED DISTRESS AT THIS TIME.
--- NOTE | 2021-04-25 14:30 | NUR ---
PT REPORTS BOTH ANXIETY AND PAIN. PT STATES"I CAN'T BREATHE." SATS>90% ON H OME VENT WITH 8 LITER BLEED IN OF 02. PT MED WITH DILAUDID 1 MG IVP X 1-SEE EMAR. LUNGS REMAIN TIGHT AND WHEEZY THROUGH OUT. TRACH SUCTION PRODUCTIVE OF A MODERATE AMOUNT OF THICK, EMERSON SECRETIONS. ORAL CARE AND CATH CARE COMPLETED-PT CONTINUES TO REFUSE BED BATH.
--- NOTE | 2021-04-25 15:30 | NUR ---
PT APPEARS TO BE SLEEPING. NO NOTED DISTRESS AT THIS TIME
--- NOTE | 2021-04-25 16:25 | NUR ---
PT SUMMONED RN TO BEDSIDE AND ASKED "AM I EVER GOING TO GO HOME?" EXPLAINED TO PT THAT SHE IS IMPROVING, BUT THAT WE NEED TO TRANSITION HER FROM IV MEDS FOR BOTH PAIN AND ANXIETY TO PO MEDS AND HER HOME MEDICATION REGIME. PT SHOOK HER HEAD "NO" AND DEMANDED "PEPSI AND ATIVAN." REQUEST GRANTED. NO ACUTE RESPIRATORY DISTRESS NOTED AT THIS TIME. MAINTAINS SATS>90% ON 8 LITERS BLEED IN.
--- NOTE | 2021-04-25 18:07 | NUR ---
PT ATE 100% OF DINNER TRAY, THEN POSITIONED HERSELF TO THE LEFT SIDE AND APPEARS TO BE SLEEPING.
--- NOTE | 2021-04-25 18:36 | NUR ---
REPORTS 7/10 PAIN TO HER "BUTT." MED WITH DILAUDID 1 MG IVP. PT REQUESTS TO HAVE HER PM MEDS RANDY SO THAT SHE CAN GO TO SLEEP FOR THE NIGHT. WILL REPORT THIS REQUEST TO ONCOMING SHIFT.
[2021-04-25 20:51] LABS: Vancomycin, Trough 20.6 ug/mL (5.0-10.0)
[2021-04-26 03:59] LABS: BASOPHILS ABSOLUTE AUTO 0.02 K/mm3 (0.00-0.23); BASOPHILS PERCENT AUTO 0 % (0-2); EOSINOPHILS ABSOLUTE AUTO 0.06 K/mm3 (0.00-0.68); EOSINOPHILS PERCENT AUTO 1 % (0-6); Hematocrit 29.5 % (33.0-51.0); Hemoglobin 8.4 g/dL (11.5-16.0); IMMATURE GRAN ABSOLUTE AUTO 0.03 K/mm3 (0.00-0.10); IMMATURE GRAN PERCENT AUTO 0 % (0-1); LYMPHOCYTES ABSOLUTE AUTO 0.76 K/mm3 (0.84-5.20); LYMPHOCYTES PERCENT AUTO 11 % (21-46); MONOCYTES ABSOLUTE AUTO 0.26 K/mm3 (0.16-1.47); MONOCYTES PERCENT AUTO 4 % (4-13); Mean Corpuscular HGB 24.5 pg (26.0-34.0); Mean Corpuscular HGB Conc 28.5 g/dL (31.5-36.5); Mean Corpuscular Volume 86 fL (80-100); Mean Platelet Volume 12.6 fL (9.1-12.4); NEUTROPHILS PERCENT AUTO 84 % (41-73); Platelet Count 304 K/mm3 (150-400); RDW Coefficient Variation 18.8 % (11.7-14.2); RDW Standard Deviation 59.1 fL (35.1-46.3); Red Blood Cell Count 3.43 M/mm3 (3.80-5.20); White Blood Cell Count 7.23 K/mm3 (4.00-11.30)
--- NOTE | 2021-04-26 06:24 | NUR ---
END OF SHIFT SUMMARY: NO ACUTE CHANGES OVERNIGHT. SHE REQUESTED MEDS EARLY ON IN SHIFT AND SHE HAS SLEPT MOST OF THE NIGHT. DILAUDID GIVEN X2. NORCO X1. URINE OUTPUT 2200. NO CHNAGES WITH HOME VENT
--- NOTE | 2021-04-26 08:00 | NUR ---
PT A&0X4. APPEARS ANXIOUS. PT DEMANDING MED FOR BOTH PAIN AND ANXIETY. PT REPORTS 7/10 PAIN TO HER "BUTT." MED WITH DILAUDID 1 MG IVP-SEE EMAR. PT REPORTS "SEVERE" ANXIETY-MED WITH ATIVAN 2 MG IVP X 1. ECG CONTINUES SR AND BP STABLE. LUNGS COARSE AND TIGHT TO UPPER LUNG FIELD AND DIMINISHED IN THE BASES. SATS>90% ON HOME VENT WITH 8 LITER BLEED IN OF 02. PT SUCTIONS HERSELF PRN AND ALSO REQUESTS THAT STAFF SUCTION HER AT TIMES. TRACH SUCTION PRODUCTIVE OF MODERATE AMOUNT OF THICK, EMERSON SECRETIONS. PT HAS 10 CC SYRINGE TO TRACH CUFF AND SHE INFLATES AND DEFLATES NEEDED. PT APPETITE CONTINUES TO BE INCREASED-SHE STATES DUE TO PREDNISONE. NO BM. ZENDEJAS TO BSD WITH ADEQUATE AMOUNT OF YELLOW URINE TO BSD. MEPILEX DRESSING TO RIGHT FOREARM, RIGHT HIP/BUTTOCK, AND COCCYX ARE C/D/I-DRESSING CHANGED ON 04/25/21. PT REPOSITIONS HERSELF IN THE BED. PT ALLOWED FOR AM CARE, EXCEPT FOR ORAL CARE AND BATHING. PT REQUESTS TO "GET CLEANED UP LATER." WILL OFFER BATHING LATER THIS AM AFTER BREAKFAST.
--- NOTE | 2021-04-26 08:24 | NUR ---
DR. CARRILLO HERE TO SEE PT. UPDATED TO CURRENT VS AND STATUS. MD TO ORDER PT/OT AND BEGIN DISCHARGE PLANNING.
--- NOTE | 2021-04-26 11:45 | NUR ---
PT HAS BEEN RESTING INTERMITTENTLY WHEN NOT DISTURBED. PT AWAKENS AND REPORTS 7/10 PAIN TO HER "BUTT" MED WITH DILAUDID 1 MG IVP-SEE EMAR. PT STATES "I AM ANXIOUS AND CRANKY." MED WITH ATIVAN 2 MG IVP X 1-SEE EMAR. TEMP 99.7. SBP TRENDING 90'S. LUNGS WITH SCATTERED WHEEZES AND STILL TIGHT THROUGH OUT. SATS>90% ON HOME VENT WITH 8 LITER 02 BLEED IN.
--- NOTE | 2021-04-26 13:15 | NUR ---
PT SUMMONED RN TO ROOM AND ASKED "WHEN ARE MY PAIN MEDS DUE?" RN REMINDED PT THAT HER NEXT DOSE IS ALLOWED AT 1545. PT REPORTS THAT HER RIGHT HIP/BUTTOCK "CHRISTY." PT REPOSITIONED HERSELF IN BED. PT HAS REFUSED BATH AND LINEN CHANGE, BUT REQUESTS BATH AROUNG 1500 PRIOR TO HER NEXT DOSE OF PAIN MEDICATION THAT WAY SHE CAN "REST" AFTERWARD. AJ JAMES TO OFFER BEDBATH AND LINEN CHANGE AGAIN AT 1500.
--- NOTE | 2021-04-26 14:30 | NUR ---
PHYSICAL THERAPY ATTEMPTED TO EVALUATED PT.PT BECAME VERY ANXIOUS AND REPORTED SOB. PT STATES "I CAN'T BREATHE!" RR 40-50'S AND HR 140'S. DR. FENG CONTACTED AND PT GIVEN A ONE TIME ADDITIONAL DOSE OF ATIVAN 2 MG IVP. PT REMINDED THAT THE PLAN IS TO DISCHARGE TO HOME TOMORROW OR TUESDAY. PT MADE AWARE OF THE IMPORTANCE OF HAVING HER ON HER PO/HOME REGIME FOR BOTH PAIN AND ANXIETY. PT MED WITH ATARAX-SEE EMAR.
--- NOTE | 2021-04-26 15:07 | NUR ---
PT CONTINUES TO REPORT 9/10 RIGHT HIP/BUTTOCK PAIN. PT APPEARS ANXIOUS HR 120'S AND RR 40'S. PT MAINTAINS SATS>90% ON HER HOME VENT. MED WITH NORCO PO FOR PAIN-SEE EMAR.
--- NOTE | 2021-04-26 15:45 | NUR ---
PT CONTINUES TO APPEAR ANXIOUS AND REPORTS 9/10 RIGHT HIP/BUTTOCK PAIN-MED WITH DILAUDID 1 MG IVP X 1. PT REFUSING BATH AND LINEN CHANGE. MAINTAINING SATS>90% ON HOME VENT.
--- NOTE | 2021-04-26 18:00 | NUR ---
PT REPORTS FEELING SOB AND ANXIOUS. TRACH SUCTIONED AND PRODUCTIVE OF A LARGE AMOUNT OF THICK, EMERSON SECRETIONS. PT REQUESTS A BREATHING TREATMENT-RT NOTIFIED. PT MED WITH ATIVAN 2 MG IVP FOR ANXIETY. PT ASKING FOR "PAIN MEDS." PT REMINDED FREQUENTLY THAT PAIN MEDS ARE ALLOWED EVERY 4 HOURS AND THAT THE NEXT DOSE ISN'T AVAILABLE UNTIL 1944. PT ALSO REQUESTING THAT NEBS BE GIVEN EVERY 2 HOURS THROUGH THE NIGHT AND THAT SHE HAVE HER PM MEDS RANDY. WILL REPORT TO ONCOMING SHIFT.
[2021-04-27 03:27] LABS: BASOPHILS ABSOLUTE AUTO 0.03 K/mm3 (0.00-0.23); BASOPHILS PERCENT AUTO 0 % (0-2); EOSINOPHILS ABSOLUTE AUTO 0.12 K/mm3 (0.00-0.68); EOSINOPHILS PERCENT AUTO 2 % (0-6); Hematocrit 29.4 % (33.0-51.0); Hemoglobin 8.5 g/dL (11.5-16.0); IMMATURE GRAN ABSOLUTE AUTO 0.03 K/mm3 (0.00-0.10); IMMATURE GRAN PERCENT AUTO 0 % (0-1); LYMPHOCYTES ABSOLUTE AUTO 1.06 K/mm3 (0.84-5.20); LYMPHOCYTES PERCENT AUTO 16 % (21-46); MONOCYTES ABSOLUTE AUTO 0.31 K/mm3 (0.16-1.47); MONOCYTES PERCENT AUTO 5 % (4-13); Mean Corpuscular HGB 25.1 pg (26.0-34.0); Mean Corpuscular HGB Conc 28.9 g/dL (31.5-36.5); Mean Corpuscular Volume 87 fL (80-100); Mean Platelet Volume 12.1 fL (9.1-12.4); NEUTROPHILS ABSOLUTE AUTO 5.27 K/mm3 (1.96-9.15); NEUTROPHILS PERCENT AUTO 77 % (41-73); Platelet Count 302 K/mm3 (150-400); RDW Coefficient Variation 19.1 % (11.7-14.2); RDW Standard Deviation 59.7 fL (35.1-46.3); Red Blood Cell Count 3.39 M/mm3 (3.80-5.20); White Blood Cell Count 6.82 K/mm3 (4.00-11.30)
[2021-04-27 04:11] LABS: Anion Gap 2 mmol/L (6-16); Blood Urea Nitrogen 24 mg/dL (8-24); Bun/Creatinine Ratio 27.9 (12.0-20.0); CO2, Blood 38 mmol/L (21-32); Calcium, Blood 8.9 mg/dL (8.5-10.1); Chloride, Blood 104 mmol/L (98-108); Creatinine, Blood 0.86 mg/dL (0.40-1.00); Glomerular Filtration Rate >60 (60-); Glucose, Blood 85 mg/dL (70-99); Potassium, Blood 4.7 mmol/L (3.5-5.5); Sodium, Blood 144 mmol/L (136-145)
--- NOTE | 2021-04-27 04:35 | NUR ---
SHIFT SUMMARY: PT RESTED MOST OF SHIFT WITHOUT COMPLAINT, AWAKENS BRIEFLY AND ASKS FOR "PAIM SHOT" OR ATIVAN IF ITS TOO EARLY FOR PAIN MED. VSS, SR, O2 SATS >95% VIA HOME VENT, ABLE TO USE CALL LIGHT AND COMMUNICATE NEEDS. BED LOCKED AND LOW, CALL LUJAN IN REACH. PIERCE RAZA
--- NOTE | 2021-04-27 10:01 | NUR ---
ASSUMED CARE OF PATIENT: AOX4, COMPLAINS OF PAIN/ANXIETY, VSS, R TUNNELED WOUND MARILYN ON ASSESSMENT, CLEANED/DRESSED PER WOUND CARE ORDER, PT GIVEN 1 TAB NORCO FOR PAIN.
[2021-04-27] MEDS ORDERED: VISBIOME 112.51 EACH PO (16:44)
[2021-04-27] MEDS ORDERED: TOBRAMYCIN300 MG/10 INH (16:44)
[2021-04-27] MEDS ORDERED: MULVITA PO (16:45)
--- NOTE | 2021-04-27 17:36 | NUR ---
AOX4, ANXIOUS, 2MG ATIVAN X1 GIVEN, COMPLAINS OF PAIN BACK /10, GIVEN 1 NORCO, 1MG DILAUDID X2 GIVEN, DENIES N/V, PUPILS 3MM BRISK, NSR 80S, ST 110S WITH ANXIETY, +2 PULSES, BP WNL, LUNGS COARSE/DIM, MODERATE THICK SECRETIONS, COMPLAINS OF SOB AT TIMES DESPITE SATS WNL, 6-10L BLEED HOME VENT, UOP ADEQUATE ZENDEJAS, AUDIBLE NON TENDER BOWELS, PT ADEQUATE FOR DISCHARGE, HOME HEALTH SET UP, PT EDUCATED ON NEW MEDICATIONS AND USES, PT VERBALIZED IF EXPERIENCES SYMTPOMS OF EXCESSIVE SOB/CHEST PAIN/PERSISTANT N/V TO CALL 911, VSS, PORT/LINES/ZENDEJAS REMOVED, PT TRANSFERED HOME WITH [facility] BY WHEELCHAIR.
== END 2021-04-27 17:48 | disposition home health service (06) | DRG 870 ==
LOC: ER 04:10 → ICUW 06:30
PROVIDERS: Family Medicine; Internal Medicine Critical Care Medicine; Pharmacist; Student in an Organized Health Care Education/Training Program; ADMIT Family Medicine
PROC: 30233N1 Transfusion of Nonautologous Red Blood Cells into Peripheral Vein, Percutaneous Approach (ICD-10-PCS; principal; 2021-04-21)
PROC: 3E033XZ Introduction of Vasopressor into Peripheral Vein, Percutaneous Approach (ICD-10-PCS; 2021-04-21)
PROC: 5A1955Z Respiratory Ventilation, Greater than 96 Consecutive Hours (ICD-10-PCS; 2021-04-21)
DX: A41.02 Sepsis due to Methicillin resistant Staphylococcus aureus (principal); J96.21 Acute and chronic respiratory failure with hypoxia; Z99.11 Dependence on respirator [ventilator] status; N17.9 Acute kidney failure, unspecified; E27.40 Unspecified adrenocortical insufficiency; A41.52 Sepsis due to Pseudomonas; F41.8 Other specified anxiety disorders; D63.8 Anemia in other chronic diseases classified elsewhere; I10 Essential (primary) hypertension; J43.9 Emphysema, unspecified; R65.20 Severe sepsis without septic shock; N18.30 Chronic kidney disease, stage 3 unspecified; D63.1 Anemia in chronic kidney disease; Z20.822 Contact with and (suspected) exposure to COVID-19; G89.29 Other chronic pain; Z71.6 Tobacco abuse counseling; Z90.710 Acquired absence of both cervix and uterus; Z90.89 Acquired absence of other organs; Z93.0 Tracheostomy status; Z79.52 Long term (current) use of systemic steroids; Z79.899 Other long term (current) drug therapy
CPT/HCPCS: 0241U; 31720; 36415; 36416; 36430; 51702; 71045; 80048; 80053; 80202; 82803; 83605; 84484; 85014; 85018; 85025; 86850; 86900; 86901; 86923; 87040; 87070; 87077; 87186; 87205; 93005; 93010; 94003; 94640; 94644; 96365; 96367; 96375; 97110; 97162; 97530; 99285-25; A9270; J0692; J1170; J1650; J1885; J2060; J2270; J2930; J3370; J7050; J7060; J7120; J7512; P9016

== ENCOUNTER 2021-04-27 18:57 | Observation (INO) | payer OTHER ==
[~2021-04-27] VITALS: Ht 165.1 cm; Wt 51.3 kg
[~2021-04-27 18:57] MED LIST changes: +MULVITA PO; +TOBRAMYCIN300 MG/10 INH; +VISBIOME 112.51 EACH PO
[2021-04-27 19:19] LABS: PCO2 Arterial 71.2 mmHg (35-45); PO2 Arterial 88.5 mmHg (80-100); pH Blood Arterial 7.36 (7.35-7.45)
[2021-04-27 22:53] LABS: Hematocrit 28.3 % (33.0-51.0); Hemoglobin 8.9 g/dL (11.5-16.0); Mean Corpuscular HGB 26.8 pg (26.0-34.0); Mean Corpuscular HGB Conc 31.4 g/dL (31.5-36.5); Mean Corpuscular Volume 85 fL (80-100); Mean Platelet Volume 11.9 fL (9.1-12.4); NRBC ABSOLUTE 1.16 K/mm3 (0.00-0.02); NRBC Auto 6.5 /100 WBC (0.0-0.2); Platelet Count 269 K/mm3 (150-400); RDW Coefficient Variation 19.6 % (11.7-14.2); RDW Standard Deviation 60.4 fL (35.1-46.3); Red Blood Cell Count 3.32 M/mm3 (3.80-5.20); White Blood Cell Count 17.84 K/mm3 (4.00-11.30)
[2021-04-27 23:16] LABS: Albumin, Blood 1.9 g/dL (3.4-5.0); Anion Gap 5 mmol/L (6-16); Blood Urea Nitrogen 27 mg/dL (8-24); Bun/Creatinine Ratio 33.7 (12.0-20.0); CO2, Blood 33 mmol/L (21-32); Calcium, Blood 8.8 mg/dL (8.5-10.1); Chloride, Blood 99 mmol/L (98-108); Glomerular Filtration Rate >60 (60-); Glucose, Blood 100 mg/dL (70-99); Phosphorus, Blood 2.9 mg/dL (2.5-4.9); Potassium, Blood 5.3 mmol/L (3.5-5.5); Sodium, Blood 137 mmol/L (136-145)
[2021-04-27 23:32] LABS: BAND PERCENT MAN 6 % (0-8); BASOPHILS PERCENT MAN 0 % (0-2); EOSINOPHILS PERCENT MAN 1 % (0-6); LYMPHOCYTES PERCENT MAN 12 % (21-46); METAMYELOCYTE PERCENT MAN 2 % (0-0); MONOCYTES PERCENT MAN 2 % (4-13); MYELOCYTE PERCENT MAN 1 % (0-0); SEG NEUTROPHILS PERCENT MAN 76 % (41-73); TOTAL CELLS COUNTED 100
[2021-04-27 23:36] LABS: IMMATURE GRAN ABSOLUTE AUTO 1.95 K/mm3 (0.00-0.10); IMMATURE GRAN PERCENT AUTO 11 % (0-1); LYMPHOCYTES ABSOLUTE AUTO 1.66 K/mm3 (0.84-5.20); LYMPHOCYTES PERCENT AUTO 9 % (21-46); MONOCYTES ABSOLUTE AUTO 0.53 K/mm3 (0.16-1.47); MONOCYTES PERCENT AUTO 3 % (4-13); NEUTROPHILS ABSOLUTE AUTO 13.27 K/mm3 (1.96-9.15); NEUTROPHILS PERCENT AUTO 74 % (41-73)
[2021-04-28 05:52] LABS: BASOPHILS ABSOLUTE AUTO 0.03 K/mm3 (0.00-0.23); BASOPHILS PERCENT AUTO 0 % (0-2); EOSINOPHILS ABSOLUTE AUTO 0.13 K/mm3 (0.00-0.68); EOSINOPHILS PERCENT AUTO 1 % (0-6); Hematocrit 30.1 % (33.0-51.0); Hemoglobin 8.9 g/dL (11.5-16.0); IMMATURE GRAN ABSOLUTE AUTO 0.05 K/mm3 (0.00-0.10); IMMATURE GRAN PERCENT AUTO 1 % (0-1); LYMPHOCYTES PERCENT AUTO 16 % (21-46); MONOCYTES ABSOLUTE AUTO 0.45 K/mm3 (0.16-1.47); MONOCYTES PERCENT AUTO 5 % (4-13); Mean Corpuscular HGB 25.1 pg (26.0-34.0); Mean Corpuscular HGB Conc 29.6 g/dL (31.5-36.5); Mean Corpuscular Volume 85 fL (80-100); Mean Platelet Volume 12.7 fL (9.1-12.4); NEUTROPHILS ABSOLUTE AUTO 7.04 K/mm3 (1.96-9.15); NEUTROPHILS PERCENT AUTO 77 % (41-73); Platelet Count 311 K/mm3 (150-400); RDW Coefficient Variation 19.5 % (11.7-14.2); RDW Standard Deviation 59.8 fL (35.1-46.3); Red Blood Cell Count 3.55 M/mm3 (3.80-5.20)
[2021-04-28 06:37] LABS: Alanine Aminotransfer (ALT/SGP 30 U/L (12-78); Albumin, Blood 2.1 g/dL (3.4-5.0); Albumin/Globulin Ratio 0.6 (0.8-1.8); Alk Phos 91 U/L (50-136); Anion Gap 6 mmol/L (6-16); Aspartate Aminotrans (AST/SGOT 19 U/L (12-37); Bilirubin, Total 0.3 mg/dL (0.1-1.0); Blood Urea Nitrogen 25 mg/dL (8-24); Bun/Creatinine Ratio 30.8 (12.0-20.0); CO2, Blood 35 mmol/L (21-32); Calcium, Blood 9.2 mg/dL (8.5-10.1); Chloride, Blood 99 mmol/L (98-108); Creatinine, Blood 0.81 mg/dL (0.40-1.00); Globulin, Blood 3.8 g/dL (2.2-4.0); Glomerular Filtration Rate >60 (60-); Glucose, Blood 81 mg/dL (70-99); Potassium, Blood 4.2 mmol/L (3.5-5.5); Sodium, Blood 140 mmol/L (136-145); Total Protein, Blood 5.9 g/dL (6.4-8.2)
--- NOTE | 2021-04-29 05:48 | NUR ---
SHIFT SUMMARY PT RESTED SOME THROUGH THE NIGHT. VERY ANXIOUS AND RESTLESS. ATIVAN X2, PAIN MEDS X3. TELE NSR/SINUS TACH. ON HOME VENT. BAGGED X5 PER PATIENT REQUEST. MULTIPLE BREATING TX GIVEN. LUNG SOUNDS TIGHT AND DIMINISHED. SUCTIONED X5. ONCE PATIENT ABLE TO RELAX, HER BREATHING IMPROVED AND SATS MAINTAINED >94%. NO CP. TURNS INDEPENDETLY IN BED. VSS, BUT BP LOW AT TIMES. CALL LIGHT WITHIN REACH, BED IN LOWEST POSITION. WILL CONTINUE TO MONITOR.
--- NOTE | 2021-04-29 11:00 | NUR ---
AM SUMMARY: PATIENT STATES SHE DOES NOT WANT TO BE HERE AND THAT WE "CAN'T KEEP HER HERE." DR. WILSON SPOKE WITH THE PATIENT. DURING MED PASS THE PATIENT STATED SHE WAS GOING TO "SLEEP FOR AWHILE AND THEN START WORK ON GETTING HOME." PATIENT IS CURRENTLY WORKING WITH OT.
--- NOTE | 2021-04-29 15:08 | NUR ---
PATIENT INFORMED THIS RN HER RIDE WILL BE HERE IN AN HOUR AND SHE'S LEAVING. CALLED DR. FENG WITH NO ANSWER. WILL CALL AGAIN.
--- NOTE | 2021-04-29 17:18 | NUR ---
SHIFT SUMMARY: PATIENT DISCHARGED AT 1700 IN BASELINE CONDITION. TRANSPORTERS HAD OXYGEN ON RROSIE SET TO 5L PER RT SETTINGS. PATIENT STATED SHE "DOESN'T LIKE COMING HERE B/C EVERYONE TALKS TO HER ABOUT DYING AND COMFORT CARE BUT WON'T MEDICATE HER PAIN" AND SHE "DOESN'T FEEL LIKE [SHE'S] GOING TO ANYTIME SOON." THIS RN WENT THROUGH THE DISCHARGE PACKET AND REMINDED HER HOME HEALTH WAS ORDERED PREVIOUSLY. PATIENT LEFT BY TRANSPORT ON GURNEY.
== END 2021-04-29 17:23 | disposition home or self-care (01) ==
LOC: ER 18:57 → ERHOLD 18:58 → PCU 04-28 18:51
PROVIDERS: Emergency Medicine; Family Medicine; ADMIT Internal Medicine
DX: J96.21 Acute and chronic respiratory failure with hypoxia (principal); R65.20 Severe sepsis without septic shock; J43.9 Emphysema, unspecified; R00.0 Tachycardia, unspecified; D63.8 Anemia in other chronic diseases classified elsewhere; F32.A Depression, unspecified; F41.3 Other mixed anxiety disorders; G89.29 Other chronic pain; I07.1 Rheumatic tricuspid insufficiency; Z93.0 Tracheostomy status; Z99.11 Dependence on respirator [ventilator] status; Z72.0 Tobacco use
CPT/HCPCS: 31720; 36415; 36600; 71045; 80053; 80069; 82803; 83735; 85025; 93005; 93010; 93306; 94640; 94644; 94762; 96365; 96374; 96375; 96376; 99285-25; A9270; G0378; J1170; J1650; J1885; J3010; J7512

== ENCOUNTER 2021-05-09 06:01 | Emergency (ER) | payer OTHER ==
[~2021-05-09] VITALS: Ht 154.9 cm; Wt 59.0 kg
[2021-05-09] MEDS ORDERED: DOXY100 PO (08:37)
== END 2021-05-09 15:40 | disposition home or self-care (01) ==
LOC: ER 06:01
DX: J95.03 Malfunction of tracheostomy stoma (principal); J40 Bronchitis, not specified as acute or chronic; Z79.899 Other long term (current) drug therapy; Z79.52 Long term (current) use of systemic steroids; J43.9 Emphysema, unspecified; F17.200 Nicotine dependence, unspecified, uncomplicated
CPT/HCPCS: 31502; 31720; 71045; 94002; 99285-25; A9270

== ENCOUNTER 2021-05-22 01:31 | Emergency (ER) | payer OTHER ==
[~2021-05-22] VITALS: Ht 160 cm; Wt 54.4 kg
== END 2021-05-22 05:08 | disposition home or self-care (01) ==
LOC: ER 01:31
DX: S05.41XA Penetrating wound of orbit with or without foreign body, right eye, initial encounter (principal); S61.512A Laceration without foreign body of left wrist, initial encounter; J43.9 Emphysema, unspecified; M81.0 Age-related osteoporosis without current pathological fracture; D64.9 Anemia, unspecified; Z87.442 Personal history of urinary calculi; Z86.711 Personal history of pulmonary embolism; F17.200 Nicotine dependence, unspecified, uncomplicated; Z79.899 Other long term (current) drug therapy; Z79.52 Long term (current) use of systemic steroids; W06.XXXA Fall from bed, initial encounter
CPT/HCPCS: 12013; 70450; 70486; 71045; 94644; 99284-25

== ENCOUNTER 2021-06-18 20:46 | Emergency (ER) | payer OTHER ==
[~2021-06-18] VITALS: Ht 157.5 cm; Wt 52.2 kg
[2021-06-18 22:58] LABS: BASOPHILS ABSOLUTE AUTO 0.08 K/mm3 (0.00-0.23); BASOPHILS PERCENT AUTO 1 % (0-2); EOSINOPHILS ABSOLUTE AUTO 0.31 K/mm3 (0.00-0.68); EOSINOPHILS PERCENT AUTO 3 % (0-6); Hematocrit 36.2 % (33.0-51.0); Hemoglobin 10.1 g/dL (11.5-16.0); IMMATURE GRAN ABSOLUTE AUTO 0.02 K/mm3 (0.00-0.10); IMMATURE GRAN PERCENT AUTO 0 % (0-1); LYMPHOCYTES ABSOLUTE AUTO 1.43 K/mm3 (0.84-5.20); LYMPHOCYTES PERCENT AUTO 15 % (21-46); MONOCYTES ABSOLUTE AUTO 0.48 K/mm3 (0.16-1.47); MONOCYTES PERCENT AUTO 5 % (4-13); Mean Corpuscular HGB 23.6 pg (26.0-34.0); Mean Corpuscular HGB Conc 27.9 g/dL (31.5-36.5); Mean Corpuscular Volume 85 fL (80-100); NEUTROPHILS ABSOLUTE AUTO 7.24 K/mm3 (1.96-9.15); NEUTROPHILS PERCENT AUTO 76 % (41-73); Platelet Count 227 K/mm3 (150-400); RDW Coefficient Variation 18.4 % (11.7-14.2); RDW Standard Deviation 56.5 fL (35.1-46.3); Red Blood Cell Count 4.28 M/mm3 (3.80-5.20); White Blood Cell Count 9.56 K/mm3 (4.00-11.30)
[2021-06-18 23:06] LABS: Bun/Creatinine Ratio 11.1 (12.0-20.0); Calcium, Blood 9.5 mg/dL (8.5-10.1); Creatinine, Blood 1.26 mg/dL (0.40-1.00)
== END 2021-06-19 01:48 | disposition home or self-care (01) ==
LOC: ER 20:46
PROVIDERS: Student in an Organized Health Care Education/Training Program
DX: J95.03 Malfunction of tracheostomy stoma (principal); F41.9 Anxiety disorder, unspecified; J44.9 Chronic obstructive pulmonary disease, unspecified; F17.200 Nicotine dependence, unspecified, uncomplicated; D63.8 Anemia in other chronic diseases classified elsewhere; Z79.899 Other long term (current) drug therapy; Z79.52 Long term (current) use of systemic steroids; Z20.822 Contact with and (suspected) exposure to COVID-19
CPT/HCPCS: 71045; 80048; 84484; 85025; 85379; 93005; 93010; 94644; 94645; 96365; 96375; 99285-25; J1100; J2060; J3475

== ENCOUNTER 2021-06-19 09:21 | Emergency (ER) | payer OTHER ==
[~2021-06-19] VITALS: Ht 165.1 cm; Wt 59.0 kg
[2021-06-19 10:23] LABS: Anion Gap 6 mmol/L (6-16); Blood Urea Nitrogen 20 mg/dL (8-24); Bun/Creatinine Ratio 22.2 (12.0-20.0); CO2, Blood 28 mmol/L (21-32); Calcium, Blood 9.5 mg/dL (8.5-10.1); Chloride, Blood 107 mmol/L (98-108); Glomerular Filtration Rate >60 (60-); Glucose, Blood 144 mg/dL (70-99); Potassium, Blood 4.6 mmol/L (3.5-5.5); Sodium, Blood 141 mmol/L (136-145)
[2021-06-19 10:46] LABS: Influenza A, PCR NEGATIVE (NEGATIVE); Influenza B, PCR NEGATIVE (NEGATIVE); Resp Syncytial Virus, PCR NEGATIVE (NEGATIVE); SARS-Cov-2 (COVID-19) PCR, MMC NEGATIVE (NEGATIVE)
[2021-06-19 13:00] LABS: Calcium, Ionized (POC) 1.14 mmol/L (1.10-1.46); Chloride (POC) 109 mmol/L (98-108); Creatinine (POC) 0.7 mg/dL (0.6-1.0); Glucose (ISTAT POC) 142 mg/dL (70-99); Hemoglobin (POC) 9.2 g/dL (12.0-16.0); Potassium (POC) 3.8 mmol/L (3.5-5.5); Sodium (POC) 144 mmol/L (135-148); Total CO2 (POC) 24 mmol/L (21-32)
[2021-06-19 13:45] LABS: PCO2 Arterial 49.1 mmHg (35-45); PO2 Arterial 65.1 mmHg (80-100)
== END 2021-06-19 16:07 | disposition home or self-care (01) ==
LOC: ER 09:21
PROVIDERS: Emergency Medicine
DX: J95.03 Malfunction of tracheostomy stoma (principal); F41.9 Anxiety disorder, unspecified; F17.200 Nicotine dependence, unspecified, uncomplicated; J44.9 Chronic obstructive pulmonary disease, unspecified; Z79.899 Other long term (current) drug therapy; Z79.52 Long term (current) use of systemic steroids; Z20.822 Contact with and (suspected) exposure to COVID-19; Z86.711 Personal history of pulmonary embolism
CPT/HCPCS: 0241U; 36600; 80047; 80048; 82803; 85014; 93005; 93010; 96374; 99285-25; A9270; J2060

== ENCOUNTER 2021-07-07 11:55 | Emergency (ER) | payer OTHER ==
[~2021-07-07] VITALS: Ht 165.1 cm; Wt 59.0 kg
== END 2021-07-07 14:23 | disposition home or self-care (01) ==
LOC: ER 11:55
DX: J95.03 Malfunction of tracheostomy stoma (principal); Z79.899 Other long term (current) drug therapy; Z79.52 Long term (current) use of systemic steroids; J43.9 Emphysema, unspecified; F17.200 Nicotine dependence, unspecified, uncomplicated
CPT/HCPCS: 99283-25

== ENCOUNTER 2021-08-05 04:45 | Emergency (ER) | payer OTHER ==
[~2021-08-05] VITALS: Ht 152.4 cm; Wt 54.4 kg
[2021-08-05] MEDS ORDERED: LEVO750 PO (06:15)
[2021-08-05] MEDS ORDERED: SULTRIDS PO (06:15)
== END 2021-08-05 10:05 | disposition home or self-care (01) ==
LOC: ER 04:45
DX: Z43.0 Encounter for attention to tracheostomy (principal); R06.02 Shortness of breath; R91.8 Other nonspecific abnormal finding of lung field; J43.9 Emphysema, unspecified; F17.200 Nicotine dependence, unspecified, uncomplicated; Z86.711 Personal history of pulmonary embolism; Z87.442 Personal history of urinary calculi; Z79.899 Other long term (current) drug therapy
CPT/HCPCS: 31720; 71045; 94640; 94664; 99284-25; A9270

== ENCOUNTER 2021-09-30 07:15 | Emergency (ER) | payer OTHER ==
[~2021-09-30] VITALS: Ht 165.1 cm; Wt 59.0 kg
[2021-09-30] MEDS ORDERED: Ativan1 MG PO (09:09)
[2021-09-30] MEDS ORDERED: IMITREX50 M2 PO (09:09)
[2021-09-30] MEDS ORDERED: HYDROCODONE-AC1 EAC7 PO (09:10)
[2021-09-30] MEDS ORDERED: AZIT250 PO (09:10)
[2021-09-30] MEDS ORDERED: Prednisone10 MG PO (09:12)
== END 2021-09-30 11:25 | disposition home or self-care (01) ==
LOC: ER 07:15
DX: T85.638A Leakage of other specified internal prosthetic devices, implants and grafts, initial encounter (principal); Y82.8 Other medical devices associated with adverse incidents; J43.9 Emphysema, unspecified; F17.210 Nicotine dependence, cigarettes, uncomplicated; Z79.899 Other long term (current) drug therapy; Z99.81 Dependence on supplemental oxygen; Z86.711 Personal history of pulmonary embolism
CPT/HCPCS: 31502; 71045; 94644; 94664; 99284-25; J2060; J2930

== ENCOUNTER 2021-10-02 15:24 | Emergency (ER) | payer OTHER ==
[~2021-10-02] VITALS: Ht 165.1 cm; Wt 56.7 kg
[~2021-10-02 15:24] MED LIST changes: +IMITREX50 M2 PO
[2021-10-02 16:11] LABS: BASOPHILS ABSOLUTE AUTO 0.09 K/mm3 (0.00-0.23); BASOPHILS PERCENT AUTO 1 % (0-2); EOSINOPHILS ABSOLUTE AUTO 0.34 K/mm3 (0.00-0.68); EOSINOPHILS PERCENT AUTO 3 % (0-6); Hematocrit 34.1 % (33.0-51.0); Hemoglobin 9.6 g/dL (11.5-16.0); IMMATURE GRAN ABSOLUTE AUTO 0.02 K/mm3 (0.00-0.10); IMMATURE GRAN PERCENT AUTO 0 % (0-1); LYMPHOCYTES PERCENT AUTO 11 % (21-46); MONOCYTES PERCENT AUTO 6 % (4-13); Mean Corpuscular HGB Conc 28.2 g/dL (31.5-36.5); Mean Corpuscular Volume 78 fL (80-100); NEUTROPHILS PERCENT AUTO 80 % (41-73); Platelet Count 207 K/mm3 (150-400); RDW Coefficient Variation 18.6 % (11.7-14.2); RDW Standard Deviation 51.3 fL (35.1-46.3); Red Blood Cell Count 4.37 M/mm3 (3.80-5.20); White Blood Cell Count 12.15 K/mm3 (4.00-11.30)
[2021-10-02 16:23] LABS: Albumin, Blood 3.2 g/dL (3.4-5.0); Albumin/Globulin Ratio 0.7 (0.8-1.8); Bilirubin, Total 0.2 mg/dL (0.1-1.0); Bun/Creatinine Ratio 18.3 (12.0-20.0); Calcium, Blood 9.1 mg/dL (8.5-10.1); Creatinine, Blood 0.82 mg/dL (0.40-1.00); Globulin, Blood 4.3 g/dL (2.2-4.0); Potassium, Blood 3.7 mmol/L (3.5-5.5); Total Protein, Blood 7.5 g/dL (6.4-8.2)
[2021-10-02] MEDS ORDERED: CLIN150 PO (18:40)
== END 2021-10-02 21:26 | disposition home or self-care (01) ==
LOC: ER 15:24
PROVIDERS: Emergency Medicine
DX: L03.211 Cellulitis of face (principal); L02.01 Cutaneous abscess of face; K06.9 Disorder of gingiva and edentulous alveolar ridge, unspecified; L53.9 Erythematous condition, unspecified; Z79.899 Other long term (current) drug therapy; Z79.52 Long term (current) use of systemic steroids; Z93.0 Tracheostomy status
CPT/HCPCS: 31720; 36415; 70487; 80053; 83605; 85025; 93005; 93010; 96365-59; 96375-59; 96376-59; 99285-25; J1170; J2060; J2405; Q9967

== ENCOUNTER 2021-10-04 15:58 | Emergency (ER) | payer OTHER ==
[~2021-10-04] VITALS: Ht 165.1 cm; Wt 56.7 kg
[~2021-10-04 15:58] MED LIST changes: +CLIN150 PO
[2021-10-04 18:40] LABS: BASOPHILS ABSOLUTE AUTO 0.05 K/mm3 (0.00-0.23); BASOPHILS PERCENT AUTO 0 % (0-2); EOSINOPHILS ABSOLUTE AUTO 0.17 K/mm3 (0.00-0.68); EOSINOPHILS PERCENT AUTO 1 % (0-6); Hematocrit 33.2 % (33.0-51.0); Hemoglobin 9.1 g/dL (11.5-16.0); IMMATURE GRAN ABSOLUTE AUTO 0.05 K/mm3 (0.00-0.10); IMMATURE GRAN PERCENT AUTO 0 % (0-1); LYMPHOCYTES ABSOLUTE AUTO 0.37 K/mm3 (0.84-5.20); LYMPHOCYTES PERCENT AUTO 3 % (21-46); MONOCYTES ABSOLUTE AUTO 0.46 K/mm3 (0.16-1.47); MONOCYTES PERCENT AUTO 3 % (4-13); Mean Corpuscular HGB 21.9 pg (26.0-34.0); Mean Corpuscular HGB Conc 27.4 g/dL (31.5-36.5); Mean Corpuscular Volume 80 fL (80-100); NEUTROPHILS ABSOLUTE AUTO 13.01 K/mm3 (1.96-9.15); NEUTROPHILS PERCENT AUTO 92 % (41-73); Platelet Count 198 K/mm3 (150-400); RDW Coefficient Variation 18.9 % (11.7-14.2); RDW Standard Deviation 53.7 fL (35.1-46.3); Red Blood Cell Count 4.16 M/mm3 (3.80-5.20); White Blood Cell Count 14.11 K/mm3 (4.00-11.30)
[2021-10-04 19:04] LABS: Albumin/Globulin Ratio 0.7 (0.8-1.8); Bilirubin, Total 0.4 mg/dL (0.1-1.0); Bun/Creatinine Ratio 16.4 (12.0-20.0); Calcium, Blood 9.1 mg/dL (8.5-10.1); Creatinine, Blood 0.73 mg/dL (0.40-1.00); Globulin, Blood 4.5 g/dL (2.2-4.0); Potassium, Blood 3.6 mmol/L (3.5-5.5); Total Protein, Blood 7.5 g/dL (6.4-8.2)
== END 2021-10-04 23:30 | disposition short-term general hospital (02) ==
LOC: ER 15:58
PROVIDERS: Physician Assistant
DX: M27.2 Inflammatory conditions of jaws (principal); K12.2 Cellulitis and abscess of mouth; J43.9 Emphysema, unspecified; F17.200 Nicotine dependence, unspecified, uncomplicated; Z99.81 Dependence on supplemental oxygen; Z79.899 Other long term (current) drug therapy
CPT/HCPCS: 36415; 70487; 80053; 83605; 85025; 96365-59; 96366-59; 96367-59; 96375-59; 96376-59; 99285-25; J0690; J2060; J3010; J3370; J7030; J7060; Q9967

== ENCOUNTER 2021-11-12 14:05 | Emergency (ER) | payer OTHER ==
[~2021-11-12] VITALS: Ht 167.6 cm; Wt 63.5 kg
[~2021-11-12 14:05] MED LIST changes: +Prednisone50 MG PO
== END 2021-11-12 17:45 | disposition home or self-care (01) ==
LOC: ER 14:05
DX: T85.698A Other mechanical complication of other specified internal prosthetic devices, implants and grafts, initial encounter (principal); J44.9 Chronic obstructive pulmonary disease, unspecified; Z79.899 Other long term (current) drug therapy; Z79.52 Long term (current) use of systemic steroids
CPT/HCPCS: 71045; 94640; 94664; J2270

== ENCOUNTER 2022-01-01 15:19 | Emergency (ER) | payer OTHER ==
[~2022-01-01] VITALS: Ht 165.1 cm; Wt 45.4 kg
== END 2022-01-01 17:26 | disposition home or self-care (01) ==
LOC: ER 15:19
DX: J95.03 Malfunction of tracheostomy stoma (principal); J44.9 Chronic obstructive pulmonary disease, unspecified; F17.210 Nicotine dependence, cigarettes, uncomplicated
CPT/HCPCS: 31502

== ENCOUNTER 2022-03-06 21:52 | Emergency (ER) | payer OTHER ==
[~2022-03-06] VITALS: Ht 165.1 cm; Wt 45.4 kg
== END 2022-03-07 00:54 | disposition home or self-care (01) ==
LOC: ER 21:52
DX: Z99.12 Encounter for respirator [ventilator] dependence during power failure (principal); J43.9 Emphysema, unspecified; F17.210 Nicotine dependence, cigarettes, uncomplicated; Z79.899 Other long term (current) drug therapy
CPT/HCPCS: A9270

== ENCOUNTER 2022-04-14 15:58 | Emergency (ER) | payer OTHER ==
[~2022-04-14] VITALS: Ht 157.5 cm; Wt 45.4 kg
== END 2022-04-14 16:44 | disposition home or self-care (01) ==
LOC: ER 15:58
DX: H61.22 Impacted cerumen, left ear (principal); F17.210 Nicotine dependence, cigarettes, uncomplicated; J43.9 Emphysema, unspecified
CPT/HCPCS: 99282

== ENCOUNTER 2022-05-10 | Emergency (ER) | payer OTHER ==
[~2022-05-10] VITALS: Ht 157.5 cm; Wt 54.4 kg
== END 2022-05-10 05:00 | disposition home or self-care (01) ==
LOC: ER
DX: J95.03 Malfunction of tracheostomy stoma (principal); Z79.899 Other long term (current) drug therapy; Z79.52 Long term (current) use of systemic steroids; J44.9 Chronic obstructive pulmonary disease, unspecified; J43.9 Emphysema, unspecified; F17.210 Nicotine dependence, cigarettes, uncomplicated
CPT/HCPCS: 31502; 31720; 71045; 94644; 94664; A9270; J1885

== ENCOUNTER 2022-07-05 17:55 | Inpatient (IN) | payer OTHER ==
[~2022-07-05] VITALS: Ht 154.9 cm; Wt 44.8 kg
[~2022-07-05 17:55] MED LIST changes: +IPRAT-ALBUT 0.5-3 ML INH; +NICO21TP TOP; +Prinivil10 MG PO; +TAZICEF2 G2 IV; +VANCOMYCIN HCL750 MG IV
[2022-07-06 06:18] LABS: Base Excess Venous -0.6 mmol/L; Bicarbonate Venous 23.6 mmol/L (24.0-30.0); PCO2 Venous 48.3 mmHg (38-42); pH Blood Venous 7.33 (7.34-7.37)
--- NOTE | 2022-07-06 06:47 | NUR ---
TX FROM EMS RECEIVED PT FROM EMS, SPO2 70S. RT AT BEDSIDE. PT EXTREMELY ANXIOUS, PULLING AT TRACH AND WIRES. DIFFICULTY SUCTIONING TRACH WELL POOR SYNCHRONY ON VENTILATOR. DR LYLES AT BEDSIDE; 0.5MG ATIVAN AND PATIENT WAS ABLE TO CALM FOR A SHORT PERIOD AND TOLERATE VENTILATION. BUT SOON, PATIENT AGAIN ANXIOUS, PULLING AT VENT TUBING AND TRACH, DESATS LOW 60%. PT'S AGITATION AND ANXIETY FURTHER EXACERBATES HER HYPOXIA. OTHERWISE, PATIENT ORIENTED TO SELF. UNABLE TO ANSWER ORIENTATION QUESTIONS ASKED, SHE IS ANXIOUS. LINTON PURPOSEFULLY. PUPILS PERLL. #6 XLT BIVONA TO VENT, VC/AC, TV 350, RR 16, PEEP 5, FIO2 30%. MINIMAL SECRETIONS ABLE TO BE SUCTIONED FROM TRACH. RECEIVED DUONEB PER RT. LUNGS SOUND DIM THROUGHOUT. MONITOR SHOWING ST, HR 130-140S. ON LOW DOSE LEVO VIA EMS TRANSFER, HOWEVER PATIENT HAS NOT REQUIRED HERE. SBP 110-160S. STARTED ON IVF. AFEBRILE. ZENDEJAS CATHETER IN PLACE FROM OUTSIDE FACILITY, PATENT AND TO DEPENDENT DRAINAGE.
--- NOTE | 2022-07-06 10:30 | NUR ---
ASSUMED CARE OF PT AT 0715 REPORT RECIEVED AT BEDSIDE. PT IS SEVERELY ANXIOUS AND DESATURATING. FIO2 TITRATED UP TO MAINTAIN SPO2 > 90%, ATIVAN RECENTLY GIVEN, VISUALIZATION DONE WITH PT TO INCREASE CALMING. PT RESPONDED WELL. ENCOURAGED TO CONTINUE TO DEEP BREATHE. RIB SAWYER TO BEDSIDE, PROPOFOL ORDERED, TITRATED TO MAX WITH MINIMAL SEDATING EFFECT, KETAMINE ORDERED TO ADJUNCT SEDATION. CHEST PORT ACCESSED, INFUSING. ZENDEJAS IN PLACE DRAINING CLEAR YELLOW URINE. DOBHOFF ORDERED TO BE PLACED AFTER ADEQUATE SEDATION ACHIEVED. DAUGHTER UPDATED VIA PHONE. PALLIATIVE CARE CONSULT PER . RN TO CONTINUE TO FOLLOW.
--- NOTE | 2022-07-06 18:45 | NUR ---
END OF SHIFT SUMMARY NEURO: SEDATED, KETAMINE AND PROPOFOL INFUSING. SEE ICU FLOWSHEET FOR TITRATIONS. CARDIAC: ST, RATE LOW 100'S. BP LOW 100'S. RESP: SEVERAL VENT SETTING CHANGES TO ACHIEVE VENTILATOR COMPLIANCE AND ADEQUATE VENTILATION PER RT AND MD. TRACH CHANGED TO SHILEY #6 XLT. PT ACHIEVING BETTER VOLUMES AND NO LONGER HAS AIR LEAK AROUND TRACH SITE. SETTINGS CURRENTLY 12/450/5/45%. HOME VENT SETTINGS 17/500/5/2L. GI: DOBHOFF PLACED, PLACEMENT CONFIRMED BY XRAY, OK TO USE PER DR. CULVER. TUBE FEED (VITAL HP) STARTED AT 10ML/HR. NO TITRATION ORDERED. BS HYPOACTIVE, DENIED NAUSEA PRIOR TO BEING SEDATED, NO VOMITING. : ZENDEJAS FROM PREVIOUS FACILITY. PLAN TO CHANGE PRIOR TO 07/07 AT 0530. 700 ML YELLOW CLOUDY URINE. SKIN: FRAGILE SKIN WITH SCARRING TO BILATERAL ARMS. IV: RIGHT CHEST PORT ACCESSED, NS INFUSING AT 75ML/HR WITH SEDATION. SEE ICU FLOWSHEET FOR TITRATIONS. DAUGHTER UPDATED VIA PHONE EARLY THIS AM. WAS UNABLE TO REACH DAUGHTER AGAIN TO GIVE UPDATE OR COMPLETE ADMISSION. DR. CULVER ATTEMPTED TO CONTACT DAUGHTER WELL, NO ANSWER. NO MESSAGE LEFT. PALLIATIVE CARE RN WAS ABLE TO CONTACT DAUGHTER VIA PHONE THIS EVENING TO BEGIN POC DISCUSSION. DAUGHTER STATES SHE WILL BE AVAILABLE ALL DAY TOMORROW FOR UPDATES, REQUESTS MD CONTACT HER. MD NOTIFIED.
--- NOTE | 2022-07-06 19:30 | NUR ---
ASSUMED CARE PATIENT INTUBATED AND SEDATED ON PROPOFOL AND KETAMINE. PATIENT NOT OPENING EYES. 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 NO FAMILY AT BEDSIDE.
[2022-07-06 20:32] LABS: Source, Urine Foley catheter
[2022-07-06 20:36] LABS: Appearance, Urine Cloudy (Clear); Bilirubin, Urine Neg (Neg); Blood, Urine 3+ (Neg); Color, Urine Yellow (P-Yellow); Glucose Qualitative, Urine Neg (Neg); Ketones, Urine Neg (Neg); Leukocyte Esterase, Urine 2+ (Neg); Nitrite, Urine Neg (Neg); Protein, Urine 2+ (Neg); Specific Gravity, Urine 1.025 (1.003-1.022); Urobilinogen, Urine NORM (Normal)
[2022-07-06 20:47] LABS: Red Blood Cells, Urine 25-50 /hpf (0-2); Squamous Epithelial Cells Rare /hpf (Few)
[2022-07-06 20:48] LABS: Bacteria Many /hpf; Mucus Mod (0-Heavy)
[2022-07-06 20:53] LABS: WBC Cast 0-2 /lpf (0)
[2022-07-06 20:55] LABS: Amorphous Heavy (0-Heavy)
[2022-07-07 04:15] LABS: BASOPHILS ABSOLUTE AUTO 0.02 K/mm3 (0.00-0.23); BASOPHILS PERCENT AUTO 0 % (0-2); EOSINOPHILS ABSOLUTE AUTO 0.17 K/mm3 (0.00-0.68); EOSINOPHILS PERCENT AUTO 2 % (0-6); Hematocrit 24.9 % (33.0-51.0); Hemoglobin 7.4 g/dL (11.5-16.0); IMMATURE GRAN ABSOLUTE AUTO 0.02 K/mm3 (0.00-0.10); IMMATURE GRAN PERCENT AUTO 0 % (0-1); LYMPHOCYTES ABSOLUTE AUTO 0.57 K/mm3 (0.84-5.20); LYMPHOCYTES PERCENT AUTO 8 % (21-46); MONOCYTES ABSOLUTE AUTO 0.38 K/mm3 (0.16-1.47); MONOCYTES PERCENT AUTO 5 % (4-13); Mean Corpuscular HGB 26.7 pg (26.0-34.0); Mean Corpuscular HGB Conc 29.7 g/dL (31.5-36.5); Mean Corpuscular Volume 90 fL (80-100); Mean Platelet Volume 11.6 fL (9.1-12.4); NEUTROPHILS ABSOLUTE AUTO 6.48 K/mm3 (1.96-9.15); NEUTROPHILS PERCENT AUTO 85 % (41-73); Platelet Count 169 K/mm3 (150-400); RDW Coefficient Variation 19.2 % (11.7-14.2); RDW Standard Deviation 62.8 fL (35.1-46.3); Red Blood Cell Count 2.77 M/mm3 (3.80-5.20); White Blood Cell Count 7.64 K/mm3 (4.00-11.30)
[2022-07-07 04:33] LABS: Albumin, Blood 2.1 g/dL (3.4-5.0); Albumin/Globulin Ratio 0.6 (0.8-1.8); Bilirubin, Total 0.3 mg/dL (0.1-1.0); Bun/Creatinine Ratio 23.6 (12.0-20.0); Calcium, Blood 7.9 mg/dL (8.5-10.1); Creatinine, Blood 0.8 mg/dL (0.40-1.00); Globulin, Blood 3.4 g/dL (2.2-4.0); Magnesium, Blood 1.8 mg/dL (1.6-2.4); Phosphorus, Blood 2.1 mg/dL (2.5-4.9); Potassium, Blood 3.9 mmol/L (3.5-5.5); Total Protein, Blood 5.5 g/dL (6.4-8.2)
--- NOTE | 2022-07-07 06:34 | NUR ---
PATIENT CONTINUES INTUBATED/SEDATED. PATIENT HAVING COPIOUS AMOUNTS OF THICK SECRETIONS. CONTINUES ON KETAMINE DRIP AND NS. OFF OF PROPOFOL. DOBHOFF ITACT WITH VITAL HP AT TRICKLE FEED. OUTSIDE FACILITY ZENDEJAS REPLACED AND UA SENT.
--- NOTE | 2022-07-07 13:26 | NUR ---
Pt resting in bed with eyes closed, ventilated, and sedated. Spoke with Pt's primary RN Mandi and discussed case. Called and spoke with Pt's daughter Denae. Provided update and reviewed plan of care. Engaged in therpaeutic conversation regarding hospice. Daughter giovanny was told after last hospitalization that hospice was not necassary but an option to consider. Gentle education on disease process including trajectory and reported hospice remains an option for Pt to consider. Offered therapeutic listening and answered questions. Palliative Care will remain available
--- NOTE | 2022-07-07 18:02 | NUR ---
SUMMARY PT HAS TRACH TO VENT. NO SETTING CHANGES TODAY. PT HAS COPIOUS AMTS OF THICK TENACIOUS WHITE/EMERSON SPUTUM. PT WAS ONLY ON KETAMINE FOR PART OF THE DAY BUT BECAME VERY ANXIOUS AND FLAILING IN BED. RESULTED IN PT ACCIDENTLY DISCONNECTING HERSELF FROM THE VENT SEVERAL TIMES. PROPOFOL WAS RESTARTED AND PT HAS BEEN RESTING SINCE. WHEN OFF PROPOFOL PT WILL NOD YES OR NO TO QUESTIONS AND ABLE TO FOLLOW COMMANDS BEFORE ANXIETY ATTACK. KLONIPIN ORDERS CHANGED PER DR. CULVER WELL. TUBE FEED CHANGED TO JEVITY 1.2 PER ELECTRONIC NEWS GATHERING CAMERA PERSON AND RATE INCREASED TO 20ML THEN 40ML. NO OTHER CHANGES THIS SHIFT.
--- NOTE | 2022-07-07 23:20 | NUR ---
ASSUMPTION OF CARE/ASSESSMENT: ASSUMED CARE OF PT AT 1900. PT CURRENTLY VENTILATED VIA TRACH WITH SETTINGS AC/VC 16/450/5/45%. PT SEDATED WITH PROPOFOL GTT @ 30 MCG AND KETAMINE GTT @ 1.5. PT RESPONSIVE TO PAIN STIMULI AND ATTEMPTS TO OPEN EYES. PT LUNG SOUNDS ARE VERY COARSE THROUGHOUT AND COPIOUS AMOUNTS OF SPUTUM OUT OF TRACH THAT IS THICK AND WHITE/EMERSON. PT SR ON MONITOR WITH HR 70'S AND SBP 100'S. PT HAS DISTENDED ABD THAT IS SOFT, HYPOACTIVE BOWEL SOUNDS PRESENT. PT HAS DOBHOFF IN PLACE WITH TUBE FEEDINGS @ 40 MLS/HR (GOAL RATE). PPP X 4, SCATTERED SCARS THAT ARE HEALING THROUGHOUT BUE AND TORSO; PT SKIN FRAGILE. ZENDEJAS IN PLACE AND DRAINING TO GRAVITY. BED LOWERED, JOSHUA CONTINUE TO MONITOR THROUGHOUT THE SHIFT.
[2022-07-08 05:39] LABS: BASOPHILS ABSOLUTE AUTO 0.04 K/mm3 (0.00-0.23); BASOPHILS PERCENT AUTO 0 % (0-2); EOSINOPHILS ABSOLUTE AUTO 0.28 K/mm3 (0.00-0.68); EOSINOPHILS PERCENT AUTO 3 % (0-6); Hemoglobin 7.5 g/dL (11.5-16.0); IMMATURE GRAN ABSOLUTE AUTO 0.05 K/mm3 (0.00-0.10); IMMATURE GRAN PERCENT AUTO 0 % (0-1); LYMPHOCYTES ABSOLUTE AUTO 0.48 K/mm3 (0.84-5.20); LYMPHOCYTES PERCENT AUTO 4 % (21-46); MONOCYTES ABSOLUTE AUTO 0.47 K/mm3 (0.16-1.47); MONOCYTES PERCENT AUTO 4 % (4-13); Mean Corpuscular HGB 26.9 pg (26.0-34.0); Mean Corpuscular Volume 90 fL (80-100); Mean Platelet Volume 12.4 fL (9.1-12.4); NEUTROPHILS ABSOLUTE AUTO 9.82 K/mm3 (1.96-9.15); NEUTROPHILS PERCENT AUTO 88 % (41-73); Platelet Count 161 K/mm3 (150-400); RDW Coefficient Variation 19.6 % (11.7-14.2); RDW Standard Deviation 64.2 fL (35.1-46.3); Red Blood Cell Count 2.79 M/mm3 (3.80-5.20); White Blood Cell Count 11.14 K/mm3 (4.00-11.30)
[2022-07-08 16:44] LABS: Bun/Creatinine Ratio 17.5 (12.0-20.0); Calcium, Blood 7.9 mg/dL (8.5-10.1); Creatinine, Blood 0.69 mg/dL (0.40-1.00); Magnesium, Blood 1.8 mg/dL (1.6-2.4); Potassium, Blood 3.9 mmol/L (3.5-5.5)
--- NOTE | 2022-07-08 18:35 | NUR ---
Spoke with pt's daughter Denae and we discussed code status. Denae states she will continue to honor her mom's wishes and keep her as a full code.
--- NOTE | 2022-07-08 18:41 | NUR ---
SUMMARY PT HAS ESTABLISHED TRACH TO VENT. PLACED PT ON HER HOME VENT THIS AM AND DECREASED SEDATION. PT DID NOT TOLERATE. TACHYPNEIC, TACHYCARDIC, HYPERTENSIVE, AND ETCO2 UP TO 68. PLACED BACK ON SEDATION AND BACK ON HOSPITAL VENT AND ALL ISSUES RESOLVED. PT IS HAVING COPIOUS AMT OF THICK TENACIOUS SPUTUM. PT GETS PLUGS OFTEN CAUSING TV TO GO DOWN AND DESATS. ALSO HAS COPIOUS AMT OF SPUTUM COMING OUT AROUND TRACH. PALLIATIVE CARE IN CONTACT WITH DAUGHTER FOR PLAN OF CARE.
--- NOTE | 2022-07-08 19:00 | NUR ---
ASSUMED CARE ASSUMED CARE OF PATIENT. VENT SETTINGS- AC/VC+ 16/450/5/30%. TRACH NOTED- MODERATE AMOUNT OF CLEAR SECRETIONS AROUND TRACH. SEDATED WITH PROPOFOL AT 45MCG/KG/MIN AND KETAMINE AT 1.5MG/KG/HR. MONITOR SHOWS NSR, RATE 80s-90s. BP STABLE. DOBHOFF WITH JEVITY 1.2 AT GOAL RATE OF 40MLS/HR. ZENDEJAS PATENT AND DRAINING TO GRAVITY. MEDIPORT NOTED TO RIGHT CHEST. NADER POWERGLIDE NOTED. SEE SHIFT ASSESSMENT FOR FULL ASSESSMENT.
[2022-07-09 04:36] LABS: BASOPHILS ABSOLUTE AUTO 0.03 K/mm3 (0.00-0.23); BASOPHILS PERCENT AUTO 0 % (0-2); EOSINOPHILS ABSOLUTE AUTO 0.29 K/mm3 (0.00-0.68); EOSINOPHILS PERCENT AUTO 3 % (0-6); Hematocrit 24.2 % (33.0-51.0); Hemoglobin 7.1 g/dL (11.5-16.0); IMMATURE GRAN ABSOLUTE AUTO 0.04 K/mm3 (0.00-0.10); IMMATURE GRAN PERCENT AUTO 1 % (0-1); LYMPHOCYTES ABSOLUTE AUTO 0.62 K/mm3 (0.84-5.20); LYMPHOCYTES PERCENT AUTO 7 % (21-46); MONOCYTES ABSOLUTE AUTO 0.51 K/mm3 (0.16-1.47); MONOCYTES PERCENT AUTO 6 % (4-13); Mean Corpuscular HGB 26.4 pg (26.0-34.0); Mean Corpuscular HGB Conc 29.3 g/dL (31.5-36.5); Mean Corpuscular Volume 90 fL (80-100); Mean Platelet Volume 12.5 fL (9.1-12.4); NEUTROPHILS ABSOLUTE AUTO 7.15 K/mm3 (1.96-9.15); NEUTROPHILS PERCENT AUTO 83 % (41-73); NRBC ABSOLUTE 0.02 K/mm3 (0.00-0.02); NRBC Auto 0.2 /100 WBC (0.0-0.2); Platelet Count 165 K/mm3 (150-400); RDW Coefficient Variation 20.2 % (11.7-14.2); RDW Standard Deviation 66.9 fL (35.1-46.3); Red Blood Cell Count 2.69 M/mm3 (3.80-5.20); White Blood Cell Count 8.64 K/mm3 (4.00-11.30)
[2022-07-09 05:13] LABS: Albumin, Blood 1.7 g/dL (3.4-5.0); Albumin/Globulin Ratio 0.5 (0.8-1.8); Bilirubin, Total 0.2 mg/dL (0.1-1.0); Bun/Creatinine Ratio 19.2 (12.0-20.0); Calcium, Blood 8.2 mg/dL (8.5-10.1); Creatinine, Blood 0.68 mg/dL (0.40-1.00); Globulin, Blood 3.6 g/dL (2.2-4.0); Magnesium, Blood 1.9 mg/dL (1.6-2.4); Phosphorus, Blood 2.6 mg/dL (2.5-4.9); Potassium, Blood 3.9 mmol/L (3.5-5.5); Total Protein, Blood 5.3 g/dL (6.4-8.2)
--- NOTE | 2022-07-09 06:22 | NUR ---
SHIFT SUMMARY NO ACUTE CHANGES. REMAINS ON MECHANICAL VENTILATION VIA TRACH- AC/VC+ 16/450/5/50%. SEDATED WITH PROPOFOL AND KETAMINE. PROPOFOL TITRATED BETWEEN 20-45MCG/KG/MIN- NOW AT 45MCG/KG/MIN. KETAMINE AT 1.5MG/KG/HR. MOVES ALL EXTREMITIES, BUT NOT FOLLOWING COMMANDS. OPENS EYES SLIGHTLY TO NOXIOUS STIMULI. DOBHOFF WITH JEVITY 1.2 AT GOAL RATE OF 40MLS/HR AND WITH 70ML H20 FLUSH Q4H. ZENDEJAS PATENT AND DRAINING TO GRAVITY. MONITOR SHOWS NSR, RATE 80s-90s. SBP 90s-120s WITH MAP >65. TMAX 99.3F. WILL REPORT TO ONCOMING RN WHEN AVAILABLE.
--- NOTE | 2022-07-09 07:00 | NUR ---
ASSUMPTION OF CARE PT IS RECEIVING PROPOFOL 40MCG/KG/MIN, KETAMINE 1.5MG/KG/HR, AND NS 75ML/HR. SHE REMAINS ON VENTILATOR VIA TRACH WITH SETTINGS AC/VC 16/450/5/50%. PT OCCASIONALLY MAKES SMALL MOVEMENTS WITH EXTREMITIES BUT DOES NOT FOLLOW COMMANDS. PT INCONSISTENTLY OPENS EYES TO VERBAL STIMULI. TUBE FEED INFUSING AT GOAL RATE VIA DOBHOFF. ZENDEJAS PATENT AND DRAINING TO GRAVITY. SEE SHIFT ASSESSMENT.
--- NOTE | 2022-07-09 16:35 | NUR ---
UPDATE ATTEMPTED TITRATING SEDATION DOWN THROUGHOUT SHIFT. PT MORE AWAKE, COUGHING WITH COPIOUS SECRETIONS. ETT SUCTIONED SEVERAL TIMES AND SECRETIONS WEEPING AROUND TRACH. PT TACHYPNEIC WITH RATE 20-30, FIO2 INCREASED TO 100%. PT HYPERTENSIVE AND TACHYCARDIC. ATIVAN GIVEN PER EMAR AND SEDATION TITRATED. PROPOFOL CURRENTLY 50MCG/KG/MIN AND KETAMINE 1.5MG/KG/HR.
--- NOTE | 2022-07-09 17:24 | NUR ---
SHIFT SUMMARY PT IS RECEIVING PROPOFOL 30MCG/KG/MIN, KETAMINE 1.5MG/KG/HR, AND NS TKO. SHE REMAINS ON THE VENT VIA TRACH WITH SETTINGS AC/VC 16/450/7/50%. INNER CANNULA CHANGED BY RT THIS SHIFT AND TRACH CARE DONE MULTIPLE TIMES. SHE CONTINUES TO HAVE COPIOUS SECRETIONS FROM TRACH AND AROUND TRACH SITE. LUNGS ARE COARSE AND DIMINISHED. SINUS RHYTHM ON MONITOR WITH RATE 100S. BP STABLE WITH 110S. JEVITY TF INFUSING VIA DOBHOFF. GOAL RATE CHANGED TO 25ML/HR WITH 250ML WATER FLUSHES Q4HRS. NO BM THIS SHIFT, SUPPOSITORY GIVEN PER EMAR. ZENDEJAS PATENT AND DRAINING TO GRAVITY WITH 2350ML PALE YELLOW URINE OUTPUT. TMAX 100.4. BLANKETS REMOVED AND FAN AT BEDSIDE. BED IN LOW POSITION.
--- NOTE | 2022-07-09 19:00 | NUR ---
ASSUMED CARE OF PT AT 1900 PT SEDATED AND VENTILATED. NO VISITORS AT THIS TIME. VITALS STABLE AT THIS TIME. KETAMINE @ 1.5 PROP @ 20 LEVO ON SB TF AT GOAL RATE SET TO FLUSH 250 MLS/Q4. MILD FEVER OF 100.5 SEE FULL ASSESSMENT FOR FURTHER INFORMATION.
--- NOTE | 2022-07-09 20:35 | NUR ---
DAUGHTER ELMER CALLED FOR UPDATE ON PT. UPDATE GIVEN WITH STATEMENT OF NO CHANGES AT THIS TIME. 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 ELMER STATES THAT HER MOTHER WILL BE COMING HOME TO HER AND SHE WOULD LIKE TO KNOW WHAT COMMUNICABLE ISSUES SHE NEEDS TO BE AWARE OF. REQUEST WILL BE GIVEN TO DAYSHIFT RN SINCE IT IS NO CRITICAL TO CALL DR. PAYNE NOTIFIED OF THIS WELL.
[2022-07-10 03:49] LABS: BASOPHILS ABSOLUTE AUTO 0.02 K/mm3 (0.00-0.23); BASOPHILS PERCENT AUTO 0 % (0-2); EOSINOPHILS ABSOLUTE AUTO 0.28 K/mm3 (0.00-0.68); EOSINOPHILS PERCENT AUTO 4 % (0-6); Hematocrit 24.6 % (33.0-51.0); Hemoglobin 7.3 g/dL (11.5-16.0); IMMATURE GRAN ABSOLUTE AUTO 0.02 K/mm3 (0.00-0.10); IMMATURE GRAN PERCENT AUTO 0 % (0-1); LYMPHOCYTES ABSOLUTE AUTO 0.69 K/mm3 (0.84-5.20); LYMPHOCYTES PERCENT AUTO 9 % (21-46); MONOCYTES ABSOLUTE AUTO 0.51 K/mm3 (0.16-1.47); MONOCYTES PERCENT AUTO 6 % (4-13); Mean Corpuscular HGB 26.5 pg (26.0-34.0); Mean Corpuscular HGB Conc 29.7 g/dL (31.5-36.5); Mean Corpuscular Volume 90 fL (80-100); NEUTROPHILS ABSOLUTE AUTO 6.59 K/mm3 (1.96-9.15); NEUTROPHILS PERCENT AUTO 81 % (41-73); Platelet Count 144 K/mm3 (150-400); RDW Coefficient Variation 20.2 % (11.7-14.2); RDW Standard Deviation 66.1 fL (35.1-46.3); Red Blood Cell Count 2.75 M/mm3 (3.80-5.20); White Blood Cell Count 8.11 K/mm3 (4.00-11.30)
[2022-07-10 03:52] LABS: Bun/Creatinine Ratio 20.5 (12.0-20.0); Calcium, Blood 8.1 mg/dL (8.5-10.1); Creatinine, Blood 0.64 mg/dL (0.40-1.00); Potassium, Blood 4.2 mmol/L (3.5-5.5)
--- NOTE | 2022-07-10 04:52 | NUR ---
END OF SHIFT SUMMARY PT SEDATED AND VENTILATED. RESPONDS TO VERBAL AND NOXIOUS STIMULI. PT MOVES LEGS AND ARMS RANDOMLY AT TIMES. WILL NOD HEAD YES OR NO TO QUESTIONS. CARDIAC- SBP 120'S-130'S. HR 80'S. SR. RESP- VENT SETTINGS 16/450/7/50%. SPO2 95-100%. TRACH SUCTION NEEDED EVERY HOUR DUE TO LARGE AMOUNTS OF SERETIONS. THICK YELLOW/EMERSON SPUTUM SUCTIONED. LUNG SOUNDS COURSE THROUGHOUT BILATERALLY. GI.- TF AT GOAL RATE OF 25 MLS/HR SET TO FLUSH Q4 HRS 250 MLS. ONE MEDIUM STOOL THIS SHIFT. STOOL DARK BROWN WITH FOUL ODOR AND THIN CONSISTANCY. FOLLEY CATH PATENT AND DRAINING TO GRAVITY. YELLOW/CLEAR URINE PRESENT. INTEG- NO CHANGES. PROP @ 20 KETAMINE @ 1.5 TKO @ 10 MLS/HR. LEVO STILL ON SB WITH NO USE THIS SHIFT. WILL CONTINUE TO MONITOR UNTIL REPORT GIVEN TO DAYSHIFT RN.
--- NOTE | 2022-07-10 07:23 | NUR ---
ASSUMPTION OF CARE PT IS RECEIVING PROPOFOL 25MCG/KG/MIN AND KETAMINE 1.5MG/KG/HR. SHE REMAINS ON THE VENT VIA TRACH WITH SETTINGS AC/VC 16/450/7/50%. VSS AT THIS TIME. SEE SHIFT ASSESSMENT.
--- NOTE | 2022-07-10 16:11 | NUR ---
UPDATE SISTER AND GRANDDAUGHTER AT BEDSIDE. DR NATION UPDATED FAMILY AND ANSWERED QUESTIONS. ATTEMPTING TO TITRATE SEDATION DOWN. PROPOFOL AT 20MCG/KG/MIN AND KETAMINE 1.0MG/KG/HR. PT MORE ALERT AND INTERACTIVE WITH FAMILY.
--- NOTE | 2022-07-10 17:37 | NUR ---
SHIFT SUMMARY PT IS RECEIVING PROPOFOL 20MCG/KG/MIN AND KETAMINE 1.0MG/KG/HR. SHE REMAINS ON THE VENT VIA TRACH WITH SETTINGS AC/VC 16/450/7/40%. PT MORE AWAKE AND ALERT. SHE MAKES SMALL MOVEMENTS WITH UPPER EXTREMITIES AND PURPOSEFUL MOVEMENTS WITH LOWER EXTREMITIES. TUBE FEEDING INFUSING VIA DOBHOFF AT GOAL RATE. ZENDEJAS PATENT AND DRAINING TO GRAVITY WITH SHIFT OUTPUT 1900ML PALE YELLOW URINE. VSS THROUGHOUT SHIFT.
[2022-07-11 03:42] LABS: BASOPHILS ABSOLUTE AUTO 0.05 K/mm3 (0.00-0.23); BASOPHILS PERCENT AUTO 1 % (0-2); EOSINOPHILS ABSOLUTE AUTO 0.29 K/mm3 (0.00-0.68); EOSINOPHILS PERCENT AUTO 3 % (0-6); Hematocrit 23.8 % (33.0-51.0); Hemoglobin 7.2 g/dL (11.5-16.0); IMMATURE GRAN ABSOLUTE AUTO 0.04 K/mm3 (0.00-0.10); IMMATURE GRAN PERCENT AUTO 0 % (0-1); LYMPHOCYTES ABSOLUTE AUTO 0.72 K/mm3 (0.84-5.20); LYMPHOCYTES PERCENT AUTO 8 % (21-46); MONOCYTES ABSOLUTE AUTO 0.61 K/mm3 (0.16-1.47); MONOCYTES PERCENT AUTO 7 % (4-13); Mean Corpuscular HGB 26.7 pg (26.0-34.0); Mean Corpuscular HGB Conc 30.3 g/dL (31.5-36.5); Mean Corpuscular Volume 88 fL (80-100); Mean Platelet Volume 11.8 fL (9.1-12.4); NEUTROPHILS ABSOLUTE AUTO 7.18 K/mm3 (1.96-9.15); NEUTROPHILS PERCENT AUTO 81 % (41-73); Platelet Count 160 K/mm3 (150-400); RDW Coefficient Variation 19.6 % (11.7-14.2); RDW Standard Deviation 63.4 fL (35.1-46.3); White Blood Cell Count 8.89 K/mm3 (4.00-11.30)
[2022-07-11 03:57] LABS: Bun/Creatinine Ratio 21.6 (12.0-20.0); Creatinine, Blood 0.6 mg/dL (0.40-1.00); Potassium, Blood 4.2 mmol/L (3.5-5.5)
--- NOTE | 2022-07-11 05:39 | NUR ---
END OF SHIFT SUMMARY PT ANXIOUS MOST OF THE NIGHT. DOES NOT LIKE REPOSITIONING OR PILLOWS ON BONY PROMINANCES. RESPONDS TO VERBAL AND PAINFUL STIMULI. CARDIAC-SBP 120'S-130'S WITH HR RANGING IN 90'S. RESP- TRACH VENT 16/450/8/70%. RT IN ROOM MULTIPLE TIMES THIS SHIFT DUE TO POSITIONAL TRACH. LARGE AMOUNT OF SECRETIONS PRESENT AROUND TRACH ITSELF. SPUTUM FROM SUCTION DOWN TRACH IS THICK EMERSON AND YELLOW. GI, - FOLLEY DRAINING TO GRAVITY WITH YELLOW/CLEAR URINE PRESENT. NO BM THIS SHIFT. TF IS SET AT GOAL RATE WITH NO CHANGES FROM PRIOR DAYSHIFT. PROPOFOL @ 20 MCG KETAMINE @ 1.2 TKO WILL CONTINUE TO MONITOR UNTIL REPORT GIVEN TO DAYSHIFT RN.
--- NOTE | 2022-07-11 07:15 | NUR ---
ASSUMPTION OF CARE PT RECEICING PROPOFOL 20MCG/KG/MIN AND KETAMINE 1.2MG/KG/HR. SHE OPENS EYES SPONTANEOUSLY AND MAKES PURPOSEFUL MOVEMENTS WITH ALL EXTREMITIES. TUBE FEEDING INFUSING VIA DOBHOFF AT GOAL RATE. ZENDEJAS PATENT AND DRAINING TO GRAVITY. VSS AT THIS TIME. SEE SHIFT ASSESSMENT.
--- NOTE | 2022-07-11 15:49 | NUR ---
UPDATE PT RECEIVING PROPOFOL 20MCG/KG/MIN AND KETAMINE 0.6MG/KG/HR. SHE IS AWAKE AT THIS TIME, COMMUNICATING BY MOUTHING WORDS. SHE ASKS "WHERE ARE WE?". EXPLAINED TO PT EVENTS THAT LED TO TRANSFER TO [facility]. PT ASKS TO SIT ON EDGE OF BED. ASSISTED TO SIT ON EDGE OF BED FOR APPROX 10MIN. PT TOLERATED WELL, LOOKING OUT WINDOW AND PARTICIPATING IN CONVERSATION. PT ASKS ABOUT FAMILY. SHE REPORTS DISCOMFORT, ASSISTED BACK INTO BED.
--- NOTE | 2022-07-11 17:44 | NUR ---
SHIFT SUMMARY PT RECEIVING PROPOFOL 20MCG/KG/MIN AND KETAMINE 1.2MG/KG/HR. SHE REMAINS ON THE VENT VIA TRACH WITH SETTINGS AC/VC 16/450/7/40%. PT HAS BEEN AWAKE MOST OF THE DAY AND MORE INTERACTIVE. TUBE FEEDING INFUSING VIA OGT AT GOAL RATE. ZENDEJAS PATENT AND DRAINING TO GRAVITY. VSS THROUGHOUT SHIFT. BED IN LOW POSITION AND CALL LIGHT WITHIN REACH.
--- NOTE | 2022-07-12 07:30 | NUR ---
ASSUMPTION OF CARE NOTE: ASSUMED CARE OF PT AT 0700. PT OPENS EYES, ABLE TO FOLLOW SIMPLE COMMANDS. ABLE TO COMMUNICATE VIA HEAD GESTURES. PT NODS "YES" TO PAIN, MORPHINE GIVEN PER ORDER. PT ON PROPOFOL AND KETAMINE FOR VENT COMPLIANCE. PT ON VENT VIA TRACH WITH SETTINGS AT SIMV/VC+, RR 17, TV 450, PS 12, FIO2 40% PT HAVING COPIUS AMOUNTS OF SECTRETIONS VIA TACH, THICK AND YELLOW IN COLOR. PT IN SR TO ST WITH HR BETWEEN 90-105. TUBE FEED RUNNING AT GOAL 25ML/HR. ZENDEJAS PATENT, DRAINING TO GRAVITY. WILL CONTINUE WITH PLAN OF CARE.
--- NOTE | 2022-07-12 17:43 | NUR ---
SHIFT SUMMARY; PT OFF SEDATION SINCE 1350 PER REQUEST. PT HAS BEEN RECEVING PRN ATIVAN AND MORPHINE PER MAR WITH GOOD EFFECT. PT IS ALERT, USING CALL LIGHT FOLLOWING COMMANDS. PT CAN BECOME ANXIOUS AT TIMES DUE TO EXCESS SECRETIONS. PT CONTINUES TO BE ON VENT WITH SETTINGS AT : SIMV/VC+, RR 17, TV 450, PS 12, PEEP 5, FiO2 40%, SpO2 ABOVE 90% PT CONTINUES TO REQUIRE FREQUENT SUCTIONING. COPIUS AMOUNTS OF THICK YELLOW SECRETIONS NOTED VIA TRACH. PT HAS BEEN IN SR TO ST WITH HR BETWEEN 80-105, BP STABLE. TUBE FEED RUNNING AT GOAL 25ML/HR, WITH 250ML FLUSHES Q4HRS. NO BM THIS SHIFT. ZENDEJAS PATENT, DRAINING TO GRAVITY, GOOD URINE OUTPUT NOTED. WILL CONTINUE WITH PLAN OF CARE UNTIL REPORT IS GIVEN TO ONCOMING SHIFT.
--- NOTE | 2022-07-12 18:36 | NUR ---
ATTEMPTED TO CALL WITH UPDATE, NO ANSWER
[2022-07-13 03:33] LABS: BASOPHILS ABSOLUTE AUTO 0.04 K/mm3 (0.00-0.23); BASOPHILS PERCENT AUTO 1 % (0-2); EOSINOPHILS ABSOLUTE AUTO 0.24 K/mm3 (0.00-0.68); EOSINOPHILS PERCENT AUTO 4 % (0-6); Hematocrit 23.5 % (33.0-51.0); Hemoglobin 7.2 g/dL (11.5-16.0); IMMATURE GRAN ABSOLUTE AUTO 0.05 K/mm3 (0.00-0.10); IMMATURE GRAN PERCENT AUTO 1 % (0-1); LYMPHOCYTES ABSOLUTE AUTO 0.88 K/mm3 (0.84-5.20); LYMPHOCYTES PERCENT AUTO 14 % (21-46); MONOCYTES ABSOLUTE AUTO 0.43 K/mm3 (0.16-1.47); MONOCYTES PERCENT AUTO 7 % (4-13); Mean Corpuscular HGB 26.5 pg (26.0-34.0); Mean Corpuscular HGB Conc 30.6 g/dL (31.5-36.5); Mean Corpuscular Volume 86 fL (80-100); Mean Platelet Volume 12.7 fL (9.1-12.4); NEUTROPHILS ABSOLUTE AUTO 4.67 K/mm3 (1.96-9.15); NEUTROPHILS PERCENT AUTO 74 % (41-73); Platelet Count 193 K/mm3 (150-400); RDW Coefficient Variation 18.5 % (11.7-14.2); RDW Standard Deviation 58.3 fL (35.1-46.3); Red Blood Cell Count 2.72 M/mm3 (3.80-5.20); White Blood Cell Count 6.31 K/mm3 (4.00-11.30)
[2022-07-13 03:49] LABS: Bun/Creatinine Ratio 32.6 (12.0-20.0); Calcium, Blood 8.3 mg/dL (8.5-10.1); Creatinine, Blood 0.58 mg/dL (0.40-1.00); Phosphorus, Blood 3.1 mg/dL (2.5-4.9); Potassium, Blood 3.8 mmol/L (3.5-5.5)
--- NOTE | 2022-07-13 06:22 | NUR ---
END OF SHIFT SUMMARY PT RESTLESS MOST OF THE NIGHT. C/O PAIN CONSTANTLY. DOES NOT USE THE CALL LIGHT SHOWN. CARDIAC- NO CHANGES IN BP OR HR THIS SHIFT. WNL. RESP- COPIOUS AMOUNTS OF SECRETIONS AND SPUTUM THROUGHOUT THIS SHIFT. MANY ET SUCTIONS REQUESTED BY THE PT. RT IN ROOM SEVERAL TIMES THIS SHIFT. GI-- VERY SMALL BOWEL MOVEMENT. ZENDEJAS DRAINGING TO GRAVITY. YELLOW/CLEAR URINE PRESENT. TF AT GOAL RATE OF MLS/HR WITH Q4 FLUSHES. TKO @ 10 MLS/HR. WILL CONTINUE TO MONITOR UNTIL AM RN IS GIVEN REPORT.
--- NOTE | 2022-07-13 12:50 | NUR ---
PT USED CALL LIGHT AND REQUESTED "SUCTION." PT ABLE TO MOUTH WORDS. PT SUCTIONED FOR COPIOUS, THICK, YELLOW SPUTUM. PT THEN REQUESTED TO BE PLACED BACK ON HOSPITAL VENTILATOR. TV 500'S AND SATS 100%-YET PT STATES "I CAN'T BREATHE. IT'S NOT FAIR. I CAN'T REST." PT REQUESTING PAIN MED. PT MADE AWARE THAT SHE CAN HAVE PAIN MEDICATION AROUND 1400.
--- NOTE | 2022-07-13 14:48 | NUR ---
Spiritual Care Visit. Pt. is awake breathing through a trach. Through whispers and non-verbal nods the Pt. welcomes my visit. Because of the difficulty of communication on part of the Pt. the visit is kept short. Prayed with the Pt. Pt. with a nod communicated gratitude for the spiritual care visit.
--- NOTE | 2022-07-13 17:49 | NUR ---
SHIFT SUMMARY.... THE PT WAS ON HER HOME VENT FOR A LITTLE OVER 6 HRS THIS SHIFT. PT REQUESTED TO BE SWITCHED TO THE HOSPITAL VENT BECAUSE SHE "CAN'T BREATH" ON HER HOME VENT. THE HOME VENT SETTINGS AND THE HOSPITAL VENT SETTINGS ARE THE SAME. THE PT WAS MEDICATED FOR PAIN AND ANXIETY SEVERAL TIMES THIS SHIFT. THE PT WAS SUCTIONED MANY TIMES PER HOUR D/T COPIOUS AMOUNTS OF THICK EMERSON SECRETIONS. SHE HAS NOT HAD A BM SINCE 07/10, PT REFUSED ANY BOWEL CARE THIS SHIFT, SHE WAS EDUCATED ON HOW TAKING PAIN MEDICATION CAN CAUSE CONSTIPATION SHE NODDED HER UNDERSTANDING BUT STILL REFUSED. TUBE FEEDS ARE RUNNING AT 25MLS/HR WHICH IS GOAL WITH 250MLS FLUSHES Q4 HRS. THE PT'S ZENDEJAS IS PATENT AND DRAINING CLEAR YELLOW URINE TO GRAVITY. PLAN IS FOR THE PT TO BE SEEN BY SPEECH AND CHANGED TO A REGULAR DIET. CALL LIGHT IN REACH WILL CONTINUE TO MONITOR UNTIL REPORT IS GIVEN TO ONCOMING RN.
[2022-07-14 02:26] LABS: BASOPHILS ABSOLUTE AUTO 0.03 K/mm3 (0.00-0.23); BASOPHILS PERCENT AUTO 0 % (0-2); EOSINOPHILS ABSOLUTE AUTO 0.18 K/mm3 (0.00-0.68); EOSINOPHILS PERCENT AUTO 3 % (0-6); Hematocrit 25.4 % (33.0-51.0); Hemoglobin 7.8 g/dL (11.5-16.0); IMMATURE GRAN ABSOLUTE AUTO 0.05 K/mm3 (0.00-0.10); IMMATURE GRAN PERCENT AUTO 1 % (0-1); LYMPHOCYTES ABSOLUTE AUTO 0.95 K/mm3 (0.84-5.20); LYMPHOCYTES PERCENT AUTO 14 % (21-46); MONOCYTES ABSOLUTE AUTO 0.41 K/mm3 (0.16-1.47); MONOCYTES PERCENT AUTO 6 % (4-13); Mean Corpuscular HGB 26.4 pg (26.0-34.0); Mean Corpuscular HGB Conc 30.7 g/dL (31.5-36.5); Mean Corpuscular Volume 86 fL (80-100); Mean Platelet Volume 11.2 fL (9.1-12.4); NEUTROPHILS ABSOLUTE AUTO 5.17 K/mm3 (1.96-9.15); NEUTROPHILS PERCENT AUTO 76 % (41-73); Platelet Count 205 K/mm3 (150-400); RDW Standard Deviation 56.6 fL (35.1-46.3); Red Blood Cell Count 2.95 M/mm3 (3.80-5.20); White Blood Cell Count 6.79 K/mm3 (4.00-11.30)
[2022-07-14 02:42] LABS: Bun/Creatinine Ratio 41.7 (12.0-20.0); Calcium, Blood 8.8 mg/dL (8.5-10.1); Creatinine, Blood 0.58 mg/dL (0.40-1.00); Potassium, Blood 4.3 mmol/L (3.5-5.5)
--- NOTE | 2022-07-14 06:31 | NUR ---
SHIFT SUMMARY OVERNIGHT, PATIENT ALERT AND ORIENTED X4. ANXIOUS, IRRITABLE. MEDICATED MULTIPLE TIMES OVERNIGHT FOR ANXIETY AND PAIN. WITHIN 1-2 MINUTES OF ADMINISTRATION OF PAIN MEDIACTIONS, PATIENT REQUESTING ADDITIONAL DOSES. BECOMES AGITATED WHEN ATTEMPTING TO EDUCATE ON PAIN MEDICATION REGIMEN. ATTEMPTED OTHER PAIN CONTROL METHODS SUCH HEAT PACK AND COLD THERAPY, AND PATIENT REQUESTS TO HAVE THEM DISCONTINUED WITHIN MINUTES OF COMPLETING SETUP. REFUSING ORAL CARE, CHG BATH, AND TRACH CARE MULTIPLE TIMES OVERNIGHT, DESPITE EDUCATION. THIS RN HAD AN ADDITIONAL RN REQUEST TO PERFORM THESE CARES, AND PATIENT STILL REFUSES. OTHERWISE, MONITOR SHOWING SR, HR 70-90S. SBP 80-120S. REMAINS VENTED TO TRACH, AC/SIMV. LESS SECRETION PRODUCTION COMPARED TO PREVIOUS SHIFT. NPO. JEVITY 1.2 AT GOAL RATE TO LEFT NARE DOBHOFF. PLAN FOR SPEECH EVAL TODAY. MEDICATED FOR NAUSEA X1 OVERNIGHT WITH RESOLUTION OF SYMPTOMS. NO BM. ZENDEJAS CATHETER TO DRAINAGE, 500CC OUTPUT. CALL LIGHT WITHIN REACH. WILL CONTINUE TO MONITOR.
--- NOTE | 2022-07-14 08:57 | NUR ---
AM NOTE... ASSUMED CARE OF PT AT 0700, PT IS A&Ox4. SHE IS ON THE HOSPITAL VENT AC/PC/SIMV: 17/450/5/40%. SHE WAS CHANGED TO HER HOME VENT AT 0805 BY RT. L/S VERY DIM T/O WITH SCATTERED WHEEZES. THE PT HAS INCREASED SECRETIONS FROM YESTERDAY. SHE IS IN SR IN THE 70'S-80'S BP IS STABLE. NO SWELLING OR EDEMA NOTED ON THIS ASSESSMENT. BT PRESENT, DOBHOFF IS SECURED AND RUNNING TUBE FEEDS PER ORDERS. PLAN OF CARE IS TO GET THE PT UP OUT OF BED, SPEECH EVAL WITH A DIET AND TO KEEP HER ON HER HOME VENT. WILL CONTINUE TO MONITOR.
--- NOTE | 2022-07-14 14:05 | NUR ---
PT UPDATE.... PT HAS BEEN ASKING STAFF AND FAMILY FOR A 10MLS SYRINGE TO INFLATE/DEFLATE HER TRACH CUFF, WHEN TOLD THAT SHE CANNOT HAVE A SYRINGE FOR HER CUFF AND THAT RT WOULD NEED TO BE CALLED THE PT BECAME UPSET. AFTER THIS RN LEFT THE ROOM THE PT DISCONNECTED HER INNER CANNULA AND PULLED IT OUT. THIS RN WENT QUICKLY BACK INTO THE ROOM TO REPLACE THE INNER CANNULA BEFORE THE PT DECOMPENSATED. THIS RN ASKED THE PT WHY SHE HAD DONE THIS SHE JUST SHRUGGED HER SHOULDERS AND LOOKED AWAY. THE PT HAS HAD MULTIPLE FAMILY MEMBERS VISIT TODAY. SHE HAS ALSO REFUSED TO GET INTO THE RECLINER CHAIR WELL REFUSED A BEDBATH. WILL CONTINUE TO MONITOR.
--- NOTE | 2022-07-14 17:56 | NUR ---
SHIFT SUMMARY.... NO ACUTE NEGATIVE CHANGES NOTED THIS SHIFT. THE PT HAS BEEN ON HER HOME VENT SINCE 08 THIS MORNING SHE HAS NOT ASKED TO GO BACK ON THE HOSPITAL VENT TODAY. HER VS HAVE BEEN STABLE T/O THIS SHIFT. SHE HAD A SPEECH EVAL THIS AM AND FAILED, PLAN IS FOR THE PT TO HAVE A BARIUM SWALLOW TOMORROW. HER TUBE FEEDS ARE RUNNING AT 25MLS/HR WHICH IS THE GOAL RATE. THIS WAS STOPPED AT 1130 D/T THE PT C/O OF "BURNING" ABD PAIN AND NAUSEA. SHE WAS MEDICATED WITH ZOFRAN PER EMAR AND THE TUBE FEEDS WERE STOPPED FOR 30MINS. THE PT IS STILL C/O OF THE "BURNING" ABD PAIN BUT DENIES ANY N/V. SHE WAS UP IN THE CHAIR FOR APOX 4 HRS THIS SHIFT, 2P TRANSFER D/T THE VENT AND OTHER TUBES/CORDS. SHE WAS MEDICATED Q4 HRS PER EMAR FOR PAIN. HER ZENDEJAS IS PATENT AND DRAINING TO GRAVITY. SECRETIONS HAVE DECREASED THE SECOND HALF OF THIS SHIFT THEY ARE STILL VERY THICK AND EMERSON. CALL LIGHT IN REACH WILL CONTINUE TO MONITOR UNTIL REPORT IS GIVEN TO ONCOMING RN.
[2022-07-15 03:30] LABS: BASOPHILS ABSOLUTE AUTO 0.03 K/mm3 (0.00-0.23); BASOPHILS PERCENT AUTO 0 % (0-2); EOSINOPHILS ABSOLUTE AUTO 0.17 K/mm3 (0.00-0.68); EOSINOPHILS PERCENT AUTO 2 % (0-6); Hematocrit 24.1 % (33.0-51.0); Hemoglobin 7.2 g/dL (11.5-16.0); IMMATURE GRAN ABSOLUTE AUTO 0.04 K/mm3 (0.00-0.10); IMMATURE GRAN PERCENT AUTO 1 % (0-1); LYMPHOCYTES ABSOLUTE AUTO 0.76 K/mm3 (0.84-5.20); LYMPHOCYTES PERCENT AUTO 10 % (21-46); MONOCYTES ABSOLUTE AUTO 0.39 K/mm3 (0.16-1.47); MONOCYTES PERCENT AUTO 5 % (4-13); Mean Corpuscular HGB 26.4 pg (26.0-34.0); Mean Corpuscular HGB Conc 29.9 g/dL (31.5-36.5); Mean Corpuscular Volume 88 fL (80-100); NEUTROPHILS ABSOLUTE AUTO 6.02 K/mm3 (1.96-9.15); NEUTROPHILS PERCENT AUTO 81 % (41-73); Platelet Count 208 K/mm3 (150-400); RDW Coefficient Variation 17.8 % (11.7-14.2); RDW Standard Deviation 57.4 fL (35.1-46.3); Red Blood Cell Count 2.73 M/mm3 (3.80-5.20); White Blood Cell Count 7.41 K/mm3 (4.00-11.30)
[2022-07-15 03:47] LABS: Bun/Creatinine Ratio 42.2 (12.0-20.0); Calcium, Blood 8.8 mg/dL (8.5-10.1); Creatinine, Blood 0.62 mg/dL (0.40-1.00); Magnesium, Blood 2.2 mg/dL (1.6-2.4); Phosphorus, Blood 3.1 mg/dL (2.5-4.9); Potassium, Blood 4.1 mmol/L (3.5-5.5)
--- NOTE | 2022-07-15 05:23 | NUR ---
SHIFT SUMMARY PATIENT ORIENTED X4 OVERNIGHT. CONTINUES TO RECEIVE SCHEDULED AND PRN MEDICATIONS MULTIPLE TIMES THROUGHOUT SHIFT FOR ANXIETY AND PAIN, SEE MAR. PATIENT STATES THAT SHE IS GOING TO ASK DR PINA FOR MORE IV PAIN MEDICATIONS IN THE MORNING; STATES HER DESIRE TO HAVE IT WHENEVER SHE DESIRES. REINFORCED PAIN REGIMEN WITH PATIENT; REMINDED HER OF THE CONVERSATION WITH DR PINA YESTERDAY IN WHICH HE STATED HE COULD NOT ESCALATE IV MEDICATIONS FURTHER AT THIS TIME. MONITOR SHOWING SR, HR 70-90S. SBP 80-110S. AFEBRILE. REMAINED ON HOME VENT, SIMV WITH 10L BLED IN, FOR THE ENTIRE NIGHT. NO DESATS NOTED. STILL PRODUCING THICK SECRETIONS FROM TRACH. REFUSING TRACH CARE AND ORAL CARE, DESPITE REPEATED EDUCATION (ESPECIALLY GIVEN HX OF SEVERAL PNEUMONIAS). TUBEFEEDS AT GOAL RATE; PLAN FOR BARIUM SWALLOW EVAL TODAY. PATIENT C/O REFLUX/BURNING, AND GIVEN PRN TUMS WITH RELIEF. ZENDEJAS CATHETER TO DD, 850CC OUTPUT. NEW POWERGLIDE PLACED. PT REFUSED BATH, BUT DID AGREE TO WASH HER OWN FACE AND PUT ON CHAPSTICK.
--- NOTE | 2022-07-15 07:15 | NUR ---
ASSUMPTION OF CARE PT REMAINS ON HOME VENT VIA TRACH WITH SETTINGS SIMV 17/500/7 WITH 10L BLEED IN. PT A&OX4, PARTICIPATES IN CONVERSATION BY NODDING/SHAKING HEAD AND MOUTHING WORDS. SHE ASSISTS WITH CARE. PT C/O BACK AND GENERALIZED PAIN, MEDICATED PER EMAR. TUBE FEEDING INFUSING VIA DOBHOFF. ZENDEJAS PATENT AND DRAINING TO GRAVITY. VSS. BED IN LOW POSITION, CALL LIGHT WITHIN REACH.
--- NOTE | 2022-07-15 09:16 | NUR ---
ASSUMPTION OF CARE: PT REMAINS ON HOME VENT VIA TRACH. TUBE FEEDING CONTINUES TO INFUSE @ GOAL RATE PER DOBHOFF. ZENDEJAS IN PLACE, DRAINING YELLOW URINE TO GRAVITY. PT COMPLAINING OF GENERALIZED PAIN THROUGHOUT, MEDICATED PER EMAR. PT AOx4, ABLE TO PARTICIPATE DURING ACTS OF CARE. VS REMAIN STABLE. CALL LIGHT WITHIN REACH.
--- NOTE | 2022-07-15 11:50 | NUR ---
BARIUM SWALLOW EVALUATION: SWALLOW EVALUATION PASSED. DIET WILL BE ORDERED BY SPEECH THERAPY. TUBE FEEDING STOPPED, WILL BE DC'D ONCE DIET IS ORDERED.
--- NOTE | 2022-07-15 11:52 | NUR ---
UPDATE ON MUSCULOSKELETAL ASSESSMENT: INDWELLING ZENDEJAS CATHER RMVD ORDERED. PT ABLE TO VERBALIZE NEED FOR RESTROOM. PT ABLE TO TOLERATE AMBULATING TO BSC W/ 1 PERSON ASSIST AND FWW.
--- NOTE | 2022-07-15 16:00 | NUR ---
UPDATE PT HAS BEEN MORE ALERT AND INTERACTIVE THROUGHOUT THE DAY. SHE CONTINUES TO COMMUNICATE BY NODDING/SHAKING HEAD AND MOUTHING WORDS. SHE REMAINS ON HER HOME VENT VIA TRACH WITH SETTINGS SIMV 17/500/7 AND 10L O2 BLEED IN. PT COARSE AND DIMINISHED THROUGHOUT. MODERATE AMOUNT OF THICK SECRETIONS. TUBE FEEDING STOPPED AND HAVE BEEN OFF SINCE BARIUM SWALLOW STUDY. DOBHOFF REMAINS IN PLACE. HR 80S-110S ON MONITOR, BP STABLE. PT ASSISTED TO BEDSIDE COMMODE TO VOID TWICE WITH MODERATE 1 PERSON ASSISTANCE AND WALKER. PT TRANSITIONED TO PCU STATUS. FAMILY AT BEDSIDE PREVIOUSLY AND AWARE OF TRANSITION.
--- NOTE | 2022-07-16 05:54 | NUR ---
SHIFT SUMMARY PATIENT ALERT AND ORIENTED X4. PATIENT COMMUNICATES THROUGH WRITING AND MOUTHING WORDS SINCE SHE HAS A TRACH. PATIENT ABLE TO BEAR WEIGHT AND TRANSFER WITH MINIMAL ASSISTANCE TO THE BEDSIDE COMMODE. LUNG SOUNDS COARSE T/O AND DIMINISHED IN THE BASES. SPO2 >90% ON HER HOME VENT, SUCTIONED NEEDED BY THIS RN AND RT. MEDICATED PER EMAR FOR PAIN. HEART SINUS RHYTHM ON TELEMETRY. NO ACUTE ISSUES NOTED OVERNIGHT. WILL CONTINUE TO MONITOR. CALL LIGHT WITHIN REACH.
--- NOTE | 2022-07-16 06:46 | NUR ---
PHYSICIAN COMMUNICATION CONTACTED DR RICHEY TO NOTIFY HIM THAT THE PATIENT CURRENTLY HAS A BLOOD PRESSURE OF 82/55 WITH A MAP OF 64. DR RICHEY ORDERED A 500 ML NORMAL SALINE BOLUS.
[2022-07-16] MEDS ORDERED: CLON1 PO (13:23)
[2022-07-16] MEDS ORDERED: OMEP20ER PO (13:24)
[2022-07-16] MEDS ORDERED: VISBIOME 112.51 EACH PO (13:25)
[2022-07-16] MEDS ORDERED: MIDO5 PO (14:08)
--- NOTE | 2022-07-16 17:29 | NUR ---
pt left with ems remained on vent. Temitope Bolanos called with update and made aware of new medications.
== END 2022-07-16 17:00 | disposition home or self-care (01) | DRG 207 ==
LOC: PCU 17:55 → ICUE 07-06 02:45 → ICUW 07-06 02:45 → ICUE 07-06 05:07 → PCU 07-07 14:28
PROVIDERS: Internal Medicine; Internal Medicine Critical Care Medicine; Specialist; ADMIT Internal Medicine
PROC: 0DH67UZ Insertion of Feeding Device into Stomach, Via Natural or Artificial Opening (ICD-10-PCS; principal; 2022-07-06)
PROC: 5A1955Z Respiratory Ventilation, Greater than 96 Consecutive Hours (ICD-10-PCS; 2022-07-06)
PROC: 0BH17EZ Insertion of Endotracheal Airway into Trachea, Via Natural or Artificial Opening (ICD-10-PCS; 2022-07-06)
PROC: 0T2BX0Z Change Drainage Device in Bladder, External Approach (ICD-10-PCS; 2022-07-06)
PROC: 0B21XFZ Change Tracheostomy Device in Trachea, External Approach (ICD-10-PCS; 2022-07-07)
DX: J96.21 Acute and chronic respiratory failure with hypoxia (principal); J18.9 Pneumonia, unspecified organism; Z99.11 Dependence on respirator [ventilator] status; F11.20 Opioid dependence, uncomplicated; F13.20 Sedative, hypnotic or anxiolytic dependence, uncomplicated; E27.40 Unspecified adrenocortical insufficiency; Z68.1 Body mass index [BMI] 19.9 or less, adult; J96.22 Acute and chronic respiratory failure with hypercapnia; F41.9 Anxiety disorder, unspecified; M81.0 Age-related osteoporosis without current pathological fracture; F32.A Depression, unspecified; G25.81 Restless legs syndrome; F17.210 Nicotine dependence, cigarettes, uncomplicated; G89.4 Chronic pain syndrome; J43.9 Emphysema, unspecified; D63.1 Anemia in chronic kidney disease; E87.5 Hyperkalemia; E16.2 Hypoglycemia, unspecified; R62.7 Adult failure to thrive; I95.9 Hypotension, unspecified; N18.30 Chronic kidney disease, stage 3 unspecified; I12.9 Hypertensive chronic kidney disease with stage 1 through stage 4 chronic kidney disease, or unspecified chronic kidney disease; B96.5 Pseudomonas (aeruginosa) (mallei) (pseudomallei) as the cause of diseases classified elsewhere; B96.4 Proteus (mirabilis) (morganii) as the cause of diseases classified elsewhere; Z85.41 Personal history of malignant neoplasm of cervix uteri; Z98.890 Other specified postprocedural states; Z86.19 Personal history of other infectious and parasitic diseases; Z93.0 Tracheostomy status; Z86.14 Personal history of Methicillin resistant Staphylococcus aureus infection; Z79.899 Other long term (current) drug therapy; Z79.51 Long term (current) use of inhaled steroids; Z79.811 Long term (current) use of aromatase inhibitors; Z79.52 Long term (current) use of systemic steroids; Z79.2 Long term (current) use of antibiotics; Z87.09 Personal history of other diseases of the respiratory system
CPT/HCPCS: 31502; 31720; 36415; 51702; 71045; 74230; 80048; 80053; 81001; 82803; 82947; 83735; 83880; 84100; 85025; 87086; 92526; 92610; 92611; 94002; 94003; 94640; 94644; 94664; 94762; 96372; 96374; 96375; 96376; A9270; C1751; G0378; J0713; J1642; J1650; J2060; J2270; J2405; J2704; J7030; J7040; J7050; J7512